=== PATIENT | male | born 1945 | race Hispanic/Latino ===

== ENCOUNTER 2016-08-06 10:17 | Inpatient (IN) | payer MEDICARE ==
--- NOTE | 2016-08-06 11:22 | ED PDOC ---
Arrival/HPI - General Chief Complaint: Lower Extremity Problem/Injury Time Seen by Provider: 08/06/16 10:59 Historian: Patient - History of Present Illness Narrative History of Present Illness (Text): 08/06/16 11:20 70 year old male whose past medical history includes congestive heart failure, pleural effusion, atrial fibrillation, diabetes, hypertension, and lower extremity edema presents to the emergency department with left knee pain and right wrist pain for the past 2 days. Patient states he has had similar knee pain in the past and reports history of arthritis in the left lower extremity. He states he has not seen his PMD for this episode. No other complaints at this time. Time/Duration: < week Symptom Onset: Gradual Symptom Course: Unchanged Associated Symptoms (Text): None Past Medical History - Provider Review Nursing Documentation Reviewed: Yes - Infectious Disease Hx of Infectious Diseases: None - Tetanus Immunization Tetanus Immunization: Unknown - Cardiac Hx Cardiac Disorders: Yes (mi x3,HEART STENTS) Hx Congestive Heart Failure: Yes Hx Hypertension: Yes - Pulmonary Hx Respiratory Disorders: Yes (SMOKED CIGARETTES 1 PPD) - Neurological Hx Neurological Disorder: Yes (NEUROPATHY) - HEENT Hx HEENT Disorder: No - Renal Hx Renal Disorder: No - Endocrine/Metabolic Hx Diabetes Mellitus Type 2: Yes - Hematological/Oncological Hx Blood Disorders: Yes Hx Cancer: Yes (stomacg ca, 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 QUIT.) Hx Emotional Abuse: No Hx Physical Abuse: No Hx Substance Use: No - Surgical History Hx Amputation: Yes (1960 amputation of all toes on right foot) Other/Comment: multiple heart catherizations - Anesthesia Hx Anesthesia: Yes Hx Anesthesia Reactions: No Hx Malignant Hyperthermia: No - Suicidal Assessment Feels Threatened In Home Enviroment: No Family/Social History - Physician Review Nursing Documentation Reviewed: Yes Family/Social History: Unknown Family HX Smoking Status: Former Smoker Hx Alcohol Use: Yes (QUIT 2015 DRINKS 6 PK/BEER DAILY.) Hx Substance Use: No Hx Substance Use Treatment: No Allergies/Home Meds Allergies/Adverse Reactions: Allergies No Known Allergies Allergy (Verified 08/06/16 10:49) Home Medications: Home Meds Medication Instructions Recorded Confirmed Digoxin 125 mcg PO DAILY 02/24/12 08/06/16 Glipizide [Glucotrol Xl] 10 mg PO BID 02/24/12 08/06/16 Metformin HCl [Metformin HCl ER] 1,000 mg PO BID 02/24/12 08/06/16 Carvedilol [Coreg] 25 mg PO BID 11/08/15 08/06/16 Ergocalciferol (Vitamin D2) 2,000 iu PO BID 11/08/15 08/06/16 [Vitamin D2] Famotidine [Pepcid] 20 mg PO BID 11/08/15 08/06/16 Flaxseed Oil [Natural Flax Seed 2,000 mg PO BID 11/08/15 08/06/16 Oil] Gabapentin [Neurontin] 600 mg PO TID 11/08/15 08/06/16 Nitroglycerin [Nitrostat] 0.4 mg SL PRN PRN 11/08/15 08/06/16 [id number] Ethyl Esters [OMEGA 3] 2,000 mg PO BID 11/08/15 08/06/16 Pravastatin Sodium 40 mg PO DAILY 11/08/15 08/06/16 Vit Bcomp,C/Folic Acid/Zinc [Abena 1 tab PO DAILY 11/08/15 08/06/16 B Strong with C & Zinc Tb] Vitamin E Acetate [Vitamin E] 800 unit PO BID 11/08/15 08/06/16 Warfarin [Coumadin] 2.5 mg PO DAILY 11/08/15 08/06/16 [id number] CD [Cardizem CD] 180 mg PO DAILY 11/08/15 08/06/16 Aspirin [Ecotrin] 81 mg PO DAILY 11/12/15 08/06/16 Review of Systems - Physician Review All systems were reviewed & negative as marked: Yes Physical Exam - Physical Exam Narrative Physical Exam (Text): - Review of Systems Constitutional: Normal. absent: Fatigue, Weight Change, Fevers Eyes: Normal ENT: Normal Respiratory: Normal absent: SOB, Cough, Sputum Cardiovascular: Normal absent: Chest pain, Palpitations, Syncope Gastrointestinal: Normal absent: Abdominal pain, Diarrhea, Nausea, Vomiting Genitourinary: Normal. absent: Dysuria, Frequency, Hematuria Musculoskeletal: Right wrist pain, Left knee pain. absent: Back Pain, Neck Pain Skin: Normal Neurological: Normal absent: Focal Weakness Endocrine: Normal Hemo/Lymphatic: Normal Psychiatric: Normal - Physical exam Patient appears age appropriate, speaking full sentences without difficulty - Systems Exam Head: Present: Atraumatic, Normocephalic Pupils: Present: PERRL Extraocular Muscles: Present: EOMI Conjunctiva: Present: Normal Mouth: Present: Moist Mucous Membranes Neck: Present: Normal Range of Motion. No: MIDLINE TENDERNESS, Paraspinal Tenderness Respiratory/Chest: Present: Clear to Auscultation, Good Air Exchange. No: Respiratory Distress, Accessory Muscle Use, Tachypneic Cardiovascular: Present: Regular Rate, Irregular Rhythm, Normal S1, S2, Peripheral Pulses Present. No: Murmurs Abdomen: Present: Normal Bowel Sounds, No: Tenderness, Peritoneal Signs, Rebound, Guarding, Distention Back: Present: Normal Inspection. No: Midline Tenderness, Paraspinal Tenderness Upper Extremity: Present: Right wrist: Tenderness to palpation, Swelling, Distal neurovascular intact, Full range of motion. No: Erythema Lower Extremity: Present: Left lower extremity: Tenderness to palpation over the medial aspect of the left knee, Distal neurovascular intact, Full range of motion. No swelling or effusion appreciated. No tenderness over patella. No warmth or erythema. Neurological: Present: GCS=15, Speech Normal, cranial nerves II through XII fully intact with no cerebellar abnormality, neuro-sensory fully intact. No focal neurological deficits. Skin: Present: Warm, Dry, Normal Color. No: Rashes Lymphatic: Present: OX3, NI, NC Psychiatric: Present: Alert, Oriented x 3, Normal Insight, Normal Concentration Vital Signs Reviewed: Yes Vital Signs Temp Pulse Resp BP Pulse Ox 08/06/16 13:51 59 L 18 127/68 98 08/06/16 12:37 67 18 118/75 92 L 08/06/16 10:51 98.9 F 76 16 114/63 91 L Temperature: Afebrile Blood Pressure: Normal Pulse: Regular Respiratory Rate: Normal Appearance: Positive for: Well-Appearing, Non-Toxic Mental Status: Positive for: Alert and Oriented X 3 Medical Decision Making ED Course and Treatment: Impression: 70 year old male whose past medical history includes congestive heart failure, pleural effusion, atrial fibrillation, diabetes, hypertension, and lower extremity edema presents to the emergency department with left knee pain and right wrist pain for the past 2 days. On physical exam, patient has tenderness to palpation and swelling of the right wrist, and tenderness to palpation over the medial aspect of the left knee. Patient ambulating with cane, bearing weight. Full range of motion. Based on history and physical, no suspicion for septic joint. Differential Diagnosis include but are not limited to: Gout vs arthritis Plan: -- XR's Right wrist, Left knee -- Labs -- Percocet -- Reassess and disposition Prior Visits: Notes and results from previous visits were reviewed. Patient last discharged after being treated for CHF. Progress Notes: XR Right Wrist Chocolate Molder: Michoacano Sanabria MD IMPRESSION: Normal right wrist radiographs XR Left Knee Chocolate Molder: Michoacano Sanabria MD IMPRESSION: Normal radiographs of the left knee. 08/06/16 14:06 pt was informed that we need to perform arthrocenthesis for further w/u, but he refused. I then offered admission for med. management, but pt asked to be dc'd home states he would like to f/u with an orthopedist outpatient 08/06/16 14:16 pt unable to ambulate in the ER states he leans on his R. hand with cane and lives alone pt now willing to stay in the hospital dw Dr. Ivory Holt, accepted admission to his service, Dr. Solitario on consult pt aware of and agrees with plan - Lab Interpretations Lab Results: 08/06/16 11:44 08/06/16 11:44 Lab Results 08/06/16 11:44: Sodium 140, Potassium 4.1, Chloride 99, Carbon Dioxide 30, Anion Gap 15, BUN 27 H, Creatinine 1.6 H, Est GFR ( Amer) 52, Est GFR ( Non-Af Amer) 43, Random Glucose 86, Calcium 9.7, Total Bilirubin 1.8 H, AST 33, ALT 23, Alkaline Phosphatase 73, Total Protein 8.3, Albumin 4.5, Globulin 3.7, Albumin/Globulin Ratio 1.2 08/06/16 11:44: PT 15.1 H, INR 1.40 H, APTT 33.0 H 08/06/16 11:44: WBC 7.6 D, RBC 4.80, Hgb 11.8 L, Hct 36.7 L, MCV 76.5 L, MCH 24.6 L, MCHC 32.2, RDW 19.8 H, Plt Count 168, MPV 10.0, Gran % 74.9 H, Lymph % ( Auto) 13.4 L, Tyrrell % (Auto) 10.7 H, Eos % (Auto) 0.3 L, Baso % (Auto) 0.7, Gran # 5.70, Lymph # 1.0 L, Tyrrell # 0.8 H, Eos # 0.0, Baso # 0.05, ESR 35 H - RAD Interpretation Radiology Orders: 08/06/16 11:24 KNEE LEFT 2 VIEWS (AP & LAT) [RAD] Stat WRIST, RIGHT 3 VIEWS [RAD] Stat - Medication Orders Current Medication Orders: Discontinued Medications Oxycodone/Acetaminophen (Percocet 5/325 Mg Tab) 1 tab PO STAT STA Stop: 08/06/16 11:25 Last Admin: 08/06/16 11:43 Dose: 1 tab - Scribe Statement The provider has reviewed the documentation as recorded by the Chepe Bangura Provider Scribe Attestation: All medical record entries made by the Chepe were at my direction and personally dictated by me. I have reviewed the chart and agree that the record accurately reflects my personal performance of the history, physical exam, medical decision making, and the department course for this patient. I have also personally directed, reviewed, and agree with the discharge instructions and disposition. Disposition/Present on Arrival - Present on Arrival Any Indicators Present on Arrival: No History of DVT/PE: No History of Uncontrolled Diabetes: No Urinary Catheter: No History of Decub. Ulcer: No History Surgical Site Infection Following: None - Disposition Have Diagnosis and Disposition been Completed?: Yes Diagnosis: Arthralgia Disposition: HOSPITALIZED Disposition Time: 14:10 Patient Plan: Admission Patient Problems: Current Active Problems Problem Status Onset Arthralgia Acute Condition: FAIR Prescriptions: oxyCODONE/Acetaminophen [Percocet 5/325 mg Tab] 1 ea PO BID PRN #6 tab PRN Reason: Pain, Moderate (4-7) Referrals: Palmer Whalen MD [Primary Care Provider] - Follow up with primary
[2016-08-06] MEDS ORDERED: Oxycodone/Acetaminophen 5/325 mg Tab PO STA (11:24)
[2016-08-06 11:46] LABS: ADD MANUAL DIFF? NO
[2016-08-06 12:02] LABS: ALB/GLOB RATIO 1.2 (1.1-1.8); BILIRUBIN,TOTAL 1.8 mg/dL (0.2-1.3); CALCIUM 9.7 mg/dL (8.4-10.5); POTASSIUM 4.1 mmol/L (3.6-5.0); TOTAL PROTEIN 8.3 g/dL (5.8-8.3)
[2016-08-06 12:03] LABS: BASO # 0.05 K/mm3 (0.0-2.0); BASO % 0.7 % (0.0-3.0); EOS % 0.3 % (1.5-5.0); GRAN % 74.9 % (50.0-68.0); HEMATOCRIT 36.7 % (42.0-52.0); LYMPH % 13.4 % (22.0-35.0); MEAN CELL VOLUME 76.5 fL (80.0-105.0); MEAN CORPUSCULAR HEMOGLOBIN 24.6 pg (25.0-35.0); MEAN CORPUSCULAR HGB CONC 32.2 g/dl (31.0-37.0); MONO # 0.8 (0.1-0.6); MONO % 10.7 % (1.0-6.0); PLATELET COUNT 168 10^3/uL (120.0-450.0); RED CELL DISTRIBUTION WIDTH 19.8 % (11.5-14.5); WHITE BLOOD COUNT 7.6 10^3/ul (4.5-11.0)
[2016-08-06 12:06] LABS: INR 1.4 (0.93-1.08)
--- NOTE | 2016-08-06 12:38 | RAD ---
PROCEDURE: Left Knee Radiographs. HISTORY: Pain. COMPARISON: None. FINDINGS: BONES: Normal. No fracture. JOINTS: Normal. No osteoarthritis. JOINT EFFUSION: None. OTHER FINDINGS: None. IMPRESSION: Normal radiographs of the left knee.
--- NOTE | 2016-08-06 12:39 | RAD ---
PROCEDURE: Right Wrist Radiographs. HISTORY: swelling, pain COMPARISON: None. FINDINGS: BONES: Normal. No fracture. JOINTS: Normal. No dislocation. SOFT TISSUES: Normal. OTHER FINDINGS: None. IMPRESSION: Normal right wrist radiographs.
[2016-08-06 13:40] LABS: ERYTHROCYTE SEDIMENTATION RATE 35 mm/hr (0.00-15.0)
[2016-08-06] MEDS ORDERED: cefTRIAXone 1 gm 100 ML IV STA (14:13)
[2016-08-06] MEDS ORDERED: cefTRIAXone 1 gm 1 GM/100 ML BAG IV STA (14:15)
[2016-08-06] MEDS: Oxycodone/Acetaminophen 5/325 mg Tab PO PRN ×2 (14:48→18:34)
[2016-08-06] MEDS: Digoxin 125 mcg (0.125 mg) Tab PO SCH (16:14)
[2016-08-06] MEDS: diltiaZEM 180 mg/24 Hours CD Cap PO SCH (18:26)
[2016-08-06] MEDS: GlipiZIDE 10 mg SR Tab PO SCH (18:27)
[2016-08-07 02:41] VITALS: BMI 25.9
[2016-08-07] MEDS: diltiaZEM 180 mg/24 Hours CD Cap PO SCH (09:29)
[2016-08-07] MEDS: Digoxin 125 mcg (0.125 mg) Tab PO SCH (09:32)
[2016-08-07] MEDS: GlipiZIDE 10 mg SR Tab PO SCH ×2 (09:32→17:15)
[2016-08-07] MEDS: Enoxaparin 80 mg Syringe SC SCH ×2 (09:33→21:35)
[2016-08-07] MEDS ORDERED: Bupivacaine 0.5% Inj(30mL) IJ ONE (09:38)
[2016-08-07] MEDS ORDERED: MethylPREDNISolone Depo 40 mg/ml Inj IM ONE (09:38)
[2016-08-07 10:01] LABS: FLUID TYPE SYNOVIAL FLUID
--- NOTE | 2016-08-07 10:41 | HP ---
CHIEF COMPLAINT AND HISTORY OF PRESENT ILLNESS: This is a 70-year-old male who is coming into the [facility] with complaints of swelling in his left knee and right wrist. The patient says this started h appening about 2-3 days ago and has been getting progressively worse. He has a history of diabetes, hypertension, atrial fibrillation, CHF. The patient says that he has difficulty in ambulating becaus e of the pain. He has no fevers or chills, no nausea, no vomiting, no abdominal pain, no back pain, no dysuria or frequency, no nocturia. ALLERGIES: No known drug allergies. PAST MEDICAL HISTORY: As above. 1. Congestive heart failure secondary to systolic dysfunction. 2. Coronary artery disease with stents. 3. Atrial fibrillation. 4. Defibrillator. 5. Hypertension. 6. Diabetes type 2. 7. Stomach cancer in 1997. 8. Peripheral neuropathy. PAST SURGICAL HISTORY: 1. Stomach surgery in 1997. 2. Amputation of the toes of the right foot. SOCIAL HISTORY: He says he smokes 1 pack per day for 50 years. He was an alcoholic but quit in 2015 . He was drinking 6 pack of beer per day. He denies drug use. 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 FAMILY HISTORY: Father at 72 of diabetes. Mother at 94 of old age. PHYSICAL EXAMINATION: VITAL SIGNS: He has a temperature of 98.2, pulse of 56, blood pressure 115/66, respirations 18, O2 s aturation 94%. Height is 5 feet 11 inches. Weight is 186 pounds, BMI is 25.9. GENERAL: Patient lying in bed, flat, and in no apparent distress. HEAD AND NECK EXAM: Atraumatic, normocephalic. Conjunctivae are pink. Throat clear and mouth with moist mucosa. Oropharynx benign. EYES: Extraocular movements are intact. PERRLA. NECK: Supple. No JVD, thyromegaly, or adenopathy. No bruits. HEART: S1 and S2 regular rate and rhythm. No murmurs, rubs, or gallops. LUNGS: Clear to auscultation bilaterally. No wheezing rales or rhonchi appreciated. No retractions on exam. ABDOMEN: Soft, nontender, nondistended. Bowel sounds are positive in all quadrants. No rebound. No hepatosplenomegaly. EXTREMITIES: No cyanosis, clubbing, or edema. NEURO: No facial asymmetry, tongue is midline, no uvula deviation. Power is 5/5 in upper extremity and 5/5 in lower extremity. Sensation is normal in upper extremity and lower extremity. PSYCH: Awake, alert, oriented x3. No anxiety or depression symptoms. Good insight. Normal affect . : No CVA tenderness VASCULAR: 2+ pulses in carotid and pedal pulses. SKIN: No erythema or abnormal nodules noted. SPINE: Normal curvature. LYMPHADENOPATHY: No anterior cervical or posterior cervical adenopathy. No inguinal adenopathy. RIGHT HAND: There is swelling. Decreased range of motion of the right wrist because of pain. LEFT KNEE: There is swelling. There is pain on palpation. LABORATORY DATA: White count of 7.6, hemoglobin 11.8, platelet count is 168. Chemistry shows a sodi um 140, potassium 4.1, creatinine is 1.6. His baseline creatinine is 1.6 initially. His uric acid i s 13. Wrist x-ray of right shows normal wrist. Left knee x-ray shows normal radiographs of the left knee. Chest x-ray shows no infiltrates. ASSESSMENT: 1. Acute gout attack. 2. Atrial fibrillation. 3. Diabetes type 2. 4. Coronary artery disease. 5. Hypertension. 6. Smoking. 7. Gait dysfunction, right. 8. Neuropathy. PLAN: The patient is going to be admitted to the hospital. He is going to be seen by Dr. Markus ch. The patient is on Coumadin. He is going to continue. He is on aspirin. The patient is on Gluc otrol for his diabetes. He is receiving Neurontin for neuropathy. The patient was given a dose of R ocephin. I will place him on colchicine. I will also get evaluation by orthopedics. He is subthera peutic on his anticoagulation so I will place him on Lovenox. Kike Holt MD cc: [id number] TT: 08/07/2016 10:40:40 nd
[2016-08-07 10:54] LABS: SYNOVIAL FLUID LYMPHOCYTE 22.5 % (0-0); SYNOVIAL FLUID NEUTROPHIL 77.5 % (0-0); SYNOVIAL FLUID TOTAL COUNT 100 (0-0)
--- NOTE | 2016-08-07 10:56 | CON ---
DATE: 08/07/2016 This is a 70-year-old male in room 561, bed 1. Complaint of left knee pain and right wrist pain. Past history of gout and he does have a high uric acid, and he has an effusion of his left knee and an effusion and tenderness of his right wrist ulnar side. So we did an aspiration arthrocentesis of his left knee, taking out 50 mL of turbid fluid and irrigated it with 20 mL of normal saline to dilute the abnormal fluid and injected with Depo-Medrol and Marcaine. With the wrist, we localized the pain to the ulnar side of the right wrist dorsally. You could feel like there is some fluid, so we put a 23 gauge needle in there. Was unable to aspirat e any fluid, but we did inject with Depo-Medrol and Marcaine as it was swollen. With history of gout , it looks like it is an inflammatory arthritis of the right wrist and left knee, but the fluid from the knee will be going for culture, cell count and crystal analysis. We will follow him closely and, if need be, we can get a culture from the right wrist if it reaccumulates next time. FINAL DIAGNOSES: Pain at the left knee and right wrist with inflammatory arthritis as the x-rays do show signs of mild arthritis of the left knee and right wrist. Will wait to see how the response is to the injections. In the meantime, will send the fluid for analysis for a cell count, culture and c rystals. Michoacano Trinh DO cc: [id number] TT: 08/07/2016 10:55:48 Confirmation # [id number] Dictation # [id number] mn
[2016-08-07] MEDS: Oxycodone/Acetaminophen 5/325 mg Tab PO PRN ×3 (12:04→21:33)
[2016-08-07] MEDS ORDERED: Insulin Regular 1 UNITS/0.01 ML ML SC STA (21:21)
--- NOTE | 2016-08-07 21:32 | CP.PCM.PN ---
Subjective - Date & Time of Evaluation Date of Evaluation: 08/07/16 Time of Evaluation: 21:23 - Subjective Subjective: S:Nurse calls me and gives me information that FSBS 500 mg%,On steroids. He was seen by me at bedside. He has no symptoms. No history of DM. Has family history of DM, father and mother both have DM. Medical record was reviewed. O: Last Vital Signs 3 Temp 98.2 F 08/07/16 16:00 Pulse 61 08/07/16 17:20 Resp 19 08/07/16 16:00 BP 120/61 08/07/16 17:20 Pulse Ox 95 08/07/16 16:00 Awake, alert ,no in distress. LUNGS: Normal breathing pattern. NEURO: Speech normal. A:Hyperglycemia. On steroids. P:Regular insulin 15 units SC STAT. Will place on medium sliding scale. Objective - Vital Signs/Intake and Output Vital Signs (last 24 hours): Temp Pulse Resp BP Pulse Ox 98.2 F 61 19 120/61 95 08/07/16 16:00 08/07/16 17:20 08/07/16 16:00 08/07/16 17:20 08/07/16 16:00 - Medications Medications: Current Medications Aspirin (Ecotrin) 81 mg PO DAILY [facility] Last Admin: 08/07/16 09:32 Dose: 81 mg Carvedilol (Coreg) 25 mg PO BID [facility] Last Admin: 08/07/16 17:20 Dose: 25 mg Colchicine (Colocrys) 0.6 mg PO BID [facility] Last Admin: 08/07/16 17:14 Dose: 0.6 mg Digoxin (Lanoxin) 0.125 mg PO DAILY [facility] Last Admin: 08/07/16 09:32 Dose: 0.125 mg Diltiazem HCl (Cardizem Cd) 180 mg PO DAILY [facility] Last Admin: 08/07/16 09:29 Dose: 180 mg Enoxaparin Sodium (Lovenox) 80 mg SC Q12H [facility] PRN Reason: Protocol Last Admin: 08/07/16 09:33 Dose: 80 mg Famotidine (Pepcid) 20 mg PO BID [facility] Last Admin: 08/07/16 17:16 Dose: 20 mg Furosemide (Lasix) 40 mg PO BID [facility] Last Admin: 08/07/16 17:15 Dose: 40 mg Gabapentin (Neurontin) 600 mg PO TID [facility] PRN Reason: Protocol Last Admin: 08/07/16 17:15 Dose: 600 mg Glipizide (Glucotrol Xl) 10 mg PO BID [facility] Last Admin: 08/07/16 17:15 Dose: 10 mg Insulin Human Regular (Humulin R) 15 units SC STAT STA Stop: 08/07/16 21:22 Oxycodone/Acetaminophen (Percocet 5/325 Mg Tab) 1 tab PO Q4H PRN PRN Reason: Pain, moderate (4-7) Stop: 08/09/16 14:21 Last Admin: 08/07/16 17:16 Dose: 1 tab Prednisone (Prednisone Tab) 20 mg PO DAILY [facility] Last Admin: 08/07/16 09:34 Dose: 20 mg Warfarin Sodium (Coumadin) 2.5 mg PO HS [facility] PRN Reason: Protocol Last Admin: 08/06/16 22:28 Dose: 2.5 mg - Labs Labs: PT 15.1 Seconds (9.9-11.8) H 08/06/16 11:44 INR 1.40 (0.93-1.08) H 08/06/16 11:44 APTT 33.0 Seconds (23.7-30.8) H 08/06/16 11:44
[2016-08-07] MEDS: Insulin Reg-MEDIUM-Coverage SC SCH (22:18)
[2016-08-08 07:33] LABS: HEMATOCRIT 33.9 % (42.0-52.0); MEAN CELL VOLUME 76.2 fL (80.0-105.0); MEAN CORPUSCULAR HEMOGLOBIN 24.7 pg (25.0-35.0); MEAN CORPUSCULAR HGB CONC 32.4 g/dl (31.0-37.0); MEAN PLATELET VOLUME 10.3 fl (7.0-11.0); RED CELL DISTRIBUTION WIDTH 19.5 % (11.5-14.5)
[2016-08-08 07:49] LABS: INR 1.47 (0.93-1.08)
[2016-08-08 07:51] LABS: ALB/GLOB RATIO 1.1 (1.1-1.8); CALCIUM 8.9 mg/dL (8.4-10.5); POTASSIUM 4.2 mmol/L (3.6-5.0)
[2016-08-08] MEDS: Insulin Reg-MEDIUM-Coverage SC SCH (08:29)
[2016-08-08] MEDS: GlipiZIDE 10 mg SR Tab PO SCH ×2 (09:57→17:20)
[2016-08-08] MEDS: Digoxin 125 mcg (0.125 mg) Tab PO SCH (09:57)
[2016-08-08] MEDS: diltiaZEM 180 mg/24 Hours CD Cap PO SCH (09:58)
[2016-08-08] MEDS: Oxycodone/Acetaminophen 5/325 mg Tab PO PRN (10:07)
[2016-08-08] MEDS: Enoxaparin 80 mg Syringe SC SCH ×2 (10:08→21:25)
--- NOTE | 2016-08-08 11:05 | PN ---
DATE: 08/08/2016 A 70-year-old male in room 561, bed 1. The patient was seen yesterday for swelling of his left knee and right wrist. We aspirated the left knee with arthrocentesis evacuating turbid fluid. So far the cultures are pending, but the white count was under 3300, which does not speak for an infection, but he could have an inflammatory arthritis. There was no uric acid crystals seen and no signs of pseud ogout on the x-ray. His wrist was also injected with Depo-Medrol as well as the knee on the left enid e and that is improved also, it is still somewhat swollen, but there is no evidence of a bacterial in fection but I will order tests for Lyme's disease and rheumatoid arthritis and follow him up. As rene g he is getting better, there is no need for surgical intervention. We have to make a better diagnos is with further testing because the uric acid serum-camarena was quite elevated. We will follow him jeovany aaron. Michoacano Trinh DO cc: [id number] TT: 08/08/2016 11:05:34 Confirmation # [id number] Dictation # [id number] rosy
[2016-08-08] MEDS: Insulin Lispro (HUMAlog) HIGH Coverage SC SCH ×3 (12:20→21:25)
[2016-08-08] MEDS: MethylPREDNISolone 40 mg Vial IV SCH ×2 (12:20→21:26)
--- NOTE | 2016-08-08 13:08 | PN ---
DATE: 08/08/2016 SUBJECTIVE: The patient is a 70-year-old, seen and examined, complaining of right hand pain and redn ess, swelling and also complained of left knee pain, has paracentesis done yesterday, still in pain. He states Percocet helps a little bit. PHYSICAL EXAMINATION: VITAL SIGNS: He is afebrile, pulse 55, respirations 20, blood pressure 132/62. LUNGS: Bilateral fair airflow, no rhonchi or crackle. HEART: S1, S2 audible. ABDOMEN: Soft, nontender, no rebound, no guarding. NEUROLOGIC: He is awake and alert, able to communicate. His right base of thumb is red extending to avina the wrist and has left knee effusion with limited mobility. LABORATORY: WBC 6.0, hemoglobin 11, hematocrit 33, platelet of 146. PT 15.9, INR 1.47. Chemistry: Sodium 133, potassium 4.2, chloride 97, CO2 29, BUN 40, creatinine 1.5, blood sugar 386, uric acid i s 13.0, C-reactive protein is 15. Blood culture and urine cultures are negative. ASSESSMENT: 1. Probably acute gouty arthritis. 2. Chronic atrial fibrillation. 3. Hypertension. 4. Hyperlipidemia. 5. Non-insulin dependent diabetes. PLAN: The patient is on Cardizem-CD. I will increase his colchicine to 0.6 t.i.d. for today. Noemí nue him on his Coumadin, monitor his blood sugar, IV steroids and analgesic as needed. We will follo w up patient in a.m. Diane Kirkland MD cc: [phone] TT: 08/08/2016 13:07:43 Confirmation # [id number] Dictation # [id number] michelle
[2016-08-08] MEDS: HYDROmorphone 2 mg/ml ISec IVP PRN (21:31)
[2016-08-09] MEDS: HYDROmorphone 2 mg/ml ISec IVP PRN ×2 (02:07→06:37)
[2016-08-09] MEDS: Pantoprazole 40 mg EC Tab PO SCH (05:40)
[2016-08-09] MEDS: Insulin Lispro (HUMAlog) HIGH Coverage SC SCH ×4 (08:30→21:48)
[2016-08-09] MEDS: MethylPREDNISolone 40 mg Vial IV SCH ×2 (09:00→21:52)
[2016-08-09] MEDS: GlipiZIDE 10 mg SR Tab PO SCH ×2 (09:01→17:15)
[2016-08-09] MEDS: diltiaZEM 180 mg/24 Hours CD Cap PO SCH (09:09)
[2016-08-09] MEDS: Digoxin 125 mcg (0.125 mg) Tab PO SCH (09:12)
[2016-08-09] MEDS: Enoxaparin 80 mg Syringe SC SCH ×2 (09:12→21:53)
[2016-08-09 12:09] LABS: LYME DISEASE SCREEN <0.90 index
[2016-08-09] MEDS: Cefpodoxime (Vantin) 200 mg Tab PO SCH ×2 (12:17→21:53)
[2016-08-09] MEDS: Levalbuterol 1.25 MG/3 ML Inhal Soln UD IH SCH ×3 (13:27→23:30)
--- NOTE | 2016-08-09 13:58 | PN ---
DATE: 08/09/2016 SUBJECTIVE: The patient is a 70-year-old, seen and examined, complained of some cough and congestion . The left knee pain seems to be a little better. Right hand pain is better also. PHYSICAL EXAMINATION: VITAL SIGNS: Afebrile, pulse 47, respirations 18, blood pressure 121/77. LUNGS: Bilateral fair airflow, few expiratory rhonchi. HEART: S1, S2 audible. ABDOMEN: Soft, nontender, no rebound, no guarding. NEUROLOGIC: He is awake and alert. EXTREMITIES: Limited movement because of the pain in the left knee. Right hand movement is also limi viviana because of pain, but has improved since yesterday. LABORATORY: PT is 15.9, INR 1.47. Chemistry: Sodium 133, potassium 4.2, chloride 97, CO2 of 40, BU N 1.5, blood sugar 386. ASSESSMENT AND PLAN: 1. Right hand gouty arthritis. 2. Renal insufficiency. 3. Non-insulin dependent diabetes. 4. Chronic atrial fibrillation. 5. Asthmatic bronchitis. PLAN: Will start him on nebulizer treatment. He is already on IV steroids. Will add antibiotics, _ ____, discontinue , continue on colchicine and steroids, and will reevaluate the patient in a.m. Diane Kirkland MD cc: [id number] TT: 08/09/2016 13:57:36 Confirmation # [id number] Dictation # [id number] ln
[2016-08-10] MEDS: Levalbuterol 1.25 MG/3 ML Inhal Soln UD IH SCH ×4 (02:46→20:17)
[2016-08-10] MEDS: Pantoprazole 40 mg EC Tab PO SCH (05:55)
[2016-08-10 07:08] LABS: ADD MANUAL DIFF? NO
[2016-08-10 07:26] LABS: GRAN # 3.64 (1.4-6.5); GRAN % 85.6 % (50.0-68.0); HEMATOCRIT 33.8 % (42.0-52.0); LYMPH # 0.3 (1.2-3.4); LYMPH % 7.1 % (22.0-35.0); MEAN CELL VOLUME 74.8 fL (80.0-105.0); MEAN CORPUSCULAR HEMOGLOBIN 24.1 pg (25.0-35.0); MEAN CORPUSCULAR HGB CONC 32.2 g/dl (31.0-37.0); MEAN PLATELET VOLUME 10.1 fl (7.0-11.0); MONO # 0.3 (0.1-0.6); MONO % 7.3 % (1.0-6.0); PLATELET COUNT 151 10^3/uL (120.0-450.0); RED CELL DISTRIBUTION WIDTH 19.1 % (11.5-14.5); WHITE BLOOD COUNT 4.3 10^3/ul (4.5-11.0)
[2016-08-10 07:28] LABS: INR 2.35 (0.93-1.08)
[2016-08-10 07:29] LABS: ALB/GLOB RATIO 1.2 (1.1-1.8); ALKALINE PHOSPHATASE 67 U/L (38-133); ALT/SGPT 46 U/L (7-56); AST/SGOT 63 U/L (15-59); BILIRUBIN,TOTAL 0.7 mg/dL (0.2-1.3); BLOOD UREA NITROGEN 70 mg/dL (7-21); CALCIUM 7.7 mg/dL (8.4-10.5); CARBON DIOXIDE 24 mmol/L (21-33); CHLORIDE 96 mmol/L (95-110); GFR AFRICAN-AMERICAN > 60; POTASSIUM 4.3 mmol/L (3.6-5.0); SODIUM 131 mmol/L (132-148); TOTAL PROTEIN 6.5 g/dL (5.8-8.3)
[2016-08-10 07:58] LABS: GLUCOSE,RANDOM 373 mg/dL (70-110)
[2016-08-10] MEDS: Insulin Lispro (HUMAlog) HIGH Coverage SC SCH ×3 (08:09→17:47)
--- NOTE | 2016-08-10 08:56 | DS ---
This is a 70-year-old male who had come in to the hospital because of an acute swelling of his right hand and also his left knee. The patient was having difficulty in ambulating. He has been using a c ane, but it is becoming difficult because of his swelling. The patient had been placed on colchicine . He did have improvement of his symptoms. He was seen by orthopedics. He has no complaints of any chest pain, no shortness of breath, no headaches, or dizziness. We will see if he qualifies for tra [facility] care unit after he is seen by physical therapy. OBJECTIVE: VITAL SIGNS: Temperature is 98.3, pulse of 52. Blood pressure is 105/64, respirations 18, O2 satura tion 96. GENERAL: The patient is comfortable, in no acute distress. HEENT: Anicteric sclerae. Moist mucosa. NECK: No JVD or adenopathy. CARDIAC: S1/S2. No murmurs. No rubs. Regular. RESPIRATORY: Clear to auscultation bilaterally. No wheezes, rales, or rhonchi. Good air entry. ABDOMEN: Bowel sounds are positive, soft, nontender, and nondistended. EXTREMITIES: No edema. Has 1+ pulses. ASSESSMENT: 1. Acute gout attack. 2. Atrial fibrillation. 3. Diabetes type 2. 4. Coronary artery disease. 5. Hypertension. 6. Smoking. 7. Gait dysfunction. 8. Neuropathy. PLAN: The patient is currently comfortable. He has a rheumatoid factor that has been ordered. He i s going to be on Cardizem. He is on colchicine daily. He is on Coumadin for his atrial fibrillation . His last INR was subtherapeutic. He has an INR that is pending this morning. The patient is on g lipizide for his diabetes. He is going to be on Lasix daily. He is on Lovenox for anticoagulation. He is receiving steroids. He is on antibiotics with Vantin. He is on a heart-healthy diet. CONDITION: Stable. ACTIVITIES: Increase as tolerated. Follow up with primary care doctor in 1-2 weeks. Follow up with orthopedics in 2-3 weeks. Kike Holt MD cc: [id number] TT: 08/10/2016 08:55:28 jn
[2016-08-10] MEDS ORDERED: Insulin Lispro 1 UNITS/0.01 ML SC ONE (09:06)
[2016-08-10] MEDS: diltiaZEM 180 mg/24 Hours CD Cap PO SCH (09:41)
[2016-08-10] MEDS: Digoxin 125 mcg (0.125 mg) Tab PO SCH (09:42)
[2016-08-10] MEDS: GlipiZIDE 10 mg SR Tab PO SCH ×2 (09:42→17:48)
[2016-08-10] MEDS: Cefpodoxime (Vantin) 200 mg Tab PO SCH (09:44)
[2016-08-10] MEDS: Oxycodone/Acetaminophen 5/325 mg Tab PO PRN ×2 (09:44→14:02)
[2016-08-10] MEDS: MethylPREDNISolone 40 mg Vial IV SCH (09:44)
[2016-08-10 09:48] VITALS: PULSE 64
[2016-08-10] MEDS: Enoxaparin 80 mg Syringe SC SCH (09:48)
[2016-08-10 17:35] VITALS: BP 109/55; RESP 18; TEMP 97.2; O2SAT 96
[2016-08-10 17:50] VITALS: PULSE 54
== END 2016-08-10 20:38 | DRG 554 ==
LOC: ED 10:17 → ERH 14:20 → 5RNO 18:02
PROVIDERS: ADMIT Internal Medicine Nephrology; ATTEND Internal Medicine Nephrology
PROC: 0S9D3ZZ Drainage of Left Knee Joint, Percutaneous Approach (ICD-10-PCS; principal; 2016-08-07)
PROC: 3E0U33Z Introduction of Anti-inflammatory into Joints, Percutaneous Approach (ICD-10-PCS; 2016-08-07)
PROC: 3E0U3BZ Introduction of Anesthetic Agent into Joints, Percutaneous Approach (ICD-10-PCS; 2016-08-07)
DX: M10.9 Gout, unspecified (principal); I11.0 Hypertensive heart disease with heart failure; E11.621 Type 2 diabetes mellitus with foot ulcer; I50.20 Unspecified systolic (congestive) heart failure; I48.2 Chronic atrial fibrillation; E11.65 Type 2 diabetes mellitus with hyperglycemia; L97.509 Non-pressure chronic ulcer of other part of unspecified foot with unspecified severity; G62.9 Polyneuropathy, unspecified; M06.4 Inflammatory polyarthropathy; E78.5 Hyperlipidemia, unspecified; F17.200 Nicotine dependence, unspecified, uncomplicated; I25.10 Atherosclerotic heart disease of native coronary artery without angina pectoris; R26.9 Unspecified abnormalities of gait and mobility; I25.2 Old myocardial infarction; Z95.5 Presence of coronary angioplasty implant and graft; Z85.028 Personal history of other malignant neoplasm of stomach; J45.909 Unspecified asthma, uncomplicated; K21.9 Gastro-esophageal reflux disease without esophagitis; N28.9 Disorder of kidney and ureter, unspecified; Z79.01 Long term (current) use of anticoagulants; Z79.82 Long term (current) use of aspirin; Z79.84 Long term (current) use of oral hypoglycemic drugs; Z79.899 Other long term (current) drug therapy; Z83.3 Family history of diabetes mellitus; Z87.11 Personal history of peptic ulcer disease; Z86.19 Personal history of other infectious and parasitic diseases; Z95.810 Presence of automatic (implantable) cardiac defibrillator

== ENCOUNTER 2016-08-10 20:38 | Inpatient (IN) | payer OTHER, MEDICARE ==
[2016-08-10] MEDS ORDERED: Levalbuterol 1.25 MG/3 ML Inhal Soln UD IH PRN (23:43)
[2016-08-10] MEDS: Cefpodoxime (Vantin) 200 mg Tab PO SCH (23:45)
[2016-08-11] MEDS: Oxycodone/Acetaminophen 5/325 mg Tab PO PRN ×3 (00:09→17:58)
[2016-08-11 04:55] VITALS: BMI 25.7
[2016-08-11] MEDS: Pantoprazole 40 mg EC Tab PO SCH (05:52)
[2016-08-11] MEDS: Insulin Lispro (HUMAlog) HIGH Coverage SC SCH ×4 (07:24→21:36)
[2016-08-11] MEDS ORDERED: GlipiZIDE 10 mg SR Tab PO SCH (08:00)
[2016-08-11] MEDS: GlipiZIDE 10 mg SR Tab PO SCH ×2 (08:15→17:53)
--- NOTE | 2016-08-11 10:09 | PN ---
DATE: 08/11/2016 DATE: 08/11/2016 SUBJECTIVE: The patient has no complaints of any chest pain, no shortness of breath, no headaches. He has come to the transitional care unit for rehab. Please see the initial H and P that was done th at I did review and agree with. PHYSICAL EXAMINATION: VITAL SIGNS: Temperature is 97.2, pulse of 57. Blood pressure 126/67, respirations 18. GENERAL: The patient is comfortable, in no acute distress. HEENT: Anicteric sclerae. Moist mucosa. NECK: No JVD or adenopathy. CARDIAC: S1/S2. No murmurs. No rubs. Regular. RESPIRATORY: Clear to auscultation bilaterally. No wheezes, rales, or rhonchi. Good air entry. ABDOMEN: Bowel sounds are positive, soft, nontender, and nondistended. EXTREMITIES: No edema. Has 1+ pulses. ASSESSMENT: 1. Gout. 2. Atrial fibrillation, on Coumadin. 3. Diabetes type 2. 4. Coronary artery disease. 5. Hypertension. 6. Smoking. 7. Peripheral neuropathy. 8. Gait dysfunction. PLAN: The patient is currently comfortable. His last INR was therapeutic at 2.3. The patient is on prednisone at this point. He is on Protonix. He is going to continue with Vantin for antibiotics. The patient is on colchicine. He is clinically improving. He is going to need aggressive physical and occupational therapy. Kike Holt MD cc: [id number] TT: 08/11/2016 10:08:15 Confirmation # [id number] Dictation # [id number] jn
[2016-08-11] MEDS: Cefpodoxime (Vantin) 200 mg Tab PO SCH ×2 (10:28→21:36)
[2016-08-11] MEDS: diltiaZEM 180 mg/24 Hours CD Cap PO SCH (10:29)
[2016-08-11] MEDS: Digoxin 125 mcg (0.125 mg) Tab PO SCH (14:10)
[2016-08-12] MEDS: Pantoprazole 40 mg EC Tab PO SCH (05:29)
[2016-08-12] MEDS: Oxycodone/Acetaminophen 5/325 mg Tab PO PRN ×2 (05:29→19:58)
[2016-08-12] MEDS: Insulin Lispro (HUMAlog) HIGH Coverage SC SCH ×4 (06:32→22:36)
[2016-08-12] MEDS: GlipiZIDE 10 mg SR Tab PO SCH ×2 (08:04→17:35)
[2016-08-12] MEDS: diltiaZEM 180 mg/24 Hours CD Cap PO SCH (09:27)
[2016-08-12] MEDS: Cefpodoxime (Vantin) 200 mg Tab PO SCH ×2 (09:29→21:38)
[2016-08-12] MEDS: Digoxin 125 mcg (0.125 mg) Tab PO SCH (13:25)
[2016-08-13] MEDS: Oxycodone/Acetaminophen 5/325 mg Tab PO PRN (00:05)
[2016-08-13] MEDS: Pantoprazole 40 mg EC Tab PO SCH (06:15)
[2016-08-13] MEDS: Insulin Lispro (HUMAlog) HIGH Coverage SC SCH ×4 (06:45→23:43)
[2016-08-13] MEDS: GlipiZIDE 10 mg SR Tab PO SCH ×2 (08:09→17:27)
[2016-08-13] MEDS: diltiaZEM 180 mg/24 Hours CD Cap PO SCH (10:01)
[2016-08-13] MEDS: Cefpodoxime (Vantin) 200 mg Tab PO SCH ×2 (10:12→21:02)
--- NOTE | 2016-08-13 11:51 | PN ---
DATE: 08/13/2016 DATE: 08/13/2016 SUBJECTIVE: The patient has no complaints of any chest pain, no shortness of breath, no headaches or dizziness. PHYSICAL EXAMINATION: VITAL SIGNS: Temperature is 97.8, pulse of 69. Blood pressure is 127/69, respirations 18. GENERAL: The patient is comfortable, in no acute distress. HEENT: Anicteric sclerae. Moist mucosa. NECK: No JVD or adenopathy. CARDIAC: S1/S2. No murmurs. No rubs. Regular. RESPIRATORY: Clear to auscultation bilaterally. No wheezes, rales, or rhonchi. Good air entry. ABDOMEN: Bowel sounds are positive, soft, nontender, and nondistended. EXTREMITIES: No edema. Has 1+ pulses. ASSESSMENT: 1. Atrial fibrillation, on Coumadin. 2. Diabetes type 2. 3. Coronary artery disease. 4. Hypertension. 5. Smoking. 6. Peripheral neuropathy. 7. Gait dysfunction. PLAN: The patient is currently on glipizide. He is on Coumadin for his atrial fibrillation. He is on colchicine. The patient is on digoxin. This will be continued. I have decreased his prednisone. He is going to be on Protonix. He is on Xopenex. He is on a heart-healthy diet. He is feeling we ll. Kike Holt MD cc: [id number] TT: 08/13/2016 11:50:40 Confirmation # [id number] Dictation # [id number] michelle
[2016-08-13] MEDS: Digoxin 125 mcg (0.125 mg) Tab PO SCH (14:12)
[2016-08-14] MEDS: Pantoprazole 40 mg EC Tab PO SCH (05:46)
[2016-08-14] MEDS: Insulin Lispro (HUMAlog) HIGH Coverage SC SCH ×4 (07:31→21:24)
[2016-08-14] MEDS: GlipiZIDE 10 mg SR Tab PO SCH ×2 (08:28→17:54)
[2016-08-14] MEDS: diltiaZEM 180 mg/24 Hours CD Cap PO SCH (09:38)
[2016-08-14] MEDS: Cefpodoxime (Vantin) 200 mg Tab PO SCH ×2 (09:42→21:18)
[2016-08-14 12:22] LABS: ADD MANUAL DIFF? NO
[2016-08-14 12:24] LABS: EOS # 0.1 (0.0-0.7); GRAN # 4.95 (1.4-6.5); GRAN % 78.4 % (50.0-68.0); HEMATOCRIT 40.9 % (42.0-52.0); LYMPH # 0.8 (1.2-3.4); LYMPH % 12.7 % (22.0-35.0); MEAN CELL VOLUME 74.9 fL (80.0-105.0); MEAN CORPUSCULAR HEMOGLOBIN 24.2 pg (25.0-35.0); MEAN CORPUSCULAR HGB CONC 32.3 g/dl (31.0-37.0); MEAN PLATELET VOLUME 10.3 fl (7.0-11.0); MONO # 0.5 (0.1-0.6); MONO % 7.9 % (1.0-6.0); PLATELET COUNT 204 10^3/uL (120.0-450.0); WHITE BLOOD COUNT 6.3 10^3/ul (4.5-11.0)
[2016-08-14 12:36] LABS: BLOOD UREA NITROGEN 33 mg/dL (7-21); CALCIUM 9.6 mg/dL (8.4-10.5); CARBON DIOXIDE 32 mmol/L (21-33); CHLORIDE 96 mmol/L (98-107); GFR AFRICAN-AMERICAN > 60; GLUCOSE,RANDOM 196 mg/dL (70-110); POTASSIUM 4.5 mmol/L (3.6-5.0); SODIUM 136 mmol/L (132-148)
[2016-08-14 12:54] LABS: IRON 88 ug/dL (45-180)
[2016-08-14] MEDS: Digoxin 125 mcg (0.125 mg) Tab PO SCH (13:41)
[2016-08-14] MEDS: Oxycodone/Acetaminophen 5/325 mg Tab PO PRN (21:17)
[2016-08-15] MEDS: Pantoprazole 40 mg EC Tab PO SCH (05:46)
[2016-08-15] MEDS: Insulin Lispro (HUMAlog) HIGH Coverage SC SCH ×4 (06:32→22:00)
[2016-08-15] MEDS: GlipiZIDE 10 mg SR Tab PO SCH ×2 (08:33→17:40)
[2016-08-15] MEDS: diltiaZEM 180 mg/24 Hours CD Cap PO SCH (11:00)
[2016-08-15] MEDS: Cefpodoxime (Vantin) 200 mg Tab PO SCH ×2 (11:01→21:27)
[2016-08-15] MEDS: Digoxin 125 mcg (0.125 mg) Tab PO SCH (14:15)
[2016-08-15 14:19] VITALS: PULSE 61
[2016-08-15] MEDS: Oxycodone/Acetaminophen 5/325 mg Tab PO PRN (21:38)
[2016-08-16] MEDS: Pantoprazole 40 mg EC Tab PO SCH (05:10)
[2016-08-16 06:23] VITALS: RESP 18; TEMP 97.5
[2016-08-16] MEDS: Insulin Lispro (HUMAlog) HIGH Coverage SC SCH ×2 (06:46→12:01)
[2016-08-16] MEDS: GlipiZIDE 10 mg SR Tab PO SCH (08:12)
[2016-08-16] MEDS: diltiaZEM 180 mg/24 Hours CD Cap PO SCH (09:57)
[2016-08-16] MEDS: Cefpodoxime (Vantin) 200 mg Tab PO SCH (09:58)
[2016-08-16 10:35] VITALS: BP 114/70; PULSE 54
[2016-08-16 10:44] VITALS: O2SAT 100
--- NOTE | 2016-08-16 11:03 | PN ---
DATE: 08/15/2016 SUBJECTIVE: He is comfortable in bed, no acute distress. No chest pain, no palpitations. Ambulating without any discomfort, participating in physical therapy. Appetite good. No joint pain. REVIEW OF SYSTEMS: As per HPI. Rest of 12-point reviewed and negative. PHYSICAL EXAMINATION: GENERAL: Comfortable in bed, no acute distress. VITAL SIGNS: Temperature 98.7, heart rate 80 per minute, blood pressure 130/80 , respiratory rate 18 per minute. HEENT: Normal. CHEST: Air entry present, equal bilateral. No added sound. CARDIOVASCULAR: Within normal limits. ABDOMEN: Soft, nontender, no hepatosplenomegaly. EXTREMITIES: No edema. CENTRAL NERVOUS SYSTEM: Alert, oriented x 3. No focal sensorimotor deficit. SPINE: Nontender. MEDICATIONS: Reviewed. LABORATORIES: Reviewed. ASSESSMENT: 1. Anemia. 2. Osteoarthritis. 3. Atrial fibrillation, on Coumadin. 4. Coronary artery disease. 5. Smoking. 6. Peripheral neuropathy. 7. Gait dysfunction. PLAN: Currently participating in physical therapy. We will continue all the current medications. He is requesting to be discharged tomorrow. We will consider discharge tomorrow. He has a home care nurse already set up to come for Wednesday. Discussed with the staff nurse. Discussed with the patient. Janey Moya MD cc: [id number] TT: 08/16/2016 11:02:19 Confirmation # [id number] Dictation # [id number] en MTDD
--- NOTE | 2016-08-16 23:02 | CP.PCM.DIS ---
Provider - Provider Date of Admission: 08/10/16 20:38 Attending physician: Kike Holt MD Primary care physician: Palmer Whalen MD Time Spent in preparation of Discharge (in minutes): 55 Hospital Course - Lab Results Lab Results: Most Recent Lab Values WBC 6.3 10^3/ul (4.5-11.0) D 08/14/16 12:10 RBC 5.46 10^6/uL (3.5-6.1) 08/14/16 12:10 Hgb 13.2 gm/dL (14.0-18.0) L 08/14/16 12:10 Hct 40.9 % (42.0-52.0) L 08/14/16 12:10 MCV 74.9 fL (80.0-105.0) L 08/14/16 12:10 MCH 24.2 pg (25.0-35.0) L 08/14/16 12:10 MCHC 32.3 g/dl (31.0-37.0) 08/14/16 12:10 RDW 19.0 % (11.5-14.5) H 08/14/16 12:10 Plt Count 204 10^3/uL (120.0-450.0) 08/14/16 12:10 MPV 10.3 fl (7.0-11.0) 08/14/16 12:10 Gran % 78.4 % (50.0-68.0) H 08/14/16 12:10 Lymph % (Auto) 12.7 % (22.0-35.0) L 08/14/16 12:10 Bailey % (Auto) 7.9 % (1.0-6.0) H 08/14/16 12:10 Eos % (Auto) 1.0 % (1.5-5.0) L 08/14/16 12:10 Baso % (Auto) 0.0 % (0.0-3.0) 08/14/16 12:10 Gran # 4.95 (1.4-6.5) 08/14/16 12:10 Lymph # 0.8 (1.2-3.4) L 08/14/16 12:10 Bailey # 0.5 (0.1-0.6) 08/14/16 12:10 Eos # 0.1 (0.0-0.7) 08/14/16 12:10 Baso # 0.00 K/mm3 (0.0-2.0) 08/14/16 12:10 Sodium 136 mmol/L (132-148) 08/14/16 12:10 Potassium 4.5 mmol/L (3.6-5.0) 08/14/16 12:10 Chloride 96 mmol/L (98-107) L 08/14/16 12:10 Carbon Dioxide 32 mmol/L (21-33) 08/14/16 12:10 Anion Gap 13 (10-20) 08/14/16 12:10 BUN 33 mg/dL (7-21) H 08/14/16 12:10 Creatinine 1.0 mg/dL (0.5-1.4) 08/14/16 12:10 Est GFR ( Amer) > 60 08/14/16 12:10 Est GFR (Non-Af Amer) > 60 08/14/16 12:10 POC Glucose (mg/dL) 279 mg/dL (65-110) H 08/16/16 11:11 Random Glucose 196 mg/dL (70-110) H 08/14/16 12:10 Calcium 9.6 mg/dL (8.4-10.5) 08/14/16 12:10 Iron 88 ug/dL (45-180) 08/14/16 12:10 TIBC 411 ug/dL (261-462) 08/14/16 12:10 % Saturation 21 % (20-55) 08/14/16 12:10 Ferritin 47.5 ng/mL 08/14/16 12:10 Vitamin B12 > 1000 pg/mL (239-931) H 08/14/16 12:10 - Hospital Course Hospital Course: DATE: 08/16/2016 SUBJECTIVE: He is comfortable in bed, no acute distress. No chest pain, no palpitations. Ambulating without any discomfort, participating in physical therapy. Appetite good. No joint pain. ambulating without support. REVIEW OF SYSTEMS: As per HPI. Rest of 12-point reviewed and negative. PHYSICAL EXAMINATION: GENERAL: Comfortable in bed, no acute distress. VITAL SIGNS: reviewed. HEENT: Normal. CHEST: Air entry present, equal bilateral. No added sound. CARDIOVASCULAR: Within normal limits. ABDOMEN: Soft, nontender, no hepatosplenomegaly. EXTREMITIES: No edema. CENTRAL NERVOUS SYSTEM: Alert, oriented x 3. No focal sensorimotor deficit. SPINE: Nontender. MEDICATIONS: Reviewed. LABORATORIES: Reviewed. ASSESSMENT: 1. Anemia. 2. Osteoarthritis. 3. Atrial fibrillation, on Coumadin. 4. Coronary artery disease. 5. Smoking. 6. Peripheral neuropathy. 7. Gait dysfunction. PLAN: DC home today. Pt. has home care nurse set up every wednesday. Foloow up with Dr. Holt in 1 week. condition on discharge : stable. Janey Moya MD Discharge Plan - Follow Up Plan Condition: GOOD Disposition: HOME/ ROUTINE Instructions: How to Stop Smoking (GEN), Chronic Pain (DC), Chronic Pain (GEN) Referrals: Palmer Whalen MD [Primary Care Provider] -
--- NOTE | 2016-08-17 08:38 | PN ---
DATE: 08/14/2016 HISTORY OF PRESENT ILLNESS: The patient is comfortable in bed, no acute distress. He is participati ng in physical therapy. He has history of osteoarthritis and gait dysfunction. No complaints today. Pain is controlled with current medications. REVIEW OF SYSTEMS: As per HPI. Rest of 12-point reviewed and negative. PHYSICAL EXAMINATION: GENERAL: Comfortable in bed, no acute distress. VITAL SIGNS: Temperature 98.7, heart rate is 57 per minute, blood pressure 130/80, respiratory rate 15 per minute. HEENT: Normal. NECK: No lymphadenopathy. CHEST: Air entry present, equal bilateral. No added sound. CARDIOVASCULAR: S1, S2 normal. No murmur, no gallop. ABDOMEN: Soft, nontender, no hepatosplenomegaly. ABDOMEN: Soft, nontender, no rebound tenderness. EXTREMITIES: No edema. CENTRAL NERVOUS: Alert, oriented x 3, no focal sensorimotor deficit. SPINE: Nontender. LABORATORIES: Reviewed. MEDICATIONS: Reviewed. ASSESSMENT: Atrial fibrillation, diabetes mellitus type 2, anemia, hypertension, peripheral neuropat hy, gait dysfunction, gout. PLAN: We will continue the current medication. INR is therapeutic. Continue Coumadin. He is on pr ednisone for osteoarthritis. Will continue Vantin antibiotics. He is currently on colchicine also. Clinically improving, participating in physical therapy, asking to be discharged tomorrow. He has a home care nurse who comes on Tuesdays at home. Janey Moya MD cc: [id number] TT: 08/16/2016 10:59:10 Confirmation # [id number] Dictation # [id number] en
== END 2016-08-16 15:17 | disposition home or self-care (01) | DRG 92 ==
LOC: TRCU 20:38
PROVIDERS: ADMIT Internal Medicine Nephrology; ATTEND Internal Medicine Nephrology
PROC: F07Z9FZ Gait Training/Functional Ambulation Treatment using Assistive, Adaptive, Supportive or Protective Equipment (ICD-10-PCS; principal; 2016-08-11)
PROC: F08Z4FZ Home Management Treatment using Assistive, Adaptive, Supportive or Protective Equipment (ICD-10-PCS; 2016-08-11)
DX: R26.9 Unspecified abnormalities of gait and mobility (principal); M10.9 Gout, unspecified; I50.22 Chronic systolic (congestive) heart failure; E11.42 Type 2 diabetes mellitus with diabetic polyneuropathy; I11.0 Hypertensive heart disease with heart failure; D64.9 Anemia, unspecified; I48.91 Unspecified atrial fibrillation; Z79.01 Long term (current) use of anticoagulants; I25.10 Atherosclerotic heart disease of native coronary artery without angina pectoris; F17.210 Nicotine dependence, cigarettes, uncomplicated; M19.90 Unspecified osteoarthritis, unspecified site; Z95.5 Presence of coronary angioplasty implant and graft; Z89.421 Acquired absence of other right toe(s); Z85.028 Personal history of other malignant neoplasm of stomach; Z95.810 Presence of automatic (implantable) cardiac defibrillator

== ENCOUNTER 2016-09-07 11:45 | Observation (INO) | payer MEDICARE ==
[2016-09-07 11:46] VITALS: PULSE 61
[2016-09-07 12:19] VITALS: BMI 24.4
--- NOTE | 2016-09-07 14:11 | RAD ---
PROCEDURE: Left Hand Radiographs. HISTORY: swollen hand COMPARISON: 02/20/2015 FINDINGS: BONES: Normal. No fracture. JOINTS: Normal. No osteoarthritic changes. SOFT TISSUES: Normal. OTHER FINDINGS: None. IMPRESSION: Normal left hand radiographs.
[2016-09-07 14:27] LABS: BASO # 0.04 K/mm3 (0.0-2.0); BASO % 0.6 % (0.0-3.0); EOS % 0.4 % (1.5-5.0); GRAN # 4.93 (1.4-6.5); GRAN % 70.7 % (50.0-68.0); HEMOGLOBIN 13.3 gm/dL (14.0-18.0); LYMPH # 1.1 (1.2-3.4); LYMPH % 16.1 % (22.0-35.0); MEAN CELL VOLUME 75.5 fL (80.0-105.0); MEAN CORPUSCULAR HEMOGLOBIN 25.1 pg (25.0-35.0); MEAN CORPUSCULAR HGB CONC 33.3 g/dl (31.0-37.0); MEAN PLATELET VOLUME 10.2 fl (7.0-11.0); MONO # 0.9 (0.1-0.6); MONO % 12.2 % (1.0-6.0); PLATELET COUNT 193 10^3/uL (120.0-450.0); RED CELL DISTRIBUTION WIDTH 22.8 % (11.5-14.5)
[2016-09-07 14:40] LABS: ALB/GLOB RATIO 1.1 (1.1-1.8); ALBUMIN 4.2 g/dL (3.0-4.8); ALT/SGPT 33 U/L (7-56); AST/SGOT 38 U/L (15-59); BLOOD UREA NITROGEN 26 mg/dL (7-21); CALCIUM 9.7 mg/dL (8.4-10.5); GFR AFRICAN-AMERICAN > 60; GFR NON-AFRICAN AMERICAN > 60
[2016-09-07] MEDS ORDERED: Oxycodone/Acetaminophen 5/325 mg Tab PO STA ×2 (15:01→19:25)
[2016-09-07] MEDS ORDERED: Morphine 4 mg/ml ISec IVP STA (15:19)
--- NOTE | 2016-09-07 15:19 | ED PDOC ---
Arrival/HPI - General Chief Complaint: Finger,Hand,&Wrist Time Seen by Provider: 09/07/16 12:41 Historian: Patient - History of Present Illness Narrative History of Present Illness (Text): 09/07/16 15:20 A 70 year old male with a history of diabetes presents to the emergency department complaining of two days history of left hand pain swelling and erythema. Denies any numbness tingling or weakness. Denies any recent trauma or injury. Limited range of motion of hand. Denies any fever at home. No chest pain. No shortness of breath. No dizziness or weakness. Patient states he is unable to remove ring from left 4th finger due to the swelling. Also states he has a history of gout but hasn't had gout flare up in upper extremity. Denies any other complaints at this time. Time/Duration: Other (2 days) Symptom Onset: Sudden Symptom Course: Unchanged Activities at Onset: Rest Context: Home Past Medical History - Provider Review Nursing Documentation Reviewed: Yes - Infectious Disease Hx of Infectious Diseases: None - Tetanus Immunization Tetanus Immunization: Unknown - Cardiac Hx Cardiac Disorders: Yes - Pulmonary Hx Respiratory Disorders: No Other/Comment: ex-smoker - Neurological Hx Neurological Disorder: Yes Other/Comment: neuropathy - HEENT Hx HEENT Disorder: No Hx Blind: No Hx Cataracts: No Hx Deafness: No Hx Difficulty Chewing: No Hx Epistaxis: No Hx Glaucoma: No Hx Macular Degeneration: No - Renal Hx Renal Disorder: No - Endocrine/Metabolic Hx Diabetes Mellitus Type 2: Yes - Hematological/Oncological Hx Blood Disorders: No Hx AIDS: No Hx Anemia: No Hx Cancer: No Hx Chemotherapy: No Hx Cirrhosis: No Hx Hepatitis A: No Hx Hepatitis B: No Hx Hepatitis C: No Hx Metastasis: No Hx Shingles: No Hx Unexplained Bleeding: No - Integumentary Hx Dermatological Disorder: No Hx Basal Cell Carcinoma: No Hx Eczema: No Hx Melanoma: No Hx Psoriasis: No Hx Squamous Cell Carcinoma: No - Musculoskeletal/Rheumatological Hx Falls: Yes - Gastrointestinal Hx Gastrointestinal Disorders: Yes Hx Gastroesophageal Reflux: Yes Hx Gastrointestinal Ulcer: Yes Other/Comment: stomach cancer 1998 - Genitourinary/Gynecological Hx Reproductive Disorders: No - Psychiatric Hx Psychophysiologic Disorder: No Hx Anxiety: No Hx Bipolar Disorder: No Hx Depression: No Hx Emotional Abuse: No Hx Hallucinations: No Hx Panic Disorder: No Hx Post Traumatic Stress Disorder: No Hx Psychosis: No Hx Physical Abuse: No Hx Schizophrenia: No Hx Sexual Abuse: No Hx Substance Use: No Other/Comment: ETOH - Surgical History Hx Amputation: Yes (metatarsal right foot amputation) Hx Coronary Stent: Yes - Anesthesia Hx Anesthesia: Yes Hx Anesthesia Reactions: No Hx Malignant Hyperthermia: No - Suicidal Assessment Feels Threatened In Home Enviroment: No Family/Social History - Physician Review Nursing Documentation Reviewed: Yes Family/Social History: No Known Family HX Smoking Status: Former Smoker Hx Alcohol Use: Yes (former) Hx Substance Use: No Hx Substance Use Treatment: No Allergies/Home Meds Allergies/Adverse Reactions: Allergies No Known Allergies Allergy (Verified 08/06/16 18:59) Home Medications: Home Meds Medication Instructions Recorded Confirmed Digoxin 125 mcg PO DAILY 02/24/12 09/07/16 Glipizide [Glucotrol Xl] 10 mg PO BID 02/24/12 09/07/16 Carvedilol [Coreg] 25 mg PO BID 11/08/15 09/07/16 Famotidine [Pepcid] 20 mg PO BID 11/08/15 09/07/16 Gabapentin [Neurontin] 600 mg PO TID 11/08/15 09/07/16 [id number] CD [Cardizem CD] 180 mg PO DAILY 11/08/15 09/07/16 Aspirin [Ecotrin] 81 mg PO DAILY 11/12/15 09/07/16 Review of Systems - Physician Review All systems were reviewed & negative as marked: Yes - Review of Systems Constitutional: absent: Fevers, Other (weakness) Respiratory: absent: SOB Cardiovascular: absent: Chest Pain Skin: Other (left hand pain and swelling) Neurological: absent: Dizziness Physical Exam Vital Signs Reviewed: Yes Vital Signs Temp Pulse Resp BP Pulse Ox 09/07/16 15:23 99.3 F 76 16 141/67 98 09/07/16 12:21 98.7 F 86 18 124/70 97 Temperature: Afebrile Blood Pressure: Normal Pulse: Regular Respiratory Rate: Normal Appearance: Positive for: Well-Appearing, Non-Toxic, Comfortable Pain Distress: None Mental Status: Positive for: Alert and Oriented X 3 - Systems Exam Head: Present: Atraumatic, Normocephalic Extroacular Muscles: Present: EOMI Conjunctiva: Present: Normal Respiratory/Chest: Present: Clear to Auscultation, Good Air Exchange. No: Respiratory Distress, Accessory Muscle Use Cardiovascular: Present: Regular Rate and Rhythm, Normal S1, S2. No: Murmurs Upper Extremity: Present: NORMAL PULSES, Tenderness (+ ttp over entire hand. ), Swelling (significant swellingon dorsal aspect of hand. ), Erythema (along dorsal aspect of hand across 2nd 3rd and 4th metapcarpal heads and extends along dorsum of hand into wrist and distal forearm. ), Neurovascularly Intact, Other (L hand edematous. ring stuck on 4th finger of L hand. Limited flexion and extension of all four fingers.). No: Cyanosis, Normal ROM (limited rom of hand with pain) Lower Extremity: Present: Normal Inspection. No: Edema Neurological: Present: GCS=15, Speech Normal Skin: Present: Warm, Dry, Normal Color. No: Rashes Psychiatric: Present: Alert, Oriented x 3, Normal Insight, Normal Concentration Medical Decision Making ED Course and Treatment: 09/07/16 15:15 Impression- A 70 year old male with left hand pain and swelling and erythema. diff diagnosis- r/o fracture. Gout vs. cellulitis past visit- Patient last reported to the emergency department on 08/06/16 for evaluation of left knee pain and right wrist pain. Plan- -- Radiology of left hand: no fracture -- labs cbc; wnl cmp; wnl -- morphine for pain. 09/07/16 14:15 Left Hand Radiographs Creator : Michoacano Sanabria MD IMPRESSION: Normal left hand radiographs. Patient with a ring on the left fourth finger with swelling. I have advised the patient that the bleeding is very tight on the finger and if the patient develops any further swelling it could cut off circulation to the finger. Patient states he does not want to have the ring cut off of his finger. He states he understands the risk of significant swelling to the finger and the risk that the finger could swell and the ring could cut the circulation to the finger. blood cultures pending zosyn and vanco started iv. 09/07/16 15:[address] Holt who agrees for patient to be admitted to Med Surg on observation. impression; cellulitis, hand admit observational status to med/surg. - Lab Interpretations Lab Results: 09/07/16 13:38 09/07/16 13:38 Lab Results 09/07/16 13:38: PT 13.3 H, INR 1.23 H, APTT 33.4 H 09/07/16 13:38: WBC 7.0, RBC 5.30, Hgb 13.3 L, Hct 40.0 L, MCV 75.5 L, MCH 25.1 , MCHC 33.3, RDW 22.8 H, Plt Count 193, MPV 10.2, Gran % 70.7 H, Lymph % (Auto) 16.1 L, Bennett % (Auto) 12.2 H, Eos % (Auto) 0.4 L, Baso % (Auto) 0.6, Gran # 4.93 , Lymph # 1.1 L, Bennett # 0.9 H, Eos # 0.0, Baso # 0.04 09/07/16 13:38: Sodium 137, Potassium 4.2, Chloride 96 L, Carbon Dioxide 31, Anion Gap 14, BUN 26 H, Creatinine 1.1, Est GFR ( Amer) > 60, Est GFR ( Non-Af Amer) > 60, Random Glucose 132 H, Calcium 9.7, Total Bilirubin 1.8 H, AST 38, ALT 33, Alkaline Phosphatase 77, Total Protein 8.1, Albumin 4.2, Globulin 4.0, Albumin/Globulin Ratio 1.1 I have reviewed the lab results: Yes - RAD Interpretation Radiology Orders: 09/07/16 13:26 HAND LEFT 3 VIEWS ROUTINE [RAD] Stat - Medication Orders Current Medication Orders: Vancomycin HCl (Vancomycin 1gm) 1 gm in 250 mls @ 167 mls/hr IVPB STAT STA PRN Reason: Protocol Stop: 09/07/16 18:30 Discontinued Medications Piperacillin Sod/Tazobactam Sod (Zosyn 3.375 In Ns 100ml) 100 mls @ 200 mls/hr IVPB STAT STA PRN Reason: Protocol Stop: 09/07/16 17:14 Last Admin: 09/07/16 17:24 Dose: 200 mls/hr Morphine Sulfate (Morphine) 4 mg IVP STAT STA Stop: 09/07/16 15:20 Last Admin: 09/07/16 15:33 Dose: 4 mg Disposition/Present on Arrival - Present on Arrival Any Indicators Present on Arrival: No History of DVT/PE: No History of Uncontrolled Diabetes: No Urinary Catheter: No History of Decub. Ulcer: No History Surgical Site Infection Following: None - Disposition Have Diagnosis and Disposition been Completed?: Yes Diagnosis: Cellulitis of hand Disposition: HOSPITALIZED Disposition Time: 15:08 Patient Plan: Admission Condition: FAIR Discharge Instructions (ExitCare): Cellulitis (ED) Referrals: PCP,NO [Primary Care Provider] - Follow up with primary
[2016-09-07 15:40] LABS: INR 1.23 (0.93-1.08); PARTIAL THROMBOPLASTIN TIME 33.4 Seconds (23.7-30.8); PROTHROMBIN TIME 13.3 Seconds (9.9-11.8)
[2016-09-07] MEDS ORDERED: Piperacillin/Tazobact 3.375 gm 100 ML IVPB STA (16:45)
[2016-09-07] MEDS ORDERED: Vancomycin 1gm in NS 250ml 1 GM/250 ML BAG IVPB STA (17:01)
[2016-09-07] MEDS ORDERED: Morphine 4 mg/ml ISec IVP PRN (22:34)
[2016-09-07] MEDS ORDERED: Pneumococcal 23-Valent Vaccine IM ONE (23:36)
[2016-09-08] MEDS ORDERED: Bupivacaine 0.5% Inj(30mL) IJ ONE (07:28)
[2016-09-08] MEDS ORDERED: MethylPREDNISolone Depo 40 mg/ml Inj IM ONE (07:28)
[2016-09-08] MEDS ORDERED: Insulin Reg-LOW-Coverage SC SCH (07:30)
[2016-09-08 08:38] VITALS: BP 119/63; PULSE 74; RESP 20; TEMP 99.5; O2SAT 95
[2016-09-08] MEDS ORDERED: GlipiZIDE 10 mg SR Tab PO SCH (10:00)
[2016-09-08] MEDS ORDERED: diltiaZEM 180 mg/24 Hours CD Cap PO SCH (10:00)
[2016-09-08] MEDS ORDERED: Digoxin 125 mcg (0.125 mg) Tab PO SCH (14:00)
--- NOTE | 2016-09-08 19:23 | CON ---
The patient was seen for a complaint of swelling and erythema of the left wrist with effusion of the left wrist by clinical palpation. His x-ray was within normal limits. He has a past history of inflammatory arthritis, suspect gouty arthritis, it does not look like an infection process as there is no white count elevation, it has just been there only for less than 2 days, so I do feel some effusion of the radiocarpal joint, so we numbed the skin up and tried to aspirate, there was no fluid to be removed, so I injected with Depo-Medrol and Marcaine *------* inflammatory arthritis, he should feel better. He said he was already worked up for Lyme disease, which was negative, so I will follow him here. Hopefully, he will feel better with the Depo-Medrol injection to the left wrist at swollen and tender radiocarpal joint. I will follow him in the hospital setting. Michoacano Trinh DO
--- NOTE | 2016-09-08 20:35 | HP ---
DATE OF SERVICE: 09/08/2016 HISTORY OF PRESENT ILLNESS: This is a 70-year-old male who came into the hospital with complaints of left hand pain, swelling, erythema. The patient states that it has improved, they started about 3 days ago. He is complaining of 5/10 pain. He says he is not able to remove the ring from his finger. He does have a history of gout. He denies any trauma, no insect bites, no injures to the hand. He has no fevers, no chills, no nausea, no vomiting, no abdominal pain, no back pain, no dysuria, no frequency, no nocturia. All other review of symptoms are within normal limits except what is mentioned. ALLERGIES: No known drug allergies. HOME MEDICATIONS: Digoxin, glipizide, Coreg, Pepcid, Neurontin, Cardizem and aspirin. PAST MEDICAL HISTORY: 1. 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 2. Coronary artery disease with stent. 3. AFib. 4. Defibrillator. 5. Hypertension. 6. Diabetes type 2. 7. Stomach cancer in 1997. 8. Peripheral neuropathy. PAST SURGICAL HISTORY: Stomach surgery in 1997. SOCIAL HISTORY: He says he smokes 1 pack per day for 50 years. He drank alcohol, but quit in 2016. He denies drug use. 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 FAMILY HISTORY: Father at 72 of diabetes mellitus. Mother of an old age at 94. PHYSICAL EXAMINATION VITAL SIGNS: Temperature is 99.1, pulse is 79, blood pressure is 123/74, respirations 18. Height is 5 feet 11 inches, weight is 175 pounds. BMI is 24.4. GENERAL: The patient is lying in bed flat, comfortable, in no acute distress. HEENT: Atraumatic, normocephalic. Conjunctivae are pink. Throat is clear and mouth is moist. Oropharynx is benign. No oral lesions. Eyes: EOMI, PERRLA. NECK: Supple. No JVD. No thyromegaly or adenopathy, no bruits. HEART: S1, S2 are regular. No murmurs, rubs or gallops. LUNGS: Clear to auscultation bilaterally. No wheezes, rales or rhonchi. ABDOMEN: Soft, nontender, nondistended. No rebound. No guarding. EXTREMITIES: No cyanosis, clubbing. In the left hand, there is mild edema, but improved significantly. There is very mild erythema. Apparently, the patient says that it has improved significantly. NEUROLOGICAL: No facial asymmetry. Tongue is midline. No uvular deviation. Power is 5/5 in upper extremity and lower extremity and sensation is normal in the upper extremity and lower extremity. PSYCHIATRIC: Alert, awake and oriented x3. No anxiety, depression. Good insight, normal affect. GENITOURINARY: No CVA tenderness. VASCULAR: There are 2+ pulses, carotid and pedal pulses. SKIN: No erythema or nodules. SPINE: Normal curvature. No lymphadenopathy. No anterior or posterior cervical adenopathy. No inguinal adenopathy. LABORATORY DATA: White count of 7.0, hemoglobin is 13.3, platelet count is 193. INR is 1.2. Sodium is 137, potassium is 4.2, creatinine is 1.1. IMAGING: X-ray of the left hand is normal. ASSESSMENT: 1. Acute left wrist gout attack. 2. Smoking. 3. Atrial fibrillation, on Coumadin. 4. Diabetes type 2. 5. Coronary artery disease. 6. Hypertension. 7. Neuropathy. PLAN: The patient *------* comfortable, was seen by *------*. The patient had a needle to aspirate fluid, but not much was aspirated. The patient was started on colchicine. The patient is on carvedilol. He is going to continue with Coumadin with higher dose because of he being subtherapeutic. The patient is on aspirin. He is going to continue with digoxin. He is on morphine for pain. He is on gabapentin for neuropathy. I placed him on a nicotine patch. He will be discharged home today. I did inform Dr. Whalen regarding followup. Kike Holt MD
--- NOTE | 2016-09-09 00:27 | CON ---
DATE: 09/08/2016 LOCATION: The patient was seen early this morning in room 371, bed 1. CHIEF COMPLAINT: Left hand pain from several days. HISTORY OF PRESENT ILLNESS: This is a 70-year-old male with history of gout, hypertension, diabetes, coronary artery disease, peptic ulcer disease, and atrial fibrillation, who is admitted with a left hand pain from several days. He denies any fevers , any chills, any nausea or vomiting. No chest pain. He denies any trauma. No abdominal pain, diarrhea, or constipation. PAST MEDICAL HISTORY: Significant for gout, diabetes, hypertension, coronary artery disease, peptic ulcer disease, and atrial fibrillation. PAST SURGICAL HISTORY: Significant for coronary artery bypass graft. ALLERGIES: The patient has no known allergies. MEDICATIONS: Reviewed. PHYSICAL EXAMINATION VITAL SIGNS: Temperature is 99, blood pressure is 119/60, respiratory rate of 20, heart rate of 74. HEENT: Unremarkable. NECK: Supple. LUNGS: Decreased breath sounds. HEART: Normal S1 and S2. ABDOMEN: Soft and nontender. No rebound or guarding. EXTREMITIES: Examination of the left hand is swollen. No erythema. Tender to touch. LABORATORY DATA: Reveals a white count of 7000, hemoglobin of 13, MCV is 75, platelets of 193, differential is noted, the coagulation is reviewed. BUN of 26, creatinine of 1.1. Emergency room chart is reviewed. X-ray of the hand is also reviewed to be negative. 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 Nathen Long MD
== END 2016-09-08 12:12 | disposition home or self-care (01) ==
LOC: ED 11:45 → ERH 17:45 → 3RSO 21:37
PROVIDERS: ADMIT Internal Medicine Nephrology; ATTEND Internal Medicine Nephrology
DX: L03.114 Cellulitis of left upper limb (principal); I10 Essential (primary) hypertension; E11.9 Type 2 diabetes mellitus without complications; I25.10 Atherosclerotic heart disease of native coronary artery without angina pectoris; I48.91 Unspecified atrial fibrillation
CPT/HCPCS: 73130; 80053; 82948; 85025; 85610; 85730; 87040; 96374; 99285; G0378; J2270; J2543

== ENCOUNTER 2017-02-16 16:15 | Inpatient (IN) | payer MEDICARE ==
[2017-02-16 16:15] VITALS: BMI 24.4
[2017-02-16] MEDS ORDERED: Levalbuterol 1.25 MG/3 ML Inhal Soln UD IH STA (17:59)
--- NOTE | 2017-02-16 18:05 | ED PDOC ---
Arrival/HPI - General Chief Complaint: Lower Extremity Problem/Injury Time Seen by Provider: 02/16/17 17:21 Historian: Patient - History of Present Illness Narrative History of Present Illness (Text): 02/16/17 18:00 71yr old male presents today with worsening SOB and increased swelling to the bilateral lower legs. pt now with a 3 day history of swelling and pain to the right arm. pt c/o increased fatigue and dyspnea on exertion. Patient denies chest pain. Denies fevers or chills. Patient states he's noticed decreased urination in the morning. Patient denies any recent trauma or injury to the right upper arm but states he's had worsening pain and increasing swelling. Patient states the pain started in the upper arm and now spreading into the forearm with swelling from the forearm into the hand. pt states he has been using nebulizer for SOB recently. no other complaints. pt states he is taking his coumadin and other medications as prescribed. Time/Duration: > week Symptom Onset: Gradual Past Medical History - Provider Review Nursing Documentation Reviewed: Yes - Travel History Have you recently traveled outside [place] w/in the past 3 mons?: No - Infectious Disease Hx of Infectious Diseases: None - Tetanus Immunization Tetanus Immunization: Unknown - Cardiac Hx Cardiac Disorders: Yes (mi) Hx Cardiac Arrhythmia: Yes (afib) Hx Congestive Heart Failure: Yes Hx Hypertension: Yes Hx Internal Defibrillator: Yes Hx Peripheral Edema: Yes Other/Comment: multiple cardiaC catherizations stents x 4 last 2014, DEFIFRILLATOR - Pulmonary Hx Respiratory Disorders: Yes Other/Comment: pt stated "I smoke 1 ppd" - Neurological Hx Neurological Disorder: Yes Other/Comment: neuropathy - HEENT Hx HEENT Disorder: Yes (eyeglasses) Hx Blind: No Hx Cataracts: No Hx Deafness: No Hx Difficulty Chewing: No Hx Epistaxis: No Hx Glaucoma: No Hx Macular Degeneration: No - Renal Hx Renal Disorder: No - Endocrine/Metabolic Hx Diabetes Mellitus Type 2: Yes - Hematological/Oncological Hx Blood Disorders: No Hx AIDS: No Hx Anemia: No Hx Cancer: Yes (stomach ca 1997) Hx Chemotherapy: No Hx Cirrhosis: No Hx Hepatitis A: No Hx Hepatitis B: No Hx Hepatitis C: No Hx Metastasis: No Hx Shingles: No Hx Unexplained Bleeding: No - Integumentary Hx Dermatological Disorder: No - Musculoskeletal/Rheumatological Hx Musculoskeletal Disorders: Yes Hx Falls: Yes (past) Hx Unsteady Gait: Yes - Gastrointestinal Hx Gastrointestinal Disorders: Yes Hx Gastroesophageal Reflux: Yes Hx Gastrointestinal Ulcer: Yes Other/Comment: stomach cancer 1997 - Genitourinary/Gynecological Hx Genitourinary Disorders: No Hx Hematuria: No Hx Incontinence: No Hx Prostate Problems: No Hx Sexually Transmitted Diseases: No Hx Urinary Tract Infection: No - Psychiatric Hx Psychophysiologic Disorder: No Hx Anxiety: No Hx Bipolar Disorder: No Hx Depression: No Hx Emotional Abuse: No Hx Hallucinations: No Hx Panic Disorder: No Hx Post Traumatic Stress Disorder: No Hx Psychosis: No Hx Physical Abuse: No Hx Schizophrenia: No Hx Sexual Abuse: No Hx Substance Use: No - Surgical History Hx Amputation: Yes (metatarsal right foot amputation) Hx Cardiac Catheterization: Yes Hx Coronary Stent: Yes Other/Comment: TRAUMATIC AMPUTEE R TOES - Anesthesia Hx Anesthesia: Yes - Suicidal Assessment Feels Threatened In Home Enviroment: No Family/Social History - Physician Review Nursing Documentation Reviewed: Yes Family/Social History: Unknown Family HX Smoking Status: Heavy Smoker > 10 Cigarettes Daily Hx Alcohol Use: Yes (quit) Hx Substance Use: No Hx Substance Use Treatment: No Allergies/Home Meds Allergies/Adverse Reactions: Allergies No Known Allergies Allergy (Verified 02/16/17 16:28) Home Medications: Home Meds Medication Instructions Recorded Confirmed Digoxin 125 mcg PO DAILY 02/24/12 02/16/17 Glipizide [Glucotrol Xl] 10 mg PO BID 02/24/12 02/16/17 Carvedilol [Coreg] 25 mg PO BID 11/08/15 02/16/17 Famotidine [Pepcid] 20 mg PO BID 11/08/15 02/16/17 Gabapentin [Neurontin] 600 mg PO TID 11/08/15 02/16/17 [id number] CD [Cardizem CD] 180 mg PO DAILY 11/08/15 02/16/17 Aspirin [Ecotrin] 81 mg PO DAILY 11/12/15 02/16/17 Warfarin [Coumadin] 2.5 mg PO 1800 09/07/16 02/16/17 Acarbose [Precose] 100 mg PO TID 02/16/17 02/16/17 Ergocalciferol (Vitamin D2) 2,000 mg PO BID 02/16/17 02/16/17 [Vitamin D2] Flaxseed Oil [Flaxseed] 2,000 mg PO BID 02/16/17 02/16/17 Hydrocodone/Acetaminophen 1 tab PO PRN PRN 02/16/17 02/16/17 [Hydrocodone-Acetamin 2.5-325] Levomefolate/B6/B12/Algal Oil 1 cap PO DAILY 02/16/17 02/16/17 [Metanx Capsule] [id number] Ethyl Esters [OMEGA 3] 2,000 mg PO BID 02/16/17 02/16/17 Pravastatin Sodium [Pravachol] 40 mg PO DAILY 02/16/17 02/16/17 Vitamin E Acetate [Vitamin E] 400 mg PO BID 02/16/17 02/16/17 Review of Systems - Review of Systems Constitutional: Fatigue. absent: Fevers Respiratory: SOB. absent: Cough Cardiovascular: absent: Chest Pain, Palpitations Gastrointestinal: absent: Abdominal Pain, Nausea, Vomiting Musculoskeletal: Arthralgias, Other (swelling) Skin: absent: Rash, Pruritis Neurological: absent: Headache, Dizziness Psychiatric: absent: Anxiety, Depression, Suicidal Ideation Physical Exam Vital Signs Reviewed: Yes Vital Signs Temp Pulse Resp BP Pulse Ox 02/16/17 19:52 123/61 02/16/17 19:10 60 10 L 114/57 L 96 02/16/17 18:40 97.8 F 58 L 16 115/65 90 L 02/16/17 16:39 97.7 F 60 17 119/77 87 L Temperature: Afebrile Blood Pressure: Normal Pulse: Regular Respiratory Rate: Normal Appearance: Positive for: Well-Appearing, Non-Toxic, Comfortable Pain Distress: None Mental Status: Positive for: Alert and Oriented X 3 - Systems Exam Head: Present: Atraumatic Mouth: Present: Moist Mucous Membranes Neck: Present: Normal Range of Motion Respiratory/Chest: Present: Wheezes, Rales. No: Clear to Auscultation, Rhonchi , Tachypneic Cardiovascular: Present: Regular Rate and Rhythm. No: Tachycardic Abdomen: No: Tenderness, Distention, Rebound, Guarding Back: Present: Normal Inspection Upper Extremity: Present: Edema, Normal ROM, NORMAL PULSES, Tenderness (right arm; + edema from elbow distally to hand; no erythema; no warmth. ), Swelling, Neurovascularly Intact, Capillary Refill < 2s. No: Erythema Lower Extremity: Present: Edema, Normal ROM, Swelling (+ bilateral pitting edema ; right foot amputation noted without erythema or tenderness. ), Capillary Refill < 2 s. No: CALF TENDERNESS, Tenderness, Erythema Neurological: Present: GCS=15, Speech Normal Skin: Present: Warm, Dry, Normal Color. No: Rashes Psychiatric: Present: Alert, Oriented x 3 Medical Decision Making ED Course and Treatment: 02/16/17 19:04 71yr old male with hx of chf with sob, b/l leg swelling, right arm swelling. hypoxic at 88% on room air. xopenex given cbc; hgb:10.4 Cmp; glucose; 62, bun; 41 INR: 1.5 cxr; + vascular congestion Venous duplex of the right upper extremity no DVT verbal report from neurodiagnostic technologist ekg; atrial fibrillation at 64 bpm left axis deviation no ST elevations 02/16/17 21:19 Patient started on 40 mg of Lasix IV Patient given nasal cannula at 2 L. O2 saturation 94% D-dimer elevated at 3040 Case was discussed in depth with Dr. kraus Case was discussed in depth with Dr. varghese covering for dr. calles. We'll start Lovenox subq. Elevated d-dimer in the setting of hypoxia concerning for PE. dr. simmons on consult. Patient reassessment: Patient nontoxic well-appearing no distress with stable vital signs streaking in full sentences resting comfortably in the emergency room I discussed the results in depth with the patient. Impression: CHF, hypoxia, elevated d-dimer admit to telemetry Reassessment Condition: Re-examined, Improving,but remains with symptoms - Lab Interpretations Lab Results: 02/16/17 18:17 02/16/17 18:17 Lab Results 02/16/17 18:30: D-Dimer, Quantitative 3044 H 02/16/17 18:17: Digoxin 1.4 02/16/17 18:17: WBC 5.8, RBC 4.59, Hgb 10.5 L, Hct 34.4 L, MCV 74.9 L, MCH 22.9 L, MCHC 30.5 L, RDW 19.8 H, Plt Count 184, MPV 10.1, Gran % 68.4 H, Lymph % ( Auto) 19.7 L, [place] % (Auto) 9.3 H, Eos % (Auto) 1.4 L, Baso % (Auto) 1.2, Gran # 3.99, Lymph # 1.2, [place] # 0.5, Eos # 0.1, Baso # 0.07 02/16/17 18:17: Sodium 137, Potassium 4.5, Chloride 100, Carbon Dioxide 28, Anion Gap 14, BUN 41 H, Creatinine 1.5, Est GFR ( Amer) 56, Est GFR (Non- Af Amer) 46, Random Glucose 62 L, Calcium 8.8, Total Bilirubin 1.1, AST 29, ALT 30, Alkaline Phosphatase 71, Lactate Dehydrogenase 429, Total Creatine Kinase 43 , Troponin I 0.02, NT-Pro-B Natriuret Pep 4130 H, Total Protein 7.2, Albumin 4.0 , Globulin 3.3, Albumin/Globulin Ratio 1.2 02/16/17 18:17: PT 16.5 H, INR 1.50 H, APTT 30.0 - RAD Interpretation Radiology Orders: 02/16/17 17:21 CHEST PORTABLE [RAD] Stat 02/16/17 17:22 DUPLEX UPPER EXTRM VEIN RIGHT [US] Stat - Medication Orders Current Medication Orders: Discontinued Medications Enoxaparin Sodium (Lovenox) 90 mg SC STAT STA PRN Reason: Protocol Stop: 02/16/17 20:47 Last Admin: 02/16/17 20:56 Dose: 90 mg Subcutaneous Administrations Document 02/16/17 20:56 CNR (Rec: 02/16/17 20:57 CNR [id number]) Injection Site MAR Injection Site Left Abdomen Charges for Administration # of Subcutaneous Administrations 1 Furosemide (Lasix) 40 mg IVP STAT STA Stop: 02/16/17 18:58 Last Admin: 02/16/17 19:52 Dose: 40 mg MAR Blood Pressure Document 02/16/17 19:52 CNR (Rec: 02/16/17 19:52 CNR [id number]) Blood Pressure Blood Pressure (100/60-150/90 mm Hg) 123/61 IVP Administration Document 02/16/17 19:52 CNR (Rec: 02/16/17 19:52 CNR [id number]) Charges for Administration # of IVP Administrations 1 Levalbuterol HCl (Xopenex) 1.25 mg IH STAT STA Stop: 02/16/17 18:00 Last Admin: 02/16/17 18:29 Dose: 1.25 mg Disposition/Present on Arrival - Present on Arrival Any Indicators Present on Arrival: Yes History of DVT/PE: No History of Uncontrolled Diabetes: Yes Urinary Catheter: No History of Decub. Ulcer: No History Surgical Site Infection Following: None - Disposition Have Diagnosis and Disposition been Completed?: Yes Diagnosis: CHF (congestive heart failure), Swelling of right upper extremity, Elevated d- dimer Disposition: HOSPITALIZED Disposition Time: 21:24 Patient Plan: Admission Condition: FAIR
[2017-02-16 18:33] LABS: BASO # 0.07 K/mm3 (0.0-2.0); BASO % 1.2 % (0.0-3.0); EOS # 0.1 (0.0-0.7); EOS % 1.4 % (1.5-5.0); GRAN # 3.99 (1.4-6.5); GRAN % 68.4 % (50.0-68.0); HEMOGLOBIN 10.5 g/dL (14.0-18.0); LYMPH # 1.2 (1.2-3.4); LYMPH % 19.7 % (22.0-35.0); MEAN CELL VOLUME 74.9 fl (80.0-105.0); MEAN CORPUSCULAR HEMOGLOBIN 22.9 pg (25.0-35.0); MEAN CORPUSCULAR HGB CONC 30.5 g/dl (31.0-37.0); MEAN PLATELET VOLUME 10.1 fl (7.0-11.0); MONO # 0.5 (0.1-0.6); MONO % 9.3 % (1.0-6.0); RBC 4.59 10^6/uL (3.5-6.1); RED CELL DISTRIBUTION WIDTH 19.8 % (11.5-14.5); WHITE BLOOD COUNT 5.8 10^3/ul (4.5-11.0)
[2017-02-16 18:42] LABS: ALB/GLOB RATIO 1.2 (1.1-1.8); CALCIUM 8.8 mg/dL (8.4-10.5)
[2017-02-16 18:54] LABS: TROPONIN I 0.02 ng/mL
[2017-02-16 18:57] LABS: INR 1.5 (0.93-1.08); PROTHROMBIN TIME 16.5 SECONDS (9.4-12.5)
[2017-02-16] MEDS ORDERED: Enoxaparin 100 mg Syringe SC STA (20:46)
[2017-02-16] MEDS ORDERED: Oxycodone/Acetaminophen 5/325 mg Tab PO STA (21:22)
[2017-02-17] MEDS: Enoxaparin 100 mg Syringe SC SCH ×3 (01:22→23:30)
[2017-02-17 02:37] LABS: INR 1.57 (0.93-1.08); PROTHROMBIN TIME 17.3 SECONDS (9.4-12.5)
[2017-02-17] MEDS: diltiaZEM 180 mg/24 Hours CD Cap PO SCH (10:27)
[2017-02-17] MEDS: GlipiZIDE 10 mg SR Tab PO SCH ×2 (10:38→18:21)
--- NOTE | 2017-02-17 11:02 | US ---
PROCEDURE: Right upper extremity venous US CLINICAL HISTORY: Arm pain and swelling Evaluate for deep venous thrombosis. PHYSICIAN(S): Charli Bear M.D FINDINGS: The visualized rightinternal jugular vein is sonographically normal and compressible. No evidence of obstruction or thrombus is seen. The visualized segments of the right subclavian vein are patent with normal waveforms. No sonographic evidence of obstruction or thrombosis is seen. The visualized deep venous system of the proximal right upper extremity is sonographically normal and compressible. IMPRESSION: 1. No sonographic evidence for deep venous thrombosis in the visualized segments of the right upper extremity.
--- NOTE | 2017-02-17 11:13 | RAD ---
HISTORY: sob/swelling COMPARISON: 07/08/2016 FINDINGS: LUNGS: No active pulmonary disease. PLEURA: No significant pleural effusion identified, no pneumothorax apparent. CARDIOVASCULAR: Mild cardiomegaly. Mild vascular congestion. Single lead pacemaker OSSEOUS STRUCTURES: No significant abnormalities. VISUALIZED UPPER ABDOMEN: Normal. OTHER FINDINGS: None. IMPRESSION: Mild vascular congestion
[2017-02-17] MEDS: Digoxin 125 mcg (0.125 mg) Tab PO SCH (13:21)
--- NOTE | 2017-02-17 17:11 | CARD ---
APPROVED REPORT EKG Measurement Heart [id number] <Conclusion> Atrial fibrillation Left axis deviation Possible Lateral infarct, age undetermined Abnormal ECG
--- NOTE | 2017-02-17 19:53 | CON ---
DATE: 02/17/2017 INDICATIONS: Edema of the lower extremities and right arm. HISTORY OF PRESENT ILLNESS: This is a 71-year-old man, known to us from prior admissions, admitted yesterday through the emergency room when he complained of swelling of his legs and right arm and right hand. He complained of fatigue and dyspnea on exertion. There was no chest pain reported. There is no orthopnea, PND, syncope, presyncope, lightheadedness, dizziness, or vertigo. No fever, chills, cough, sputum production or hemoptysis. No abdominal pain, nausea, vomiting, diarrhea, constipation, or melena. PAST MEDICAL HISTORY: Notable for coronary artery disease with remote myocardial infarctions and coronary interventions, congestive heart failure. An echocardiogram in 03/2016 revealed moderately severe LV dysfunction with an ejection fraction of around 35%, he has moderate TR and [id number] pulmonary hypertension. He has chronic atrial fibrillation, on warfarin. He has a permanent pacemaker. 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 He has a history of peptic ulcer disease and stomach cancer with gastrectomy. He has cerebrovascular disease based on a carotid ultrasound. He drinks beer on a daily basis. CURRENT MEDICATIONS: Include diltiazem, Coreg, warfarin, digoxin, aspirin, flaxseed oil, glipizide, Percocet, Lasix, Metanx, gabapentin, omega-3 fish oil, Pepcid, Pravachol, acarbose, vitamin D, and vitamin E. ALLERGIES: THERE WERE NO MEDICATIONS ALLERGIES REPORTED. SOCIAL HISTORY: He is a smoker. He drinks beer on almost daily basis, although this may be diminished lately. He lives at home. He is sedentary. FAMILY HISTORY: Noncontributory. REVIEW OF SYSTEMS: A 10-point review of systems is otherwise unremarkable except as noted above. PHYSICAL EXAMINATION: GENERAL: He is a well-developed male, lying in bed on telemetry, in no acute distress. VITAL SIGNS: Notable for atrial fibrillation, heart rate in the 50s and 60s, afebrile, blood pressure 116/54, respirations 16 to 20, O2 saturation 94% to 96% on nasal canula. HEENT: Reveals no neck vein distention, thyromegaly, or carotid bruits. Mucous membranes moist. Conjunctivae pink. NECK: Supple. LUNGS: Lung caal clear. HEART: Reveals irregular rhythm. Normal first and second heart sounds. ABDOMEN: Soft. Bowel sounds present. No mass, organomegaly, tenderness, rebound, guarding, CVA tenderness or palpable abdominal aortic aneurysm. EXTREMITIES: Reveal edema of both legs. Amputations of the toes on his right foot. His right arm is also swollen, especially his right hand at the dorsum area. NEUROLOGIC: Awake, alert, and oriented. PSYCHIATRIC: Normal as to mood and affect. SKIN: Warm and dry. No rash or cellulitis. LABORATORY AND IMAGING: EKG demonstrates atrial fibrillation, left anterior hemiblock, poor R-wave progression, nonspecific ST-wave changes, anterolateral myocardial infarction, old. No change compared to an old EKG. The chest x-ray is a portable study, does not interpreted yet, which shows cardiomegaly, no definite congestive heart failure, possible small left pleural effusion, await radiologist interpretation. Extremity ultrasounds were done, results are pending. White count normal, hemoglobin 10.5, hematocrit 34.4, platelets count normal. PT 16.5, repeat 17.3. INR 1.5, repeat 1.57. PTT 30. D-dimer 3044. Electrolytes unremarkable except that the BUN is 41 and creatinine is 1.5. LFTs are unremarkable. CK 43, troponin 0.02, BNP 4130, digoxin level 1.4 at present. ASSESSMENT: Prashant Tolentino is a 71-year-old man with edema of the legs and right arm and hand with known history of cardiac disease including myocardial infarctions, coronary interventions, left ventricular dysfunction, tricuspid regurgitation with [id number] pulmonary hypertension, permanent pacemaker, and chronic atrial fibrillation, he is a diabetic with diabetic foot, amputation of the toes on the right foot, peripheral neuropathy and cerebrovascular disease, he has a history of gastrectomy for stomach cancer and he is a smoker with history of daily beer consumption. PLAN: At this time, he is admitted to telemetry. I will review his old records and echocardiogram. We will resume his usual medications. I would switch p.o. to IV Lasix. Monitor Is and Os. Check stool for occult blood. I will continue diltiazem and Coreg. He will get an increased dose of warfarin. He is getting aspirin, glipizide, digoxin, Lipitor in place of Pravachol, gabapentin, Pepcid, acarbose and Xopenex. He is getting Lovenox until the INR is subtherapeutic. He can be out of bed to a chair. He should elevate his right arm. Ultrasound of the right upper extremity is pending. I will follow along with you. I will make additional recommendations based on his clinical course. Bernardo August MD [email or web address]
[2017-02-18 06:33] LABS: INR 1.71 (0.93-1.08)
--- NOTE | 2017-02-18 08:42 | CP.PCM.PN ---
Subjective - Date & Time of Evaluation Date of Evaluation: 02/18/17 Time of Evaluation: 07:00 - Subjective Subjective: Stable on 2R. No CP or SOB. Edema RUE better. V/S noted. AF PE: Lungs: clear Cor.: S1S2 Abd.: soft Ext.: edema better Neuro.: alert Labs: INR = 1.71 UE U/S: No DVT Objective - Vital Signs/Intake and Output Vital Signs (last 24 hours): Temp Pulse Resp BP Pulse Ox 98 F 61 20 131/78 97 02/18/17 06:00 02/18/17 06:00 02/18/17 06:00 02/18/17 06:00 02/18/17 06:00 Intake and Output: 02/18/17 02/18/17 06:59 18:59 Intake Total 100 Output Total 1 Balance 99 - Medications Medications: Current Medications Acarbose (Precose 50 Mg Tab) 100 mg PO WM [facility] Last Admin: 02/17/17 20:00 Dose: 100 mg Acetaminophen (Tylenol 325mg Tab) 650 mg PO Q4H PRN PRN Reason: Pain, moderate (4-7) Last Admin: 02/18/17 01:26 Dose: 650 mg Aspirin (Ecotrin) 81 mg PO DAILY [facility] Last Admin: 02/17/17 10:38 Dose: 81 mg Atorvastatin Calcium (Lipitor) 10 mg PO DIN [facility] Last Admin: 02/17/17 18:22 Dose: 10 mg Carvedilol (Coreg) 25 mg PO BID [facility] Last Admin: 02/17/17 18:21 Dose: Not Given Digoxin (Lanoxin) 0.125 mg PO 1400 [facility] Last Admin: 02/17/17 13:21 Dose: Not Given Diltiazem HCl (Cardizem Cd) 180 mg PO DAILY [facility] Last Admin: 02/17/17 10:27 Dose: Not Given Enoxaparin Sodium (Lovenox) 90 mg SC Q12H [facility] PRN Reason: Protocol Last Admin: 02/17/17 23:30 Dose: 90 mg Famotidine (Pepcid) 20 mg PO BID [facility] Last Admin: 02/17/17 18:22 Dose: 20 mg Furosemide (Lasix) 40 mg IVP BID [facility] Last Admin: 02/17/17 19:00 Dose: 40 mg Gabapentin (Neurontin) 600 mg PO TID [facility] PRN Reason: Protocol Last Admin: 02/17/17 18:22 Dose: 600 mg Glipizide (Glucotrol Xl) 10 mg PO BID [facility] Last Admin: 02/17/17 18:21 Dose: 10 mg Warfarin Sodium (Coumadin) 6 mg PO 1800 [facility] PRN Reason: Protocol Last Admin: 02/17/17 18:21 Dose: 6 mg Warfarin Sodium (Coumadin) 7.5 mg PO ONCE ONE PRN Reason: Protocol Stop: 02/18/17 10:01 - Labs Labs: PT 19.0 SECONDS (9.4-12.5) H 02/18/17 06:00 INR 1.71 (0.93-1.08) H 02/18/17 06:00 APTT 30.0 Seconds (25.1-36.5) 02/16/17 18:17 Assessment and Plan - Assessment and Plan (Free Text) Assessment: Edema, LE, RUE CAD/WA/PCI's/LVD-mod. on echo 04/10 with mod. MR and mod/sev. PH CHF AF, on warfarin Diabetes PN Diabetic foot/Amp. toes right foot PUD Gastric cancer with gastrectomy CVD Smoker Plan Continue IV Lasix Monitor labs, I/O, INR's Warfarin 7.5 today. D/C Lovenox after AM dosage OOB as livan.
[2017-02-18 10:44] LABS: BASO # 0.06 K/mm3 (0.0-2.0); BASO % 1.1 % (0.0-3.0); EOS # 0.1 (0.0-0.7); EOS % 1.6 % (1.5-5.0); GRAN # 3.75 (1.4-6.5); HEMOGLOBIN 10.4 g/dL (14.0-18.0); LYMPH # 1.1 (1.2-3.4); LYMPH % 19.7 % (22.0-35.0); MEAN CELL VOLUME 74.9 fl (80.0-105.0); MEAN CORPUSCULAR HEMOGLOBIN 22.9 pg (25.0-35.0); MEAN CORPUSCULAR HGB CONC 30.5 g/dl (31.0-37.0); MONO # 0.6 (0.1-0.6); MONO % 10.6 % (1.0-6.0); RBC 4.55 10^6/uL (3.5-6.1); WHITE BLOOD COUNT 5.6 10^3/ul (4.5-11.0)
[2017-02-18 11:02] LABS: ALB/GLOB RATIO 1.2 (1.1-1.8); ALBUMIN 3.7 g/dL (3.0-4.8); ALT/SGPT 26 U/L (7-56); AST/SGOT 24 U/L (17-59); B-TYPE NATRIURETIC PEPTIDE 3920 pg/mL (0-450); BLOOD UREA NITROGEN 31 mg/dL (7-21); CALCIUM 8.9 mg/dL (8.4-10.5); GFR AFRICAN-AMERICAN > 60; GFR NON-AFRICAN AMERICAN > 60; MAGNESIUM 1.9 mg/dL (1.7-2.2)
[2017-02-18] MEDS ORDERED: Oxycodone/Acetaminophen 5/325 mg Tab PO ONE (11:05)
[2017-02-18] MEDS: diltiaZEM 180 mg/24 Hours CD Cap PO SCH (11:37)
[2017-02-18] MEDS: GlipiZIDE 10 mg SR Tab PO SCH (11:38)
[2017-02-18] MEDS: Digoxin 125 mcg (0.125 mg) Tab PO SCH (15:05)
[2017-02-18] MEDS: Oxycodone/Acetaminophen 5/325 mg Tab PO PRN (17:20)
[2017-02-19] MEDS: Oxycodone/Acetaminophen 5/325 mg Tab PO PRN ×3 (00:33→17:00)
[2017-02-19 06:14] VITALS: RESP 20; O2SAT 97
[2017-02-19 06:20] LABS: BASO # 0.06 K/mm3 (0.0-2.0); BASO % 1.3 % (0.0-3.0); EOS # 0.1 (0.0-0.7); GRAN # 2.69 (1.4-6.5); GRAN % 58.4 % (50.0-68.0); HEMOGLOBIN 9.7 g/dL (14.0-18.0); LYMPH # 1.3 (1.2-3.4); MEAN CELL VOLUME 75.2 fl (80.0-105.0); MEAN CORPUSCULAR HEMOGLOBIN 22.5 pg (25.0-35.0); MEAN CORPUSCULAR HGB CONC 29.8 g/dl (31.0-37.0); MONO # 0.4 (0.1-0.6); MONO % 9.3 % (1.0-6.0); RBC 4.32 10^6/uL (3.5-6.1); RED CELL DISTRIBUTION WIDTH 19.8 % (11.5-14.5); WHITE BLOOD COUNT 4.6 10^3/ul (4.5-11.0)
[2017-02-19 06:25] LABS: INR 2.3 (0.93-1.08); PROTHROMBIN TIME 25.7 SECONDS (9.4-12.5)
[2017-02-19 06:40] LABS: ALB/GLOB RATIO 1.1 (1.1-1.8); ALBUMIN 3.4 g/dL (3.0-4.8); ALT/SGPT 21 U/L (7-56); AST/SGOT 31 U/L (17-59); BLOOD UREA NITROGEN 25 mg/dL (7-21); CALCIUM 8.7 mg/dL (8.4-10.5); GFR AFRICAN-AMERICAN > 60; GFR NON-AFRICAN AMERICAN > 60; MAGNESIUM 1.9 mg/dL (1.7-2.2)
--- NOTE | 2017-02-19 09:02 | CP.PCM.PN ---
Subjective - Date & Time of Evaluation Date of Evaluation: 02/19/17 Time of Evaluation: 07:00 - Subjective Subjective: Stable on 2R. No CP or SOB. Edema RUE gone. V/S noted. AF PE: Lungs: clear Cor.: S1S2 Abd.: soft Ext.: edema better Neuro.: alert Labs: INR = 2.3. CMP OK UE U/S: No DVT Objective - Vital Signs/Intake and Output Vital Signs (last 24 hours): Temp Pulse Resp BP Pulse Ox 97.8 F 48 L 20 122/65 97 02/19/17 06:00 02/19/17 06:00 02/19/17 06:00 02/19/17 06:00 02/19/17 06:00 Intake and Output: 02/19/17 02/19/17 06:59 18:59 Intake Total 600 Output Total 4 Balance 596 - Medications Medications: Current Medications Acarbose (Precose 50 Mg Tab) 100 mg PO WM [facility] Last Admin: 02/19/17 08:21 Dose: 100 mg Aspirin (Ecotrin) 81 mg PO DAILY [facility] Last Admin: 02/18/17 11:37 Dose: 81 mg Atorvastatin Calcium (Lipitor) 10 mg PO DIN [facility] Last Admin: 02/18/17 17:20 Dose: 10 mg Carvedilol (Coreg) 25 mg PO BID [facility] Last Admin: 02/18/17 17:19 Dose: 25 mg Digoxin (Lanoxin) 0.125 mg PO 1400 [facility] Last Admin: 02/18/17 15:05 Dose: 0.125 mg Diltiazem HCl (Cardizem Cd) 180 mg PO DAILY [facility] Last Admin: 02/18/17 11:37 Dose: 180 mg Enoxaparin Sodium (Lovenox) 90 mg SC Q12H [facility] PRN Reason: Protocol Last Admin: 02/17/17 23:30 Dose: 90 mg Famotidine (Pepcid) 20 mg PO BID [facility] Last Admin: 02/18/17 17:20 Dose: 20 mg Furosemide (Lasix) 40 mg IVP BID [facility] Last Admin: 02/18/17 17:22 Dose: Not Given Gabapentin (Neurontin) 600 mg PO TID [facility] PRN Reason: Protocol Last Admin: 02/18/17 18:23 Dose: 600 mg Oxycodone/Acetaminophen (Percocet 5/325 Mg Tab) 1 tab PO Q4H PRN PRN Reason: Pain, moderate (4-7) Stop: 02/21/17 16:17 Last Admin: 02/19/17 08:22 Dose: 1 tab Warfarin Sodium (Coumadin) 6 mg PO 1800 [facility] PRN Reason: Protocol Last Admin: 02/17/17 18:21 Dose: 6 mg - Labs Labs: 02/19/17 05:15 02/19/17 05:15 PT 25.7 SECONDS (9.4-12.5) H 02/19/17 05:15 INR 2.30 (0.93-1.08) H 02/19/17 05:15 APTT 30.0 Seconds (25.1-36.5) 02/16/17 18:17 Assessment and Plan - Assessment and Plan (Free Text) Assessment: Edema, LE, RUE CAD/CO/PCI's/LVD-mod. on echo 04/10 with mod. MR and mod/sev. PH CHF AF, on warfarin Diabetes PN Diabetic foot/Amp. toes right foot PUD Gastric cancer with gastrectomy CVD Smoker Plan Continue IV Lasix Monitor labs, I/O, INR's Warfarin 6 mg. today. OOB as livan./PT
--- NOTE | 2017-02-19 09:15 | PQF CHF ---
This form is a permanent part of the medical record Clarification of your documentation is requested to better reflect the severity of illness and intensity of treatment of your patient. Indicators present Pt w/ Hx CHF, presented w/ SOB & increased leg swelling, BNP 4130, Treated w/ IV Lasix. CXR- mild vascular congested. Please document if CHF, POA, also note type & acuity for accurate coding. [x] Diagnosis of CHF and/or history of CHF [x] BNP > 200 [] Imaging Finding of Pulmonary Edema /Pleural Effusions [] Fluid/Volume Overload [x] Pitting edema [] Ejection Fraction < 40% (Indicative of Systolic Heart Failure) [] Ejection Fraction > 40% (Indicative of Diastolic Heart Failure) [x] Dyspnea / Orthopenea / Paroxysmal Nocturnal Dyspnea [] Other: Location in the medical record that reflects the above clinical findings: [] H&P Treatment Provided: [x] I&O, Wt, IV Lasix PHYSICIAN'S RESPONSE Based on your medical judgment of the clinical indicators outlined above, are you treating this patient for a known or suspected: [] Acute CHF [] Systolic [] Diastolic [] Combined [] Chronic CHF [] Systolic [] Diastolic [] Combined [] Acute on Chronic CHF []Systolic [] Diastolic [] Combined [] CHF due hypertension [] Acute systolic []Chronic systolic [] Acute/ chronic systolic [] Other, please indicate: [] [] If Unable to Determine, please check the box, sign and date. Present On Admission (POA) Indicator: [] Present at the time of admission [] Not present at the time of admission [] Clinically Undetermined In responding to this query, please exercise your independent professional judgment. The fact that a question is asked does not imply that any particular answer is desired or expected. Thank you for your clarification on this documentation. If you have any questions please call:[ ][phone] * Thank you, [ ]Poly Giang RN CDS emergency medicine nurse practitioner MICHEAL
[2017-02-19] MEDS: diltiaZEM 180 mg/24 Hours CD Cap PO SCH (09:48)
[2017-02-19 12:12] VITALS: TEMP 97.4
[2017-02-19 13:36] VITALS: PULSE 53
[2017-02-19] MEDS: Digoxin 125 mcg (0.125 mg) Tab PO SCH (13:36)
[2017-02-19 17:51] VITALS: BP 130/87; PULSE 54
--- NOTE | 2017-02-20 01:03 | PN ---
DATE: 02/17/2017 SUBJECTIVE: He is comfortable in bed, in no acute distress. Shortness of breath has decreased. Denies any chest pain. He is still complaining of bilateral leg pain, getting Percocet for that. Heart rate is well-controlled with current medications. He still has swelling of the right arm. He is being aggressively diuresed. REVIEW OF SYSTEMS: As per HPI. Rest of 12-point review of systems reviewed and negative. MEDICATIONS: Acarbose 100 mg p.o. twice a week, aspirin 81 mg daily, Lipitor 20 mg daily, Coreg mg p.o. b.i.d., digoxin 0.125 mg p.o. daily, Cardizem 180 mg daily, Lovenox 90 mg subcu q. 12 hours, Pepcid 40 mg IV daily, Lasix 40 mg IV b.i.d., gabapentin 600 mg p.o. t.i.d., Percocet p.r.n., and Coumadin 6 mg daily. PHYSICAL EXAMINATION: GENERAL: Comfortable in bed, in no acute distress. VITAL SIGNS: Temperature 98.7, heart rate 60 per minute, blood pressure 110/70, respiratory rate 18 per minute, and oxygen saturation 98% on room air. HEENT: Pallor positive. NECK: Supple. CHEST: Air entry present and equal bilaterally. No added sounds. CARDIOVASCULAR: S1 and S2 normal. Heart rate is irregularly irregular. ABDOMEN: Soft and nontender. No hepatosplenomegaly. EXTREMITIES: Bilateral 1+ edema. PROFESSIONAL DEVELOPMENT MANAGER: Alert and oriented x3. No focal sensory or motor deficit. LABORATORY DATA: White count 12.8, hemoglobin 10.5, hematocrit , MCV 74. Sodium 141, potassium 3.8, creatinine 1.2, and BNP 3920. ASSESSMENT: 1. Congestive heart failure. 2. Atrial fibrillation. 3. History of gastric cancer. 4. History of lung cancer. 5. Chronic anemia. 6. Bilateral leg edema. PLAN: We will continue to aggressively diurese with Lasix 40 mg IV daily. Cardiology consultation appreciated. Blood counts are stable. We will continue Lasix IV b.i.d. Electrolytes are normal. Potassium is normal. Pain is well controlled with gabapentin and Percocet. We will continue the same. Continue to monitor PT and INR. Continue Coumadin and Lovenox. Janey Moya MD
--- NOTE | 2017-02-20 01:25 | DS ---
DISCHARGE DIAGNOSES: 1. Congestive heart failure. 2. Atrial fibrillation. 3. Chronic anemia. 4. History of lung cancer. 5. History of gastric cancer. HOSPITAL COURSE: He was admitted with increased shortness of breath, right upper lip swelling, bilateral lower extremity swelling. He was treated with aggressive diuresis. Cardiology consulted, Dr. August. Doppler, upper extremity, was negative for DVT. Condition improved during hospitalization. He has been transferred to rehab for deconditioning. PHYSICAL EXAMINATION ON DISCHARGE: GENERAL: Comfortable in bed, in no acute distress. VITAL SIGNS: Heart rate is 60 per minute, blood pressure is 130/70, respiratory rate 18 per minute, oxygen saturation 98% on room air. HEENT: Pallor positive. NECK: Supple. No lymphadenopathy. CHEST: Fair air entry present and equal bilaterally. No added sounds. CARDIOVASCULAR EXAM: S1 and S2 normal. No murmur. No gallop. ABDOMEN: Soft and nontender. No hepatosplenomegaly. EXTREMITIES: Bilateral 1+ edema. CENTRAL NERVOUS SYSTEM: Alert and oriented x3. No focal sensory or motor deficit. SKIN: No petechia. No rash. CONDITION ON DISCHARGE: Stable. DISPOSITION: Discharged to Transitional Care Unit. Continue current medications. Discussed with the staff nurse. Discussed with the patient. Time spent in preparing discharge and coordinating care, 50 minutes. Janey Griffin, MD
--- NOTE | 2017-02-20 01:33 | PN ---
DATE: 02/18/2017 FOLLOWUP NOTE SUBJECTIVE: He is comfortable in bed, in no acute distress. Respiratory distress improved. He developed an episode of hypoglycemia. At 10:30 this morning, blood glucose was 34. He was given orange juice, hypoglycemia resolved. He ate the entire breakfast. Denies any chest pain. No shortness of breath. Blood counts are stable. REVIEW OF SYSTEMS: As per HPI. Rest of 12-point review of system was reviewed negative. MEDICATIONS: Diltiazem 180 mg daily, 100 mg Wednesday and Wednesday, Lipitor 10 mg daily, Coreg 25 mg p.o. b.i.d., digoxin 0.125 mg daily, diltiazem 180 daily, Lovenox 90 b.i.d., Lasix 40 b.i.d., Percocet and Coumadin. PHYSICAL EXAMINATION GENERAL: Comfortable in bed, in no acute distress. VITAL SIGNS: Temperature 98.7, heart rate is 80 per minute, respiratory rate 16 per minute, blood pressure 110/70. HEENT: Normal. NECK: No lymphadenopathy. CHEST: Fair air entry present and equal bilaterally. No added sound. CARDIOVASCULAR: S1 and S2 normal. No murmur. No gallop. ABDOMEN: Soft, nontender. No hepatosplenomegaly. EXTREMITIES: No edema. COOK FROZEN DESSERT: Alert, oriented x3. No focal sensory or motor deficit. LABORATORY DATA: White count 5.6, hemoglobin 10.4, hematocrit 34 and MCV 74.9, platelet count 198. Sodium 141, potassium 3.8, creatinine 1.2, glucose 34. BNP 3900. ASSESSMENT AND PLAN: 1. Hypoglycemia. 2. Congestive heart failure. 3. Atrial fibrillation. 4. Anemia. 5. History of lung cancer. 6. History of gastric cancer. PLAN: Episode of hypoglycemia resolved. We will continue the regular diet. Continue aggressive diuresis. Electrolytes are normal. Hemoglobin and hematocrit stable. We will do the workup for anemia, iron studies, B12, and folate level. Electrolytes are normal. He is on aggressive diuresis 40 b.i.d. Shortness of breath has decreased. Leg edema has decreased. We will encourage bedside ambulation, bedside PT ordered. I discussed with the staff nurse. Discussed with the patient. Janey Moya MD
--- NOTE | 2017-02-20 01:54 | HP ---
DATE OF EVALUATION: 02/16/2017 HISTORY OF PRESENT ILLNESS: Mr. Tolentino is a 71-year-old male who presented to the ED with bilateral leg swelling, right arm swelling and shortness of breath. Chest-ray showed pulmonary congestion with congestive heart failure. He has history of chronic anemia. Also history of gastric cancer and lung cancer. Last PET scan was done in 04/2016 did not show any recurrence of disease. Denies any chest pain. No fever and no cough with expectoration. PAST MEDICAL HISTORY: Atrial fibrillation, coronary artery disease, has defibrillator, hypertension, multiple cardiac catheterization, neurological peripheral neuropathy, diabetes mellitus type 2, history of stomach cancer and lung cancer, and GE reflux. PAST SURGICAL HISTORY: Amputation of the right foot, metatarsal, and cardiac catheterization. FAMILY HISTORY: Noncontributory. PERSONAL HISTORY: Heavy smoker, continue to smoke. History of alcohol abuse in the past. SOCIAL HISTORY: Lives at home. ALLERGIES: NO KNOWN DRUG ALLERGIES. HOME MEDICATIONS: Digoxin 0.125 mg daily, Glucotrol 10 mg p.o. b.i.d., Coreg 25 mg p.o. b.i.d., Pepcid 20 mg b.i.d., Neurontin 600 mg p.o. t.i.d., Cardizem 180 mg daily, aspirin 81 mg daily, Coumadin 2.5 mg daily, acarbose 100 mg p.o. t.i.d., multivitamins and Pravachol 40 mg daily. REVIEW OF SYSTEMS: As per HPI. Rest of 12-point review of systems reviewed negative. PHYSICAL EXAMINATION GENERAL: Comfortable in bed, in no acute distress. VITAL SIGNS: Temperature is 97.7, heart rate is 60 per minute, respiratory rate is 18 per minute, blood pressure is 119/77 and pulse oximetry is 87% on oxygen by nasal cannula. HEENT: Pallor positive. NECK: No lymphadenopathy. CHEST: Mild respiratory distress. Occasional rhonchi at the bases. CARDIOVASCULAR: Atrial fibrillation present. S1 and S2 normal. ABDOMEN: Soft and nontender. No hepatosplenomegaly. EXTREMITIES: Right upper arm edema and bilateral leg edema 1+. DIAGNOSTIC DATA: Chest x-ray showed vascular congestion and no infiltrate. EKG: Left axis deviation, heart rate is 64 beats per minute, and atrial fibrillation. LABORATORY DATA: White count of 5.8, hemoglobin of 10.5, hematocrit of 34.4 and platelet count of 184. Sodium is 137, potassium is 4.5, BUN is 41, creatinine is 1.5 and glucose is 62. BNP is 4,000. INR is 1.5. IMPRESSION AND PLAN: He will be admitted to telemonitoring. Right arm ultrasound ordered and did not show any deep vein thrombosis. He is subtherapeutic on Coumadin and we will start the Lovenox 90 mcg subcutaneous q. 12 hours, continue Coumadin at 6 mg p.o. daily. We will discontinue Lovenox, once Coumadin is therapeutic, and Percocet p.r.n. for leg pain. He has peripheral neuropathy. He is on gabapentin 600 mg p.o. t.i.d., Lasix 40 mg intravenous b.i.d., Pepcid 20 mg b.i.d., diltiazem 180 mg p.o. daily and continue digoxin 0.125 mg daily, Coreg 25 mg daily, aspirin 81 mg daily, and acarbose 100 mg p.o. three times a week. We will continue to monitor blood counts, telemonitoring, and electrolytes stable now. Cardiology consultation with Dr. August requested. Janey Moya MD
== END 2017-02-19 18:27 | DRG 293 ==
LOC: ED 16:15 → ERH 21:14 → 2RSO 02-17 00:31
PROVIDERS: ADMIT Internal Medicine Medical Oncology; ATTEND Internal Medicine Medical Oncology
DX: I11.0 Hypertensive heart disease with heart failure (principal); I50.9 Heart failure, unspecified; E11.42 Type 2 diabetes mellitus with diabetic polyneuropathy; E11.649 Type 2 diabetes mellitus with hypoglycemia without coma; I27.20 Pulmonary hypertension, unspecified; I25.10 Atherosclerotic heart disease of native coronary artery without angina pectoris; K21.9 Gastro-esophageal reflux disease without esophagitis; I67.9 Cerebrovascular disease, unspecified; K27.9 Peptic ulcer, site unspecified, unspecified as acute or chronic, without hemorrhage or perforation; I48.2 Chronic atrial fibrillation; I36.1 Nonrheumatic tricuspid (valve) insufficiency; D64.9 Anemia, unspecified; F17.210 Nicotine dependence, cigarettes, uncomplicated; Z85.028 Personal history of other malignant neoplasm of stomach; Z85.118 Personal history of other malignant neoplasm of bronchus and lung; Z79.01 Long term (current) use of anticoagulants; Z90.3 Acquired absence of stomach [part of]; Z95.810 Presence of automatic (implantable) cardiac defibrillator; Z95.5 Presence of coronary angioplasty implant and graft

== ENCOUNTER 2017-02-19 18:30 | Inpatient (IN) | payer OTHER, MEDICARE ==
[2017-02-19 18:47] VITALS: BMI 27.6
[2017-02-19] MEDS ORDERED: Influenza Vaccine 60 mcg/0.5 mL SYR (4YR UP) IM ONE (22:33)
[2017-02-19] MEDS ORDERED: Pneumococcal 23-Valent Vaccine IM ONE (22:33)
--- NOTE | 2017-02-20 01:54 | HP ---
HISTORY OF PRESENT ILLNESS: Mr. Prashant Tolentino has history of congestive cardiac failure, atrial fibrillation, admitted with right upper arm swelling, shortness of breath, and lower extremity swelling. He was admitted to [facility]. Transported to Transitional Care Unit for deconditioning. He is not able to walk because of peripheral neuropathy and congestive cardiac failure. He is here for deconditioning. Denies any chest pain, no shortness of breath. He also has history of lung cancer and gastric cancer. PAST MEDICAL HISTORY: Atrial fibrillation, coronary artery disease, CHF, history of lung cancer, and gastric cancer. PAST SURGICAL HISTORY: Multiple cardiac catheterizations. PERSONAL HISTORY: He continues to smoke. History of alcohol abuse. FAMILY HISTORY: Noncontributory. SOCIAL HISTORY: Lives at home. ALLERGIES: NO KNOWN DRUG ALLERGIES. HOME MEDICATIONS: Aspirin 81 mg daily, Coreg 25 mg b.i.d., digoxin 0.125 mg daily, diltiazem 180 mg daily, Pepcid 20 mg p.o. b.i.d., Lasix 40 mg IV b.i.d., Coumadin 6 mg daily. REVIEW OF SYSTEMS: As per HPI. Rest of 12-point review of systems reviewed negative. PHYSICAL EXAMINATION: GENERAL: Comfortable in bed, in no acute distress. VITAL SIGNS: Temperature is 98.7, heart rate is 60 per minute, blood pressure is 110/70, oxygen saturation 98% on room air. HEENT: Normal. Pallor positive. NECK: No lymphadenopathy. CHEST: Air entry present and equal bilaterally. No added sounds. CARDIOVASCULAR EXAM: S1 and S2 normal. No murmur and no gallop. ABDOMEN: Soft and nontender. No hepatosplenomegaly. EXTREMITIES: No edema. CENTRAL NERVOUS SYSTEM: Alert, oriented x3. No focal sensory motor deficit. SKIN: No petechiae, no rash. LABORATORY DATA: Labs reviewed. ASSESSMENT AND PLAN: We will admit to the Transitional Care Unit. We will hold acarbose because of hypoglycemia. We will continue to monitor blood glucose, aspirin 81 mg daily, Coreg 25 mg p.o. b.i.d., digoxin 0.125 mg daily, diltiazem 180 mg daily, Pepcid b.i.d., Lasix 40 mg IV b.i.d., gabapentin 600 mg p.o. t.i.d., Percocet p.r.n. for pain, Coumadin 6 mg. We will continue to monitor PT/INR. Labs ordered for the morning. Janey Moya MD
[2017-02-20] MEDS: Oxycodone/Acetaminophen 5/325 mg Tab PO PRN ×3 (02:47→18:33)
[2017-02-20 07:50] LABS: IRON 25 ug/dL (45-180)
[2017-02-20 07:59] LABS: TOTAL IRON BINDING CAPACITY 384 ug/dL (261-462)
[2017-02-20 08:01] LABS: % IRON SATURATION 6 % (20-55)
[2017-02-20] MEDS ORDERED: Potassium Chloride 20 mEq ER Tab PO ONE (08:10)
--- NOTE | 2017-02-20 09:09 | PN ---
DATE: 02/20/2017 SUBJECTIVE: The patient is seen lying in bed in the TCU. He states that his gait instability persist. He also has persistent peripheral edema. CURRENT MEDICATIONS: Include diltiazem 180 mg daily, carvedilol 25 mg b.i.d., Coumadin, Ecotrin, digoxin 0.125 mg daily, Lasix 40 mg b.i.d., Neurontin, Pepcid, and Percocet p.r.n. PHYSICAL EXAMINATION: GENERAL: He is a middle-aged man who appears comfortable at rest. VITAL SIGNS: His blood pressure is 118/66 with the pulse of 60, respirations are 14 and he is afebrile. HEENT: No JVD. CHEST: Few scattered rhonchi. HEART: PMI displaced laterally with systolic murmur at the lower left sternal border and apex. ABDOMEN: Soft and nontender. Normoactive bowel sounds. EXTREMITIES: 2+ leg edema. His right upper extremity edema has resolved. DIAGNOSTIC DATA: Blood work pending. IMPRESSION: 1. Decompensated congestive heart failure, acute on chronic. 2. Coronary artery disease status post remote myocardial infarction and percutaneous coronary intervention. 3. Moderate left ventricular dysfunction. 4. Moderate mitral and tricuspid regurgitation. 5. Chronic atrial fibrillation. 6. History of diabetes. 7. Peripheral vascular disease with toe amputations in the past. 8. History of gastric cancer status post gastrectomy. RECOMMENDATIONS: His current medications should be continued at this time. IV diuretics therapy will continue as well. A dose of Zaroxolyn will be given today to improve diuresis. Increased activity. Diet is advised as tolerated. We will continue to follow and make further recommendation as appropriate. Chuy Spaulding MD
[2017-02-20] MEDS ORDERED: metOLazone 5 MG TAB PO ONE (09:30)
[2017-02-20] MEDS: diltiaZEM 180 mg/24 Hours CD Cap PO SCH (12:35)
[2017-02-20] MEDS: Digoxin 125 mcg (0.125 mg) Tab PO SCH (14:00)
[2017-02-21 07:55] LABS: BASO # 0.04 K/mm3 (0.0-2.0); BASO % 0.9 % (0.0-3.0); EOS # 0.1 (0.0-0.7); EOS % 2.1 % (1.5-5.0); GRAN # 3.04 (1.4-6.5); GRAN % 64.6 % (50.0-68.0); HEMOGLOBIN 10.4 g/dL (14.0-18.0); LYMPH % 21.3 % (22.0-35.0); MEAN CELL VOLUME 73.4 fl (80.0-105.0); MEAN CORPUSCULAR HEMOGLOBIN 22.7 pg (25.0-35.0); MEAN CORPUSCULAR HGB CONC 30.9 g/dl (31.0-37.0); MEAN PLATELET VOLUME 9.6 fl (7.0-11.0); MONO # 0.5 (0.1-0.6); MONO % 11.1 % (1.0-6.0); RBC 4.59 10^6/uL (3.5-6.1); RED CELL DISTRIBUTION WIDTH 19.7 % (11.5-14.5); WHITE BLOOD COUNT 4.7 10^3/ul (4.5-11.0)
[2017-02-21 08:03] LABS: BLOOD UREA NITROGEN 30 mg/dL (7-21); GFR AFRICAN-AMERICAN > 60; GFR NON-AFRICAN AMERICAN > 60
[2017-02-21 08:25] LABS: INR 3.4 (0.93-1.08); PROTHROMBIN TIME 38.4 SECONDS (9.4-12.5)
[2017-02-21] MEDS: Oxycodone/Acetaminophen 5/325 mg Tab PO PRN ×3 (09:12→17:46)
[2017-02-21] MEDS: diltiaZEM 180 mg/24 Hours CD Cap PO SCH (09:38)
[2017-02-21] MEDS: Digoxin 125 mcg (0.125 mg) Tab PO SCH (13:21)
[2017-02-22] MEDS: Oxycodone/Acetaminophen 5/325 mg Tab PO PRN ×2 (05:25→09:29)
[2017-02-22 07:53] LABS: INR 3.08 (0.93-1.08); PROTHROMBIN TIME 37.7 SECONDS (9.4-12.5)
[2017-02-22] MEDS ORDERED: Potassium Chloride 20 mEq ER Tab PO ONE (08:37)
[2017-02-22] MEDS: diltiaZEM 180 mg/24 Hours CD Cap PO SCH (09:26)
[2017-02-22] MEDS ORDERED: metOLazone 5 MG TAB PO ONE (09:30)
--- NOTE | 2017-02-22 10:37 | PN ---
DATE: 02/22/2017 SUBJECTIVE: The patient is seen lying in bed on Transitional Care Unit. He is comfortable. He states he had some paresthesias in his leg when ambulating yesterday that appears to limit his activities. His leg edema has improved. He denies any dyspnea. CURRENT MEDICATIONS: Include diltiazem 180 mg daily, carvedilol 25 mg b.i.d., aspirin 81 mg daily, digoxin 0.125 mg daily, Lasix 40 mg IV b.i.d., gabapentin 600 mg t.i.d., Pepcid 20 mg daily, and Percocet p.r.n. OBJECTIVE: GENERAL: He is a middle-aged male who appears comfortable at rest. VITAL SIGNS: His blood pressure is 112/54 with a pulse of 60 and irregularly irregular, respirations are 16. He is afebrile. HEENT: No JVD. CHEST: Few scattered rhonchi. HEART: PMI displaced laterally with systolic murmur at the left sternal border and apex. Rhythm is irregularly irregular. ABDOMEN: Soft and nontender, normoactive bowel sounds. EXTREMITIES: 1 to 2+ leg edema. DIAGNOSTIC DATA: No blood work pending from this morning. ASSESSMENT: 1. Decompensated congestive heart failure, acute on chronic, medically improved. 2. Coronary artery disease, status post prior myocardial infarction with percutaneous coronary intervention. 3. Moderate left ventricular systolic dysfunction. 4. Moderate mitral and tricuspid regurgitation. 5. Chronic atrial fibrillation. 6. Peripheral vascular disease with history of toe amputations. 7. Rest of problems as noted. RECOMMENDATIONS: His current medications should continue. An additional dose of Zaroxolyn will be given today. Compression stockings are advised. Increased activity as tolerated is recommended. We will continue to follow and make further recommendations as appropriate. Chuy Spaulding MD
[2017-02-22] MEDS: Digoxin 125 mcg (0.125 mg) Tab PO SCH (13:03)
[2017-02-23] MEDS ORDERED: Oxycodone/Acetaminophen 5/325 mg Tab PO PRN (02:39)
[2017-02-23 08:10] LABS: BLOOD UREA NITROGEN 36 mg/dL (7-21); CALCIUM 9.4 mg/dL (8.4-10.5); GFR AFRICAN-AMERICAN > 60; GFR NON-AFRICAN AMERICAN 55
[2017-02-23] MEDS: diltiaZEM 180 mg/24 Hours CD Cap PO SCH (09:21)
[2017-02-23] MEDS: Oxycodone/Acetaminophen 5/325 mg Tab PO PRN ×2 (12:15→18:37)
[2017-02-23] MEDS: Digoxin 125 mcg (0.125 mg) Tab PO SCH (13:50)
[2017-02-24] MEDS: diltiaZEM 180 mg/24 Hours CD Cap PO SCH (10:32)
[2017-02-24] MEDS: Oxycodone/Acetaminophen 5/325 mg Tab PO PRN (11:48)
[2017-02-24] MEDS: Digoxin 125 mcg (0.125 mg) Tab PO SCH (13:22)
--- NOTE | 2017-02-24 13:58 | PN ---
DATE: 02/24/2017 SUBJECTIVE: Patient states he is feeling better. He is ambulating better. He came in initially because of acute CHF exacerbation that has also improved. He has no complaints of any headaches or dizziness. PHYSICAL EXAMINATION VITAL SIGNS: Temperature is 98.1, pulse of 58, blood pressure is 95/51, respirations 16. GENERAL: The patient is lying in bed, flat, comfortable. HEENT: No oral lesion. Anicteric sclerae. Moist mucosa. NECK: No JVD, adenopathy, or thyromegaly. CARDIOVASCULAR: S1 and S2, regular. No murmurs, rubs, or gallops. LUNGS: Clear to auscultation bilaterally. No wheeze, rales, or rhonchi. ABDOMEN: Bowel sounds are positive, soft, nontender and nondistended. EXTREMITIES: No cyanosis, clubbing or edema. ASSESSMENT: 1. Acute congestive heart failure secondary to systolic dysfunction, improved. 2. Coronary artery disease. 3. Mitral regurgitation. 4. Tricuspid regurgitation. 5. Chronic atrial fibrillation. 6. Peripheral arterial disease. PLAN: The patient is currently comfortable. He is getting Coumadin for his anticoagulation. The patient is on digoxin daily. He is on Lasix twice a day. He is also getting Pepcid. The patient is on Neurontin for neuropathy and he is on a heart healthy diet. He is being followed by Cardiology. Kike Hotl MD
--- NOTE | 2017-02-24 19:57 | PN ---
DATE: 02/24/2017 SUBJECTIVE: The patient was seen sitting in bed on telemetry. He feels significantly better. His ambulation is improved. His leg edema is improved as well. CURRENT MEDICATIONS: Include diltiazem 180 mg daily, carvedilol 25 mg b.i.d., Coumadin, aspirin, digoxin 0.125 mg daily, Lasix 40 mg b.i.d., Neurontin 600 mg t.i.d. and Pepcid 20 mg daily. OBJECTIVE: GENERAL: He is a middle-aged man, appears comfortable at the present time. VITAL SIGNS: His blood pressure is 112/60 with a pulse of 60, respirations are 16. He is afebrile. HEENT: No JVD. CHEST: A few scattered rhonchi. HEART: PMI displaced laterally. Rhythm is irregularly irregular. ABDOMEN: Soft, nontender. Normoactive bowel sounds. EXTREMITIES: Trace ankle edema. DIAGNOSTIC DATA: No blood work pending from this morning. IMPRESSION: 1. Decompensated congestive heart failure, acute on chronic, clinically improved. 2. Coronary artery disease, status post remote myocardial infarction and percutaneous coronary intervention. 3. Moderate left ventricular systolic dysfunction. 4. Chronic atrial fibrillation. 5. Peripheral vascular disease. 6. Moderate mitral and tricuspid regurgitation. RECOMMENDATIONS: His current medications should continue for now. Increased activities are advised. Lasix can be switched to oral administration within the next 24 to 48 hours. Hopefully, discharge home soon will be appropriate. We will be happy to see as needed. Chuy Spaulding MD
[2017-02-25] MEDS: Oxycodone/Acetaminophen 5/325 mg Tab PO PRN ×4 (01:02→22:28)
[2017-02-25] MEDS: diltiaZEM 180 mg/24 Hours CD Cap PO SCH (10:10)
[2017-02-25 11:37] VITALS: RESP 18
[2017-02-25] MEDS: Digoxin 125 mcg (0.125 mg) Tab PO SCH (14:32)
[2017-02-25 14:33] VITALS: PULSE 51
[2017-02-25 17:16] VITALS: TEMP 98
[2017-02-26] MEDS: Oxycodone/Acetaminophen 5/325 mg Tab PO PRN (08:40)
[2017-02-26] MEDS: diltiaZEM 180 mg/24 Hours CD Cap PO SCH (10:42)
[2017-02-26 10:47] VITALS: BP 141/70
[2017-02-26 11:23] LABS: INR 2.98 (0.93-1.08)
[2017-02-26 13:29] VITALS: PULSE 55; O2SAT 93
--- NOTE | 2017-02-27 03:58 | DS ---
HISTORY OF PRESENT ILLNESS: The patient has no complaints of any chest pain or shortness of breath, no headaches or dizziness. He is ambulating better. He is going to be discharged today to a subacute rehab facility. PHYSICAL EXAMINATION: VITAL SIGNS: Temperature is 98, pulse is 47, blood pressure 108/59, respirations 18. GENERAL: The patient is lying in bed, flat, comfortable. HEENT: No oral lesion. Anicteric sclerae. Moist mucosa. NECK: No JVD, adenopathy, or thyromegaly. CARDIOVASCULAR: S1 and S2, regular. No murmurs, rubs, or gallops. LUNGS: Clear to auscultation bilaterally. No wheeze, rales, or rhonchi. ABDOMEN: Bowel sounds are positive, soft, nontender and nondistended. EXTREMITIES: No cyanosis, clubbing or edema. LABORATORY DATA: White count of 4.7, hemoglobin 10.4. Creatinine is 1.3. ASSESSMENT : 1. Acute congestive heart failure secondary to systolic dysfunction. 2. Atrial fibrillation, on Coumadin. 3. Coronary artery disease. 4. Mitral regurgitation. 5. Tricuspid regurgitation. 6. Peripheral arterial disease. PLAN: The patient is on carvedilol. He is going to continue with digoxin and Lasix. The patient is on Percocet for pain. I will change his Lasix to p.o. at this point. CONDITION: Stable. ACTIVITY: Increase as tolerated. Kike Holt MD
== END 2017-02-26 14:14 | DRG 293 ==
LOC: TRCU 18:30
PROVIDERS: ADMIT Internal Medicine Medical Oncology; ATTEND Internal Medicine Medical Oncology
PROC: F07Z9FZ Gait Training/Functional Ambulation Treatment using Assistive, Adaptive, Supportive or Protective Equipment (ICD-10-PCS; principal; 2017-02-20)
PROC: F08Z4FZ Home Management Treatment using Assistive, Adaptive, Supportive or Protective Equipment (ICD-10-PCS; 2017-02-22)
DX: I50.23 Acute on chronic systolic (congestive) heart failure (principal); E11.42 Type 2 diabetes mellitus with diabetic polyneuropathy; E11.51 Type 2 diabetes mellitus with diabetic peripheral angiopathy without gangrene; R26.89 Other abnormalities of gait and mobility; I48.2 Chronic atrial fibrillation; I25.10 Atherosclerotic heart disease of native coronary artery without angina pectoris; I08.1 Rheumatic disorders of both mitral and tricuspid valves; F17.210 Nicotine dependence, cigarettes, uncomplicated; I25.2 Old myocardial infarction; Z79.01 Long term (current) use of anticoagulants; Z85.028 Personal history of other malignant neoplasm of stomach; Z90.3 Acquired absence of stomach [part of]; Z85.118 Personal history of other malignant neoplasm of bronchus and lung; Z79.82 Long term (current) use of aspirin; Z89.429 Acquired absence of other toe(s), unspecified side

== ENCOUNTER 2017-03-30 15:38 | Inpatient (IN) | payer MEDICARE ==
[2017-03-30 15:52] VITALS: BMI 24.5
[2017-03-30] MEDS ORDERED: cefTRIAXone 1 gm 1 GM/100 ML BAG IVPB STA (16:19)
[2017-03-30] MEDS ORDERED: Albuterol-Ipratrop 3 mg / 0.5 (3 ml) UD IH STA (16:19)
--- NOTE | 2017-03-30 16:23 | ED PDOC ---
Arrival/HPI - General Chief Complaint: Cough, Cold, Congestion Time Seen by Provider: 03/30/17 15:56 Historian: Patient, Other (Friend) - History of Present Illness Time/Duration: Other (2 days) Symptom Onset: Gradual Symptom Course: Worsening Quality: Aching Severity Level: Severe Activities at Onset: Rest Associated Symptoms (Text): 03/30/17 16:21 Patient complains of a 2 day history of severe worsening left wrist and hand swelling and pain erythema warmth and tenderness. He has also developed a productive cough over the last several days and he has increasing bilateral lower extremity edema, left greater than right. He was discharged home from rehabilitation 5 days ago after a one-month admission. No fever. Some chills. There is generalized weakness and fatigue. No chest pain. No abdominal pain nausea or vomiting. Past Medical History - Infectious Disease Hx of Infectious Diseases: None - Tetanus Immunization Tetanus Immunization: Unknown - Cardiac Hx Cardiac Disorders: Yes Hx Congestive Heart Failure: Yes Hx Hypertension: Yes Hx Internal Defibrillator: Yes - Pulmonary Hx Respiratory Disorders: Yes Other/Comment: pt stated "I smoke 1 ppd" - Neurological Hx Neurological Disorder: Yes Other/Comment: neuropathy - HEENT Hx HEENT Disorder: Yes (eyeglasses) Hx Blind: No Hx Cataracts: No Hx Deafness: No Hx Difficulty Chewing: No Hx Epistaxis: No Hx Glaucoma: No Hx Macular Degeneration: No - Renal Hx Renal Disorder: No - Endocrine/Metabolic Hx Diabetes Mellitus Type 2: Yes - Hematological/Oncological Hx Blood Disorders: No Hx AIDS: No Hx Anemia: No Hx Cancer: Yes (stomach ca 1997) Hx Chemotherapy: No Hx Cirrhosis: No Hx Hepatitis A: No Hx Hepatitis B: No Hx Hepatitis C: No Hx Metastasis: No Hx Shingles: No Hx Unexplained Bleeding: No - Integumentary Hx Dermatological Disorder: No - Musculoskeletal/Rheumatological Hx Falls: Yes (past) - Gastrointestinal Hx Gastrointestinal Disorders: Yes (hx stomach ca 80% stomach removed 1997) - Genitourinary/Gynecological Hx Reproductive Disorders: No - Psychiatric Hx Psychophysiologic Disorder: No Hx Anxiety: No Hx Bipolar Disorder: No Hx Depression: No Hx Emotional Abuse: No Hx Hallucinations: No Hx Panic Disorder: No Hx Post Traumatic Stress Disorder: No Hx Psychosis: No Hx Physical Abuse: No Hx Schizophrenia: No Hx Sexual Abuse: No Hx Substance Use: No - Surgical History Hx Amputation: Yes (Right toes) - Anesthesia Hx Anesthesia: Yes - Suicidal Assessment Feels Threatened In Home Enviroment: No Family/Social History - Physician Review Nursing Documentation Reviewed: Yes Family/Social History: Unknown Family HX Smoking Status: Heavy Smoker > 10 Cigarettes Daily Hx Alcohol Use: No Hx Substance Use: No Hx Substance Use Treatment: No Allergies/Home Meds Allergies/Adverse Reactions: Allergies No Known Allergies Allergy (Verified 02/16/17 16:28) Home Medications: Home Meds Medication Instructions Recorded Confirmed Digoxin 125 mcg PO DAILY 02/24/12 03/30/17 Glipizide [Glucotrol Xl] 5 mg PO BID 02/24/12 03/30/17 Carvedilol [Coreg] 25 mg PO BID 11/08/15 03/30/17 Famotidine [Pepcid] 20 mg PO BID 11/08/15 03/30/17 Gabapentin [Neurontin] 600 mg PO TID 11/08/15 03/30/17 [id number] CD [Cardizem CD] 180 mg PO DAILY 11/08/15 03/30/17 Aspirin [Ecotrin] 81 mg PO DAILY 11/12/15 03/30/17 Warfarin [Coumadin] 3 mg PO 1800 09/07/16 03/30/17 Review of Systems - Physician Review All systems were reviewed & negative as marked: Yes - Review of Systems Constitutional: Fatigue. absent: Fevers Respiratory: SOB, Cough, Wheezing. absent: Sputum Cardiovascular: absent: Chest Pain, Orthopnea, Syncope Gastrointestinal: absent: Abdominal Pain, Nausea, Vomiting Genitourinary Male: absent: Dysuria, Frequency Musculoskeletal: Arthralgias, Joint Swelling. absent: Myalgias Skin: Cellulitis Neurological: absent: Headache, Dizziness Physical Exam Vital Signs Temp Pulse Resp BP Pulse Ox 03/30/17 15:55 97.8 F 70 16 97 03/30/17 15:39 97.8 F 128/85 Temperature: Afebrile Blood Pressure: Normal Pulse: Regular Respiratory Rate: Normal Appearance: Positive for: Well-Appearing, Non-Toxic, Uncomfortable Pain Distress: Moderate Mental Status: Positive for: Alert and Oriented X 3 - Systems Exam Head: Present: Atraumatic, Normocephalic Pupils: Present: PERRL Extroacular Muscles: Present: EOMI Conjunctiva: Present: Normal Ears: Present: NORMAL TM, Normal Canal. No: Erythema Mouth: Present: Moist Mucous Membranes Pharnyx: No: ERYTHEMA, EXUDATE, TONSILS ENLARGED Neck: Present: Normal Range of Motion Respiratory/Chest: Present: Wheezes, Decreased Breath Sounds, Rhonchi Cardiovascular: Present: Irregular Rhythm Abdomen: Present: Normal Bowel Sounds. No: Tenderness, Distention, Peritoneal Signs, Rebound, Guarding Upper Extremity: Present: NORMAL PULSES, Tenderness, Swelling, Erythema, Neurovascularly Intact, Other (Left dorsal hand has a superficial abrasion. There is erythema and tenderness warmth swelling and limited range of motion of the wrist and fingers. Cellulitis with no streaking). No: Normal ROM, Deformity Lower Extremity: Present: Edema (1+ left lower extremity edema, trace right lower extremity edema) Neurological: Present: GCS=15, CN II-XII Intact, Speech Normal, Motor Func Grossly Intact Skin: Present: Warm, Dry, Normal Color, Other (Left wrist and hand cellulitis as above). No: Rashes Psychiatric: Present: Alert, Oriented x 3, Normal Insight, Normal Concentration Medical Decision Making ED Course and Treatment: 03/30/17 16:24 EKG shows atrial fibrillation rate approximately 80 with poor R waves and nonspecific intraventricular conduction delay and no acute ST or T-wave changes 03/30/17 17:16 Lasix has been ordered for the elevated BNP. Solu-Medrol has been ordered for the left wrist swelling and elevated uric acid. Nonsteroidals have been held as we do not yet know the patient's creatinine. - Lab Interpretations Lab Results: 03/30/17 16:30 03/30/17 16:30 Lab Results 03/30/17 16:30: pO2 48, VBG pH 7.42, VBG pCO2 48.0, VBG HCO3 31.1 H, VBG Total CO2 32.6 H, VBG O2 Sat (Calc) 82.6 H, VBG Base Excess 5.5 H, VBG Potassium 4.5, Sodium 134.0, Chloride 98.0, Glucose 82, Lactate 1.7, FiO2 21.0, Venous Blood Potassium 4.5 03/30/17 16:30: PT 20.3 H, INR 1.76 H, APTT 34.8 03/30/17 16:30: WBC 8.3 D, RBC 4.79, Hgb 11.5 L, Hct 35.6 L, MCV 74.3 L, MCH 24.0 L, MCHC 32.3, RDW 26.3 H, Plt Count 186, MPV 9.4, Gran % 68.1 H, Lymph % ( Auto) 19.1 L, [place] % (Auto) 11.9 H, Eos % (Auto) 0.5 L, Baso % (Auto) 0.4, Gran # 5.64, Lymph # (Auto) 1.6, [place] # (Auto) 1.0 H, Eos # (Auto) 0.0, Baso # (Auto ) 0.03 03/30/17 16:30: Sodium 138, Chloride 96 L, Potassium 4.3, Carbon Dioxide 27, Anion Gap 19, BUN 31 H, Creatinine 1.3, Est GFR ( Amer) > 60, Est GFR ( Non-Af Amer) 55, Random Glucose 79, Uric Acid 10.6 H, Calcium 9.7, Total Bilirubin 1.3, AST 28, ALT 28, Alkaline Phosphatase 81, Lactate Dehydrogenase 411, Total Creatine Kinase 28 L, Troponin I 0.02, NT-Pro-B Natriuret Pep 4250 H , Total Protein 8.0, Albumin 4.1, Globulin 3.9, Albumin/Globulin Ratio 1.0 L - RAD Interpretation Radiology Orders: 03/30/17 16:18 CHEST PORTABLE [RAD] Stat Chest one view shows a right middle lobe pneumonia. 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 - Medication Orders Current Medication Orders: Aspirin (Ecotrin) 81 mg PO DAILY [facility] Carvedilol (Coreg) 25 mg PO BID [facility] Digoxin (Lanoxin) 0.125 mg PO DAILY [facility] Diltiazem HCl (Cardizem Cd) 180 mg PO DAILY [facility] Famotidine (Pepcid) 20 mg PO BID [facility] Furosemide (Lasix) 40 mg PO BID [facility] Gabapentin (Neurontin) 600 mg PO TID [facility] PRN Reason: Protocol Glipizide (Glucotrol Xl) 5 mg PO BID [facility] Sodium Chloride (Sodium Chloride 0.9%) 500 mls @ 500 mls/hr IV ONCE ONE Stop: 03/30/17 18:13 Azithromycin (Zithromax 500mg In Ns) 500 mg in 250 mls @ 167 mls/hr IVPB STAT STA PRN Reason: Protocol Stop: 03/30/17 19:33 Warfarin Sodium (Coumadin) 3 mg PO 1800 [facility] PRN Reason: Protocol Discontinued Medications Albuterol/Ipratropium (Duoneb 3 Mg/0.5 Mg (3 Ml) Ud) 3 ml IH ONCE STA Stop: 03/30/17 16:20 Last Admin: 03/30/17 16:24 Dose: 3 ml Furosemide (Lasix) 40 mg IVP ONCE ONE Stop: 03/30/17 17:15 Glipizide (Glucotrol Xl) 5 mg PO BID [facility] Ceftriaxone Sodium (Rocephin 1 Gram Ivpb) 1 gm in 100 mls @ 200 mls/hr IVPB STAT STA PRN Reason: Protocol Stop: 03/30/17 16:48 Last Admin: 03/30/17 16:40 Dose: 200 mls/hr eMAR Start Stop Document 03/30/17 16:40 MS (Rec: 03/30/17 16:42 [facility] [id number] Intravenous Solution Start Date 03/30/17 Start Time 16:42 End Date 03/30/17 End time 17:12 Total Infusion Time 30 Disposition/Present on Arrival - Present on Arrival Any Indicators Present on Arrival: No History of DVT/PE: No History of Uncontrolled Diabetes: No Urinary Catheter: No History of Decub. Ulcer: No History Surgical Site Infection Following: None - Disposition Have Diagnosis and Disposition been Completed?: Yes Diagnosis: CHF (congestive heart failure), Cellulitis, Gout, Pedal edema, Pneumonia Disposition: HOSPITALIZED Disposition Time: 17:38 Patient Plan: Admission, Telemetry Patient Problems: Current Active Problems Problem Status Onset CHF (congestive heart failure) Acute Cellulitis Acute Gout Acute Pedal edema Acute Condition: SERIOUS
[2017-03-30 16:51] LABS: VENOUS BLOOD GAS BASE EXCESS 5.5 mmol/L (0.0-2.0); VENOUS BLOOD GAS PO2 48 mm/Hg (30-55); VENOUS BLOOD PH 7.42 (7.32-7.43)
[2017-03-30 16:54] LABS: BASO # 0.03 K/mm3 (0.0-2.0); BASO % 0.4 % (0.0-3.0); EOS % 0.5 % (1.5-5.0); GRAN # 5.64 (1.4-6.5); GRAN % 68.1 % (50.0-68.0); HEMOGLOBIN 11.5 g/dL (14.0-18.0); LYMPH # 1.6 (1.2-3.4); LYMPH % 19.1 % (22.0-35.0); MEAN CELL VOLUME 74.3 fl (80.0-105.0); MEAN CORPUSCULAR HGB CONC 32.3 g/dl (31.0-37.0); MEAN PLATELET VOLUME 9.4 fl (7.0-11.0); MONO % 11.9 % (1.0-6.0); RBC 4.79 10^6/uL (3.5-6.1); RED CELL DISTRIBUTION WIDTH 26.3 % (11.5-14.5); WHITE BLOOD COUNT 8.3 10^3/ul (4.5-11.0)
[2017-03-30 17:01] LABS: INR 1.76 (0.93-1.08); PARTIAL THROMBOPLASTIN TIME 34.8 Seconds (25.1-36.5); PROTHROMBIN TIME 20.3 SECONDS (9.4-12.5); URIC ACID 10.6 mg/dL (3.5-8.5)
[2017-03-30 17:12] LABS: B-TYPE NATRIURETIC PEPTIDE 4250 pg/mL (0-450); TROPONIN I 0.02 ng/mL
[2017-03-30 17:14] LABS: ALBUMIN 4.1 g/dL (3.0-4.8); ALT/SGPT 28 U/L (7-56); AST/SGOT 28 U/L (17-59); BLOOD UREA NITROGEN 31 mg/dL (7-21); CALCIUM 9.7 mg/dL (8.4-10.5); GFR AFRICAN-AMERICAN > 60; GFR NON-AFRICAN AMERICAN 55
[2017-03-30] MEDS ORDERED: Sodium Chloride 0.9% 500 ML IV ONE (17:14)
--- NOTE | 2017-03-30 17:43 | RAD ---
HISTORY: Cough COMPARISON: 02/16/2017 FINDINGS: LUNGS: New right lower lobe infiltrate likely pneumonia. PLEURA: No significant pleural effusion identified, no pneumothorax apparent. CARDIOVASCULAR: No radiographic findings to suggest acute or significant cardiovascular disease. Position/ configuration of pacemaker device: Satisfactory. OSSEOUS STRUCTURES: No significant abnormalities. VISUALIZED UPPER ABDOMEN: Normal. OTHER FINDINGS: None. IMPRESSION: Upper lobe infiltrate consistent with acute pneumonia.
[2017-03-30] MEDS ORDERED: GlipiZIDE 10 mg SR Tab PO SCH (18:00)
[2017-03-30] MEDS ORDERED: Azithromycin 500MG/NS 250ml 500 MG/250 ML BAG IVPB STA (18:04)
[2017-03-30] MEDS: Digoxin 250 mcg (0.25 mg) Tab PO SCH ×2 (18:16→18:21)
[2017-03-30] MEDS: GlipiZIDE 5 mg SR Tab PO SCH (18:20)
[2017-03-30] MEDS: diltiaZEM 180 mg/24 Hours CD Cap PO SCH (18:20)
--- NOTE | 2017-03-30 21:57 | CARD ---
APPROVED REPORT EKG Measurement Heart [id number] <Conclusion> Atrial fibrillation Left axis deviation Possible Lateral infarct, age undetermined Abnormal ECG
[2017-03-31] MEDS ORDERED: MethylPREDNISolone Depo 40 mg/ml Inj IM ONE (06:48)
[2017-03-31] MEDS ORDERED: Bupivacaine 0.5% Inj(30mL) IJ ONE (06:48)
[2017-03-31] MEDS: Oxycodone/Acetaminophen 5/325 mg Tab PO PRN ×4 (09:44→23:06)
--- NOTE | 2017-03-31 11:45 | CP.PCM.CON ---
History of Present Illness - History of Present Illness History of Present Illness: 71 year old male with PMH of HTN, DM, CAD S/P CABG, peptic ulcer disease, atrial fibrillation, possible gout came in to [facility] complaining of left wrist and hand swelling, erythema and pain for the past day. He is also complaining of increased cough and some dyspnea on exertion for the past 2-3 days. He denies fever or chills, no nausea or vomiting, no sore throat, no body aches, no rhinorrhea, no chest pain, no abdominal pain, no headache or dizziness, no diarrhea, no dysuria. Infectious Diseases consult is requested to further evaluate and manage. Review of Systems - Review of Systems All systems: reviewed and no additional remarkable complaints except (as per HPI ) Past Patient History - Infectious Disease Hx of Infectious Diseases: None - Tetanus Immunizations Tetanus Immunization: Unknown - Past Social History Smoking Status: Heavy Smoker > 10 Cigarettes Daily - CARDIAC Hx Cardiac Disorders: Yes Hx Congestive Heart Failure: Yes Hx Hypertension: Yes Hx Internal Defibrillator: Yes - PULMONARY Hx Respiratory Disorders: No - NEUROLOGICAL Hx Neurological Disorder: Yes Hx Seizures: Yes - HEENT Hx HEENT Problems: No - RENAL Hx Chronic Kidney Disease: No - ENDOCRINE/METABOLIC Hx Endocrine Disorders: Yes Hx Diabetes Mellitus Type 2: Yes - HEMATOLOGICAL/ONCOLOGICAL Hx Blood Disorders: Yes Hx Cancer: Yes (bladder CA) - INTEGUMENTARY Hx Dermatological Problems: No - MUSCULOSKELETAL/RHEUMATOLOGICAL Hx Musculoskeletal Disorders: Yes Hx Arthritis: Yes Hx Falls: No Hx Gout: Yes - GASTROINTESTINAL Hx Gastrointestinal Disorders: No - GENITOURINARY/GYNECOLOGICAL Hx Genitourinary Disorders: No - PSYCHIATRIC Hx Psychophysiologic Disorder: No Hx Substance Use: No - SURGICAL HISTORY Hx Surgeries: Yes Hx Cardiac Catheterization: Yes Hx Coronary Stent: Yes - ANESTHESIA Hx Anesthesia: Yes Meds Allergies/Adverse Reactions: Allergies Allergy/AdvReac Type Severity Reaction Status Date / Time No Known Allergies Allergy Verified 02/16/17 16:28 - Medications Medications: Current Medications Aspirin (Ecotrin) 81 mg PO DAILY [facility] Carvedilol (Coreg) 25 mg PO BID [facility] Last Admin: 03/30/17 18:23 Dose: 25 mg Colchicine (Colocrys) 0.6 mg PO DAILY [facility] Digoxin (Lanoxin) 0.125 mg PO DAILY [facility] Last Admin: 03/30/17 18:21 Dose: 0.125 mg Diltiazem HCl (Cardizem Cd) 180 mg PO DAILY [facility] Last Admin: 03/30/17 18:20 Dose: 180 mg Famotidine (Pepcid) 20 mg PO BID [facility] Last Admin: 03/30/17 18:22 Dose: 20 mg Furosemide (Lasix) 40 mg PO BID [facility] Last Admin: 03/30/17 18:22 Dose: 40 mg Gabapentin (Neurontin) 600 mg PO TID [facility] PRN Reason: Protocol Last Admin: 03/30/17 18:22 Dose: 600 mg Glipizide (Glucotrol Xl) 5 mg PO BID [facility] Last Admin: 03/30/17 18:20 Dose: 5 mg Oxycodone/Acetaminophen (Percocet 5/325 Mg Tab) 1 tab PO Q4H PRN PRN Reason: Pain, moderate (4-7) Stop: 04/03/17 09:08 Warfarin Sodium (Coumadin) 4 mg PO 1800 [facility] PRN Reason: Protocol Physical Exam - Constitutional Appears: Non-toxic, Chronically Ill - Head Exam Head Exam: NORMAL INSPECTION - ENT Exam ENT Exam: Mucous Membranes Moist - Neck Exam Neck exam: Negative for: Meningismus - Respiratory Exam Respiratory Exam: Decreased Breath Sounds - Cardiovascular Exam Cardiovascular Exam: +S1, +S2 - GI/Abdominal Exam GI & Abdominal Exam: Soft. absent: Tenderness - Extremities Exam Additional comments: left hand with swelling Results - Vital Signs Recent Vital Signs: Last Vital Signs Temp 99.6 F 03/31/17 05:56 Pulse 63 03/31/17 05:56 Resp 20 03/31/17 05:56 BP 118/69 03/31/17 05:56 Pulse Ox 95 03/31/17 05:56 - Labs Result Diagrams: 03/30/17 16:30 03/30/17 16:30 Labs: Laboratory Results - last 24 hr 03/30/17 03/30/17 03/31/17 21:07 21:38 07:35 POC Glucose (mg/dL) 60 L 101 46 L Assessment & Plan - Assessment and Plan (Free Text) Plan: Assessment consider right sided HCAP left hand swelling consider gout R/O cellulitis HTN DM CAD S/P CABG peptic ulcer disease atrial fibrillation Plan started patient on Zyvox, Doxycycline and Cefepime pending blood, sputum cx, urine Legionella Ag monitor hand swelling Will follow clinically
[2017-03-31] MEDS: Linezolid 600 mg in D5W 300 ml 600 MG/300 ML BAG IVPB SCH ×2 (14:52→22:57)
[2017-03-31] MEDS ORDERED: Bupivacaine 0.5% Inj(30mL) ONE (16:24)
[2017-03-31] MEDS: diltiaZEM 180 mg/24 Hours CD Cap PO SCH (16:38)
[2017-03-31] MEDS: GlipiZIDE 5 mg SR Tab PO SCH ×2 (16:38→18:19)
--- NOTE | 2017-03-31 18:45 | CON ---
DATE: 03/31/2017 ORTHOPEDIC CONSULTATION REPORT HISTORY OF PRESENT ILLNESS: Patient is a 71-year-old male in room 374, bed 2, with exquisite left wrist pain along the radial aspect of the left non-dominant wrist for two days. He has an effusion of the left wrist . Left knee was swollen about several months ago where it was aspirated and gave him Depo-Medrol and Marcaine with good results. That aspiration of the left knee was done on 08/07/2016. Now, the left wrist is swollen, so we washed out the wrist, cleaned it, and numbed it up at the site of an injection with an 18-gauge needle, went into the radial aspect of the left wrist dorsally and got out less than 1 mL fluid, turbid, consistent with gout, but not purulent and we injected that area with Depo-Medrol and Marcaine to see how he does and I put him in a wrist splint along with the thumb on the left side to protect it from moving. The uric acid was elevated at 10.6 and his white count was within normal limits. We will see how he does with the Depo-Medrol injection. If need be, we can always go back and get more fluid if he has more fluid. Right now, I will treat him for inflammatory arthritis of the left wrist, suspect gout, and we will see how he responds to the Depo-Medrol injection at the left wrist. Michoacano Trinh DO MICHEAL
[2017-03-31] MEDS: Cefepime 1gm in NS 100ml 1 GM/100 ML BAG IVPB SCH ×3 (18:49→22:56)
--- NOTE | 2017-04-01 04:14 | HP ---
HISTORY OF PRESENT ILLNESS: This is a 71-year-old male who has a past medical history of diabetes type 2, coronary artery disease with CABG, peptic ulcer disease, and atrial fibrillation, coming to the hospital because of left hand swelling. The patient states that he started noticing the swelling over the past two to three days, it became significantly worse. He also has been developing a cough over the last few days. He says that he also has increase in swelling of the legs. He was at a rehab facility recently, was discharged about 5 days ago after staying there for about one month. He says the swelling of the leg has improved since he has been in the hospital. He also complains of redness in the left wrist area. He denies any fevers or chills. No abdominal pain or back pain. No dysuria, frequency, or nocturia. No headaches. He has no history of gout. REVIEW OF SYSTEMS: All review of symptoms are within normal limits except what is mentioned. ALLERGIES: NO KNOWN DRUG ALLERGIES. HOME MEDICATIONS: Reviewed on the MRI. PAST MEDICAL HISTORY: As above. Stomach cancer in 1997, and partial gastrectomy in 1997. FAMILY HISTORY: Noncontributory. SOCIAL HISTORY: He does smoke more than 10 cigarettes a day. He denies alcohol or drugs. PHYSICAL EXAMINATION: VITAL SIGNS: T-max is 97.8, pulse in the 40s to 50s, blood pressure 109/59, respirations 16, O2 saturation 98%. Height is 5 feet 11 inches, weight is 172 pounds. GENERAL: The patient lying in bed, uncomfortable, and in no acute distress. HEENT: Atraumatic and normocephalic. Anicteric sclerae. Moist mucosa. [place] conjunctivae. No oral lesions. NECK: No JVD, anterior and posterior adenopathy, thyromegaly, or bruits. CARDIOVASCULAR: S1 and S2 regular. No murmur, rubs, or gallop. LUNGS: Clear to auscultation bilaterally. No wheezes, rales, or rhonchi. ABDOMEN: Bowel sounds are positive. Soft, nontender and nondistended. No hepatosplenomegaly. No rebound and no guarding EXTREMITIES: No cyanosis, clubbing. In the left wrist, there is edema and erythema as well. NEUROLOGIC: No facial asymmetry. Tongue is midline. No uvula deviation. Power is 5/5 upper extremity and lower extremity. Sensation intact in upper extremity and lower extremity. PSYCHIATRIC: He is awake, alert and oriented x3. No anxiety or depression. He has normal affect. GENITOURINARY: No CVA tenderness. VASCULAR: 2+ pulses in the carotid pulses and pedal pulses. SKIN: No erythema or nodules SPINE: Shows normal curvature. LABORATORY DATA: White count of 8.3, hemoglobin 11.5, INR is 1.76. Chemistry shows sodium 138, creatinine is 1.3, alk phos of 81, proBNP is 40 to 50. Uric acid 10.6. EKG shows atrial fibrillation with a heart rate of 78, left axis deviation, QTC of 419. Chest x-ray done shows upper lobe infiltration consistent with acute pneumonia. ASSESSMENT: 1. Hospital-acquired pneumonia. 2. Acute gout, left wrist. 3. Diabetes type 2. 4. Hypertension. 5. Coronary artery disease, status post coronary artery bypass graft. 6. Atrial fibrillation, on Coumadin. 7. Peptic ulcer disease. 8. Left hand cellulitis. PLAN: The patient is going to be admitted to the hospital. The patient has left wrist swelling. He is going to be placed on IV antibiotics for his cellulitis. I also asked Dr. Trinh to see the patient from Orthopedics. He did, to tap the wrist. The patient's Coumadin is going to be increased from 3 mg to 4 mg because he is subtherapeutic. He is going to be on Cardizem. He is bradycardic. The patient will need to be seen by Cardiology as well. I will get Dr. August to see the patient. The patient was started on colchicine. Cardizem is going to be on hold because of the bradycardia. The patient had Glucotrol for his diabetes. He is going to continue with his digoxin for his atrial fibrillation. He is on Lasix twice a day. He is on Neurontin for his neuropathy. He is going to get OT. I did speak to the physical therapist about OT as well. Kike Holt MD
[2017-04-01] MEDS: Cefepime 1gm in NS 100ml 1 GM/100 ML BAG IVPB SCH ×3 (05:24→21:10)
[2017-04-01 07:43] LABS: HEMOGLOBIN 10.4 g/dL (14.0-18.0); MEAN CELL VOLUME 74.3 fl (80.0-105.0); MEAN CORPUSCULAR HEMOGLOBIN 23.3 pg (25.0-35.0); MEAN CORPUSCULAR HGB CONC 31.3 g/dl (31.0-37.0); PLATELET COUNT 181 10^3/uL (120.0-450.0); RBC 4.47 10^6/uL (3.5-6.1); RED CELL DISTRIBUTION WIDTH 25.7 % (11.5-14.5); WHITE BLOOD COUNT 7.4 10^3/ul (4.5-11.0)
[2017-04-01 07:52] LABS: INR 1.75 (0.93-1.08); PROTHROMBIN TIME 20.4 SECONDS (9.4-12.5)
[2017-04-01 07:57] LABS: ALB/GLOB RATIO 0.9 (1.1-1.8); ALBUMIN 3.4 g/dL (3.0-4.8); ALT/SGPT 29 U/L (7-56); AST/SGOT 29 U/L (17-59); BLOOD UREA NITROGEN 34 mg/dL (7-21); CALCIUM 9.2 mg/dL (8.4-10.5); GFR AFRICAN-AMERICAN > 60; GFR NON-AFRICAN AMERICAN 55
[2017-04-01] MEDS: Linezolid 600 mg in D5W 300 ml 600 MG/300 ML BAG IVPB SCH ×2 (11:08→21:09)
[2017-04-01] MEDS: GlipiZIDE 5 mg SR Tab PO SCH ×2 (11:09→18:44)
[2017-04-01] MEDS: Digoxin 250 mcg (0.25 mg) Tab PO SCH (11:10)
--- NOTE | 2017-04-01 16:44 | CON ---
DATE: 04/01/2017 INDICATIONS: Edema, CHF, pneumonia. HISTORY OF PRESENT ILLNESS: This is a 71-year-old man known from previous admissions including a recent admission in January, who returned home from rehab a few days ago and then began noticing cough, edema, and pain and swelling of his left wrist and hand. This got worse and he came to the emergency room on 03/30/2017. He also noted swelling of his leg, but no chest pain, shortness of breath, orthopnea, PND, syncope, presyncope, lightheadedness, dizziness, vertigo, palpitations, claudication, fever, chills, rigors, sweats, hemoptysis, abdominal pain, nausea, vomiting, diarrhea, constipation, melena. He was found to have an infiltrate on his chest x-ray. He was admitted to a telemetry bed. He has improved with treatment so far. This morning, he denies chest pain, shortness of breath and notes that his lower extremity edema has improved. His wrist has been aspirated by Dr. Trinh. He is being treated for gout and cellulitis. PAST MEDICAL HISTORY: Notable for coronary artery disease,remote myocardial infarction, remote coronary intervention, severe LV dysfunction based on echocardiogram last year which also noted moderate tricuspid regurgitation and [id number] pulmonary hypertension. He has chronic AFib, on Coumadin therapy; CHF, a defibrillator implanted which is followed at [facility]. He has diabetes, peripheral neuropathy, diabetic foot, amputation of toes on the right foot in the past, peptic ulcer disease, gastric cancer with remote resection, and cerebrovascular disease. There is no history of rheumatic fever, stroke, or TIA. CURRENT MEDICATIONS: Include diltiazem, Coreg, warfarin, digoxin, aspirin, glipizide, Lasix, gabapentin, and Pepcid. ALLERGIES: NO KNOWN MEDICATION ALLERGIES. SOCIAL HISTORY: He is a smoker. He has been a drinker, but he has been in rehab for the last month or so. He is ambulatory. FAMILY HISTORY: Noncontributory. REVIEW OF SYSTEMS: A 10-point review of systems is otherwise unremarkable except as noted above. PHYSICAL EXAMINATION: GENERAL: He is a well-developed man, in no acute distress. VITAL SIGNS: Notable for atrial fibrillation 52 to 61 beats minute. He is afebrile. Blood pressure 120/61, respirations 16 to 20, O2 sat 97% to 98% on nasal cannula. HEENT: Reveals no neck vein distention, thyromegaly, or carotid bruit. Mucous membranes moist. Conjunctivae pink. NECK: Supple. LUNGS: Lung caal, a few rhonchi, especially at the right base. HEART: Reveals normal first and second heart sounds. There is a systolic murmur along the left sternal border. ABDOMEN: Soft. Bowel sounds present. No mass, organomegaly, tenderness, rebound, or guarding. No CVA tenderness. No palpable abdominal aortic aneurysm. EXTREMITIES: Reveal mild lower extremity edema. His right wrist is in a splint. NEUROLOGIC: Awake, alert, and oriented. PSYCHIATRIC: Normal as to mood and affect. SKIN: Warm and dry. Cellulitis of the left wrist has been noted. LABORATORY AND IMAGING: A chest x-ray shows a right lower lobe infiltrate. EKG shows atrial fibrillation, left axis deviation, possible lateral wall infarct, nonspecific ST wave changes. White count normal. Platelet count normal. Hemoglobin 10.4, hematocrit 33.2. PT 20.4, INR 1.75, PTT 34.8. Blood gases are noted. Chemistry: BUN and creatinine unremarkable. Blood sugars in the 117 to 340 range. LFTs unremarkable. Procalcitonin low at 0.11. IMPRESSION: Prashant Tolentino is a 71-year-old man with admission for wrist symptoms, possibly acute gout and cellulitis, edema, and infiltrate on chest x-ray consistent with pneumonia, an extensive cardiac history with severe left ventricular dysfunction, chronic atrial fibrillation, on Coumadin with subtherapeutic INR on admission and implantable cardioverter defibrillator implant. He has Cardiology followup with Dr. Guevara in [place] and implantable cardioverter defibrillator followup at [facility]. He claims to be compliant with both of these followups. At this time, I agree with current plans. He is a bit bradycardiac, so diltiazem is being held. I will check a digoxin level. We will continue Coreg and continue to monitor telemetry. We will monitor INR daily. We will continue aspirin and Lasix. He is getting cultured. He is getting antibiotics. He is being seen by Orthopedics and Infectious Disease. We will monitor inputs and outputs. Check stool for occult blood. Review his old records and echocardiogram. He can be out of bed to chair. Warfarin has been increased to 4 mg daily. I will follow along with you. I will make additional recommendations based on his clinical course. Bernardo August MD MICHEAL
--- NOTE | 2017-04-01 18:22 | CP.PCM.PN ---
Subjective - Date & Time of Evaluation Date of Evaluation: 04/01/17 Time of Evaluation: 10:50 - Subjective Subjective: Comfortable, less pain in the left hand, no fevers. Objective - Vital Signs/Intake and Output Vital Signs (last 24 hours): Temp Pulse Resp BP Pulse Ox 97.6 F 52 L 20 120/61 98 04/01/17 06:00 04/01/17 06:00 04/01/17 06:00 04/01/17 06:00 04/01/17 06:00 Intake and Output: 04/01/17 04/01/17 06:59 18:59 Intake Total 1080 Output Total 2300 Balance -1220 - Medications Medications: Current Medications Aspirin (Ecotrin) 81 mg PO DAILY [facility] Last Admin: 03/31/17 09:45 Dose: 81 mg Carvedilol (Coreg) 25 mg PO BID [facility] Last Admin: 03/31/17 18:48 Dose: 25 mg Colchicine (Colocrys) 0.6 mg PO DAILY [facility] Digoxin (Lanoxin) 0.125 mg PO DAILY [facility] Last Admin: 03/30/17 18:21 Dose: 0.125 mg Diltiazem HCl (Cardizem Cd) 180 mg PO DAILY [facility] Last Admin: 03/31/17 16:38 Dose: Not Given Doxycycline Hyclate (Doryx) 100 mg PO Q12 [facility] PRN Reason: Protocol Last Admin: 03/31/17 22:57 Dose: 100 mg Famotidine (Pepcid) 20 mg PO BID [facility] Last Admin: 03/31/17 19:35 Dose: 20 mg Furosemide (Lasix) 40 mg PO BID [facility] Last Admin: 03/31/17 18:19 Dose: 40 mg Gabapentin (Neurontin) 600 mg PO TID [facility] PRN Reason: Protocol Last Admin: 03/31/17 19:53 Dose: 600 mg Glipizide (Glucotrol Xl) 5 mg PO BID [facility] Last Admin: 03/31/17 18:19 Dose: 5 mg Cefepime HCl (Maxipime 1gm) 1 gm in 100 mls @ 100 mls/hr IVPB Q8 [facility] PRN Reason: Protocol Last Admin: 04/01/17 05:24 Dose: 100 mls/hr Linezolid (Zyvox 600mg/300ml D5w) 600 mg in 300 mls @ 200 mls/hr IVPB Q12 [facility] PRN Reason: Protocol Stop: 04/07/17 10:01 Last Admin: 03/31/17 22:57 Dose: 200 mls/hr Oxycodone/Acetaminophen (Percocet 5/325 Mg Tab) 1 tab PO Q4H PRN PRN Reason: Pain, moderate (4-7) Stop: 04/03/17 09:08 Last Admin: 03/31/17 23:06 Dose: 1 tab Warfarin Sodium (Coumadin) 4 mg PO 1800 [facility] PRN Reason: Protocol Last Admin: 03/31/17 18:46 Dose: 4 mg - Labs Labs: 04/01/17 07:00 04/01/17 07:00 PT 20.4 SECONDS (9.4-12.5) H 04/01/17 07:00 INR 1.75 (0.93-1.08) H 04/01/17 07:00 APTT 34.8 Seconds (25.1-36.5) 03/30/17 16:30 - Constitutional Appears: Non-toxic, Chronically Ill - Head Exam Head Exam: NORMAL INSPECTION - Neck Exam Neck Exam: absent: Meningismus - Respiratory Exam Respiratory Exam: Decreased Breath Sounds - Cardiovascular Exam Cardiovascular Exam: +S1, +S2 - GI/Abdominal Exam GI & Abdominal Exam: Soft. absent: Tenderness Assessment and Plan - Assessment and Plan (Free Text) Plan: Assessment consider right sided HCAP left hand swelling consider gout R/O cellulitis HTN DM CAD S/P CABG peptic ulcer disease atrial fibrillation Plan continue Zyvox, Doxycycline and Cefepime day 2; blood cx are negative, PCT is only 0.11 monitor hand swelling Will follow clinically
[2017-04-01] MEDS: Oxycodone/Acetaminophen 5/325 mg Tab PO PRN (20:42)
--- NOTE | 2017-04-01 21:20 | PN ---
DATE: SUBJECTIVE: Patient has no complaints of any chest pain or shortness of breath. No headaches. He states the swelling in the left hand is improving. PHYSICAL EXAMINATION: VITAL SIGNS: Temperature is 97.5, pulse of 54, blood pressure 118/83, respirations 12. GENERAL: The patient is lying in bed, flat, comfortable. HEENT: No oral lesion. Anicteric sclerae. Moist mucosa. NECK: No JVD, adenopathy, or thyromegaly. CARDIOVASCULAR: S1 and S2, regular. No murmurs, rubs, or gallops. LUNGS: Clear to auscultation bilaterally. No wheeze, rales, or rhonchi. ABDOMEN: Bowel sounds are positive, soft, nontender and nondistended. EXTREMITIES: no cyanosis, clubbing or edema. LABORATORY DATA: Creatinine is 1.3. ASSESSMENT: 1. Left wrist acute gout. 2. Hospital-acquired pneumonia. 3. Diabetes type 2. 4. Hypertension. 5. Asymptomatic bradycardia. 6. Coronary artery disease, status post coronary artery bypass grafting. 7. Atrial fibrillation, on Coumadin. 8. Peptic ulcer disease. 9. Left hand cellulitis. PLAN: The patient's blood cultures are negative. He says his swelling is improving. He is on Coumadin for his anticoagulation, his INR is 1.75. I increased his Coumadin dosage yesterday. He is on colchicine for his gout attack. He is receiving carvedilol for his coronary artery disease. He is on aspirin. I have placed a hold on his Cardizem because of bradycardia. He is on Lasix twice a day. He is receiving antibiotics with cefepime. He is on Neurontin for his neuropathy. He is on Percocet for pain. I will change his gabapentin for 600 mg twice a day and 1200 mg in the evening. Kike Holt MD
[2017-04-02] MEDS: Oxycodone/Acetaminophen 5/325 mg Tab PO PRN ×2 (01:33→10:48)
[2017-04-02] MEDS: Cefepime 1gm in NS 100ml 1 GM/100 ML BAG IVPB SCH ×4 (05:42→23:00)
[2017-04-02 07:42] LABS: INR 1.96 (0.93-1.08); PROTHROMBIN TIME 22.8 SECONDS (9.4-12.5)
--- NOTE | 2017-04-02 08:25 | CP.PCM.PN ---
Subjective - Date & Time of Evaluation Date of Evaluation: 04/02/17 Time of Evaluation: 07:00 - Subjective Subjective: Stable on 3R. No chest pain or SOB. hand sxs and leg edema improved. V/S noted. AF 50 - 60's PE: Lungs: rhonchi right base Cor>; irreg S1S2 Abd.: soft Ext. No edema LE's, left hand Neuro.: alert Labs: INR = 1.96, Dig.: 0.8 CXR 04/01 pending. RLL infiltrate BC X2 NG at 48 hrs. Objective - Vital Signs/Intake and Output Vital Signs (last 24 hours): Temp Pulse Resp BP Pulse Ox 97.6 F 58 L 20 146/70 97 04/02/17 05:26 04/02/17 05:26 04/02/17 05:26 04/02/17 05:26 04/02/17 05:26 Intake and Output: 04/02/17 04/02/17 06:59 18:59 Intake Total 480 Balance 480 - Medications Medications: Current Medications Aspirin (Ecotrin) 81 mg PO DAILY [facility] Last Admin: 04/01/17 11:09 Dose: 81 mg Carvedilol (Coreg) 25 mg PO BID [facility] Last Admin: 04/01/17 18:44 Dose: 25 mg Colchicine (Colocrys) 0.6 mg PO DAILY [facility] Last Admin: 04/01/17 11:09 Dose: 0.6 mg Digoxin (Lanoxin) 0.125 mg PO DAILY [facility] Last Admin: 04/01/17 11:10 Dose: 0.125 mg Diltiazem HCl (Cardizem Cd) 180 mg PO DAILY [facility] Last Admin: 03/31/17 16:38 Dose: Not Given Doxycycline Hyclate (Doryx) 100 mg PO Q12 [facility] PRN Reason: Protocol Last Admin: 04/01/17 21:06 Dose: 100 mg Famotidine (Pepcid) 20 mg PO BID [facility] Last Admin: 04/01/17 18:44 Dose: 20 mg Furosemide (Lasix) 40 mg PO BID [facility] Last Admin: 04/01/17 18:44 Dose: 40 mg Gabapentin (Neurontin) 1,200 mg PO HS [facility] PRN Reason: Protocol Last Admin: 04/01/17 21:08 Dose: 1,200 mg Gabapentin (Neurontin) 600 mg PO BID [facility] PRN Reason: Protocol Last Admin: 04/01/17 18:43 Dose: 600 mg Glipizide (Glucotrol Xl) 5 mg PO BID [facility] Last Admin: 04/01/17 18:44 Dose: 5 mg Cefepime HCl (Maxipime 1gm) 1 gm in 100 mls @ 100 mls/hr IVPB Q8 [facility] PRN Reason: Protocol Last Admin: 04/02/17 05:42 Dose: 100 mls/hr Linezolid (Zyvox 600mg/300ml D5w) 600 mg in 300 mls @ 200 mls/hr IVPB Q12 [facility] PRN Reason: Protocol Stop: 04/07/17 10:01 Last Admin: 04/01/17 21:09 Dose: 200 mls/hr Oxycodone/Acetaminophen (Percocet 5/325 Mg Tab) 1 tab PO Q4H PRN PRN Reason: Pain, moderate (4-7) Stop: 04/03/17 09:08 Last Admin: 04/02/17 01:33 Dose: 1 tab Warfarin Sodium (Coumadin) 4 mg PO 1800 [facility] PRN Reason: Protocol Last Admin: 04/01/17 18:44 Dose: 4 mg - Labs Labs: 04/01/17 07:00 04/01/17 07:00 PT 22.8 SECONDS (9.4-12.5) H 04/02/17 07:00 INR 1.96 (0.93-1.08) H 04/02/17 07:00 APTT 34.8 Seconds (25.1-36.5) 03/30/17 16:30 Assessment and Plan - Assessment and Plan (Free Text) Assessment: Left hand/wrist pain and swelling LE edema Cough Pneumonia CAD/CO/PCI/Severe LVD CHF ICD AF Echo: sev. LVD, Mod. TR, Mod./Sev. PH Diabetes PN Diabetic foot Traumatic amp toes left foot PUD Gastric carcinoma with resection CVD Plan: As per ID, Ortho and Dr. Holt Continue cardiac meds and hold cardizem for now. AB OOB Daily INR's
[2017-04-02] MEDS: Digoxin 250 mcg (0.25 mg) Tab PO SCH (10:09)
[2017-04-02] MEDS: GlipiZIDE 5 mg SR Tab PO SCH ×2 (10:19→18:20)
--- NOTE | 2017-04-02 11:14 | PN ---
DATE: SUBJECTIVE: Patient has no complaints of any chest pain. No shortness of breath. No headaches. He states his wrist is improving. PHYSICAL EXAMINATION VITAL SIGNS: Temperature is 97.6, pulse of 58, blood pressure 146/70, respirations 20. GENERAL: The patient is lying in bed, flat, comfortable. HEENT: No oral lesion. Anicteric sclerae. Moist mucosa. NECK: No JVD, adenopathy, or thyromegaly. CARDIOVASCULAR: S1 and S2, regular. No murmurs, rubs, or gallops. LUNGS: Clear to auscultation bilaterally. No wheeze, rales, or rhonchi. ABDOMEN: Bowel sounds are positive. Soft, nontender and nondistended. EXTREMITIES: No cyanosis, clubbing or edema. In the left wrist, there is mild swelling in the wrist. Erythema has improved. LABORATORY DATA: White count is 7.4, hemiglobin 10.4, creatinine is 1.3. ASSESSMENT: 1. Left wrist acute gout attack 2. Hospital-acquired pneumonia. 3. Diabetes type 2. 4. Hypertension. 5. Asymptomatic bradycardia. 6. Coronary artery disease, status post coronary artery bypass graft. 7. Atrial fibrillation, on Coumadin. 8. Peptic ulcer disease. 9. Left hand cellulitis. PLAN: Patient is currently on colchicine for gout. For his palpitation, going to continue on carvedilol. The patient is on aspirin daily. He is on glipizide for diabetes . He is on digoxin. He is on cefepime for antibiotic. He is on Neurontin for his neuropathy. He is being followed by . Blood cultures have been negative. The patient is being seen by Dr. Joya from Infectious Disease and also by Dr. August from Cardiology. The patient was having asymptomatic bradycardia. The patient's Cardizem is being held. Kike Holt MD
--- NOTE | 2017-04-02 12:27 | RAD ---
HISTORY: rule out pneumonia COMPARISON: Comparison is made with 03/30/2017 FINDINGS: LUNGS: Interval decrease in the size of right infrahilar opacity and consolidation since the previous exam may represent resolving pneumonia. Otherwise no significant interval change in the lungs. PLEURA: No significant pleural effusion identified, no pneumothorax apparent. CARDIOVASCULAR: Normal. OSSEOUS STRUCTURES: No significant abnormalities. VISUALIZED UPPER ABDOMEN: Normal. OTHER FINDINGS: None. IMPRESSION: Interval improvement in the right lower lung opacity since the previous exam suggestive of resolving pneumonia.
--- NOTE | 2017-04-02 17:29 | CP.PCM.PN ---
Subjective - Date & Time of Evaluation Date of Evaluation: 04/02/17 Time of Evaluation: 10:50 - Subjective Subjective: Comfortable, no fevers, no more pain in the left hand, cough is better. Objective - Vital Signs/Intake and Output Vital Signs (last 24 hours): Temp Pulse Resp BP Pulse Ox 97.6 F 58 L 20 146/70 97 04/02/17 05:26 04/02/17 05:26 04/02/17 05:26 04/02/17 05:26 04/02/17 05:26 Intake and Output: 04/02/17 04/02/17 06:59 18:59 Intake Total 480 Balance 480 - Medications Medications: Current Medications Aspirin (Ecotrin) 81 mg PO DAILY [facility] Last Admin: 04/01/17 11:09 Dose: 81 mg Carvedilol (Coreg) 25 mg PO BID [facility] Last Admin: 04/01/17 18:44 Dose: 25 mg Colchicine (Colocrys) 0.6 mg PO DAILY [facility] Last Admin: 04/01/17 11:09 Dose: 0.6 mg Digoxin (Lanoxin) 0.125 mg PO DAILY [facility] Last Admin: 04/01/17 11:10 Dose: 0.125 mg Diltiazem HCl (Cardizem Cd) 180 mg PO DAILY [facility] Last Admin: 03/31/17 16:38 Dose: Not Given Doxycycline Hyclate (Doryx) 100 mg PO Q12 [facility] PRN Reason: Protocol Last Admin: 04/01/17 21:06 Dose: 100 mg Famotidine (Pepcid) 20 mg PO BID [facility] Last Admin: 04/01/17 18:44 Dose: 20 mg Furosemide (Lasix) 40 mg PO BID [facility] Last Admin: 04/01/17 18:44 Dose: 40 mg Gabapentin (Neurontin) 1,200 mg PO HS [facility] PRN Reason: Protocol Last Admin: 04/01/17 21:08 Dose: 1,200 mg Gabapentin (Neurontin) 600 mg PO BID [facility] PRN Reason: Protocol Last Admin: 04/01/17 18:43 Dose: 600 mg Glipizide (Glucotrol Xl) 5 mg PO BID [facility] Last Admin: 04/01/17 18:44 Dose: 5 mg Cefepime HCl (Maxipime 1gm) 1 gm in 100 mls @ 100 mls/hr IVPB Q8 [facility] PRN Reason: Protocol Last Admin: 04/02/17 05:42 Dose: 100 mls/hr Oxycodone/Acetaminophen (Percocet 5/325 Mg Tab) 1 tab PO Q4H PRN PRN Reason: Pain, moderate (4-7) Stop: 04/03/17 09:08 Last Admin: 04/02/17 01:33 Dose: 1 tab Warfarin Sodium (Coumadin) 4 mg PO 1800 [facility] PRN Reason: Protocol Last Admin: 04/01/17 18:44 Dose: 4 mg - Labs Labs: 04/01/17 07:00 04/01/17 07:00 PT 22.8 SECONDS (9.4-12.5) H 04/02/17 07:00 INR 1.96 (0.93-1.08) H 04/02/17 07:00 APTT 34.8 Seconds (25.1-36.5) 03/30/17 16:30 - Constitutional Appears: Non-toxic - Head Exam Head Exam: NORMAL INSPECTION - ENT Exam ENT Exam: Mucous Membranes Moist - Neck Exam Neck Exam: absent: Meningismus - Respiratory Exam Respiratory Exam: Decreased Breath Sounds - Cardiovascular Exam Cardiovascular Exam: +S1, +S2 - GI/Abdominal Exam GI & Abdominal Exam: Soft. absent: Tenderness Assessment and Plan - Assessment and Plan (Free Text) Plan: Assessment consider right sided HCAP left hand swelling consider gout HTN DM CAD S/P CABG peptic ulcer disease atrial fibrillation Plan continue Doxycycline and Cefepime day 3; blood cx are negative, PCT is only 0.11 - can switch to PO doxycycline by tomorrow Will follow clinically
[2017-04-03 03:51] VITALS: RESP 19
[2017-04-03 06:07] VITALS: TEMP 97; O2SAT 96
[2017-04-03] MEDS: Cefepime 1gm in NS 100ml 1 GM/100 ML BAG IVPB SCH (06:39)
[2017-04-03 08:26] LABS: INR 2.23 (0.93-1.08); PROTHROMBIN TIME 26.1 SECONDS (9.4-12.5)
[2017-04-03] MEDS: diltiaZEM 180 mg/24 Hours CD Cap PO SCH (09:50)
[2017-04-03] MEDS: Digoxin 250 mcg (0.25 mg) Tab PO SCH (09:50)
[2017-04-03] MEDS: GlipiZIDE 5 mg SR Tab PO SCH (09:53)
[2017-04-03 09:58] VITALS: BP 124/75; PULSE 68
--- NOTE | 2017-04-03 11:22 | PN ---
DATE: 04/03/2017 SUBJECTIVE: The patient is seen lying in bed on 3R. He is fairly comfortable. His hand cellulitis is improved. Plans are for discharge later today. CURRENT MEDICATIONS: Include colchicine, carvedilol 25 mg b.i.d., Coumadin, doxycycline, Ecotrin, Glucotrol XL 5 mg b.i.d., digoxin 0.125 mg daily, Lasix 40 mg b.i.d., Maxipime, Neurontin and Pepcid. OBJECTIVE: GENERAL: He is a middle-aged man, appears comfortable at rest. VITAL SIGNS: His blood pressure is 122/76 with a pulse of 65 in atrial fibrillation, respirations are 14. He is afebrile. HEENT: No JVD. CHEST: Bilateral scattered rhonchi heard. HEART: PMI displaced laterally with soft tones noted. Rhythm is irregularly irregular. ABDOMEN: Soft, nontender. Normoactive bowel sounds. EXTREMITIES: No edema. Left hand cellulitis and edema are improved. DIAGNOSTIC DATA: No blood work pending from this morning. IMPRESSION: 1. Hand cellulitis, clinically improved. 2. Peripheral edema, also improved. 3. Severe left ventricular dysfunction. 4. Coronary artery disease, status post remote myocardial infarction and percutaneous coronary intervention. 5. Rest of problems as noted. RECOMMENDATIONS: His current medications should be continued for now. Diltiazem should be withheld given his LV dysfunction unless a contraindication exists, consideration should be given to addition of RUTHIE inhibitor and angiotensin receptor dianne. He is tentatively scheduled for defibrillator implant at [facility] later this month. 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 Continue sodium and fluid restriction recommended. Chuy Spaulding MD
--- NOTE | 2017-04-03 15:55 | PN ---
DATE: 04/03/2017 SUBJECTIVE: The patient is a 71-year-old male who had come into the hospital and was found to have acute gout attack. The patient's gout attack has improved. He is able to ambulate. His breathing is better. He has no complaints of any chest pain or shortness of breath. No headaches or dizziness. He is refusing his medication, IV antibiotics. He is also refusing IV Hep-Lock placement. The patient's nurse had tried multiple times. The patient will be switched over to p.o. antibiotics. The patient has no complaints of any headaches or dizziness. PHYSICAL EXAMINATION: VITAL SIGNS: Temperature is 97.0, pulse of 55, blood pressure 122/75, and respirations is 19. GENERAL: The patient is lying in bed, flat, comfortable. HEENT: No oral lesion. Anicteric sclerae. Moist mucosa. NECK: No JVD, adenopathy, or thyromegaly. CARDIOVASCULAR: S1 and S2, regular. No murmurs, rubs, or gallops. LUNGS: Clear to auscultation bilaterally. No wheeze, rales, or rhonchi. ABDOMEN: Bowel sounds are positive, soft, nontender and nondistended. EXTREMITIES: No cyanosis, clubbing or edema. ASSESSMENT: 1. Acute gout in the left wrist. 2. Hospital-acquired pneumonia. 3. Diabetes type 2. 4. Hypertension. 5. Asymptomatic bradycardia. 6. Coronary artery disease, status post coronary artery bypass grafting. 7. Atrial fibrillation, on Coumadin. 8. Peptic ulcer disease. 9. Left hand cellulitis. PLAN: The patient is currently comfortable. He is on colchicine. I will continue his colchicine as an outpatient. He is on Cardizem. He is going to be on aspirin daily. He is on Neurontin for his neuropathy. Follow up with primary care doctor in 1 to 2 weeks. CONDITION: Stable. ACTIVITY: Increase as tolerated. Kiek Holt MD
--- NOTE | 2017-04-03 23:39 | PN ---
DATE: 04/03/2017 SUBJECTIVE: Patient is in bed, in no acute distress, nontoxic. PHYSICAL EXAMINATION: VITAL SIGNS: Temperature is 97, blood pressure is 120/70, respiratory rate of 16. HEENT: Unremarkable. NECK: Supple. LUNGS: Have decreased breath sounds. HEART: Normal S1 and S2. ABDOMEN: Soft. LABORATORY EXAMINATION: Reveals a white count of 7.4, hemoglobin of 10. BUN of 34, creatinine of 1.3. Blood cultures are no growth. ASSESSMENT AND PLAN: A 71-year-old male with right-sided healthcare-acquired pneumonia, left hand swelling and considerable gout, hypertension, diabetes, on doxy and cefepime - day #4, and switched to p.o. doxycycline. Patient was seen early this morning in room 374, bed 2. Nathen Long MD
== END 2017-04-03 10:53 | disposition home or self-care (01) | DRG 553 ==
LOC: ED 15:38 → ERH 17:35 → 3RSO 21:11
PROVIDERS: ADMIT Internal Medicine Nephrology; ATTEND Internal Medicine Nephrology
PROC: 3E0U33Z Introduction of Anti-inflammatory into Joints, Percutaneous Approach (ICD-10-PCS; principal; 2017-03-31)
PROC: 3E0U3BZ Introduction of Anesthetic Agent into Joints, Percutaneous Approach (ICD-10-PCS; 2017-03-31)
DX: M10.9 Gout, unspecified (principal); J18.9 Pneumonia, unspecified organism; E11.42 Type 2 diabetes mellitus with diabetic polyneuropathy; I11.0 Hypertensive heart disease with heart failure; I07.1 Rheumatic tricuspid insufficiency; I50.9 Heart failure, unspecified; I27.20 Pulmonary hypertension, unspecified; L03.114 Cellulitis of left upper limb; M06.4 Inflammatory polyarthropathy; Y95 Nosocomial condition; K27.9 Peptic ulcer, site unspecified, unspecified as acute or chronic, without hemorrhage or perforation; I67.9 Cerebrovascular disease, unspecified; F17.210 Nicotine dependence, cigarettes, uncomplicated; I25.10 Atherosclerotic heart disease of native coronary artery without angina pectoris; I25.2 Old myocardial infarction; I48.2 Chronic atrial fibrillation; Z79.01 Long term (current) use of anticoagulants; Z79.82 Long term (current) use of aspirin; Z85.028 Personal history of other malignant neoplasm of stomach; Z85.51 Personal history of malignant neoplasm of bladder; Z87.11 Personal history of peptic ulcer disease; Z90.3 Acquired absence of stomach [part of]; Z95.1 Presence of aortocoronary bypass graft; Z95.5 Presence of coronary angioplasty implant and graft; Z89.421 Acquired absence of other right toe(s); R00.1 Bradycardia, unspecified

== ENCOUNTER 2017-04-05 21:19 | Emergency (ER) | payer MEDICARE ==
[2017-04-05 21:19] VITALS: PULSE 68
[2017-04-05 21:27] VITALS: BMI 22.3
[2017-04-05 21:48] VITALS: BP 114/63; PULSE 82; RESP 20; TEMP 98.1; O2SAT 97
[2017-04-05] MEDS ORDERED: Oxycodone/Acetaminophen 5/325 mg Tab PO STA (22:00)
--- NOTE | 2017-04-05 22:22 | ED PDOC ---
Arrival/HPI - General Chief Complaint: Upper Extremity Problem/Injury Time Seen by Provider: 04/05/17 21:44 Historian: Patient - History of Present Illness Narrative History of Present Illness (Text): 04/05/17 22:21 71 year old male, whose past medical history includes congestive heart failure, pleural effusion, atrial fibrillation, diabetes, hypertension, and lower extremity edema, presents to the emergency department complaining bilateral hand pain. Patient was recently discharged from hospital 2 days ago for admission for gout, pneumonia, and cellulitis. Patient is current on colchine and Augmentin. Patient requests pain medication. Friend reports that he called PMD Dr. Whalen today but the phone was busy so he came to ED. He also reports he was unable to follow up with Dr. Whalen. Patient denies any fever, chills, nausea, vomiting, diarrhea, or any other complaints. 04/05/17 22:54 Symptom Onset: Gradual Symptom Course: Unchanged Activities at Onset: Light Context: Home Past Medical History - Provider Review Nursing Documentation Reviewed: Yes - Infectious Disease Hx of Infectious Diseases: None - Tetanus Immunization Tetanus Immunization: Unknown - Cardiac Hx Cardiac Disorders: Yes (CAD, S/P CABG, Afib) - Pulmonary Hx Respiratory Disorders: No - Neurological Hx Neurological Disorder: Yes Hx Seizures: Yes - HEENT Hx HEENT Disorder: No - Renal Hx Renal Disorder: No - Endocrine/Metabolic Hx Diabetes Mellitus Type 2: Yes - Hematological/Oncological Hx Blood Disorders: Yes Hx Cancer: Yes (bladder CA) - Integumentary Hx Dermatological Disorder: No - Musculoskeletal/Rheumatological Hx Arthritis: Yes - Gastrointestinal Hx Gastrointestinal Disorders: No - Genitourinary/Gynecological Hx Genitourinary Disorders: No - Psychiatric Hx Psychophysiologic Disorder: No Hx Substance Use: No - Surgical History Hx Cardiac Catheterization: Yes Hx Coronary Stent: Yes - Anesthesia Hx Anesthesia: Yes Hx Anesthesia Reactions: No Hx Malignant Hyperthermia: No - Suicidal Assessment Feels Threatened In Home Enviroment: No Family/Social History - Physician Review Nursing Documentation Reviewed: Yes Family/Social History: No Known Family HX Smoking Status: Heavy Smoker > 10 Cigarettes Daily Hx Alcohol Use: No Hx Substance Use: No Hx Substance Use Treatment: No Allergies/Home Meds Allergies/Adverse Reactions: Allergies No Known Allergies Allergy (Verified 02/16/17 16:28) Home Medications: Home Meds Medication Instructions Recorded Confirmed Digoxin 125 mcg PO DAILY 02/24/12 04/05/17 Glipizide [Glucotrol Xl] 5 mg PO BID 02/24/12 04/05/17 Carvedilol [Coreg] 25 mg PO BID 11/08/15 04/05/17 Famotidine [Pepcid] 20 mg PO BID 11/08/15 04/05/17 Gabapentin [Neurontin] 600 mg PO TID 11/08/15 04/05/17 [id number] CD [Cardizem CD] 180 mg PO DAILY 11/08/15 04/05/17 Aspirin [Ecotrin] 81 mg PO DAILY 11/12/15 04/05/17 Warfarin [Coumadin] 3 mg PO 1800 09/07/16 04/05/17 Amoxicillin/Clavulanate [Augmentin 1 tab PO BID 04/05/17 04/05/17 875 MG-125 MG Tab] Colchicine [Colcrys] 0.6 mg PO DAILY 04/05/17 04/05/17 Review of Systems - Physician Review All systems were reviewed & negative as marked: Yes - Review of Systems Constitutional: absent: Fevers, Other (Chills) Respiratory: absent: SOB, Cough, Sputum, Wheezing Cardiovascular: absent: Chest Pain Gastrointestinal: absent: Abdominal Pain, Constipation, Diarrhea, Nausea, Vomiting Musculoskeletal: Arthralgias, Other (Bilaterial hand pain) Neurological: absent: Headache, Dizziness, Focal Weakness Physical Exam Vital Signs Reviewed: Yes Vital Signs Temp Pulse Resp BP Pulse Ox 04/05/17 21:19 98.1 F 82 20 114/63 97 Temperature: Afebrile Blood Pressure: Normal Pulse: Regular Respiratory Rate: Normal Appearance: Positive for: Well-Appearing, Non-Toxic, Comfortable Pain Distress: None Mental Status: Positive for: Alert and Oriented X 3 - Systems Exam Head: Present: Atraumatic, Normocephalic Pupils: Present: PERRL Extroacular Muscles: Present: EOMI Conjunctiva: Present: Normal Mouth: Present: Moist Mucous Membranes Neck: Present: Normal Range of Motion Respiratory/Chest: Present: Clear to Auscultation, Good Air Exchange. No: Respiratory Distress, Accessory Muscle Use Cardiovascular: Present: Regular Rate and Rhythm, Normal S1, S2. No: Murmurs Abdomen: Present: Normal Bowel Sounds. No: Tenderness, Distention, Peritoneal Signs Back: Present: Normal Inspection Upper Extremity: Present: NORMAL PULSES (Distal pulses intact), Tenderness ( Left hand swelling and tenderness. Scant erythema), Swelling (Some swelling to the right hand, but not as bad as left. Change consistant with gout.), Erythema. No: Cyanosis, Edema Lower Extremity: Present: Normal Inspection. No: Edema Neurological: Present: GCS=15, CN II-XII Intact, Speech Normal Skin: Present: Warm, Dry, Normal Color. No: Rashes Psychiatric: Present: Alert, Oriented x 3, Normal Insight, Normal Concentration Medical Decision Making ED Course and Treatment: 04/05/17 22:22 Impression: 71 year old male presents complaining of bilateral hand pain. Patient was discharged 2 days ago after admission for gout and has been evaluated by orthopedics. No acute change in symptoms. Requesting pain medication. Afebrile and well appearing Plan: -- Percocet -- Reassess and disposition Prior Visits: Notes and results from previous visits were reviewed. Patient was last seen in the emergency department on 03/30/17 presents complaining of worsening left wrist and hand swelling and pain, erythema, warmth, and tenderness. Patient was admitted. Progress Notes: 04/05/17 22:[address] Looney. No change in symptoms since discharge. No indication for admission. Will discharge with pain medication. - Medication Orders Current Medication Orders: Discontinued Medications Oxycodone/Acetaminophen (Percocet 5/325 Mg Tab) 1 tab PO STAT STA Stop: 04/05/17 22:01 Last Admin: 04/05/17 22:09 Dose: 1 tab [facility] Pain Assessment Document 04/05/17 22:09 AD (Rec: 04/05/17 22:15 AD [facility] [id number] Pain Reassessment Is this a pain reassessment? No Presence of Pain Presence of Pain Yes Location Left, Right or Bilateral Bilateral Description Intensity of Pain at present 8 Pain Behavior Facial Grimacing - Scribe Statement The provider has reviewed the documentation as recorded by the Chepe Hanna Provider Scribe Attestation: All medical record entries made by the Scribe were at my direction and personally dictated by me. I have reviewed the chart and agree that the record accurately reflects my personal performance of the history, physical exam, medical decision making, and the department course for this patient. I have also personally directed, reviewed, and agree with the discharge instructions and disposition. Disposition/Present on Arrival - Present on Arrival Any Indicators Present on Arrival: No History of DVT/PE: No History of Uncontrolled Diabetes: No Urinary Catheter: No History of Decub. Ulcer: No History Surgical Site Infection Following: None - Disposition Have Diagnosis and Disposition been Completed?: Yes Diagnosis: Gout Disposition: HOME/ ROUTINE Disposition Time: 22:38 Patient Plan: Discharge Patient Problems: Current Active Problems Problem Status Onset Gout Acute Condition: GOOD Additional Instructions: Take full course of antibiotics. Take colchine as directed. Naproxen for mild pain. Percocet for severe pain. Follow-up with Dr. Whalen within 2 days. Return to ED if condition worsens. Prescriptions: Naproxen 500 mg PO BID PRN #20 tab PRN Reason: Pain, Mild (1-3) oxyCODONE/Acetaminophen [Percocet 5/325 mg Tab] 1 ea PO Q6 PRN #15 tab PRN Reason: Pain, Moderate (4-7) Referrals: Erum Torres, [Primary Care Provider] - Follow up with primary Forms: [employer] (Kazakh)
== END 2017-04-05 22:50 | disposition home or self-care (01) ==
LOC: ED 21:19
DX: M10.9 Gout, unspecified (principal)

== ENCOUNTER 2017-07-09 18:49 | Inpatient (IN) | payer MEDICARE ==
[2017-07-09 18:49] VITALS: PULSE 68
[2017-07-09 19:13] VITALS: BMI 27.8
--- NOTE | 2017-07-09 19:35 | ED PDOC ---
Arrival/HPI - General Chief Complaint: Lower Extremity Problem/Injury Time Seen by Provider: 07/09/17 19:20 Historian: Patient - History of Present Illness Narrative History of Present Illness (Text): 07/09/17 19:34 A 71 year old male, whose past medical history includes Congestive Heart Failure and defibrillator, presents to the emergency department for worsening b/ l leg swelling for the past 2-3 weeks. Reports to seeing PMD today, who advised patient to come to emergency department for further evaluation of CHF and blood clots. Patient also has a history of anemia and blood in stool. Patient denies any other complaints at this time. PMD: Dr. Whalen Cardio: Dr. Guevara GI: Dr. Shea Time/Duration: Other (2-3 weeks) Symptom Onset: Sudden Symptom Course: Unchanged Activities at Onset: Rest Context: Home Past Medical History - Provider Review Nursing Documentation Reviewed: Yes - Infectious Disease Hx of Infectious Diseases: None - Tetanus Immunization Tetanus Immunization: Unknown - Cardiac Hx Cardiac Disorders: Yes (CAD, S/P CABG, Afib) - Pulmonary Hx Respiratory Disorders: No - Neurological Hx Neurological Disorder: Yes Hx Seizures: Yes - HEENT Hx HEENT Disorder: No - Renal Hx Renal Disorder: No - Endocrine/Metabolic Hx Diabetes Mellitus Type 2: Yes - Hematological/Oncological Hx Blood Disorders: Yes Hx Cancer: Yes (bladder CA) - Integumentary Hx Dermatological Disorder: No - Musculoskeletal/Rheumatological Hx Arthritis: Yes - Gastrointestinal Hx Gastrointestinal Disorders: No - Genitourinary/Gynecological Hx Genitourinary Disorders: No - Psychiatric Hx Psychophysiologic Disorder: No Hx Substance Use: No - Surgical History Hx Cardiac Catheterization: Yes Hx Coronary Stent: Yes - Anesthesia Hx Anesthesia: Yes Hx Anesthesia Reactions: No Hx Malignant Hyperthermia: No - Suicidal Assessment Feels Threatened In Home Enviroment: No Family/Social History - Physician Review Nursing Documentation Reviewed: Yes Family/Social History: No Known Family HX Smoking Status: Heavy Smoker > 10 Cigarettes Daily Hx Alcohol Use: No Hx Substance Use: No Hx Substance Use Treatment: No Allergies/Home Meds Allergies/Adverse Reactions: Allergies No Known Allergies Allergy (Verified 07/09/17 19:13) Home Medications: Home Meds Medication Instructions Recorded Confirmed Digoxin 125 mcg PO DAILY 02/24/12 07/09/17 Glipizide [Glucotrol Xl] 5 mg PO BID 02/24/12 07/09/17 Carvedilol [Coreg] 25 mg PO BID 11/08/15 07/09/17 Famotidine [Pepcid] 20 mg PO BID 11/08/15 07/09/17 Gabapentin [Neurontin] 600 mg PO TID 11/08/15 07/09/17 [id number] CD [Cardizem CD] 180 mg PO DAILY 11/08/15 07/09/17 Aspirin [Ecotrin] 81 mg PO DAILY 11/12/15 07/09/17 Amoxicillin/Clavulanate [Augmentin 1 tab PO BID 04/05/17 07/09/17 875 MG-125 MG Tab] Colchicine [Colcrys] 0.6 mg PO DAILY 04/05/17 07/09/17 Review of Systems - Physician Review All systems were reviewed & negative as marked: Yes - Review of Systems Constitutional: absent: Fevers Musculoskeletal: Other (b/l LE swelling) Physical Exam Vital Signs Reviewed: Yes Vital Signs Temp Pulse Resp BP Pulse Ox 07/09/17 21:03 97.8 F 60 18 137/71 95 07/09/17 19:53 140/60 07/09/17 19:17 97.7 F 69 18 137/61 92 L Temperature: Afebrile Blood Pressure: Normal Pulse: Regular Respiratory Rate: Normal Appearance: Positive for: Well-Appearing, Non-Toxic, Comfortable Pain Distress: None Mental Status: Positive for: Alert and Oriented X 3 - Systems Exam Head: Present: Atraumatic, Normocephalic Pupils: Present: PERRL Extroacular Muscles: Present: EOMI Conjunctiva: Present: Normal Mouth: Present: Moist Mucous Membranes Neck: Present: Normal Range of Motion, JVD Respiratory/Chest: Present: Clear to Auscultation, Good Air Exchange. No: Respiratory Distress, Accessory Muscle Use Cardiovascular: Present: Regular Rate and Rhythm, Normal S1, S2. No: Murmurs Abdomen: No: Tenderness, Distention, Peritoneal Signs Back: Present: Normal Inspection Upper Extremity: Present: Normal Inspection. No: Cyanosis, Edema Lower Extremity: Present: Edema (b/l swelling LE up to thighs) Neurological: Present: GCS=15, CN II-XII Intact, Speech Normal Skin: Present: Warm, Dry, Normal Color. No: Rashes Psychiatric: Present: Alert, Oriented x 3, Normal Insight, Normal Concentration Medical Decision Making ED Course and Treatment: 07/09/17 19:32 Impression: A 71 year old male with b/l leg swelling. Plan: -- labs -- Chest X-ray -- US lower extremity -- Urinalysis -- Lasix -- Reassess and disposition Prior Visits: Notes and results from previous visits were reviewed. Patient was last seen in the emergency department on 04/05/17 for evaluation of b/l hand pain. Progress Notes: 07/09/17 21:[address] Holt, who agrees and accepts patient to be admitted , Dr. August on consult. 07/09/17 21:42 EKG: Ordered, reviewed, and independently interpreted the EKG. Rate : 54 BPM Rhythm : A fib Interpretation : controlled ventricular response - Lab Interpretations Lab Results: 07/09/17 19:40 07/09/17 19:40 Lab Results 07/09/17 19:40: Sodium 146, Chloride 106, Potassium 4.0, Carbon Dioxide 28, Anion Gap 15, BUN 21, Creatinine 1.3, Est GFR ( Amer) > 60, Est GFR (Non- Af Amer) 55, Random Glucose 60 L, Calcium 8.9, Total Bilirubin 0.9, AST 24, ALT 21, Alkaline Phosphatase 62, Lactate Dehydrogenase 409, Total Creatine Kinase 62 , Troponin I 0.01 D, NT-Pro-B Natriuret Pep 3230 H, Total Protein 7.4, Albumin 4.0, Globulin 3.4, Albumin/Globulin Ratio 1.2 07/09/17 19:40: pO2 48, VBG pH 7.38, VBG pCO2 50.0, VBG HCO3 29.6 H, VBG Total CO2 31.1 H, VBG O2 Sat (Calc) 85.1 H, VBG Base Excess 3.4 H, VBG Potassium 3.8, Sodium 139.0, Chloride 107.0, Glucose 60 L, Lactate 1.2, FiO2 21.0, Venous Blood Potassium 3.8 07/09/17 19:40: PT 20.4 H, INR 1.77 H 07/09/17 19:40: WBC 5.8 D, RBC 4.64, Hgb 11.6 L, Hct 37.1 L, MCV 80.0 D, MCH 25.0, MCHC 31.3, RDW 22.7 H, Plt Count 165, MPV 9.6, Gran % 66.8, Lymph % (Auto ) 22.3, [place] % (Auto) 8.1 H, Eos % (Auto) 2.1, Baso % (Auto) 0.7, Gran # 3.86, Lymph # (Auto) 1.3, [place] # (Auto) 0.5, Eos # (Auto) 0.1, Baso # (Auto) 0.04 I have reviewed the lab results: Yes - RAD Interpretation Radiology Orders: 07/09/17 19:21 DUPLEX LOWER EXTRM VEIN BILAT [US] Stat 07/09/17 19:29 CHEST PORTABLE [RAD] Stat - Medication Orders Current Medication Orders: Discontinued Medications Furosemide (Lasix) 80 mg IVP STAT STA Stop: 07/09/17 19:30 Last Admin: 07/09/17 19:53 Dose: 80 mg MAR Blood Pressure Document 07/09/17 19:53 LA (Rec: 07/09/17 19:55 LA [id number]) Blood Pressure Blood Pressure (100/60-150/90) 140/60 IVP Administration Document 07/09/17 19:53 LA (Rec: 07/09/17 19:55 LA [id number]) Charges for Administration # of IVP Administrations 1 - Scribe Statement The provider has reviewed the documentation as recorded by the Chepe Nino Provider Scribe Attestation: All medical record entries made by the Scribe were at my direction and personally dictated by me. I have reviewed the chart and agree that the record accurately reflects my personal performance of the history, physical exam, medical decision making, and the department course for this patient. I have also personally directed, reviewed, and agree with the discharge instructions and disposition. Disposition/Present on Arrival - Present on Arrival History of DVT/PE: No History of Uncontrolled Diabetes: No Urinary Catheter: No History of Decub. Ulcer: No History Surgical Site Infection Following: None - Disposition Referrals: Erum Torres, [Primary Care Provider] - Follow up with primary Forms: [employer] (Cameroonian)
[2017-07-09 20:07] LABS: VENOUS BLOOD GAS BASE EXCESS 3.4 mmol/L (0.0-2.0); VENOUS BLOOD GAS PO2 48 mm/Hg (30-55); VENOUS BLOOD PH 7.38 (7.32-7.43)
[2017-07-09 20:08] LABS: BASO # 0.04 K/mm3 (0.0-2.0); BASO % 0.7 % (0.0-3.0); EOS # 0.1 (0.0-0.7); EOS % 2.1 % (1.5-5.0); GRAN # 3.86 (1.4-6.5); GRAN % 66.8 % (50.0-68.0); HEMOGLOBIN 11.6 g/dL (14.0-18.0); LYMPH # 1.3 (1.2-3.4); LYMPH % 22.3 % (22.0-35.0); MEAN CORPUSCULAR HGB CONC 31.3 g/dl (31.0-37.0); MEAN PLATELET VOLUME 9.6 fl (7.0-11.0); MONO # 0.5 (0.1-0.6); MONO % 8.1 % (1.0-6.0); RBC 4.64 10^6/uL (3.5-6.1); RED CELL DISTRIBUTION WIDTH 22.7 % (11.5-14.5); WHITE BLOOD COUNT 5.8 10^3/ul (4.5-11.0)
[2017-07-09 20:14] LABS: INR 1.77 (0.93-1.08); PROTHROMBIN TIME 20.4 SECONDS (9.4-12.5)
[2017-07-09 20:17] LABS: ALB/GLOB RATIO 1.2 (1.1-1.8); ALT/SGPT 21 U/L (7-56); AST/SGOT 24 U/L (17-59); BLOOD UREA NITROGEN 21 mg/dL (7-21); CALCIUM 8.9 mg/dL (8.4-10.5); GFR AFRICAN-AMERICAN > 60; GFR NON-AFRICAN AMERICAN 55
[2017-07-09 20:28] LABS: B-TYPE NATRIURETIC PEPTIDE 3230 pg/mL (0-450); TROPONIN I 0.01 ng/mL
[2017-07-09 21:53] LABS: PH,URINE 6.5 (4.7-8.0); URINE APPEARANCE CLEAR (CLEAR); URINE BILIRUBIN NEGATIVE (NEGATIVE); URINE BLOOD NEGATIVE (NEGATIVE); URINE COLOR YELLOW (YELLOW); URINE GLUCOSE (UA) NEGATIVE (NEGATIVE); URINE LEUKOCYTE ESTERASE NEGATIVE Leu/uL (NEGATIVE); URINE PROTEIN NEGATIVE mg/dL (<30 mg/dL); URINE UROBILINOGEN 0.2 E.U./dL (<1 E.U./dL)
[2017-07-09] MEDS ORDERED: Oxycodone/Acetaminophen 5/325 mg Tab PO STA (22:24)
--- NOTE | 2017-07-10 09:52 | RAD ---
HISTORY: ?CHF COMPARISON: 03/30/2017 FINDINGS: LUNGS: Pulmonary vascular congestion, moderate. PLEURA: No significant pleural effusion identified, no pneumothorax apparent. CARDIOVASCULAR: Cardiomegaly -acute CHF.Position/ configuration of pacemaker device: Satisfactory. OSSEOUS STRUCTURES: No significant abnormalities. VISUALIZED UPPER ABDOMEN: Normal. OTHER FINDINGS: None. IMPRESSION: Cardiomegaly/ CHF with moderate pulmonary edema. This represents a new finding compared to the prior chest x-ray 03/30/2017.
[2017-07-10] MEDS ORDERED: Digoxin 125 mcg (0.125 mg) Tab PO SCH (10:45)
[2017-07-10] MEDS ORDERED: diltiaZEM 180 mg/24 Hours CD Cap PO SCH (10:45)
--- NOTE | 2017-07-10 11:06 | HP ---
CHIEF COMPLAINT AND HISTORY OF PRESENT ILLNESS: This is an 71-year-old male, who is coming in to the hospital with complaints of lower extremity swelling. He says that he has noticed that his legs were swelling for the past 2-3 weeks. He has no complaints of any chest pain. He has no nausea. No vomiting. He says that he was advised to come in to the ER for further evaluation by Dr. Whalen, his primary care doctor. He has no fevers or chills. No dysuria or frequency. No nocturia. REVIEW OF SYMPTOMS: All other review of symptoms are within normal limits except that was mentioned. ALLERGIES: NO KNOWN DRUG ALLERGIES. HOME MEDICATIONS: Digoxin has been reviewed on the [facility]. PAST MEDICAL HISTORY: 1. Stomach cancer in 1997 with partial gastrectomy. 2. Gout. 3. Diabetes type 2. 4. Hypertension. 5. Coronary artery disease, status post CABG. 6. Atrial fibrillation. 7. Peptic ulcer disease. PHYSICAL EXAMINATION: VITAL SIGNS: Temperature is 97.4, pulse of 87, blood pressure is 115/52, respirations 20, O2 saturation 94%, height is 5 feet 11, weight is 201 pounds. GENERAL: The patient lying in bed, uncomfortable, and in no acute distress. HEENT: Atraumatic and normocephalic. Anicteric sclerae. Moist mucosa. [place] conjunctivae. No oral lesions. NECK: No JVD, anterior and posterior adenopathy, thyromegaly, or bruits. CARDIOVASCULAR: S1 and S2 regular. No murmur, rubs, or gallop. LUNGS: Clear to auscultation bilaterally. No wheezes, rales, or rhonchi. ABDOMEN: Bowel sounds are positive. Soft, nontender and nondistended. No hepatosplenomegaly. No rebound and no guarding EXTREMITIES: No cyanosis, clubbing. Lower extremity, there is 2+ edema. NEUROLOGIC: No facial asymmetry. Tongue is midline. No uvula deviation. Power is 5/5 upper extremity and lower extremity. Sensation intact in upper extremity and lower extremity. PSYCHIATRIC: He is awake, alert and oriented x3. No anxiety or depression. He has normal affect. GENITOURINARY: No CVA tenderness. VASCULAR: 2+ pulses in the carotid pulses and pedal pulses. SKIN: No erythema or nodules SPINE: Shows normal curvature. LABORATORY DATA: Labs have been reviewed. The patient has hemoglobin of 11.6, creatinine is 1.3. ProBNP is 3230. Chest x-ray shows cardiomegaly. There is pulmonary edema. EKG shows a heart rate of 54 with atrial fibrillation. ASSESSMENT: 1. Acute congestive heart failure secondary to systolic dysfunction with ejection fraction of 35%. 2. Diabetes type 2. 3. Gout. 4. Coronary artery disease, status post coronary artery bypass graft. 5. Atrial fibrillation. 6. History of blood in stool. PLAN: The patient is admitted to the hospital. He has elevated proBNP. The patient has lower extremity edema. He is going to be placed on IV diuretics. The patient is receiving digoxin. This will be continued. He is on his Cardizem for his atrial fibrillation. He is receiving aspirin for his diabetes. He is going to need GI evaluation. He is on glipizide for his diabetes. This will be continued. He is also on Neurontin for his neuropathy. We will await further input from the warehouse person. The patient is going to have GI evaluation by Dr. Shea. He does complain of some blood in his stool. Kike Holt MD
[2017-07-10] MEDS: GlipiZIDE 5 mg SR Tab PO SCH ×2 (11:56→17:14)
--- NOTE | 2017-07-10 13:05 | CON ---
DATE: 07/10/2017 REQUESTING PHYSICIAN: Kike Holt MD. REASON FOR CONSULTATION: Recurrent congestive heart failure. HISTORY: This is a 71-year-old man, known to us with a history of coronary artery disease, prior myocardial fraction and severe LV dysfunction, admitted with worsening abdominal distention and leg edema. He also has a history of alcohol abuse. He claims compliance with his medications as well as sodium restriction and alcohol abstinence. Over the past several weeks, he has had worsening leg edema as well as apparent blood in his stool. He is also noted to be anemic. Admission for evaluation was advised. He has had multiple admissions for similar problems in the past. PAST MEDICAL HISTORY: As mentioned. He also has a history of chronic atrial fibrillation, maintained on Coumadin. He has had a prior ICD placed and is followed for this at [facility] [place]. 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 MEDICATIONS AT HOME: Include digoxin, Glucotrol XL, carvedilol 25 mg b.i.d., Pepcid, Neurontin, Cardizem 180 mg daily, aspirin, colchicine and Augmentin. ALLERGIES: NONE. SOCIAL HISTORY: He is a smoker and he also has a history of alcohol abuse in the past. FAMILY HISTORY: Both parents from age-related illness. REVIEW OF SYSTEMS: Ten-point review of systems is unremarkable. PHYSICAL EXAMINATION: GENERAL: He is a chronically ill-appearing middle-aged man. VITAL SIGNS: His blood pressure is 116/50 with a pulse of 86, in atrial fibrillation; respirations are 16; he is afebrile. HEENT: Diminished carotid upstrokes. CHEST: Decreased breath sounds at the bases. HEART: PMI displaced laterally with soft tones noted and systolic murmur present at the lower left sternal border. ABDOMEN: Soft, protuberant with normoactive bowel sounds. Ascites may be present. EXTREMITIES: 3+ edema to the thighs. SKIN: Warm and dry. PSYCHIATRIC: Normal mood and affect. NEUROLOGIC: No gross motor or sensory deficit is appreciable. DIAGNOSTIC DATA: White count is 5.8, hemoglobin and hematocrit 11.6 and 37.1 with a platelet count of 165,000. INR is 1.77. Venous blood gas: 7.38, pCO2 of 50, pO2 of 48. Potassium 4, BUN and creatinine are 21 and 1.3. BNP 3230. Troponin 0.01. Electrocardiogram reveals atrial fibrillation with intermittent pacing and controlled ventricular rate, left axis deviation is present, prior anterolateral wall myocardial fraction pattern is likely present as well. IMPRESSION: 1. Decompensated congestive heart failure, acute on chronic, possibly with a component of decompensated liver disease as well. 2. Known coronary artery disease, status post remote myocardial infarction and severe left ventricular dysfunction. 3. Status post implantable cardioverter-defibrillator implant. 4. Chronic atrial fibrillation. 5. Possible gastrointestinal bleeding. 6. Rest of problems as noted. RECOMMENDATIONS: His current cardiac medications will be continued for now. Followup CBCs are advised. GI evaluation for possible bleeding is recommended as well. Oral spironolactone will be added to his regimen at the present time. Continued sodium and fluid restriction was advised. Tobacco and alcohol abstinence were advised. We will follow along as needed. Chuy Spaulding MD
[2017-07-10] MEDS: Albuterol-Ipratrop 3 mg / 0.5 (3 ml) UD IH PRN (13:43)
[2017-07-10] MEDS ORDERED: Digoxin 250 mcg (0.25 mg) Tab PO SCH (14:00)
--- NOTE | 2017-07-10 15:25 | CARD ---
APPROVED REPORT EKG Measurement Heart [id number] <Conclusion> Atrial fibrillation with slow ventricular response and a demand ventricular paced rhythm Left axis deviation Anterolateral infarct, age undetermined Abnormal ECG
[2017-07-10] MEDS: Oxycodone/Acetaminophen 5/325 mg Tab PO PRN (17:15)
[2017-07-11 07:54] LABS: BLOOD UREA NITROGEN 18 mg/dL (7-21)
[2017-07-11 08:03] LABS: CALCIUM 8.8 mg/dL (8.4-10.5); GFR AFRICAN-AMERICAN > 60; GFR NON-AFRICAN AMERICAN > 60
[2017-07-11] MEDS: GlipiZIDE 5 mg SR Tab PO SCH ×3 (09:00→17:39)
[2017-07-11] MEDS: Oxycodone/Acetaminophen 5/325 mg Tab PO PRN ×2 (09:22→21:25)
[2017-07-11 10:06] LABS: INR 1.56 (0.93-1.08); PROTHROMBIN TIME 18.1 SECONDS (9.4-12.5)
--- NOTE | 2017-07-11 12:06 | PN ---
DATE: 07/11/2017 SUBJECTIVE: The patient has no complaints of any chest pain. No shortness of breath. No headaches or dizziness. REVIEW OF SYMPTOMS: All other review of symptoms are within normal limits except that was mentioned. PHYSICAL EXAMINATION: VITAL SIGNS: Temperature is 97.5, pulse of 53, blood pressure 136/50, respirations 22. GENERAL: The patient is lying in bed, flat, comfortable. HEENT: No oral lesion. Anicteric sclerae. Moist mucosa. NECK: No JVD, adenopathy, or thyromegaly. CARDIOVASCULAR: S1 and S2, regular. No murmurs, rubs, or gallops. LUNGS: Clear to auscultation bilaterally. No wheeze, rales, or rhonchi. ABDOMEN: Bowel sounds are positive, soft, nontender and nondistended. EXTREMITIES: No cyanosis, clubbing or edema. LABS: White count of 5.8, hemoglobin 11.6, creatinine is 1.1. ASSESSMENT: 1. Acute congestive heart failure secondary to systolic dysfunction with an EF of 35%. 2. Anemia secondary to gastrointestinal bleed. 3. Diabetes type 2. 4. Gout. 5. Coronary artery disease. 6. Atrial fibrillation on anticoagulation. PLAN: The patient is currently comfortable. He is on Aldactone. He is going to continue with colchicine. The patient is on Lasix. He is on Coumadin, but his anticoagulation is on hold because of his bleeding. The patient is being followed by Dr. Shea who is going to take the patient to the OR tomorrow. The patient also gets bradycardia at times, but he is asymptomatic. He is on Neurontin for neuropathy. He is on Percocet for pain. He has no complaints of any headaches or dizziness. I did speak with Dr. Shea regarding the case. Kike Holt MD
[2017-07-11] MEDS ORDERED: Peg-Electrolyte Oral Soln 4L (Golytely) PO ONE (14:00)
--- NOTE | 2017-07-11 14:51 | PN ---
DATE: 07/11/2017 SUBJECTIVE: The patient is seen lying in bed on telemetry. He is comfortable at the present time. His leg edema persists. CURRENT MEDICATIONS: Include Aldactone 25 mg b.i.d., colchicine 0.6 mg daily, carvedilol 25 mg b.i.d., albuterol inhaler, Ecotrin, Glucotrol XL 5 mg b.i.d., Lasix 40 mg b.i.d., Neurontin and Percocet p.r.n. OBJECTIVE: GENERAL: He is a middle-aged man who appears comfortable at rest. VITAL SIGNS: His blood pressure is 122/56 with a pulse of 56 with ventricular pacing, respirations are 14. He is afebrile. HEENT: No JVD. CHEST: Diminished breath sounds at the bases. HEART: PMI displaced laterally with soft tones noted and systolic murmur present at the apex. ABDOMEN: Soft and nontender with normoactive bowel sounds and mildly protuberant. EXTREMITIES: 2-3+ edema to the thighs. DIAGNOSTIC DATA: Potassium 3.3, BUN and creatinine are 18 and 1.1. INR 1.56. Intake and output from yesterday appears to be 960 and 1550. IMPRESSION: 1. Decompensated congestive heart failure, prominently right-sided. 2. Known coronary artery disease, status post myocardial infarction with residual severe left ventricular dysfunction. 3. Chronic atrial fibrillation. 4. Status post implantable cardioverter-defibrillator implant. 5. Possible gastrointestinal bleeding. RECOMMENDATIONS: His current diuretic therapy will be continued for now. Digoxin and diltiazem remain on hold. GI evaluation for possible source of bleeding has been considered. Continue sodium and fluid restriction was advised. We will be happy to follow along and make further recommendations as appropriate. Chuy Spaulding MD
[2017-07-11] MEDS: Albuterol-Ipratrop 3 mg / 0.5 (3 ml) UD IH PRN (18:30)
--- NOTE | 2017-07-11 19:18 | US ---
HISTORY: Leg pain and swelling. Evaluate for DVT PHYSICIAN(S): Charli Bear MD. TECHNIQUE: Duplex sonography and color-flow Doppler with graded compression were used to evaluate the deep venous systems of both lower extremities. The exam is limited by body habitus and edema. The tibial veins are not well seen FINDINGS: The visualized deep venous systems of both lower extremities are sonographically normal and compressible. Normal wave forms and augmentation are seen. There is no sonographic evidence for deep venous thrombosis in the visualized segments of both lower extremities. IMPRESSION: No sonographic evidence for deep venous thrombosis in the visualized segments of both lower extremities.
[2017-07-12 07:02] LABS: INR 1.35 (0.93-1.08); PROTHROMBIN TIME 15.5 SECONDS (9.4-12.5)
[2017-07-12 07:29] LABS: BLOOD UREA NITROGEN 12 mg/dL (7-21); CALCIUM 8.8 mg/dL (8.4-10.5); GFR AFRICAN-AMERICAN > 60; GFR NON-AFRICAN AMERICAN > 60
--- NOTE | 2017-07-12 08:25 | CON ---
DATE: 07/10/2017 REASON FOR THE CONSULT: Anemia, history of colon polyp, GI bleeding. HISTORY OF PRESENT ILLNESS: This is a 71-year-old patient with past medical history of coronary artery disease, CHF, history of ETOH use in the past, atrial fibrillation, on Coumadin, status post AICD placement, history of diabetes mellitus with peripheral vascular disease, status post CVA, peripheral neuropathy, admitted with increased leg swelling and also some shortness of breath. Patient also agrees to have some blood in the stool. 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 Patient is on iron supplement. GI consult was requested to evaluate this. Patient has a history of colon polyps and multiple colon polyps removed in 2014. They are tubular adenomas. Patient also has a history of gastric CA status post partial gastrectomy with . ALLERGIES: NO KNOWN DRUG ALLERGIES. SOCIAL HISTORY: History of alcohol use in the past. Positive for smoking. REVIEW OF SYSTEMS: Positive as above. Other systems reviewed. PHYSICAL EXAMINATION: GENERAL: The patient is lying on the bed, not in acute distress. VITAL SIGNS: Pulse 86, respiration is 16, blood pressure 115/50. HEENT: Atraumatic, anicteric. NECK: Supple. HEART: S1 and S2 heard, irregular. LUNGS: Bilateral air entry present. ABDOMEN: Soft. Liver edge was palpable. EXTREMITIES: Edema in bilateral legs present. NEUROLOGIC: Alert, oriented, moves all the extremities. LABORATORY DATA: Hemoglobin 11.6, hematocrit 37.1, platelets 155. INR was 1.77. BUN 31, creatinine 1.3. IMPRESSION: This is a 71-year-old patient with coronary artery disease, congestive heart failure, status post defibrillator placement, history of atrial fibrillation, on Coumadin, admitted with decompensated congestive heart failure and patient also was found to have blood in the stool. History of colon polyp and iron-deficiency anemia. Patient needs to be on anticoagulation in view of the drop in the hemoglobin, anemia, gastrointestinal bleeding. GI consult was requested to evaluate this. . The differential diagnosis should include colon polyp, peptic ulcer disease, . Patient would benefit from the esophagogastroduodenoscopy and a colonoscopy. I did have a detailed discussion with the patient. We will repeat the INR. If the INR is on downward side, we will consider EGD and a colonoscopy on Wednesday. I also discussed with the patient's family. Thank you very much for allowing us to participate in the care of the patient. Jarad Shea MD
[2017-07-12] MEDS ORDERED: Propofol 10 mg/ml Inj (20 ML) ONE (08:33)
[2017-07-12] MEDS ORDERED: Etomidate 20 mg/10ml Inj IV ONE (08:33)
--- NOTE | 2017-07-12 08:33 | IP.NPCORE ---
Heart Failure Core Measure - Heart Failure Left Ventricular Function to be assessed after discharge: Yes RUTHIE Inhibitor Prescribed: No Contraindication/Reason for not providing: hypersensitivity Beta-Cristóbal Prescribed: Carvedilol Angiotensin II Receptor Cristóbal Prescribed: No Contraindication/Reason for not providing: persistent dry cough AnticoagulationTherapy for Atrial Fibrillation/Atrialflutter: Yes Aldosterone Antagonist Prescribed: Yes Hydralazine Nitrate Prescribed: No Contraindication/Reason for not providing: bradycardia Implantable Cardioverter Defibrillator Therapy: Yes Cardiac Resynchronization Therapy Prescribed: Yes - Follow up Will be discharged to: Home Follow Up Date (must be within 7 days from discharge): 07/18/17 (recommended) Follow Up Time: 14:00
--- NOTE | 2017-07-12 08:34 | CP.PCM.PN ---
Subjective - Date & Time of Evaluation Date of Evaluation: 07/12/17 Time of Evaluation: 07:00 - Subjective Subjective: Stable on 2R. No CP or SOB. Less edema. He feels better. GI studies planned for today. V/S noted. AF/V. Paced at 60 BPM PE: Lungs: rhonchi Cor.: S1S2, sys. murmur Abd: soft Ext.: + edema Neuro.: alert I/O: N/A Labs: noted. BMP NL, INR = 1.35 BC X2 NG at 48 hrs. LE venous Dopplers: neg for DVT Objective - Vital Signs/Intake and Output Vital Signs (last 24 hours): Temp Pulse Resp BP Pulse Ox 97.6 F 71 12 144/74 95 07/12/17 05:24 07/12/17 08:10 07/12/17 08:10 07/12/17 08:10 07/12/17 08:10 Intake and Output: 07/12/17 07/12/17 06:59 18:59 Intake Total 600 Balance 600 - Medications Medications: Current Medications Albuterol/Ipratropium (Duoneb 3 Mg/0.5 Mg (3 Ml) Ud) 3 ml IH [id number] PRN PRN Reason: Wheezing Last Admin: 07/11/17 18:30 Dose: 3 ml Aspirin (Ecotrin) 81 mg PO DAILY [facility] Last Admin: 07/11/17 09:22 Dose: 81 mg Carvedilol (Coreg) 25 mg PO BID [facility] Last Admin: 07/11/17 17:39 Dose: 25 mg Colchicine (Colocrys) 0.6 mg PO DAILY [facility] Last Admin: 07/11/17 09:21 Dose: 0.6 mg Furosemide (Lasix) 40 mg IV BID [facility] Last Admin: 07/11/17 17:38 Dose: 40 mg Gabapentin (Neurontin) 600 mg PO TID [facility] PRN Reason: Protocol Last Admin: 07/11/17 17:38 Dose: 600 mg Glipizide (Glucotrol Xl) 5 mg PO BIDWM [facility] Last Admin: 07/11/17 17:39 Dose: 5 mg Oxycodone/Acetaminophen (Percocet 5/325 Mg Tab) 1 tab PO Q6 PRN PRN Reason: Pain, moderate (4-7) Stop: 07/13/17 10:45 Last Admin: 07/11/17 21:25 Dose: 1 tab Spironolactone (Aldactone) 25 mg PO BID [facility] Last Admin: 07/11/17 17:39 Dose: 25 mg - Labs Labs: 07/12/17 06:00 PT 15.5 SECONDS (9.4-12.5) H 07/12/17 06:30 INR 1.35 (0.93-1.08) H 07/12/17 06:30 Assessment and Plan - Assessment and Plan (Free Text) Assessment: Edema/Ascites Blood in BMs CHF CAD/WV/PCI/Severe LVD Moderate TR and Moderate/Severe PH on echo Chronic AF, on warfarin Diabetes PN 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 Monitor I/O, labs, sats., INRs, weights, etc. Colonoscopy and EGD planned for today. Warfarin on hold pending GI eval. Dig. and diltiazem not being given. Will reassess. OOB as livan Will follow.
[2017-07-12] MEDS ORDERED: Levalbuterol 1.25 MG/3 ML Inhal Soln UD ONE (09:10)
[2017-07-12] MEDS ORDERED: Levalbuterol 1.25 MG/3 ML Inhal Soln UD IH ONE (09:15)
[2017-07-12] MEDS ORDERED: Levalbuterol 1.25 MG/3 ML Inhal Soln UD IH STA (09:16)
[2017-07-12] MEDS ORDERED: Sodium Chloride 0.9% 1,000 ML IV SCH (09:30)
[2017-07-12 09:40] VITALS: O2SAT 97
[2017-07-12] MEDS: GlipiZIDE 5 mg SR Tab PO SCH (10:30)
[2017-07-12] MEDS: Oxycodone/Acetaminophen 5/325 mg Tab PO PRN (11:26)
[2017-07-12 14:17] VITALS: PULSE 62
[2017-07-12 14:22] VITALS: TEMP 97.3
[2017-07-12 15:09] VITALS: BP 143/74; RESP 58
--- NOTE | 2017-07-13 04:03 | DS ---
CHIEF COMPLAINT AND HISTORY OF PRESENT ILLNESS: This is a 71-year-old male who had come into the hospital because of acute CHF exacerbation. He was given IV diuretic therapy. He has improvement of his symptoms. He has EF of 35% from a previous echo. The patient has no complaints of any headaches or dizziness. No nausea, no vomiting. He has a history of atrial fibrillation. He is also complaining of rectal bleeding. He is going for colonoscopy today. His lower extremity swelling is better. No headaches, no dizziness. No nausea, no vomiting. PHYSICAL EXAMINATION: VITAL SIGNS: Temperature is 97.6, pulse of 59, blood pressure 145/91, respirations 20, O2 saturation 92%. GENERAL: The patient is lying in bed, flat, comfortable. HEENT: No oral lesion. Anicteric sclerae. Moist mucosa. NECK: No JVD, adenopathy, or thyromegaly. CARDIOVASCULAR: S1 and S2, regular. No murmurs, rubs, or gallops. LUNGS: Clear to auscultation bilaterally. No wheeze, rales, or rhonchi. ABDOMEN: Bowel sounds are positive, soft, nontender and nondistended. EXTREMITIES: Left lower extremity, 1+ edema. ASSESSMENT: 1. Acute congestive heart failure secondary to systolic dysfunction. 2. Atrial fibrillation, on anticoagulation. 3. Coronary artery disease. 4. Gout. 5. Anemia secondary to gastrointestinal bleed. 6. Status post defibrillator. PLAN: The patient is currently comfortable. He has no signs of bleeding. He was given GoLYTELY for his colonoscopy. He is on colchicine daily for his gout. He is receiving Coreg for his coronary disease. He is on Glucotrol for his diabetes. The patient is on Lasix twice a day. He is on Percocet for pain. He is on a liquid diet. If he has no acute abnormalities, we will most likely discharge home. Condition is stable. Activities, increase as tolerated. We will need to continue Lasix at home, he is on 40 mg twice a day. 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 He is also advised about the importance of low-sodium diet. Kike Holt MD
[2017-07-13] MEDS ORDERED: Pantoprazole 40 mg EC Tab PO SCH (06:00)
== END 2017-07-12 15:49 | disposition home health service (06) | DRG 292 ==
LOC: ED 18:49 → ERH 21:37 → 2RNO 07-10 01:40
PROVIDERS: ADMIT Internal Medicine Nephrology; ATTEND Internal Medicine Nephrology
DX: I11.0 Hypertensive heart disease with heart failure (principal); R18.8 Other ascites; I50.21 Acute systolic (congestive) heart failure; I48.2 Chronic atrial fibrillation; D50.0 Iron deficiency anemia secondary to blood loss (chronic); E11.42 Type 2 diabetes mellitus with diabetic polyneuropathy; E11.51 Type 2 diabetes mellitus with diabetic peripheral angiopathy without gangrene; F17.200 Nicotine dependence, unspecified, uncomplicated; I25.10 Atherosclerotic heart disease of native coronary artery without angina pectoris; Z95.1 Presence of aortocoronary bypass graft; Z87.11 Personal history of peptic ulcer disease; I67.9 Cerebrovascular disease, unspecified; I25.2 Old myocardial infarction; K27.9 Peptic ulcer, site unspecified, unspecified as acute or chronic, without hemorrhage or perforation; M10.9 Gout, unspecified; Z79.01 Long term (current) use of anticoagulants; Z85.028 Personal history of other malignant neoplasm of stomach; Z90.3 Acquired absence of stomach [part of]; Z86.010 Personal history of colon polyps; Z86.73 Personal history of transient ischemic attack (TIA), and cerebral infarction without residual deficits; Z89.429 Acquired absence of other toe(s), unspecified side; Z95.810 Presence of automatic (implantable) cardiac defibrillator

== ENCOUNTER 2017-08-30 12:08 | Inpatient (IN) | payer MEDICARE ==
[2017-08-30 12:25] VITALS: BMI 23.0
[2017-08-30 13:34] LABS: ALB/GLOB RATIO 1.1 (1.1-1.8); ALBUMIN 4.1 g/dL (3.0-4.8); ALT/SGPT 23 U/L (7-56); AST/SGOT 24 U/L (17-59); BLOOD UREA NITROGEN 29 mg/dL (7-21); CALCIUM 9.1 mg/dL (8.4-10.5); GFR AFRICAN-AMERICAN > 60; GFR NON-AFRICAN AMERICAN 55; URIC ACID 11.9 mg/dL (3.5-8.5)
--- NOTE | 2017-08-30 13:40 | ED PDOC ---
Arrival/HPI - General Chief Complaint: Lower Extremity Problem/Injury Time Seen by Provider: 08/30/17 12:45 Historian: Patient - History of Present Illness Narrative History of Present Illness (Text): 08/30/17 13:29 A 71 year old male presents to the emergency department complaining of right knee pain and swelling for 2 days. Patient reports his pain worsened today causing him to come in for further evaluation. Patient denies any recent falls, trauma or injury to area, fever, chills, nausea, vomiting, abdominal pain, chest pain, shortness of breath or any other complaints. Time/Duration: Other (2 days) Symptom Course: Worsening Quality: Other Context: Home Past Medical History - Provider Review Nursing Documentation Reviewed: Yes - Infectious Disease Hx of Infectious Diseases: None - Tetanus Immunization Tetanus Immunization: Unknown - Cardiac Hx Cardiac Disorders: Yes (CAD, S/P CABG, Afib) - Pulmonary Hx Respiratory Disorders: No - Neurological Hx Neurological Disorder: Yes Hx Seizures: Yes - HEENT Hx HEENT Disorder: No - Renal Hx Renal Disorder: No - Endocrine/Metabolic Hx Diabetes Mellitus Type 2: Yes - Hematological/Oncological Hx Blood Disorders: Yes Hx Cancer: Yes (bladder CA) - Integumentary Hx Dermatological Disorder: No - Musculoskeletal/Rheumatological Hx Arthritis: Yes - Gastrointestinal Hx Gastrointestinal Disorders: No - Genitourinary/Gynecological Hx Genitourinary Disorders: No - Psychiatric Hx Psychophysiologic Disorder: No Hx Substance Use: No - Surgical History Hx Cardiac Catheterization: Yes Hx Coronary Stent: Yes - Anesthesia Hx Anesthesia: Yes Hx Anesthesia Reactions: No Hx Malignant Hyperthermia: No - Suicidal Assessment Feels Threatened In Home Enviroment: No Family/Social History - Physician Review Nursing Documentation Reviewed: Yes Family/Social History: No Known Family HX Smoking Status: Heavy Smoker > 10 Cigarettes Daily Hx Alcohol Use: No Hx Substance Use: No Hx Substance Use Treatment: No Allergies/Home Meds Allergies/Adverse Reactions: Allergies No Known Allergies Allergy (Verified 07/09/17 19:13) Home Medications: Home Meds Medication Instructions Recorded Confirmed Digoxin 125 mcg PO DAILY 02/24/12 08/30/17 Glipizide [Glucotrol Xl] 5 mg PO BID 02/24/12 08/30/17 Carvedilol [Coreg] 25 mg PO BID 11/08/15 08/30/17 Famotidine [Pepcid] 20 mg PO BID 11/08/15 08/30/17 Gabapentin [Neurontin] 600 mg PO TID 11/08/15 08/30/17 [id number] CD [Cardizem CD] 180 mg PO DAILY 11/08/15 08/30/17 Aspirin [Ecotrin] 81 mg PO DAILY 11/12/15 08/30/17 Colchicine [Colcrys] 0.6 mg PO DAILY 04/05/17 08/30/17 Review of Systems - Physician Review All systems were reviewed & negative as marked: Yes - Review of Systems Constitutional: absent: Fevers, Night Sweats Respiratory: absent: SOB Cardiovascular: absent: Chest Pain Gastrointestinal: absent: Abdominal Pain, Nausea, Vomiting Musculoskeletal: Other (right knee pain and swelling) Physical Exam Vital Signs Reviewed: Yes Vital Signs Temp Pulse Resp BP Pulse Ox 08/30/17 16:12 100.4 F H 72 18 115/72 95 08/30/17 12:26 99.8 F H 72 18 122/56 L 95 Temperature: Afebrile Blood Pressure: Hypotensive Pulse: Regular Respiratory Rate: Normal Appearance: Positive for: Well-Appearing, Non-Toxic, Comfortable Pain Distress: None Mental Status: Positive for: Alert and Oriented X 3 Medical Decision Making ED Course and Treatment: 08/30/17 13:29 Impression: A 71 year old male with right knee pain and swelling Plan: -- Right knee xray -- Labs -- Blood culture -- Reassess and disposition Progress Notes: 08/30/17 15:00 Patient was seen by Dr. Trinh at bedside. Dr. Trinh drained straw colored fluid from the right knee with no complications. Patient is resting comfortably with no new complaints. - Lab Interpretations Lab Results: 08/30/17 13:20 08/30/17 13:20 Lab Results 08/30/17 15:56: Fluid Type Synovial fluid, Synovial WBC 27742.0 H, Synovial RBC 27.5 H, Synovial Neutrophils 94.0 H, Synovial Lymphocytes 6.0 H, Synov Monos/ Macrophage Pending, Synovial Fluid Comment 08/30/17 13:20: Sodium 141, Potassium 4.5, Chloride 100, Carbon Dioxide 31, Anion Gap 15, BUN 29 H, Creatinine 1.3, Est GFR ( Amer) > 60, Est GFR ( Non-Af Amer) 55, Random Glucose 79, Uric Acid 11.9 H, Calcium 9.1, Total Bilirubin 1.4 H, AST 24, ALT 23, Alkaline Phosphatase 50, Total Protein 7.9, Albumin 4.1, Globulin 3.8, Albumin/Globulin Ratio 1.1 08/30/17 13:20: WBC 7.4 D, RBC 4.60, Hgb 12.2 L, Hct 36.5 L, MCV 79.3 L, MCH 26.5, MCHC 33.4, RDW 22.8 H, Plt Count 160, MPV 9.4, Gran % 71.7 H, Lymph % ( Auto) 15.1 L, [place] % (Auto) 10.7 H, Eos % (Auto) 1.8, Baso % (Auto) 0.7, Gran # 5.29, Lymph # (Auto) 1.1 L, [place] # (Auto) 0.8 H, Eos # (Auto) 0.1, Baso # (Auto ) 0.05 I have reviewed the lab results: Yes - RAD Interpretation Narrative RAD Interpretations (Text): 08/30/17 17:24 X-ray of right knee was reviewed by radiologist, shows: No acute fractures. Minor degenerative osteoarthritis. 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 No Sleep Is patient sleeping during reassessment? No Presence of Pain Presence of Pain Yes Bupivacaine HCl (Marcaine 0.25%) 15 ml IJ STAT STA Stop: 08/30/17 15:32 Last Admin: 08/30/17 16:10 Dose: 15 ml Methylprednisolone Acetate (Depo-Medrol) 80 mg IM STAT STA Stop: 08/30/17 15:33 Last Admin: 08/30/17 16:10 Dose: 80 mg IM Administration Charges Document 08/30/17 16:10 EQ (Rec: 08/30/17 16:11 EQ [id number]) Charges for Administration # of IM Administrations 1 Morphine Sulfate (Morphine) 2 mg IVP STAT STA Stop: 08/30/17 17:33 Last Admin: 08/30/17 17:47 Dose: 2 mg MAR Pain Assessment Document 08/30/17 17:47 EQ (Rec: 08/30/17 17:47 EQ [id number]) Pain Reassessment Is this a pain reassessment? No Sleep Is patient sleeping during reassessment? No Presence of Pain Presence of Pain Yes IVP Administration Document 08/30/17 17:47 EQ (Rec: 08/30/17 17:47 EQ [id number]) Charges for Administration # of IVP Administrations 1 - Scribe Statement The provider has reviewed the documentation as recorded by the Chepe Kim Provider Scribe Attestation: All medical record entries made by the Scribe were at my direction and personally dictated by me. I have reviewed the chart and agree that the record accurately reflects my personal performance of the history, physical exam, medical decision making, and the department course for this patient. I have also personally directed, reviewed, and agree with the discharge instructions and disposition. Disposition/Present on Arrival - Present on Arrival Any Indicators Present on Arrival: No History of DVT/PE: No History of Uncontrolled Diabetes: No Urinary Catheter: No History of Decub. Ulcer: No History Surgical Site Infection Following: None - Disposition Have Diagnosis and Disposition been Completed?: Yes Diagnosis: Septic joint Disposition Time: 15:00 Condition: STABLE Prescriptions: Naproxen [Naprosyn] 500 mg PO Q12 PRN #20 tablet PRN Reason: Pain, Moderate (4-7)
[2017-08-30 13:42] LABS: BASO # 0.05 K/mm3 (0.0-2.0); BASO % 0.7 % (0.0-3.0); EOS # 0.1 (0.0-0.7); EOS % 1.8 % (1.5-5.0); GRAN # 5.29 (1.4-6.5); GRAN % 71.7 % (50.0-68.0); HEMOGLOBIN 12.2 g/dL (14.0-18.0); LYMPH # 1.1 (1.2-3.4); LYMPH % 15.1 % (22.0-35.0); MEAN CELL VOLUME 79.3 fl (80.0-105.0); MEAN CORPUSCULAR HEMOGLOBIN 26.5 pg (25.0-35.0); MEAN CORPUSCULAR HGB CONC 33.4 g/dl (31.0-37.0); MEAN PLATELET VOLUME 9.4 fl (7.0-11.0); MONO # 0.8 (0.1-0.6); MONO % 10.7 % (1.0-6.0); RBC 4.6 10^6/uL (3.5-6.1); RED CELL DISTRIBUTION WIDTH 22.8 % (11.5-14.5); WHITE BLOOD COUNT 7.4 10^3/ul (4.5-11.0)
--- NOTE | 2017-08-30 15:28 | RAD ---
PROCEDURE: Right Knee Radiographs. HISTORY: Nontraumatic swollen joint COMPARISON: None. FINDINGS: BONES: No evidence of acute displaced fracture nor dislocation. The osseous structures appear intact. No obvious cortical destructive changes. JOINTS: Minor degenerative osteoarthritis. Small anterior patella enthesophytes are present. JOINT EFFUSION: Moderate to large size suprapatellar joint effusion. OTHER FINDINGS: Vascular calcifications are present IMPRESSION: No acute fractures. Minor degenerative osteoarthritis. Moderate to large size suprapatellar joint effusion
[2017-08-30] MEDS ORDERED: Bupivacaine 0.25% Inj(30mL) IJ STA (15:31)
[2017-08-30] MEDS ORDERED: MethylPREDNISolone Depo 40 mg/ml Inj IM STA (15:32)
[2017-08-30 15:58] LABS: FLUID TYPE SYNOVIAL FLUID
[2017-08-30 17:15] LABS: SF GROSS APPEARANCE TURBID (CLEAR)
[2017-08-30] MEDS ORDERED: Morphine 2 mg/ml ISec IVP STA (17:32)
[2017-08-30] MEDS ORDERED: Vancomycin 1gm in NS 250ml 1 GM/250 ML BAG IVPB STA (18:44)
[2017-08-30] MEDS: Cefepime 1gm in NS 100ml 1 GM/100 ML BAG IVPB SCH (21:45)
--- NOTE | 2017-08-31 07:52 | CP.PCM.HP ---
<Paramjit Caldwell - Last Filed: 08/31/17 13:50> History of Present Illness - History of Present Illness History of Present Illness: Medicine H&P for Dr. Holt's service - Shakira Caldwell PGY3 HPI: Patient is a 71yo male with past medical history of hypertension, hyperlipidemia, diabetes mellitus type 2, gout, CAD, atrial fibrillation, systolic CHF (LVEF 35%) that presented to [facility] with c/o right knee pain for 2 days. He reported that he noticed that his right knee became swollen, difficult to stand on and was painful on ambulation. He reported having had a similar type of pain in the past and told he has gout however was not taking medication for prevention/flares. He denied any trauma, fevers, chills, nausea or vomiting. He also denied any chest pain, palpitations, SOB, abdominal pain, focal weakness, numbness, tingling. 12point ROS as per above otherwise negative PMH: as stated above PSH: permanent pacemaker implantation Allergies: NKDA Family Hx: reviewed, non-contributory Social Hx: Lives at home alone, denies alcohol and illicit drug use PMD: Dr. Whalen Present on Admission - Present on Admission Any Indicators Present on Admission: No Past Patient History - Infectious Disease Hx of Infectious Diseases: None - Tetanus Immunizations Tetanus Immunization: Unknown - Past Social History Smoking Status: Heavy Smoker > 10 Cigarettes Daily - CARDIAC Hx Cardiac Disorders: Yes (CAD, S/P CABG, Afib) - PULMONARY Hx Respiratory Disorders: No - NEUROLOGICAL Hx Neurological Disorder: Yes Hx Seizures: Yes - HEENT Hx HEENT Problems: No - RENAL Hx Chronic Kidney Disease: No - ENDOCRINE/METABOLIC Hx Diabetes Mellitus Type 2: Yes - HEMATOLOGICAL/ONCOLOGICAL Hx Blood Disorders: Yes Hx Cancer: Yes (bladder CA) - INTEGUMENTARY Hx Dermatological Problems: No - MUSCULOSKELETAL/RHEUMATOLOGICAL Hx Arthritis: Yes - GASTROINTESTINAL Hx Gastrointestinal Disorders: No - GENITOURINARY/GYNECOLOGICAL Hx Genitourinary Disorders: No - PSYCHIATRIC Hx Psychophysiologic Disorder: No Hx Substance Use: No - SURGICAL HISTORY Hx Cardiac Catheterization: Yes Hx Coronary Stent: Yes - ANESTHESIA Hx Anesthesia: Yes Hx Anesthesia Reactions: No Hx Malignant Hyperthermia: No Meds Home Medications: Home Medication List Medication Instructions Recorded Confirmed Type Naproxen [Naprosyn] 500 mg PO Q12 PRN #20 tablet 08/30/17 Rx Allergies/Adverse Reactions: Allergies Allergy/AdvReac Type Severity Reaction Status Date / Time No Known Allergies Allergy Verified 07/09/17 19:13 Physical Exam - Constitutional Appears: No Acute Distress - Head Exam Head Exam: ATRAUMATIC, NORMOCEPHALIC - Eye Exam Eye Exam: EOMI Pupil Exam: PERRL - ENT Exam ENT Exam: Mucous Membranes Moist - Neck Exam Neck exam: Positive for: Normal Inspection - Respiratory Exam Respiratory Exam: Clear to Auscultation Bilateral. absent: Rales, Rhonchi, Wheezes - Cardiovascular Exam Cardiovascular Exam: Irregular Rhythm, +S1, +S2. absent: Gallop, Rubs - GI/Abdominal Exam GI & Abdominal Exam: Normal Bowel Sounds, Soft. absent: Distended, Firm, Guarding, Rebound, Rigid, Tenderness - Extremities Exam Extremities exam: Negative for: pedal edema Additional comments: right knee without erythema or edema left knee, no erythema or edema - Neurological Exam Neurological exam: Alert, CN II-XII Intact, Oriented x3 - Psychiatric Exam Psychiatric exam: Normal Affect, Normal Mood - Skin Skin Exam: Dry, Intact, Normal Color, Warm Results - Vital Signs Recent Vital Signs: Last Vital Signs Temp 97.6 F 08/31/17 06:28 Pulse 65 08/31/17 06:28 Resp 18 08/31/17 06:28 BP 141/70 08/31/17 06:28 Pulse Ox 96 08/31/17 06:28 - Labs Result Diagrams: 08/30/17 13:20 08/30/17 13:20 Labs: Laboratory Results - last 24 hr 08/30/17 21:21 POC Glucose (mg/dL) 170 H Assessment & Plan - Assessment and Plan (Free Text) Plan: 71yo male with history of hypertension, hyperlipidemia, DM type 2, gout, afib on coumadin presents with c/o right-sided knee pain for past 2 days associated with difficulty ambulation secondary to acute gout flare 1. Acute gout flare 2. Hx of hypertension 3. Hx of hyperlipidemia 4. DM type 2 5. Hx of afib on coumadin 6. Hx of systolic CHF (EF 35%), compensated -The patient is currently on colchicine for suspected acute gout flare. The synovial fluid was reviewed and uric acid is elevated however is pending culture /sensitivity -He is presently on IV cefepime and we will continue pending the results of the culture; ID is following as well -He is on digoxin, cardizem and warfarin for his history of atrial fibrillation as well as coreg, aldactone and lasix for his CHF -He is on pepcid for GI prophylaxis/GERD -Consistent carb diet, fingersticks ACHS with insulin sliding scale coverage -BRIAN/TCU evaluation as he is deconditioned and will benefit from subacute rehabilitation -PT evaluation Patient seen and case discussed/reviewed with attending, Dr. Holt <Kike Holt S - Last Filed: 08/31/17 19:23> Results - Vital Signs Recent Vital Signs: Last Vital Signs Temp 97.9 F 08/31/17 16:16 Pulse 60 08/31/17 17:51 Resp 20 08/31/17 16:16 BP 129/70 08/31/17 17:53 Pulse Ox 96 08/31/17 16:16 - Labs Result Diagrams: 08/30/17 13:20 08/30/17 13:20 Labs: Laboratory Results - last 24 hr 08/30/17 08/31/17 08/31/17 21:21 07:20 11:04 POC Glucose (mg/dL) 170 H 290 H 289 H 08/31/17 15:38 POC Glucose (mg/dL) 239 H Assessment & Plan - Assessment and Plan (Free Text) Plan: Pt seen and examined. I have reviewed the note of the medical pathologist and agree with it. I have discussed the assessment and plan with the resident. I have reviewed the patient's labs and medications. Pt with acute gout attack. Pt is on colchicine. He does not seem to have a septic joint. Will wait for crystal evaluation from the joint aspiration by ortho.May need TCU for PT. He is open to the idea.
--- NOTE | 2017-08-31 08:15 | CON ---
DATE: 08/30/2017 ORTHOPEDIC CONSULTATION HISTORY OF PRESENT ILLNESS: The patient is seen in the emergency room for swollen right knee. A 71-year-old male came in complaining of swollen right knee with tremendous pain for 2 days. X-rays showed mild osteoarthritis in the right knee with an effusion, also with a past history of gout, from what he said, we aspirated 60 mL of turbid fluid, greenish tinged, and going to send it over for cell count, culture, and crystals. Low-grade fever, does not look infectious but morbid inflammatory arthritis; could be gout or pseudogout. So once this fluid was aspirated, we irrigated with 40 mL of normal saline, expressed half of it, and then put in 0.5% bupivacaine and Depo-Medrol for inflammatory relief of the pain. Patient will be seen in the office since the fluid was sent for cultures, cell count, crystals. FINAL DIAGNOSES: Inflammatory arthritis, right knee with pain. Michoacano Trinh DO
[2017-08-31] MEDS: Insulin Reg-MEDIUM-Coverage SC SCH ×3 (08:50→17:55)
--- NOTE | 2017-08-31 11:13 | CP.PCM.CON ---
History of Present Illness - History of Present Illness History of Present Illness: 71 year old male with PMH of HTN, DM, CAD S/P CABG, peptic ulcer disease, atrial fibrillation, gout came to [facility] [place] complaining of right knee pain and swelling for 2 days prior to admission. He denies trauma to the knee, no scratches to the legs, no animal contacts, no travel to wooded areas, no known insect or tick bites. He denies fever or chills, no nausea or vomiting, no headache or dizziness, no chest pain, no SOB, no cough or rhinorrhea, no abdominal pain, no diarrhea, no dysuria. Xray of the knee showed large joint effusion. He was seen yesterday by Ortho and arthrocentesis was done showing ~19 ,000 WBC's in the fluid. The patient is feeling much better after the procedure. Infectious diseases consult is requested to further evaluate and manage. Review of Systems - Review of Systems All systems: reviewed and no additional remarkable complaints except (as per HPI ) Past Patient History - Infectious Disease Hx of Infectious Diseases: None - Tetanus Immunizations Tetanus Immunization: Unknown - Past Social History Smoking Status: Heavy Smoker > 10 Cigarettes Daily - CARDIAC Hx Cardiac Disorders: Yes (CAD, S/P CABG, Afib) - PULMONARY Hx Respiratory Disorders: No - NEUROLOGICAL Hx Neurological Disorder: Yes Hx Seizures: Yes - HEENT Hx HEENT Problems: No - RENAL Hx Chronic Kidney Disease: No - ENDOCRINE/METABOLIC Hx Diabetes Mellitus Type 2: Yes - HEMATOLOGICAL/ONCOLOGICAL Hx Blood Disorders: Yes Hx Cancer: Yes (bladder CA) - INTEGUMENTARY Hx Dermatological Problems: No - MUSCULOSKELETAL/RHEUMATOLOGICAL Hx Arthritis: Yes - GASTROINTESTINAL Hx Gastrointestinal Disorders: No - GENITOURINARY/GYNECOLOGICAL Hx Genitourinary Disorders: No - PSYCHIATRIC Hx Psychophysiologic Disorder: No Hx Substance Use: No - SURGICAL HISTORY Hx Cardiac Catheterization: Yes Hx Coronary Stent: Yes - ANESTHESIA Hx Anesthesia: Yes Hx Anesthesia Reactions: No Hx Malignant Hyperthermia: No Meds Home Medications: Home Medication List Medication Instructions Recorded Confirmed Type Naproxen [Naprosyn] 500 mg PO Q12 PRN #20 tablet 08/30/17 Rx Allergies/Adverse Reactions: Allergies Allergy/AdvReac Type Severity Reaction Status Date / Time No Known Allergies Allergy Verified 07/09/17 19:13 - Medications Medications: Current Medications Acetaminophen (Tylenol 325mg Tab) 650 mg PO Q6H PRN PRN Reason: Pain, moderate (4-7) Carvedilol (Coreg) 25 mg PO BID [facility] Colchicine (Colocrys) 0.6 mg PO DAILY [facility] Digoxin (Digoxin) 0.125 mg PO 1400 [facility] Diltiazem HCl (Cardizem Cd) 180 mg PO DAILY [facility] Famotidine (Pepcid) 20 mg PO BID [facility] Furosemide (Lasix) 40 mg PO BID [facility] Gabapentin (Neurontin) 600 mg PO TID [facility] PRN Reason: Protocol Cefepime HCl (Maxipime 1gm) 1 gm in 100 mls @ 100 mls/hr IVPB Q12 [facility] PRN Reason: Protocol Last Admin: 08/30/17 21:45 Dose: 100 mls/hr Spironolactone (Aldactone) 25 mg PO BID [facility] Physical Exam - Constitutional Appears: Non-toxic, Chronically Ill - Head Exam Head Exam: NORMAL INSPECTION - Neck Exam Neck exam: Negative for: Lymphadenopathy, Meningismus - Respiratory Exam Respiratory Exam: Decreased Breath Sounds. absent: Rales - Cardiovascular Exam Cardiovascular Exam: +S1, +S2 - GI/Abdominal Exam GI & Abdominal Exam: Soft. absent: Tenderness - Extremities Exam Additional comments: right knee with lateral dressing in place, no swelling, no erythema, no fluid wave Results - Vital Signs Recent Vital Signs: Last Vital Signs Temp 98.4 F 08/30/17 20:13 Pulse 60 08/30/17 20:13 Resp 18 08/30/17 20:13 BP 128/56 L 08/30/17 20:13 Pulse Ox 97 08/30/17 20:13 - Labs Result Diagrams: 08/30/17 13:20 08/30/17 13:20 Labs: Laboratory Results - last 24 hr 08/30/17 21:21 POC Glucose (mg/dL) 170 H Assessment & Plan - Assessment and Plan (Free Text) Plan: Assessment Inflammatory arthritis of the right knee, consider gout R/O septic arthritis ( less likely) acute renal failure history of right sided HCAP HTN DM CAD S/P CABG peptic ulcer disease atrial fibrillation Plan patient has been started on Cefepime and given a dose of IV Vancomycin pending blood cx, cultures of the synovial fluid will monitor clinically
[2017-08-31] MEDS: diltiaZEM 180 mg/24 Hours CD Cap PO SCH (11:57)
[2017-08-31] MEDS: Cefepime 1gm in NS 100ml 1 GM/100 ML BAG IVPB SCH ×2 (11:58→21:22)
[2017-08-31] MEDS: Digoxin 125 mcg (0.125 mg) Tab PO SCH (14:00)
[2017-09-01 06:35] LABS: INR 1.45 (0.93-1.08); PROTHROMBIN TIME 16.8 SECONDS (9.4-12.5)
[2017-09-01] MEDS: Insulin Reg-MEDIUM-Coverage SC SCH ×4 (08:32→21:54)
--- NOTE | 2017-09-01 10:02 | CP.PCM.PN ---
<Paramjit Caldwell - Last Filed: 09/01/17 09:58> Subjective - Date & Time of Evaluation Date of Evaluation: 09/01/17 Time of Evaluation: 09:58 - Subjective Subjective: Medicine progress note for Dr. Holt's service - Shakira Caldwell PGY3 Patient seen and examined at bedside this morning. No acute overnight events or new complaints. Patient is pending insurance approval for BRIAN placement. Denies chest pain, palpitations, SOB. Objective - Vital Signs/Intake and Output Vital Signs (last 24 hours): Temp Pulse Resp BP Pulse Ox 98 F 55 L 19 110/56 L 95 09/01/17 08:07 09/01/17 08:07 09/01/17 08:07 09/01/17 08:07 09/01/17 08:07 Intake and Output: 09/01/17 09/01/17 06:59 18:59 Intake Total 540 Balance 540 - Medications Medications: Current Medications Acetaminophen (Tylenol 325mg Tab) 650 mg PO Q6H PRN PRN Reason: Pain, moderate (4-7) Last Admin: 08/31/17 08:50 Dose: 650 mg Carvedilol (Coreg) 25 mg PO BID [facility] Last Admin: 08/31/17 17:51 Dose: 25 mg Colchicine (Colocrys) 0.6 mg PO DAILY [facility] Last Admin: 08/31/17 11:57 Dose: 0.6 mg Digoxin (Digoxin) 0.125 mg PO 1400 [facility] Last Admin: 08/31/17 14:00 Dose: 0.125 mg Diltiazem HCl (Cardizem Cd) 180 mg PO DAILY [facility] Last Admin: 08/31/17 11:57 Dose: 180 mg Famotidine (Pepcid) 20 mg PO BID [facility] Last Admin: 08/31/17 17:53 Dose: 20 mg Furosemide (Lasix) 40 mg PO BID [facility] Last Admin: 08/31/17 17:53 Dose: 40 mg Gabapentin (Neurontin) 600 mg PO TID [facility] PRN Reason: Protocol Last Admin: 08/31/17 17:54 Dose: 600 mg Insulin Human Regular (Humulin R Med) 0 units SC ACHS [facility] PRN Reason: Protocol Last Admin: 09/01/17 08:32 Dose: 1 units Spironolactone (Aldactone) 25 mg PO BID [facility] Last Admin: 08/31/17 17:51 Dose: 25 mg Warfarin Sodium (Coumadin) 2.5 mg PO 1800 [facility] PRN Reason: Protocol Last Admin: 08/31/17 17:52 Dose: 2.5 mg - Labs Labs: PT 16.8 SECONDS (9.4-12.5) H 09/01/17 05:30 INR 1.45 (0.93-1.08) H 09/01/17 05:30 - Constitutional Appears: No Acute Distress - Head Exam Head Exam: ATRAUMATIC, NORMAL INSPECTION, NORMOCEPHALIC - Eye Exam Eye Exam: EOMI, PERRL - ENT Exam ENT Exam: Mucous Membranes Moist - Neck Exam Neck Exam: Normal Inspection - Respiratory Exam Respiratory Exam: Clear to Ausculation Bilateral. absent: Rales, Rhonchi, Wheezes - Cardiovascular Exam Cardiovascular Exam: RRR, +S1, +S2. absent: Gallop, Rubs - GI/Abdominal Exam GI & Abdominal Exam: Soft. absent: Distended, Firm, Guarding, Rigid, Tenderness , Rebound - Extremities Exam Additional comments: left knee with no edema or erythema; right knee with no edema or erythema - Neurological Exam Neurological Exam: Alert, Awake, CN II-XII Intact, Oriented x3 - Psychiatric Exam Psychiatric exam: Normal Affect, Normal Mood - Skin Skin Exam: Dry, Intact, Normal Color, Warm Assessment and Plan - Assessment and Plan (Free Text) Plan: 71yo male with history of hypertension, hyperlipidemia, DM type 2, gout, afib on coumadin presents with c/o right-sided knee pain for past 2 days associated with difficulty ambulation secondary to acute gout flare 1. Acute gout flare 2. Hx of hypertension 3. Hx of hyperlipidemia 4. DM type 2 5. Hx of afib on coumadin 6. Hx of systolic CHF (EF 35%), compensated -The patient is currently on colchicine for gout flare -Synovial fluid revealed gout crystals; Culture negative, Uric acid elevated -Cefepime was discontinued -Pending BRIAN placement as he is deconditioned and would benefit from physical therapy -He is on digoxin, cardizem and warfarin for his history of atrial fibrillation as well as coreg, aldactone and lasix for his CHF -He is on pepcid for GI prophylaxis/GERD -Consistent carb diet, fingersticks ACHS with insulin sliding scale coverage -BRIAN/TCU evaluation as he is deconditioned and will benefit from subacute rehabilitation -PT evaluation reviewed Patient seen and case discussed/reviewed with attending, Dr. Holt <Kike Holt - Last Filed: 09/02/17 18:41> Objective - Vital Signs/Intake and Output Vital Signs (last 24 hours): Temp Pulse Resp BP Pulse Ox 97.8 F 82 19 120/72 96 09/02/17 08:32 09/02/17 10:25 09/02/17 08:32 09/02/17 11:51 09/02/17 08:32 Intake and Output: 09/02/17 09/02/17 06:59 18:59 Intake Total 240 Balance 240 - Labs Labs: 09/02/17 05:45 09/02/17 05:45 PT 15.8 SECONDS (9.4-12.5) H 09/02/17 05:45 INR 1.37 (0.93-1.08) H 09/02/17 05:45 Assessment and Plan - Assessment and Plan (Free Text) Plan: Pt seen and examined yesterday. This is a late entry. I have reviewed the note of the medical assistant float and agree with it. I have discussed the assessment and plan with the resident. I have reviewed the patient's labs and medications. Pt will need PT. He is agreeable to TCU. On Colchicine for gout. He is feeling better. He is able to put more weight on his knee. D/C Abx.
[2017-09-01] MEDS: diltiaZEM 180 mg/24 Hours CD Cap PO SCH (10:07)
--- NOTE | 2017-09-01 11:09 | CP.PCM.PN ---
Subjective - Date & Time of Evaluation Date of Evaluation: 09/01/17 Time of Evaluation: 09:30 - Subjective Subjective: Patient is ready to do his physical therapy, no fevers, improved pain in the knee. Objective - Vital Signs/Intake and Output Vital Signs (last 24 hours): Temp Pulse Resp BP Pulse Ox 98 F 55 L 19 110/56 L 95 09/01/17 08:07 09/01/17 08:07 09/01/17 08:07 09/01/17 08:07 09/01/17 08:07 Intake and Output: 09/01/17 09/01/17 06:59 18:59 Intake Total 540 Balance 540 - Medications Medications: Current Medications Acetaminophen (Tylenol 325mg Tab) 650 mg PO Q6H PRN PRN Reason: Pain, moderate (4-7) Last Admin: 08/31/17 08:50 Dose: 650 mg Carvedilol (Coreg) 25 mg PO BID [facility] Last Admin: 08/31/17 17:51 Dose: 25 mg Colchicine (Colocrys) 0.6 mg PO DAILY [facility] Last Admin: 08/31/17 11:57 Dose: 0.6 mg Digoxin (Digoxin) 0.125 mg PO 1400 [facility] Last Admin: 08/31/17 14:00 Dose: 0.125 mg Diltiazem HCl (Cardizem Cd) 180 mg PO DAILY [facility] Last Admin: 08/31/17 11:57 Dose: 180 mg Famotidine (Pepcid) 20 mg PO BID [facility] Last Admin: 08/31/17 17:53 Dose: 20 mg Furosemide (Lasix) 40 mg PO BID [facility] Last Admin: 08/31/17 17:53 Dose: 40 mg Gabapentin (Neurontin) 600 mg PO TID [facility] PRN Reason: Protocol Last Admin: 08/31/17 17:54 Dose: 600 mg Insulin Human Regular (Humulin R Med) 0 units SC ACHS [facility] PRN Reason: Protocol Last Admin: 09/01/17 08:32 Dose: 1 units Spironolactone (Aldactone) 25 mg PO BID [facility] Last Admin: 08/31/17 17:51 Dose: 25 mg Warfarin Sodium (Coumadin) 2.5 mg PO 1800 [facility] PRN Reason: Protocol Last Admin: 08/31/17 17:52 Dose: 2.5 mg - Labs Labs: PT 16.8 SECONDS (9.4-12.5) H 09/01/17 05:30 INR 1.45 (0.93-1.08) H 09/01/17 05:30 - Constitutional Appears: Non-toxic, Chronically Ill - Head Exam Head Exam: NORMAL INSPECTION - ENT Exam ENT Exam: Mucous Membranes Moist - Neck Exam Neck Exam: absent: Meningismus - Respiratory Exam Respiratory Exam: Decreased Breath Sounds - Cardiovascular Exam Cardiovascular Exam: +S1, +S2 - GI/Abdominal Exam GI & Abdominal Exam: Soft. absent: Tenderness - Extremities Exam Additional comments: no more swelling in the knees Assessment and Plan - Assessment and Plan (Free Text) Plan: Assessment Inflammatory arthritis of the right knee due to gout acute renal failure history of right sided HCAP HTN DM CAD S/P CABG peptic ulcer disease atrial fibrillation Plan uric acid crystals were seen in the synovial fluid and cultures are negative - we have discontinued antibiotics and will observe; continue gout medications
[2017-09-01] MEDS: Digoxin 125 mcg (0.125 mg) Tab PO SCH (13:37)
[2017-09-02 06:27] LABS: BASO # 0.05 K/mm3 (0.0-2.0); BASO % 0.6 % (0.0-3.0); EOS # 0.1 (0.0-0.7); EOS % 1.3 % (1.5-5.0); GRAN % 72.6 % (50.0-68.0); HEMOGLOBIN 11.8 g/dL (14.0-18.0); LYMPH # 1.6 (1.2-3.4); LYMPH % 19.4 % (22.0-35.0); MEAN CELL VOLUME 79.4 fl (80.0-105.0); MEAN CORPUSCULAR HEMOGLOBIN 26.2 pg (25.0-35.0); MEAN PLATELET VOLUME 9.8 fl (7.0-11.0); MONO # 0.5 (0.1-0.6); MONO % 6.1 % (1.0-6.0); RBC 4.51 10^6/uL (3.5-6.1); RED CELL DISTRIBUTION WIDTH 21.3 % (11.5-14.5); WHITE BLOOD COUNT 8.3 10^3/ul (4.5-11.0)
[2017-09-02 06:45] LABS: INR 1.37 (0.93-1.08); PROTHROMBIN TIME 15.8 SECONDS (9.4-12.5)
[2017-09-02 06:59] LABS: ALB/GLOB RATIO 1.2 (1.1-1.8); ALT/SGPT 21 U/L (7-56); AST/SGOT 34 U/L (17-59); BLOOD UREA NITROGEN 35 mg/dL (7-21); CALCIUM 9.2 mg/dL (8.4-10.5); GFR AFRICAN-AMERICAN > 60; GFR NON-AFRICAN AMERICAN > 60
[2017-09-02 07:43] LABS: IRON 66 ug/dL (45-180)
[2017-09-02 07:53] LABS: % IRON SATURATION 22 % (20-55); TOTAL IRON BINDING CAPACITY 305 ug/dL (261-462)
[2017-09-02 08:32] VITALS: RESP 19; TEMP 97.8; O2SAT 96
[2017-09-02] MEDS: Insulin Reg-MEDIUM-Coverage SC SCH ×2 (08:54→11:50)
[2017-09-02] MEDS: diltiaZEM 180 mg/24 Hours CD Cap PO SCH (10:24)
[2017-09-02 10:36] VITALS: PULSE 82
--- NOTE | 2017-09-02 11:36 | CP.PCM.DIS ---
<Paramjit Caldwell - Last Filed: 09/02/17 11:31> Provider - Provider Date of Admission: 08/30/17 18:45 Attending physician: Kike Holt MD Primary care physician: Palmer Whalen MD Consults: LISA - Dr. Toan Kapoor - Dr. Trinh Time Spent in preparation of Discharge (in minutes): 25 Hospital Course - Lab Results Lab Results: Most Recent Lab Values WBC 8.3 10^3/ul (4.5-11.0) 09/02/17 05:45 RBC 4.51 10^6/uL (3.5-6.1) 09/02/17 05:45 Hgb 11.8 g/dL (14.0-18.0) L 09/02/17 05:45 Hct 35.8 % (42.0-52.0) L 09/02/17 05:45 MCV 79.4 fl (80.0-105.0) L 09/02/17 05:45 MCH 26.2 pg (25.0-35.0) 09/02/17 05:45 MCHC 33.0 g/dl (31.0-37.0) 09/02/17 05:45 RDW 21.3 % (11.5-14.5) H 09/02/17 05:45 Plt Count 183 10^3/uL (120.0-450.0) 09/02/17 05:45 MPV 9.8 fl (7.0-11.0) 09/02/17 05:45 Gran % 72.6 % (50.0-68.0) H 09/02/17 05:45 Lymph % (Auto) 19.4 % (22.0-35.0) L 09/02/17 05:45 [place] % (Auto) 6.1 % (1.0-6.0) H 09/02/17 05:45 Eos % (Auto) 1.3 % (1.5-5.0) L 09/02/17 05:45 Baso % (Auto) 0.6 % (0.0-3.0) 09/02/17 05:45 Gran # 6.00 (1.4-6.5) 09/02/17 05:45 Lymph # (Auto) 1.6 (1.2-3.4) 09/02/17 05:45 [place] # (Auto) 0.5 (0.1-0.6) 09/02/17 05:45 Eos # (Auto) 0.1 (0.0-0.7) 09/02/17 05:45 Baso # (Auto) 0.05 K/mm3 (0.0-2.0) 09/02/17 05:45 Retic Count 1.68 % (0.5-1.5) H 09/02/17 07:00 PT 15.8 SECONDS (9.4-12.5) H 09/02/17 05:45 INR 1.37 (0.93-1.08) H 09/02/17 05:45 Sodium 139 mmol/L (132-148) 09/02/17 05:45 Potassium 4.2 mmol/L (3.6-5.0) 09/02/17 05:45 Chloride 98 mmol/L (98-107) 09/02/17 05:45 Carbon Dioxide 31 mmol/L (21-33) 09/02/17 05:45 Anion Gap 14 (10-20) 09/02/17 05:45 BUN 35 mg/dL (7-21) H 09/02/17 05:45 Creatinine 1.0 mg/dl (0.8-1.5) 09/02/17 05:45 Est GFR ( Amer) > 60 09/02/17 05:45 Est GFR (Non-Af Amer) > 60 09/02/17 05:45 POC Glucose (mg/dL) 183 mg/dL (65-110) H 09/02/17 07:13 Random Glucose 191 mg/dL (70-110) H 09/02/17 05:45 Uric Acid 11.9 mg/dL (3.5-8.5) H 08/30/17 13:20 Calcium 9.2 mg/dL (8.4-10.5) 09/02/17 05:45 Iron 66 ug/dL (45-180) 09/02/17 07:00 TIBC 305 ug/dL (261-462) 09/02/17 07:00 % Saturation 22 % (20-55) 09/02/17 07:00 Total Bilirubin 0.8 mg/dL (0.2-1.3) 09/02/17 05:45 AST 34 U/L (17-59) 09/02/17 05:45 ALT 21 U/L (7-56) 09/02/17 05:45 Alkaline Phosphatase 47 U/L (38-126) 09/02/17 05:45 Total Protein 7.2 g/dL (5.8-8.3) 09/02/17 05:45 Albumin 4.0 g/dL (3.0-4.8) 09/02/17 05:45 Globulin 3.3 gm/dL 09/02/17 05:45 Albumin/Globulin Ratio 1.2 (1.1-1.8) 09/02/17 05:45 Fluid Type Synovial fluid 08/30/17 15:56 Synovial WBC 74386.0 /uL (0.0-150.0) H 08/30/17 15:56 Synovial RBC 27.5 /uL (0.0-0.0) H 08/30/17 15:56 Synovial Neutrophils 94.0 % (0-0) H 08/30/17 15:56 Synovial Lymphocytes 6.0 % (0-0) H 08/30/17 15:56 Synov Monos/Macrophage % (0-0) 08/30/17 15:56 Synovial Fluid Comment 08/30/17 15:56 - Hospital Course Hospital Course: Patient is a 71yo male with past medical history of hypertension, hyperlipidemia , diabetes mellitus type 2, gout, CAD, atrial fibrillation, systolic CHF (LVEF 35%) that had presented to [facility] with c/o right knee pain for 2 days. He reported right knee swelling, difficulty standing and pain on ambulation. He denied any trauma, fevers, chills, nausea or vomiting. He also denied any chest pain, palpitations, SOB, abdominal pain, focal weakness, numbness, tingling. He was admitted for further evaluation due to concerns for septic arthritis. Orthopedic surgery was consulted and synovial fluid was sent for further analysis. Knee xray revealed no acute fractures/dislocations. He was started on ABX and seen by ID. Culture revealed no growth and fluid analysis revealed uric acid crystals consistent with gout. He was started on colchicine and antibiotics were discontinued. He was evaluated by physical therapy due to deconditioning and subacute rehabilitation was recommended. He was agreeable to discharge to the transitional care unit for physical therapy. Discharge Exam - Head Exam Head Exam: NORMAL INSPECTION - Eye Exam Eye Exam: EOMI, PERRL - ENT Exam ENT Exam: Mucous Membranes Moist - Respiratory Exam Respiratory Exam: Clear to PA & Lateral. absent: Rales, Rhonchi, Wheezes - Cardiovascular Exam Cardiovascular Exam: RRR, +S1, +S2. absent: Clicks, Gallop, JVD, Rubs - GI/Abdominal Exam GI & Abdominal Exam: Soft. absent: Distended, Firm, Guarding, Rebound, Tenderness - Neurological Exam Neurological exam: Alert, CN II-XII Intact, Oriented x3 - Psychiatric Exam Psychiatric exam: Normal Affect, Normal Mood - Skin Skin Exam: Dry, Intact, Normal Color, Warm Discharge Plan - Follow Up Plan Condition: STABLE Disposition: TRANSF TO SNF Instructions: Arthrocentesis Additional Instructions: PATIENT GOING TO TRCU. Referrals: Palmer Whalen MD [Primary Care Provider] - <Kike Holt - Last Filed: 09/02/17 23:08> Provider - Provider Date of Admission: 08/30/17 18:45 Attending physician: Kike Holt MD Primary care physician: Palmer Whalen MD Hospital Course - Lab Results Lab Results: Most Recent Lab Values WBC 8.3 10^3/ul (4.5-11.0) 09/02/17 05:45 RBC 4.51 10^6/uL (3.5-6.1) 09/02/17 05:45 Hgb 11.8 g/dL (14.0-18.0) L 09/02/17 05:45 Hct 35.8 % (42.0-52.0) L 09/02/17 05:45 MCV 79.4 fl (80.0-105.0) L 09/02/17 05:45 MCH 26.2 pg (25.0-35.0) 09/02/17 05:45 MCHC 33.0 g/dl (31.0-37.0) 09/02/17 05:45 RDW 21.3 % (11.5-14.5) H 09/02/17 05:45 Plt Count 183 10^3/uL (120.0-450.0) 09/02/17 05:45 MPV 9.8 fl (7.0-11.0) 09/02/17 05:45 Gran % 72.6 % (50.0-68.0) H 09/02/17 05:45 Lymph % (Auto) 19.4 % (22.0-35.0) L 09/02/17 05:45 [place] % (Auto) 6.1 % (1.0-6.0) H 09/02/17 05:45 Eos % (Auto) 1.3 % (1.5-5.0) L 09/02/17 05:45 Baso % (Auto) 0.6 % (0.0-3.0) 09/02/17 05:45 Gran # 6.00 (1.4-6.5) 09/02/17 05:45 Lymph # (Auto) 1.6 (1.2-3.4) 09/02/17 05:45 [place] # (Auto) 0.5 (0.1-0.6) 09/02/17 05:45 Eos # (Auto) 0.1 (0.0-0.7) 09/02/17 05:45 Baso # (Auto) 0.05 K/mm3 (0.0-2.0) 09/02/17 05:45 Retic Count 1.68 % (0.5-1.5) H 09/02/17 07:00 PT 15.8 SECONDS (9.4-12.5) H 09/02/17 05:45 INR 1.37 (0.93-1.08) H 09/02/17 05:45 Sodium 139 mmol/L (132-148) 09/02/17 05:45 Potassium 4.2 mmol/L (3.6-5.0) 09/02/17 05:45 Chloride 98 mmol/L (98-107) 09/02/17 05:45 Carbon Dioxide 31 mmol/L (21-33) 09/02/17 05:45 Anion Gap 14 (10-20) 09/02/17 05:45 BUN 35 mg/dL (7-21) H 09/02/17 05:45 Creatinine 1.0 mg/dl (0.8-1.5) 09/02/17 05:45 Est GFR ( Amer) > 60 09/02/17 05:45 Est GFR (Non-Af Amer) > 60 09/02/17 05:45 POC Glucose (mg/dL) 232 mg/dL (65-110) H 09/02/17 11:06 Random Glucose 191 mg/dL (70-110) H 09/02/17 05:45 Uric Acid 11.9 mg/dL (3.5-8.5) H 08/30/17 13:20 Calcium 9.2 mg/dL (8.4-10.5) 09/02/17 05:45 Iron 66 ug/dL (45-180) 09/02/17 07:00 TIBC 305 ug/dL (261-462) 09/02/17 07:00 % Saturation 22 % (20-55) 09/02/17 07:00 Ferritin 122.0 ng/mL 09/02/17 07:00 Total Bilirubin 0.8 mg/dL (0.2-1.3) 09/02/17 05:45 AST 34 U/L (17-59) 09/02/17 05:45 ALT 21 U/L (7-56) 09/02/17 05:45 Alkaline Phosphatase 47 U/L (38-126) 09/02/17 05:45 Total Protein 7.2 g/dL (5.8-8.3) 09/02/17 05:45 Albumin 4.0 g/dL (3.0-4.8) 09/02/17 05:45 Globulin 3.3 gm/dL 09/02/17 05:45 Albumin/Globulin Ratio 1.2 (1.1-1.8) 09/02/17 05:45 Fluid Type Synovial fluid 08/30/17 15:56 Synovial WBC 67290.0 /uL (0.0-150.0) H 08/30/17 15:56 Synovial RBC 27.5 /uL (0.0-0.0) H 08/30/17 15:56 Synovial Neutrophils 94.0 % (0-0) H 08/30/17 15:56 Synovial Lymphocytes 6.0 % (0-0) H 08/30/17 15:56 Synov Monos/Macrophage % (0-0) 08/30/17 15:56 Synovial Fluid Comment 08/30/17 15:56 - Hospital Course Hospital Course: Pt seen and examined. I have reviewed the note of the medical sociologist and agree with it. I have discussed the assessment and plan with the resident. I have reviewed the patient's labs and medications. Pt going to TCU today. He is able to ambulate. His pain is controlled. BP controlled.
[2017-09-02 11:53] VITALS: BP 120/72
--- NOTE | 2017-09-02 12:57 | CP.PCM.PN ---
Subjective - Date & Time of Evaluation Date of Evaluation: 09/02/17 Time of Evaluation: 09:10 - Subjective Subjective: Improved movement and pain in the knee, no fevers, not in distress. Objective - Vital Signs/Intake and Output Vital Signs (last 24 hours): Temp Pulse Resp BP Pulse Ox 97.8 F 55 L 19 124/68 96 09/02/17 08:32 09/01/17 17:49 09/02/17 08:32 09/02/17 08:32 09/02/17 08:32 Intake and Output: 09/02/17 09/02/17 06:59 18:59 Intake Total 240 Balance 240 - Medications Medications: Current Medications Acetaminophen (Tylenol 325mg Tab) 650 mg PO Q6H PRN PRN Reason: Pain, moderate (4-7) Last Admin: 09/02/17 04:25 Dose: 650 mg Carvedilol (Coreg) 25 mg PO BID [facility] Last Admin: 09/01/17 17:27 Dose: 25 mg Colchicine (Colocrys) 0.6 mg PO DAILY [facility] Last Admin: 09/01/17 10:08 Dose: 0.6 mg Digoxin (Digoxin) 0.125 mg PO 1400 [facility] Last Admin: 09/01/17 13:37 Dose: 0.125 mg Diltiazem HCl (Cardizem Cd) 180 mg PO DAILY [facility] Last Admin: 09/01/17 10:07 Dose: 180 mg Famotidine (Pepcid) 20 mg PO BID [facility] Last Admin: 09/01/17 17:26 Dose: 20 mg Furosemide (Lasix) 40 mg PO BID [facility] Last Admin: 09/01/17 17:26 Dose: 40 mg Gabapentin (Neurontin) 1,200 mg PO HS [facility] PRN Reason: Protocol Gabapentin (Neurontin) 600 mg PO BID [facility] PRN Reason: Protocol Insulin Human Regular (Humulin R Med) 0 units SC ACHS [facility] PRN Reason: Protocol Last Admin: 09/01/17 21:54 Dose: Not Given Nicotine (Nicoderm Cq) 1 patch TD DAILY [facility] Last Admin: 09/01/17 17:27 Dose: 1 patch Spironolactone (Aldactone) 25 mg PO BID [facility] Last Admin: 09/01/17 17:25 Dose: 25 mg Warfarin Sodium (Coumadin) 3 mg PO 1800 [facility] PRN Reason: Protocol - Labs Labs: 09/02/17 05:45 09/02/17 05:45 PT 15.8 SECONDS (9.4-12.5) H 09/02/17 05:45 INR 1.37 (0.93-1.08) H 09/02/17 05:45 - Constitutional Appears: Non-toxic, Chronically Ill - Head Exam Head Exam: NORMAL INSPECTION - Respiratory Exam Respiratory Exam: Decreased Breath Sounds - Cardiovascular Exam Cardiovascular Exam: +S1, +S2 - GI/Abdominal Exam GI & Abdominal Exam: Soft. absent: Tenderness Assessment and Plan - Assessment and Plan (Free Text) Plan: Assessment Inflammatory arthritis of the right knee due to gout, clinically improving acute renal failure history of right sided HCAP HTN DM CAD S/P CABG peptic ulcer disease atrial fibrillation Plan uric acid crystals were seen in the synovial fluid and cultures are negative - we have discontinued antibiotics and will continue to observe; continue gout medications
[2017-09-02] MEDS: Digoxin 125 mcg (0.125 mg) Tab PO SCH (13:31)
[2017-09-02 13:34] VITALS: PULSE 86
--- NOTE | 2017-09-02 13:52 | CP.PCM.CON ---
History of Present Illness - History of Present Illness History of Present Illness: 71 y/o male with PMHx of CAD, atrial fibrillation, systolic CHF, HTN, HLD, DM type II, gout seen at bedside this morning for thickened painful dystrophic toenails and right foot painful callus. Pt sees Dr. George on a regular basis for diabetic foot care. Pt states his nails get painful on his left foot as they grow longer. Also states he has pain in the right foot where he gets a recurrent callus. Admits to occasional mild tingling in the lower extremities. Denies numbness or burning. Denies F/C/N/V/CP/SOB. Denies history of open foot ulcerations. Review of Systems - Review of Systems All systems: reviewed and no additional remarkable complaints except (per HPI) Past Patient History - Infectious Disease Hx of Infectious Diseases: None - Tetanus Immunizations Tetanus Immunization: Unknown - Past Social History Smoking Status: Heavy Smoker > 10 Cigarettes Daily - CARDIAC Hx Cardiac Disorders: Yes (CAD, S/P CABG, Afib) - PULMONARY Hx Respiratory Disorders: No - NEUROLOGICAL Hx Neurological Disorder: Yes Hx Seizures: Yes - HEENT Hx HEENT Problems: No - RENAL Hx Chronic Kidney Disease: No - ENDOCRINE/METABOLIC Hx Diabetes Mellitus Type 2: Yes - HEMATOLOGICAL/ONCOLOGICAL Hx Blood Disorders: Yes Hx Cancer: Yes (bladder CA) - INTEGUMENTARY Hx Dermatological Problems: No - MUSCULOSKELETAL/RHEUMATOLOGICAL Hx Arthritis: Yes - GASTROINTESTINAL Hx Gastrointestinal Disorders: No - GENITOURINARY/GYNECOLOGICAL Hx Genitourinary Disorders: No - PSYCHIATRIC Hx Psychophysiologic Disorder: No Hx Substance Use: No - SURGICAL HISTORY Hx Cardiac Catheterization: Yes Hx Coronary Stent: Yes - ANESTHESIA Hx Anesthesia: Yes Hx Anesthesia Reactions: No Hx Malignant Hyperthermia: No Meds Home Medications: Home Medication List Medication Instructions Recorded Confirmed Type Acetaminophen [Tylenol 325mg tab] 650 mg PO Q6H PRN tab 09/02/17 Rx Carvedilol [Coreg] 25 mg PO BID tab 09/02/17 Rx Digoxin 0.125 mg PO 1400 tab 09/02/17 Rx Famotidine [Pepcid] 20 mg PO BID tab 09/02/17 Rx Furosemide [Lasix] 40 mg PO BID tab 09/02/17 Rx Gabapentin [Neurontin] 1,200 mg PO HS tab 09/02/17 Rx Gabapentin [Neurontin] 600 mg PO BID tab 09/02/17 Rx Insulin Human Regular-MED [HumuLIN 0 units SC ACHS ml 09/02/17 Rx R MED] Nicotine 21 mg/24 hr [Nicoderm Cq] 1 patch TD DAILY patch 09/02/17 Rx Spironolactone [Aldactone] 25 mg PO BID tab 09/02/17 Rx Warfarin [Coumadin] 1 mg PO 1800 tab 09/02/17 Rx Warfarin [Coumadin] 2.5 mg PO 1800 tab 09/02/17 Rx diltiaZEM CD [Cardizem CD] 180 mg PO DAILY cap 09/02/17 Rx Allergies/Adverse Reactions: Allergies Allergy/AdvReac Type Severity Reaction Status Date / Time No Known Allergies Allergy Verified 09/02/17 15:44 - Medications Medications: Current Medications Acetaminophen (Tylenol 325mg Tab) 650 mg PO Q6H PRN PRN Reason: Pain, moderate (4-7) Last Admin: 09/02/17 04:25 Dose: 650 mg Carvedilol (Coreg) 25 mg PO BID [facility] Last Admin: 09/02/17 10:25 Dose: 25 mg Colchicine (Colocrys) 0.6 mg PO DAILY [facility] Last Admin: 09/02/17 10:24 Dose: 0.6 mg Digoxin (Digoxin) 0.125 mg PO 1400 [facility] Last Admin: 09/02/17 13:31 Dose: 0.125 mg Diltiazem HCl (Cardizem Cd) 180 mg PO DAILY [facility] Last Admin: 09/02/17 10:24 Dose: 180 mg Famotidine (Pepcid) 20 mg PO BID [facility] Last Admin: 09/02/17 10:24 Dose: 20 mg Furosemide (Lasix) 40 mg PO BID [facility] Last Admin: 09/02/17 11:51 Dose: 40 mg Gabapentin (Neurontin) 1,200 mg PO HS [facility] PRN Reason: Protocol Gabapentin (Neurontin) 600 mg PO BID [facility] PRN Reason: Protocol Last Admin: 09/02/17 10:27 Dose: 600 mg Insulin Human Regular (Humulin R Med) 0 units SC ACHS [facility] PRN Reason: Protocol Last Admin: 09/02/17 11:50 Dose: 3 units Nicotine (Nicoderm Cq) 1 patch TD DAILY [facility] Last Admin: 09/02/17 10:29 Dose: 1 patch Spironolactone (Aldactone) 25 mg PO BID [facility] Last Admin: 09/02/17 10:25 Dose: 25 mg Warfarin Sodium (Coumadin) 2.5 mg PO 1800 [facility] PRN Reason: Protocol Warfarin Sodium (Coumadin) 1 mg PO 1800 [facility] Physical Exam - Constitutional Appears: Well, Non-toxic, No Acute Distress - Extremities Exam Additional comments: Lower extremity exam: Vasc: DP/PT pulses palpable 2/4. Temperature gradient warm to cool. CFT < 3 sec to all digits on L foot and WNL to right foot TMA stump. - Neurological Exam Neurological exam: Alert, Oriented x3 - Psychiatric Exam Psychiatric exam: Normal Affect, Normal Mood Results - Vital Signs Recent Vital Signs: Last Vital Signs Temp 97.8 F 09/02/17 08:32 Pulse 82 09/02/17 10:25 Resp 19 09/02/17 08:32 BP 120/72 09/02/17 11:51 Pulse Ox 96 09/02/17 08:32 - Labs Result Diagrams: 09/02/17 05:45 09/02/17 05:45 Labs: Laboratory Results - last 24 hr 09/01/17 09/01/17 09/01/17 11:02 16:44 21:34 WBC RBC Hgb Hct MCV MCH MCHC RDW Plt Count MPV Gran % Lymph % (Auto) [place] % (Auto) Eos % (Auto) Baso % (Auto) Gran # Lymph # (Auto) [place] # (Auto) Eos # (Auto) Baso # (Auto) Retic Count PT INR Sodium Potassium Chloride Carbon Dioxide Anion Gap BUN Creatinine Est GFR ( Amer) Est GFR (Non-Af Amer) POC Glucose (mg/dL) 243 H 233 H 233 H Random Glucose Calcium Iron TIBC % Saturation Ferritin Total Bilirubin AST ALT Alkaline Phosphatase Total Protein Albumin Globulin Albumin/Globulin Ratio 09/02/17 09/02/17 09/02/17 05:45 05:45 05:45 WBC 8.3 RBC 4.51 Hgb 11.8 L Hct 35.8 L MCV 79.4 L MCH 26.2 MCHC 33.0 RDW 21.3 H Plt Count 183 MPV 9.8 Gran % 72.6 H Lymph % (Auto) 19.4 L [place] % (Auto) 6.1 H Eos % (Auto) 1.3 L Baso % (Auto) 0.6 Gran # 6.00 Lymph # (Auto) 1.6 [place] # (Auto) 0.5 Eos # (Auto) 0.1 Baso # (Auto) 0.05 Retic Count PT 15.8 H INR 1.37 H Sodium 139 Potassium 4.2 Chloride 98 Carbon Dioxide 31 Anion Gap 14 BUN 35 H Creatinine 1.0 Est GFR ( Amer) > 60 Est GFR (Non-Af Amer) > 60 POC Glucose (mg/dL) Random Glucose 191 H Calcium 9.2 Iron TIBC % Saturation Ferritin Total Bilirubin 0.8 AST 34 ALT 21 Alkaline Phosphatase 47 Total Protein 7.2 Albumin 4.0 Globulin 3.3 Albumin/Globulin Ratio 1.2 09/02/17 09/02/17 09/02/17 07:00 07:00 07:00 WBC RBC Hgb Hct MCV MCH MCHC RDW Plt Count MPV Gran % Lymph % (Auto) [place] % (Auto) Eos % (Auto) Baso % (Auto) Gran # Lymph # (Auto) [place] # (Auto) Eos # (Auto) Baso # (Auto) Retic Count 1.68 H PT INR Sodium Potassium Chloride Carbon Dioxide Anion Gap BUN Creatinine Est GFR ( Amer) Est GFR (Non-Af Amer) POC Glucose (mg/dL) Random Glucose Calcium Iron 66 TIBC 305 % Saturation 22 Ferritin 122.0 Total Bilirubin AST ALT Alkaline Phosphatase Total Protein Albumin Globulin Albumin/Globulin Ratio 09/02/17 07:13 WBC RBC Hgb Hct MCV MCH MCHC RDW Plt Count MPV Gran % Lymph % (Auto) [place] % (Auto) Eos % (Auto) Baso % (Auto) Gran # Lymph # (Auto) [place] # (Auto) Eos # (Auto) Baso # (Auto) Retic Count PT INR Sodium Potassium Chloride Carbon Dioxide Anion Gap BUN Creatinine Est GFR ( Amer) Est GFR (Non-Af Amer) POC Glucose (mg/dL) 183 H Random Glucose Calcium Iron TIBC % Saturation Ferritin Total Bilirubin AST ALT Alkaline Phosphatase Total Protein Albumin Globulin Albumin/Globulin Ratio
== END 2017-09-02 14:41 | DRG 554 ==
LOC: ED 12:08 → ERH 18:45 → 3RSO 20:51
PROVIDERS: ADMIT Internal Medicine Nephrology; ATTEND Internal Medicine Nephrology
PROC: 0S9C3ZZ Drainage of Right Knee Joint, Percutaneous Approach (ICD-10-PCS; principal; 2017-08-30)
DX: M10.9 Gout, unspecified (principal); N17.9 Acute kidney failure, unspecified; I50.22 Chronic systolic (congestive) heart failure; M13.861 Other specified arthritis, right knee; M06.4 Inflammatory polyarthropathy; M17.11 Unilateral primary osteoarthritis, right knee; E11.9 Type 2 diabetes mellitus without complications; E78.5 Hyperlipidemia, unspecified; I11.0 Hypertensive heart disease with heart failure; I25.10 Atherosclerotic heart disease of native coronary artery without angina pectoris; I48.91 Unspecified atrial fibrillation; Z79.01 Long term (current) use of anticoagulants; Z79.82 Long term (current) use of aspirin; Z79.899 Other long term (current) drug therapy; Z85.51 Personal history of malignant neoplasm of bladder; Z87.11 Personal history of peptic ulcer disease; F17.210 Nicotine dependence, cigarettes, uncomplicated; Z95.1 Presence of aortocoronary bypass graft; Z95.5 Presence of coronary angioplasty implant and graft; M25.461 Effusion, right knee; Z86.69 Personal history of other diseases of the nervous system and sense organs; Z87.01 Personal history of pneumonia (recurrent)

== ENCOUNTER 2017-09-02 14:22 | Inpatient (IN) | payer OTHER, MEDICARE ==
[2017-09-02 15:20] VITALS: BMI 21.6
[2017-09-02] MEDS: Insulin Reg-MEDIUM-Coverage SC SCH ×2 (17:43→21:43)
[2017-09-02] MEDS ORDERED: Pneumococcal 23-Valent Vaccine IM ONE (18:24)
[2017-09-03] MEDS: Insulin Reg-MEDIUM-Coverage SC SCH ×4 (06:58→22:02)
[2017-09-03 07:12] LABS: BASO # 0.14 K/mm3 (0.0-2.0); BASO % 1.9 % (0.0-3.0); EOS # 0.2 (0.0-0.7); EOS % 2.2 % (1.5-5.0); GRAN # 4.62 (1.4-6.5); GRAN % 62.9 % (50.0-68.0); HEMOGLOBIN 12.4 g/dL (14.0-18.0); LYMPH # 1.8 (1.2-3.4); LYMPH % 24.8 % (22.0-35.0); MEAN CELL VOLUME 78.7 fl (80.0-105.0); MEAN CORPUSCULAR HEMOGLOBIN 26.1 pg (25.0-35.0); MEAN CORPUSCULAR HGB CONC 33.2 g/dl (31.0-37.0); MEAN PLATELET VOLUME 9.3 fl (7.0-11.0); MONO # 0.6 (0.1-0.6); MONO % 8.2 % (1.0-6.0); RBC 4.75 10^6/uL (3.5-6.1); RED CELL DISTRIBUTION WIDTH 20.9 % (11.5-14.5); WHITE BLOOD COUNT 7.3 10^3/ul (4.5-11.0)
[2017-09-03 07:14] LABS: INR 1.27 (0.93-1.08); PROTHROMBIN TIME 14.7 SECONDS (9.4-12.5)
[2017-09-03 07:46] LABS: ALB/GLOB RATIO 1.1 (1.1-1.8); ALBUMIN 4.2 g/dL (3.0-4.8); ALT/SGPT 26 U/L (7-56); AST/SGOT 32 U/L (17-59); BLOOD UREA NITROGEN 42 mg/dL (7-21); CALCIUM 9.5 mg/dL (8.4-10.5); GFR AFRICAN-AMERICAN > 60; GFR NON-AFRICAN AMERICAN > 60
[2017-09-03] MEDS: diltiaZEM 180 mg/24 Hours CD Cap PO SCH (09:04)
--- NOTE | 2017-09-03 09:13 | CP.PCM.HP ---
<Paramjit Caldwell - Last Filed: 09/03/17 09:16> History of Present Illness - History of Present Illness History of Present Illness: Medicine H&P for Dr. Holt's service - Shakira Caldwell PGY3 HPI: Patient is a 71yo male with past medical history of hypertension, hyperlipidemia, diabetes mellitus type 2, gout, CAD, atrial fibrillation, systolic CHF (LVEF 35%) that originally presented to [facility] with c/o right knee pain for 2 days. He reported right knee swelling, difficulty standing and pain on ambulation. He denied any trauma, fevers, chills , nausea or vomiting. He also denied any chest pain, palpitations, SOB, abdominal pain, focal weakness, numbness, tingling. He was admitted for further evaluation due to concerns for septic arthritis. Orthopedic surgery was consulted and synovial fluid was sent for further analysis. Knee xray revealed no acute fractures/dislocations. He was started on ABX and seen by ID. Culture revealed no growth and fluid analysis revealed uric acid crystals consistent with gout. He was started on colchicine and antibiotics were discontinued. He was evaluated by physical therapy due to deconditioning and subacute rehabilitation was recommended. He was subsequently sent to the transitional care unit for further rehabilitation. 12point ROS as per above otherwise negative PMH: as stated above PSH: permanent pacemaker implantation Allergies: NKDA Family Hx: reviewed, non-contributory Social Hx: Lives at home alone, denies alcohol and illicit drug use PMD: Dr. Whalen Present on Admission - Present on Admission Any Indicators Present on Admission: No Past Patient History - Infectious Disease Hx of Infectious Diseases: None - Tetanus Immunizations Tetanus Immunization: Unknown - Past Social History Smoking Status: Heavy Smoker > 10 Cigarettes Daily - CARDIAC Hx Cardiac Disorders: Yes (CAD, S/P CABG, Afib) - PULMONARY Hx Respiratory Disorders: No - NEUROLOGICAL Hx Neurological Disorder: Yes Hx Seizures: Yes - HEENT Hx HEENT Problems: No - RENAL Hx Chronic Kidney Disease: No - ENDOCRINE/METABOLIC Hx Diabetes Mellitus Type 2: Yes - HEMATOLOGICAL/ONCOLOGICAL Hx Blood Disorders: Yes Hx Cancer: Yes (bladder CA) - INTEGUMENTARY Hx Dermatological Problems: No - MUSCULOSKELETAL/RHEUMATOLOGICAL Hx Falls: No - GASTROINTESTINAL Hx Gastrointestinal Disorders: Yes (POOR APPETITE) - GENITOURINARY/GYNECOLOGICAL Hx Genitourinary Disorders: No Hx Reproductive Disorders: No - PSYCHIATRIC Hx Psychophysiologic Disorder: No Hx Substance Use: No - SURGICAL HISTORY Hx Cardiac Catheterization: Yes Hx Coronary Stent: Yes - ANESTHESIA Hx Anesthesia: Yes Hx Anesthesia Reactions: No Hx Malignant Hyperthermia: No Meds Allergies/Adverse Reactions: Allergies Allergy/AdvReac Type Severity Reaction Status Date / Time No Known Allergies Allergy Verified 09/02/17 15:44 Physical Exam - Constitutional Appears: No Acute Distress - Head Exam Head Exam: ATRAUMATIC, NORMAL INSPECTION, NORMOCEPHALIC - Eye Exam Eye Exam: EOMI Pupil Exam: PERRL - ENT Exam ENT Exam: Mucous Membranes Moist - Neck Exam Neck exam: Positive for: Normal Inspection - Respiratory Exam Respiratory Exam: Clear to Auscultation Bilateral. absent: Rales, Rhonchi, Wheezes - Cardiovascular Exam Cardiovascular Exam: Irregular Rhythm, +S1, +S2. absent: Gallop, JVD, Rubs - GI/Abdominal Exam GI & Abdominal Exam: Soft. absent: Distended, Firm, Guarding, Rebound, Tenderness - Extremities Exam Extremities exam: Negative for: calf tenderness - Neurological Exam Neurological exam: Alert, CN II-XII Intact, Oriented x3 - Psychiatric Exam Psychiatric exam: Normal Affect, Normal Mood - Skin Skin Exam: Dry, Intact, Normal Color, Warm Results - Vital Signs Recent Vital Signs: Last Vital Signs Temp 98.3 F 09/02/17 18:03 Pulse 46 L 09/03/17 09:04 Resp 18 09/02/17 18:03 BP 123/63 09/03/17 09:05 Pulse Ox 96 09/02/17 14:25 - Labs Result Diagrams: 09/03/17 06:30 09/03/17 06:30 Labs: Laboratory Results - last 24 hr 09/02/17 09/02/17 09/03/17 17:42 21:41 05:06 WBC RBC Hgb Hct MCV MCH MCHC RDW Plt Count MPV Gran % Lymph % (Auto) [place] % (Auto) Eos % (Auto) Baso % (Auto) Gran # Lymph # (Auto) [place] # (Auto) Eos # (Auto) Baso # (Auto) PT INR Sodium Potassium Chloride Carbon Dioxide Anion Gap BUN Creatinine Est GFR ( Amer) Est GFR (Non-Af Amer) POC Glucose (mg/dL) 198 H 281 H 192 H Random Glucose Calcium Total Bilirubin AST ALT Alkaline Phosphatase Total Protein Albumin Globulin Albumin/Globulin Ratio 09/03/17 09/03/17 09/03/17 06:30 06:30 06:30 WBC 7.3 RBC 4.75 Hgb 12.4 L Hct 37.4 L MCV 78.7 L MCH 26.1 MCHC 33.2 RDW 20.9 H Plt Count 182 MPV 9.3 Gran % 62.9 Lymph % (Auto) 24.8 [place] % (Auto) 8.2 H Eos % (Auto) 2.2 Baso % (Auto) 1.9 Gran # 4.62 Lymph # (Auto) 1.8 [place] # (Auto) 0.6 Eos # (Auto) 0.2 Baso # (Auto) 0.14 PT 14.7 H INR 1.27 H Sodium 141 Potassium 4.5 Chloride 98 Carbon Dioxide 31 Anion Gap 16 BUN 42 H Creatinine 1.1 Est GFR ( Amer) > 60 Est GFR (Non-Af Amer) > 60 POC Glucose (mg/dL) Random Glucose 187 H Calcium 9.5 Total Bilirubin 0.9 AST 32 ALT 26 Alkaline Phosphatase 45 Total Protein 7.9 Albumin 4.2 Globulin 3.7 Albumin/Globulin Ratio 1.1 Assessment & Plan - Assessment and Plan (Free Text) Plan: 71yo male with history of hypertension, hyperlipidemia, DM type 2, gout, afib on coumadin presents with c/o right-sided knee pain for past 2 days associated with difficulty ambulation secondary to acute gout flare 1. Deconditioning 2. Acute gout flare 3. Hx of hypertension 4. Hx of hyperlipidemia 5. DM type 2 6. Hx of afib on coumadin 7. Hx of systolic CHF (EF 35%), compensated -Patient encouraged to continue with physical therapy for strengthening -His coumadin was increased to 5mg due to downtrending INR, will trend INR daily -The patient is currently on colchicine for gout flare -Synovial fluid revealed gout crystals; Culture negative, Uric acid elevated -Cefepime was discontinued -He is on digoxin, cardizem and warfarin for his history of atrial fibrillation as well as coreg, aldactone and lasix for his CHF -He is on pepcid for GI prophylaxis/GERD -Consistent carb diet, fingersticks ACHS with insulin sliding scale coverage Patient seen and case discussed/reviewed with attending, Dr. Holt <Kike Holt S - Last Filed: 09/03/17 23:27> Results - Vital Signs Recent Vital Signs: Last Vital Signs Temp 97.5 F L 09/03/17 16:00 Pulse 44 L 09/03/17 16:00 Resp 18 09/03/17 16:00 BP 135/73 09/03/17 17:36 Pulse Ox 96 09/03/17 16:00 - Labs Result Diagrams: 09/03/17 06:30 09/03/17 06:30 Labs: Laboratory Results - last 24 hr 09/03/17 09/03/17 09/03/17 05:06 06:30 06:30 WBC 7.3 RBC 4.75 Hgb 12.4 L Hct 37.4 L MCV 78.7 L MCH 26.1 MCHC 33.2 RDW 20.9 H Plt Count 182 MPV 9.3 Gran % 62.9 Lymph % (Auto) 24.8 [place] % (Auto) 8.2 H Eos % (Auto) 2.2 Baso % (Auto) 1.9 Gran # 4.62 Lymph # (Auto) 1.8 [place] # (Auto) 0.6 Eos # (Auto) 0.2 Baso # (Auto) 0.14 PT 14.7 H INR 1.27 H Sodium Potassium Chloride Carbon Dioxide Anion Gap BUN Creatinine Est GFR ( Amer) Est GFR (Non-Af Amer) POC Glucose (mg/dL) 192 H Random Glucose Calcium Ferritin Total Bilirubin AST ALT Alkaline Phosphatase Total Protein Albumin Globulin Albumin/Globulin Ratio 09/03/17 09/03/17 09/03/17 06:30 11:17 16:43 WBC RBC Hgb Hct MCV MCH MCHC RDW Plt Count MPV Gran % Lymph % (Auto) [place] % (Auto) Eos % (Auto) Baso % (Auto) Gran # Lymph # (Auto) [place] # (Auto) Eos # (Auto) Baso # (Auto) PT INR Sodium 141 Potassium 4.5 Chloride 98 Carbon Dioxide 31 Anion Gap 16 BUN 42 H Creatinine 1.1 Est GFR ( Amer) > 60 Est GFR (Non-Af Amer) > 60 POC Glucose (mg/dL) 197 H 221 H Random Glucose 187 H Calcium 9.5 Ferritin 109.0 Total Bilirubin 0.9 AST 32 ALT 26 Alkaline Phosphatase 45 Total Protein 7.9 Albumin 4.2 Globulin 3.7 Albumin/Globulin Ratio 1.1 09/03/17 21:45 WBC RBC Hgb Hct MCV MCH MCHC RDW Plt Count MPV Gran % Lymph % (Auto) [place] % (Auto) Eos % (Auto) Baso % (Auto) Gran # Lymph # (Auto) [place] # (Auto) Eos # (Auto) Baso # (Auto) PT INR Sodium Potassium Chloride Carbon Dioxide Anion Gap BUN Creatinine Est GFR ( Amer) Est GFR (Non-Af Amer) POC Glucose (mg/dL) 239 H Random Glucose Calcium Ferritin Total Bilirubin AST ALT Alkaline Phosphatase Total Protein Albumin Globulin Albumin/Globulin Ratio Assessment & Plan - Assessment and Plan (Free Text) Plan: Pt seen and examined. I have reviewed the note of the mobile paramedical examiner and agree with it. I have discussed the assessment and plan with the resident. I have reviewed the patient's labs and medications. Pt is on TCU for rehab. On Coumadin for A fib, dosage was increased. Pain is controlled.
--- NOTE | 2017-09-03 11:50 | CP.PCM.CON ---
History of Present Illness - History of Present Illness History of Present Illness: 71 year old male with PMH of HTN, DM, CAD S/P CABG, peptic ulcer disease, atrial fibrillation, gout initially came in to [facility] complaining of right knee pain and swelling. Thoracentesis was done which showed gout. He has been doing well and is now transferred to [facility] for continued medical therapy and physical rehabilitation. Infectious Diseases consult is requested to see if the patient still needs antibiotics. He is currently resting comfortably in bed, no fever or chills, no vomiting, no diarrhea. Review of Systems - Review of Systems All systems: reviewed and no additional remarkable complaints except (as per HPI ) Past Patient History - Infectious Disease Hx of Infectious Diseases: None - Tetanus Immunizations Tetanus Immunization: Unknown - Past Social History Smoking Status: Heavy Smoker > 10 Cigarettes Daily - CARDIAC Hx Cardiac Disorders: Yes (CAD, S/P CABG, Afib) - PULMONARY Hx Respiratory Disorders: No - NEUROLOGICAL Hx Neurological Disorder: Yes Hx Seizures: Yes - HEENT Hx HEENT Problems: No - RENAL Hx Chronic Kidney Disease: No - ENDOCRINE/METABOLIC Hx Diabetes Mellitus Type 2: Yes - HEMATOLOGICAL/ONCOLOGICAL Hx Blood Disorders: Yes Hx Cancer: Yes (bladder CA) - INTEGUMENTARY Hx Dermatological Problems: No - MUSCULOSKELETAL/RHEUMATOLOGICAL Hx Falls: No - GASTROINTESTINAL Hx Gastrointestinal Disorders: Yes (POOR APPETITE) - GENITOURINARY/GYNECOLOGICAL Hx Genitourinary Disorders: No Hx Reproductive Disorders: No - PSYCHIATRIC Hx Psychophysiologic Disorder: No Hx Substance Use: No - SURGICAL HISTORY Hx Cardiac Catheterization: Yes Hx Coronary Stent: Yes - ANESTHESIA Hx Anesthesia: Yes Hx Anesthesia Reactions: No Hx Malignant Hyperthermia: No Meds Allergies/Adverse Reactions: Allergies Allergy/AdvReac Type Severity Reaction Status Date / Time No Known Allergies Allergy Verified 09/02/17 15:44 - Medications Medications: Current Medications Acetaminophen (Tylenol 325mg Tab) 650 mg PO Q6H PRN PRN Reason: Pain, moderate (4-7) Last Admin: 09/02/17 21:18 Dose: 650 mg Carvedilol (Coreg) 25 mg PO BID [facility] Last Admin: 09/02/17 17:36 Dose: 25 mg Colchicine (Colocrys) 0.6 mg PO DAILY [facility] Digoxin (Digoxin) 0.125 mg PO 1400 [facility] Diltiazem HCl (Cardizem Cd) 180 mg PO DAILY [facility] Famotidine (Pepcid) 20 mg PO BID [facility] Last Admin: 09/02/17 17:38 Dose: 20 mg Furosemide (Lasix) 40 mg PO BID [facility] Last Admin: 09/02/17 17:37 Dose: 40 mg Gabapentin (Neurontin) 600 mg PO BID [facility] PRN Reason: Protocol Last Admin: 09/02/17 17:37 Dose: 600 mg Gabapentin (Neurontin) 1,200 mg PO HS [facility] PRN Reason: Protocol Last Admin: 09/02/17 21:32 Dose: 1,200 mg Insulin Human Regular (Humulin R Med) 0 units SC ACHS [facility] PRN Reason: Protocol Last Admin: 09/02/17 17:43 Dose: 1 unit Nicotine (Nicoderm Cq) 1 patch TD DAILY [facility] Spironolactone (Aldactone) 25 mg PO BID [facility] Last Admin: 09/02/17 17:33 Dose: 25 mg Warfarin Sodium (Coumadin) 1 mg PO 1800 [facility] PRN Reason: Protocol Last Admin: 09/02/17 17:36 Dose: 1 mg Warfarin Sodium (Coumadin) 2.5 mg PO 1800 [facility] PRN Reason: Protocol Last Admin: 09/02/17 17:37 Dose: 2.5 mg Physical Exam - Constitutional Appears: Non-toxic - Head Exam Head Exam: NORMAL INSPECTION - Cardiovascular Exam Cardiovascular Exam: +S1, +S2 - GI/Abdominal Exam GI & Abdominal Exam: Soft. absent: Tenderness Results - Vital Signs Recent Vital Signs: Last Vital Signs Temp 98.3 F 09/02/17 18:03 Pulse 46 L 09/02/17 18:03 Resp 18 09/02/17 18:03 BP 129/70 09/02/17 18:03 Pulse Ox 96 09/02/17 14:25 - Labs Result Diagrams: 09/03/17 06:30 09/03/17 06:30 Labs: Laboratory Results - last 24 hr 09/02/17 17:42 POC Glucose (mg/dL) 198 H Assessment & Plan - Assessment and Plan (Free Text) Plan: Assessment Inflammatory arthritis of the right knee due to gout, clinically improving acute renal failure history of right sided HCAP HTN DM CAD S/P CABG peptic ulcer disease atrial fibrillation Plan uric acid crystals were seen in the synovial fluid and cultures are negative - we will continue to monitor off antibiotics continue gout medications
[2017-09-03] MEDS: Digoxin 125 mcg (0.125 mg) Tab PO SCH (14:34)
--- NOTE | 2017-09-03 14:34 | CON ---
DATE: ORTHOPEDIC CONSULTATION LOCATION: A 71-year-old male in room 304, bed 1. HISTORY OF PRESENT ILLNESS: The patient was seen on 08/30/2017 on another floor for acutely swollen right knee and was supposed to be having infection now, but we took the fluid out, it came back positive for uric acid crystals and negative for culture and the white count elevation in the fluid is from inflammatory arthritis consistent with gouty arthritis. So, I saw him today. Now was back on 08/30/2017. Today, 09/03/2017 his knee is much better. There is no evidence of undue swelling. He has good range of motion. I told him just to watch the food substances that have a high uric acid like fish and alcohol, so he thinks that he feels better. We would be glad to give him another Toradol shot today and hopefully, if he does well then might be able to follow up with the medical front desk specialist. FINAL DIAGNOSIS: No infection of the right knee, but he does have some uric acid crystals consistent with gouty arthritis of the right knee. Michoacano Trinh DO
[2017-09-04] MEDS: Insulin Reg-MEDIUM-Coverage SC SCH ×4 (06:37→22:07)
[2017-09-04] MEDS: diltiaZEM 180 mg/24 Hours CD Cap PO SCH (10:22)
--- NOTE | 2017-09-04 12:27 | CP.PCM.PN ---
Subjective - Date & Time of Evaluation Date of Evaluation: 09/03/17 Time of Evaluation: 11:40 - Subjective Subjective: No fevers, improved knee pain, not in distress. Objective - Vital Signs/Intake and Output Vital Signs (last 24 hours): Temp Pulse Resp BP Pulse Ox 97.5 F L 44 L 18 135/73 96 09/03/17 16:00 09/03/17 16:00 09/03/17 16:00 09/03/17 17:36 09/03/17 16:00 - Medications Medications: Current Medications Acetaminophen (Tylenol 325mg Tab) 650 mg PO Q6H PRN PRN Reason: Pain, moderate (4-7) Last Admin: 09/03/17 22:04 Dose: 650 mg Carvedilol (Coreg) 25 mg PO BID [facility] Last Admin: 09/03/17 17:35 Dose: 25 mg Colchicine (Colocrys) 0.6 mg PO DAILY [facility] Last Admin: 09/03/17 09:04 Dose: 0.6 mg Digoxin (Digoxin) 0.125 mg PO 1400 [facility] Last Admin: 09/03/17 14:34 Dose: Not Given Diltiazem HCl (Cardizem Cd) 180 mg PO DAILY [facility] Last Admin: 09/03/17 09:04 Dose: 180 mg Famotidine (Pepcid) 20 mg PO BID [facility] Last Admin: 09/03/17 17:36 Dose: 20 mg Furosemide (Lasix) 40 mg PO BID [facility] Last Admin: 09/03/17 17:36 Dose: 40 mg Gabapentin (Neurontin) 600 mg PO BID [facility] PRN Reason: Protocol Last Admin: 09/03/17 17:36 Dose: 600 mg Gabapentin (Neurontin) 1,200 mg PO HS [facility] PRN Reason: Protocol Last Admin: 09/03/17 22:05 Dose: 1,200 mg Insulin Human Regular (Humulin R Med) 0 units SC ACHS [facility] PRN Reason: Protocol Last Admin: 09/03/17 22:02 Dose: Not Given Nicotine (Nicoderm Cq) 1 patch TD DAILY [facility] Last Admin: 09/03/17 09:05 Dose: 1 patch Spironolactone (Aldactone) 25 mg PO BID [facility] Last Admin: 09/03/17 17:35 Dose: 25 mg Warfarin Sodium (Coumadin) 5 mg PO 1800 [facility] PRN Reason: Protocol Last Admin: 09/03/17 17:36 Dose: 5 mg - Labs Labs: 09/03/17 06:30 09/03/17 06:30 PT 14.7 SECONDS (9.4-12.5) H 09/03/17 06:30 INR 1.27 (0.93-1.08) H 09/03/17 06:30 - Constitutional Appears: Chronically Ill - Head Exam Head Exam: NORMAL INSPECTION - Respiratory Exam Respiratory Exam: Decreased Breath Sounds - Cardiovascular Exam Cardiovascular Exam: +S1, +S2 - GI/Abdominal Exam GI & Abdominal Exam: Soft. absent: Tenderness Assessment and Plan - Assessment and Plan (Free Text) Plan: Assessment Inflammatory arthritis of the right knee due to gout, clinically improving acute renal failure history of right sided HCAP HTN DM CAD S/P CABG peptic ulcer disease atrial fibrillation Plan uric acid crystals were seen in the synovial fluid and cultures are negative - we will continue to monitor off antibiotics since he is at risk for infections continue gout medications
[2017-09-04] MEDS: Digoxin 125 mcg (0.125 mg) Tab PO SCH (14:50)
--- NOTE | 2017-09-04 21:16 | PN ---
DATE: 09/04/2017 SUBJECTIVE: Patient was seen and examined, complained of right knee pain, but better than before since he had fluid drained. Otherwise, he has no complaints. No nausea or vomiting. No diarrhea. No fever. No chills. Eating and tolerating. PHYSICAL EXAMINATION: VITAL SIGNS: He is afebrile. Pulse 76, respirations 22, blood pressure 130/68. LUNGS: Bilateral fair airflow. No rhonchi or crackle. HEART: S1 and S2 audible. ABDOMEN: Soft, nontender. No rebound. No guarding. NEUROLOGIC: Patient is awake, alert, oriented, communicative. Moves all the extremities. LABORATORY DATA: His blood sugar is 244. His blood cultures and urine cultures are negative. He has right knee tap done and no growth. ASSESSMENT: 1. Right knee gouty arthritis. 2. Hypertension. 3. Insulin-dependent diabetes. 4. Chronic atrial fibrillation. 5. Hyperlipidemia. 6. History of chronic atrial fibrillation. 7. Systolic congestive heart failure with ejection fraction of 35 %. PLAN: Currently, the patient is on spironolactone. He is getting diltiazem, colchicine, carvedilol, Coumadin 5 mg daily. He is on digoxin. Blood sugar is being monitored. He is on Tylenol. Complains of having some pain, I will give him Ultracet. Follow up his PT/INR in a.m. Diane Kirkland MD
[2017-09-04] MEDS: TraMADol/Apap 37.5/325 mg Tab PO PRN (21:27)
[2017-09-05] MEDS: Insulin Reg-MEDIUM-Coverage SC SCH ×4 (06:47→21:32)
[2017-09-05] MEDS: diltiaZEM 180 mg/24 Hours CD Cap PO SCH (10:33)
[2017-09-05] MEDS: Digoxin 125 mcg (0.125 mg) Tab PO SCH (13:33)
--- NOTE | 2017-09-05 14:52 | CP.PCM.PN ---
Subjective - Date & Time of Evaluation Date of Evaluation: 09/05/17 Time of Evaluation: 10:30 - Subjective Subjective: Doing his physical therapy well, no fevers, much improved pain in the left knee. Objective - Vital Signs/Intake and Output Vital Signs (last 24 hours): Temp Pulse Resp BP Pulse Ox 97.3 F L 52 L 20 134/75 97 09/04/17 10:00 09/04/17 17:28 09/04/17 10:00 09/04/17 17:28 09/04/17 10:00 - Medications Medications: Current Medications Acetaminophen (Tylenol 325mg Tab) 650 mg PO Q6H PRN PRN Reason: Pain, moderate (4-7) Last Admin: 09/04/17 10:34 Dose: 650 mg Carvedilol (Coreg) 25 mg PO BID [facility] Last Admin: 09/04/17 17:28 Dose: 25 mg Colchicine (Colocrys) 0.6 mg PO DAILY [facility] Last Admin: 09/04/17 10:22 Dose: 0.6 mg Digoxin (Digoxin) 0.125 mg PO 1400 [facility] Last Admin: 09/04/17 14:50 Dose: Not Given Diltiazem HCl (Cardizem Cd) 180 mg PO DAILY [facility] Last Admin: 09/04/17 10:22 Dose: 180 mg Famotidine (Pepcid) 20 mg PO BID [facility] Last Admin: 09/04/17 17:27 Dose: 20 mg Furosemide (Lasix) 40 mg PO BID [facility] Last Admin: 09/04/17 17:25 Dose: 40 mg Gabapentin (Neurontin) 600 mg PO BID [facility] PRN Reason: Protocol Last Admin: 09/04/17 17:27 Dose: 600 mg Gabapentin (Neurontin) 1,200 mg PO HS [facility] PRN Reason: Protocol Last Admin: 09/04/17 21:24 Dose: 1,200 mg Insulin Human Regular (Humulin R Med) 0 units SC ACHS [facility] PRN Reason: Protocol Last Admin: 09/04/17 22:07 Dose: Not Given Nicotine (Nicoderm Cq) 1 patch TD DAILY [facility] Last Admin: 09/04/17 10:21 Dose: 1 patch Spironolactone (Aldactone) 25 mg PO BID [facility] Last Admin: 09/04/17 17:27 Dose: 25 mg Tramadol/Acetaminophen (Ultracet 37.5/325 Mg) 1 tab PO Q6H PRN PRN Reason: Pain, moderate (4-7) Last Admin: 09/04/17 21:27 Dose: 1 tab Warfarin Sodium (Coumadin) 5 mg PO 1800 [facility] PRN Reason: Protocol Last Admin: 09/04/17 17:28 Dose: 5 mg - Labs Labs: 09/03/17 06:30 09/03/17 06:30 PT 14.7 SECONDS (9.4-12.5) H 09/03/17 06:30 INR 1.27 (0.93-1.08) H 09/03/17 06:30 - Constitutional Appears: Non-toxic, Chronically Ill - Head Exam Head Exam: NORMAL INSPECTION - Neck Exam Neck Exam: absent: Meningismus - Respiratory Exam Respiratory Exam: Decreased Breath Sounds - Cardiovascular Exam Cardiovascular Exam: +S1, +S2 - GI/Abdominal Exam GI & Abdominal Exam: Soft. absent: Tenderness Assessment and Plan - Assessment and Plan (Free Text) Plan: Assessment Inflammatory arthritis of the right knee due to gout, clinically improved acute renal failure history of right sided HCAP HTN DM CAD S/P CABG peptic ulcer disease atrial fibrillation Plan uric acid crystals were seen in the synovial fluid and cultures are negative - we will continue to monitor off antibiotics since he is at risk for infections continue gout medications
[2017-09-05] MEDS: TraMADol/Apap 37.5/325 mg Tab PO PRN (21:21)
--- NOTE | 2017-09-06 00:17 | PN ---
DATE: 09/05/2017 SUBJECTIVE: He is comfortable in bed, in no acute distress. Denies any joint pain. Appetite is good. Participating in physical therapy. No events overnight. No fever, no cough, no chills, no rigors. REVIEW OF SYSTEMS: As per HPI. Rest of 12-point review of systems reviewed negative. PHYSICAL EXAMINATION: GENERAL: Comfortable in bed, in no acute distress. VITAL SIGNS: Temperature 98.5, heart rate is 70 per minute, respiratory rate 20 per minute, blood pressure 130/60. HEENT: Pallor positive. NECK: No lymphadenopathy. CHEST: Air entry present and equal bilaterally. No added sounds. CARDIOVASCULAR: S1 and S2 normal. No murmur. No gallop. ABDOMEN: Soft, nontender. No hepatosplenomegaly. EXTREMITIES: No edema. NEUROLOGICAL: Awake, alert, oriented. No sensory or motor deficit. LABORATORY DATA: Urine culture negative. Blood culture negative. Hemoglobin 10.9. ASSESSMENT: 1. Right knee gouty arthritis. 2. Chronic atrial fibrillation. 3. Congestive cardiac failure. 4. Hypertension. 6. Diabetes mellitus type 2. PLAN: He is currently on current medication, spironolactone, diltiazem, colchicine; currently on Coumadin and digoxin. Blood sugar fairly controlled on current medications. We will follow up on coags. INR is 1.2, currently on 5 mg Coumadin. We will order PT/INR for the morning. Janey Moya MD
[2017-09-06] MEDS: Insulin Reg-MEDIUM-Coverage SC SCH ×4 (06:55→23:27)
[2017-09-06 07:18] LABS: BASO # 0.12 K/mm3 (0.0-2.0); BASO % 1.6 % (0.0-3.0); EOS # 0.3 (0.0-0.7); EOS % 3.5 % (1.5-5.0); GRAN # 4.43 (1.4-6.5); GRAN % 57.5 % (50.0-68.0); HEMOGLOBIN 12.9 g/dL (14.0-18.0); LYMPH # 2.4 (1.2-3.4); LYMPH % 30.6 % (22.0-35.0); MEAN CELL VOLUME 77.7 fl (80.0-105.0); MEAN CORPUSCULAR HEMOGLOBIN 26.4 pg (25.0-35.0); MEAN CORPUSCULAR HGB CONC 33.9 g/dl (31.0-37.0); MEAN PLATELET VOLUME 9.8 fl (7.0-11.0); MONO # 0.5 (0.1-0.6); MONO % 6.8 % (1.0-6.0); RBC 4.89 10^6/uL (3.5-6.1); RED CELL DISTRIBUTION WIDTH 20.3 % (11.5-14.5); WHITE BLOOD COUNT 7.7 10^3/ul (4.5-11.0)
[2017-09-06 07:31] LABS: ALB/GLOB RATIO 1.2 (1.1-1.8); ALBUMIN 4.3 g/dL (3.0-4.8); ALT/SGPT 35 U/L (7-56); AST/SGOT 34 U/L (17-59); BLOOD UREA NITROGEN 70 mg/dL (7-21); CALCIUM 9.4 mg/dL (8.4-10.5); GFR AFRICAN-AMERICAN > 60; GFR NON-AFRICAN AMERICAN 55; INR 1.69 (0.93-1.08); PROTHROMBIN TIME 19.7 SECONDS (9.4-12.5)
[2017-09-06] MEDS: diltiaZEM 180 mg/24 Hours CD Cap PO SCH (10:21)
--- NOTE | 2017-09-06 10:42 | CP.PCM.PN ---
<Paramjit Caldwell - Last Filed: 09/06/17 10:39> Subjective - Date & Time of Evaluation Date of Evaluation: 09/06/17 Time of Evaluation: 10:39 - Subjective Subjective: Medicine progress note for Dr. Holt's service - Shakira Caldwell PGY3 Patient seen and examined at bedside this morning. No acute overnight events or new complaints reported. Working well with physical therapy. Reports improvement of his knee pain. Eating well. Objective - Vital Signs/Intake and Output Vital Signs (last 24 hours): Temp Pulse Resp BP Pulse Ox 97.5 F L 61 20 118/68 97 09/05/17 16:02 09/06/17 10:24 09/05/17 16:02 09/06/17 10:24 09/05/17 10:00 - Medications Medications: Current Medications Acetaminophen (Tylenol 325mg Tab) 650 mg PO Q6H PRN PRN Reason: Pain, moderate (4-7) Last Admin: 09/06/17 08:06 Dose: 650 mg Carvedilol (Coreg) 25 mg PO BID [facility] Last Admin: 09/06/17 10:24 Dose: 25 mg Colchicine (Colocrys) 0.6 mg PO DAILY [facility] Last Admin: 09/06/17 10:24 Dose: 0.6 mg Digoxin (Digoxin) 0.125 mg PO 1400 [facility] Last Admin: 09/05/17 13:33 Dose: Not Given Diltiazem HCl (Cardizem Cd) 180 mg PO DAILY [facility] Last Admin: 09/06/17 10:21 Dose: 180 mg Famotidine (Pepcid) 20 mg PO BID [facility] Last Admin: 09/06/17 10:25 Dose: 20 mg Furosemide (Lasix) 40 mg PO BID [facility] Last Admin: 09/06/17 10:24 Dose: 40 mg Gabapentin (Neurontin) 600 mg PO BID [facility] PRN Reason: Protocol Last Admin: 09/06/17 10:25 Dose: 600 mg Gabapentin (Neurontin) 1,200 mg PO HS [facility] PRN Reason: Protocol Last Admin: 09/05/17 21:21 Dose: 1,200 mg Insulin Human Regular (Humulin R Med) 0 units SC ACHS [facility] PRN Reason: Protocol Last Admin: 09/06/17 06:55 Dose: 1 unit Nicotine (Nicoderm Cq) 1 patch TD DAILY [facility] Last Admin: 09/06/17 10:25 Dose: 1 patch Spironolactone (Aldactone) 25 mg PO BID [facility] Last Admin: 09/06/17 10:21 Dose: 25 mg Tramadol/Acetaminophen (Ultracet 37.5/325 Mg) 1 tab PO Q6H PRN PRN Reason: Pain, moderate (4-7) Last Admin: 09/05/17 21:21 Dose: 1 tab Warfarin Sodium (Coumadin) 6 mg PO 1800 [facility] PRN Reason: Protocol - Labs Labs: 09/06/17 06:30 09/06/17 06:30 PT 19.7 SECONDS (9.4-12.5) H 09/06/17 06:30 INR 1.69 (0.93-1.08) H 09/06/17 06:30 - Constitutional Appears: No Acute Distress - Head Exam Head Exam: ATRAUMATIC, NORMAL INSPECTION, NORMOCEPHALIC - Eye Exam Eye Exam: EOMI Pupil Exam: PERRL - ENT Exam ENT Exam: Mucous Membranes Moist - Neck Exam Neck Exam: Normal Inspection - Respiratory Exam Respiratory Exam: Clear to Ausculation Bilateral. absent: Rales, Rhonchi, Wheezes - Cardiovascular Exam Cardiovascular Exam: Irregular Rhythm, +S1, +S2. absent: Gallop, Rubs - GI/Abdominal Exam GI & Abdominal Exam: Soft. absent: Distended, Firm, Guarding, Rigid, Tenderness , Rebound - Neurological Exam Neurological Exam: Alert, Awake, Oriented x3 - Psychiatric Exam Psychiatric exam: Normal Affect, Normal Mood - Skin Skin Exam: Dry, Intact, Normal Color, Warm Assessment and Plan - Assessment and Plan (Free Text) Plan: 71yo male with history of hypertension, hyperlipidemia, DM type 2, gout, afib on coumadin presents with c/o right-sided knee pain for past 2 days associated with difficulty ambulation secondary to acute gout flare 1. Deconditioning 2. Acute gout flare 3. Hx of hypertension 4. Hx of hyperlipidemia 5. DM type 2 6. Hx of afib on coumadin 7. Hx of systolic CHF (EF 35%), compensated -Encouraged to continue with physical therapy for strengthening -His coumadin was increased to 6mg due to subtheurapetic INR, will trend INR daily -The patient is currently on colchicine for gout flare -Synovial fluid revealed gout crystals; Culture negative, Uric acid elevated -Cefepime was discontinued -He is on digoxin, cardizem and warfarin for his history of atrial fibrillation as well as coreg, aldactone and lasix for his CHF -He is on pepcid for GI prophylaxis/GERD -Consistent carb diet, fingersticks ACHS with insulin sliding scale coverage Patient seen and case discussed/reviewed with attending, Dr. Holt <Kike Holt - Last Filed: 09/06/17 19:28> Objective - Vital Signs/Intake and Output Vital Signs (last 24 hours): Temp Pulse Resp BP Pulse Ox 97.8 F 51 L 20 98/64 L 97 09/06/17 10:00 09/06/17 17:51 09/06/17 10:00 09/06/17 17:52 09/06/17 10:00 - Medications Medications: Current Medications Acetaminophen (Tylenol 325mg Tab) 650 mg PO Q6H PRN PRN Reason: Pain, moderate (4-7) Last Admin: 09/06/17 13:51 Dose: 650 mg Carvedilol (Coreg) 25 mg PO BID [facility] Last Admin: 09/06/17 17:51 Dose: Not Given Colchicine (Colocrys) 0.6 mg PO DAILY [facility] Last Admin: 09/06/17 10:24 Dose: 0.6 mg Digoxin (Digoxin) 0.125 mg PO 1400 [facility] Last Admin: 09/06/17 14:40 Dose: 0.125 mg Diltiazem HCl (Cardizem Cd) 180 mg PO DAILY [facility] Last Admin: 09/06/17 10:21 Dose: 180 mg Famotidine (Pepcid) 20 mg PO BID [facility] Last Admin: 09/06/17 17:53 Dose: 20 mg Furosemide (Lasix) 40 mg PO BID [facility] Last Admin: 09/06/17 17:52 Dose: 40 mg Gabapentin (Neurontin) 600 mg PO BID [facility] PRN Reason: Protocol Last Admin: 09/06/17 17:52 Dose: 600 mg Gabapentin (Neurontin) 1,200 mg PO HS [facility] PRN Reason: Protocol Last Admin: 09/05/17 21:21 Dose: 1,200 mg Insulin Human Regular (Humulin R Med) 0 units SC ACHS [facility] PRN Reason: Protocol Last Admin: 09/06/17 17:50 Dose: Not Given Nicotine (Nicoderm Cq) 1 patch TD DAILY [facility] Last Admin: 09/06/17 10:25 Dose: 1 patch Spironolactone (Aldactone) 25 mg PO BID [facility] Last Admin: 09/06/17 17:51 Dose: 25 mg Tramadol/Acetaminophen (Ultracet 37.5/325 Mg) 1 tab PO Q6H PRN PRN Reason: Pain, moderate (4-7) Last Admin: 09/05/17 21:21 Dose: 1 tab Warfarin Sodium (Coumadin) 6 mg PO 1800 [facility] PRN Reason: Protocol Last Admin: 09/06/17 17:52 Dose: 6 mg - Labs Labs: 09/06/17 06:30 09/06/17 06:30 PT 19.7 SECONDS (9.4-12.5) H 09/06/17 06:30 INR 1.69 (0.93-1.08) H 09/06/17 06:30 Assessment and Plan - Assessment and Plan (Free Text) Plan: Pt seen and examined. I have reviewed the note of the medical records tech and agree with it. I have discussed the assessment and plan with the resident. I have reviewed the patient's labs and medications. Pt is going well and able to ambulate. Pain is controlled.
[2017-09-06] MEDS: Digoxin 125 mcg (0.125 mg) Tab PO SCH (14:40)
--- NOTE | 2017-09-06 15:44 | CP.PCM.PN ---
Subjective - Date & Time of Evaluation Date of Evaluation: 09/06/17 Time of Evaluation: 12:20 - Subjective Subjective: Comfortable in bed, afebrile. Objective - Vital Signs/Intake and Output Vital Signs (last 24 hours): Temp Pulse Resp BP Pulse Ox 97.5 F L 61 20 118/68 97 09/05/17 16:02 09/06/17 10:24 09/05/17 16:02 09/06/17 10:24 09/05/17 10:00 - Medications Medications: Current Medications Acetaminophen (Tylenol 325mg Tab) 650 mg PO Q6H PRN PRN Reason: Pain, moderate (4-7) Last Admin: 09/06/17 13:51 Dose: 650 mg Carvedilol (Coreg) 25 mg PO BID [facility] Last Admin: 09/06/17 10:24 Dose: 25 mg Colchicine (Colocrys) 0.6 mg PO DAILY [facility] Last Admin: 09/06/17 10:24 Dose: 0.6 mg Digoxin (Digoxin) 0.125 mg PO 1400 [facility] Last Admin: 09/06/17 14:40 Dose: 0.125 mg Diltiazem HCl (Cardizem Cd) 180 mg PO DAILY [facility] Last Admin: 09/06/17 10:21 Dose: 180 mg Famotidine (Pepcid) 20 mg PO BID [facility] Last Admin: 09/06/17 10:25 Dose: 20 mg Furosemide (Lasix) 40 mg PO BID [facility] Last Admin: 09/06/17 10:24 Dose: 40 mg Gabapentin (Neurontin) 600 mg PO BID [facility] PRN Reason: Protocol Last Admin: 09/06/17 10:25 Dose: 600 mg Gabapentin (Neurontin) 1,200 mg PO HS [facility] PRN Reason: Protocol Last Admin: 09/05/17 21:21 Dose: 1,200 mg Insulin Human Regular (Humulin R Med) 0 units SC ACHS [facility] PRN Reason: Protocol Last Admin: 09/06/17 12:28 Dose: 3 unit Nicotine (Nicoderm Cq) 1 patch TD DAILY [facility] Last Admin: 09/06/17 10:25 Dose: 1 patch Spironolactone (Aldactone) 25 mg PO BID [facility] Last Admin: 09/06/17 10:21 Dose: 25 mg Tramadol/Acetaminophen (Ultracet 37.5/325 Mg) 1 tab PO Q6H PRN PRN Reason: Pain, moderate (4-7) Last Admin: 09/05/17 21:21 Dose: 1 tab Warfarin Sodium (Coumadin) 6 mg PO 1800 [facility] PRN Reason: Protocol - Labs Labs: 09/06/17 06:30 09/06/17 06:30 PT 19.7 SECONDS (9.4-12.5) H 09/06/17 06:30 INR 1.69 (0.93-1.08) H 09/06/17 06:30 - Constitutional Appears: Non-toxic, Chronically Ill - Head Exam Head Exam: NORMAL INSPECTION - ENT Exam ENT Exam: Mucous Membranes Moist - Neck Exam Neck Exam: absent: Meningismus - Respiratory Exam Respiratory Exam: Decreased Breath Sounds - Cardiovascular Exam Cardiovascular Exam: +S1, +S2 - GI/Abdominal Exam GI & Abdominal Exam: Soft. absent: Tenderness Assessment and Plan - Assessment and Plan (Free Text) Plan: Assessment Inflammatory arthritis of the right knee due to gout, clinically improved acute renal failure history of right sided HCAP HTN DM CAD S/P CABG peptic ulcer disease atrial fibrillation Plan uric acid crystals were seen in the synovial fluid and cultures are negative - we will continue to monitor off antibiotics since he is at risk for infections continue gout medications
[2017-09-06] MEDS: TraMADol/Apap 37.5/325 mg Tab PO PRN (21:38)
[2017-09-07] MEDS: Insulin Reg-MEDIUM-Coverage SC SCH ×4 (06:31→21:45)
[2017-09-07 07:18] LABS: INR 1.97 (0.93-1.08)
[2017-09-07] MEDS: diltiaZEM 180 mg/24 Hours CD Cap PO SCH (10:54)
[2017-09-07] MEDS: Digoxin 125 mcg (0.125 mg) Tab PO SCH (14:56)
[2017-09-07] MEDS: TraMADol/Apap 37.5/325 mg Tab PO PRN ×2 (15:00→21:46)
[2017-09-07 16:53] VITALS: RESP 18
[2017-09-08] MEDS: Insulin Reg-MEDIUM-Coverage SC SCH ×4 (06:39→22:16)
[2017-09-08 08:03] LABS: INR 2.73 (0.93-1.08); PROTHROMBIN TIME 32.1 SECONDS (9.4-12.5)
--- NOTE | 2017-09-08 08:43 | CP.PCM.PN ---
<Paramjit Caldwell - Last Filed: 09/08/17 08:41> Subjective - Date & Time of Evaluation Date of Evaluation: 09/08/17 Time of Evaluation: 08:41 - Subjective Subjective: Medicine progress note - Shakira Javi PGY3 Patient seen and examined at bedside. No acute overnight events or new complaints. Working with PT. Discharge planned for tomorrow. Denies cp, palpitations, SOB. Objective - Vital Signs/Intake and Output Vital Signs (last 24 hours): Temp Pulse Resp BP Pulse Ox 97.5 F L 51 L 18 125/76 96 09/07/17 16:00 09/07/17 16:00 09/07/17 16:00 09/07/17 17:32 09/07/17 16:00 - Medications Medications: Current Medications Acetaminophen (Tylenol 325mg Tab) 650 mg PO Q6H PRN PRN Reason: Pain, moderate (4-7) Last Admin: 09/07/17 10:50 Dose: 650 mg Carvedilol (Coreg) 25 mg PO BID [facility] Last Admin: 09/07/17 17:31 Dose: 25 mg Colchicine (Colocrys) 0.6 mg PO DAILY [facility] Last Admin: 09/07/17 10:22 Dose: 0.6 mg Digoxin (Digoxin) 0.125 mg PO 1400 [facility] Last Admin: 09/07/17 14:56 Dose: 0.125 mg Diltiazem HCl (Cardizem Cd) 180 mg PO DAILY [facility] Last Admin: 09/07/17 10:54 Dose: 180 mg Famotidine (Pepcid) 20 mg PO BID [facility] Last Admin: 09/07/17 17:32 Dose: 20 mg Furosemide (Lasix) 40 mg PO BID [facility] Last Admin: 09/07/17 17:32 Dose: 40 mg Gabapentin (Neurontin) 600 mg PO BID [facility] PRN Reason: Protocol Last Admin: 09/07/17 17:32 Dose: 600 mg Gabapentin (Neurontin) 1,200 mg PO HS [facility] PRN Reason: Protocol Last Admin: 09/07/17 21:45 Dose: 1,200 mg Insulin Human Regular (Humulin R Med) 0 units SC ACHS [facility] PRN Reason: Protocol Last Admin: 09/08/17 06:39 Dose: 3 unit Nicotine (Nicoderm Cq) 1 patch TD DAILY [facility] Last Admin: 09/07/17 10:22 Dose: 1 patch Spironolactone (Aldactone) 25 mg PO BID [facility] Last Admin: 09/07/17 17:32 Dose: 25 mg Tramadol/Acetaminophen (Ultracet 37.5/325 Mg) 1 tab PO Q6H PRN PRN Reason: Pain, moderate (4-7) Last Admin: 09/07/17 21:46 Dose: 1 tab Warfarin Sodium (Coumadin) 3 mg PO 1800 [facility] PRN Reason: Protocol - Labs Labs: 09/06/17 06:30 09/06/17 06:30 PT 32.1 SECONDS (9.4-12.5) H 09/08/17 07:30 INR 2.73 (0.93-1.08) H 09/08/17 07:30 - Constitutional Appears: No Acute Distress - Head Exam Head Exam: ATRAUMATIC, NORMAL INSPECTION, NORMOCEPHALIC - Eye Exam Eye Exam: EOMI Pupil Exam: PERRL - ENT Exam ENT Exam: Mucous Membranes Moist - Neck Exam Neck Exam: Normal Inspection - Respiratory Exam Respiratory Exam: absent: Rales, Rhonchi, Wheezes - Cardiovascular Exam Cardiovascular Exam: Irregular Rhythm, +S1, +S2. absent: Gallop, Rubs - GI/Abdominal Exam GI & Abdominal Exam: Soft, Normal Bowel Sounds. absent: Distended, Firm, Guarding, Rigid, Tenderness, Rebound - Extremities Exam Extremities Exam: Normal Inspection - Neurological Exam Neurological Exam: Alert, Awake, CN II-XII Intact, Oriented x3 - Psychiatric Exam Psychiatric exam: Normal Affect, Normal Mood - Skin Skin Exam: Dry, Intact, Normal Color, Warm Assessment and Plan - Assessment and Plan (Free Text) Plan: 71yo male with history of hypertension, hyperlipidemia, DM type 2, gout, afib on coumadin presents with c/o right-sided knee pain for past 2 days associated with difficulty ambulation secondary to acute gout flare 1. Deconditioning 2. Acute gout flare 3. Hx of hypertension 4. Hx of hyperlipidemia 5. DM type 2 6. Hx of afib on coumadin 7. Hx of systolic CHF (EF 35%), compensated -Working with physical therapy for strengthening -INR reviewed; coumadin adjusted -The patient is currently on colchicine for gout flare -Synovial fluid revealed gout crystals; Culture negative, Uric acid elevated -He is on digoxin, cardizem and warfarin for his history of atrial fibrillation as well as coreg, aldactone and lasix for his CHF -He is on pepcid for GI prophylaxis/GERD -Consistent carb diet, fingersticks ACHS with insulin sliding scale coverage Patient seen and case discussed/reviewed with attending, Dr. Holt <Kike Holt - Last Filed: 09/08/17 21:02> Objective - Vital Signs/Intake and Output Vital Signs (last 24 hours): Temp Pulse Resp BP Pulse Ox 98.5 F 45 L 18 128/71 97 09/08/17 10:00 09/08/17 17:36 09/08/17 10:00 09/08/17 17:36 09/08/17 10:00 - Medications Medications: Current Medications Acetaminophen (Tylenol 325mg Tab) 650 mg PO Q6H PRN PRN Reason: Pain, moderate (4-7) Last Admin: 09/08/17 09:49 Dose: 650 mg Carvedilol (Coreg) 25 mg PO BID [facility] Last Admin: 09/08/17 17:36 Dose: 25 mg Colchicine (Colocrys) 0.6 mg PO DAILY [facility] Last Admin: 09/08/17 09:42 Dose: 0.6 mg Digoxin (Digoxin) 0.125 mg PO 1400 [facility] Last Admin: 09/08/17 14:35 Dose: 0.125 mg Diltiazem HCl (Cardizem Cd) 180 mg PO DAILY [facility] Last Admin: 09/08/17 09:42 Dose: 180 mg Famotidine (Pepcid) 20 mg PO BID [facility] Last Admin: 09/08/17 17:38 Dose: 20 mg Gabapentin (Neurontin) 600 mg PO BID [facility] PRN Reason: Protocol Last Admin: 09/08/17 17:38 Dose: 600 mg Gabapentin (Neurontin) 1,200 mg PO HS [facility] PRN Reason: Protocol Last Admin: 09/07/17 21:45 Dose: 1,200 mg Insulin Human Regular (Humulin R Med) 0 units SC [facility] PRN Reason: Protocol Last Admin: 09/08/17 17:35 Dose: 1 unit Nicotine (Nicoderm Cq) 1 patch TD DAILY [facility] Last Admin: 09/08/17 09:42 Dose: 1 patch Spironolactone (Aldactone) 25 mg PO BID [facility] Last Admin: 09/08/17 17:36 Dose: 25 mg Tramadol/Acetaminophen (Ultracet 37.5/325 Mg) 1 tab PO Q6H PRN PRN Reason: Pain, moderate (4-7) Last Admin: 09/08/17 14:37 Dose: 1 tab Warfarin Sodium (Coumadin) 3 mg PO 1800 [facility] PRN Reason: Protocol Last Admin: 09/08/17 17:37 Dose: 3 mg - Labs Labs: 09/06/17 06:30 09/06/17 06:30 PT 32.1 SECONDS (9.4-12.5) H 09/08/17 07:30 INR 2.73 (0.93-1.08) H 09/08/17 07:30 Assessment and Plan - Assessment and Plan (Free Text) Plan: Pt seen and examined. I have reviewed the note of the medical records custodian and agree with it. I have discussed the assessment and plan with the resident. I have reviewed the patient's labs and medications.Pt improving with his walking. He is on Coumadin. A fib is under control. He is going to be discharged home in the AM.
[2017-09-08] MEDS: diltiaZEM 180 mg/24 Hours CD Cap PO SCH (09:42)
--- NOTE | 2017-09-08 14:04 | CP.PCM.PN ---
Subjective - Date & Time of Evaluation Date of Evaluation: 09/08/17 Time of Evaluation: 10:10 - Subjective Subjective: Afebrile, not in distress. Objective - Vital Signs/Intake and Output Vital Signs (last 24 hours): Temp Pulse Resp BP Pulse Ox 97.5 F L 61 18 128/87 96 09/07/17 16:00 09/08/17 09:42 09/07/17 16:00 09/08/17 09:42 09/07/17 16:00 - Medications Medications: Current Medications Acetaminophen (Tylenol 325mg Tab) 650 mg PO Q6H PRN PRN Reason: Pain, moderate (4-7) Last Admin: 09/07/17 10:50 Dose: 650 mg Carvedilol (Coreg) 25 mg PO BID [facility] Last Admin: 09/08/17 09:40 Dose: 25 mg Colchicine (Colocrys) 0.6 mg PO DAILY [facility] Last Admin: 09/08/17 09:42 Dose: 0.6 mg Digoxin (Digoxin) 0.125 mg PO 1400 [facility] Last Admin: 09/07/17 14:56 Dose: 0.125 mg Diltiazem HCl (Cardizem Cd) 180 mg PO DAILY [facility] Last Admin: 09/08/17 09:42 Dose: 180 mg Famotidine (Pepcid) 20 mg PO BID [facility] Last Admin: 09/08/17 09:42 Dose: 20 mg Furosemide (Lasix) 40 mg PO BID [facility] Last Admin: 09/08/17 09:41 Dose: 40 mg Gabapentin (Neurontin) 600 mg PO BID [facility] PRN Reason: Protocol Last Admin: 09/08/17 09:42 Dose: 600 mg Gabapentin (Neurontin) 1,200 mg PO HS [facility] PRN Reason: Protocol Last Admin: 09/07/17 21:45 Dose: 1,200 mg Insulin Human Regular (Humulin R Med) 0 units SC ACHS [facility] PRN Reason: Protocol Last Admin: 09/08/17 06:39 Dose: 3 unit Nicotine (Nicoderm Cq) 1 patch TD DAILY [facility] Last Admin: 09/08/17 09:42 Dose: 1 patch Spironolactone (Aldactone) 25 mg PO BID [facility] Last Admin: 09/08/17 09:40 Dose: 25 mg Tramadol/Acetaminophen (Ultracet 37.5/325 Mg) 1 tab PO Q6H PRN PRN Reason: Pain, moderate (4-7) Last Admin: 09/07/17 21:46 Dose: 1 tab Warfarin Sodium (Coumadin) 3 mg PO 1800 [facility] PRN Reason: Protocol - Labs Labs: 09/06/17 06:30 09/06/17 06:30 PT 32.1 SECONDS (9.4-12.5) H 09/08/17 07:30 INR 2.73 (0.93-1.08) H 09/08/17 07:30 - Constitutional Appears: Non-toxic, Chronically Ill - Head Exam Head Exam: NORMAL INSPECTION - Respiratory Exam Respiratory Exam: Decreased Breath Sounds - Cardiovascular Exam Cardiovascular Exam: +S1, +S2 - GI/Abdominal Exam GI & Abdominal Exam: Soft. absent: Tenderness Assessment and Plan - Assessment and Plan (Free Text) Plan: Assessment Inflammatory arthritis of the right knee due to gout, clinically improved acute renal failure history of right sided HCAP HTN DM CAD S/P CABG peptic ulcer disease atrial fibrillation Plan uric acid crystals were seen in the synovial fluid and cultures are negative - we will continue to monitor off antibiotics since he is at risk for nosocomial infections continue gout medications
[2017-09-08] MEDS: Digoxin 125 mcg (0.125 mg) Tab PO SCH (14:35)
[2017-09-08 14:36] VITALS: PULSE 65
[2017-09-08] MEDS: TraMADol/Apap 37.5/325 mg Tab PO PRN (14:37)
[2017-09-08 17:14] VITALS: O2SAT 97
[2017-09-09] MEDS: Insulin Reg-MEDIUM-Coverage SC SCH ×2 (06:37→12:19)
--- NOTE | 2017-09-09 06:47 | CP.PCM.DIS ---
<Paramjit Caldwell - Last Filed: 09/09/17 07:52> Provider - Provider Date of Admission: 09/02/17 14:22 Attending physician: Kike Holt MD Primary care physician: Palmer Whalen MD Consults: LISA - Dr. Toan Kapoor - Dr. Solitario Time Spent in preparation of Discharge (in minutes): 25 Hospital Course - Lab Results Lab Results: Most Recent Lab Values WBC 7.7 10^3/ul (4.5-11.0) 09/06/17 06:30 RBC 4.89 10^6/uL (3.5-6.1) 09/06/17 06:30 Hgb 12.9 g/dL (14.0-18.0) L 09/06/17 06:30 Hct 38.0 % (42.0-52.0) L 09/06/17 06:30 MCV 77.7 fl (80.0-105.0) L 09/06/17 06:30 MCH 26.4 pg (25.0-35.0) 09/06/17 06:30 MCHC 33.9 g/dl (31.0-37.0) 09/06/17 06:30 RDW 20.3 % (11.5-14.5) H 09/06/17 06:30 Plt Count 190 10^3/uL (120.0-450.0) 09/06/17 06:30 MPV 9.8 fl (7.0-11.0) 09/06/17 06:30 Gran % 57.5 % (50.0-68.0) 09/06/17 06:30 Lymph % (Auto) 30.6 % (22.0-35.0) 09/06/17 06:30 [place] % (Auto) 6.8 % (1.0-6.0) H 09/06/17 06:30 Eos % (Auto) 3.5 % (1.5-5.0) 09/06/17 06:30 Baso % (Auto) 1.6 % (0.0-3.0) 09/06/17 06:30 Gran # 4.43 (1.4-6.5) 09/06/17 06:30 Lymph # (Auto) 2.4 (1.2-3.4) 09/06/17 06:30 [place] # (Auto) 0.5 (0.1-0.6) 09/06/17 06:30 Eos # (Auto) 0.3 (0.0-0.7) 09/06/17 06:30 Baso # (Auto) 0.12 K/mm3 (0.0-2.0) 09/06/17 06:30 PT 32.1 SECONDS (9.4-12.5) H 09/08/17 07:30 INR 2.73 (0.93-1.08) H 09/08/17 07:30 Sodium 136 mmol/L (132-148) 09/06/17 06:30 Potassium 4.8 mmol/L (3.6-5.0) 09/06/17 06:30 Chloride 96 mmol/L (98-107) L 09/06/17 06:30 Carbon Dioxide 29 mmol/L (21-33) 09/06/17 06:30 Anion Gap 16 (10-20) 09/06/17 06:30 BUN 70 mg/dL (7-21) H 09/06/17 06:30 Creatinine 1.3 mg/dl (0.8-1.5) 09/06/17 06:30 Est GFR ( Amer) > 60 09/06/17 06:30 Est GFR (Non-Af Amer) 55 09/06/17 06:30 POC Glucose (mg/dL) 156 mg/dL (65-110) H 09/07/17 17:06 Random Glucose 175 mg/dL (70-110) H 09/06/17 06:30 Calcium 9.4 mg/dL (8.4-10.5) 09/06/17 06:30 Ferritin 109.0 ng/mL 09/03/17 06:30 Total Bilirubin 0.8 mg/dL (0.2-1.3) 09/06/17 06:30 AST 34 U/L (17-59) 09/06/17 06:30 ALT 35 U/L (7-56) 09/06/17 06:30 Alkaline Phosphatase 53 U/L (38-126) 09/06/17 06:30 Total Protein 7.9 g/dL (5.8-8.3) 09/06/17 06:30 Albumin 4.3 g/dL (3.0-4.8) 09/06/17 06:30 Globulin 3.6 gm/dL 09/06/17 06:30 Albumin/Globulin Ratio 1.2 (1.1-1.8) 09/06/17 06:30 - Hospital Course Hospital Course: Patient is a 71yo male with past medical history of hypertension, hyperlipidemia , diabetes mellitus type 2, gout, CAD, atrial fibrillation, systolic CHF (LVEF 35%) that had presented to [facility] with c/o right knee pain for 2 days. He reported right knee swelling, difficulty standing and pain on ambulation. He denied any trauma, fevers, chills, nausea or vomiting. He also denied any chest pain, palpitations, SOB, abdominal pain, focal weakness, numbness, tingling. He was admitted for further evaluation due to concerns for septic arthritis. Orthopedic surgery was consulted and synovial fluid was sent for further analysis. Knee xray revealed no acute fractures/dislocations. He was started on ABX and seen by ID. Culture revealed no growth and fluid analysis revealed uric acid crystals consistent with gout. He was started on colchicine and antibiotics were discontinued. He was evaluated by physical therapy due to deconditioning and subacute rehabilitation was recommended. He was agreeable to discharge to the transitional care unit for physical therapy. He subsequently stayed at the transitional care unit undergoing physical therapy and had improvement in his ambulation/strength. He was thereafter discharged home with instructions to follow up with his PMD within 1 week of discharge as well as follow up to get his INR checked within 1 week of being discharged. Discharge Exam - Head Exam Head Exam: NORMAL INSPECTION - Eye Exam Eye Exam: EOMI Pupil Exam: PERRL - ENT Exam ENT Exam: Mucous Membranes Moist - Respiratory Exam Respiratory Exam: Clear to PA & Lateral. absent: Rales, Rhonchi, Wheezes - Cardiovascular Exam Cardiovascular Exam: RRR, +S1, +S2. absent: Gallop, Rubs - GI/Abdominal Exam GI & Abdominal Exam: Normal Bowel Sounds, Soft. absent: Distended, Guarding, Rebound, Tenderness - Neurological Exam Neurological exam: Alert, CN II-XII Intact, Oriented x3 - Psychiatric Exam Psychiatric exam: Normal Affect, Normal Mood - Skin Skin Exam: Dry, Intact, Normal Color, Warm Discharge Plan - Discharge Medications Prescriptions: Warfarin [Coumadin] 3 mg PO 1800 #30 tab Warfarin [Coumadin] 3 mg PO 1800 #30 tab traMADol/Acetaminophen [Ultracet 37.5/325 mg] 1 tab PO Q6H PRN #30 tab PRN Reason: Pain, Moderate (4-7) - Follow Up Plan Condition: GOOD Disposition: HOME/ ROUTINE Instructions: Gout, Type 2 Diabetes, Heart Failure, Adult, Sepsis in Adults, Atrial Fibrillation, High Blood Pressure in Adults Additional Instructions: 1. Follow up with your primary doctor within 1 week of discharge. 2. Follow up with your customs officer within 1 week of discharge. 3. Follow up within 1 week to get your INR checked. 4. Continue to take your medications as prescribed. 5. Return to the emergency room should your condition worsen. Referrals: Palmer Whalen MD [Primary Care Provider] - <Kike Holt - Last Filed: 09/09/17 21:16> Provider - Provider Date of Admission: 09/02/17 14:22 Attending physician: Kike Holt MD Primary care physician: Palmer Whalen MD Hospital Course - Lab Results Lab Results: Most Recent Lab Values WBC 7.7 10^3/ul (4.5-11.0) 09/06/17 06:30 RBC 4.89 10^6/uL (3.5-6.1) 09/06/17 06:30 Hgb 12.9 g/dL (14.0-18.0) L 09/06/17 06:30 Hct 38.0 % (42.0-52.0) L 09/06/17 06:30 MCV 77.7 fl (80.0-105.0) L 09/06/17 06:30 MCH 26.4 pg (25.0-35.0) 09/06/17 06:30 MCHC 33.9 g/dl (31.0-37.0) 09/06/17 06:30 RDW 20.3 % (11.5-14.5) H 09/06/17 06:30 Plt Count 190 10^3/uL (120.0-450.0) 09/06/17 06:30 MPV 9.8 fl (7.0-11.0) 09/06/17 06:30 Gran % 57.5 % (50.0-68.0) 09/06/17 06:30 Lymph % (Auto) 30.6 % (22.0-35.0) 09/06/17 06:30 [place] % (Auto) 6.8 % (1.0-6.0) H 09/06/17 06:30 Eos % (Auto) 3.5 % (1.5-5.0) 09/06/17 06:30 Baso % (Auto) 1.6 % (0.0-3.0) 09/06/17 06:30 Gran # 4.43 (1.4-6.5) 09/06/17 06:30 Lymph # (Auto) 2.4 (1.2-3.4) 09/06/17 06:30 [place] # (Auto) 0.5 (0.1-0.6) 09/06/17 06:30 Eos # (Auto) 0.3 (0.0-0.7) 09/06/17 06:30 Baso # (Auto) 0.12 K/mm3 (0.0-2.0) 09/06/17 06:30 PT 39.3 SECONDS (9.4-12.5) H 09/09/17 06:00 INR 3.17 (0.93-1.08) H 09/09/17 06:00 Sodium 136 mmol/L (132-148) 09/06/17 06:30 Potassium 4.8 mmol/L (3.6-5.0) 09/06/17 06:30 Chloride 96 mmol/L (98-107) L 09/06/17 06:30 Carbon Dioxide 29 mmol/L (21-33) 09/06/17 06:30 Anion Gap 16 (10-20) 09/06/17 06:30 BUN 70 mg/dL (7-21) H 09/06/17 06:30 Creatinine 1.3 mg/dl (0.8-1.5) 09/06/17 06:30 Est GFR ( Amer) > 60 09/06/17 06:30 Est GFR (Non-Af Amer) 55 09/06/17 06:30 POC Glucose (mg/dL) 136 mg/dL (65-110) H 09/09/17 11:13 Random Glucose 175 mg/dL (70-110) H 09/06/17 06:30 Calcium 9.4 mg/dL (8.4-10.5) 09/06/17 06:30 Ferritin 109.0 ng/mL 09/03/17 06:30 Total Bilirubin 0.8 mg/dL (0.2-1.3) 09/06/17 06:30 AST 34 U/L (17-59) 09/06/17 06:30 ALT 35 U/L (7-56) 09/06/17 06:30 Alkaline Phosphatase 53 U/L (38-126) 09/06/17 06:30 Total Protein 7.9 g/dL (5.8-8.3) 09/06/17 06:30 Albumin 4.3 g/dL (3.0-4.8) 09/06/17 06:30 Globulin 3.6 gm/dL 09/06/17 06:30 Albumin/Globulin Ratio 1.2 (1.1-1.8) 09/06/17 06:30 - Hospital Course Hospital Course: Pt seen and examined. I have reviewed the note of the center medical director and agree with it. I have discussed the assessment and plan with the resident. I have reviewed the patient's labs and medications. Pt did well and is going home. Will f/u in office in 2 weeks. INR therapeutic. Pain is controlled on NSAIDs.
[2017-09-09 07:14] LABS: INR 3.17 (0.93-1.08); PROTHROMBIN TIME 39.3 SECONDS (9.4-12.5)
[2017-09-09] MEDS: TraMADol/Apap 37.5/325 mg Tab PO PRN (09:29)
[2017-09-09 10:21] VITALS: BP 142/18; PULSE 60; TEMP 97.4
--- NOTE | 2017-09-09 12:43 | CP.PCM.PN ---
Subjective - Date & Time of Evaluation Date of Evaluation: 09/09/17 Time of Evaluation: 11:25 - Subjective Subjective: No fevers, not in distress. Objective - Vital Signs/Intake and Output Vital Signs (last 24 hours): Temp Pulse Resp BP Pulse Ox 98.5 F 45 L 18 128/71 97 09/08/17 10:00 09/08/17 17:36 09/08/17 10:00 09/08/17 17:36 09/08/17 10:00 - Medications Medications: Current Medications Acetaminophen (Tylenol 325mg Tab) 650 mg PO Q6H PRN PRN Reason: Pain, moderate (4-7) Last Admin: 09/09/17 01:18 Dose: 650 mg Carvedilol (Coreg) 25 mg PO BID [facility] Last Admin: 09/08/17 17:36 Dose: 25 mg Colchicine (Colocrys) 0.6 mg PO DAILY [facility] Last Admin: 09/08/17 09:42 Dose: 0.6 mg Digoxin (Digoxin) 0.125 mg PO 1400 [facility] Last Admin: 09/08/17 14:35 Dose: 0.125 mg Diltiazem HCl (Cardizem Cd) 180 mg PO DAILY [facility] Last Admin: 09/08/17 09:42 Dose: 180 mg Famotidine (Pepcid) 20 mg PO BID [facility] Last Admin: 09/08/17 17:38 Dose: 20 mg Gabapentin (Neurontin) 600 mg PO BID [facility] PRN Reason: Protocol Last Admin: 09/08/17 17:38 Dose: 600 mg Gabapentin (Neurontin) 1,200 mg PO HS [facility] PRN Reason: Protocol Last Admin: 09/08/17 21:22 Dose: 1,200 mg Insulin Human Regular (Humulin R Med) 0 units SC [facility] PRN Reason: Protocol Last Admin: 09/08/17 22:16 Dose: 2 unit Nicotine (Nicoderm Cq) 1 patch TD DAILY [facility] Last Admin: 09/08/17 09:42 Dose: 1 patch Spironolactone (Aldactone) 25 mg PO BID [facility] Last Admin: 09/08/17 17:36 Dose: 25 mg Tramadol/Acetaminophen (Ultracet 37.5/325 Mg) 1 tab PO Q6H PRN PRN Reason: Pain, moderate (4-7) Last Admin: 09/08/17 14:37 Dose: 1 tab Warfarin Sodium (Coumadin) 3 mg PO 1800 [facility] PRN Reason: Protocol Last Admin: 09/08/17 17:37 Dose: 3 mg - Labs Labs: 09/06/17 06:30 09/06/17 06:30 PT 32.1 SECONDS (9.4-12.5) H 09/08/17 07:30 INR 2.73 (0.93-1.08) H 09/08/17 07:30 - Constitutional Appears: Chronically Ill - Head Exam Head Exam: NORMAL INSPECTION - Respiratory Exam Respiratory Exam: Decreased Breath Sounds - Cardiovascular Exam Cardiovascular Exam: +S1, +S2 - GI/Abdominal Exam GI & Abdominal Exam: Soft. absent: Tenderness Assessment and Plan - Assessment and Plan (Free Text) Plan: Assessment Inflammatory arthritis of the right knee due to gout, clinically improved acute renal failure history of right sided HCAP HTN DM CAD S/P CABG peptic ulcer disease atrial fibrillation Plan uric acid crystals were seen in the synovial fluid and cultures are negative - we will continue to monitor off antibiotics since he is at risk for hospital- acquired infections continue gout medications
[2017-09-09] MEDS: Digoxin 125 mcg (0.125 mg) Tab PO SCH (12:59)
--- NOTE | 2017-09-09 13:27 | PN ---
DATE: 09/07/2017 SUBJECTIVE: The patient was seen on 09/07/2017, in room 304. No fevers and no chills. No nausea or vomiting. PHYSICAL EXAMINATION: VITAL SIGNS: Temperature 97.4, blood pressure is 128/70, respiratory rate of 18, heart rate of 60. HEENT: Unremarkable. NECK: Supple. LUNGS: Decreased breath sounds. HEART: Normal S1, S2. ABDOMEN: Soft. LABORATORY EXAMINATION: Reveals a white count of 7.7. Creatinine is 1.3. Microbiology is noted. ASSESSMENT AND PLAN: This is a 71-year-old who was seen early that morning in room 304 on 09/07/2017. The patient with inflammatory arthritis of right knee due to gout, acute renal failure, history of right-sided healthcare-associated pneumonia, hypertension, diabetes, and the patient was off antibiotics. The patient has risk for developing nosocomial infections. Nathen Long MD
== END 2017-09-09 13:19 | disposition home health service (06) | DRG 554 ==
LOC: TRCU 14:22
PROVIDERS: ADMIT Internal Medicine Nephrology; ATTEND Internal Medicine Nephrology
PROC: F07Z9FZ Gait Training/Functional Ambulation Treatment using Assistive, Adaptive, Supportive or Protective Equipment (ICD-10-PCS; principal; 2017-09-03)
PROC: F07M6ZZ Therapeutic Exercise Treatment of Musculoskeletal System - Whole Body (ICD-10-PCS; 2017-09-03)
DX: M10.9 Gout, unspecified (principal); I50.22 Chronic systolic (congestive) heart failure; N17.9 Acute kidney failure, unspecified; I25.10 Atherosclerotic heart disease of native coronary artery without angina pectoris; I11.0 Hypertensive heart disease with heart failure; E11.9 Type 2 diabetes mellitus without complications; E78.5 Hyperlipidemia, unspecified; I48.2 Chronic atrial fibrillation; K27.9 Peptic ulcer, site unspecified, unspecified as acute or chronic, without hemorrhage or perforation; M06.4 Inflammatory polyarthropathy; M17.11 Unilateral primary osteoarthritis, right knee; Z79.4 Long term (current) use of insulin; Z85.51 Personal history of malignant neoplasm of bladder; F17.210 Nicotine dependence, cigarettes, uncomplicated; Z95.1 Presence of aortocoronary bypass graft; Z95.5 Presence of coronary angioplasty implant and graft

== ENCOUNTER 2018-03-28 12:33 | Inpatient (IN) | payer MEDICARE ==
[2018-03-28 12:34] VITALS: PULSE 65
[2018-03-28] MEDS ORDERED: Cefepime 1gm in NS 100ml 1 GM/100 ML BAG IVPB STA (14:06)
[2018-03-28] MEDS ORDERED: Vancomycin 1gm in NS 250ml 1 GM/250 ML BAG IVPB STA (14:06)
--- NOTE | 2018-03-28 14:25 | ED PDOC ---
Arrival/HPI - General Chief Complaint: Abdominal Pain Time Seen by Provider: 03/28/18 13:22 Historian: Patient, Caregiver (childhood friend ) - History of Present Illness Narrative History of Present Illness (Text): Prashant Tolentino is a 72 year old male who presents to the Emergency department with complaints of abdominal distention and bilateral lower extremity swelling since two days. Patient informs that he is retaining an increasing amount of water with mild difficulty urinating since one day ago. Patient informs difficulty breathing secondary to abdominal distention. Patient states he has an appointment with his presser all around on Wednesday. Patient denies any fevers, chills, headache, dizziness, chest pain, dyspnea on exertion, cough, abdominal pain, nausea, vomiting, diarrhea, back pain, neck pain, or any other complaints. Past medical history: hypertension, hyperlipidemia, diabetes mellitus type 2, gout, CAD s/p CABG, A-fib, systolic CHF (LVEF 35%) Past surgical history: CABG, permanent pacemaker implantation. PMD: Dr. Whalen Laborer Cutting Tool: Dr. Spaulding Time/Duration: < week Symptom Course: Worsening Activities at Onset: Light Context: Home Past Medical History - Provider Review Nursing Documentation Reviewed: Yes - Infectious Disease Hx of Infectious Diseases: None - Tetanus Immunization Tetanus Immunization: Unknown - Cardiac Hx Cardiac Disorders: Yes (CAD; S/P CABG) - Pulmonary Hx Respiratory Disorders: No - Neurological Hx Neurological Disorder: Yes Hx Seizures: Yes - HEENT Hx HEENT Disorder: No - Renal Hx Renal Disorder: No - Endocrine/Metabolic Hx Diabetes Mellitus Type 2: Yes - Hematological/Oncological Hx Blood Disorders: Yes Hx Cancer: Yes (bladder CA) - Integumentary Hx Dermatological Disorder: No - Musculoskeletal/Rheumatological Hx Arthritis: Yes (Gout) - Gastrointestinal Hx Gastrointestinal Disorders: Yes (POOR APPETITE) - Genitourinary/Gynecological Hx Genitourinary Disorders: No - Psychiatric Hx Psychophysiologic Disorder: No Hx Substance Use: No - Surgical History Hx Cardiac Catheterization: Yes Hx Coronary Stent: Yes - Anesthesia Hx Anesthesia: Yes Hx Anesthesia Reactions: No Hx Malignant Hyperthermia: No - Suicidal Assessment Feels Threatened In Home Enviroment: No Family/Social History - Physician Review Nursing Documentation Reviewed: Yes Family/Social History: Unknown Family HX Smoking Status: Heavy Smoker > 10 Cigarettes Daily Hx Alcohol Use: No Hx Substance Use: No Hx Substance Use Treatment: No Allergies/Home Meds Allergies/Adverse Reactions: Allergies No Known Allergies Allergy (Verified 09/02/17 15:44) Home Medications: Home Meds Medication Instructions Recorded Confirmed Colchicine [Colcrys] 0.6 mg PO DAILY 04/05/17 09/02/17 Review of Systems - Physician Review All systems were reviewed & negative as marked: Yes - Review of Systems Constitutional: absent: Fevers, Night Sweats Respiratory: SOB (secondary to abdominal distention ) Cardiovascular: Edema (bilateral lower extremities and abdominal ) Gastrointestinal: absent: Abdominal Pain, Diarrhea, Nausea, Vomiting Genitourinary Male: Frequency, Urinary Output Changes Musculoskeletal: absent: Back Pain, Neck Pain Skin: absent: Rash Neurological: absent: Headache, Dizziness Physical Exam Vital Signs Reviewed: Yes Vital Signs Temp Pulse Resp BP Pulse Ox 03/28/18 12:34 97.6 F 120 H 18 112/74 94 L Temperature: Afebrile Blood Pressure: Normal Pulse: Tachycardic Respiratory Rate: Normal Appearance: Positive for: Well-Appearing, Non-Toxic, Comfortable Pain Distress: None Mental Status: Positive for: Alert and Oriented X 3 - Systems Exam Head: Present: Atraumatic, Normocephalic Pupils: Present: PERRL Extroacular Muscles: Present: EOMI Conjunctiva: Present: Normal Mouth: Present: Moist Mucous Membranes Pharnyx: Present: Normal. No: EXUDATE Neck: Present: Normal Range of Motion. No: Meningeal Signs Respiratory/Chest: Present: Clear to Auscultation, Good Air Exchange. No: Respiratory Distress, Accessory Muscle Use Cardiovascular: Present: Normal S1, S2, Irregular Rhythm, Tachycardic. No: Murmurs Abdomen: Present: Distention. No: Tenderness, Peritoneal Signs Back: Present: Normal Inspection. No: CVA Tenderness Upper Extremity: Present: Normal Inspection. No: Cyanosis, Edema Lower Extremity: Present: Edema (2+ pitting edema) Neurological: Present: GCS=15, CN II-XII Intact, Speech Normal Skin: Present: Warm, Dry, Normal Color. No: Rashes Psychiatric: Present: Alert, Oriented x 3, Normal Insight, Normal Concentration Medical Decision Making ED Course and Treatment: Impression: Patient is a 72 year old male who presents to the Emergency department with abdominal distention and lower bilateral extremity swelling. No history of liver issues or alcoholisim. Pt notes that he has never had a paracentesis. No fever, chills or night sweats. Pt notes diffuse abdominal swelling. No trauma or fall noted. Likely worsening CHF w/ edema. No penile or testicular pain. No rash. Plan: -- Labs -- CT Abd / Pelvis W/O PO or IV Contrast -- EKG -- Chest X-Ray -- Urinalysis -- Reassess and disposition Prior Visits: Notes and results from previous visits were reviewed. Progress Notes: 03/28/18 16:44 HR 115, Afib mildly increased rate, pt in NAD endorsed to Dr. Stanton: admitted to his service 03/28/18 17:17 BNP elevated, Additional Lasix ordered. pt notes taking his AM dose. EKG 126, afib w/ rvr, no stemi pt not on colchicine currently cardizem ordered per Dr. Valderrama for afib w/ mild rvr 03/28/18 1807 pt in NAD, HR improving, now 110 from 126 03/28/18 18:08 - RAD Interpretation Radiology Orders: 03/28/18 14:06 CHEST TWO VIEWS (PA/LAT) [RAD] Stat 03/28/18 14:16 ABDOMEN & PELVIS [ABD & PELVIS W/O PO OR IV CONT] [CT] Stat - Scribe Statement The provider has reviewed the documentation as recorded by the Lukaszibelva Campos training with Julia All medical record entries made by the Lukaszibelva were at my direction and personally dictated by me. I have reviewed the chart and agree that the record accurately reflects my personal performance of the history, physical exam, medical decision making, and the department course for this patient. I have also personally directed, reviewed, and agree with the discharge instructions and disposition. Disposition/Present on Arrival - Present on Arrival Any Indicators Present on Arrival: No History of DVT/PE: No History of Uncontrolled Diabetes: No Urinary Catheter: No History of Decub. Ulcer: No History Surgical Site Infection Following: None - Disposition Have Diagnosis and Disposition been Completed?: Yes Diagnosis: CHF (congestive heart failure) Disposition Time: 16:43 Patient Problems: Current Active Problems Problem Status Onset CHF (congestive heart failure) Acute Condition: STABLE
[2018-03-28 14:52] LABS: BASO # 0.05 K/mm3 (0.0-2.0); BASO % 0.7 % (0.0-3.0); EOS % 0.6 % (1.5-5.0); LYMPH # 1.2 (1.2-3.4); LYMPH % 17.2 % (22.0-35.0); MEAN CELL VOLUME 85.9 fl (80.0-105.0); MEAN CORPUSCULAR HEMOGLOBIN 28.5 pg (25.0-35.0); MEAN CORPUSCULAR HGB CONC 33.2 g/dl (31.0-37.0); MEAN PLATELET VOLUME 10.4 fl (7.0-11.0); MONO # 0.8 (0.1-0.6); RBC 4.91 10^6/uL (3.5-6.1); RED CELL DISTRIBUTION WIDTH 17.4 % (11.5-14.5); WHITE BLOOD COUNT 7.1 10^3/uL (4.5-11.0)
[2018-03-28 15:02] LABS: ALB/GLOB RATIO 1.2 (1.1-1.8); ALBUMIN 4.1 g/dL (3.0-4.8)
--- NOTE | 2018-03-28 15:12 | CT ---
Date of service: 03/28/2018 PROCEDURE: CT Abdomen and Pelvis without intravenous contrast HISTORY: abd distension COMPARISON: 09/29/2017 TECHNIQUE: Without contrast.. Contrast dose: Radiation dose: Total exam DLP = 1053.38 mGy-cm. This CT exam was performed using one or more of the following dose reduction techniques: Automated exposure control, adjustment of the mA and/or kV according to patient size, and/or use of iterative reconstruction technique. FINDINGS: LOWER THORAX: Moderate size bilateral pleural effusions. Coronary artery calcifications and aortic calcification LIVER: Unremarkable. No gross lesion or ductal dilatation. GALLBLADDER AND BILE DUCTS: Multiple gallstones PANCREAS: Unremarkable. No gross lesion or ductal dilatation. SPLEEN: Unremarkable. ADRENALS: 3.7 x 4.9 cm fatty lesion in the left adrenal gland. No change KIDNEYS AND URETERS: Unremarkable. No hydronephrosis. No solid mass. VASCULATURE: Unremarkable. No aortic aneurysm. Aortic calcification BOWEL: Unremarkable. No obstruction. No gross mural thickening. APPENDIX: Unremarkable. Normal appendix. PERITONEUM: Moderate ascites. Subcutaneous edema consistent with anasarca. LYMPH NODES: Unremarkable. No enlarged lymph nodes. BLADDER: Unremarkable. REPRODUCTIVE: Unremarkable. BONES: No acute fracture. OTHER FINDINGS: None. IMPRESSION: Moderate pleural effusions and a moderate volume of ascites. Multiple gallstones. No acute findings
[2018-03-28 15:13] LABS: TROPONIN I 0.07 ng/mL
--- NOTE | 2018-03-28 16:02 | RAD ---
Date of service: 03/28/2018 HISTORY: lung ca, fever on chemo COMPARISON: 07/09/2017 TECHNIQUE: Chest PA and lateral FINDINGS: LUNGS: No active pulmonary disease. PLEURA: No significant pleural effusion identified. No pneumothorax apparent. CARDIOVASCULAR: No aortic atherosclerotic calcification present. Normal cardiac size. Improved vascular congestion OSSEOUS STRUCTURES: No significant abnormalities. VISUALIZED UPPER ABDOMEN: Normal. OTHER FINDINGS: Single lead pacemaker IMPRESSION: No active disease.
[2018-03-28 16:28] LABS: VENOUS BLOOD GAS BASE EXCESS -3.9 mmol/L (0.0-2.0); VENOUS BLOOD GAS PO2 23 mm/Hg (30-55); VENOUS BLOOD PH 7.34 (7.32-7.43)
[2018-03-28] MEDS: diltiaZEM IVPB 100mg in NS 100 ML IV PRN ×2 (18:09→23:20)
[2018-03-28 20:21] LABS: VENOUS BLOOD GAS PO2 106 mm/Hg (30-55); VENOUS BLOOD PH 7.35 (7.32-7.43)
--- NOTE | 2018-03-28 23:59 | CARD ---
APPROVED REPORT Date of service: 03/28/2018 EKG Measurement Heart [id number] <Conclusion> Poor data quality, interpretation may be adversely affected Atrial fibrillation with rapid ventricular response Left axis deviation Anterolateral infarct, age undetermined NDSTT abnormalities Abnormal ECG
[2018-03-29] MEDS: diltiaZEM IVPB 100mg in NS 100 ML IV PRN ×2 (02:25→09:39)
[2018-03-29 03:09] LABS: VENOUS BLOOD GAS BASE EXCESS -6.8 mmol/L (0.0-2.0); VENOUS BLOOD GAS PO2 55 mm/Hg (30-55); VENOUS BLOOD PH 7.35 (7.32-7.43)
[2018-03-29 03:57] VITALS: BMI 28.4
--- NOTE | 2018-03-29 06:10 | CP.PCM.HP ---
History of Present Illness - History of Present Illness History of Present Illness: 72yo male PMHx Afib, systolic CHF, HTN, HLD, DM2, Gout, CAD s/p CABG, AICD, presented with b/l LE swelling and abdominal distention worsening over 2 days [employer]. Patient complained of feeling like he was retaining fluid and complained of difficulty urinating and some associated sob. In the ER patient was found to be in rapid Afib and was placed on a cardizem gtt and admitted to telemetry. This AM patient was seen and examined at bedside and he was resting comfortably. He reported that he was still having some mild lower abdominal discomfort but believed it was secondary to not having urinated well. 12 point ROS was reviewed and negative. Cardizem gtt was discontinued by cardio and patient was placed on PO lopressor. Later in the afternoon patient began to complain of b/l lower back pain and discomfort and was unable to find a comfortable position to rest in. He was refusing the bains at first but finally agreed and had 500cc output when placed. Patient began to complain of weakness and discomfort and reported to urged to have BM however was unable to when he was at the commode. He was ao x 3 and denied any chest pain but did admit to some sob. Patient denied any abdominal pain but continued to complain of b/l LBP. Patient clinically worsened and started to desaturate and an TRAY PACKER was called. Patient was also noted to be hypotensive and started on levophed gtt and transferred to MICU for further management. In the MICU patient reported some mild improvement in symptoms. Patient's POA was at bedside and patient was confirmed to be DNR/DNI. Patient continued to complain of weakness but denied any chest pain and SOB. PMHx: HTN, HLD, DM2, Gout, CAD s/p CABG, atrial fibrillation, CHF systolic last known EF of 35%, gout PSurgHx: Gastric CA resection 30years ago, Defibrilator, CABG, Right Foot TMA SocHx: Lives at home ALL: NKDA Meds: MAR reviewed PMD: Dr. Whalen Stacker Driver: Dr. Spaulding Present on Admission - Present on Admission Any Indicators Present on Admission: No Review of Systems - Review of Systems All systems: reviewed and no additional remarkable complaints except Review of Systems: as per HPI Past Patient History - Infectious Disease Hx of Infectious Diseases: None - Tetanus Immunizations Tetanus Immunization: Unknown - Past Social History Smoking Status: Heavy Smoker > 10 Cigarettes Daily - CARDIAC Hx Cardia Arrhythmia: Yes (Afib) Hx Congestive Heart Failure: Yes Hx Hypercholesterolemia: Yes Hx Hypertension: Yes Hx Internal Defibrillator: Yes Hx Pacemaker: Yes (PPM) - PULMONARY Hx Asthma: Yes Hx Emphysema: Yes - NEUROLOGICAL Hx Seizures: Yes - HEENT Hx HEENT Problems: Yes (GLASSES) - RENAL Hx Chronic Kidney Disease: No - ENDOCRINE/METABOLIC Hx Diabetes Mellitus Type 2: Yes - HEMATOLOGICAL/ONCOLOGICAL Hx Cancer: Yes (Lung, Bladder) Hx Chemotherapy: Yes - INTEGUMENTARY Hx Dermatological Problems: No - MUSCULOSKELETAL/RHEUMATOLOGICAL Hx Falls: No Hx Gout: Yes - GASTROINTESTINAL Hx Gastrointestinal Disorders: Yes (POOR APPETITE) - GENITOURINARY/GYNECOLOGICAL Hx Genitourinary Disorders: No - PSYCHIATRIC Hx Substance Use: No - SURGICAL HISTORY Hx Open Heart Surgery: Yes (CABG) - ANESTHESIA Hx Anesthesia: Yes Hx Anesthesia Reactions: No Hx Malignant Hyperthermia: No Meds Allergies/Adverse Reactions: Allergies Allergy/AdvReac Type Severity Reaction Status Date / Time No Known Allergies Allergy Verified 09/02/17 15:44 Physical Exam - Constitutional Appears: Toxic, In Acute Distress - Head Exam Head Exam: ATRAUMATIC, NORMAL INSPECTION, NORMOCEPHALIC - Eye Exam Eye Exam: EOMI, Normal appearance. absent: Conjunctival injection, Scleral icterus - ENT Exam ENT Exam: Mucous Membranes Dry - Respiratory Exam Respiratory Exam: Rales (mild posterior lung caal b/l). absent: Accessory Muscle Use, Rhonchi, Wheezes - Cardiovascular Exam Cardiovascular Exam: Bradycardia, Irregular Rhythm, +S1, +S2 - GI/Abdominal Exam GI & Abdominal Exam: Distended, Soft, Tenderness (mild to palpation in lower abdomen) - Extremities Exam Extremities exam: Positive for: pedal edema (+2 b/l ), pedal pulses present Additional comments: Right Foot TMA - Back Exam Back exam: NORMAL INSPECTION. absent: rash noted, tenderness - Neurological Exam Neurological exam: Alert, Oriented x3 - Psychiatric Exam Psychiatric exam: Anxious - Skin Skin Exam: Dry, Intact, Pallor Results - Vital Signs Recent Vital Signs: Last Vital Signs Temp 98.1 F 03/28/18 23:05 Pulse 105 H 03/29/18 02:00 Resp 20 03/29/18 01:14 BP 112/60 03/28/18 23:05 Pulse Ox 94 L 03/28/18 23:05 - Labs Result Diagrams: 03/29/18 15:15 03/29/18 18:30 Labs: Laboratory Results - last 24 hr 03/28/18 03/28/18 03/28/18 14:45 14:45 16:10 WBC 7.1 RBC 4.91 Hgb 14.0 Hct 42.2 MCV 85.9 D MCH 28.5 MCHC 33.2 RDW 17.4 H Plt Count 224 MPV 10.4 Neut % (Auto) 70.5 H Lymph % (Auto) 17.2 L Trigg % (Auto) 11.0 H Eos % (Auto) 0.6 L Baso % (Auto) 0.7 Lymph # (Auto) 1.2 Trigg # (Auto) 0.8 H Eos # (Auto) 0.0 Baso # (Auto) 0.05 Absolute Neuts (auto) 5.00 pO2 23 L VBG pH 7.34 VBG pCO2 40.0 VBG HCO3 21.6 VBG Total CO2 22.8 VBG O2 Sat (Calc) 41.7 VBG Base Excess -3.9 L VBG Potassium 5.7 H Glucose 178 H Lactate 3.6 H FiO2 21.0 Blood Gas Comments Given to rn Crit Value Called To Rn roaquin Crit Value Called By Ec Blood Gas Notified Time 1627 Sodium 134 132.0 Potassium 5.3 H Chloride 101 99.0 Carbon Dioxide 21 Anion Gap 18 BUN 60 H Creatinine 2.6 H Est GFR ( Amer) 30 Est GFR (Non-Af Amer) 25 Random Glucose 175 H Calcium 9.0 Magnesium 2.2 Total Bilirubin 0.9 AST 38 ALT 18 Alkaline Phosphatase 95 Ammonia Troponin I 0.07 D NT-Pro-B Natriuret Pep 37482 H Total Protein 7.6 Albumin 4.1 Globulin 3.5 Albumin/Globulin Ratio 1.2 Lipase 25 Venous Blood Potassium 5.7 H 03/28/18 03/28/18 03/29/18 17:32 20:17 02:30 WBC RBC Hgb Hct MCV MCH MCHC RDW Plt Count MPV Neut % (Auto) Lymph % (Auto) Trigg % (Auto) Eos % (Auto) Baso % (Auto) Lymph # (Auto) Trigg # (Auto) Eos # (Auto) Baso # (Auto) Absolute Neuts (auto) pO2 106 H 55 VBG pH 7.35 7.35 VBG pCO2 34.0 L 32.0 L VBG HCO3 18.8 L 17.7 L VBG Total CO2 19.8 L 18.7 L VBG O2 Sat (Calc) 96.4 H 89.1 H VBG Base Excess -6.0 L -6.8 L VBG Potassium 5.0 5.1 Glucose 170 H 197 H Lactate 2.8 H 2.7 H FiO2 21.0 21.0 Blood Gas Comments Crit Value Called To Miguel Angel martins rn 2rno Crit Value Called By Atc Jsm Blood Gas Notified Time 2019 309 Sodium 132.0 132.0 Potassium Chloride 100.0 99.0 Carbon Dioxide Anion Gap BUN Creatinine Est GFR ( Amer) Est GFR (Non-Af Amer) Random Glucose Calcium Magnesium Total Bilirubin AST ALT Alkaline Phosphatase Ammonia 34 H Troponin I NT-Pro-B Natriuret Pep Total Protein Albumin Globulin Albumin/Globulin Ratio Lipase Venous Blood Potassium 5.0 5.1 Assessment & Plan - Assessment and Plan (Free Text) Assessment: -Acute systolic CHF exacerbation on chronic CHF -Lactic acidosis -Metabolic acidosis -Supratherapeutic INR -HUGO -Hyperkalemia -Abdominal ascites -Rapid Afib- controlled -HTN -HLD -DM2 -CAD s/p CABG -AICD -Liver cirrhosis -Tobacco abuse -DNR/DNI Plan: Daytime events noted. Patient transferred to MICU for further management. Patient's vitals, blood work, and imaging noted. Blood work remarkable for severe metabolic acidosis with worsening renal failure. Unknown cause of rapid rise in lactic acid. Sepsis protocol followed during TRAY PACKER with patient given 1L bolus and started on broad spectrum IV abx. Patient blood cultures prelim negative x 2 and urine culture and UA pending. Patient's abdominal distention concerning fro SBP however no leukocytosis or fevers make sepsis low on differential. In light of Afib ischemic bowel/acute abdomen was concern; surgery consulted and in light of CT Abd/pelvis and clinical picture believe abdominal s ource unlikely the cause of elevated lactate. Supratherapuetic INR noted; coumadin on hold. Patient on bicarb gtt and hydration with MAP > 65. Cocktail of insulin, D50, calcium gluconate administered for hyperkalemia with repeat BMP ordered. Will hold off HD at this time and medically manage. Patient continued on levophed gtt. Patient ordered Vitamin K and 4U ffp to be transferred. Echocardiogram: EF 10% with systolic function is severely impaired, global hypokinesis of LV, no LV thrombus, RV mod dilated. Continue diuresis and lopressor, digoxin, and aldactone. Cardio on board. Abd u/s ordered to f/u for abdominal distention. Renal u/s ordered to f/u. DVT and GI ppx in place. Maintain normotension, normothermia, euglycemia. Continue management as per MICU team. Discussed with Dr. Jonathon Washington PGY3
[2018-03-29 07:09] LABS: HEMOGLOBIN 13.1 g/dL (14.0-18.0); MEAN CELL VOLUME 85.4 fl (80.0-105.0); MEAN CORPUSCULAR HEMOGLOBIN 28.1 pg (25.0-35.0); MEAN CORPUSCULAR HGB CONC 32.9 g/dl (31.0-37.0); MEAN PLATELET VOLUME 10.2 fl (7.0-11.0); RBC 4.66 10^6/uL (3.5-6.1); RED CELL DISTRIBUTION WIDTH 17.5 % (11.5-14.5); WHITE BLOOD COUNT 7.3 10^3/uL (4.5-11.0)
[2018-03-29 07:23] LABS: ALB/GLOB RATIO 1.2 (1.1-1.8); ALBUMIN 4.1 g/dL (3.0-4.8); CALCIUM 8.9 mg/dL (8.4-10.5)
[2018-03-29 08:10] VITALS: O2SAT 93
[2018-03-29 08:58] LABS: VENOUS BLOOD GAS BASE EXCESS -8.1 mmol/L (0.0-2.0); VENOUS BLOOD GAS PO2 61 mm/Hg (30-55); VENOUS BLOOD PH 7.29 (7.32-7.43)
[2018-03-29] MEDS: Albuterol-Ipratrop 3 mg / 0.5 (3 ml) UD IH SCH ×2 (09:03→20:44)
[2018-03-29 10:29] LABS: FREE T4 1.59 ng/dL (0.78-2.19)
[2018-03-29 12:25] LABS: VENOUS BLOOD GAS BASE EXCESS -9.9 mmol/L (0.0-2.0); VENOUS BLOOD GAS PO2 67 mm/Hg (30-55)
[2018-03-29 13:06] VITALS: RESP 19
[2018-03-29] MEDS: Insulin Lispro (humaLOG) LOW Coverage SC SCH ×3 (13:31→22:04)
[2018-03-29] MEDS ORDERED: Morphine 2 mg/ml ISec IVP ONE (13:36)
[2018-03-29] MEDS ORDERED: Digoxin 125 mcg (0.125 mg) Tab PO SCH (14:00)
--- NOTE | 2018-03-29 14:22 | US ---
Date of service: 03/29/2018 PROCEDURE: Ultrasound of the Kidneys HISTORY: ARF COMPARISON: None available. TECHNIQUE: Sonogram of the kidneys. FINDINGS: RIGHT KIDNEY: Measures: 11.2 cm. Normal in size, contour and echogenicity. No stone, solid mass lesion or hydronephrosis visualized. LEFT KIDNEY: Measures: 12.9 cm. Normal in size, contour and echogenicity. No stone, solid mass lesion or hydronephrosis visualized. OTHER FINDINGS: Extensive ascites IMPRESSION: Unremarkable renal sonogram. Extensive ascites.
[2018-03-29] MEDS: Albuterol-Ipratrop 3 mg / 0.5 (3 ml) UD IH PRN (14:30)
[2018-03-29 14:53] LABS: ARTERIAL BLOOD GAS HCO3 8.2 mmol/L (21-28); ARTERIAL BLOOD GAS O2 SAT 93.6 % (95-98); ARTERIAL BLOOD GAS PCO2 23 mm/Hg (35-45); ARTERIAL BLOOD GAS PH 7.16 (7.35-7.45); ARTERIAL BLOOD GAS TCO2 8.9 mmol.L (22-28)
[2018-03-29] MEDS ORDERED: Sodium Bicarbonate (8.4%) 50 Meq Syringe IVP ONE (14:58)
[2018-03-29] MEDS ORDERED: Vancomycin 1gm in NS 250ml 1 GM/250 ML BAG IVPB STA (15:01)
[2018-03-29] MEDS ORDERED: MEROPENEM 500 MG in NS 500 MG/50 ML BAG IVPB ONE (15:01)
--- NOTE | 2018-03-29 15:11 | CP.PCM.PCO ---
Physician Communication Note - Physician Communication Note Physician Communication Note: admit w.CHF/ascites, tachypneic, PARTRIDGE FARMER called for resp distress.
[2018-03-29] MEDS ORDERED: Sodium Chloride 0.9% 1,000 ML IV STA (15:21)
[2018-03-29] MEDS ORDERED: NOREPINEPHRINE BIT/0.9 % NACL 4 MG/250 ML BAG IV PRN (15:22)
--- NOTE | 2018-03-29 15:22 | CARD ---
APPROVED REPORT Date of service: 03/29/2018 EXAM: Two-dimensional and M-mode echocardiogram with Doppler and color Doppler. INDICATION Atrial Fibrillation B/L LE EDEMA 2D DIMENSIONS Left Atrium (2D)4.0 (1.6-4.0cm)IVSd1.1 (0.7-1.1cm) LVDd4.7 (3.9-5.9cm)PWd1.1 (0.7-1.1cm) LVDs4.5 (2.5-4.0cm)FS (%) 4.5 % LVEF (%)10.4 (>50%) M-Mode DIMENSIONS Aortic Root3.10 (2.2-3.7cm)Aortic Cusp Exc.1.00 (1.5-2.0cm) Aortic Valve AoV Peak Whfncdfy471.0cm/Loreta Peak GR.7mmHg Mitral Valve E/A ratio0.0 TDI E/Lateral E'0.0E/Medial E'0.0 Pulmonary Valve PV Peak Hjtaadsn69.5cm/sPV Peak Grad.1mmHg Tricuspid Valve TR Peak [id number] [id number] Peak Gr.5mmHg [id number] LEFT VENTRICLE The left ventricle is normal size. There is normal left ventricular wall thickness. The systolic function is severely impaired. There is global hypokinesis of the left ventricle. No left ventricle thrombus noted on this study. RIGHT VENTRICLE The right ventricle is moderately dilated. There is normal right ventricular wall thickness. Systolic function is severely reduced. There is a pacemaker lead in the right ventricle. ATRIA The left atrium is borderline dilated. The right atrium is moderately dilated. AORTIC VALVE The aortic valve is moderately thickened. No aortic regurgitation is present. There is no aortic valvular stenosis. MITRAL VALVE The mitral valve is moderately thickened. Mitral regurgitation is mild. There is no mitral valve stenosis. TRICUSPID VALVE The tricuspid valve is normal in structure. There is mild tricuspid regurgitation. PULMONIC VALVE There is mild pulmonic valvular regurgitation. GREAT VESSELS The aortic root is normal in size. The IVC is dilated. PERICARDIAL EFFUSION There is no pericardial effusion. <Conclusion> The left ventricle is normal size. There is normal left ventricular wall thickness. The systolic function is severely impaired. There is global hypokinesis of the left ventricle. No left ventricle thrombus noted on this study. The right ventricle is moderately dilated.RV Systolic function is severely reduced. Mitral regurgitation is mild. There is mild tricuspid regurgitation. There is mild pulmonic valvular regurgitation.
[2018-03-29 15:42] LABS: BASO # 0.05 K/mm3 (0.0-2.0); BASO % 0.7 % (0.0-3.0); EOS % 0.1 % (1.5-5.0); HEMOGLOBIN 13.4 g/dL (14.0-18.0); LYMPH # 1.1 (1.2-3.4); LYMPH % 16.7 % (22.0-35.0); MEAN CELL VOLUME 86.7 fl (80.0-105.0); MEAN CORPUSCULAR HEMOGLOBIN 28.4 pg (25.0-35.0); MEAN CORPUSCULAR HGB CONC 32.8 g/dl (31.0-37.0); MEAN PLATELET VOLUME 9.8 fl (7.0-11.0); MONO # 0.4 (0.1-0.6); MONO % 6.5 % (1.0-6.0); RBC 4.72 10^6/uL (3.5-6.1); RED CELL DISTRIBUTION WIDTH 17.6 % (11.5-14.5); WHITE BLOOD COUNT 6.8 10^3/uL (4.5-11.0)
[2018-03-29 15:52] LABS: ALB/GLOB RATIO 1.2 (1.1-1.8); CALCIUM 8.4 mg/dL (8.4-10.5)
[2018-03-29 15:57] LABS: PARTIAL THROMBOPLASTIN TIME 76.4 Seconds (26.9-38.3)
[2018-03-29] MEDS ORDERED: Sodium Chloride 0.9% 1,000 ML IV SCH (16:00)
[2018-03-29] MEDS ORDERED: Dextrose 5%/0.9% NS 1,000 ML IV SCH (16:00)
[2018-03-29] MEDS ORDERED: Insulin Regular 1 UNITS/0.01 ML ML IV ONE (16:04)
--- NOTE | 2018-03-29 16:07 | CP.PCM.CON ---
<Waqas Hester - Last Filed: 03/29/18 16:51> History of Present Illness - History of Present Illness History of Present Illness: Shamar Hester PGY2 - ICU Consult Note for Dr. Guevara Consulted reason: Metabolic acidosis, Respiratory distress HPI: 72 year old male with past medical history of HTN, HLD, DM2, Gout, CAD, atrial fibrillation, CHF systolic last known EF of 35% who presented to [facility] with complaints of a 2 day history of abdominal distention, increased bilateral lower extremity swelling and increased difficulty breathing. EXTENSION PROFESSOR was called on patient for respiratory distress. Patient was placed on non-rebreather @15L with irregular rhythm and fluid on lung exam. Patient was noted to have elevated l actate of 9.8 and metabolic acidosis with pH of 7.16. Patient was given IVF bolus, 1 amp bicarb and empiric vancomycin and meropenem. Patient was noted to become hypotensive and placed on IV levophed peripherally and transferred to ICU. Patient was noted to be somnolent with limited responsiveness to questioning. 12 point ROS is limited secondary to patient mentation. PMH: HTN, HLD, DM2, Gout, CAD s/p CABG, atrial fibrillation, CHF systolic last known EF of 35%, gout PSH: Pacemaker, CABG SOCHx: Lives at home ALL: NKDA MEDS: MAR reviewed PMD: Dr. Whalen Review of Systems - Review of Systems Systems not reviewed;Unavailable: Other (patient noted to be somnlent with limited reponse) Past Patient History - Infectious Disease Hx of Infectious Diseases: None - Tetanus Immunizations Tetanus Immunization: Unknown - Past Social History Smoking Status: Heavy Smoker > 10 Cigarettes Daily - CARDIAC Hx Cardia Arrhythmia: Yes (Afib) Hx Congestive Heart Failure: Yes Hx Hypercholesterolemia: Yes Hx Hypertension: Yes Hx Internal Defibrillator: Yes Hx Pacemaker: Yes (PPM) - PULMONARY Hx Asthma: Yes Hx Emphysema: Yes - NEUROLOGICAL Hx Seizures: Yes - HEENT Hx HEENT Problems: Yes (GLASSES) - RENAL Hx Chronic Kidney Disease: No - ENDOCRINE/METABOLIC Hx Diabetes Mellitus Type 2: Yes - HEMATOLOGICAL/ONCOLOGICAL Hx Cancer: Yes (Lung, Bladder) Hx Chemotherapy: Yes - INTEGUMENTARY Hx Dermatological Problems: No - MUSCULOSKELETAL/RHEUMATOLOGICAL Hx Falls: No Hx Gout: Yes - GASTROINTESTINAL Hx Gastrointestinal Disorders: Yes (POOR APPETITE) - GENITOURINARY/GYNECOLOGICAL Hx Genitourinary Disorders: No - PSYCHIATRIC Hx Substance Use: No - SURGICAL HISTORY Hx Open Heart Surgery: Yes (CABG) - ANESTHESIA Hx Anesthesia: Yes Hx Anesthesia Reactions: No Hx Malignant Hyperthermia: No Meds Allergies/Adverse Reactions: Allergies Allergy/AdvReac Type Severity Reaction Status Date / Time No Known Allergies Allergy Verified 09/02/17 15:44 - Medications Medications: Current Medications Albuterol/Ipratropium (Duoneb 3 Mg/0.5 Mg (3 Ml) Ud) 3 ml IH BIDRESP JASWANT Last Admin: 03/29/18 09:03 Dose: 3 ml Albuterol/Ipratropium (Duoneb 3 Mg/0.5 Mg (3 Ml) Ud) 3 ml IH [id number] PRN PRN Reason: Shortness of Breath Last Admin: 03/29/18 14:30 Dose: 3 ml Digoxin (Digoxin) 0.125 mg PO 1400 JASWANT Last Admin: 03/29/18 15:44 Dose: Not Given Famotidine (Pepcid) 20 mg PO DAILY [facility] Furosemide (Lasix) 40 mg IVP Q12 JASWANT Last Admin: 03/29/18 09:29 Dose: 40 mg Gabapentin (Neurontin) 600 mg PO BID JASWANT; Protocol Last Admin: 03/29/18 09:29 Dose: 600 mg Vancomycin HCl (Vancomycin 1gm) 1 gm in 250 mls @ 167 mls/hr IVPB STAT STA; Protocol Stop: 03/29/18 16:30 Sodium Chloride (Sodium Chloride 0.9%) 1,000 mls @ 999 mls/hr IV .Q1H1M STA Stop: 03/29/18 16:21 NOREPINEPHRINE BIT/0.9 % NACL (Levophed 4 Mg/ 250 Ml Ns Premixed) 4 mg in 250 mls @ 15 mls/hr IV .[id number] PRN; Protocol PRN Reason: TITRATE PER MD ORDER Dextrose/Sodium Chloride (Dextrose 5%/0.9% Ns 1000 Ml) 1,000 mls @ 100 mls/hr IV .Q10H [facility] Insulin Human Lispro (Humalog Low) 0 units SC ACHS [facility]; Protocol Last Admin: 03/29/18 13:31 Dose: 3 units Metoprolol Tartrate (Lopressor) 50 mg PO BRKDIN [facility] Spironolactone (Aldactone) 25 mg PO BID JASWANT Last Admin: 03/29/18 09:29 Dose: 25 mg Physical Exam - Head Exam Head Exam: ATRAUMATIC, NORMAL INSPECTION, NORMOCEPHALIC - Eye Exam Eye Exam: EOMI, PERRL - ENT Exam ENT Exam: Mucous Membranes Moist - Respiratory Exam Respiratory Exam: Clear to Auscultation Bilateral - Cardiovascular Exam Cardiovascular Exam: Bradycardia, REGULAR RHYTHM, +S1, +S2 - GI/Abdominal Exam GI & Abdominal Exam: Distended, Guarding, Tenderness. absent: Diminished Bowel Sounds - Extremities Exam Extremities exam: Positive for: pedal edema. Negative for: calf tenderness - Neurological Exam Neurological exam: Alert, CN II-XII Intact, Oriented x3 Additional comments: motor and sensory grossly intact - Psychiatric Exam Additional comments: somnolent - Skin Skin Exam: Dry, Intact Results - Vital Signs Recent Vital Signs: Last Vital Signs Temp 97.1 F L 03/29/18 12:00 Pulse 59 L 03/29/18 12:00 Resp 19 03/29/18 12:00 BP 93/66 L 03/29/18 12:00 Pulse Ox 93 L 03/29/18 06:00 - Labs Result Diagrams: 03/29/18 15:15 03/29/18 15:30 Labs: Laboratory Results - last 24 hr 03/28/18 03/28/18 03/28/18 16:10 17:32 20:17 WBC RBC Hgb Hct MCV MCH MCHC RDW Plt Count MPV Neut % (Auto) Lymph % (Auto) [place] % (Auto) Eos % (Auto) Baso % (Auto) Lymph # (Auto) [place] # (Auto) Eos # (Auto) Baso # (Auto) Absolute Neuts (auto) APTT pCO2 pO2 23 L 106 H HCO3 ABG pH ABG Total CO2 ABG O2 Saturation ABG Base Excess ABG Potassium VBG pH 7.34 7.35 VBG pCO2 40.0 34.0 L VBG HCO3 21.6 18.8 L VBG Total CO2 22.8 19.8 L VBG O2 Sat (Calc) 41.7 96.4 H VBG Base Excess -3.9 L -6.0 L VBG Potassium 5.7 H 5.0 Sodium 132.0 132.0 Chloride 99.0 100.0 Glucose 178 H 170 H Lactate 3.6 H 2.8 H FiO2 21.0 21.0 Blood Gas Comments Given to rn Crit Value Called To Janes hurtado Crit Value Called By Ec Atc Blood Gas Notified Time [id number] Potassium Carbon Dioxide Anion Gap BUN Creatinine Est GFR ( Amer) Est GFR (Non-Af Amer) POC Glucose (mg/dL) Random Glucose Hemoglobin A1c Lactic Acid Calcium Phosphorus Magnesium Total Bilirubin AST ALT Alkaline Phosphatase Ammonia 34 H Troponin I Total Protein Albumin Globulin Albumin/Globulin Ratio Free T4 TSH 3rd Generation Arterial Blood Potassium Venous Blood Potassium 5.7 H 5.0 03/29/18 03/29/18 03/29/18 02:30 06:20 06:20 WBC 7.3 RBC 4.66 Hgb 13.1 L Hct 39.8 L MCV 85.4 MCH 28.1 MCHC 32.9 RDW 17.5 H Plt Count 232 MPV 10.2 Neut % (Auto) Lymph % (Auto) [place] % (Auto) Eos % (Auto) Baso % (Auto) Lymph # (Auto) [place] # (Auto) Eos # (Auto) Baso # (Auto) Absolute Neuts (auto) APTT pCO2 pO2 55 HCO3 ABG pH ABG Total CO2 ABG O2 Saturation ABG Base Excess ABG Potassium VBG pH 7.35 VBG pCO2 32.0 L VBG HCO3 17.7 L VBG Total CO2 18.7 L VBG O2 Sat (Calc) 89.1 H VBG Base Excess -6.8 L VBG Potassium 5.1 Sodium 132.0 136 Chloride 99.0 101 Glucose 197 H Lactate 2.7 H FiO2 21.0 Blood Gas Comments Crit Value Called To Marko martins rn 2rno Crit Value Called By Jsm Blood Gas Notified Time 309 Potassium 5.3 H Carbon Dioxide 18 L Anion Gap 22 H BUN 66 H Creatinine 2.8 H Est GFR ( Amer) 27 Est GFR (Non-Af Amer) 23 POC Glucose (mg/dL) Random Glucose 195 H Hemoglobin A1c Lactic Acid Calcium 8.9 Phosphorus 5.1 H Magnesium 2.2 Total Bilirubin 1.0 AST 41 ALT 19 Alkaline Phosphatase 91 Ammonia Troponin I Total Protein 7.5 Albumin 4.1 Globulin 3.4 Albumin/Globulin Ratio 1.2 Free T4 TSH 3rd Generation Arterial Blood Potassium Venous Blood Potassium 5.1 03/29/18 03/29/18 03/29/18 07:47 08:45 09:45 WBC RBC Hgb Hct MCV MCH MCHC RDW Plt Count MPV Neut % (Auto) Lymph % (Auto) [place] % (Auto) Eos % (Auto) Baso % (Auto) Lymph # (Auto) [place] # (Auto) Eos # (Auto) Baso # (Auto) Absolute Neuts (auto) APTT pCO2 pO2 61 H HCO3 ABG pH ABG Total CO2 ABG O2 Saturation ABG Base Excess ABG Potassium VBG pH 7.29 L VBG pCO2 37.0 L VBG HCO3 17.8 L VBG Total CO2 18.9 L VBG O2 Sat (Calc) 90.4 H VBG Base Excess -8.1 L VBG Potassium 5.4 H Sodium 132.0 Chloride 99.0 Glucose 202 H Lactate 3.1 H FiO2 21.0 Blood Gas Comments Crit Value Called To Pieter Crit Value Called By Ab Blood Gas Notified Time 858 Potassium Carbon Dioxide Anion Gap BUN Creatinine Est GFR ( Amer) Est GFR (Non-Af Amer) POC Glucose (mg/dL) 218 H Random Glucose Hemoglobin A1c 8.8 H Lactic Acid Calcium Phosphorus Magnesium Total Bilirubin AST ALT Alkaline Phosphatase Ammonia Troponin I Total Protein Albumin Globulin Albumin/Globulin Ratio Free T4 TSH 3rd Generation Arterial Blood Potassium Venous Blood Potassium 5.4 H 03/29/18 03/29/18 03/29/18 10:00 11:06 12:20 WBC RBC Hgb Hct MCV MCH MCHC RDW Plt Count MPV Neut % (Auto) Lymph % (Auto) [place] % (Auto) Eos % (Auto) Baso % (Auto) Lymph # (Auto) [place] # (Auto) Eos # (Auto) Baso # (Auto) Absolute Neuts (auto) APTT pCO2 pO2 67 H HCO3 ABG pH ABG Total CO2 ABG O2 Saturation ABG Base Excess ABG Potassium VBG pH 7.30 L VBG pCO2 31.0 L VBG HCO3 15.3 L VBG Total CO2 16.3 L VBG O2 Sat (Calc) 92.4 H VBG Base Excess -9.9 L VBG Potassium 5.6 H Sodium 129.0 L Chloride 96.0 L Glucose 269 H Lactate 4.7 H* FiO2 21.0 Blood Gas Comments Crit Value Called To Michelle cooper Crit Value Called By Ab Blood Gas Notified Time 1225 Potassium Carbon Dioxide Anion Gap BUN Creatinine Est GFR ( Amer) Est GFR (Non-Af Amer) POC Glucose (mg/dL) 266 H Random Glucose Hemoglobin A1c Lactic Acid Calcium Phosphorus Magnesium Total Bilirubin AST ALT Alkaline Phosphatase Ammonia Troponin I Total Protein Albumin Globulin Albumin/Globulin Ratio Free T4 1.59 TSH 3rd Generation 4.69 H Arterial Blood Potassium Venous Blood Potassium 5.6 H 03/29/18 03/29/18 03/29/18 13:25 14:45 14:52 WBC RBC Hgb Hct MCV MCH MCHC RDW Plt Count MPV Neut % (Auto) Lymph % (Auto) [place] % (Auto) Eos % (Auto) Baso % (Auto) Lymph # (Auto) [place] # (Auto) Eos # (Auto) Baso # (Auto) Absolute Neuts (auto) APTT pCO2 23 L pO2 83.0 HCO3 8.2 L* ABG pH 7.16 L* ABG Total CO2 8.9 L ABG O2 Saturation 93.6 L ABG Base Excess -18.7 L ABG Potassium 5.3 H VBG pH VBG pCO2 VBG HCO3 VBG Total CO2 VBG O2 Sat (Calc) VBG Base Excess VBG Potassium Sodium 131.0 L Chloride 101.0 Glucose 193 H Lactate 9.8 H* FiO2 40.0 Blood Gas Comments Crit Value Called To Betty hooker rn Crit Value Called By Blood Gas Notified Time 1452 Potassium Carbon Dioxide Anion Gap BUN Creatinine Est GFR ( Amer) Est GFR (Non-Af Amer) POC Glucose (mg/dL) 250 H Random Glucose Hemoglobin A1c Lactic Acid Calcium Phosphorus Magnesium Total Bilirubin AST ALT Alkaline Phosphatase Ammonia Troponin I 0.07 Total Protein Albumin Globulin Albumin/Globulin Ratio Free T4 TSH 3rd Generation Arterial Blood Potassium 5.3 H Venous Blood Potassium 03/29/18 03/29/18 03/29/18 15:15 15:30 15:30 WBC 6.8 RBC 4.72 Hgb 13.4 L Hct 40.9 L MCV 86.7 MCH 28.4 MCHC 32.8 RDW 17.6 H Plt Count 242 MPV 9.8 Neut % (Auto) 76.0 H Lymph % (Auto) 16.7 L [place] % (Auto) 6.5 H Eos % (Auto) 0.1 L Baso % (Auto) 0.7 Lymph # (Auto) 1.1 L [place] # (Auto) 0.4 Eos # (Auto) 0.0 Baso # (Auto) 0.05 Absolute Neuts (auto) 5.12 APTT pCO2 pO2 HCO3 ABG pH ABG Total CO2 ABG O2 Saturation ABG Base Excess ABG Potassium VBG pH VBG pCO2 VBG HCO3 VBG Total CO2 VBG O2 Sat (Calc) VBG Base Excess VBG Potassium Sodium 134 Chloride 98 Glucose Lactate FiO2 Blood Gas Comments Crit Value Called To Crit Value Called By Blood Gas Notified Time Potassium 6.0 H* Carbon Dioxide 13 L Anion Gap 29 H BUN 64 H Creatinine 3.6 H Est GFR ( Amer) 20 Est GFR (Non-Af Amer) 17 POC Glucose (mg/dL) Random Glucose 197 H Hemoglobin A1c Lactic Acid 8.9 H* Calcium 8.4 Phosphorus 7.8 H Magnesium 2.5 H Total Bilirubin 1.2 AST 49 ALT 15 Alkaline Phosphatase 77 Ammonia Troponin I Total Protein 7.2 Albumin 4.0 Globulin 3.2 Albumin/Globulin Ratio 1.2 Free T4 TSH 3rd Generation Arterial Blood Potassium Venous Blood Potassium 03/29/18 15:30 WBC RBC Hgb Hct MCV MCH MCHC RDW Plt Count MPV Neut % (Auto) Lymph % (Auto) [place] % (Auto) Eos % (Auto) Baso % (Auto) Lymph # (Auto) [place] # (Auto) Eos # (Auto) Baso # (Auto) Absolute Neuts (auto) APTT 76.4 H pCO2 pO2 HCO3 ABG pH ABG Total CO2 ABG O2 Saturation ABG Base Excess ABG Potassium VBG pH VBG pCO2 VBG HCO3 VBG Total CO2 VBG O2 Sat (Calc) VBG Base Excess VBG Potassium Sodium Chloride Glucose Lactate FiO2 Blood Gas Comments Crit Value Called To Crit Value Called By Blood Gas Notified Time Potassium Carbon Dioxide Anion Gap BUN Creatinine Est GFR ( Amer) Est GFR (Non-Af Amer) POC Glucose (mg/dL) Random Glucose Hemoglobin A1c Lactic Acid Calcium Phosphorus Magnesium Total Bilirubin AST ALT Alkaline Phosphatase Ammonia Troponin I Total Protein Albumin Globulin Albumin/Globulin Ratio Free T4 TSH 3rd Generation Arterial Blood Potassium Venous Blood Potassium Assessment & Plan - Assessment and Plan (Free Text) Assessment: 72 year old male with past medical history of HTN, HLD, DM2, Gout, CAD, atrial fibrillation, CHF systolic last known EF of 35% who presented to [facility] with complaints of a 2 day history of abdominal distention, increased bilateral lower extremity swelling and increased difficulty breathing. EXTENSION PROFESSOR was called on patient for respiratory distress. Patient noted to have metabolic acidosis, elevated lactate, hypotension and supratheraputic INR. Patient brought to ICU for further management and evaluation. Plan: Neuro: -Somnolent -Monitor mentation -Maintain normothermia Cardio: Systolic CHF last known EF from this admission showing >50% -Continue lasix 40mg BID, metoprolol 50mg BID, Digoxin 0.125mg Daily, aldactone 25mg BID -Echocardiogram: EF >50%, systolic function is severely impaired, global hypokinesis of LV, no LV thrombus, RV mod dilated -Cardiology consulted with Dr. Brenner, f/u recs Atrial fibrillation on anticoagulation -Continue digoxin 0.125mg Daily -Holding AC secondary to supratheraputic INR -Follow up INR and cardio recs for continuation of AC HTN, HLD - Continue Metoprolol 50mg BID, Aldactone 25mg BID Pulm: -Abd/pelvis CT showing pleural effusions -Lasix for diuresis given -Daily CXR for evaluation -Supplemental O2, maintain SaO2 >90% -CXR: no active disease GI: Acute Ascites, Cholelithiasis -Abdomen/Pelvis CT w/o contrast: 03/28/2018: moderate pleural effusions and moderate volume of ascites, multiple gallstones, no acute findings -Lactic acid elevated 8.9, 9.8, continue to monitor lactic acid Q2H -Abdominal US for evaluation ascites -Consider paracentesis for further evaluation, holding secondary to elevated INR -IV hydration -General Surgery with Dr. Keller consulted and following Renal: Hyperkalemia, Severe Metabolic acidosis -IV insulin, sodium bicarb given -IV bicarb gtt 150mEQ in 500mL -Recheck BMP Q2H -Monitor for EKG changes -Renal US: unremarkable renal sonogram, extensive ascites Endo: DM2 -Maintian euglycemia, bg goal 140-180 -ISS, ACHS Heme: Supratheraputic INR -Vitamin K 10mg, 4 units FFP to be given -Recheck coags immediatley following FFP administration ID: -No leukocytosis, afebrile -follow up cultures GI prophylaxis DVT prophylaxis Code Status: DNR/DNI Patient case and plan discussed with attending <Kianna Guevara - Last Filed: 03/29/18 17:17> Meds - Medications Medications: Current Medications Albuterol/Ipratropium (Duoneb 3 Mg/0.5 Mg (3 Ml) Ud) 3 ml IH BIDRESP JASWANT Last Admin: 03/29/18 09:03 Dose: 3 ml Albuterol/Ipratropium (Duoneb 3 Mg/0.5 Mg (3 Ml) Ud) 3 ml IH [id number] PRN PRN Reason: Shortness of Breath Last Admin: 03/29/18 14:30 Dose: 3 ml Digoxin (Digoxin) 0.125 mg PO 1400 JASWANT Last Admin: 03/29/18 15:44 Dose: Not Given Famotidine (Pepcid) 20 mg PO DAILY [facility] Furosemide (Lasix) 40 mg IVP Q12 JASWANT Last Admin: 03/29/18 09:29 Dose: 40 mg Gabapentin (Neurontin) 600 mg PO BID JASWANT; Protocol Last Admin: 03/29/18 09:29 Dose: 600 mg NOREPINEPHRINE BIT/0.9 % NACL (Levophed 4 Mg/ 250 Ml Ns Premixed) 4 mg in 250 mls @ 15 mls/hr IV .[id number] PRN; Protocol PRN Reason: TITRATE PER MD ORDER Dextrose/Sodium Chloride (Dextrose 5%/0.9% Ns 1000 Ml) 1,000 mls @ 100 mls/hr IV .Q10H [facility] Sodium Bicarbonate 150 meq/ (Sodium Chloride) 650 mls @ 100 mls/hr IV .Q6H30M [facility] Insulin Human Lispro (Humalog Low) 0 units SC ACHS [facility]; Protocol Last Admin: 03/29/18 13:31 Dose: 3 units Metoprolol Tartrate (Lopressor) 50 mg PO BRKDIN [facility] Mupirocin (Bactroban Ointment) 0 gm TOP BID [facility] Spironolactone (Aldactone) 25 mg PO BID [facility] Last Admin: 03/29/18 09:29 Dose: 25 mg Results - Vital Signs Recent Vital Signs: Last Vital Signs Temp 97.1 F L 03/29/18 12:00 Pulse 59 L 03/29/18 12:00 Resp 19 03/29/18 12:00 BP 93/66 L 03/29/18 12:00 Pulse Ox 93 L 03/29/18 06:00 - Labs Result Diagrams: 03/29/18 15:15 03/29/18 15:30 Labs: Laboratory Results - last 24 hr 03/28/18 03/28/18 03/29/18 17:32 20:17 02:30 WBC RBC Hgb Hct MCV MCH MCHC RDW Plt Count MPV Neut % (Auto) Lymph % (Auto) [place] % (Auto) Eos % (Auto) Baso % (Auto) Lymph # (Auto) [place] # (Auto) Eos # (Auto) Baso # (Auto) Absolute Neuts (auto) PT INR APTT pCO2 pO2 106 H 55 HCO3 ABG pH ABG Total CO2 ABG O2 Saturation ABG Base Excess ABG Potassium VBG pH 7.35 7.35 VBG pCO2 34.0 L 32.0 L VBG HCO3 18.8 L 17.7 L VBG Total CO2 19.8 L 18.7 L VBG O2 Sat (Calc) 96.4 H 89.1 H VBG Base Excess -6.0 L -6.8 L VBG Potassium 5.0 5.1 Sodium 132.0 132.0 Chloride 100.0 99.0 Glucose 170 H 197 H Lactate 2.8 H 2.7 H FiO2 21.0 21.0 Crit Value Called To Miguel Angel martins rn 2rno Crit Value Called By Atc Jsm Blood Gas Notified Time 2019 309 Potassium Carbon Dioxide Anion Gap BUN Creatinine Est GFR ( Amer) Est GFR (Non-Af Amer) POC Glucose (mg/dL) Random Glucose Hemoglobin A1c Lactic Acid Calcium Phosphorus Magnesium Total Bilirubin AST ALT Alkaline Phosphatase Ammonia 34 H Lactate Dehydrogenase Total Creatine Kinase Troponin I Total Protein Albumin Globulin Albumin/Globulin Ratio Free T4 TSH 3rd Generation Arterial Blood Potassium Venous Blood Potassium 5.0 5.1 Urine Color Urine Appearance Urine pH Ur Specific [place] Urine Protein Urine Glucose (UA) Urine Ketones Urine Blood Urine Nitrate Urine Bilirubin Urine Urobilinogen Ur Leukocyte Esterase 03/29/18 03/29/18 03/29/18 06:20 06:20 07:47 WBC 7.3 RBC 4.66 Hgb 13.1 L Hct 39.8 L MCV 85.4 MCH 28.1 MCHC 32.9 RDW 17.5 H Plt Count 232 MPV 10.2 Neut % (Auto) Lymph % (Auto) [place] % (Auto) Eos % (Auto) Baso % (Auto) Lymph # (Auto) [place] # (Auto) Eos # (Auto) Baso # (Auto) Absolute Neuts (auto) PT INR APTT pCO2 pO2 HCO3 ABG pH ABG Total CO2 ABG O2 Saturation ABG Base Excess ABG Potassium VBG pH VBG pCO2 VBG HCO3 VBG Total CO2 VBG O2 Sat (Calc) VBG Base Excess VBG Potassium Sodium 136 Chloride 101 Glucose Lactate FiO2 Crit Value Called To Crit Value Called By Blood Gas Notified Time Potassium 5.3 H Carbon Dioxide 18 L Anion Gap 22 H BUN 66 H Creatinine 2.8 H Est GFR ( Amer) 27 Est GFR (Non-Af Amer) 23 POC Glucose (mg/dL) 218 H Random Glucose 195 H Hemoglobin A1c Lactic Acid Calcium 8.9 Phosphorus 5.1 H Magnesium 2.2 Total Bilirubin 1.0 AST 41 ALT 19 Alkaline Phosphatase 91 Ammonia Lactate Dehydrogenase Total Creatine Kinase Troponin I Total Protein 7.5 Albumin 4.1 Globulin 3.4 Albumin/Globulin Ratio 1.2 Free T4 TSH 3rd Generation Arterial Blood Potassium Venous Blood Potassium Urine Color Urine Appearance Urine pH Ur Specific [place] Urine Protein Urine Glucose (UA) Urine Ketones Urine Blood Urine Nitrate Urine Bilirubin Urine Urobilinogen Ur Leukocyte Esterase 03/29/18 03/29/18 03/29/18 08:45 09:45 10:00 WBC RBC Hgb Hct MCV MCH MCHC RDW Plt Count MPV Neut % (Auto) Lymph % (Auto) [place] % (Auto) Eos % (Auto) Baso % (Auto) Lymph # (Auto) [place] # (Auto) Eos # (Auto) Baso # (Auto) Absolute Neuts (auto) PT INR APTT pCO2 pO2 61 H HCO3 ABG pH ABG Total CO2 ABG O2 Saturation ABG Base Excess ABG Potassium VBG pH 7.29 L VBG pCO2 37.0 L VBG HCO3 17.8 L VBG Total CO2 18.9 L VBG O2 Sat (Calc) 90.4 H VBG Base Excess -8.1 L VBG Potassium 5.4 H Sodium 132.0 Chloride 99.0 Glucose 202 H Lactate 3.1 H FiO2 21.0 Crit Value Called To Pieter Crit Value Called By Ab Blood Gas Notified Time 858 Potassium Carbon Dioxide Anion Gap BUN Creatinine Est GFR ( Amer) Est GFR (Non-Af Amer) POC Glucose (mg/dL) Random Glucose Hemoglobin A1c 8.8 H Lactic Acid Calcium Phosphorus Magnesium Total Bilirubin AST ALT Alkaline Phosphatase Ammonia Lactate Dehydrogenase Total Creatine Kinase Troponin I Total Protein Albumin Globulin Albumin/Globulin Ratio Free T4 1.59 TSH 3rd Generation 4.69 H Arterial Blood Potassium Venous Blood Potassium 5.4 H Urine Color Urine Appearance Urine pH Ur Specific [place] Urine Protein Urine Glucose (UA) Urine Ketones Urine Blood Urine Nitrate Urine Bilirubin Urine Urobilinogen Ur Leukocyte Esterase 03/29/18 03/29/18 03/29/18 11:06 12:20 13:25 WBC RBC Hgb Hct MCV MCH MCHC RDW Plt Count MPV Neut % (Auto) Lymph % (Auto) [place] % (Auto) Eos % (Auto) Baso % (Auto) Lymph # (Auto) [place] # (Auto) Eos # (Auto) Baso # (Auto) Absolute Neuts (auto) PT INR APTT pCO2 pO2 67 H HCO3 ABG pH ABG Total CO2 ABG O2 Saturation ABG Base Excess ABG Potassium VBG pH 7.30 L VBG pCO2 31.0 L VBG HCO3 15.3 L VBG Total CO2 16.3 L VBG O2 Sat (Calc) 92.4 H VBG Base Excess -9.9 L VBG Potassium 5.6 H Sodium 129.0 L Chloride 96.0 L Glucose 269 H Lactate 4.7 H* FiO2 21.0 Crit Value Called To Michelle cooper Crit Value Called By Ab Blood Gas Notified Time 1225 Potassium Carbon Dioxide Anion Gap BUN Creatinine Est GFR ( Amer) Est GFR (Non-Af Amer) POC Glucose (mg/dL) 266 H Random Glucose Hemoglobin A1c Lactic Acid Calcium Phosphorus Magnesium Total Bilirubin AST ALT Alkaline Phosphatase Ammonia Lactate Dehydrogenase Total Creatine Kinase Troponin I 0.07 Total Protein Albumin Globulin Albumin/Globulin Ratio Free T4 TSH 3rd Generation Arterial Blood Potassium Venous Blood Potassium 5.6 H Urine Color Urine Appearance Urine pH Ur Specific [place] Urine Protein Urine Glucose (UA) Urine Ketones Urine Blood Urine Nitrate Urine Bilirubin Urine Urobilinogen Ur Leukocyte Esterase 03/29/18 03/29/18 03/29/18 14:45 14:52 15:15 WBC 6.8 RBC 4.72 Hgb 13.4 L Hct 40.9 L MCV 86.7 MCH 28.4 MCHC 32.8 RDW 17.6 H Plt Count 242 MPV 9.8 Neut % (Auto) 76.0 H Lymph % (Auto) 16.7 L [place] % (Auto) 6.5 H Eos % (Auto) 0.1 L Baso % (Auto) 0.7 Lymph # (Auto) 1.1 L [place] # (Auto) 0.4 Eos # (Auto) 0.0 Baso # (Auto) 0.05 Absolute Neuts (auto) 5.12 PT INR APTT pCO2 23 L pO2 83.0 HCO3 8.2 L* ABG pH 7.16 L* ABG Total CO2 8.9 L ABG O2 Saturation 93.6 L ABG Base Excess -18.7 L ABG Potassium 5.3 H VBG pH VBG pCO2 VBG HCO3 VBG Total CO2 VBG O2 Sat (Calc) VBG Base Excess VBG Potassium Sodium 131.0 L Chloride 101.0 Glucose 193 H Lactate 9.8 H* FiO2 40.0 Crit Value Called To Betty hooker rn Crit Value Called By Blood Gas Notified Time 1452 Potassium Carbon Dioxide Anion Gap BUN Creatinine Est GFR ( Amer) Est GFR (Non-Af Amer) POC Glucose (mg/dL) 250 H Random Glucose Hemoglobin A1c Lactic Acid Calcium Phosphorus Magnesium Total Bilirubin AST ALT Alkaline Phosphatase Ammonia Lactate Dehydrogenase Total Creatine Kinase Troponin I Total Protein Albumin Globulin Albumin/Globulin Ratio Free T4 TSH 3rd Generation Arterial Blood Potassium 5.3 H Venous Blood Potassium Urine Color Urine Appearance Urine pH Ur Specific [place] Urine Protein Urine Glucose (UA) Urine Ketones Urine Blood Urine Nitrate Urine Bilirubin Urine Urobilinogen Ur Leukocyte Esterase 03/29/18 03/29/18 03/29/18 15:30 15:30 15:30 WBC RBC Hgb Hct MCV MCH MCHC RDW Plt Count MPV Neut % (Auto) Lymph % (Auto) [place] % (Auto) Eos % (Auto) Baso % (Auto) Lymph # (Auto) [place] # (Auto) Eos # (Auto) Baso # (Auto) Absolute Neuts (auto) PT 158.9 H INR 14.32 H* APTT 76.4 H pCO2 pO2 HCO3 ABG pH ABG Total CO2 ABG O2 Saturation ABG Base Excess ABG Potassium VBG pH VBG pCO2 VBG HCO3 VBG Total CO2 VBG O2 Sat (Calc) VBG Base Excess VBG Potassium Sodium 134 Chloride 98 Glucose Lactate FiO2 Crit Value Called To Crit Value Called By Blood Gas Notified Time Potassium 6.0 H* Carbon Dioxide 13 L Anion Gap 29 H BUN 64 H Creatinine 3.6 H Est GFR ( Amer) 20 Est GFR (Non-Af Amer) 17 POC Glucose (mg/dL) Random Glucose 197 H Hemoglobin A1c Lactic Acid 8.9 H* Calcium 8.4 Phosphorus 7.8 H Magnesium 2.5 H Total Bilirubin 1.2 AST 49 ALT 15 Alkaline Phosphatase 77 Ammonia Lactate Dehydrogenase Total Creatine Kinase Troponin I Total Protein 7.2 Albumin 4.0 Globulin 3.2 Albumin/Globulin Ratio 1.2 Free T4 TSH 3rd Generation Arterial Blood Potassium Venous Blood Potassium Urine Color Urine Appearance Urine pH Ur Specific [place] Urine Protein Urine Glucose (UA) Urine Ketones Urine Blood Urine Nitrate Urine Bilirubin Urine Urobilinogen Ur Leukocyte Esterase 03/29/18 03/29/18 15:40 16:27 WBC RBC Hgb Hct MCV MCH MCHC RDW Plt Count MPV Neut % (Auto) Lymph % (Auto) [place] % (Auto) Eos % (Auto) Baso % (Auto) Lymph # (Auto) [place] # (Auto) Eos # (Auto) Baso # (Auto) Absolute Neuts (auto) PT INR APTT pCO2 pO2 HCO3 ABG pH ABG Total CO2 ABG O2 Saturation ABG Base Excess ABG Potassium VBG pH VBG pCO2 VBG HCO3 VBG Total CO2 VBG O2 Sat (Calc) VBG Base Excess VBG Potassium Sodium Chloride Glucose Lactate FiO2 Crit Value Called To Crit Value Called By Blood Gas Notified Time Potassium Carbon Dioxide Anion Gap BUN Creatinine Est GFR ( Amer) Est GFR (Non-Af Amer) POC Glucose (mg/dL) Random Glucose Hemoglobin A1c Lactic Acid Calcium Phosphorus Magnesium Total Bilirubin AST ALT Alkaline Phosphatase Ammonia Lactate Dehydrogenase 524 Total Creatine Kinase 181 Troponin I Total Protein Albumin Globulin Albumin/Globulin Ratio Free T4 TSH 3rd Generation Arterial Blood Potassium Venous Blood Potassium Urine Color Yellow Urine Appearance Clear Urine pH 5.5 Ur Specific [place] >= 1.030 Urine Protein Negative Urine Glucose (UA) Negative Urine Ketones Negative Urine Blood Negative Urine Nitrate Negative Urine Bilirubin Negative Urine Urobilinogen 0.2 Ur Leukocyte Esterase Negative Addendum Addendum: 03/29/18 17:11 ICU Attending Addendum Patient seen and examined. Case reviewed on round with housestaff. Agree with resident note above with the following additions/exceptions 72M with HTN, HLD, DM2, Gout, CAD, atrial fibrillation on warfarin, CHF systolic admitted yesterday with abdominal distention and bilateral lower extremity swelling x 2 two days. Reports difficulty urinating and difficulty breathing secondary to abdominal distention. Patient denies any fevers, chills, headache, dizziness, chest pain, dyspnea on exertion, He was being managed on the floors with diursesis as well as for his fib rvr with cardizem drip which was transitioned to PO today. Rapid Resp called approx 3pm for hypontesion patient fround ot have bp 84/52 HR 55 c/o abd pain. Labs remarkable for severe metabolic acidosis with worsening renal failure and hyperK. Unclear why his lac is rising so quickly over 2 hours. He has no leukocysotis or fever so less favoring sepsis. Ischemic bowel is possible to cause an acute change, afib is a risk factor. Awaiting coags. RTA is also possible however i would have expected his lac to be elevated on admission as well. I suspect he may be intravsc depleted. His low BP state may also have causes hypoperfusion to watershed areas of the bowel; For now will hydrate with 500c bolus and bicarb drip levophed goal MAP > 65 will need TLC monitor I/O calcium, glucose, insulin for K repeat chem in 2 hours as well as ABG with lac trend TNI may need paracentesis send urine culture f/u coags f/u nephro recs f/u surg recs for possible ishemic bowel Rest of care as above Kianna Guevara MD Pulmonary Critical Care Attending Critical Care Time: 45 mins Addendum: INR just came back as 14 Patient at high risk for bleeding Dr. Holt holding off on HD for now thus it would be high risk to empirically insert HD catheter especially for an intervention he may not recevie He is on levophe @ 4mcg right now via 18 guage peripheral IV; will cont peripheral levo as he seems to be holding his pressure with 4mcg given the high risk of bleeding with INR 14 give 4 units FFP and vit k 10 to reverse INR once INR comes down, team will re-evaluate if he needs TLC or HD catherter and if so he will have it placed then this will be signed out to the night team In addition, patient stated he does not want to have CPR done and he would not want to be intubted his financial PO[facility] at [facility] who says he has had these discussions with him in the past and he has clearly stated he does not want CPR or a ventilator Patient is also unsure if he would want dialysis intermediate frame tender For now Cont levophed peripehral give 4 unit FFP repeat coags re-asssess need to TLC or HD cather based on pressors requiements and chem/k/acidosis code status DNR/ DNI Kianna Guevara MD MICU Attending
--- NOTE | 2018-03-29 16:08 | PCM.RRT ---
<Bhaskar Wilson - Last Filed: 03/29/18 17:53> [employer] Nurse Assessment - Situation Date: 03/29/18 I.Reason for [employer] - A) Acute Change in Patient: (Select all that apply): Acute change in mental status - Neurological Status (Select all that apply): Alert, Responsive, Verbal - Respiratory Oxygen Delivery Method: Non Rebreather @% (15L) - Constitutional Appears: In Acute Distress - Head Head Exam: NORMAL INSPECTION, NORMOCEPHALIC - Eyes Eye Exam: EOMI, Normal appearance - Respiratory Exam Respiratory Exam: Respiratory Distress Additional comments: tachypneic - Cardiovascular Exam Cardiovascular Exam: Irregular Rhythm, +S1, +S2 - GI/Abdominal Exam GI & Abdominal Exam: Distended. absent: Guarding, Rigid - Neurological Exam Neurological Exam: Alert, Awake, Oriented x3 - Extremities Exam Extremities Exam: Pedal Edema Plan - Assessment of Findings&Treatment Plan [employer] called as patient had acute change in clinical status with respiratory distress, SOB, tachypnea, restlessness. Vitals upon arrival were: BP 132/112, 98% non-rebreather @15L, HR 50s-60s. Heart exam was irregular rhythm, lungs revealed crackles in L lung base. ABG was performed revealing 7.16/23/83/18. Lactate was found to be elevated at 9.8. Pt was initiated on treatment for septic shock per protocol. 1L NS IVF bolus was administered, with goal of 30ml/kg. Administered 1 amp bicarbonate. Empiric vancomycin and meropenem were ordered. Blood pressure was noted to drop to 86/50. Levophed drip was initiated at 4mcg/kg and was titrated up to 5mcg/kg to maintain at MAP>65. Strap Cutter was notified and evaluated patient. Pt accepted to ICU. Stat labs/imaging were ordered including CBC/CMP/Mg/Phos/ABG w/shock panel/serum lactic acid/LDH/coags. Chest xray was repeated revealing vascular congestion with small L sided pleural effusion. CT head/chest/abdomen/pelvis without contrast were ordered. Surgery consulted for concern of ischemic bowel Pt hemodynamically stable, on levophed drip, will be transferred to ICU. <Dawson Fonseca - Last Filed: 03/31/18 15:26> [employer] Nurse Assessment - Vital Signs Vital Sign: Rapid Response Vital Sign Blood Pressure 132/112 Pulse Rate 54 Respiratory Rate 26 Temperature 96 F Oxygen Saturation 92 - Vital Signs at end of [employer] Vital Signs at end of [employer]: Rapid Response End Vital Sign Blood Pressure 83/47 Pulse Rate 56 Respiratory Rate 19 Temperature 96 F O2 Sat by Pulse Oximetry 94 Attending/Attestation - Attestation I have personally seen and examined this patient.: Yes I have fully participated in the care of the patient.: Yes I have reviewed all pertinent clinical information, including history, physical exam and plan: Yes Notes (Text): 03/31/18 15:19 Attending note; Patient seen and examined with resident during [employer]. Patient is in respiratory distress. Started on oxygen. Patient is a 72-year-old with a history of chronic alcohol abuse, alcohol cirrhosis, chronic kidney disease, anemia, Afib, systolic CHF, HTN, HLD, DM2, Gout, CAD s/p CABG, AICD, toe amputations on the right leg presented with b/l LE swelling and abdominal distention worsening over 2 days. Patient acutely deteriorated with shortness of breath. VBG showed significant lactic acidosis. Patient had episodes of hypotension. Possible etiologies include sepsis, hypoperfusion secondary to hypotension, arrhythmia, possible bowel ischemia. Patient also has poor lactic acid clearance secondary to liver failure and renal failure. Patient is currently alert. Placed on oxygen. IV bicarbonate 2 given. Started on IV vancomycin 1 dose and meropenem ordered. Patient became hypotensive. Started on normal saline and Levophed. ABG showed severe metabolic acidosis with acute compensatory respiratory alkalosis. Patient was seen and examined with ICU attending. Patient will be transferred to ICU. Stat blood work including CBC, CMP, PT, INR, ABG ordered. Case discussed with PMD in detail. Further Per PMD and ICU attending. Prognosis is poor secondary to multiple medical issues. Time spent over 50 minutes. Addendum patient had significantly elevated INR. Patient is getting FFP and vitamin K. Patient has hyperkalemia getting treated with IV insulin/dextrose and Kayexalate. Patient was made DNI and DNR as per his wishes. 03/31/18 15:26
[2018-03-29 16:23] LABS: PROTHROMBIN TIME 158.9 SECONDS (9.4-12.5)
[2018-03-29 16:25] LABS: INR 14.32
--- NOTE | 2018-03-29 16:27 | RAD ---
Date of service: 03/29/2018 HISTORY: ams COMPARISON: 03/28/2018 FINDINGS: LUNGS: No active pulmonary disease. PLEURA: No significant pleural effusion identified, no pneumothorax apparent. CARDIOVASCULAR: Aortic calcification Mild cardiomegaly moderate vascular congestion right greater than left OSSEOUS STRUCTURES: No significant abnormalities. VISUALIZED UPPER ABDOMEN: Normal. OTHER FINDINGS: Single lead pacemaker IMPRESSION: Mild cardiomegaly moderate vascular congestion right greater than left
[2018-03-29 16:36] LABS: PH,URINE 5.5 (4.7-8.0); URINE BILIRUBIN NEGATIVE (NEGATIVE); URINE BLOOD NEGATIVE (NEGATIVE); URINE GLUCOSE (UA) NEGATIVE (NEGATIVE); URINE LEUKOCYTE ESTERASE NEGATIVE Leu/uL (NEGATIVE); URINE PROTEIN NEGATIVE mg/dL (<30 mg/dL); URINE UROBILINOGEN 0.2 E.U./dL (<1 E.U./dL)
[2018-03-29 16:37] LABS: URINE APPEARANCE CLEAR (CLEAR); URINE COLOR YELLOW (YELLOW)
[2018-03-29] MEDS ORDERED: Phytonadione 10 MG in Sodium Chloride 0.9% 50 ML IV ONE (16:37)
--- NOTE | 2018-03-29 16:40 | CP.PCM.CON ---
<Archie Cabrera - Last Filed: 03/29/18 16:34> History of Present Illness - History of Present Illness History of Present Illness: Podiatry consult note for Dr. Ordonez 71 y/o male with PMHx of CAD, atrial fibrillation, systolic CHF, HTN, HLD, DM type II, gout seen at bedside in ICU for wound to the right TMA site. Pt sees Dr. George on a regular basis for diabetic foot care, elongated left foot toenails, and non-healing, small wound to the right TMA site. Patient denies any pain to his feet at this time. Admits to occasional mild tingling in the lower extremities. Denies numbness or burning. Denies F/C/N/V/CP/SOB. Review of Systems - Review of Systems All systems: reviewed and no additional remarkable complaints except Review of Systems: As per HPI Past Patient History - Infectious Disease Hx of Infectious Diseases: None - Tetanus Immunizations Tetanus Immunization: Unknown - Past Social History Smoking Status: Heavy Smoker > 10 Cigarettes Daily - CARDIAC Hx Cardia Arrhythmia: Yes (Afib) Hx Congestive Heart Failure: Yes Hx Hypercholesterolemia: Yes Hx Hypertension: Yes Hx Internal Defibrillator: Yes Hx Pacemaker: Yes (PPM) - PULMONARY Hx Asthma: Yes Hx Emphysema: Yes - NEUROLOGICAL Hx Seizures: Yes - HEENT Hx HEENT Problems: Yes (GLASSES) - RENAL Hx Chronic Kidney Disease: No - ENDOCRINE/METABOLIC Hx Diabetes Mellitus Type 2: Yes - HEMATOLOGICAL/ONCOLOGICAL Hx Cancer: Yes (Lung, Bladder) Hx Chemotherapy: Yes - INTEGUMENTARY Hx Dermatological Problems: No - MUSCULOSKELETAL/RHEUMATOLOGICAL Hx Falls: No Hx Gout: Yes - GASTROINTESTINAL Hx Gastrointestinal Disorders: Yes (POOR APPETITE) - GENITOURINARY/GYNECOLOGICAL Hx Genitourinary Disorders: No - PSYCHIATRIC Hx Substance Use: No - SURGICAL HISTORY Hx Open Heart Surgery: Yes (CABG) - ANESTHESIA Hx Anesthesia: Yes Hx Anesthesia Reactions: No Hx Malignant Hyperthermia: No Meds Allergies/Adverse Reactions: Allergies Allergy/AdvReac Type Severity Reaction Status Date / Time No Known Allergies Allergy Verified 09/02/17 15:44 - Medications Medications: Current Medications Albuterol/Ipratropium (Duoneb 3 Mg/0.5 Mg (3 Ml) Ud) 3 ml IH BIDRESP JASWANT Last Admin: 03/29/18 09:03 Dose: 3 ml Albuterol/Ipratropium (Duoneb 3 Mg/0.5 Mg (3 Ml) Ud) 3 ml IH [id number] PRN PRN Reason: Shortness of Breath Last Admin: 03/29/18 14:30 Dose: 3 ml Digoxin (Digoxin) 0.125 mg PO 1400 JASWANT Last Admin: 03/29/18 15:44 Dose: Not Given Famotidine (Pepcid) 20 mg PO DAILY [facility] Furosemide (Lasix) 40 mg IVP Q12 [facility] Last Admin: 03/29/18 09:29 Dose: 40 mg Gabapentin (Neurontin) 600 mg PO BID JASWANT; Protocol Last Admin: 03/29/18 09:29 Dose: 600 mg NOREPINEPHRINE BIT/0.9 % NACL (Levophed 4 Mg/ 250 Ml Ns Premixed) 4 mg in 250 mls @ 15 mls/hr IV .[id number] PRN; Protocol PRN Reason: TITRATE PER MD ORDER Dextrose/Sodium Chloride (Dextrose 5%/0.9% Ns 1000 Ml) 1,000 mls @ 100 mls/hr IV .Q10H JASWANT Calcium Gluconate 1,000 mg/ (Dextrose) 110 mls @ 110 mls/hr IVPB ONCE ONE Stop: 03/29/18 16:59 Insulin Human Lispro (Humalog Low) 0 units SC ACHS [facility]; Protocol Last Admin: 03/29/18 13:31 Dose: 3 units Metoprolol Tartrate (Lopressor) 50 mg PO BRKDIN [facility] Spironolactone (Aldactone) 25 mg PO BID [facility] Last Admin: 03/29/18 09:29 Dose: 25 mg Physical Exam - Constitutional Appears: Well, Non-toxic, No Acute Distress - Head Exam Head Exam: ATRAUMATIC, NORMOCEPHALIC - Eye Exam Eye Exam: Normal appearance - Extremities Exam Additional comments: VASC: DP and PT 2/4 bilaterally, CFT less than 3 seconds X 5 on the left, no e corinna, TG within normal limits DERM: small 0.5 cm longitudinal fissure noted to the TMA site, minimal sanguinous drainage, no malodor, no signs of infection, no erythema, does not probe to bone NEURO: grossly intact ORTHO: no pain on palpation, no pain with range of motion, right TMA from many years ago - Neurological Exam Neurological exam: Alert, Oriented x3 - Psychiatric Exam Psychiatric exam: Normal Affect, Normal Mood Results - Vital Signs Recent Vital Signs: Last Vital Signs Temp 97.1 F L 03/29/18 12:00 Pulse 59 L 03/29/18 12:00 Resp 19 03/29/18 12:00 BP 93/66 L 03/29/18 12:00 Pulse Ox 93 L 03/29/18 06:00 - Labs Result Diagrams: 03/29/18 15:15 03/29/18 15:30 Labs: Laboratory Results - last 24 hr 03/28/18 03/28/18 03/29/18 17:32 20:17 02:30 WBC RBC Hgb Hct MCV MCH MCHC RDW Plt Count MPV Neut % (Auto) Lymph % (Auto) [place] % (Auto) Eos % (Auto) Baso % (Auto) Lymph # (Auto) [place] # (Auto) Eos # (Auto) Baso # (Auto) Absolute Neuts (auto) PT INR APTT pCO2 pO2 106 H 55 HCO3 ABG pH ABG Total CO2 ABG O2 Saturation ABG Base Excess ABG Potassium VBG pH 7.35 7.35 VBG pCO2 34.0 L 32.0 L VBG HCO3 18.8 L 17.7 L VBG Total CO2 19.8 L 18.7 L VBG O2 Sat (Calc) 96.4 H 89.1 H VBG Base Excess -6.0 L -6.8 L VBG Potassium 5.0 5.1 Sodium 132.0 132.0 Chloride 100.0 99.0 Glucose 170 H 197 H Lactate 2.8 H 2.7 H FiO2 21.0 21.0 Crit Value Called To Miguel Angel martins rn 2rno Crit Value Called By Atc Jsm Blood Gas Notified Time 2019 309 Potassium Carbon Dioxide Anion Gap BUN Creatinine Est GFR ( Amer) Est GFR (Non-Af Amer) POC Glucose (mg/dL) Random Glucose Hemoglobin A1c Lactic Acid Calcium Phosphorus Magnesium Total Bilirubin AST ALT Alkaline Phosphatase Ammonia 34 H Lactate Dehydrogenase Total Creatine Kinase Troponin I Total Protein Albumin Globulin Albumin/Globulin Ratio Free T4 TSH 3rd Generation Arterial Blood Potassium Venous Blood Potassium 5.0 5.1 03/29/18 03/29/18 03/29/18 06:20 06:20 07:47 WBC 7.3 RBC 4.66 Hgb 13.1 L Hct 39.8 L MCV 85.4 MCH 28.1 MCHC 32.9 RDW 17.5 H Plt Count 232 MPV 10.2 Neut % (Auto) Lymph % (Auto) [place] % (Auto) Eos % (Auto) Baso % (Auto) Lymph # (Auto) [place] # (Auto) Eos # (Auto) Baso # (Auto) Absolute Neuts (auto) PT INR APTT pCO2 pO2 HCO3 ABG pH ABG Total CO2 ABG O2 Saturation ABG Base Excess ABG Potassium VBG pH VBG pCO2 VBG HCO3 VBG Total CO2 VBG O2 Sat (Calc) VBG Base Excess VBG Potassium Sodium 136 Chloride 101 Glucose Lactate FiO2 Crit Value Called To Crit Value Called By Blood Gas Notified Time Potassium 5.3 H Carbon Dioxide 18 L Anion Gap 22 H BUN 66 H Creatinine 2.8 H Est GFR ( Amer) 27 Est GFR (Non-Af Amer) 23 POC Glucose (mg/dL) 218 H Random Glucose 195 H Hemoglobin A1c Lactic Acid Calcium 8.9 Phosphorus 5.1 H Magnesium 2.2 Total Bilirubin 1.0 AST 41 ALT 19 Alkaline Phosphatase 91 Ammonia Lactate Dehydrogenase Total Creatine Kinase Troponin I Total Protein 7.5 Albumin 4.1 Globulin 3.4 Albumin/Globulin Ratio 1.2 Free T4 TSH 3rd Generation Arterial Blood Potassium Venous Blood Potassium 03/29/18 03/29/18 03/29/18 08:45 09:45 10:00 WBC RBC Hgb Hct MCV MCH MCHC RDW Plt Count MPV Neut % (Auto) Lymph % (Auto) [place] % (Auto) Eos % (Auto) Baso % (Auto) Lymph # (Auto) [place] # (Auto) Eos # (Auto) Baso # (Auto) Absolute Neuts (auto) PT INR APTT pCO2 pO2 61 H HCO3 ABG pH ABG Total CO2 ABG O2 Saturation ABG Base Excess ABG Potassium VBG pH 7.29 L VBG pCO2 37.0 L VBG HCO3 17.8 L VBG Total CO2 18.9 L VBG O2 Sat (Calc) 90.4 H VBG Base Excess -8.1 L VBG Potassium 5.4 H Sodium 132.0 Chloride 99.0 Glucose 202 H Lactate 3.1 H FiO2 21.0 Crit Value Called To Pieter Crit Value Called By Ab Blood Gas Notified Time 858 Potassium Carbon Dioxide Anion Gap BUN Creatinine Est GFR ( Amer) Est GFR (Non-Af Amer) POC Glucose (mg/dL) Random Glucose Hemoglobin A1c 8.8 H Lactic Acid Calcium Phosphorus Magnesium Total Bilirubin AST ALT Alkaline Phosphatase Ammonia Lactate Dehydrogenase Total Creatine Kinase Troponin I Total Protein Albumin Globulin Albumin/Globulin Ratio Free T4 1.59 TSH 3rd Generation 4.69 H Arterial Blood Potassium Venous Blood Potassium 5.4 H 03/29/18 03/29/18 03/29/18 11:06 12:20 13:25 WBC RBC Hgb Hct MCV MCH MCHC RDW Plt Count MPV Neut % (Auto) Lymph % (Auto) [place] % (Auto) Eos % (Auto) Baso % (Auto) Lymph # (Auto) [place] # (Auto) Eos # (Auto) Baso # (Auto) Absolute Neuts (auto) PT INR APTT pCO2 pO2 67 H HCO3 ABG pH ABG Total CO2 ABG O2 Saturation ABG Base Excess ABG Potassium VBG pH 7.30 L VBG pCO2 31.0 L VBG HCO3 15.3 L VBG Total CO2 16.3 L VBG O2 Sat (Calc) 92.4 H VBG Base Excess -9.9 L VBG Potassium 5.6 H Sodium 129.0 L Chloride 96.0 L Glucose 269 H Lactate 4.7 H* FiO2 21.0 Crit Value Called To Michelle cooper Crit Value Called By Ab Blood Gas Notified Time 1225 Potassium Carbon Dioxide Anion Gap BUN Creatinine Est GFR ( Amer) Est GFR (Non-Af Amer) POC Glucose (mg/dL) 266 H Random Glucose Hemoglobin A1c Lactic Acid Calcium Phosphorus Magnesium Total Bilirubin AST ALT Alkaline Phosphatase Ammonia Lactate Dehydrogenase Total Creatine Kinase Troponin I 0.07 Total Protein Albumin Globulin Albumin/Globulin Ratio Free T4 TSH 3rd Generation Arterial Blood Potassium Venous Blood Potassium 5.6 H 03/29/18 03/29/18 03/29/18 14:45 14:52 15:15 WBC 6.8 RBC 4.72 Hgb 13.4 L Hct 40.9 L MCV 86.7 MCH 28.4 MCHC 32.8 RDW 17.6 H Plt Count 242 MPV 9.8 Neut % (Auto) 76.0 H Lymph % (Auto) 16.7 L [place] % (Auto) 6.5 H Eos % (Auto) 0.1 L Baso % (Auto) 0.7 Lymph # (Auto) 1.1 L [place] # (Auto) 0.4 Eos # (Auto) 0.0 Baso # (Auto) 0.05 Absolute Neuts (auto) 5.12 PT INR APTT pCO2 23 L pO2 83.0 HCO3 8.2 L* ABG pH 7.16 L* ABG Total CO2 8.9 L ABG O2 Saturation 93.6 L ABG Base Excess -18.7 L ABG Potassium 5.3 H VBG pH VBG pCO2 VBG HCO3 VBG Total CO2 VBG O2 Sat (Calc) VBG Base Excess VBG Potassium Sodium 131.0 L Chloride 101.0 Glucose 193 H Lactate 9.8 H* FiO2 40.0 Crit Value Called To Betty hooker rn Crit Value Called By Ss Blood Gas Notified Time 1452 Potassium Carbon Dioxide Anion Gap BUN Creatinine Est GFR ( Amer) Est GFR (Non-Af Amer) POC Glucose (mg/dL) 250 H Random Glucose Hemoglobin A1c Lactic Acid Calcium Phosphorus Magnesium Total Bilirubin AST ALT Alkaline Phosphatase Ammonia Lactate Dehydrogenase Total Creatine Kinase Troponin I Total Protein Albumin Globulin Albumin/Globulin Ratio Free T4 TSH 3rd Generation Arterial Blood Potassium 5.3 H Venous Blood Potassium 03/29/18 03/29/18 03/29/18 15:30 15:30 15:30 WBC RBC Hgb Hct MCV MCH MCHC RDW Plt Count MPV Neut % (Auto) Lymph % (Auto) [place] % (Auto) Eos % (Auto) Baso % (Auto) Lymph # (Auto) [place] # (Auto) Eos # (Auto) Baso # (Auto) Absolute Neuts (auto) PT 158.9 H INR 14.32 H* APTT 76.4 H pCO2 pO2 HCO3 ABG pH ABG Total CO2 ABG O2 Saturation ABG Base Excess ABG Potassium VBG pH VBG pCO2 VBG HCO3 VBG Total CO2 VBG O2 Sat (Calc) VBG Base Excess VBG Potassium Sodium 134 Chloride 98 Glucose Lactate FiO2 Crit Value Called To Crit Value Called By Blood Gas Notified Time Potassium 6.0 H* Carbon Dioxide 13 L Anion Gap 29 H BUN 64 H Creatinine 3.6 H Est GFR ( Amer) 20 Est GFR (Non-Af Amer) 17 POC Glucose (mg/dL) Random Glucose 197 H Hemoglobin A1c Lactic Acid 8.9 H* Calcium 8.4 Phosphorus 7.8 H Magnesium 2.5 H Total Bilirubin 1.2 AST 49 ALT 15 Alkaline Phosphatase 77 Ammonia Lactate Dehydrogenase Total Creatine Kinase Troponin I Total Protein 7.2 Albumin 4.0 Globulin 3.2 Albumin/Globulin Ratio 1.2 Free T4 TSH 3rd Generation Arterial Blood Potassium Venous Blood Potassium 03/29/18 15:40 WBC RBC Hgb Hct MCV MCH MCHC RDW Plt Count MPV Neut % (Auto) Lymph % (Auto) [place] % (Auto) Eos % (Auto) Baso % (Auto) Lymph # (Auto) [place] # (Auto) Eos # (Auto) Baso # (Auto) Absolute Neuts (auto) PT INR APTT pCO2 pO2 HCO3 ABG pH ABG Total CO2 ABG O2 Saturation ABG Base Excess ABG Potassium VBG pH VBG pCO2 VBG HCO3 VBG Total CO2 VBG O2 Sat (Calc) VBG Base Excess VBG Potassium Sodium Chloride Glucose Lactate FiO2 Crit Value Called To Crit Value Called By Blood Gas Notified Time Potassium Carbon Dioxide Anion Gap BUN Creatinine Est GFR ( Amer) Est GFR (Non-Af Amer) POC Glucose (mg/dL) Random Glucose Hemoglobin A1c Lactic Acid Calcium Phosphorus Magnesium Total Bilirubin AST ALT Alkaline Phosphatase Ammonia Lactate Dehydrogenase 524 Total Creatine Kinase 181 Troponin I Total Protein Albumin Globulin Albumin/Globulin Ratio Free T4 TSH 3rd Generation Arterial Blood Potassium Venous Blood Potassium Assessment & Plan - Assessment and Plan (Free Text) Assessment: 72 y/o male patient with Right TMA seen for small wound to the right TMA site, non -infected Plan: Patient seen and evaluated Plan discussed with Dr. Grubbs Chart reviewed, patient currently in CCU Optifoam applied, bactroban ordered Patient stable from podiatry Thank you for the consult Will continue to follow - Date & Time Date: 03/29/18 Time: 16:59 <Blue Ordonez - Last Filed: 03/29/18 19:05> Meds - Medications Medications: Current Medications Albuterol/Ipratropium (Duoneb 3 Mg/0.5 Mg (3 Ml) Ud) 3 ml IH BIDRESP JASWANT Last Admin: 03/29/18 09:03 Dose: 3 ml Albuterol/Ipratropium (Duoneb 3 Mg/0.5 Mg (3 Ml) Ud) 3 ml IH [id number] PRN PRN Reason: Shortness of Breath Last Admin: 03/29/18 14:30 Dose: 3 ml Digoxin (Digoxin) 0.125 mg PO 1400 [facility] Last Admin: 03/29/18 15:44 Dose: Not Given Famotidine (Pepcid) 20 mg PO DAILY [facility] Furosemide (Lasix) 40 mg IVP Q12 [facility] Last Admin: 03/29/18 09:29 Dose: 40 mg Gabapentin (Neurontin) 600 mg PO BID [facility]; Protocol Last Admin: 03/29/18 17:54 Dose: Not Given NOREPINEPHRINE BIT/0.9 % NACL (Levophed 4 Mg/ 250 Ml Ns Premixed) 4 mg in 250 mls @ 15 mls/hr IV .[id number] PRN; Protocol PRN Reason: TITRATE PER MD ORDER Sodium Bicarbonate 150 meq/ (Sodium Chloride) 650 mls @ 100 mls/hr IV .[id number] [facility] Last Admin: 03/29/18 18:07 Dose: 100 mls/hr Insulin Human Lispro (Humalog Low) 0 units SC ACHS [facility]; Protocol Last Admin: 03/29/18 17:53 Dose: 2 units Metoprolol Tartrate (Lopressor) 50 mg PO BRKDIN [facility] Last Admin: 03/29/18 17:43 Dose: Not Given Mupirocin (Bactroban Ointment) 0 gm TOP BID [facility] Spironolactone (Aldactone) 25 mg PO BID [facility] Last Admin: 03/29/18 17:46 Dose: Not Given Results - Vital Signs Recent Vital Signs: Last Vital Signs Temp 97.1 F L 03/29/18 12:00 Pulse 46 L 03/29/18 17:43 Resp 19 03/29/18 12:00 BP 88/60 L 03/29/18 17:43 Pulse Ox 93 L 03/29/18 06:00 - Labs Result Diagrams: 03/29/18 15:15 03/29/18 15:30 Labs: Laboratory Results - last 24 hr 03/28/18 03/29/18 03/29/18 20:17 02:30 06:20 WBC 7.3 RBC 4.66 Hgb 13.1 L Hct 39.8 L MCV 85.4 MCH 28.1 MCHC 32.9 RDW 17.5 H Plt Count 232 MPV 10.2 Neut % (Auto) Lymph % (Auto) [place] % (Auto) Eos % (Auto) Baso % (Auto) Lymph # (Auto) [place] # (Auto) Eos # (Auto) Baso # (Auto) Absolute Neuts (auto) PT INR APTT pCO2 pO2 106 H 55 HCO3 ABG pH ABG Total CO2 ABG O2 Saturation ABG Base Excess ABG Potassium VBG pH 7.35 7.35 VBG pCO2 34.0 L 32.0 L VBG HCO3 18.8 L 17.7 L VBG Total CO2 19.8 L 18.7 L VBG O2 Sat (Calc) 96.4 H 89.1 H VBG Base Excess -6.0 L -6.8 L VBG Potassium 5.0 5.1 Sodium 132.0 132.0 Chloride 100.0 99.0 Glucose 170 H 197 H Lactate 2.8 H 2.7 H FiO2 21.0 21.0 Crit Value Called To Miguel Angel martins rn 2rno Crit Value Called By Pretty Peguerom Blood Gas Notified Time 2019 309 Potassium Carbon Dioxide Anion Gap BUN Creatinine Est GFR ( Amer) Est GFR (Non-Af Amer) POC Glucose (mg/dL) Random Glucose Hemoglobin A1c Lactic Acid Calcium Phosphorus Magnesium Total Bilirubin AST ALT Alkaline Phosphatase Lactate Dehydrogenase Total Creatine Kinase Troponin I Total Protein Albumin Globulin Albumin/Globulin Ratio Free T4 TSH 3rd Generation Arterial Blood Potassium Venous Blood Potassium 5.0 5.1 Urine Color Urine Appearance Urine pH Ur Specific [place] Urine Protein Urine Glucose (UA) Urine Ketones Urine Blood Urine Nitrate Urine Bilirubin Urine Urobilinogen Ur Leukocyte Esterase U Random Total Protein Digoxin Urine Opiates Screen Urine Methadone Screen Ur Barbiturates Screen Ur Phencyclidine Scrn Ur Amphetamines Screen U Benzodiazepines Scrn U Oth Cocaine Metabols U Cannabinoids Screen 03/29/18 03/29/18 03/29/18 06:20 07:47 08:45 WBC RBC Hgb Hct MCV MCH MCHC RDW Plt Count MPV Neut % (Auto) Lymph % (Auto) [place] % (Auto) Eos % (Auto) Baso % (Auto) Lymph # (Auto) [place] # (Auto) Eos # (Auto) Baso # (Auto) Absolute Neuts (auto) PT INR APTT pCO2 pO2 61 H HCO3 ABG pH ABG Total CO2 ABG O2 Saturation ABG Base Excess ABG Potassium VBG pH 7.29 L VBG pCO2 37.0 L VBG HCO3 17.8 L VBG Total CO2 18.9 L VBG O2 Sat (Calc) 90.4 H VBG Base Excess -8.1 L VBG Potassium 5.4 H Sodium 136 132.0 Chloride 101 99.0 Glucose 202 H Lactate 3.1 H FiO2 21.0 Crit Value Called To Pieter Crit Value Called By Ab Blood Gas Notified Time 858 Potassium 5.3 H Carbon Dioxide 18 L Anion Gap 22 H BUN 66 H Creatinine 2.8 H Est GFR ( Amer) 27 Est GFR (Non-Af Amer) 23 POC Glucose (mg/dL) 218 H Random Glucose 195 H Hemoglobin A1c Lactic Acid Calcium 8.9 Phosphorus 5.1 H Magnesium 2.2 Total Bilirubin 1.0 AST 41 ALT 19 Alkaline Phosphatase 91 Lactate Dehydrogenase Total Creatine Kinase Troponin I Total Protein 7.5 Albumin 4.1 Globulin 3.4 Albumin/Globulin Ratio 1.2 Free T4 TSH 3rd Generation Arterial Blood Potassium Venous Blood Potassium 5.4 H Urine Color Urine Appearance Urine pH Ur Specific [place] Urine Protein Urine Glucose (UA) Urine Ketones Urine Blood Urine Nitrate Urine Bilirubin Urine Urobilinogen Ur Leukocyte Esterase U Random Total Protein Digoxin Urine Opiates Screen Urine Methadone Screen Ur Barbiturates Screen Ur Phencyclidine Scrn Ur Amphetamines Screen U Benzodiazepines Scrn U Oth Cocaine Metabols U Cannabinoids Screen 03/29/18 03/29/18 03/29/18 09:45 10:00 11:06 WBC RBC Hgb Hct MCV MCH MCHC RDW Plt Count MPV Neut % (Auto) Lymph % (Auto) [place] % (Auto) Eos % (Auto) Baso % (Auto) Lymph # (Auto) [place] # (Auto) Eos # (Auto) Baso # (Auto) Absolute Neuts (auto) PT INR APTT pCO2 pO2 HCO3 ABG pH ABG Total CO2 ABG O2 Saturation ABG Base Excess ABG Potassium VBG pH VBG pCO2 VBG HCO3 VBG Total CO2 VBG O2 Sat (Calc) VBG Base Excess VBG Potassium Sodium Chloride Glucose Lactate FiO2 Crit Value Called To Crit Value Called By Blood Gas Notified Time Potassium Carbon Dioxide Anion Gap BUN Creatinine Est GFR ( Amer) Est GFR (Non-Af Amer) POC Glucose (mg/dL) 266 H Random Glucose Hemoglobin A1c 8.8 H Lactic Acid Calcium Phosphorus Magnesium Total Bilirubin AST ALT Alkaline Phosphatase Lactate Dehydrogenase Total Creatine Kinase Troponin I Total Protein Albumin Globulin Albumin/Globulin Ratio Free T4 1.59 TSH 3rd Generation 4.69 H Arterial Blood Potassium Venous Blood Potassium Urine Color Urine Appearance Urine pH Ur Specific [place] Urine Protein Urine Glucose (UA) Urine Ketones Urine Blood Urine Nitrate Urine Bilirubin Urine Urobilinogen Ur Leukocyte Esterase U Random Total Protein Digoxin Urine Opiates Screen Urine Methadone Screen Ur Barbiturates Screen Ur Phencyclidine Scrn Ur Amphetamines Screen U Benzodiazepines Scrn U Oth Cocaine Metabols U Cannabinoids Screen 03/29/18 03/29/18 03/29/18 12:20 13:25 14:45 WBC RBC Hgb Hct MCV MCH MCHC RDW Plt Count MPV Neut % (Auto) Lymph % (Auto) [place] % (Auto) Eos % (Auto) Baso % (Auto) Lymph # (Auto) [place] # (Auto) Eos # (Auto) Baso # (Auto) Absolute Neuts (auto) PT INR APTT pCO2 23 L pO2 67 H 83.0 HCO3 8.2 L* ABG pH 7.16 L* ABG Total CO2 8.9 L ABG O2 Saturation 93.6 L ABG Base Excess -18.7 L ABG Potassium 5.3 H VBG pH 7.30 L VBG pCO2 31.0 L VBG HCO3 15.3 L VBG Total CO2 16.3 L VBG O2 Sat (Calc) 92.4 H VBG Base Excess -9.9 L VBG Potassium 5.6 H Sodium 129.0 L 131.0 L Chloride 96.0 L 101.0 Glucose 269 H 193 H Lactate 4.7 H* 9.8 H* FiO2 21.0 40.0 Crit Value Called To Michelle hooker rn Crit Value Called By [facility] Blood Gas Notified Time [id number] Potassium Carbon Dioxide Anion Gap BUN Creatinine Est GFR ( Amer) Est GFR (Non-Af Amer) POC Glucose (mg/dL) Random Glucose Hemoglobin A1c Lactic Acid Calcium Phosphorus Magnesium Total Bilirubin AST ALT Alkaline Phosphatase Lactate Dehydrogenase Total Creatine Kinase Troponin I 0.07 Total Protein Albumin Globulin Albumin/Globulin Ratio Free T4 TSH 3rd Generation Arterial Blood Potassium 5.3 H Venous Blood Potassium 5.6 H Urine Color Urine Appearance Urine pH Ur Specific [place] Urine Protein Urine Glucose (UA) Urine Ketones Urine Blood Urine Nitrate Urine Bilirubin Urine Urobilinogen Ur Leukocyte Esterase U Random Total Protein Digoxin Urine Opiates Screen Urine Methadone Screen Ur Barbiturates Screen Ur Phencyclidine Scrn Ur Amphetamines Screen U Benzodiazepines Scrn U Oth Cocaine Metabols U Cannabinoids Screen 03/29/18 03/29/18 03/29/18 14:52 15:15 15:30 WBC 6.8 RBC 4.72 Hgb 13.4 L Hct 40.9 L MCV 86.7 MCH 28.4 MCHC 32.8 RDW 17.6 H Plt Count 242 MPV 9.8 Neut % (Auto) 76.0 H Lymph % (Auto) 16.7 L [place] % (Auto) 6.5 H Eos % (Auto) 0.1 L Baso % (Auto) 0.7 Lymph # (Auto) 1.1 L [place] # (Auto) 0.4 Eos # (Auto) 0.0 Baso # (Auto) 0.05 Absolute Neuts (auto) 5.12 PT INR APTT pCO2 pO2 HCO3 ABG pH ABG Total CO2 ABG O2 Saturation ABG Base Excess ABG Potassium VBG pH VBG pCO2 VBG HCO3 VBG Total CO2 VBG O2 Sat (Calc) VBG Base Excess VBG Potassium Sodium 134 Chloride 98 Glucose Lactate FiO2 Crit Value Called To Crit Value Called By Blood Gas Notified Time Potassium 6.0 H* Carbon Dioxide 13 L Anion Gap 29 H BUN 64 H Creatinine 3.6 H Est GFR ( Amer) 20 Est GFR (Non-Af Amer) 17 POC Glucose (mg/dL) 250 H Random Glucose 197 H Hemoglobin A1c Lactic Acid Calcium 8.4 Phosphorus 7.8 H Magnesium 2.5 H Total Bilirubin 1.2 AST 49 ALT 15 Alkaline Phosphatase 77 Lactate Dehydrogenase Total Creatine Kinase Troponin I Total Protein 7.2 Albumin 4.0 Globulin 3.2 Albumin/Globulin Ratio 1.2 Free T4 TSH 3rd Generation Arterial Blood Potassium Venous Blood Potassium Urine Color Urine Appearance Urine pH Ur Specific [place] Urine Protein Urine Glucose (UA) Urine Ketones Urine Blood Urine Nitrate Urine Bilirubin Urine Urobilinogen Ur Leukocyte Esterase U Random Total Protein Digoxin Urine Opiates Screen Urine Methadone Screen Ur Barbiturates Screen Ur Phencyclidine Scrn Ur Amphetamines Screen U Benzodiazepines Scrn U Oth Cocaine Metabols U Cannabinoids Screen 03/29/18 03/29/18 03/29/18 15:30 15:30 15:40 WBC RBC Hgb Hct MCV MCH MCHC RDW Plt Count MPV Neut % (Auto) Lymph % (Auto) [place] % (Auto) Eos % (Auto) Baso % (Auto) Lymph # (Auto) [place] # (Auto) Eos # (Auto) Baso # (Auto) Absolute Neuts (auto) PT 158.9 H INR 14.32 H* APTT 76.4 H pCO2 pO2 HCO3 ABG pH ABG Total CO2 ABG O2 Saturation ABG Base Excess ABG Potassium VBG pH VBG pCO2 VBG HCO3 VBG Total CO2 VBG O2 Sat (Calc) VBG Base Excess VBG Potassium Sodium Chloride Glucose Lactate FiO2 Crit Value Called To Crit Value Called By Blood Gas Notified Time Potassium Carbon Dioxide Anion Gap BUN Creatinine Est GFR ( Amer) Est GFR (Non-Af Amer) POC Glucose (mg/dL) Random Glucose Hemoglobin A1c Lactic Acid 8.9 H* Calcium Phosphorus Magnesium Total Bilirubin AST ALT Alkaline Phosphatase Lactate Dehydrogenase 524 Total Creatine Kinase 181 Troponin I Total Protein Albumin Globulin Albumin/Globulin Ratio Free T4 TSH 3rd Generation Arterial Blood Potassium Venous Blood Potassium Urine Color Urine Appearance Urine pH Ur Specific [place] Urine Protein Urine Glucose (UA) Urine Ketones Urine Blood Urine Nitrate Urine Bilirubin Urine Urobilinogen Ur Leukocyte Esterase U Random Total Protein Digoxin Urine Opiates Screen Urine Methadone Screen Ur Barbiturates Screen Ur Phencyclidine Scrn Ur Amphetamines Screen U Benzodiazepines Scrn U Oth Cocaine Metabols U Cannabinoids Screen 03/29/18 03/29/18 03/29/18 16:27 17:20 17:30 WBC RBC Hgb Hct MCV MCH MCHC RDW Plt Count MPV Neut % (Auto) Lymph % (Auto) [place] % (Auto) Eos % (Auto) Baso % (Auto) Lymph # (Auto) [place] # (Auto) Eos # (Auto) Baso # (Auto) Absolute Neuts (auto) PT INR APTT pCO2 pO2 HCO3 ABG pH ABG Total CO2 ABG O2 Saturation ABG Base Excess ABG Potassium VBG pH VBG pCO2 VBG HCO3 VBG Total CO2 VBG O2 Sat (Calc) VBG Base Excess VBG Potassium Sodium Chloride Glucose Lactate FiO2 Crit Value Called To Crit Value Called By Blood Gas Notified Time Potassium Carbon Dioxide Anion Gap BUN Creatinine Est GFR ( Amer) Est GFR (Non-Af Amer) POC Glucose (mg/dL) Random Glucose Hemoglobin A1c Lactic Acid Calcium Phosphorus Magnesium Total Bilirubin AST ALT Alkaline Phosphatase Lactate Dehydrogenase Total Creatine Kinase Troponin I Total Protein Albumin Globulin Albumin/Globulin Ratio Free T4 TSH 3rd Generation Arterial Blood Potassium Venous Blood Potassium Urine Color Yellow Urine Appearance Clear Urine pH 5.5 Ur Specific [place] >= 1.030 Urine Protein Negative Urine Glucose (UA) Negative Urine Ketones Negative Urine Blood Negative Urine Nitrate Negative Urine Bilirubin Negative Urine Urobilinogen 0.2 Ur Leukocyte Esterase Negative U Random Total Protein 14 Digoxin < 0.4 L Urine Opiates Screen Urine Methadone Screen Ur Barbiturates Screen Ur Phencyclidine Scrn Ur Amphetamines Screen U Benzodiazepines Scrn U Oth Cocaine Metabols U Cannabinoids Screen 03/29/18 17:30 WBC RBC Hgb Hct MCV MCH MCHC RDW Plt Count MPV Neut % (Auto) Lymph % (Auto) [place] % (Auto) Eos % (Auto) Baso % (Auto) Lymph # (Auto) [place] # (Auto) Eos # (Auto) Baso # (Auto) Absolute Neuts (auto) PT INR APTT pCO2 pO2 HCO3 ABG pH ABG Total CO2 ABG O2 Saturation ABG Base Excess ABG Potassium VBG pH VBG pCO2 VBG HCO3 VBG Total CO2 VBG O2 Sat (Calc) VBG Base Excess VBG Potassium Sodium Chloride Glucose Lactate FiO2 Crit Value Called To Crit Value Called By Blood Gas Notified Time Potassium Carbon Dioxide Anion Gap BUN Creatinine Est GFR ( Amer) Est GFR (Non-Af Amer) POC Glucose (mg/dL) Random Glucose Hemoglobin A1c Lactic Acid Calcium Phosphorus Magnesium Total Bilirubin AST ALT Alkaline Phosphatase Lactate Dehydrogenase Total Creatine Kinase Troponin I Total Protein Albumin Globulin Albumin/Globulin Ratio Free T4 TSH 3rd Generation Arterial Blood Potassium Venous Blood Potassium Urine Color Urine Appearance Urine pH Ur Specific [place] Urine Protein Urine Glucose (UA) Urine Ketones Urine Blood Urine Nitrate Urine Bilirubin Urine Urobilinogen Ur Leukocyte Esterase U Random Total Protein Digoxin Urine Opiates Screen Negative Urine Methadone Screen Negative Ur Barbiturates Screen Negative Ur Phencyclidine Scrn Negative Ur Amphetamines Screen Negative U Benzodiazepines Scrn Negative U Oth Cocaine Metabols Negative U Cannabinoids Screen Negative Attending/Attestation - Attestation I have personally seen and examined this patient.: Yes I have fully participated in the care of the patient.: Yes I have reviewed all pertinent clinical information: Yes
[2018-03-29] MEDS ORDERED: SODIUM CHLORIDE 0.9% IV SCH ×2 (17:00→17:14)
[2018-03-29] MEDS ORDERED: SODIUM BICARBONATE IV SCH ×2 (17:00→17:14)
--- NOTE | 2018-03-29 17:03 | CP.PCM.CON ---
History of Present Illness - History of Present Illness History of Present Illness: Surgery Consult note. Dr. Keller 72yo M with PMHx of HTN, HLD, DM, Gout, Gastric CA s/p resection, CAD, A.Fib on coumadin, CHF who was admitted due to worsening bilateral lower extremity swelling and abdominal distention. Patient started to have respiratory decompensation and was transferred to the ICU. Surgical consultation was re quested to r/o acute abdomen. Patient states that he has been having right upper quadrant abdominal pain radiating to the right back which started today. He denies any N/V/D. Has been having normal bowel movements. Denies any bloody or tarry stools. Denies any fevers or chills. He does report decreasing urine output for the past 3 days. Denies any sick contacts. PMHx: HTN, HLD, DM, Gout, CAD, A.Fib on coumadin, CHF, Gastric CA PSHx: Gastric CA resection 30years ago, Defibrilator, CABG, Right Foot TMA Family Hx: Non-contributory Social Hx: Admits to current tobacco use; Former ETOH abuse (quit 2014), Denies illicit drugs NKDA Review of Systems - Review of Systems All systems: reviewed and no additional remarkable complaints except - Constitutional Constitutional: As Per HPI - Cardiovascular Cardiovascular: Chest Pain, Dyspnea - Respiratory Respiratory: Dyspnea. absent: Cough - Gastrointestinal Gastrointestinal: Abdominal Pain. absent: Diarrhea, Hematemesis, Hematochezia, Nausea, Vomiting Past Patient History - Infectious Disease Hx of Infectious Diseases: None - Tetanus Immunizations Tetanus Immunization: Unknown - Past Medical History & Family History Past Family History: Reviewed and not pertinent - Past Social History Smoking Status: Heavy Smoker > 10 Cigarettes Daily Drugs: Denies - CARDIAC Hx Cardia Arrhythmia: Yes (Afib) Hx Congestive Heart Failure: Yes Hx Hypercholesterolemia: Yes Hx Hypertension: Yes Hx Internal Defibrillator: Yes Hx Pacemaker: Yes (PPM) - PULMONARY Hx Asthma: Yes Hx Emphysema: Yes - NEUROLOGICAL Hx Seizures: Yes - HEENT Hx HEENT Problems: Yes (GLASSES) - RENAL Hx Chronic Kidney Disease: No - ENDOCRINE/METABOLIC Hx Diabetes Mellitus Type 2: Yes - HEMATOLOGICAL/ONCOLOGICAL Hx Cancer: Yes (Lung, Bladder) Hx Chemotherapy: Yes - INTEGUMENTARY Hx Dermatological Problems: No - MUSCULOSKELETAL/RHEUMATOLOGICAL Hx Falls: No Hx Gout: Yes - GASTROINTESTINAL Hx Gastrointestinal Disorders: Yes (POOR APPETITE) - GENITOURINARY/GYNECOLOGICAL Hx Genitourinary Disorders: No - PSYCHIATRIC Hx Substance Use: No - SURGICAL HISTORY Hx Open Heart Surgery: Yes (CABG) - ANESTHESIA Hx Anesthesia: Yes Hx Anesthesia Reactions: No Hx Malignant Hyperthermia: No Meds Allergies/Adverse Reactions: Allergies Allergy/AdvReac Type Severity Reaction Status Date / Time No Known Allergies Allergy Verified 09/02/17 15:44 - Medications Medications: Current Medications Albuterol/Ipratropium (Duoneb 3 Mg/0.5 Mg (3 Ml) Ud) 3 ml IH BIDRESP JASWANT Last Admin: 03/29/18 09:03 Dose: 3 ml Albuterol/Ipratropium (Duoneb 3 Mg/0.5 Mg (3 Ml) Ud) 3 ml IH [id number] PRN PRN Reason: Shortness of Breath Last Admin: 03/29/18 14:30 Dose: 3 ml Digoxin (Digoxin) 0.125 mg PO 1400 JASWANT Last Admin: 03/29/18 15:44 Dose: Not Given Famotidine (Pepcid) 20 mg PO DAILY [facility] Furosemide (Lasix) 40 mg IVP Q12 [facility] Last Admin: 03/29/18 09:29 Dose: 40 mg Gabapentin (Neurontin) 600 mg PO BID [facility]; Protocol Last Admin: 03/29/18 09:29 Dose: 600 mg NOREPINEPHRINE BIT/0.9 % NACL (Levophed 4 Mg/ 250 Ml Ns Premixed) 4 mg in 250 mls @ 15 mls/hr IV .[id number] PRN; Protocol PRN Reason: TITRATE PER MD ORDER Dextrose/Sodium Chloride (Dextrose 5%/0.9% Ns 1000 Ml) 1,000 mls @ 100 mls/hr IV .Q10H [facility] Phytonadione 10 mg/ Sodium (Chloride) 51 mls @ 100 mls/hr IV ONCE ONE Stop: 03/29/18 17:07 Sodium Bicarbonate 150 meq/ (Sodium Chloride) 650 mls @ 100 mls/hr IV .[id number] [facility] Insulin Human Lispro (Humalog Low) 0 units SC ACHS [facility]; Protocol Last Admin: 03/29/18 13:31 Dose: 3 units Metoprolol Tartrate (Lopressor) 50 mg PO BRKDIN [facility] Mupirocin (Bactroban Ointment) 0 gm TOP BID [facility] Spironolactone (Aldactone) 25 mg PO BID [facility] Last Admin: 03/29/18 09:29 Dose: 25 mg Physical Exam - Constitutional Appears: Older Than Stated Age - Head Exam Head Exam: ATRAUMATIC, NORMAL INSPECTION, NORMOCEPHALIC - Eye Exam Eye Exam: EOMI, Normal appearance. absent: Scleral icterus - ENT Exam ENT Exam: Mucous Membranes Moist - Cardiovascular Exam Cardiovascular Exam: Bradycardia. absent: JVD - GI/Abdominal Exam GI & Abdominal Exam: Soft. absent: Distended, Firm, Guarding, Rebound Additional comments: Mild tender to palpation RUQ. No rebound. No guarding. No peritoneal signs - Extremities Exam Extremities exam: Positive for: pedal edema - Neurological Exam Neurological exam: Alert, Oriented x3 - Psychiatric Exam Psychiatric exam: Normal Affect, Normal Mood - Skin Skin Exam: Dry, Intact, Normal Color, Warm Results - Vital Signs Recent Vital Signs: Last Vital Signs Temp 97.1 F L 03/29/18 12:00 Pulse 59 L 03/29/18 12:00 Resp 19 03/29/18 12:00 BP 93/66 L 03/29/18 12:00 Pulse Ox 93 L 03/29/18 06:00 - Labs Result Diagrams: 03/29/18 15:15 03/29/18 18:30 Labs: Laboratory Results - last 24 hr 03/28/18 03/28/18 03/29/18 17:32 20:17 02:30 WBC RBC Hgb Hct MCV MCH MCHC RDW Plt Count MPV Neut % (Auto) Lymph % (Auto) [place] % (Auto) Eos % (Auto) Baso % (Auto) Lymph # (Auto) [place] # (Auto) Eos # (Auto) Baso # (Auto) Absolute Neuts (auto) PT INR APTT pCO2 pO2 106 H 55 HCO3 ABG pH ABG Total CO2 ABG O2 Saturation ABG Base Excess ABG Potassium VBG pH 7.35 7.35 VBG pCO2 34.0 L 32.0 L VBG HCO3 18.8 L 17.7 L VBG Total CO2 19.8 L 18.7 L VBG O2 Sat (Calc) 96.4 H 89.1 H VBG Base Excess -6.0 L -6.8 L VBG Potassium 5.0 5.1 Sodium 132.0 132.0 Chloride 100.0 99.0 Glucose 170 H 197 H Lactate 2.8 H 2.7 H FiO2 21.0 21.0 Crit Value Called To Miguel Angel martins rn 2rno Crit Value Called By [facility] Blood Gas Notified Time 2019 309 Potassium Carbon Dioxide Anion Gap BUN Creatinine Est GFR ( Amer) Est GFR (Non-Af Amer) POC Glucose (mg/dL) Random Glucose Hemoglobin A1c Lactic Acid Calcium Phosphorus Magnesium Total Bilirubin AST ALT Alkaline Phosphatase Ammonia 34 H Lactate Dehydrogenase Total Creatine Kinase Troponin I Total Protein Albumin Globulin Albumin/Globulin Ratio Free T4 TSH 3rd Generation Arterial Blood Potassium Venous Blood Potassium 5.0 5.1 Urine Color Urine Appearance Urine pH Ur Specific [place] Urine Protein Urine Glucose (UA) Urine Ketones Urine Blood Urine Nitrate Urine Bilirubin Urine Urobilinogen Ur Leukocyte Esterase 03/29/18 03/29/18 03/29/18 06:20 06:20 07:47 WBC 7.3 RBC 4.66 Hgb 13.1 L Hct 39.8 L MCV 85.4 MCH 28.1 MCHC 32.9 RDW 17.5 H Plt Count 232 MPV 10.2 Neut % (Auto) Lymph % (Auto) [place] % (Auto) Eos % (Auto) Baso % (Auto) Lymph # (Auto) [place] # (Auto) Eos # (Auto) Baso # (Auto) Absolute Neuts (auto) PT INR APTT pCO2 pO2 HCO3 ABG pH ABG Total CO2 ABG O2 Saturation ABG Base Excess ABG Potassium VBG pH VBG pCO2 VBG HCO3 VBG Total CO2 VBG O2 Sat (Calc) VBG Base Excess VBG Potassium Sodium 136 Chloride 101 Glucose Lactate FiO2 Crit Value Called To Crit Value Called By Blood Gas Notified Time Potassium 5.3 H Carbon Dioxide 18 L Anion Gap 22 H BUN 66 H Creatinine 2.8 H Est GFR ( Amer) 27 Est GFR (Non-Af Amer) 23 POC Glucose (mg/dL) 218 H Random Glucose 195 H Hemoglobin A1c Lactic Acid Calcium 8.9 Phosphorus 5.1 H Magnesium 2.2 Total Bilirubin 1.0 AST 41 ALT 19 Alkaline Phosphatase 91 Ammonia Lactate Dehydrogenase Total Creatine Kinase Troponin I Total Protein 7.5 Albumin 4.1 Globulin 3.4 Albumin/Globulin Ratio 1.2 Free T4 TSH 3rd Generation Arterial Blood Potassium Venous Blood Potassium Urine Color Urine Appearance Urine pH Ur Specific [place] Urine Protein Urine Glucose (UA) Urine Ketones Urine Blood Urine Nitrate Urine Bilirubin Urine Urobilinogen Ur Leukocyte Esterase 03/29/18 03/29/18 03/29/18 08:45 09:45 10:00 WBC RBC Hgb Hct MCV MCH MCHC RDW Plt Count MPV Neut % (Auto) Lymph % (Auto) [place] % (Auto) Eos % (Auto) Baso % (Auto) Lymph # (Auto) [place] # (Auto) Eos # (Auto) Baso # (Auto) Absolute Neuts (auto) PT INR APTT pCO2 pO2 61 H HCO3 ABG pH ABG Total CO2 ABG O2 Saturation ABG Base Excess ABG Potassium VBG pH 7.29 L VBG pCO2 37.0 L VBG HCO3 17.8 L VBG Total CO2 18.9 L VBG O2 Sat (Calc) 90.4 H VBG Base Excess -8.1 L VBG Potassium 5.4 H Sodium 132.0 Chloride 99.0 Glucose 202 H Lactate 3.1 H FiO2 21.0 Crit Value Called To Pieter Crit Value Called By Ab Blood Gas Notified Time 858 Potassium Carbon Dioxide Anion Gap BUN Creatinine Est GFR ( Amer) Est GFR (Non-Af Amer) POC Glucose (mg/dL) Random Glucose Hemoglobin A1c 8.8 H Lactic Acid Calcium Phosphorus Magnesium Total Bilirubin AST ALT Alkaline Phosphatase Ammonia Lactate Dehydrogenase Total Creatine Kinase Troponin I Total Protein Albumin Globulin Albumin/Globulin Ratio Free T4 1.59 TSH 3rd Generation 4.69 H Arterial Blood Potassium Venous Blood Potassium 5.4 H Urine Color Urine Appearance Urine pH Ur Specific [place] Urine Protein Urine Glucose (UA) Urine Ketones Urine Blood Urine Nitrate Urine Bilirubin Urine Urobilinogen Ur Leukocyte Esterase 03/29/18 03/29/18 03/29/18 11:06 12:20 13:25 WBC RBC Hgb Hct MCV MCH MCHC RDW Plt Count MPV Neut % (Auto) Lymph % (Auto) [place] % (Auto) Eos % (Auto) Baso % (Auto) Lymph # (Auto) [place] # (Auto) Eos # (Auto) Baso # (Auto) Absolute Neuts (auto) PT INR APTT pCO2 pO2 67 H HCO3 ABG pH ABG Total CO2 ABG O2 Saturation ABG Base Excess ABG Potassium VBG pH 7.30 L VBG pCO2 31.0 L VBG HCO3 15.3 L VBG Total CO2 16.3 L VBG O2 Sat (Calc) 92.4 H VBG Base Excess -9.9 L VBG Potassium 5.6 H Sodium 129.0 L Chloride 96.0 L Glucose 269 H Lactate 4.7 H* FiO2 21.0 Crit Value Called To Michelle cooper Crit Value Called By Blood Gas Notified Time 1225 Potassium Carbon Dioxide Anion Gap BUN Creatinine Est GFR ( Amer) Est GFR (Non-Af Amer) POC Glucose (mg/dL) 266 H Random Glucose Hemoglobin A1c Lactic Acid Calcium Phosphorus Magnesium Total Bilirubin AST ALT Alkaline Phosphatase Ammonia Lactate Dehydrogenase Total Creatine Kinase Troponin I 0.07 Total Protein Albumin Globulin Albumin/Globulin Ratio Free T4 TSH 3rd Generation Arterial Blood Potassium Venous Blood Potassium 5.6 H Urine Color Urine Appearance Urine pH Ur Specific [place] Urine Protein Urine Glucose (UA) Urine Ketones Urine Blood Urine Nitrate Urine Bilirubin Urine Urobilinogen Ur Leukocyte Esterase 03/29/18 03/29/18 03/29/18 14:45 14:52 15:15 WBC 6.8 RBC 4.72 Hgb 13.4 L Hct 40.9 L MCV 86.7 MCH 28.4 MCHC 32.8 RDW 17.6 H Plt Count 242 MPV 9.8 Neut % (Auto) 76.0 H Lymph % (Auto) 16.7 L [place] % (Auto) 6.5 H Eos % (Auto) 0.1 L Baso % (Auto) 0.7 Lymph # (Auto) 1.1 L [place] # (Auto) 0.4 Eos # (Auto) 0.0 Baso # (Auto) 0.05 Absolute Neuts (auto) 5.12 PT INR APTT pCO2 23 L pO2 83.0 HCO3 8.2 L* ABG pH 7.16 L* ABG Total CO2 8.9 L ABG O2 Saturation 93.6 L ABG Base Excess -18.7 L ABG Potassium 5.3 H VBG pH VBG pCO2 VBG HCO3 VBG Total CO2 VBG O2 Sat (Calc) VBG Base Excess VBG Potassium Sodium 131.0 L Chloride 101.0 Glucose 193 H Lactate 9.8 H* FiO2 40.0 Crit Value Called To Betty hooker rn Crit Value Called By Blood Gas Notified Time 1452 Potassium Carbon Dioxide Anion Gap BUN Creatinine Est GFR ( Amer) Est GFR (Non-Af Amer) POC Glucose (mg/dL) 250 H Random Glucose Hemoglobin A1c Lactic Acid Calcium Phosphorus Magnesium Total Bilirubin AST ALT Alkaline Phosphatase Ammonia Lactate Dehydrogenase Total Creatine Kinase Troponin I Total Protein Albumin Globulin Albumin/Globulin Ratio Free T4 TSH 3rd Generation Arterial Blood Potassium 5.3 H Venous Blood Potassium Urine Color Urine Appearance Urine pH Ur Specific [place] Urine Protein Urine Glucose (UA) Urine Ketones Urine Blood Urine Nitrate Urine Bilirubin Urine Urobilinogen Ur Leukocyte Esterase 03/29/18 03/29/18 03/29/18 15:30 15:30 15:30 WBC RBC Hgb Hct MCV MCH MCHC RDW Plt Count MPV Neut % (Auto) Lymph % (Auto) [place] % (Auto) Eos % (Auto) Baso % (Auto) Lymph # (Auto) [place] # (Auto) Eos # (Auto) Baso # (Auto) Absolute Neuts (auto) PT 158.9 H INR 14.32 H* APTT 76.4 H pCO2 pO2 HCO3 ABG pH ABG Total CO2 ABG O2 Saturation ABG Base Excess ABG Potassium VBG pH VBG pCO2 VBG HCO3 VBG Total CO2 VBG O2 Sat (Calc) VBG Base Excess VBG Potassium Sodium 134 Chloride 98 Glucose Lactate FiO2 Crit Value Called To Crit Value Called By Blood Gas Notified Time Potassium 6.0 H* Carbon Dioxide 13 L Anion Gap 29 H BUN 64 H Creatinine 3.6 H Est GFR ( Amer) 20 Est GFR (Non-Af Amer) 17 POC Glucose (mg/dL) Random Glucose 197 H Hemoglobin A1c Lactic Acid 8.9 H* Calcium 8.4 Phosphorus 7.8 H Magnesium 2.5 H Total Bilirubin 1.2 AST 49 ALT 15 Alkaline Phosphatase 77 Ammonia Lactate Dehydrogenase Total Creatine Kinase Troponin I Total Protein 7.2 Albumin 4.0 Globulin 3.2 Albumin/Globulin Ratio 1.2 Free T4 TSH 3rd Generation Arterial Blood Potassium Venous Blood Potassium Urine Color Urine Appearance Urine pH Ur Specific [place] Urine Protein Urine Glucose (UA) Urine Ketones Urine Blood Urine Nitrate Urine Bilirubin Urine Urobilinogen Ur Leukocyte Esterase 03/29/18 03/29/18 15:40 16:27 WBC RBC Hgb Hct MCV MCH MCHC RDW Plt Count MPV Neut % (Auto) Lymph % (Auto) [place] % (Auto) Eos % (Auto) Baso % (Auto) Lymph # (Auto) [place] # (Auto) Eos # (Auto) Baso # (Auto) Absolute Neuts (auto) PT INR APTT pCO2 pO2 HCO3 ABG pH ABG Total CO2 ABG O2 Saturation ABG Base Excess ABG Potassium VBG pH VBG pCO2 VBG HCO3 VBG Total CO2 VBG O2 Sat (Calc) VBG Base Excess VBG Potassium Sodium Chloride Glucose Lactate FiO2 Crit Value Called To Crit Value Called By Blood Gas Notified Time Potassium Carbon Dioxide Anion Gap BUN Creatinine Est GFR ( Amer) Est GFR (Non-Af Amer) POC Glucose (mg/dL) Random Glucose Hemoglobin A1c Lactic Acid Calcium Phosphorus Magnesium Total Bilirubin AST ALT Alkaline Phosphatase Ammonia Lactate Dehydrogenase 524 Total Creatine Kinase 181 Troponin I Total Protein Albumin Globulin Albumin/Globulin Ratio Free T4 TSH 3rd Generation Arterial Blood Potassium Venous Blood Potassium Urine Color Yellow Urine Appearance Clear Urine pH 5.5 Ur Specific [place] >= 1.030 Urine Protein Negative Urine Glucose (UA) Negative Urine Ketones Negative Urine Blood Negative Urine Nitrate Negative Urine Bilirubin Negative Urine Urobilinogen 0.2 Ur Leukocyte Esterase Negative Assessment & Plan - Assessment and Plan (Free Text) Assessment: 72yo M w PMHx of HTN, HLD, CAD, DM, A.Fib on coumadin, CHF here with worsening abdominal distention, lactic acidosis, and supratheraputic INR. Surgery consulted for possible acute abdomen. - CT Abd/Pelvis noted. Cholelithiasis. Moderate abdominal ascites. B/L Pleural Effusions. Plan: - Will continue to monitor - Abdominal source not likely. Will continue serial abdominal exams - Continue medical management as per ICU and medical teams Further recs as per Dr. Krishna Carreon PGY2 surgery
[2018-03-29] MEDS ORDERED: Dextrose 50% SYRINGE Inj (50 ml) IVP ONE (17:25)
[2018-03-29 17:45] VITALS: BP 88/60
[2018-03-29] MEDS ORDERED: Mupirocin 2% Ointment 15 GM TUBE TOP SCH (18:00)
[2018-03-29 18:17] LABS: OPIATES, UR NEGATIVE (NEGATIVE); PHENCYCLIDINE, UR NEGATIVE (NEGATIVE)
[2018-03-29 18:20] LABS: BARBITURATES, UR NEGATIVE (NEGATIVE); BENZODIAZEPINES, UR NEGATIVE (NEGATIVE)
[2018-03-29 19:05] LABS: ALB/GLOB RATIO 1.3 (1.1-1.8); ALBUMIN 3.9 g/dL (3.0-4.8); CALCIUM 8.3 mg/dL (8.4-10.5)
[2018-03-29 19:09] LABS: VENOUS BLOOD GAS BASE EXCESS -12.7 mmol/L (0.0-2.0); VENOUS BLOOD GAS PO2 173 mm/Hg (30-55); VENOUS BLOOD PH 7.25 (7.32-7.43)
[2018-03-29 19:41] LABS: CREATININE,RANDOM URINE 150 mg/dL
[2018-03-29] MEDS ORDERED: Vancomycin 1.5 GM in Sodium Chloride 0.9% 500 ML IVPB ONE (21:09)
[2018-03-29] MEDS: MEROPENEM 500 MG in NS 500 MG/50 ML BAG IVPB SCH (22:06)
[2018-03-29 22:47] LABS: ACETAMINOPHEN < 10.0 ug/ml (10.0-20.0); SALICYLATE < 1 mg/dL (2.0-20.0)
--- NOTE | 2018-03-29 22:53 | CARD ---
APPROVED REPORT Date of service: 03/29/2018 EKG Measurement Heart [id number] <Conclusion> Demand pacemaker, interpretation is based on intrinsic rhythm Atrial fibrillation with slow ventricular response with premature ventricular or aberrantly conducted complexes Nonspecific intraventricular block Possible Lateral infarct, age undetermined NDSTT abnormalities CCR Abnormal ECG
--- NOTE | 2018-03-30 02:04 | CON ---
DATE: 03/29/2018 REQUESTING PHYSICIAN: Dr. Holt REASON FOR CONSULTATION: Atrial fibrillation. HISTORY: This is a 72-year-old man known to us with a history of coronary artery disease status post prior myocardial infarction, severe LV dysfunction and a history of alcohol abuse, admitted with worsening abdominal distention and leg edema. He has had several admissions for similar problems in the past. He claims compliance with his medications. PAST HISTORY: Notable for chronic atrial fibrillation, left ventricular dysfunction, hypertension, hyperlipidemia. 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 and [facility] for this. He has had prior toe amputation on his right foot as well as gastric cancer, prior cerebrovascular disease and peripheral neuropathy. MEDICATIONS AT HOME: Include Aldactone, colchicine, Coumadin, Neurontin, Nicoderm patch and Pepcid. ALLERGIES: NONE. SOCIAL HISTORY: He has been a smoker for many years. He also has a history of alcohol abuse. FAMILY HISTORY: Both parents from age-related illness. REVIEW OF SYSTEMS: Ten-point review of systems is otherwise unremarkable. PHYSICAL EXAMINATION: GENERAL: He is a toxic-appearing elderly man who appears comfortable at rest. VITAL SIGNS: His blood pressure is 130/78, pulse of 82 and atrial fibrillation, respirations are 16. He is currently afebrile. HEENT: Normocephalic, atraumatic. NECK: Supple. No JVD noted. CHEST: Bilateral scattered rhonchi are heard. HEART: PMI normal position. Soft tones are noted. Systolic murmur is noted at the lower left sternal border. ABDOMEN: Distended. Ascites appears present. Bowel sounds are present. Mild diffuse tenderness is noted. EXTREMITIES: 3+ leg edema is noted. SKIN: Warm and dry. PSYCHIATRIC: Somewhat flat affect. NEUROLOGIC: Oriented to person, place and time. No gross motor or sensory deficits noted. DIAGNOSTIC DATA: White count 7.3, hemoglobin and hematocrit of 13.1 and 39.8 with a platelet count of 232,000. Venous blood gas showed pH 7.35, pCO2 of 32 and pO2 of 18.7. Lactic acid was 2.7. Potassium 5.3. BUN and creatinine of 66 and 2.8. Glucose 195. TSH 4.69. Electrocardiogram reveals atrial fibrillation with rapid ventricular response, left axis deviation, and prior anterolateral myocardial infarction pattern cannot be excluded. Chest x-ray reveals mildly increased cardiac silhouette with bilateral congestive changes. CT of the abdomen reveals moderate ascites and cholelithiasis. IMPRESSION: 1. Ascites and peripheral edema, unclear if this is due to passive congestion secondary to left ventricular dysfunction or due to some underlying hepatobiliary disease. The patient does have a history of alcohol abuse in the past. 2. Coronary artery disease status post prior myocardial infarction and known severe left ventricular dysfunction. 3. Chronic atrial fibrillation. 4. Status post implantable cardioverter defibrillator implant. 5. Renal insufficiency and metabolic abnormalities, needs further evaluation. RECOMMENDATIONS: Beta-dianne therapy will be continued for rate control at the present time. IV diltiazem can be discontinued. Evaluation for possible paracentesis should be considered. IV diuretic therapy will be initiated as blood pressure allows. Further recommendations will be made based upon his clinical course and responses to the above interventions. Thank you for this consultation. We will be happy to follow along as needed. Chuy Spaulding MD
[2018-03-30] MEDS ORDERED: Sodium Bicarbonate 8.4% 150 MEQ in Dextrose 5% In Water 1,000 ML IV SCH (05:00)
[2018-03-30 05:22] LABS: ARTERIAL BLOOD GAS HCO3 12.9 mmol/L (21-28); ARTERIAL BLOOD GAS HEMOGLOBIN 13.4 g/dL (11.7-17.4); ARTERIAL BLOOD GAS O2 CAPACITY 18.7 mL/dl (16-24); ARTERIAL BLOOD GAS O2 SAT 91.1 % (95-98); ARTERIAL BLOOD GAS PCO2 25 mm/Hg (35-45); ARTERIAL BLOOD GAS PH 7.32 (7.35-7.45); ARTERIAL BLOOD GAS TCO2 13.7 mmol.L (22-28)
[2018-03-30 06:48] LABS: INR 2.57
[2018-03-30 06:50] LABS: BASO # 0.01 K/mm3 (0.0-2.0); BASO % 0.1 % (0.0-3.0); HEMOGLOBIN 13.3 g/dL (14.0-18.0); LYMPH # 0.7 (1.2-3.4); LYMPH % 5.3 % (22.0-35.0); MEAN CELL VOLUME 87.5 fl (80.0-105.0); MEAN CORPUSCULAR HEMOGLOBIN 28.2 pg (25.0-35.0); MEAN CORPUSCULAR HGB CONC 32.2 g/dl (31.0-37.0); MEAN PLATELET VOLUME 10.7 fl (7.0-11.0); MONO # 1.4 (0.1-0.6); MONO % 10.8 % (1.0-6.0); RBC 4.72 10^6/uL (3.5-6.1); RED CELL DISTRIBUTION WIDTH 18.1 % (11.5-14.5); WHITE BLOOD COUNT 12.9 10^3/uL (4.5-11.0)
[2018-03-30 07:22] LABS: ALB/GLOB RATIO 1.3 (1.1-1.8); ALBUMIN 4.3 g/dL (3.0-4.8); CALCIUM 8.4 mg/dL (8.4-10.5)
--- NOTE | 2018-03-30 07:37 | CP.PCM.PN ---
Objective - Vital Signs/Intake and Output Vital Signs (last 24 hours): Temp Pulse Resp BP Pulse Ox 97.1 F L 71 19 88/60 L 93 L 03/29/18 12:00 03/29/18 22:00 03/29/18 12:00 03/29/18 17:43 03/29/18 06:00 - Medications Medications: Current Medications Albuterol/Ipratropium (Duoneb 3 Mg/0.5 Mg (3 Ml) Ud) 3 ml IH BIDRESP JASWANT Last Admin: 03/29/18 20:44 Dose: 3 ml Albuterol/Ipratropium (Duoneb 3 Mg/0.5 Mg (3 Ml) Ud) 3 ml IH [id number] PRN PRN Reason: Shortness of Breath Last Admin: 03/29/18 14:30 Dose: 3 ml Digoxin (Digoxin) 0.125 mg PO 1400 JASWANT Last Admin: 03/29/18 15:44 Dose: Not Given Famotidine (Pepcid) 20 mg PO DAILY [facility] NOREPINEPHRINE BIT/0.9 % NACL (Levophed 4 Mg/ 250 Ml Ns Premixed) 4 mg in 250 mls @ 15 mls/hr IV .[id number] PRN; Protocol PRN Reason: TITRATE PER MD ORDER Last Admin: 03/30/18 02:56 Dose: 4 mcg/min, 15 mls/hr Meropenem/Sodium Chloride (Merrem Iv 500 Mg/Ns 50 Ml) 500 mg in 50 mls @ 100 mls/hr IVPB Q12 JASWANT; Protocol Stop: 04/05/18 22:01 Last Admin: 03/29/18 22:06 Dose: 100 mls/hr Sodium Bicarbonate 150 meq/ (Dextrose) 1,150 mls @ 100 mls/hr IV .[id number] [facility] Insulin Human Lispro (Humalog Low) 0 units SC ACHS [facility]; Protocol Last Admin: 03/29/18 22:04 Dose: Not Given Metoprolol Tartrate (Lopressor) 50 mg PO BRKDIN [facility] Last Admin: 03/29/18 17:43 Dose: Not Given Mupirocin (Bactroban Ointment) 0 gm TOP BID [facility] - Labs Labs: 03/30/18 06:00 03/30/18 06:00 PT 29.0 SECONDS (9.4-12.5) H 03/30/18 06:00 INR 2.57 03/30/18 06:00 APTT 76.4 Seconds (26.9-38.3) H 03/29/18 15:30
[2018-03-30] MEDS: Albuterol-Ipratrop 3 mg / 0.5 (3 ml) UD IH SCH (07:38)
[2018-03-30] MEDS ORDERED: Dextrose 50% SYRINGE Inj (50 ml) IV PRN (07:58)
[2018-03-30] MEDS ORDERED: Sodium Bicarbonate (8.4%) 50 Meq Syringe IVP ONE (07:58)
[2018-03-30] MEDS ORDERED: Dextrose 50% SYRINGE Inj (50 ml) IVP ONE (07:58)
[2018-03-30] MEDS ORDERED: Insulin Regular 1 UNITS/0.01 ML ML SC ONE (08:00)
[2018-03-30] MEDS: Insulin Lispro (humaLOG) LOW Coverage SC SCH ×2 (08:05→13:48)
[2018-03-30 08:07] VITALS: TEMP 97.3
[2018-03-30] MEDS ORDERED: Insulin Regular 1 UNITS/0.01 ML ML IV ONE (08:33)
[2018-03-30 08:35] LABS: HDL CHOLESTEROL 24 mg/dL (29-60)
[2018-03-30 08:46] LABS: LDL CHOLESTEROL 78 mg/dL (0-129)
[2018-03-30] MEDS ORDERED: SODIUM CHLORIDE 0.9% IV ONE (09:00)
[2018-03-30] MEDS ORDERED: CALCIUM GLUCONATE IV ONE (09:00)
[2018-03-30] MEDS: MEROPENEM 500 MG in NS 500 MG/50 ML BAG IVPB SCH (09:27)
--- NOTE | 2018-03-30 10:37 | CP.PCM.CON ---
<Joesph Lundberg - Last Filed: 03/30/18 13:55> History of Present Illness - History of Present Illness History of Present Illness: ID Consult Note 72 year old male with past medical history of A-fib, CHF, HTN, HLD, DM2, Gout, AICD, and CAD s/p CABG presented to the hospital for worsening shortness of breath and lower extremity swelling over 2 days. Patient is agitated and lethargic in the ICU, medical history obtained from prior medical records. Patient was admitted to for a-fib with RVR. 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 Patient was hypotensive and started Levophed. Patient also noted to have an elevated INR. Medical Hx: A-fib, CHF, HTN, HLD, DM2, Gout, AICD, and CAD s/p CABG Surgical Hx: Gastric CA resection, Defibrillator, CABG, Right Foot TMA Social Hx: Denies alcohol, tobacco, and illicit drug use Allergies: NKDA Medications: Reviewed, as per MAR Review of Systems - Review of Systems Systems not reviewed;Unavailable: Altered Mental Status Past Patient History - Infectious Disease Hx of Infectious Diseases: None - Tetanus Immunizations Tetanus Immunization: Unknown - Past Medical History & Family History Past Family History: Reviewed and not pertinent - Past Social History Smoking Status: Heavy Smoker > 10 Cigarettes Daily - CARDIAC Hx Cardia Arrhythmia: Yes (Afib) Hx Congestive Heart Failure: Yes Hx Hypercholesterolemia: Yes Hx Hypertension: Yes Hx Internal Defibrillator: Yes Hx Pacemaker: Yes (PPM) - PULMONARY Hx Asthma: Yes Hx Emphysema: Yes - NEUROLOGICAL Hx Seizures: Yes - HEENT Hx HEENT Problems: Yes (GLASSES) - RENAL Hx Chronic Kidney Disease: No - ENDOCRINE/METABOLIC Hx Diabetes Mellitus Type 2: Yes - HEMATOLOGICAL/ONCOLOGICAL Hx Cancer: Yes (Lung, Bladder) Hx Chemotherapy: Yes - INTEGUMENTARY Hx Dermatological Problems: No - MUSCULOSKELETAL/RHEUMATOLOGICAL Hx Falls: No Hx Gout: Yes - GASTROINTESTINAL Hx Gastrointestinal Disorders: Yes (POOR APPETITE) - GENITOURINARY/GYNECOLOGICAL Hx Genitourinary Disorders: No - PSYCHIATRIC Hx Substance Use: No - SURGICAL HISTORY Hx Open Heart Surgery: Yes (CABG) - ANESTHESIA Hx Anesthesia: Yes Hx Anesthesia Reactions: No Hx Malignant Hyperthermia: No Meds Allergies/Adverse Reactions: Allergies Allergy/AdvReac Type Severity Reaction Status Date / Time No Known Allergies Allergy Verified 09/02/17 15:44 - Medications Medications: Current Medications Albuterol/Ipratropium (Duoneb 3 Mg/0.5 Mg (3 Ml) Ud) 3 ml IH BIDRESP [facility] Last Admin: 03/30/18 07:38 Dose: 3 ml Albuterol/Ipratropium (Duoneb 3 Mg/0.5 Mg (3 Ml) Ud) 3 ml IH [id number] PRN PRN Reason: Shortness of Breath Last Admin: 03/29/18 14:30 Dose: 3 ml Dextrose (Dextrose 50% Inj) 0 ml IV STAT PRN; Protocol PRN Reason: Hypoglycemia Protocol Digoxin (Digoxin) 0.125 mg PO 1400 [facility] Last Admin: 03/29/18 15:44 Dose: Not Given Famotidine (Pepcid) 20 mg PO DAILY [facility] Last Admin: 03/30/18 09:23 Dose: 20 mg NOREPINEPHRINE BIT/0.9 % NACL (Levophed 4 Mg/ 250 Ml Ns Premixed) 4 mg in 250 mls @ 15 mls/hr IV .[id number] PRN; Protocol PRN Reason: TITRATE PER MD ORDER Last Admin: 03/30/18 02:56 Dose: 4 mcg/min, 15 mls/hr Meropenem/Sodium Chloride (Merrem Iv 500 Mg/Ns 50 Ml) 500 mg in 50 mls @ 100 mls/hr IVPB Q12 JASWANT; Protocol Stop: 04/05/18 22:01 Last Admin: 03/30/18 09:27 Dose: 100 mls/hr Sodium Bicarbonate 150 meq/ (Dextrose) 1,150 mls @ 100 mls/hr IV .[id number] [facility] Dextrose (Dextrose 5% In Water 1000 Ml) 1,000 mls @ 0 mls/hr IV .Q0M PRN; Protocol PRN Reason: Hypoglycemia Protocol Insulin Human Lispro (Humalog Low) 0 units SC ACHS [facility]; Protocol Last Admin: 03/30/18 08:05 Dose: Not Given Metoprolol Tartrate (Lopressor) 50 mg PO BRKDIN [facility] Last Admin: 03/30/18 09:02 Dose: Not Given Mupirocin (Bactroban Ointment) 0 gm TOP BID [facility] Physical Exam - Constitutional Appears: Non-toxic, Confused - Head Exam Head Exam: ATRAUMATIC, NORMAL INSPECTION, NORMOCEPHALIC - ENT Exam ENT Exam: Mucous Membranes Dry - Respiratory Exam Respiratory Exam: Decreased Breath Sounds, NORMAL BREATHING PATTERN. absent: Rales, Rhonchi, Wheezes - Cardiovascular Exam Cardiovascular Exam: RRR, +S1, +S2 - GI/Abdominal Exam GI & Abdominal Exam: Diminished Bowel Sounds, Distended, Firm. absent: Guarding, Tenderness - Extremities Exam Extremities exam: Positive for: pedal edema (+2 edema b/l) - Neurological Exam Additional comments: agitated - Skin Skin Exam: Intact, Normal Color, Warm Results - Vital Signs Recent Vital Signs: Last Vital Signs Temp 97.3 F L 03/30/18 06:00 Pulse 74 03/30/18 06:00 Resp 19 03/29/18 12:00 BP 88/60 L 03/29/18 17:43 Pulse Ox 93 L 03/29/18 06:00 - Labs Result Diagrams: 03/30/18 06:00 03/30/18 06:00 Labs: Laboratory Results - last 24 hr 03/29/18 03/29/18 03/29/18 09:45 10:00 11:06 WBC RBC Hgb Hct MCV MCH MCHC RDW Plt Count MPV Neut % (Auto) Lymph % (Auto) [place] % (Auto) Eos % (Auto) Baso % (Auto) Lymph # (Auto) [place] # (Auto) Eos # (Auto) Baso # (Auto) Absolute Neuts (auto) PT INR APTT pCO2 pO2 HCO3 ABG pH ABG Total CO2 ABG O2 Saturation ABG O2 Content ABG Base Excess ABG Hemoglobin ABG Carboxyhemoglobin POC ABG HHb (Measured) ABG Methemoglobin ABG O2 Capacity ABG Potassium VBG pH VBG pCO2 VBG HCO3 VBG Total CO2 VBG O2 Sat (Calc) VBG Base Excess VBG Potassium Hgb O2 Saturation Sodium Chloride Glucose Lactate FiO2 Crit Value Called To Crit Value Called By Blood Gas Notified Time Potassium Carbon Dioxide Anion Gap BUN Creatinine Est GFR ( Amer) Est GFR (Non-Af Amer) POC Glucose (mg/dL) 266 H Random Glucose Hemoglobin A1c 8.8 H Serum Osmolality Lactic Acid Calcium Phosphorus Magnesium Total Bilirubin AST ALT Alkaline Phosphatase Ammonia Lactate Dehydrogenase Total Creatine Kinase Troponin I Total Protein Albumin Globulin Albumin/Globulin Ratio Triglycerides Cholesterol LDL Cholesterol Direct HDL Cholesterol Free T4 1.59 TSH 3rd Generation 4.69 H Arterial Blood Potassium Venous Blood Potassium Urine Color Urine Appearance Urine pH Ur Specific [place] Urine Protein Urine Glucose (UA) Urine Ketones Urine Blood Urine Nitrate Urine Bilirubin Urine Urobilinogen Ur Leukocyte Esterase Ur Random Creatinine U Random Total Protein Ur Random Sodium Digoxin Salicylates Urine Opiates Screen Urine Methadone Screen Acetaminophen Ur Barbiturates Screen Ur Phencyclidine Scrn Ur Amphetamines Screen U Benzodiazepines Scrn U Oth Cocaine Metabols U Cannabinoids Screen Alcohol, Quantitative 03/29/18 03/29/18 03/29/18 12:20 13:25 14:45 WBC RBC Hgb Hct MCV MCH MCHC RDW Plt Count MPV Neut % (Auto) Lymph % (Auto) [place] % (Auto) Eos % (Auto) Baso % (Auto) Lymph # (Auto) [place] # (Auto) Eos # (Auto) Baso # (Auto) Absolute Neuts (auto) PT INR APTT pCO2 23 L pO2 67 H 83.0 HCO3 8.2 L* ABG pH 7.16 L* ABG Total CO2 8.9 L ABG O2 Saturation 93.6 L ABG O2 Content ABG Base Excess -18.7 L ABG Hemoglobin ABG Carboxyhemoglobin POC ABG HHb (Measured) ABG Methemoglobin ABG O2 Capacity ABG Potassium 5.3 H VBG pH 7.30 L VBG pCO2 31.0 L VBG HCO3 15.3 L VBG Total CO2 16.3 L VBG O2 Sat (Calc) 92.4 H VBG Base Excess -9.9 L VBG Potassium 5.6 H Hgb O2 Saturation Sodium 129.0 L 131.0 L Chloride 96.0 L 101.0 Glucose 269 H 193 H Lactate 4.7 H* 9.8 H* FiO2 21.0 40.0 Crit Value Called To Michelle hooker rn Crit Value Called By [facility] Blood Gas Notified Time [id number] Potassium Carbon Dioxide Anion Gap BUN Creatinine Est GFR ( Amer) Est GFR (Non-Af Amer) POC Glucose (mg/dL) Random Glucose Hemoglobin A1c Serum Osmolality Lactic Acid Calcium Phosphorus Magnesium Total Bilirubin AST ALT Alkaline Phosphatase Ammonia Lactate Dehydrogenase Total Creatine Kinase Troponin I 0.07 Total Protein Albumin Globulin Albumin/Globulin Ratio Triglycerides Cholesterol LDL Cholesterol Direct HDL Cholesterol Free T4 TSH 3rd Generation Arterial Blood Potassium 5.3 H Venous Blood Potassium 5.6 H Urine Color Urine Appearance Urine pH Ur Specific [place] Urine Protein Urine Glucose (UA) Urine Ketones Urine Blood Urine Nitrate Urine Bilirubin Urine Urobilinogen Ur Leukocyte Esterase Ur Random Creatinine U Random Total Protein Ur Random Sodium Digoxin Salicylates Urine Opiates Screen Urine Methadone Screen Acetaminophen Ur Barbiturates Screen Ur Phencyclidine Scrn Ur Amphetamines Screen U Benzodiazepines Scrn U Oth Cocaine Metabols U Cannabinoids Screen Alcohol, Quantitative 03/29/18 03/29/18 03/29/18 14:52 15:15 15:30 WBC 6.8 RBC 4.72 Hgb 13.4 L Hct 40.9 L MCV 86.7 MCH 28.4 MCHC 32.8 RDW 17.6 H Plt Count 242 MPV 9.8 Neut % (Auto) 76.0 H Lymph % (Auto) 16.7 L [place] % (Auto) 6.5 H Eos % (Auto) 0.1 L Baso % (Auto) 0.7 Lymph # (Auto) 1.1 L [place] # (Auto) 0.4 Eos # (Auto) 0.0 Baso # (Auto) 0.05 Absolute Neuts (auto) 5.12 PT INR APTT pCO2 pO2 HCO3 ABG pH ABG Total CO2 ABG O2 Saturation ABG O2 Content ABG Base Excess ABG Hemoglobin ABG Carboxyhemoglobin POC ABG HHb (Measured) ABG Methemoglobin ABG O2 Capacity ABG Potassium VBG pH VBG pCO2 VBG HCO3 VBG Total CO2 VBG O2 Sat (Calc) VBG Base Excess VBG Potassium Hgb O2 Saturation Sodium 134 Chloride 98 Glucose Lactate FiO2 Crit Value Called To Crit Value Called By Blood Gas Notified Time Potassium 6.0 H* Carbon Dioxide 13 L Anion Gap 29 H BUN 64 H Creatinine 3.6 H Est GFR ( Amer) 20 Est GFR (Non-Af Amer) 17 POC Glucose (mg/dL) 250 H Random Glucose 197 H Hemoglobin A1c Serum Osmolality Lactic Acid Calcium 8.4 Phosphorus 7.8 H Magnesium 2.5 H Total Bilirubin 1.2 AST 49 ALT 15 Alkaline Phosphatase 77 Ammonia Lactate Dehydrogenase Total Creatine Kinase Troponin I Total Protein 7.2 Albumin 4.0 Globulin 3.2 Albumin/Globulin Ratio 1.2 Triglycerides Cholesterol LDL Cholesterol Direct HDL Cholesterol Free T4 TSH 3rd Generation Arterial Blood Potassium Venous Blood Potassium Urine Color Urine Appearance Urine pH Ur Specific [place] Urine Protein Urine Glucose (UA) Urine Ketones Urine Blood Urine Nitrate Urine Bilirubin Urine Urobilinogen Ur Leukocyte Esterase Ur Random Creatinine U Random Total Protein Ur Random Sodium Digoxin Salicylates Urine Opiates Screen Urine Methadone Screen Acetaminophen Ur Barbiturates Screen Ur Phencyclidine Scrn Ur Amphetamines Screen U Benzodiazepines Scrn U Oth Cocaine Metabols U Cannabinoids Screen Alcohol, Quantitative 03/29/18 03/29/18 03/29/18 15:30 15:30 15:40 WBC RBC Hgb Hct MCV MCH MCHC RDW Plt Count MPV Neut % (Auto) Lymph % (Auto) [place] % (Auto) Eos % (Auto) Baso % (Auto) Lymph # (Auto) [place] # (Auto) Eos # (Auto) Baso # (Auto) Absolute Neuts (auto) PT 158.9 H INR 14.32 H* APTT 76.4 H pCO2 pO2 HCO3 ABG pH ABG Total CO2 ABG O2 Saturation ABG O2 Content ABG Base Excess ABG Hemoglobin ABG Carboxyhemoglobin POC ABG HHb (Measured) ABG Methemoglobin ABG O2 Capacity ABG Potassium VBG pH VBG pCO2 VBG HCO3 VBG Total CO2 VBG O2 Sat (Calc) VBG Base Excess VBG Potassium Hgb O2 Saturation Sodium Chloride Glucose Lactate FiO2 Crit Value Called To Crit Value Called By Blood Gas Notified Time Potassium Carbon Dioxide Anion Gap BUN Creatinine Est GFR ( Amer) Est GFR (Non-Af Amer) POC Glucose (mg/dL) Random Glucose Hemoglobin A1c Serum Osmolality Lactic Acid 8.9 H* Calcium Phosphorus Magnesium Total Bilirubin AST ALT Alkaline Phosphatase Ammonia Lactate Dehydrogenase 524 Total Creatine Kinase 181 Troponin I Total Protein Albumin Globulin Albumin/Globulin Ratio Triglycerides Cholesterol LDL Cholesterol Direct HDL Cholesterol Free T4 TSH 3rd Generation Arterial Blood Potassium Venous Blood Potassium Urine Color Urine Appearance Urine pH Ur Specific [place] Urine Protein Urine Glucose (UA) Urine Ketones Urine Blood Urine Nitrate Urine Bilirubin Urine Urobilinogen Ur Leukocyte Esterase Ur Random Creatinine U Random Total Protein Ur Random Sodium Digoxin Salicylates Urine Opiates Screen Urine Methadone Screen Acetaminophen Ur Barbiturates Screen Ur Phencyclidine Scrn Ur Amphetamines Screen U Benzodiazepines Scrn U Oth Cocaine Metabols U Cannabinoids Screen Alcohol, Quantitative 03/29/18 03/29/18 03/29/18 16:27 17:20 17:30 WBC RBC Hgb Hct MCV MCH MCHC RDW Plt Count MPV Neut % (Auto) Lymph % (Auto) [place] % (Auto) Eos % (Auto) Baso % (Auto) Lymph # (Auto) [place] # (Auto) Eos # (Auto) Baso # (Auto) Absolute Neuts (auto) PT INR APTT pCO2 pO2 HCO3 ABG pH ABG Total CO2 ABG O2 Saturation ABG O2 Content ABG Base Excess ABG Hemoglobin ABG Carboxyhemoglobin POC ABG HHb (Measured) ABG Methemoglobin ABG O2 Capacity ABG Potassium VBG pH VBG pCO2 VBG HCO3 VBG Total CO2 VBG O2 Sat (Calc) VBG Base Excess VBG Potassium Hgb O2 Saturation Sodium Chloride Glucose Lactate FiO2 Crit Value Called To Crit Value Called By Blood Gas Notified Time Potassium Carbon Dioxide Anion Gap BUN Creatinine Est GFR ( Amer) Est GFR (Non-Af Amer) POC Glucose (mg/dL) Random Glucose Hemoglobin A1c Serum Osmolality Lactic Acid Calcium Phosphorus Magnesium Total Bilirubin AST ALT Alkaline Phosphatase Ammonia Lactate Dehydrogenase Total Creatine Kinase Troponin I Total Protein Albumin Globulin Albumin/Globulin Ratio Triglycerides Cholesterol LDL Cholesterol Direct HDL Cholesterol Free T4 TSH 3rd Generation Arterial Blood Potassium Venous Blood Potassium Urine Color Yellow Urine Appearance Clear Urine pH 5.5 Ur Specific [place] >= 1.030 Urine Protein Negative Urine Glucose (UA) Negative Urine Ketones Negative Urine Blood Negative Urine Nitrate Negative Urine Bilirubin Negative Urine Urobilinogen 0.2 Ur Leukocyte Esterase Negative Ur Random Creatinine U Random Total Protein 14 Ur Random Sodium Digoxin < 0.4 L Salicylates Urine Opiates Screen Urine Methadone Screen Acetaminophen Ur Barbiturates Screen Ur Phencyclidine Scrn Ur Amphetamines Screen U Benzodiazepines Scrn U Oth Cocaine Metabols U Cannabinoids Screen Alcohol, Quantitative 03/29/18 03/29/18 03/29/18 17:30 18:30 18:30 WBC RBC Hgb Hct MCV MCH MCHC RDW Plt Count MPV Neut % (Auto) Lymph % (Auto) [place] % (Auto) Eos % (Auto) Baso % (Auto) Lymph # (Auto) [place] # (Auto) Eos # (Auto) Baso # (Auto) Absolute Neuts (auto) PT INR APTT pCO2 pO2 HCO3 ABG pH ABG Total CO2 ABG O2 Saturation ABG O2 Content ABG Base Excess ABG Hemoglobin ABG Carboxyhemoglobin POC ABG HHb (Measured) ABG Methemoglobin ABG O2 Capacity ABG Potassium VBG pH VBG pCO2 VBG HCO3 VBG Total CO2 VBG O2 Sat (Calc) VBG Base Excess VBG Potassium Hgb O2 Saturation Sodium 136 Chloride 102 Glucose Lactate FiO2 Crit Value Called To Crit Value Called By Blood Gas Notified Time Potassium 5.5 H Carbon Dioxide 13 L Anion Gap 26 H BUN 63 H Creatinine 3.7 H Est GFR ( Amer) 20 Est GFR (Non-Af Amer) 16 POC Glucose (mg/dL) Random Glucose 110 Hemoglobin A1c Serum Osmolality Lactic Acid 10.0 H* Calcium 8.3 L Phosphorus 7.1 H Magnesium 2.4 H Total Bilirubin 1.2 AST 126 H D ALT 27 Alkaline Phosphatase 73 Ammonia Lactate Dehydrogenase Total Creatine Kinase Troponin I Total Protein 6.9 Albumin 3.9 Globulin 3.1 Albumin/Globulin Ratio 1.3 Triglycerides Cholesterol LDL Cholesterol Direct HDL Cholesterol Free T4 TSH 3rd Generation Arterial Blood Potassium Venous Blood Potassium Urine Color Urine Appearance Urine pH Ur Specific [place] Urine Protein Urine Glucose (UA) Urine Ketones Urine Blood Urine Nitrate Urine Bilirubin Urine Urobilinogen Ur Leukocyte Esterase Ur Random Creatinine U Random Total Protein Ur Random Sodium Digoxin Salicylates Urine Opiates Screen Negative Urine Methadone Screen Negative Acetaminophen Ur Barbiturates Screen Negative Ur Phencyclidine Scrn Negative Ur Amphetamines Screen Negative U Benzodiazepines Scrn Negative U Oth Cocaine Metabols Negative U Cannabinoids Screen Negative Alcohol, Quantitative 03/29/18 03/29/18 03/29/18 18:30 18:50 21:53 WBC RBC Hgb Hct MCV MCH MCHC RDW Plt Count MPV Neut % (Auto) Lymph % (Auto) [place] % (Auto) Eos % (Auto) Baso % (Auto) Lymph # (Auto) [place] # (Auto) Eos # (Auto) Baso # (Auto) Absolute Neuts (auto) PT INR APTT pCO2 pO2 173 H HCO3 ABG pH ABG Total CO2 ABG O2 Saturation ABG O2 Content ABG Base Excess ABG Hemoglobin ABG Carboxyhemoglobin POC ABG HHb (Measured) ABG Methemoglobin ABG O2 Capacity ABG Potassium VBG pH 7.25 L VBG pCO2 30.0 L VBG HCO3 13.2 L VBG Total CO2 14.1 L VBG O2 Sat (Calc) 97.2 H VBG Base Excess -12.7 L VBG Potassium 6.6 H* Hgb O2 Saturation Sodium 131.0 L Chloride 96.0 L Glucose 189 H Lactate 11.4 H* FiO2 21.0 Crit Value Called To Aimee giraldo Crit Value Called By Atc Blood Gas Notified Time 1900 Potassium Carbon Dioxide Anion Gap BUN Creatinine Est GFR ( Amer) Est GFR (Non-Af Amer) POC Glucose (mg/dL) 82 Random Glucose Hemoglobin A1c Serum Osmolality Lactic Acid Calcium Phosphorus Magnesium Total Bilirubin AST ALT Alkaline Phosphatase Ammonia Lactate Dehydrogenase Total Creatine Kinase Troponin I Total Protein Albumin Globulin Albumin/Globulin Ratio Triglycerides Cholesterol LDL Cholesterol Direct HDL Cholesterol Free T4 TSH 3rd Generation Arterial Blood Potassium Venous Blood Potassium 6.6 H* Urine Color Urine Appearance Urine pH Ur Specific [place] Urine Protein Urine Glucose (UA) Urine Ketones Urine Blood Urine Nitrate Urine Bilirubin Urine Urobilinogen Ur Leukocyte Esterase Ur Random Creatinine 150 U Random Total Protein Ur Random Sodium < 5 Digoxin Salicylates Urine Opiates Screen Urine Methadone Screen Acetaminophen Ur Barbiturates Screen Ur Phencyclidine Scrn Ur Amphetamines Screen U Benzodiazepines Scrn U Oth Cocaine Metabols U Cannabinoids Screen Alcohol, Quantitative 03/29/18 03/29/18 03/29/18 22:30 22:30 22:30 WBC RBC Hgb Hct MCV MCH MCHC RDW Plt Count MPV Neut % (Auto) Lymph % (Auto) [place] % (Auto) Eos % (Auto) Baso % (Auto) Lymph # (Auto) [place] # (Auto) Eos # (Auto) Baso # (Auto) Absolute Neuts (auto) PT INR APTT pCO2 pO2 HCO3 ABG pH ABG Total CO2 ABG O2 Saturation ABG O2 Content ABG Base Excess ABG Hemoglobin ABG Carboxyhemoglobin POC ABG HHb (Measured) ABG Methemoglobin ABG O2 Capacity ABG Potassium VBG pH VBG pCO2 VBG HCO3 VBG Total CO2 VBG O2 Sat (Calc) VBG Base Excess VBG Potassium Hgb O2 Saturation Sodium Chloride Glucose Lactate FiO2 Crit Value Called To Crit Value Called By Blood Gas Notified Time Potassium Carbon Dioxide Anion Gap BUN Creatinine Est GFR ( Amer) Est GFR (Non-Af Amer) POC Glucose (mg/dL) Random Glucose Hemoglobin A1c Serum Osmolality 308 H Lactic Acid Calcium Phosphorus Magnesium Total Bilirubin AST ALT Alkaline Phosphatase Ammonia Lactate Dehydrogenase Total Creatine Kinase Troponin I Total Protein Albumin Globulin Albumin/Globulin Ratio Triglycerides Cholesterol LDL Cholesterol Direct HDL Cholesterol Free T4 TSH 3rd Generation Arterial Blood Potassium Venous Blood Potassium Urine Color Urine Appearance Urine pH Ur Specific [place] Urine Protein Urine Glucose (UA) Urine Ketones Urine Blood Urine Nitrate Urine Bilirubin Urine Urobilinogen Ur Leukocyte Esterase Ur Random Creatinine U Random Total Protein Ur Random Sodium Digoxin Salicylates < 1 L Urine Opiates Screen Urine Methadone Screen Acetaminophen < 10.0 L Ur Barbiturates Screen Ur Phencyclidine Scrn Ur Amphetamines Screen U Benzodiazepines Scrn U Oth Cocaine Metabols U Cannabinoids Screen Alcohol, Quantitative < 10 03/30/18 03/30/18 03/30/18 05:15 06:00 06:00 WBC 12.9 H D RBC 4.72 Hgb 13.3 L Hct 41.3 L MCV 87.5 MCH 28.2 MCHC 32.2 RDW 18.1 H Plt Count 179 MPV 10.7 Neut % (Auto) 83.8 H Lymph % (Auto) 5.3 L [place] % (Auto) 10.8 H Eos % (Auto) 0.0 L Baso % (Auto) 0.1 Lymph # (Auto) 0.7 L [place] # (Auto) 1.4 H Eos # (Auto) 0.0 Baso # (Auto) 0.01 Absolute Neuts (auto) 10.81 H PT INR APTT pCO2 25 L pO2 63.0 L HCO3 12.9 L ABG pH 7.32 L ABG Total CO2 13.7 L ABG O2 Saturation 91.1 L ABG O2 Content 17.0 ABG Base Excess -11.4 L ABG Hemoglobin 13.4 ABG Carboxyhemoglobin 0.8 POC ABG HHb (Measured) 8.8 H ABG Methemoglobin 0.1 ABG O2 Capacity 18.7 ABG Potassium VBG pH VBG pCO2 VBG HCO3 VBG Total CO2 VBG O2 Sat (Calc) VBG Base Excess VBG Potassium Hgb O2 Saturation 90.3 L Sodium 140 Chloride 100 Glucose Lactate FiO2 40.0 Crit Value Called To Crit Value Called By Blood Gas Notified Time Potassium 6.2 H* Carbon Dioxide 16 L Anion Gap 30 H BUN 67 H Creatinine 4.3 H Est GFR ( Amer) 17 Est GFR (Non-Af Amer) 14 POC Glucose (mg/dL) Random Glucose 51 L Hemoglobin A1c Serum Osmolality Lactic Acid Calcium 8.4 Phosphorus 7.9 H Magnesium 2.3 H Total Bilirubin 2.7 H AST 3530 H ALT 928 H Alkaline Phosphatase 101 Ammonia Lactate Dehydrogenase Total Creatine Kinase Troponin I Total Protein 7.7 Albumin 4.3 Globulin 3.4 Albumin/Globulin Ratio 1.3 Triglycerides Cholesterol LDL Cholesterol Direct HDL Cholesterol Free T4 TSH 3rd Generation Arterial Blood Potassium Venous Blood Potassium Urine Color Urine Appearance Urine pH Ur Specific [place] Urine Protein Urine Glucose (UA) Urine Ketones Urine Blood Urine Nitrate Urine Bilirubin Urine Urobilinogen Ur Leukocyte Esterase Ur Random Creatinine U Random Total Protein Ur Random Sodium Digoxin Salicylates Urine Opiates Screen Urine Methadone Screen Acetaminophen Ur Barbiturates Screen Ur Phencyclidine Scrn Ur Amphetamines Screen U Benzodiazepines Scrn U Oth Cocaine Metabols U Cannabinoids Screen Alcohol, Quantitative 03/30/18 03/30/18 03/30/18 06:00 06:00 06:00 WBC RBC Hgb Hct MCV MCH MCHC RDW Plt Count MPV Neut % (Auto) Lymph % (Auto) [place] % (Auto) Eos % (Auto) Baso % (Auto) Lymph # (Auto) [place] # (Auto) Eos # (Auto) Baso # (Auto) Absolute Neuts (auto) PT 29.0 H INR 2.57 APTT pCO2 pO2 HCO3 ABG pH ABG Total CO2 ABG O2 Saturation ABG O2 Content ABG Base Excess ABG Hemoglobin ABG Carboxyhemoglobin POC ABG HHb (Measured) ABG Methemoglobin ABG O2 Capacity ABG Potassium VBG pH VBG pCO2 VBG HCO3 VBG Total CO2 VBG O2 Sat (Calc) VBG Base Excess VBG Potassium Hgb O2 Saturation Sodium Chloride Glucose Lactate FiO2 Crit Value Called To Crit Value Called By Blood Gas Notified Time Potassium Carbon Dioxide Anion Gap BUN Creatinine Est GFR ( Amer) Est GFR (Non-Af Amer) POC Glucose (mg/dL) Random Glucose Hemoglobin A1c Serum Osmolality Lactic Acid 10.1 H* Calcium Phosphorus Magnesium Total Bilirubin AST ALT Alkaline Phosphatase Ammonia Lactate Dehydrogenase Total Creatine Kinase Troponin I Total Protein Albumin Globulin Albumin/Globulin Ratio Triglycerides 108 Cholesterol 120 L LDL Cholesterol Direct 78 HDL Cholesterol 24 L Free T4 TSH 3rd Generation Arterial Blood Potassium Venous Blood Potassium Urine Color Urine Appearance Urine pH Ur Specific [place] Urine Protein Urine Glucose (UA) Urine Ketones Urine Blood Urine Nitrate Urine Bilirubin Urine Urobilinogen Ur Leukocyte Esterase Ur Random Creatinine U Random Total Protein Ur Random Sodium Digoxin Salicylates Urine Opiates Screen Urine Methadone Screen Acetaminophen Ur Barbiturates Screen Ur Phencyclidine Scrn Ur Amphetamines Screen U Benzodiazepines Scrn U Oth Cocaine Metabols U Cannabinoids Screen Alcohol, Quantitative 03/30/18 03/30/18 07:49 09:00 WBC RBC Hgb Hct MCV MCH MCHC RDW Plt Count MPV Neut % (Auto) Lymph % (Auto) [place] % (Auto) Eos % (Auto) Baso % (Auto) Lymph # (Auto) [place] # (Auto) Eos # (Auto) Baso # (Auto) Absolute Neuts (auto) PT INR APTT pCO2 pO2 HCO3 ABG pH ABG Total CO2 ABG O2 Saturation ABG O2 Content ABG Base Excess ABG Hemoglobin ABG Carboxyhemoglobin POC ABG HHb (Measured) ABG Methemoglobin ABG O2 Capacity ABG Potassium VBG pH VBG pCO2 VBG HCO3 VBG Total CO2 VBG O2 Sat (Calc) VBG Base Excess VBG Potassium Hgb O2 Saturation Sodium Chloride Glucose Lactate FiO2 Crit Value Called To Crit Value Called By Blood Gas Notified Time Potassium Carbon Dioxide Anion Gap BUN Creatinine Est GFR ( Amer) Est GFR (Non-Af Amer) POC Glucose (mg/dL) 153 H Random Glucose Hemoglobin A1c Serum Osmolality Lactic Acid Calcium Phosphorus Magnesium Total Bilirubin AST ALT Alkaline Phosphatase Ammonia 78 H Lactate Dehydrogenase Total Creatine Kinase Troponin I Total Protein Albumin Globulin Albumin/Globulin Ratio Triglycerides Cholesterol LDL Cholesterol Direct HDL Cholesterol Free T4 TSH 3rd Generation Arterial Blood Potassium Venous Blood Potassium Urine Color Urine Appearance Urine pH Ur Specific [place] Urine Protein Urine Glucose (UA) Urine Ketones Urine Blood Urine Nitrate Urine Bilirubin Urine Urobilinogen Ur Leukocyte Esterase Ur Random Creatinine U Random Total Protein Ur Random Sodium Digoxin Salicylates Urine Opiates Screen Urine Methadone Screen Acetaminophen Ur Barbiturates Screen Ur Phencyclidine Scrn Ur Amphetamines Screen U Benzodiazepines Scrn U Oth Cocaine Metabols U Cannabinoids Screen Alcohol, Quantitative Assessment & Plan - Assessment and Plan (Free Text) Plan: Cardiogenic shock HUGO Ischemic hepatitis Lactic acidosis Elevated INR Hyperkalemia Hx of CHF Hx of CAD s/p CABG Hx of HTN Hx of a-fib Hx of Gout Plan Echocardiogram reviewed Chest x-ray reviewed CT abdomen/pelvis reviewed INR normalized after FFP given Renal US reviewed Continue Merrem Will give 1 dose of Vancomycin Blood culture negative Poor prognosis Continue to monitor closely Toño, PGY-3 <Oswaldo Joya - Last Filed: 03/30/18 15:53> Results - Vital Signs Recent Vital Signs: Last Vital Signs Temp 97.3 F L 03/30/18 06:00 Pulse 99 H 03/30/18 10:00 Resp 19 03/29/18 12:00 BP 88/60 L 03/29/18 17:43 Pulse Ox 93 L 03/29/18 06:00 - Labs Result Diagrams: 03/30/18 06:00 03/30/18 06:00 Labs: Laboratory Results - last 24 hr 03/29/18 03/29/18 03/29/18 15:30 15:30 15:30 WBC RBC Hgb Hct MCV MCH MCHC RDW Plt Count MPV Neut % (Auto) Lymph % (Auto) [place] % (Auto) Eos % (Auto) Baso % (Auto) Lymph # (Auto) [place] # (Auto) Eos # (Auto) Baso # (Auto) Absolute Neuts (auto) PT 158.9 H INR 14.32 H* APTT 76.4 H pCO2 pO2 HCO3 ABG pH ABG Total CO2 ABG O2 Saturation ABG O2 Content ABG Base Excess ABG Hemoglobin ABG Carboxyhemoglobin POC ABG HHb (Measured) ABG Methemoglobin ABG O2 Capacity VBG pH VBG pCO2 VBG HCO3 VBG Total CO2 VBG O2 Sat (Calc) VBG Base Excess VBG Potassium Hgb O2 Saturation Glucose Lactate FiO2 Crit Value Called To Crit Value Called By Blood Gas Notified Time Sodium 134 Potassium 6.0 H* Chloride 98 Carbon Dioxide 13 L Anion Gap 29 H BUN 64 H Creatinine 3.6 H Est GFR ( Amer) 20 Est GFR (Non-Af Amer) 17 POC Glucose (mg/dL) Random Glucose 197 H Serum Osmolality Lactic Acid 8.9 H* Calcium 8.4 Phosphorus 7.8 H Magnesium 2.5 H Total Bilirubin 1.2 AST 49 ALT 15 Alkaline Phosphatase 77 Ammonia Lactate Dehydrogenase Total Creatine Kinase Total Protein 7.2 Albumin 4.0 Globulin 3.2 Albumin/Globulin Ratio 1.2 Triglycerides Cholesterol LDL Cholesterol Direct HDL Cholesterol Venous Blood Potassium Urine Color Urine Appearance Urine pH Ur Specific [place] Urine Protein Urine Glucose (UA) Urine Ketones Urine Blood Urine Nitrate Urine Bilirubin Urine Urobilinogen Ur Leukocyte Esterase Ur Random Creatinine U Random Total Protein Ur Random Sodium Digoxin Salicylates Urine Opiates Screen Urine Methadone Screen Acetaminophen Ur Barbiturates Screen Ur Phencyclidine Scrn Ur Amphetamines Screen U Benzodiazepines Scrn U Oth Cocaine Metabols U Cannabinoids Screen Alcohol, Quantitative 03/29/18 03/29/18 03/29/18 15:40 16:27 17:20 WBC RBC Hgb Hct MCV MCH MCHC RDW Plt Count MPV Neut % (Auto) Lymph % (Auto) [place] % (Auto) Eos % (Auto) Baso % (Auto) Lymph # (Auto) [place] # (Auto) Eos # (Auto) Baso # (Auto) Absolute Neuts (auto) PT INR APTT pCO2 pO2 HCO3 ABG pH ABG Total CO2 ABG O2 Saturation ABG O2 Content ABG Base Excess ABG Hemoglobin ABG Carboxyhemoglobin POC ABG HHb (Measured) ABG Methemoglobin ABG O2 Capacity VBG pH VBG pCO2 VBG HCO3 VBG Total CO2 VBG O2 Sat (Calc) VBG Base Excess VBG Potassium Hgb O2 Saturation Glucose Lactate FiO2 Crit Value Called To Crit Value Called By Blood Gas Notified Time Sodium Potassium Chloride Carbon Dioxide Anion Gap BUN Creatinine Est GFR ( Amer) Est GFR (Non-Af Amer) POC Glucose (mg/dL) Random Glucose Serum Osmolality Lactic Acid Calcium Phosphorus Magnesium Total Bilirubin AST ALT Alkaline Phosphatase Ammonia Lactate Dehydrogenase 524 Total Creatine Kinase 181 Total Protein Albumin Globulin Albumin/Globulin Ratio Triglycerides Cholesterol LDL Cholesterol Direct HDL Cholesterol Venous Blood Potassium Urine Color Yellow Urine Appearance Clear Urine pH 5.5 Ur Specific [place] >= 1.030 Urine Protein Negative Urine Glucose (UA) Negative Urine Ketones Negative Urine Blood Negative Urine Nitrate Negative Urine Bilirubin Negative Urine Urobilinogen 0.2 Ur Leukocyte Esterase Negative Ur Random Creatinine U Random Total Protein Ur Random Sodium Digoxin < 0.4 L Salicylates Urine Opiates Screen Urine Methadone Screen Acetaminophen Ur Barbiturates Screen Ur Phencyclidine Scrn Ur Amphetamines Screen U Benzodiazepines Scrn U Oth Cocaine Metabols U Cannabinoids Screen Alcohol, Quantitative 03/29/18 03/29/18 03/29/18 17:30 17:30 18:30 WBC RBC Hgb Hct MCV MCH MCHC RDW Plt Count MPV Neut % (Auto) Lymph % (Auto) [place] % (Auto) Eos % (Auto) Baso % (Auto) Lymph # (Auto) [place] # (Auto) Eos # (Auto) Baso # (Auto) Absolute Neuts (auto) PT INR APTT pCO2 pO2 HCO3 ABG pH ABG Total CO2 ABG O2 Saturation ABG O2 Content ABG Base Excess ABG Hemoglobin ABG Carboxyhemoglobin POC ABG HHb (Measured) ABG Methemoglobin ABG O2 Capacity VBG pH VBG pCO2 VBG HCO3 VBG Total CO2 VBG O2 Sat (Calc) VBG Base Excess VBG Potassium Hgb O2 Saturation Glucose Lactate FiO2 Crit Value Called To Crit Value Called By Blood Gas Notified Time Sodium 136 Potassium 5.5 H Chloride 102 Carbon Dioxide 13 L Anion Gap 26 H BUN 63 H Creatinine 3.7 H Est GFR ( Amer) 20 Est GFR (Non-Af Amer) 16 POC Glucose (mg/dL) Random Glucose 110 Serum Osmolality Lactic Acid Calcium 8.3 L Phosphorus 7.1 H Magnesium 2.4 H Total Bilirubin 1.2 AST 126 H D ALT 27 Alkaline Phosphatase 73 Ammonia Lactate Dehydrogenase Total Creatine Kinase Total Protein 6.9 Albumin 3.9 Globulin 3.1 Albumin/Globulin Ratio 1.3 Triglycerides Cholesterol LDL Cholesterol Direct HDL Cholesterol Venous Blood Potassium Urine Color Urine Appearance Urine pH Ur Specific [place] Urine Protein Urine Glucose (UA) Urine Ketones Urine Blood Urine Nitrate Urine Bilirubin Urine Urobilinogen Ur Leukocyte Esterase Ur Random Creatinine U Random Total Protein 14 Ur Random Sodium Digoxin Salicylates Urine Opiates Screen Negative Urine Methadone Screen Negative Acetaminophen Ur Barbiturates Screen Negative Ur Phencyclidine Scrn Negative Ur Amphetamines Screen Negative U Benzodiazepines Scrn Negative U Oth Cocaine Metabols Negative U Cannabinoids Screen Negative Alcohol, Quantitative 03/29/18 03/29/18 03/29/18 18:30 18:30 18:50 WBC RBC Hgb Hct MCV MCH MCHC RDW Plt Count MPV Neut % (Auto) Lymph % (Auto) [place] % (Auto) Eos % (Auto) Baso % (Auto) Lymph # (Auto) [place] # (Auto) Eos # (Auto) Baso # (Auto) Absolute Neuts (auto) PT INR APTT pCO2 pO2 173 H HCO3 ABG pH ABG Total CO2 ABG O2 Saturation ABG O2 Content ABG Base Excess ABG Hemoglobin ABG Carboxyhemoglobin POC ABG HHb (Measured) ABG Methemoglobin ABG O2 Capacity VBG pH 7.25 L VBG pCO2 30.0 L VBG HCO3 13.2 L VBG Total CO2 14.1 L VBG O2 Sat (Calc) 97.2 H VBG Base Excess -12.7 L VBG Potassium 6.6 H* Hgb O2 Saturation Glucose 189 H Lactate 11.4 H* FiO2 21.0 Crit Value Called To Aimee giraldo Crit Value Called By Atc Blood Gas Notified Time 1900 Sodium 131.0 L Potassium Chloride 96.0 L Carbon Dioxide Anion Gap BUN Creatinine Est GFR ( Amer) Est GFR (Non-Af Amer) POC Glucose (mg/dL) Random Glucose Serum Osmolality Lactic Acid 10.0 H* Calcium Phosphorus Magnesium Total Bilirubin AST ALT Alkaline Phosphatase Ammonia Lactate Dehydrogenase Total Creatine Kinase Total Protein Albumin Globulin Albumin/Globulin Ratio Triglycerides Cholesterol LDL Cholesterol Direct HDL Cholesterol Venous Blood Potassium 6.6 H* Urine Color Urine Appearance Urine pH Ur Specific [place] Urine Protein Urine Glucose (UA) Urine Ketones Urine Blood Urine Nitrate Urine Bilirubin Urine Urobilinogen Ur Leukocyte Esterase Ur Random Creatinine 150 U Random Total Protein Ur Random Sodium < 5 Digoxin Salicylates Urine Opiates Screen Urine Methadone Screen Acetaminophen Ur Barbiturates Screen Ur Phencyclidine Scrn Ur Amphetamines Screen U Benzodiazepines Scrn U Oth Cocaine Metabols U Cannabinoids Screen Alcohol, Quantitative 03/29/18 03/29/18 03/29/18 21:53 22:30 22:30 WBC RBC Hgb Hct MCV MCH MCHC RDW Plt Count MPV Neut % (Auto) Lymph % (Auto) [place] % (Auto) Eos % (Auto) Baso % (Auto) Lymph # (Auto) [place] # (Auto) Eos # (Auto) Baso # (Auto) Absolute Neuts (auto) PT INR APTT pCO2 pO2 HCO3 ABG pH ABG Total CO2 ABG O2 Saturation ABG O2 Content ABG Base Excess ABG Hemoglobin ABG Carboxyhemoglobin POC ABG HHb (Measured) ABG Methemoglobin ABG O2 Capacity VBG pH VBG pCO2 VBG HCO3 VBG Total CO2 VBG O2 Sat (Calc) VBG Base Excess VBG Potassium Hgb O2 Saturation Glucose Lactate FiO2 Crit Value Called To Crit Value Called By Blood Gas Notified Time Sodium Potassium Chloride Carbon Dioxide Anion Gap BUN Creatinine Est GFR ( Amer) Est GFR (Non-Af Amer) POC Glucose (mg/dL) 82 Random Glucose Serum Osmolality 308 H Lactic Acid Calcium Phosphorus Magnesium Total Bilirubin AST ALT Alkaline Phosphatase Ammonia Lactate Dehydrogenase Total Creatine Kinase Total Protein Albumin Globulin Albumin/Globulin Ratio Triglycerides Cholesterol LDL Cholesterol Direct HDL Cholesterol Venous Blood Potassium Urine Color Urine Appearance Urine pH Ur Specific [place] Urine Protein Urine Glucose (UA) Urine Ketones Urine Blood Urine Nitrate Urine Bilirubin Urine Urobilinogen Ur Leukocyte Esterase Ur Random Creatinine U Random Total Protein Ur Random Sodium Digoxin Salicylates Urine Opiates Screen Urine Methadone Screen Acetaminophen Ur Barbiturates Screen Ur Phencyclidine Scrn Ur Amphetamines Screen U Benzodiazepines Scrn U Oth Cocaine Metabols U Cannabinoids Screen Alcohol, Quantitative < 10 03/29/18 03/30/18 03/30/18 22:30 05:15 06:00 WBC 12.9 H D RBC 4.72 Hgb 13.3 L Hct 41.3 L MCV 87.5 MCH 28.2 MCHC 32.2 RDW 18.1 H Plt Count 179 MPV 10.7 Neut % (Auto) 83.8 H Lymph % (Auto) 5.3 L [place] % (Auto) 10.8 H Eos % (Auto) 0.0 L Baso % (Auto) 0.1 Lymph # (Auto) 0.7 L [place] # (Auto) 1.4 H Eos # (Auto) 0.0 Baso # (Auto) 0.01 Absolute Neuts (auto) 10.81 H PT INR APTT pCO2 25 L pO2 63.0 L HCO3 12.9 L ABG pH 7.32 L ABG Total CO2 13.7 L ABG O2 Saturation 91.1 L ABG O2 Content 17.0 ABG Base Excess -11.4 L ABG Hemoglobin 13.4 ABG Carboxyhemoglobin 0.8 POC ABG HHb (Measured) 8.8 H ABG Methemoglobin 0.1 ABG O2 Capacity 18.7 VBG pH VBG pCO2 VBG HCO3 VBG Total CO2 VBG O2 Sat (Calc) VBG Base Excess VBG Potassium Hgb O2 Saturation 90.3 L Glucose Lactate FiO2 40.0 Crit Value Called To Crit Value Called By Blood Gas Notified Time Sodium Potassium Chloride Carbon Dioxide Anion Gap BUN Creatinine Est GFR ( Amer) Est GFR (Non-Af Amer) POC Glucose (mg/dL) Random Glucose Serum Osmolality Lactic Acid Calcium Phosphorus Magnesium Total Bilirubin AST ALT Alkaline Phosphatase Ammonia Lactate Dehydrogenase Total Creatine Kinase Total Protein Albumin Globulin Albumin/Globulin Ratio Triglycerides Cholesterol LDL Cholesterol Direct HDL Cholesterol Venous Blood Potassium Urine Color Urine Appearance Urine pH Ur Specific [place] Urine Protein Urine Glucose (UA) Urine Ketones Urine Blood Urine Nitrate Urine Bilirubin Urine Urobilinogen Ur Leukocyte Esterase Ur Random Creatinine U Random Total Protein Ur Random Sodium Digoxin Salicylates < 1 L Urine Opiates Screen Urine Methadone Screen Acetaminophen < 10.0 L Ur Barbiturates Screen Ur Phencyclidine Scrn Ur Amphetamines Screen U Benzodiazepines Scrn U Oth Cocaine Metabols U Cannabinoids Screen Alcohol, Quantitative 03/30/18 03/30/18 03/30/18 06:00 06:00 06:00 WBC RBC Hgb Hct MCV MCH MCHC RDW Plt Count MPV Neut % (Auto) Lymph % (Auto) [place] % (Auto) Eos % (Auto) Baso % (Auto) Lymph # (Auto) [place] # (Auto) Eos # (Auto) Baso # (Auto) Absolute Neuts (auto) PT 29.0 H INR 2.57 APTT pCO2 pO2 HCO3 ABG pH ABG Total CO2 ABG O2 Saturation ABG O2 Content ABG Base Excess ABG Hemoglobin ABG Carboxyhemoglobin POC ABG HHb (Measured) ABG Methemoglobin ABG O2 Capacity VBG pH VBG pCO2 VBG HCO3 VBG Total CO2 VBG O2 Sat (Calc) VBG Base Excess VBG Potassium Hgb O2 Saturation Glucose Lactate FiO2 Crit Value Called To Crit Value Called By Blood Gas Notified Time Sodium 140 Potassium 6.2 H* Chloride 100 Carbon Dioxide 16 L Anion Gap 30 H BUN 67 H Creatinine 4.3 H Est GFR ( Amer) 17 Est GFR (Non-Af Amer) 14 POC Glucose (mg/dL) Random Glucose 51 L Serum Osmolality Lactic Acid Calcium 8.4 Phosphorus 7.9 H Magnesium 2.3 H Total Bilirubin 2.7 H AST 3530 H ALT 928 H Alkaline Phosphatase 101 Ammonia Lactate Dehydrogenase Total Creatine Kinase Total Protein 7.7 Albumin 4.3 Globulin 3.4 Albumin/Globulin Ratio 1.3 Triglycerides 108 Cholesterol 120 L LDL Cholesterol Direct 78 HDL Cholesterol 24 L Venous Blood Potassium Urine Color Urine Appearance Urine pH Ur Specific [place] Urine Protein Urine Glucose (UA) Urine Ketones Urine Blood Urine Nitrate Urine Bilirubin Urine Urobilinogen Ur Leukocyte Esterase Ur Random Creatinine U Random Total Protein Ur Random Sodium Digoxin Salicylates Urine Opiates Screen Urine Methadone Screen Acetaminophen Ur Barbiturates Screen Ur Phencyclidine Scrn Ur Amphetamines Screen U Benzodiazepines Scrn U Oth Cocaine Metabols U Cannabinoids Screen Alcohol, Quantitative 03/30/18 03/30/18 03/30/18 06:00 07:49 09:00 WBC RBC Hgb Hct MCV MCH MCHC RDW Plt Count MPV Neut % (Auto) Lymph % (Auto) [place] % (Auto) Eos % (Auto) Baso % (Auto) Lymph # (Auto) [place] # (Auto) Eos # (Auto) Baso # (Auto) Absolute Neuts (auto) PT INR APTT pCO2 pO2 HCO3 ABG pH ABG Total CO2 ABG O2 Saturation ABG O2 Content ABG Base Excess ABG Hemoglobin ABG Carboxyhemoglobin POC ABG HHb (Measured) ABG Methemoglobin ABG O2 Capacity VBG pH VBG pCO2 VBG HCO3 VBG Total CO2 VBG O2 Sat (Calc) VBG Base Excess VBG Potassium Hgb O2 Saturation Glucose Lactate FiO2 Crit Value Called To Crit Value Called By Blood Gas Notified Time Sodium Potassium Chloride Carbon Dioxide Anion Gap BUN Creatinine Est GFR ( Amer) Est GFR (Non-Af Amer) POC Glucose (mg/dL) 153 H Random Glucose Serum Osmolality Lactic Acid 10.1 H* Calcium Phosphorus Magnesium Total Bilirubin AST ALT Alkaline Phosphatase Ammonia 78 H Lactate Dehydrogenase Total Creatine Kinase Total Protein Albumin Globulin Albumin/Globulin Ratio Triglycerides Cholesterol LDL Cholesterol Direct HDL Cholesterol Venous Blood Potassium Urine Color Urine Appearance Urine pH Ur Specific [place] Urine Protein Urine Glucose (UA) Urine Ketones Urine Blood Urine Nitrate Urine Bilirubin Urine Urobilinogen Ur Leukocyte Esterase Ur Random Creatinine U Random Total Protein Ur Random Sodium Digoxin Salicylates Urine Opiates Screen Urine Methadone Screen Acetaminophen Ur Barbiturates Screen Ur Phencyclidine Scrn Ur Amphetamines Screen U Benzodiazepines Scrn U Oth Cocaine Metabols U Cannabinoids Screen Alcohol, Quantitative Assessment & Plan - Assessment and Plan (Free Text) Plan: Infectious diseases Attending Physician Attestation Patient seen and examined, discussed with medical billing coordinator. I have reviewed the patient's history of present illness, past medical, social, personal and family histories, pertinent physical exam findings, course so far in this hospital admission, pertinent laboratory and imaging results. I agree with the above findings, assessment and plan. In addition, patient with SIRS, consider cardiog enic shock with multiorgan dysfunction R/O sepsis. Follow up cultures. OVerall prognosis is poor. Started with Merrem and intermittent Vancomycin.
[2018-03-30] MEDS ORDERED: Dexmedetomidine 400mcg/100mL 400 MCG/100 ML BOTTLE IV PRN (10:49)
--- NOTE | 2018-03-30 11:20 | CP.CCUPN ---
<Lisa Sky - Last Filed: 03/30/18 11:10> CCU Subjective - Physician Review Subjective (Free Text): Lisa Sky, PGY-1, ICU Progress Note for Dr. Johnston Patient was seen and evaluated at bedside. Patient was agitated overnight and had to be restrained. No medications were given at the time. Patient is AAOx3 this morning but confused. Patient today reports improvement in shortness of breath, but denies headache, fever, chest pain, abdominal pain, nausea, vomiting, constipation, diarrhea, dysuria, hematuria. 12-point ROS was negative except for what was mentioned above but incomplete due to patient's mental status. CCU Objective - Vital Signs / Intake & Output Intake and Output (Last 8hrs): Intake & Output 03/29/18 03/30/18 03/30/18 22:59 06:59 14:59 Intake Total 1400 Output Total 100 Balance 1300 Weight 216 lb Intake: Blood Product 400 Other 1000 Output: Urine 100 Urine, Voided 100 Stool 0 - Physical Exam Head: Positive for: Atraumatic, Normocephalic Pupils: Positive for: PERRL Extroacular Muscles: Positive for: EOMI Conjunctiva: Positive for: Normal Mouth: Positive for: Moist Mucous Membranes Pharnyx: Positive for: Normal. Negative for: EXUDATE Neck: Positive for: Normal Range of Motion. Negative for: Meningeal Signs Respiratory/Chest: Positive for: Clear to Auscultation, Good Air Exchange, Tachypneic. Negative for: Respiratory Distress, Accessory Muscle Use Cardiovascular: Positive for: Normal S1, S2, Irregular Rhythm, Tachycardic. Negative for: Murmurs Abdomen: Positive for: Distention. Negative for: Tenderness, Peritoneal Signs Back: Positive for: Normal Inspection. Negative for: CVA Tenderness Upper Extremity: Positive for: Normal Inspection. Negative for: Cyanosis, Edema Lower Extremity: Positive for: Edema (2+ pitting edema) Neurological: Positive for: GCS=15, CN II-XII Intact, Speech Normal Skin: Positive for: Warm, Dry, Normal Color. Negative for: Rashes Psychiatric: Positive for: Alert, Oriented x 3, Anxious, Agitated. Negative for: Normal Insight, Normal Concentration - Medications Active Medications: Active Medications Generic Name Dose Route Start Last Admin Trade Name Freq PRN Reason Stop Dose Admin Albuterol/Ipratropium 3 ml 03/29/18 09:00 03/30/18 07:38 Duoneb 3 Mg/0.5 Mg (3 Ml) Ud IH 3 ml [id number] JASWANT Administration Albuterol/Ipratropium 3 ml 03/29/18 09:47 03/29/18 14:30 Duoneb 3 Mg/0.5 Mg (3 Ml) Ud IH 3 ml [id number] PRN Administration Shortness of Breath Dextrose 0 ml 03/30/18 07:58 Dextrose 50% Inj IV STAT PRN Hypoglycemia Protocol Protocol Digoxin 0.125 mg 03/29/18 14:00 03/29/18 15:44 Digoxin PO Not Given 1400 JASWANT Famotidine 20 mg 03/29/18 10:52 03/30/18 09:23 Pepcid PO 20 mg DAILY JASWANT Administration NOREPINEPHRINE BIT/0.9 % NACL 4 mg in 250 mls @ 15 mls/hr 03/29/18 15:22 03/30/18 02:56 Levophed 4 Mg/ 250 Ml Ns Premixed IV 4 mcg/min .[id number] PRN 15 mls/hr TITRATE PER MD ORDER Administration Protocol 4 MCG/MIN Meropenem/Sodium Chloride 500 mg in 50 mls @ 100 mls/hr 03/29/18 22:00 03/30/18 09:27 Merrem Iv 500 Mg/Ns 50 Ml IVPB 04/05/18 22:01 100 mls/hr Q12 JASWANT Administration Protocol Sodium Bicarbonate 150 meq/ 1,150 mls @ 100 mls/hr 03/30/18 05:00 Dextrose IV .[id number] JASWANT Dextrose 1,000 mls @ 0 mls/hr 03/30/18 07:58 Dextrose 5% In Water 1000 Ml IV .Q0M PRN Hypoglycemia Protocol Protocol Per Protocol Dexmedetomidine HCl 400 mcg in 100 mls @ 4.899 mls/hr 03/30/18 10:49 Precedex 400mcg/100ml IV .[id number] PRN Agitation Protocol 0.2 MCG/KG/HR Insulin Human Lispro 0 units 03/29/18 11:30 03/30/18 08:05 Humalog Low SC Not Given ACHS JASWANT Protocol Metoprolol Tartrate 50 mg 03/29/18 17:00 03/30/18 09:02 Lopressor PO Not Given BRKDIN [facility] Mupirocin 0 gm 03/29/18 18:00 Bactroban Ointment TOP BID [facility] - Patient Studies Lab Studies: Microbiology Studies 03/28/18 15:00 Blood Culture - Preliminary Blood NO GROWTH AFTER 24 HOURS 03/28/18 14:45 Blood Culture - Preliminary Blood NO GROWTH AFTER 24 HOURS Lab Studies 03/30/18 03/30/18 03/30/18 Range/Units 09:00 07:49 06:00 WBC (4.5-11.0) 10^3/uL RBC (3.5-6.1) 10^6/uL Hgb (14.0-18.0) g/dL Hct (42.0-52.0) % MCV (80.0-105.0) fl MCH (25.0-35.0) pg MCHC (31.0-37.0) g/dl RDW (11.5-14.5) % Plt Count (120.0-450.0) 10^3/uL MPV (7.0-11.0) fl Neut % (Auto) (50.0-68.0) % Lymph % (Auto) (22.0-35.0) % Lipscomb % (Auto) (1.0-6.0) % Eos % (Auto) (1.5-5.0) % Baso % (Auto) (0.0-3.0) % Lymph # (Auto) (1.2-3.4) Lipscomb # (Auto) (0.1-0.6) Eos # (Auto) (0.0-0.7) Baso # (Auto) (0.0-2.0) K/mm3 Absolute Neuts (auto) (1.4-6.5) PT (9.4-12.5) SECONDS INR APTT (26.9-38.3) Seconds pCO2 (35-45) mm/Hg pO2 (30-55) mm/Hg HCO3 (21-28) mmol/L ABG pH (7.35-7.45) ABG Total CO2 (22-28) mmol.L ABG O2 Saturation (95-98) % ABG O2 Content (15-23) ML/dl ABG Base Excess (-2.0-3.0) mmol/L ABG Hemoglobin (11.7-17.4) g/dL ABG Carboxyhemoglobin (0.5-1.5) % POC ABG HHb (Measured) (0-5) % ABG Methemoglobin (0.0-3.0) % ABG O2 Capacity (16-24) mL/dl ABG Potassium (3.6-5.2) mmol/L VBG pH (7.32-7.43) VBG pCO2 (40-60) VBG HCO3 (21-28) mmol/l VBG Total CO2 (22-28) mmol.L VBG O2 Sat (Calc) (40-65) % VBG Base Excess (0.0-2.0) mmol/L VBG Potassium (3.6-5.2) mmol/L Hgb O2 Saturation (95.0-98.0) % Sodium (132-148) mmol/L Chloride (98-107) mmol/L Glucose (75-110) mg/dl Lactate (0.7-2.1) mmol/L FiO2 % Crit Value Called To Crit Value Called By Blood Gas Notified Time Potassium (3.6-5.0) mmol/L Carbon Dioxide (21-33) mmol/L Anion Gap (10-20) BUN (7-21) mg/dL Creatinine (0.8-1.5) mg/dl Est GFR ( Amer) Est GFR (Non-Af Amer) POC Glucose (mg/dL) 153 H (65-110) mg/dL Random Glucose (70-110) mg/dL Hemoglobin A1c (4.2-6.5) % Serum Osmolality (272-300) mosm/kg Lactic Acid 10.1 H* (0.7-2.1) mmol/L Calcium (8.4-10.5) mg/dL Phosphorus (2.5-4.5) mg/dL Magnesium (1.7-2.2) mg/dL Total Bilirubin (0.2-1.3) mg/dL AST (17-59) U/L ALT (7-56) U/L Alkaline Phosphatase (38-126) U/L Ammonia 78 H (9-33) umol/L Lactate Dehydrogenase (333-699) U/L Total Creatine Kinase (35-230) U/L Troponin I ng/mL Total Protein (5.8-8.3) g/dL Albumin (3.0-4.8) g/dL Globulin gm/dL Albumin/Globulin Ratio (1.1-1.8) Triglycerides (35-160) mg/dL Cholesterol (130-200) mg/dL LDL Cholesterol Direct (0-129) mg/dL HDL Cholesterol (29-60) mg/dL Arterial Blood Potassium (3.6-5.2) mmol/L Venous Blood Potassium (3.6-5.2) mmol/L Urine Color (YELLOW) Urine Appearance (CLEAR) Urine pH (4.7-8.0) Ur Specific [place] (1.005-1.035) Urine Protein (<30 mg/dL) mg/dL Urine Glucose (UA) (NEGATIVE) mg/dL Urine Ketones (NEGATIVE) mg/dL Urine Blood (NEGATIVE) Urine Nitrate (NEGATIVE) Urine Bilirubin (NEGATIVE) Urine Urobilinogen (<1 E.U./dL) E.U./dL Ur Leukocyte Esterase (NEGATIVE) Miguelangel/uL Ur Random Creatinine mg/dL U Random Total Protein mg/L Ur Random Sodium meq/L Digoxin (0.8-2.0) ng/mL Salicylates (2.0-20.0) mg/dL Urine Opiates Screen (NEGATIVE) Urine Methadone Screen (NEGATIVE) Acetaminophen (10.0-20.0) ug/ml Ur Barbiturates Screen (NEGATIVE) Ur Phencyclidine Scrn (NEGATIVE) Ur Amphetamines Screen (NEGATIVE) U Benzodiazepines Scrn (NEGATIVE) U Oth Cocaine Metabols (NEGATIVE) U Cannabinoids Screen (NEGATIVE) Alcohol, Quantitative (0-10) mg/dL 03/30/18 03/30/18 03/30/18 Range/Units 06:00 06:00 06:00 WBC (4.5-11.0) 10^3/uL RBC (3.5-6.1) 10^6/uL Hgb (14.0-18.0) g/dL Hct (42.0-52.0) % MCV (80.0-105.0) fl MCH (25.0-35.0) pg MCHC (31.0-37.0) g/dl RDW (11.5-14.5) % Plt Count (120.0-450.0) 10^3/uL MPV (7.0-11.0) fl Neut % (Auto) (50.0-68.0) % Lymph % (Auto) (22.0-35.0) % Lipscomb % (Auto) (1.0-6.0) % Eos % (Auto) (1.5-5.0) % Baso % (Auto) (0.0-3.0) % Lymph # (Auto) (1.2-3.4) Lipscomb # (Auto) (0.1-0.6) Eos # (Auto) (0.0-0.7) Baso # (Auto) (0.0-2.0) K/mm3 Absolute Neuts (auto) (1.4-6.5) PT 29.0 H (9.4-12.5) SECONDS INR 2.57 APTT (26.9-38.3) Seconds pCO2 (35-45) mm/Hg pO2 (30-55) mm/Hg HCO3 (21-28) mmol/L ABG pH (7.35-7.45) ABG Total CO2 (22-28) mmol.L ABG O2 Saturation (95-98) % ABG O2 Content (15-23) ML/dl ABG Base Excess (-2.0-3.0) mmol/L ABG Hemoglobin (11.7-17.4) g/dL ABG Carboxyhemoglobin (0.5-1.5) % POC ABG HHb (Measured) (0-5) % ABG Methemoglobin (0.0-3.0) % ABG O2 Capacity (16-24) mL/dl ABG Potassium (3.6-5.2) mmol/L VBG pH (7.32-7.43) VBG pCO2 (40-60) VBG HCO3 (21-28) mmol/l VBG Total CO2 (22-28) mmol.L VBG O2 Sat (Calc) (40-65) % VBG Base Excess (0.0-2.0) mmol/L VBG Potassium (3.6-5.2) mmol/L Hgb O2 Saturation (95.0-98.0) % Sodium 140 (132-148) mmol/L Chloride 100 (98-107) mmol/L Glucose (75-110) mg/dl Lactate (0.7-2.1) mmol/L FiO2 % Crit Value Called To Crit Value Called By Blood Gas Notified Time Potassium 6.2 H* (3.6-5.0) mmol/L Carbon Dioxide 16 L (21-33) mmol/L Anion Gap 30 H (10-20) BUN 67 H (7-21) mg/dL Creatinine 4.3 H (0.8-1.5) mg/dl Est GFR ( Amer) 17 Est GFR (Non-Af Amer) 14 POC Glucose (mg/dL) (65-110) mg/dL Random Glucose 51 L (70-110) mg/dL Hemoglobin A1c (4.2-6.5) % Serum Osmolality (272-300) mosm/kg Lactic Acid (0.7-2.1) mmol/L Calcium 8.4 (8.4-10.5) mg/dL Phosphorus 7.9 H (2.5-4.5) mg/dL Magnesium 2.3 H (1.7-2.2) mg/dL Total Bilirubin 2.7 H (0.2-1.3) mg/dL AST 3530 H (17-59) U/L ALT 928 H (7-56) U/L Alkaline Phosphatase 101 (38-126) U/L Ammonia (9-33) umol/L Lactate Dehydrogenase (333-699) U/L Total Creatine Kinase (35-230) U/L Troponin I ng/mL Total Protein 7.7 (5.8-8.3) g/dL Albumin 4.3 (3.0-4.8) g/dL Globulin 3.4 gm/dL Albumin/Globulin Ratio 1.3 (1.1-1.8) Triglycerides 108 (35-160) mg/dL Cholesterol 120 L (130-200) mg/dL LDL Cholesterol Direct 78 (0-129) mg/dL HDL Cholesterol 24 L (29-60) mg/dL Arterial Blood Potassium (3.6-5.2) mmol/L Venous Blood Potassium (3.6-5.2) mmol/L Urine Color (YELLOW) Urine Appearance (CLEAR) Urine pH (4.7-8.0) Ur Specific [place] (1.005-1.035) Urine Protein (<30 mg/dL) mg/dL Urine Glucose (UA) (NEGATIVE) mg/dL Urine Ketones (NEGATIVE) mg/dL Urine Blood (NEGATIVE) Urine Nitrate (NEGATIVE) Urine Bilirubin (NEGATIVE) Urine Urobilinogen (<1 E.U./dL) E.U./dL Ur Leukocyte Esterase (NEGATIVE) Miguelangel/uL Ur Random Creatinine mg/dL U Random Total Protein mg/L Ur Random Sodium meq/L Digoxin (0.8-2.0) ng/mL Salicylates (2.0-20.0) mg/dL Urine Opiates Screen (NEGATIVE) Urine Methadone Screen (NEGATIVE) Acetaminophen (10.0-20.0) ug/ml Ur Barbiturates Screen (NEGATIVE) Ur Phencyclidine Scrn (NEGATIVE) Ur Amphetamines Screen (NEGATIVE) U Benzodiazepines Scrn (NEGATIVE) U Oth Cocaine Metabols (NEGATIVE) U Cannabinoids Screen (NEGATIVE) Alcohol, Quantitative (0-10) mg/dL 03/30/18 03/30/18 03/29/18 Range/Units 06:00 05:15 22:30 WBC 12.9 H D (4.5-11.0) 10^3/uL RBC 4.72 (3.5-6.1) 10^6/uL Hgb 13.3 L (14.0-18.0) g/dL Hct 41.3 L (42.0-52.0) % MCV 87.5 (80.0-105.0) fl MCH 28.2 (25.0-35.0) pg MCHC 32.2 (31.0-37.0) g/dl RDW 18.1 H (11.5-14.5) % Plt Count 179 (120.0-450.0) 10^3/uL MPV 10.7 (7.0-11.0) fl Neut % (Auto) 83.8 H (50.0-68.0) % Lymph % (Auto) 5.3 L (22.0-35.0) % Lipscomb % (Auto) 10.8 H (1.0-6.0) % Eos % (Auto) 0.0 L (1.5-5.0) % Baso % (Auto) 0.1 (0.0-3.0) % Lymph # (Auto) 0.7 L (1.2-3.4) Lipscomb # (Auto) 1.4 H (0.1-0.6) Eos # (Auto) 0.0 (0.0-0.7) Baso # (Auto) 0.01 (0.0-2.0) K/mm3 Absolute Neuts (auto) 10.81 H (1.4-6.5) PT (9.4-12.5) SECONDS INR APTT (26.9-38.3) Seconds pCO2 25 L (35-45) mm/Hg pO2 63.0 L (30-55) mm/Hg HCO3 12.9 L (21-28) mmol/L ABG pH 7.32 L (7.35-7.45) ABG Total CO2 13.7 L (22-28) mmol.L ABG O2 Saturation 91.1 L (95-98) % ABG O2 Content 17.0 (15-23) ML/dl ABG Base Excess -11.4 L (-2.0-3.0) mmol/L ABG Hemoglobin 13.4 (11.7-17.4) g/dL ABG Carboxyhemoglobin 0.8 (0.5-1.5) % POC ABG HHb (Measured) 8.8 H (0-5) % ABG Methemoglobin 0.1 (0.0-3.0) % ABG O2 Capacity 18.7 (16-24) mL/dl ABG Potassium (3.6-5.2) mmol/L VBG pH (7.32-7.43) VBG pCO2 (40-60) VBG HCO3 (21-28) mmol/l VBG Total CO2 (22-28) mmol.L VBG O2 Sat (Calc) (40-65) % VBG Base Excess (0.0-2.0) mmol/L VBG Potassium (3.6-5.2) mmol/L Hgb O2 Saturation 90.3 L (95.0-98.0) % Sodium (132-148) mmol/L Chloride (98-107) mmol/L Glucose (75-110) mg/dl Lactate (0.7-2.1) mmol/L FiO2 40.0 % Crit Value Called To Crit Value Called By Blood Gas Notified Time Potassium (3.6-5.0) mmol/L Carbon Dioxide (21-33) mmol/L Anion Gap (10-20) BUN (7-21) mg/dL Creatinine (0.8-1.5) mg/dl Est GFR ( Amer) Est GFR (Non-Af Amer) POC Glucose (mg/dL) (65-110) mg/dL Random Glucose (70-110) mg/dL Hemoglobin A1c (4.2-6.5) % Serum Osmolality (272-300) mosm/kg Lactic Acid (0.7-2.1) mmol/L Calcium (8.4-10.5) mg/dL Phosphorus (2.5-4.5) mg/dL Magnesium (1.7-2.2) mg/dL Total Bilirubin (0.2-1.3) mg/dL AST (17-59) U/L ALT (7-56) U/L Alkaline Phosphatase (38-126) U/L Ammonia (9-33) umol/L Lactate Dehydrogenase (333-699) U/L Total Creatine Kinase (35-230) U/L Troponin I ng/mL Total Protein (5.8-8.3) g/dL Albumin (3.0-4.8) g/dL Globulin gm/dL Albumin/Globulin Ratio (1.1-1.8) Triglycerides (35-160) mg/dL Cholesterol (130-200) mg/dL LDL Cholesterol Direct (0-129) mg/dL HDL Cholesterol (29-60) mg/dL Arterial Blood Potassium (3.6-5.2) mmol/L Venous Blood Potassium (3.6-5.2) mmol/L Urine Color (YELLOW) Urine Appearance (CLEAR) Urine pH (4.7-8.0) Ur Specific [place] (1.005-1.035) Urine Protein (<30 mg/dL) mg/dL Urine Glucose (UA) (NEGATIVE) mg/dL Urine Ketones (NEGATIVE) mg/dL Urine Blood (NEGATIVE) Urine Nitrate (NEGATIVE) Urine Bilirubin (NEGATIVE) Urine Urobilinogen (<1 E.U./dL) E.U./dL Ur Leukocyte Esterase (NEGATIVE) Miguelangel/uL Ur Random Creatinine mg/dL U Random Total Protein mg/L Ur Random Sodium meq/L Digoxin (0.8-2.0) ng/mL Salicylates < 1 L (2.0-20.0) mg/dL Urine Opiates Screen (NEGATIVE) Urine Methadone Screen (NEGATIVE) Acetaminophen < 10.0 L (10.0-20.0) ug/ml Ur Barbiturates Screen (NEGATIVE) Ur Phencyclidine Scrn (NEGATIVE) Ur Amphetamines Screen (NEGATIVE) U Benzodiazepines Scrn (NEGATIVE) U Oth Cocaine Metabols (NEGATIVE) U Cannabinoids Screen (NEGATIVE) Alcohol, Quantitative (0-10) mg/dL 03/29/18 03/29/18 03/29/18 Range/Units 22:30 22:30 21:53 WBC (4.5-11.0) 10^3/uL RBC (3.5-6.1) 10^6/uL Hgb (14.0-18.0) g/dL Hct (42.0-52.0) % MCV (80.0-105.0) fl MCH (25.0-35.0) pg MCHC (31.0-37.0) g/dl RDW (11.5-14.5) % Plt Count (120.0-450.0) 10^3/uL MPV (7.0-11.0) fl Neut % (Auto) (50.0-68.0) % Lymph % (Auto) (22.0-35.0) % Lipscomb % (Auto) (1.0-6.0) % Eos % (Auto) (1.5-5.0) % Baso % (Auto) (0.0-3.0) % Lymph # (Auto) (1.2-3.4) [place]comb # (Auto) (0.1-0.6) Eos # (Auto) (0.0-0.7) Baso # (Auto) (0.0-2.0) K/mm3 Absolute Neuts (auto) (1.4-6.5) PT (9.4-12.5) SECONDS INR APTT (26.9-38.3) Seconds pCO2 (35-45) mm/Hg pO2 (30-55) mm/Hg HCO3 (21-28) mmol/L ABG pH (7.35-7.45) ABG Total CO2 (22-28) mmol.L ABG O2 Saturation (95-98) % ABG O2 Content (15-23) ML/dl ABG Base Excess (-2.0-3.0) mmol/L ABG Hemoglobin (11.7-17.4) g/dL ABG Carboxyhemoglobin (0.5-1.5) % POC ABG HHb (Measured) (0-5) % ABG Methemoglobin (0.0-3.0) % ABG O2 Capacity (16-24) mL/dl ABG Potassium (3.6-5.2) mmol/L VBG pH (7.32-7.43) VBG pCO2 (40-60) VBG HCO3 (21-28) mmol/l VBG Total CO2 (22-28) mmol.L VBG O2 Sat (Calc) (40-65) % VBG Base Excess (0.0-2.0) mmol/L VBG Potassium (3.6-5.2) mmol/L Hgb O2 Saturation (95.0-98.0) % Sodium (132-148) mmol/L Chloride (98-107) mmol/L Glucose (75-110) mg/dl Lactate (0.7-2.1) mmol/L FiO2 % Crit Value Called To Crit Value Called By Blood Gas Notified Time Potassium (3.6-5.0) mmol/L Carbon Dioxide (21-33) mmol/L Anion Gap (10-20) BUN (7-21) mg/dL Creatinine (0.8-1.5) mg/dl Est GFR ( Amer) Est GFR (Non-Af Amer) POC Glucose (mg/dL) 82 (65-110) mg/dL Random Glucose (70-110) mg/dL Hemoglobin A1c (4.2-6.5) % Serum Osmolality 308 H (272-300) mosm/kg Lactic Acid (0.7-2.1) mmol/L Calcium (8.4-10.5) mg/dL Phosphorus (2.5-4.5) mg/dL Magnesium (1.7-2.2) mg/dL Total Bilirubin (0.2-1.3) mg/dL AST (17-59) U/L ALT (7-56) U/L Alkaline Phosphatase (38-126) U/L Ammonia (9-33) umol/L Lactate Dehydrogenase (333-699) U/L Total Creatine Kinase (35-230) U/L Troponin I ng/mL Total Protein (5.8-8.3) g/dL Albumin (3.0-4.8) g/dL Globulin gm/dL Albumin/Globulin Ratio (1.1-1.8) Triglycerides (35-160) mg/dL Cholesterol (130-200) mg/dL LDL Cholesterol Direct (0-129) mg/dL HDL Cholesterol (29-60) mg/dL Arterial Blood Potassium (3.6-5.2) mmol/L Venous Blood Potassium (3.6-5.2) mmol/L Urine Color (YELLOW) Urine Appearance (CLEAR) Urine pH (4.7-8.0) Ur Specific [place] (1.005-1.035) Urine Protein (<30 mg/dL) mg/dL Urine Glucose (UA) (NEGATIVE) mg/dL Urine Ketones (NEGATIVE) mg/dL Urine Blood (NEGATIVE) Urine Nitrate (NEGATIVE) Urine Bilirubin (NEGATIVE) Urine Urobilinogen (<1 E.U./dL) E.U./dL Ur Leukocyte Esterase (NEGATIVE) Miguelangel/uL Ur Random Creatinine mg/dL U Random Total Protein mg/L Ur Random Sodium meq/L Digoxin (0.8-2.0) ng/mL Salicylates (2.0-20.0) mg/dL Urine Opiates Screen (NEGATIVE) Urine Methadone Screen (NEGATIVE) Acetaminophen (10.0-20.0) ug/ml Ur Barbiturates Screen (NEGATIVE) Ur Phencyclidine Scrn (NEGATIVE) Ur Amphetamines Screen (NEGATIVE) U Benzodiazepines Scrn (NEGATIVE) U Oth Cocaine Metabols (NEGATIVE) U Cannabinoids Screen (NEGATIVE) Alcohol, Quantitative < 10 (0-10) mg/dL 03/29/18 03/29/18 03/29/18 Range/Units 18:50 18:30 18:30 WBC (4.5-11.0) 10^3/uL RBC (3.5-6.1) 10^6/uL Hgb (14.0-18.0) g/dL Hct (42.0-52.0) % MCV (80.0-105.0) fl MCH (25.0-35.0) pg MCHC (31.0-37.0) g/dl RDW (11.5-14.5) % Plt Count (120.0-450.0) 10^3/uL MPV (7.0-11.0) fl Neut % (Auto) (50.0-68.0) % Lymph % (Auto) (22.0-35.0) % [place]comb % (Auto) (1.0-6.0) % Eos % (Auto) (1.5-5.0) % Baso % (Auto) (0.0-3.0) % Lymph # (Auto) (1.2-3.4) [place] # (Auto) (0.1-0.6) Eos # (Auto) (0.0-0.7) Baso # (Auto) (0.0-2.0) K/mm3 Absolute Neuts (auto) (1.4-6.5) PT (9.4-12.5) SECONDS INR APTT (26.9-38.3) Seconds pCO2 (35-45) mm/Hg pO2 173 H (30-55) mm/Hg HCO3 (21-28) mmol/L ABG pH (7.35-7.45) ABG Total CO2 (22-28) mmol.L ABG O2 Saturation (95-98) % ABG O2 Content (15-23) ML/dl ABG Base Excess (-2.0-3.0) mmol/L ABG Hemoglobin (11.7-17.4) g/dL ABG Carboxyhemoglobin (0.5-1.5) % POC ABG HHb (Measured) (0-5) % ABG Methemoglobin (0.0-3.0) % ABG O2 Capacity (16-24) mL/dl ABG Potassium (3.6-5.2) mmol/L VBG pH 7.25 L (7.32-7.43) VBG pCO2 30.0 L (40-60) VBG HCO3 13.2 L (21-28) mmol/l VBG Total CO2 14.1 L (22-28) mmol.L VBG O2 Sat (Calc) 97.2 H (40-65) % VBG Base Excess -12.7 L (0.0-2.0) mmol/L VBG Potassium 6.6 H* (3.6-5.2) mmol/L Hgb O2 Saturation (95.0-98.0) % Sodium 131.0 L (132-148) mmol/L Chloride 96.0 L (98-107) mmol/L Glucose 189 H (75-110) mg/dl Lactate 11.4 H* (0.7-2.1) mmol/L FiO2 21.0 % Crit Value Called To Aimee enzo Crit Value Called By Atc Blood Gas Notified Time 1900 Potassium (3.6-5.0) mmol/L Carbon Dioxide (21-33) mmol/L Anion Gap (10-20) BUN (7-21) mg/dL Creatinine (0.8-1.5) mg/dl Est GFR ( Amer) Est GFR (Non-Af Amer) POC Glucose (mg/dL) (65-110) mg/dL Random Glucose (70-110) mg/dL Hemoglobin A1c (4.2-6.5) % Serum Osmolality (272-300) mosm/kg Lactic Acid 10.0 H* (0.7-2.1) mmol/L Calcium (8.4-10.5) mg/dL Phosphorus (2.5-4.5) mg/dL Magnesium (1.7-2.2) mg/dL Total Bilirubin (0.2-1.3) mg/dL AST (17-59) U/L ALT (7-56) U/L Alkaline Phosphatase (38-126) U/L Ammonia (9-33) umol/L Lactate Dehydrogenase (333-699) U/L Total Creatine Kinase (35-230) U/L Troponin I ng/mL Total Protein (5.8-8.3) g/dL Albumin (3.0-4.8) g/dL Globulin gm/dL Albumin/Globulin Ratio (1.1-1.8) Triglycerides (35-160) mg/dL Cholesterol (130-200) mg/dL LDL Cholesterol Direct (0-129) mg/dL HDL Cholesterol (29-60) mg/dL Arterial Blood Potassium (3.6-5.2) mmol/L Venous Blood Potassium 6.6 H* (3.6-5.2) mmol/L Urine Color (YELLOW) Urine Appearance (CLEAR) Urine pH (4.7-8.0) Ur Specific [place] (1.005-1.035) Urine Protein (<30 mg/dL) mg/dL Urine Glucose (UA) (NEGATIVE) mg/dL Urine Ketones (NEGATIVE) mg/dL Urine Blood (NEGATIVE) Urine Nitrate (NEGATIVE) Urine Bilirubin (NEGATIVE) Urine Urobilinogen (<1 E.U./dL) E.U./dL Ur Leukocyte Esterase (NEGATIVE) Miguelangel/uL Ur Random Creatinine 150 mg/dL U Random Total Protein mg/L Ur Random Sodium < 5 meq/L Digoxin (0.8-2.0) ng/mL Salicylates (2.0-20.0) mg/dL Urine Opiates Screen (NEGATIVE) Urine Methadone Screen (NEGATIVE) Acetaminophen (10.0-20.0) ug/ml Ur Barbiturates Screen (NEGATIVE) Ur Phencyclidine Scrn (NEGATIVE) Ur Amphetamines Screen (NEGATIVE) U Benzodiazepines Scrn (NEGATIVE) U Oth Cocaine Metabols (NEGATIVE) U Cannabinoids Screen (NEGATIVE) Alcohol, Quantitative (0-10) mg/dL 03/29/18 03/29/18 03/29/18 Range/Units 18:30 17:30 17:30 WBC (4.5-11.0) 10^3/uL RBC (3.5-6.1) 10^6/uL Hgb (14.0-18.0) g/dL Hct (42.0-52.0) % MCV (80.0-105.0) fl MCH (25.0-35.0) pg MCHC (31.0-37.0) g/dl RDW (11.5-14.5) % Plt Count (120.0-450.0) 10^3/uL MPV (7.0-11.0) fl Neut % (Auto) (50.0-68.0) % Lymph % (Auto) (22.0-35.0) % Lipscomb % (Auto) (1.0-6.0) % Eos % (Auto) (1.5-5.0) % Baso % (Auto) (0.0-3.0) % Lymph # (Auto) (1.2-3.4) Lipscomb # (Auto) (0.1-0.6) Eos # (Auto) (0.0-0.7) Baso # (Auto) (0.0-2.0) K/mm3 Absolute Neuts (auto) (1.4-6.5) PT (9.4-12.5) SECONDS INR APTT (26.9-38.3) Seconds pCO2 (35-45) mm/Hg pO2 (30-55) mm/Hg HCO3 (21-28) mmol/L ABG pH (7.35-7.45) ABG Total CO2 (22-28) mmol.L ABG O2 Saturation (95-98) % ABG O2 Content (15-23) ML/dl ABG Base Excess (-2.0-3.0) mmol/L ABG Hemoglobin (11.7-17.4) g/dL ABG Carboxyhemoglobin (0.5-1.5) % POC ABG HHb (Measured) (0-5) % ABG Methemoglobin (0.0-3.0) % ABG O2 Capacity (16-24) mL/dl ABG Potassium (3.6-5.2) mmol/L VBG pH (7.32-7.43) VBG pCO2 (40-60) VBG HCO3 (21-28) mmol/l VBG Total CO2 (22-28) mmol.L VBG O2 Sat (Calc) (40-65) % VBG Base Excess (0.0-2.0) mmol/L VBG Potassium (3.6-5.2) mmol/L Hgb O2 Saturation (95.0-98.0) % Sodium 136 (132-148) mmol/L Chloride 102 (98-107) mmol/L Glucose (75-110) mg/dl Lactate (0.7-2.1) mmol/L FiO2 % Crit Value Called To Crit Value Called By Blood Gas Notified Time Potassium 5.5 H (3.6-5.0) mmol/L Carbon Dioxide 13 L (21-33) mmol/L Anion Gap 26 H (10-20) BUN 63 H (7-21) mg/dL Creatinine 3.7 H (0.8-1.5) mg/dl Est GFR ( Amer) 20 Est GFR (Non-Af Amer) 16 POC Glucose (mg/dL) (65-110) mg/dL Random Glucose 110 (70-110) mg/dL Hemoglobin A1c (4.2-6.5) % Serum Osmolality (272-300) mosm/kg Lactic Acid (0.7-2.1) mmol/L Calcium 8.3 L (8.4-10.5) mg/dL Phosphorus 7.1 H (2.5-4.5) mg/dL Magnesium 2.4 H (1.7-2.2) mg/dL Total Bilirubin 1.2 (0.2-1.3) mg/dL AST 126 H D (17-59) U/L ALT 27 (7-56) U/L Alkaline Phosphatase 73 (38-126) U/L Ammonia (9-33) umol/L Lactate Dehydrogenase (333-699) U/L Total Creatine Kinase (35-230) U/L Troponin I ng/mL Total Protein 6.9 (5.8-8.3) g/dL Albumin 3.9 (3.0-4.8) g/dL Globulin 3.1 gm/dL Albumin/Globulin Ratio 1.3 (1.1-1.8) Triglycerides (35-160) mg/dL Cholesterol (130-200) mg/dL LDL Cholesterol Direct (0-129) mg/dL HDL Cholesterol (29-60) mg/dL Arterial Blood Potassium (3.6-5.2) mmol/L Venous Blood Potassium (3.6-5.2) mmol/L Urine Color (YELLOW) Urine Appearance (CLEAR) Urine pH (4.7-8.0) Ur Specific [place] (1.005-1.035) Urine Protein (<30 mg/dL) mg/dL Urine Glucose (UA) (NEGATIVE) mg/dL Urine Ketones (NEGATIVE) mg/dL Urine Blood (NEGATIVE) Urine Nitrate (NEGATIVE) Urine Bilirubin (NEGATIVE) Urine Urobilinogen (<1 E.U./dL) E.U./dL Ur Leukocyte Esterase (NEGATIVE) Miguelangel/uL Ur Random Creatinine mg/dL U Random Total Protein 14 mg/L Ur Random Sodium meq/L Digoxin (0.8-2.0) ng/mL Salicylates (2.0-20.0) mg/dL Urine Opiates Screen Negative (NEGATIVE) Urine Methadone Screen Negative (NEGATIVE) Acetaminophen (10.0-20.0) ug/ml Ur Barbiturates Screen Negative (NEGATIVE) Ur Phencyclidine Scrn Negative (NEGATIVE) Ur Amphetamines Screen Negative (NEGATIVE) U Benzodiazepines Scrn Negative (NEGATIVE) U Oth Cocaine Metabols Negative (NEGATIVE) U Cannabinoids Screen Negative (NEGATIVE) Alcohol, Quantitative (0-10) mg/dL 03/29/18 03/29/18 03/29/18 Range/Units 17:20 16:27 15:40 WBC (4.5-11.0) 10^3/uL RBC (3.5-6.1) 10^6/uL Hgb (14.0-18.0) g/dL Hct (42.0-52.0) % MCV (80.0-105.0) fl MCH (25.0-35.0) pg MCHC (31.0-37.0) g/dl RDW (11.5-14.5) % Plt Count (120.0-450.0) 10^3/uL MPV (7.0-11.0) fl Neut % (Auto) (50.0-68.0) % Lymph % (Auto) (22.0-35.0) % [place]comb % (Auto) (1.0-6.0) % Eos % (Auto) (1.5-5.0) % Baso % (Auto) (0.0-3.0) % Lymph # (Auto) (1.2-3.4) [place] # (Auto) (0.1-0.6) Eos # (Auto) (0.0-0.7) Baso # (Auto) (0.0-2.0) K/mm3 Absolute Neuts (auto) (1.4-6.5) PT (9.4-12.5) SECONDS INR APTT (26.9-38.3) Seconds pCO2 (35-45) mm/Hg pO2 (30-55) mm/Hg HCO3 (21-28) mmol/L ABG pH (7.35-7.45) ABG Total CO2 (22-28) mmol.L ABG O2 Saturation (95-98) % ABG O2 Content (15-23) ML/dl ABG Base Excess (-2.0-3.0) mmol/L ABG Hemoglobin (11.7-17.4) g/dL ABG Carboxyhemoglobin (0.5-1.5) % POC ABG HHb (Measured) (0-5) % ABG Methemoglobin (0.0-3.0) % ABG O2 Capacity (16-24) mL/dl ABG Potassium (3.6-5.2) mmol/L VBG pH (7.32-7.43) VBG pCO2 (40-60) VBG HCO3 (21-28) mmol/l VBG Total CO2 (22-28) mmol.L VBG O2 Sat (Calc) (40-65) % VBG Base Excess (0.0-2.0) mmol/L VBG Potassium (3.6-5.2) mmol/L Hgb O2 Saturation (95.0-98.0) % Sodium (132-148) mmol/L Chloride (98-107) mmol/L Glucose (75-110) mg/dl Lactate (0.7-2.1) mmol/L FiO2 % Crit Value Called To Crit Value Called By Blood Gas Notified Time Potassium (3.6-5.0) mmol/L Carbon Dioxide (21-33) mmol/L Anion Gap (10-20) BUN (7-21) mg/dL Creatinine (0.8-1.5) mg/dl Est GFR ( Amer) Est GFR (Non-Af Amer) POC Glucose (mg/dL) (65-110) mg/dL Random Glucose (70-110) mg/dL Hemoglobin A1c (4.2-6.5) % Serum Osmolality (272-300) mosm/kg Lactic Acid (0.7-2.1) mmol/L Calcium (8.4-10.5) mg/dL Phosphorus (2.5-4.5) mg/dL Magnesium (1.7-2.2) mg/dL Total Bilirubin (0.2-1.3) mg/dL AST (17-59) U/L ALT (7-56) U/L Alkaline Phosphatase (38-126) U/L Ammonia (9-33) umol/L Lactate Dehydrogenase 524 (333-699) U/L Total Creatine Kinase 181 (35-230) U/L Troponin I ng/mL Total Protein (5.8-8.3) g/dL Albumin (3.0-4.8) g/dL Globulin gm/dL Albumin/Globulin Ratio (1.1-1.8) Triglycerides (35-160) mg/dL Cholesterol (130-200) mg/dL LDL Cholesterol Direct (0-129) mg/dL HDL Cholesterol (29-60) mg/dL Arterial Blood Potassium (3.6-5.2) mmol/L Venous Blood Potassium (3.6-5.2) mmol/L Urine Color Yellow (YELLOW) Urine Appearance Clear (CLEAR) Urine pH 5.5 (4.7-8.0) Ur Specific [place] >= 1.030 (1.005-1.035) Urine Protein Negative (<30 mg/dL) mg/dL Urine Glucose (UA) Negative (NEGATIVE) mg/dL Urine Ketones Negative (NEGATIVE) mg/dL Urine Blood Negative (NEGATIVE) Urine Nitrate Negative (NEGATIVE) Urine Bilirubin Negative (NEGATIVE) Urine Urobilinogen 0.2 (<1 E.U./dL) E.U./dL Ur Leukocyte Esterase Negative (NEGATIVE) Miguelangel/uL Ur Random Creatinine mg/dL U Random Total Protein mg/L Ur Random Sodium meq/L Digoxin < 0.4 L (0.8-2.0) ng/mL Salicylates (2.0-20.0) mg/dL Urine Opiates Screen (NEGATIVE) Urine Methadone Screen (NEGATIVE) Acetaminophen (10.0-20.0) ug/ml Ur Barbiturates Screen (NEGATIVE) Ur Phencyclidine Scrn (NEGATIVE) Ur Amphetamines Screen (NEGATIVE) U Benzodiazepines Scrn (NEGATIVE) U Oth Cocaine Metabols (NEGATIVE) U Cannabinoids Screen (NEGATIVE) Alcohol, Quantitative (0-10) mg/dL 03/29/18 03/29/18 03/29/18 Range/Units 15:30 15:30 15:30 WBC (4.5-11.0) 10^3/uL RBC (3.5-6.1) 10^6/uL Hgb (14.0-18.0) g/dL Hct (42.0-52.0) % MCV (80.0-105.0) fl MCH (25.0-35.0) pg MCHC (31.0-37.0) g/dl RDW (11.5-14.5) % Plt Count (120.0-450.0) 10^3/uL MPV (7.0-11.0) fl Neut % (Auto) (50.0-68.0) % Lymph % (Auto) (22.0-35.0) % Lipscomb % (Auto) (1.0-6.0) % Eos % (Auto) (1.5-5.0) % Baso % (Auto) (0.0-3.0) % Lymph # (Auto) (1.2-3.4) [place]comb # (Auto) (0.1-0.6) Eos # (Auto) (0.0-0.7) Baso # (Auto) (0.0-2.0) K/mm3 Absolute Neuts (auto) (1.4-6.5) PT 158.9 H (9.4-12.5) SECONDS INR 14.32 H* APTT 76.4 H (26.9-38.3) Seconds pCO2 (35-45) mm/Hg pO2 (30-55) mm/Hg HCO3 (21-28) mmol/L ABG pH (7.35-7.45) ABG Total CO2 (22-28) mmol.L ABG O2 Saturation (95-98) % ABG O2 Content (15-23) ML/dl ABG Base Excess (-2.0-3.0) mmol/L ABG Hemoglobin (11.7-17.4) g/dL ABG Carboxyhemoglobin (0.5-1.5) % POC ABG HHb (Measured) (0-5) % ABG Methemoglobin (0.0-3.0) % ABG O2 Capacity (16-24) mL/dl ABG Potassium (3.6-5.2) mmol/L VBG pH (7.32-7.43) VBG pCO2 (40-60) VBG HCO3 (21-28) mmol/l VBG Total CO2 (22-28) mmol.L VBG O2 Sat (Calc) (40-65) % VBG Base Excess (0.0-2.0) mmol/L VBG Potassium (3.6-5.2) mmol/L Hgb O2 Saturation (95.0-98.0) % Sodium 134 (132-148) mmol/L Chloride 98 (98-107) mmol/L Glucose (75-110) mg/dl Lactate (0.7-2.1) mmol/L FiO2 % Crit Value Called To Crit Value Called By Blood Gas Notified Time Potassium 6.0 H* (3.6-5.0) mmol/L Carbon Dioxide 13 L (21-33) mmol/L Anion Gap 29 H (10-20) BUN 64 H (7-21) mg/dL Creatinine 3.6 H (0.8-1.5) mg/dl Est GFR ( Amer) 20 Est GFR (Non-Af Amer) 17 POC Glucose (mg/dL) (65-110) mg/dL Random Glucose 197 H (70-110) mg/dL Hemoglobin A1c (4.2-6.5) % Serum Osmolality (272-300) mosm/kg Lactic Acid 8.9 H* (0.7-2.1) mmol/L Calcium 8.4 (8.4-10.5) mg/dL Phosphorus 7.8 H (2.5-4.5) mg/dL Magnesium 2.5 H (1.7-2.2) mg/dL Total Bilirubin 1.2 (0.2-1.3) mg/dL AST 49 (17-59) U/L ALT 15 (7-56) U/L Alkaline Phosphatase 77 (38-126) U/L Ammonia (9-33) umol/L Lactate Dehydrogenase (333-699) U/L Total Creatine Kinase (35-230) U/L Troponin I ng/mL Total Protein 7.2 (5.8-8.3) g/dL Albumin 4.0 (3.0-4.8) g/dL Globulin 3.2 gm/dL Albumin/Globulin Ratio 1.2 (1.1-1.8) Triglycerides (35-160) mg/dL Cholesterol (130-200) mg/dL LDL Cholesterol Direct (0-129) mg/dL HDL Cholesterol (29-60) mg/dL Arterial Blood Potassium (3.6-5.2) mmol/L Venous Blood Potassium (3.6-5.2) mmol/L Urine Color (YELLOW) Urine Appearance (CLEAR) Urine pH (4.7-8.0) Ur Specific [place] (1.005-1.035) Urine Protein (<30 mg/dL) mg/dL Urine Glucose (UA) (NEGATIVE) mg/dL Urine Ketones (NEGATIVE) mg/dL Urine Blood (NEGATIVE) Urine Nitrate (NEGATIVE) Urine Bilirubin (NEGATIVE) Urine Urobilinogen (<1 E.U./dL) E.U./dL Ur Leukocyte Esterase (NEGATIVE) Miguelangel/uL Ur Random Creatinine mg/dL U Random Total Protein mg/L Ur Random Sodium meq/L Digoxin (0.8-2.0) ng/mL Salicylates (2.0-20.0) mg/dL Urine Opiates Screen (NEGATIVE) Urine Methadone Screen (NEGATIVE) Acetaminophen (10.0-20.0) ug/ml Ur Barbiturates Screen (NEGATIVE) Ur Phencyclidine Scrn (NEGATIVE) Ur Amphetamines Screen (NEGATIVE) U Benzodiazepines Scrn (NEGATIVE) U Oth Cocaine Metabols (NEGATIVE) U Cannabinoids Screen (NEGATIVE) Alcohol, Quantitative (0-10) mg/dL 03/29/18 03/29/18 03/29/18 Range/Units 15:15 14:52 14:45 WBC 6.8 (4.5-11.0) 10^3/uL RBC 4.72 (3.5-6.1) 10^6/uL Hgb 13.4 L (14.0-18.0) g/dL Hct 40.9 L (42.0-52.0) % MCV 86.7 (80.0-105.0) fl MCH 28.4 (25.0-35.0) pg MCHC 32.8 (31.0-37.0) g/dl RDW 17.6 H (11.5-14.5) % Plt Count 242 (120.0-450.0) 10^3/uL MPV 9.8 (7.0-11.0) fl Neut % (Auto) 76.0 H (50.0-68.0) % Lymph % (Auto) 16.7 L (22.0-35.0) % [place]comb % (Auto) 6.5 H (1.0-6.0) % Eos % (Auto) 0.1 L (1.5-5.0) % Baso % (Auto) 0.7 (0.0-3.0) % Lymph # (Auto) 1.1 L (1.2-3.4) [place]comb # (Auto) 0.4 (0.1-0.6) Eos # (Auto) 0.0 (0.0-0.7) Baso # (Auto) 0.05 (0.0-2.0) K/mm3 Absolute Neuts (auto) 5.12 (1.4-6.5) PT (9.4-12.5) SECONDS INR APTT (26.9-38.3) Seconds pCO2 23 L (35-45) mm/Hg pO2 83.0 (30-55) mm/Hg HCO3 8.2 L* (21-28) mmol/L ABG pH 7.16 L* (7.35-7.45) ABG Total CO2 8.9 L (22-28) mmol.L ABG O2 Saturation 93.6 L (95-98) % ABG O2 Content (15-23) ML/dl ABG Base Excess -18.7 L (-2.0-3.0) mmol/L ABG Hemoglobin (11.7-17.4) g/dL ABG Carboxyhemoglobin (0.5-1.5) % POC ABG HHb (Measured) (0-5) % ABG Methemoglobin (0.0-3.0) % ABG O2 Capacity (16-24) mL/dl ABG Potassium 5.3 H (3.6-5.2) mmol/L VBG pH (7.32-7.43) VBG pCO2 (40-60) VBG HCO3 (21-28) mmol/l VBG Total CO2 (22-28) mmol.L VBG O2 Sat (Calc) (40-65) % VBG Base Excess (0.0-2.0) mmol/L VBG Potassium (3.6-5.2) mmol/L Hgb O2 Saturation (95.0-98.0) % Sodium 131.0 L (132-148) mmol/L Chloride 101.0 (98-107) mmol/L Glucose 193 H (75-110) mg/dl Lactate 9.8 H* (0.7-2.1) mmol/L FiO2 40.0 % Crit Value Called To Betty hooker rn Crit Value Called By Blood Gas Notified Time 1452 Potassium (3.6-5.0) mmol/L Carbon Dioxide (21-33) mmol/L Anion Gap (10-20) BUN (7-21) mg/dL Creatinine (0.8-1.5) mg/dl Est GFR ( Amer) Est GFR (Non-Af Amer) POC Glucose (mg/dL) 250 H (65-110) mg/dL Random Glucose (70-110) mg/dL Hemoglobin A1c (4.2-6.5) % Serum Osmolality (272-300) mosm/kg Lactic Acid (0.7-2.1) mmol/L Calcium (8.4-10.5) mg/dL Phosphorus (2.5-4.5) mg/dL Magnesium (1.7-2.2) mg/dL Total Bilirubin (0.2-1.3) mg/dL AST (17-59) U/L ALT (7-56) U/L Alkaline Phosphatase (38-126) U/L Ammonia (9-33) umol/L Lactate Dehydrogenase (333-699) U/L Total Creatine Kinase (35-230) U/L Troponin I ng/mL Total Protein (5.8-8.3) g/dL Albumin (3.0-4.8) g/dL Globulin gm/dL Albumin/Globulin Ratio (1.1-1.8) Triglycerides (35-160) mg/dL Cholesterol (130-200) mg/dL LDL Cholesterol Direct (0-129) mg/dL HDL Cholesterol (29-60) mg/dL Arterial Blood Potassium 5.3 H (3.6-5.2) mmol/L Venous Blood Potassium (3.6-5.2) mmol/L Urine Color (YELLOW) Urine Appearance (CLEAR) Urine pH (4.7-8.0) Ur Specific [place] (1.005-1.035) Urine Protein (<30 mg/dL) mg/dL Urine Glucose (UA) (NEGATIVE) mg/dL Urine Ketones (NEGATIVE) mg/dL Urine Blood (NEGATIVE) Urine Nitrate (NEGATIVE) Urine Bilirubin (NEGATIVE) Urine Urobilinogen (<1 E.U./dL) E.U./dL Ur Leukocyte Esterase (NEGATIVE) Miguelangel/uL Ur Random Creatinine mg/dL U Random Total Protein mg/L Ur Random Sodium meq/L Digoxin (0.8-2.0) ng/mL Salicylates (2.0-20.0) mg/dL Urine Opiates Screen (NEGATIVE) Urine Methadone Screen (NEGATIVE) Acetaminophen (10.0-20.0) ug/ml Ur Barbiturates Screen (NEGATIVE) Ur Phencyclidine Scrn (NEGATIVE) Ur Amphetamines Screen (NEGATIVE) U Benzodiazepines Scrn (NEGATIVE) U Oth Cocaine Metabols (NEGATIVE) U Cannabinoids Screen (NEGATIVE) Alcohol, Quantitative (0-10) mg/dL 03/29/18 03/29/18 03/29/18 Range/Units 13:25 12:20 11:06 WBC (4.5-11.0) 10^3/uL RBC (3.5-6.1) 10^6/uL Hgb (14.0-18.0) g/dL Hct (42.0-52.0) % MCV (80.0-105.0) fl MCH (25.0-35.0) pg MCHC (31.0-37.0) g/dl RDW (11.5-14.5) % Plt Count (120.0-450.0) 10^3/uL MPV (7.0-11.0) fl Neut % (Auto) (50.0-68.0) % Lymph % (Auto) (22.0-35.0) % [place]comb % (Auto) (1.0-6.0) % Eos % (Auto) (1.5-5.0) % Baso % (Auto) (0.0-3.0) % Lymph # (Auto) (1.2-3.4) [place] # (Auto) (0.1-0.6) Eos # (Auto) (0.0-0.7) Baso # (Auto) (0.0-2.0) K/mm3 Absolute Neuts (auto) (1.4-6.5) PT (9.4-12.5) SECONDS INR APTT (26.9-38.3) Seconds pCO2 (35-45) mm/Hg pO2 67 H (30-55) mm/Hg HCO3 (21-28) mmol/L ABG pH (7.35-7.45) ABG Total CO2 (22-28) mmol.L ABG O2 Saturation (95-98) % ABG O2 Content (15-23) ML/dl ABG Base Excess (-2.0-3.0) mmol/L ABG Hemoglobin (11.7-17.4) g/dL ABG Carboxyhemoglobin (0.5-1.5) % POC ABG HHb (Measured) (0-5) % ABG Methemoglobin (0.0-3.0) % ABG O2 Capacity (16-24) mL/dl ABG Potassium (3.6-5.2) mmol/L VBG pH 7.30 L (7.32-7.43) VBG pCO2 31.0 L (40-60) VBG HCO3 15.3 L (21-28) mmol/l VBG Total CO2 16.3 L (22-28) mmol.L VBG O2 Sat (Calc) 92.4 H (40-65) % VBG Base Excess -9.9 L (0.0-2.0) mmol/L VBG Potassium 5.6 H (3.6-5.2) mmol/L Hgb O2 Saturation (95.0-98.0) % Sodium 129.0 L (132-148) mmol/L Chloride 96.0 L (98-107) mmol/L Glucose 269 H (75-110) mg/dl Lactate 4.7 H* (0.7-2.1) mmol/L FiO2 21.0 % Crit Value Called To Michelle cooper Crit Value Called By Ab Blood Gas Notified Time 1225 Potassium (3.6-5.0) mmol/L Carbon Dioxide (21-33) mmol/L Anion Gap (10-20) BUN (7-21) mg/dL Creatinine (0.8-1.5) mg/dl Est GFR ( Amer) Est GFR (Non-Af Amer) POC Glucose (mg/dL) 266 H (65-110) mg/dL Random Glucose (70-110) mg/dL Hemoglobin A1c (4.2-6.5) % Serum Osmolality (272-300) mosm/kg Lactic Acid (0.7-2.1) mmol/L Calcium (8.4-10.5) mg/dL Phosphorus (2.5-4.5) mg/dL Magnesium (1.7-2.2) mg/dL Total Bilirubin (0.2-1.3) mg/dL AST (17-59) U/L ALT (7-56) U/L Alkaline Phosphatase (38-126) U/L Ammonia (9-33) umol/L Lactate Dehydrogenase (333-699) U/L Total Creatine Kinase (35-230) U/L Troponin I 0.07 ng/mL Total Protein (5.8-8.3) g/dL Albumin (3.0-4.8) g/dL Globulin gm/dL Albumin/Globulin Ratio (1.1-1.8) Triglycerides (35-160) mg/dL Cholesterol (130-200) mg/dL LDL Cholesterol Direct (0-129) mg/dL HDL Cholesterol (29-60) mg/dL Arterial Blood Potassium (3.6-5.2) mmol/L Venous Blood Potassium 5.6 H (3.6-5.2) mmol/L Urine Color (YELLOW) Urine Appearance (CLEAR) Urine pH (4.7-8.0) Ur Specific [place] (1.005-1.035) Urine Protein (<30 mg/dL) mg/dL Urine Glucose (UA) (NEGATIVE) mg/dL Urine Ketones (NEGATIVE) mg/dL Urine Blood (NEGATIVE) Urine Nitrate (NEGATIVE) Urine Bilirubin (NEGATIVE) Urine Urobilinogen (<1 E.U./dL) E.U./dL Ur Leukocyte Esterase (NEGATIVE) Miguelangel/uL Ur Random Creatinine mg/dL U Random Total Protein mg/L Ur Random Sodium meq/L Digoxin (0.8-2.0) ng/mL Salicylates (2.0-20.0) mg/dL Urine Opiates Screen (NEGATIVE) Urine Methadone Screen (NEGATIVE) Acetaminophen (10.0-20.0) ug/ml Ur Barbiturates Screen (NEGATIVE) Ur Phencyclidine Scrn (NEGATIVE) Ur Amphetamines Screen (NEGATIVE) U Benzodiazepines Scrn (NEGATIVE) U Oth Cocaine Metabols (NEGATIVE) U Cannabinoids Screen (NEGATIVE) Alcohol, Quantitative (0-10) mg/dL 03/29/18 Range/Units 09:45 WBC (4.5-11.0) 10^3/uL RBC (3.5-6.1) 10^6/uL Hgb (14.0-18.0) g/dL Hct (42.0-52.0) % MCV (80.0-105.0) fl MCH (25.0-35.0) pg MCHC (31.0-37.0) g/dl RDW (11.5-14.5) % Plt Count (120.0-450.0) 10^3/uL MPV (7.0-11.0) fl Neut % (Auto) (50.0-68.0) % Lymph % (Auto) (22.0-35.0) % [place] % (Auto) (1.0-6.0) % Eos % (Auto) (1.5-5.0) % Baso % (Auto) (0.0-3.0) % Lymph # (Auto) (1.2-3.4) [place] # (Auto) (0.1-0.6) Eos # (Auto) (0.0-0.7) Baso # (Auto) (0.0-2.0) K/mm3 Absolute Neuts (auto) (1.4-6.5) PT (9.4-12.5) SECONDS INR APTT (26.9-38.3) Seconds pCO2 (35-45) mm/Hg pO2 (30-55) mm/Hg HCO3 (21-28) mmol/L ABG pH (7.35-7.45) ABG Total CO2 (22-28) mmol.L ABG O2 Saturation (95-98) % ABG O2 Content (15-23) ML/dl ABG Base Excess (-2.0-3.0) mmol/L ABG Hemoglobin (11.7-17.4) g/dL ABG Carboxyhemoglobin (0.5-1.5) % POC ABG HHb (Measured) (0-5) % ABG Methemoglobin (0.0-3.0) % ABG O2 Capacity (16-24) mL/dl ABG Potassium (3.6-5.2) mmol/L VBG pH (7.32-7.43) VBG pCO2 (40-60) VBG HCO3 (21-28) mmol/l VBG Total CO2 (22-28) mmol.L VBG O2 Sat (Calc) (40-65) % VBG Base Excess (0.0-2.0) mmol/L VBG Potassium (3.6-5.2) mmol/L Hgb O2 Saturation (95.0-98.0) % Sodium (132-148) mmol/L Chloride (98-107) mmol/L Glucose (75-110) mg/dl Lactate (0.7-2.1) mmol/L FiO2 % Crit Value Called To Crit Value Called By Blood Gas Notified Time Potassium (3.6-5.0) mmol/L Carbon Dioxide (21-33) mmol/L Anion Gap (10-20) BUN (7-21) mg/dL Creatinine (0.8-1.5) mg/dl Est GFR ( Amer) Est GFR (Non-Af Amer) POC Glucose (mg/dL) (65-110) mg/dL Random Glucose (70-110) mg/dL Hemoglobin A1c 8.8 H (4.2-6.5) % Serum Osmolality (272-300) mosm/kg Lactic Acid (0.7-2.1) mmol/L Calcium (8.4-10.5) mg/dL Phosphorus (2.5-4.5) mg/dL Magnesium (1.7-2.2) mg/dL Total Bilirubin (0.2-1.3) mg/dL AST (17-59) U/L ALT (7-56) U/L Alkaline Phosphatase (38-126) U/L Ammonia (9-33) umol/L Lactate Dehydrogenase (333-699) U/L Total Creatine Kinase (35-230) U/L Troponin I ng/mL Total Protein (5.8-8.3) g/dL Albumin (3.0-4.8) g/dL Globulin gm/dL Albumin/Globulin Ratio (1.1-1.8) Triglycerides (35-160) mg/dL Cholesterol (130-200) mg/dL LDL Cholesterol Direct (0-129) mg/dL HDL Cholesterol (29-60) mg/dL Arterial Blood Potassium (3.6-5.2) mmol/L Venous Blood Potassium (3.6-5.2) mmol/L Urine Color (YELLOW) Urine Appearance (CLEAR) Urine pH (4.7-8.0) Ur Specific [place] (1.005-1.035) Urine Protein (<30 mg/dL) mg/dL Urine Glucose (UA) (NEGATIVE) mg/dL Urine Ketones (NEGATIVE) mg/dL Urine Blood (NEGATIVE) Urine Nitrate (NEGATIVE) Urine Bilirubin (NEGATIVE) Urine Urobilinogen (<1 E.U./dL) E.U./dL Ur Leukocyte Esterase (NEGATIVE) Miguelangel/uL Ur Random Creatinine mg/dL U Random Total Protein mg/L Ur Random Sodium meq/L Digoxin (0.8-2.0) ng/mL Salicylates (2.0-20.0) mg/dL Urine Opiates Screen (NEGATIVE) Urine Methadone Screen (NEGATIVE) Acetaminophen (10.0-20.0) ug/ml Ur Barbiturates Screen (NEGATIVE) Ur Phencyclidine Scrn (NEGATIVE) Ur Amphetamines Screen (NEGATIVE) U Benzodiazepines Scrn (NEGATIVE) U Oth Cocaine Metabols (NEGATIVE) U Cannabinoids Screen (NEGATIVE) Alcohol, Quantitative (0-10) mg/dL Laboratory Results - last 24 hr 03/29/18 03/29/18 03/29/18 09:45 11:06 12:20 WBC RBC Hgb Hct MCV MCH MCHC RDW Plt Count MPV Neut % (Auto) Lymph % (Auto) [place] % (Auto) Eos % (Auto) Baso % (Auto) Lymph # (Auto) [place] # (Auto) Eos # (Auto) Baso # (Auto) Absolute Neuts (auto) PT INR APTT pCO2 pO2 67 H HCO3 ABG pH ABG Total CO2 ABG O2 Saturation ABG O2 Content ABG Base Excess ABG Hemoglobin ABG Carboxyhemoglobin POC ABG HHb (Measured) ABG Methemoglobin ABG O2 Capacity ABG Potassium VBG pH 7.30 L VBG pCO2 31.0 L VBG HCO3 15.3 L VBG Total CO2 16.3 L VBG O2 Sat (Calc) 92.4 H VBG Base Excess -9.9 L VBG Potassium 5.6 H Hgb O2 Saturation Sodium 129.0 L Chloride 96.0 L Glucose 269 H Lactate 4.7 H* FiO2 21.0 Crit Value Called To Michelle cooper Crit Value Called By Ab Blood Gas Notified Time 1225 Potassium Carbon Dioxide Anion Gap BUN Creatinine Est GFR ( Amer) Est GFR (Non-Af Amer) POC Glucose (mg/dL) 266 H Random Glucose Hemoglobin A1c 8.8 H Serum Osmolality Lactic Acid Calcium Phosphorus Magnesium Total Bilirubin AST ALT Alkaline Phosphatase Ammonia Lactate Dehydrogenase Total Creatine Kinase Troponin I Total Protein Albumin Globulin Albumin/Globulin Ratio Triglycerides Cholesterol LDL Cholesterol Direct HDL Cholesterol Arterial Blood Potassium Venous Blood Potassium 5.6 H Urine Color Urine Appearance Urine pH Ur Specific [place] Urine Protein Urine Glucose (UA) Urine Ketones Urine Blood Urine Nitrate Urine Bilirubin Urine Urobilinogen Ur Leukocyte Esterase Ur Random Creatinine U Random Total Protein Ur Random Sodium Digoxin Salicylates Urine Opiates Screen Urine Methadone Screen Acetaminophen Ur Barbiturates Screen Ur Phencyclidine Scrn Ur Amphetamines Screen U Benzodiazepines Scrn U Oth Cocaine Metabols U Cannabinoids Screen Alcohol, Quantitative 03/29/18 03/29/18 03/29/18 13:25 14:45 14:52 WBC RBC Hgb Hct MCV MCH MCHC RDW Plt Count MPV Neut % (Auto) Lymph % (Auto) [place] % (Auto) Eos % (Auto) Baso % (Auto) Lymph # (Auto) [place] # (Auto) Eos # (Auto) Baso # (Auto) Absolute Neuts (auto) PT INR APTT pCO2 23 L pO2 83.0 HCO3 8.2 L* ABG pH 7.16 L* ABG Total CO2 8.9 L ABG O2 Saturation 93.6 L ABG O2 Content ABG Base Excess -18.7 L ABG Hemoglobin ABG Carboxyhemoglobin POC ABG HHb (Measured) ABG Methemoglobin ABG O2 Capacity ABG Potassium 5.3 H VBG pH VBG pCO2 VBG HCO3 VBG Total CO2 VBG O2 Sat (Calc) VBG Base Excess VBG Potassium Hgb O2 Saturation Sodium 131.0 L Chloride 101.0 Glucose 193 H Lactate 9.8 H* FiO2 40.0 Crit Value Called To Betty hooker rn Crit Value Called By Blood Gas Notified Time 1452 Potassium Carbon Dioxide Anion Gap BUN Creatinine Est GFR ( Amer) Est GFR (Non-Af Amer) POC Glucose (mg/dL) 250 H Random Glucose Hemoglobin A1c Serum Osmolality Lactic Acid Calcium Phosphorus Magnesium Total Bilirubin AST ALT Alkaline Phosphatase Ammonia Lactate Dehydrogenase Total Creatine Kinase Troponin I 0.07 Total Protein Albumin Globulin Albumin/Globulin Ratio Triglycerides Cholesterol LDL Cholesterol Direct HDL Cholesterol Arterial Blood Potassium 5.3 H Venous Blood Potassium Urine Color Urine Appearance Urine pH Ur Specific [place] Urine Protein Urine Glucose (UA) Urine Ketones Urine Blood Urine Nitrate Urine Bilirubin Urine Urobilinogen Ur Leukocyte Esterase Ur Random Creatinine U Random Total Protein Ur Random Sodium Digoxin Salicylates Urine Opiates Screen Urine Methadone Screen Acetaminophen Ur Barbiturates Screen Ur Phencyclidine Scrn Ur Amphetamines Screen U Benzodiazepines Scrn U Oth Cocaine Metabols U Cannabinoids Screen Alcohol, Quantitative 03/29/18 03/29/18 03/29/18 15:15 15:30 15:30 WBC 6.8 RBC 4.72 Hgb 13.4 L Hct 40.9 L MCV 86.7 MCH 28.4 MCHC 32.8 RDW 17.6 H Plt Count 242 MPV 9.8 Neut % (Auto) 76.0 H Lymph % (Auto) 16.7 L [place] % (Auto) 6.5 H Eos % (Auto) 0.1 L Baso % (Auto) 0.7 Lymph # (Auto) 1.1 L [place] # (Auto) 0.4 Eos # (Auto) 0.0 Baso # (Auto) 0.05 Absolute Neuts (auto) 5.12 PT INR APTT pCO2 pO2 HCO3 ABG pH ABG Total CO2 ABG O2 Saturation ABG O2 Content ABG Base Excess ABG Hemoglobin ABG Carboxyhemoglobin POC ABG HHb (Measured) ABG Methemoglobin ABG O2 Capacity ABG Potassium VBG pH VBG pCO2 VBG HCO3 VBG Total CO2 VBG O2 Sat (Calc) VBG Base Excess VBG Potassium Hgb O2 Saturation Sodium 134 Chloride 98 Glucose Lactate FiO2 Crit Value Called To Crit Value Called By Blood Gas Notified Time Potassium 6.0 H* Carbon Dioxide 13 L Anion Gap 29 H BUN 64 H Creatinine 3.6 H Est GFR ( Amer) 20 Est GFR (Non-Af Amer) 17 POC Glucose (mg/dL) Random Glucose 197 H Hemoglobin A1c Serum Osmolality Lactic Acid 8.9 H* Calcium 8.4 Phosphorus 7.8 H Magnesium 2.5 H Total Bilirubin 1.2 AST 49 ALT 15 Alkaline Phosphatase 77 Ammonia Lactate Dehydrogenase Total Creatine Kinase Troponin I Total Protein 7.2 Albumin 4.0 Globulin 3.2 Albumin/Globulin Ratio 1.2 Triglycerides Cholesterol LDL Cholesterol Direct HDL Cholesterol Arterial Blood Potassium Venous Blood Potassium Urine Color Urine Appearance Urine pH Ur Specific [place] Urine Protein Urine Glucose (UA) Urine Ketones Urine Blood Urine Nitrate Urine Bilirubin Urine Urobilinogen Ur Leukocyte Esterase Ur Random Creatinine U Random Total Protein Ur Random Sodium Digoxin Salicylates Urine Opiates Screen Urine Methadone Screen Acetaminophen Ur Barbiturates Screen Ur Phencyclidine Scrn Ur Amphetamines Screen U Benzodiazepines Scrn U Oth Cocaine Metabols U Cannabinoids Screen Alcohol, Quantitative 03/29/18 03/29/18 03/29/18 15:30 15:40 16:27 WBC RBC Hgb Hct MCV MCH MCHC RDW Plt Count MPV Neut % (Auto) Lymph % (Auto) [place] % (Auto) Eos % (Auto) Baso % (Auto) Lymph # (Auto) [place] # (Auto) Eos # (Auto) Baso # (Auto) Absolute Neuts (auto) PT 158.9 H INR 14.32 H* APTT 76.4 H pCO2 pO2 HCO3 ABG pH ABG Total CO2 ABG O2 Saturation ABG O2 Content ABG Base Excess ABG Hemoglobin ABG Carboxyhemoglobin POC ABG HHb (Measured) ABG Methemoglobin ABG O2 Capacity ABG Potassium VBG pH VBG pCO2 VBG HCO3 VBG Total CO2 VBG O2 Sat (Calc) VBG Base Excess VBG Potassium Hgb O2 Saturation Sodium Chloride Glucose Lactate FiO2 Crit Value Called To Crit Value Called By Blood Gas Notified Time Potassium Carbon Dioxide Anion Gap BUN Creatinine Est GFR ( Amer) Est GFR (Non-Af Amer) POC Glucose (mg/dL) Random Glucose Hemoglobin A1c Serum Osmolality Lactic Acid Calcium Phosphorus Magnesium Total Bilirubin AST ALT Alkaline Phosphatase Ammonia Lactate Dehydrogenase 524 Total Creatine Kinase 181 Troponin I Total Protein Albumin Globulin Albumin/Globulin Ratio Triglycerides Cholesterol LDL Cholesterol Direct HDL Cholesterol Arterial Blood Potassium Venous Blood Potassium Urine Color Yellow Urine Appearance Clear Urine pH 5.5 Ur Specific [place] >= 1.030 Urine Protein Negative Urine Glucose (UA) Negative Urine Ketones Negative Urine Blood Negative Urine Nitrate Negative Urine Bilirubin Negative Urine Urobilinogen 0.2 Ur Leukocyte Esterase Negative Ur Random Creatinine U Random Total Protein Ur Random Sodium Digoxin Salicylates Urine Opiates Screen Urine Methadone Screen Acetaminophen Ur Barbiturates Screen Ur Phencyclidine Scrn Ur Amphetamines Screen U Benzodiazepines Scrn U Oth Cocaine Metabols U Cannabinoids Screen Alcohol, Quantitative 03/29/18 03/29/18 03/29/18 17:20 17:30 17:30 WBC RBC Hgb Hct MCV MCH MCHC RDW Plt Count MPV Neut % (Auto) Lymph % (Auto) [place] % (Auto) Eos % (Auto) Baso % (Auto) Lymph # (Auto) [place] # (Auto) Eos # (Auto) Baso # (Auto) Absolute Neuts (auto) PT INR APTT pCO2 pO2 HCO3 ABG pH ABG Total CO2 ABG O2 Saturation ABG O2 Content ABG Base Excess ABG Hemoglobin ABG Carboxyhemoglobin POC ABG HHb (Measured) ABG Methemoglobin ABG O2 Capacity ABG Potassium VBG pH VBG pCO2 VBG HCO3 VBG Total CO2 VBG O2 Sat (Calc) VBG Base Excess VBG Potassium Hgb O2 Saturation Sodium Chloride Glucose Lactate FiO2 Crit Value Called To Crit Value Called By Blood Gas Notified Time Potassium Carbon Dioxide Anion Gap BUN Creatinine Est GFR ( Amer) Est GFR (Non-Af Amer) POC Glucose (mg/dL) Random Glucose Hemoglobin A1c Serum Osmolality Lactic Acid Calcium Phosphorus Magnesium Total Bilirubin AST ALT Alkaline Phosphatase Ammonia Lactate Dehydrogenase Total Creatine Kinase Troponin I Total Protein Albumin Globulin Albumin/Globulin Ratio Triglycerides Cholesterol LDL Cholesterol Direct HDL Cholesterol Arterial Blood Potassium Venous Blood Potassium Urine Color Urine Appearance Urine pH Ur Specific [place] Urine Protein Urine Glucose (UA) Urine Ketones Urine Blood Urine Nitrate Urine Bilirubin Urine Urobilinogen Ur Leukocyte Esterase Ur Random Creatinine U Random Total Protein 14 Ur Random Sodium Digoxin < 0.4 L Salicylates Urine Opiates Screen Negative Urine Methadone Screen Negative Acetaminophen Ur Barbiturates Screen Negative Ur Phencyclidine Scrn Negative Ur Amphetamines Screen Negative U Benzodiazepines Scrn Negative U Oth Cocaine Metabols Negative U Cannabinoids Screen Negative Alcohol, Quantitative 03/29/18 03/29/18 03/29/18 18:30 18:30 18:30 WBC RBC Hgb Hct MCV MCH MCHC RDW Plt Count MPV Neut % (Auto) Lymph % (Auto) Lipscomb % (Auto) Eos % (Auto) Baso % (Auto) Lymph # (Auto) Lipscomb # (Auto) Eos # (Auto) Baso # (Auto) Absolute Neuts (auto) PT INR APTT pCO2 pO2 173 H HCO3 ABG pH ABG Total CO2 ABG O2 Saturation ABG O2 Content ABG Base Excess ABG Hemoglobin ABG Carboxyhemoglobin POC ABG HHb (Measured) ABG Methemoglobin ABG O2 Capacity ABG Potassium VBG pH 7.25 L VBG pCO2 30.0 L VBG HCO3 13.2 L VBG Total CO2 14.1 L VBG O2 Sat (Calc) 97.2 H VBG Base Excess -12.7 L VBG Potassium 6.6 H* Hgb O2 Saturation Sodium 136 131.0 L Chloride 102 96.0 L Glucose 189 H Lactate 11.4 H* FiO2 21.0 Crit Value Called To Aimee giraldo Crit Value Called By Atc Blood Gas Notified Time 1900 Potassium 5.5 H Carbon Dioxide 13 L Anion Gap 26 H BUN 63 H Creatinine 3.7 H Est GFR ( Amer) 20 Est GFR (Non-Af Amer) 16 POC Glucose (mg/dL) Random Glucose 110 Hemoglobin A1c Serum Osmolality Lactic Acid 10.0 H* Calcium 8.3 L Phosphorus 7.1 H Magnesium 2.4 H Total Bilirubin 1.2 AST 126 H D ALT 27 Alkaline Phosphatase 73 Ammonia Lactate Dehydrogenase Total Creatine Kinase Troponin I Total Protein 6.9 Albumin 3.9 Globulin 3.1 Albumin/Globulin Ratio 1.3 Triglycerides Cholesterol LDL Cholesterol Direct HDL Cholesterol Arterial Blood Potassium Venous Blood Potassium 6.6 H* Urine Color Urine Appearance Urine pH Ur Specific [place] Urine Protein Urine Glucose (UA) Urine Ketones Urine Blood Urine Nitrate Urine Bilirubin Urine Urobilinogen Ur Leukocyte Esterase Ur Random Creatinine U Random Total Protein Ur Random Sodium Digoxin Salicylates Urine Opiates Screen Urine Methadone Screen Acetaminophen Ur Barbiturates Screen Ur Phencyclidine Scrn Ur Amphetamines Screen U Benzodiazepines Scrn U Oth Cocaine Metabols U Cannabinoids Screen Alcohol, Quantitative 03/29/18 03/29/18 03/29/18 18:50 21:53 22:30 WBC RBC Hgb Hct MCV MCH MCHC RDW Plt Count MPV Neut % (Auto) Lymph % (Auto) Lipscomb % (Auto) Eos % (Auto) Baso % (Auto) Lymph # (Auto) [place]comb # (Auto) Eos # (Auto) Baso # (Auto) Absolute Neuts (auto) PT INR APTT pCO2 pO2 HCO3 ABG pH ABG Total CO2 ABG O2 Saturation ABG O2 Content ABG Base Excess ABG Hemoglobin ABG Carboxyhemoglobin POC ABG HHb (Measured) ABG Methemoglobin ABG O2 Capacity ABG Potassium VBG pH VBG pCO2 VBG HCO3 VBG Total CO2 VBG O2 Sat (Calc) VBG Base Excess VBG Potassium Hgb O2 Saturation Sodium Chloride Glucose Lactate FiO2 Crit Value Called To Crit Value Called By Blood Gas Notified Time Potassium Carbon Dioxide Anion Gap BUN Creatinine Est GFR ( Amer) Est GFR (Non-Af Amer) POC Glucose (mg/dL) 82 Random Glucose Hemoglobin A1c Serum Osmolality 308 H Lactic Acid Calcium Phosphorus Magnesium Total Bilirubin AST ALT Alkaline Phosphatase Ammonia Lactate Dehydrogenase Total Creatine Kinase Troponin I Total Protein Albumin Globulin Albumin/Globulin Ratio Triglycerides Cholesterol LDL Cholesterol Direct HDL Cholesterol Arterial Blood Potassium Venous Blood Potassium Urine Color Urine Appearance Urine pH Ur Specific [place] Urine Protein Urine Glucose (UA) Urine Ketones Urine Blood Urine Nitrate Urine Bilirubin Urine Urobilinogen Ur Leukocyte Esterase Ur Random Creatinine 150 U Random Total Protein Ur Random Sodium < 5 Digoxin Salicylates Urine Opiates Screen Urine Methadone Screen Acetaminophen Ur Barbiturates Screen Ur Phencyclidine Scrn Ur Amphetamines Screen U Benzodiazepines Scrn U Oth Cocaine Metabols U Cannabinoids Screen Alcohol, Quantitative 03/29/18 03/29/18 03/30/18 22:30 22:30 05:15 WBC RBC Hgb Hct MCV MCH MCHC RDW Plt Count MPV Neut % (Auto) Lymph % (Auto) Lipscomb % (Auto) Eos % (Auto) Baso % (Auto) Lymph # (Auto) [place]comb # (Auto) Eos # (Auto) Baso # (Auto) Absolute Neuts (auto) PT INR APTT pCO2 25 L pO2 63.0 L HCO3 12.9 L ABG pH 7.32 L ABG Total CO2 13.7 L ABG O2 Saturation 91.1 L ABG O2 Content 17.0 ABG Base Excess -11.4 L ABG Hemoglobin 13.4 ABG Carboxyhemoglobin 0.8 POC ABG HHb (Measured) 8.8 H ABG Methemoglobin 0.1 ABG O2 Capacity 18.7 ABG Potassium VBG pH VBG pCO2 VBG HCO3 VBG Total CO2 VBG O2 Sat (Calc) VBG Base Excess VBG Potassium Hgb O2 Saturation 90.3 L Sodium Chloride Glucose Lactate FiO2 40.0 Crit Value Called To Crit Value Called By Blood Gas Notified Time Potassium Carbon Dioxide Anion Gap BUN Creatinine Est GFR ( Amer) Est GFR (Non-Af Amer) POC Glucose (mg/dL) Random Glucose Hemoglobin A1c Serum Osmolality Lactic Acid Calcium Phosphorus Magnesium Total Bilirubin AST ALT Alkaline Phosphatase Ammonia Lactate Dehydrogenase Total Creatine Kinase Troponin I Total Protein Albumin Globulin Albumin/Globulin Ratio Triglycerides Cholesterol LDL Cholesterol Direct HDL Cholesterol Arterial Blood Potassium Venous Blood Potassium Urine Color Urine Appearance Urine pH Ur Specific [place] Urine Protein Urine Glucose (UA) Urine Ketones Urine Blood Urine Nitrate Urine Bilirubin Urine Urobilinogen Ur Leukocyte Esterase Ur Random Creatinine U Random Total Protein Ur Random Sodium Digoxin Salicylates < 1 L Urine Opiates Screen Urine Methadone Screen Acetaminophen < 10.0 L Ur Barbiturates Screen Ur Phencyclidine Scrn Ur Amphetamines Screen U Benzodiazepines Scrn U Oth Cocaine Metabols U Cannabinoids Screen Alcohol, Quantitative < 10 03/30/18 03/30/18 03/30/18 06:00 06:00 06:00 WBC 12.9 H D RBC 4.72 Hgb 13.3 L Hct 41.3 L MCV 87.5 MCH 28.2 MCHC 32.2 RDW 18.1 H Plt Count 179 MPV 10.7 Neut % (Auto) 83.8 H Lymph % (Auto) 5.3 L Lipscomb % (Auto) 10.8 H Eos % (Auto) 0.0 L Baso % (Auto) 0.1 Lymph # (Auto) 0.7 L Lipscomb # (Auto) 1.4 H Eos # (Auto) 0.0 Baso # (Auto) 0.01 Absolute Neuts (auto) 10.81 H PT INR APTT pCO2 pO2 HCO3 ABG pH ABG Total CO2 ABG O2 Saturation ABG O2 Content ABG Base Excess ABG Hemoglobin ABG Carboxyhemoglobin POC ABG HHb (Measured) ABG Methemoglobin ABG O2 Capacity ABG Potassium VBG pH VBG pCO2 VBG HCO3 VBG Total CO2 VBG O2 Sat (Calc) VBG Base Excess VBG Potassium Hgb O2 Saturation Sodium 140 Chloride 100 Glucose Lactate FiO2 Crit Value Called To Crit Value Called By Blood Gas Notified Time Potassium 6.2 H* Carbon Dioxide 16 L Anion Gap 30 H BUN 67 H Creatinine 4.3 H Est GFR ( Amer) 17 Est GFR (Non-Af Amer) 14 POC Glucose (mg/dL) Random Glucose 51 L Hemoglobin A1c Serum Osmolality Lactic Acid Calcium 8.4 Phosphorus 7.9 H Magnesium 2.3 H Total Bilirubin 2.7 H AST 3530 H ALT 928 H Alkaline Phosphatase 101 Ammonia Lactate Dehydrogenase Total Creatine Kinase Troponin I Total Protein 7.7 Albumin 4.3 Globulin 3.4 Albumin/Globulin Ratio 1.3 Triglycerides 108 Cholesterol 120 L LDL Cholesterol Direct 78 HDL Cholesterol 24 L Arterial Blood Potassium Venous Blood Potassium Urine Color Urine Appearance Urine pH Ur Specific [place] Urine Protein Urine Glucose (UA) Urine Ketones Urine Blood Urine Nitrate Urine Bilirubin Urine Urobilinogen Ur Leukocyte Esterase Ur Random Creatinine U Random Total Protein Ur Random Sodium Digoxin Salicylates Urine Opiates Screen Urine Methadone Screen Acetaminophen Ur Barbiturates Screen Ur Phencyclidine Scrn Ur Amphetamines Screen U Benzodiazepines Scrn U Oth Cocaine Metabols U Cannabinoids Screen Alcohol, Quantitative 03/30/18 03/30/18 03/30/18 06:00 06:00 07:49 WBC RBC Hgb Hct MCV MCH MCHC RDW Plt Count MPV Neut % (Auto) Lymph % (Auto) [place]comb % (Auto) Eos % (Auto) Baso % (Auto) Lymph # (Auto) [place]comb # (Auto) Eos # (Auto) Baso # (Auto) Absolute Neuts (auto) PT 29.0 H INR 2.57 APTT pCO2 pO2 HCO3 ABG pH ABG Total CO2 ABG O2 Saturation ABG O2 Content ABG Base Excess ABG Hemoglobin ABG Carboxyhemoglobin POC ABG HHb (Measured) ABG Methemoglobin ABG O2 Capacity ABG Potassium VBG pH VBG pCO2 VBG HCO3 VBG Total CO2 VBG O2 Sat (Calc) VBG Base Excess VBG Potassium Hgb O2 Saturation Sodium Chloride Glucose Lactate FiO2 Crit Value Called To Crit Value Called By Blood Gas Notified Time Potassium Carbon Dioxide Anion Gap BUN Creatinine Est GFR ( Amer) Est GFR (Non-Af Amer) POC Glucose (mg/dL) 153 H Random Glucose Hemoglobin A1c Serum Osmolality Lactic Acid 10.1 H* Calcium Phosphorus Magnesium Total Bilirubin AST ALT Alkaline Phosphatase Ammonia Lactate Dehydrogenase Total Creatine Kinase Troponin I Total Protein Albumin Globulin Albumin/Globulin Ratio Triglycerides Cholesterol LDL Cholesterol Direct HDL Cholesterol Arterial Blood Potassium Venous Blood Potassium Urine Color Urine Appearance Urine pH Ur Specific [place] Urine Protein Urine Glucose (UA) Urine Ketones Urine Blood Urine Nitrate Urine Bilirubin Urine Urobilinogen Ur Leukocyte Esterase Ur Random Creatinine U Random Total Protein Ur Random Sodium Digoxin Salicylates Urine Opiates Screen Urine Methadone Screen Acetaminophen Ur Barbiturates Screen Ur Phencyclidine Scrn Ur Amphetamines Screen U Benzodiazepines Scrn U Oth Cocaine Metabols U Cannabinoids Screen Alcohol, Quantitative 03/30/18 09:00 WBC RBC Hgb Hct MCV MCH MCHC RDW Plt Count MPV Neut % (Auto) Lymph % (Auto) Lipscomb % (Auto) Eos % (Auto) Baso % (Auto) Lymph # (Auto) [place]comb # (Auto) Eos # (Auto) Baso # (Auto) Absolute Neuts (auto) PT INR APTT pCO2 pO2 HCO3 ABG pH ABG Total CO2 ABG O2 Saturation ABG O2 Content ABG Base Excess ABG Hemoglobin ABG Carboxyhemoglobin POC ABG HHb (Measured) ABG Methemoglobin ABG O2 Capacity ABG Potassium VBG pH VBG pCO2 VBG HCO3 VBG Total CO2 VBG O2 Sat (Calc) VBG Base Excess VBG Potassium Hgb O2 Saturation Sodium Chloride Glucose Lactate FiO2 Crit Value Called To Crit Value Called By Blood Gas Notified Time Potassium Carbon Dioxide Anion Gap BUN Creatinine Est GFR ( Amer) Est GFR (Non-Af Amer) POC Glucose (mg/dL) Random Glucose Hemoglobin A1c Serum Osmolality Lactic Acid Calcium Phosphorus Magnesium Total Bilirubin AST ALT Alkaline Phosphatase Ammonia 78 H Lactate Dehydrogenase Total Creatine Kinase Troponin I Total Protein Albumin Globulin Albumin/Globulin Ratio Triglycerides Cholesterol LDL Cholesterol Direct HDL Cholesterol Arterial Blood Potassium Venous Blood Potassium Urine Color Urine Appearance Urine pH Ur Specific [place] Urine Protein Urine Glucose (UA) Urine Ketones Urine Blood Urine Nitrate Urine Bilirubin Urine Urobilinogen Ur Leukocyte Esterase Ur Random Creatinine U Random Total Protein Ur Random Sodium Digoxin Salicylates Urine Opiates Screen Urine Methadone Screen Acetaminophen Ur Barbiturates Screen Ur Phencyclidine Scrn Ur Amphetamines Screen U Benzodiazepines Scrn U Oth Cocaine Metabols U Cannabinoids Screen Alcohol, Quantitative Radiology Impressions: Radiology Impressions Renal Ultrasound 03/29/18 08:49 IMPRESSION: Unremarkable renal sonogram. Extensive ascites. Chest X-Ray 03/29/18 15:08 IMPRESSION: Mild cardiomegaly moderate vascular congestion right greater than left EKG/Cardiology Studies: Cardiology / EKG Studies 03/29/18 13:23 EKG [ELECTROCARDIOGRAM] Stat Comment: Reason For Exam: sudden back pain Fingerstick Blood Sugar Results: 154 Review of Systems - Review of Systems Systems not reviewed;Unavailable: Altered Mental Status Critical Care Progress Note - Ventilator Checklist Head of Bed 30 Degrees: Yes PUD Prophalyxis: Yes DVT Prophylaxis: Yes - Nutrition Nutrition: Nutrition Category Date Time Status Heart Healthy Diet [DIET] Diets 03/28/18 Breakfast Active Assessment/Plan - Assessment and Plan (Free Text) Assessment: 72 year old with past medical history of hypertension, hyperlipidemia, diabetes mellitus type II, gout, CAD, atrial fibrillation, congestive heart failure (last 10%) presents with diagnosis of MODS with congestive heart failure, acute liver injury, and acute renal failure complicated with anion gap metabolic acidosis with elevated lactate. Patient prognosis is poor and patient is DNR/DNI Plan: Cardiogenic shock 2/2 to Systolic Congestive Heart Failure -Last echocardiogram from 03/29 shows EF of 10% -BNP: 10,500. -Troponin negative at this time, but lactate elevated at 10.1 -Hold all beta blockers and antihypertensives due to hypotension -Patient with shock possibly attributable to congestive heart failure -Hospice has been consulted for this patient. At this time, patient is currently on levophed. Levophed will be discontinued once hospice has spoken with patient and health care proxy. -Hold all antihypertensives due to hypotension Acute liver injury -AST/ALT elevated at 3530 and 928 -Bilirubin elevated at 2.7 -Renal ultrasound and abdominal CT show ascites possibly due to hepatic component. -Would avoid paracentesis at this time due to avoidance of aggressive therapy at this time as per health care proxy. -Acute liver injury possibly due to shock liver. -Elevated lactate possibly due to hepatic injury -Continue with blood pressure management to ensure adequate perfusion of the liver. Avoid hepatotoxic medications. Acute renal failure complicated with anion gap metabolic acidosis -BUN/Cr: 67/4.3 with baseline creatinine of 1.0 -Renal ultrasound shows no acute abnormalities of the kidneys -Anion gap is currently 26 -Anion gap likely 2/2 to elevated lactate from hypoperfusion to organs from the congestive heart failure. -Unlikely medication induced elevation of lactate. -Due to acidosis with pH of 7.16 yesterday, D5W with 3 amps of bicarbonate drip was started yesterday. -Tachypnea likely due to metabolic acidosis. -Would avoid hemodialysis due to avoidance of aggressive therapy at this time as per health care proxy. Diabetes mellitus type II -Glucose: 153 -Low SSI -Continue to monitor Supratherapeutic INR -Reduced to 2.57 from 14.32 yesterday status post 4 U of FFP and Vitamin K 10 Atrial fibrillation -EKG from this admission confirms diagnosis -Anticoagulation held due to supratherapeutic INR -Hold all rate controlling antihypertensive agents due to cardiogenic shock. History of hypertension -Hold all anti-hypertensives due to cardiogenic shock History of coronary artery disease -Hold all anti-hypertensives due to cardiogenic shock -Aspirin, plavix not given due to supratherapeutic INR Delirium -Patient is currently on a precedex drip due to severe agitation. GI prophylaxis: pepcid 20 mg daily DVT prophylaxis: SCD Disposition: At this time, patient prognosis is critical. Patient has been DNR/DNI. After talking to health care proxy and palliative care, healthy care proxy would like to make patient hospise care at this time. Health care proxy would like no aggressive therapy at this time including no dialysis and no paracentesis. Hospise team will follow up with patient and health care proxy likely later today for further plans. Patient plan discussed with attending. - Date & Time Date: 03/30/18 Time: 11:23 <Nnamdi Johnston - Last Filed: 03/30/18 12:12> CCU Objective - Vital Signs / Intake & Output Intake and Output (Last 8hrs): Intake & Output 03/29/18 03/30/18 03/30/18 22:59 06:59 14:59 Intake Total 1400 Output Total 100 Balance 1300 Weight 216 lb Intake: Blood Product 400 Other 1000 Output: Urine 100 Urine, Voided 100 Stool 0 - Medications Active Medications: Active Medications Generic Name Dose Route Start Last Admin Trade Name Freq PRN Reason Stop Dose Admin Albuterol/Ipratropium 3 ml 03/29/18 09:00 03/30/18 07:38 Duoneb 3 Mg/0.5 Mg (3 Ml) Ud IH 3 ml [id number] JASWANT Administration Albuterol/Ipratropium 3 ml 03/29/18 09:47 03/29/18 14:30 Duoneb 3 Mg/0.5 Mg (3 Ml) Ud IH 3 ml [id number] PRN Administration Shortness of Breath Dextrose 0 ml 03/30/18 07:58 Dextrose 50% Inj IV STAT PRN Hypoglycemia Protocol Protocol Digoxin 0.125 mg 03/29/18 14:00 03/29/18 15:44 Digoxin PO Not Given 1400 JASWANT Famotidine 20 mg 03/29/18 10:52 03/30/18 09:23 Pepcid PO 20 mg DAILY JASWANT Administration NOREPINEPHRINE BIT/0.9 % NACL 4 mg in 250 mls @ 15 mls/hr 03/29/18 15:22 0208/10 02:56 Levophed 4 Mg/ 250 Ml Ns Premixed IV 4 mcg/min .[id number] PRN 15 mls/hr TITRATE PER MD ORDER Administration Protocol 4 MCG/MIN Meropenem/Sodium Chloride 500 mg in 50 mls @ 100 mls/hr 03/29/18 22:00 03/30/18 09:27 Merrem Iv 500 Mg/Ns 50 Ml IVPB 04/05/18 22:01 100 mls/hr Q12 JASWANT Administration Protocol Sodium Bicarbonate 150 meq/ 1,150 mls @ 100 mls/hr 03/30/18 05:00 Dextrose IV .[id number] JASWANT Dextrose 1,000 mls @ 0 mls/hr 03/30/18 07:58 Dextrose 5% In Water 1000 Ml IV .Q0M PRN Hypoglycemia Protocol Protocol Per Protocol Dexmedetomidine HCl 400 mcg in 100 mls @ 4.899 mls/hr 03/30/18 10:49 03/30/18 11:19 Precedex 400mcg/100ml IV 0.2 mcg/kg/hr .[id number] PRN 4.899 mls/hr Agitation Administration Protocol 0.2 MCG/KG/HR Insulin Human Lispro 0 units 03/29/18 11:30 03/30/18 08:05 Humalog Low SC Not Given [facility]S [facility] Protocol Metoprolol Tartrate 50 mg 03/29/18 17:00 03/30/18 09:02 Lopressor PO Not Given BRKDIN [facility] Mupirocin 0 gm 03/29/18 18:00 Bactroban Ointment TOP BID JASWANT - Patient Studies Lab Studies: Microbiology Studies 03/28/18 15:00 Blood Culture - Preliminary Blood NO GROWTH AFTER 24 HOURS 03/28/18 14:45 Blood Culture - Preliminary Blood NO GROWTH AFTER 24 HOURS Lab Studies 03/30/18 03/30/18 03/30/18 Range/Units 09:00 07:49 06:00 WBC (4.5-11.0) 10^3/uL RBC (3.5-6.1) 10^6/uL Hgb (14.0-18.0) g/dL Hct (42.0-52.0) % MCV (80.0-105.0) fl MCH (25.0-35.0) pg MCHC (31.0-37.0) g/dl RDW (11.5-14.5) % Plt Count (120.0-450.0) 10^3/uL MPV (7.0-11.0) fl Neut % (Auto) (50.0-68.0) % Lymph % (Auto) (22.0-35.0) % Lipscomb % (Auto) (1.0-6.0) % Eos % (Auto) (1.5-5.0) % Baso % (Auto) (0.0-3.0) % Lymph # (Auto) (1.2-3.4) [place]comb # (Auto) (0.1-0.6) Eos # (Auto) (0.0-0.7) Baso # (Auto) (0.0-2.0) K/mm3 Absolute Neuts (auto) (1.4-6.5) PT (9.4-12.5) SECONDS INR APTT (26.9-38.3) Seconds pCO2 (35-45) mm/Hg pO2 (30-55) mm/Hg HCO3 (21-28) mmol/L ABG pH (7.35-7.45) ABG Total CO2 (22-28) mmol.L ABG O2 Saturation (95-98) % ABG O2 Content (15-23) ML/dl ABG Base Excess (-2.0-3.0) mmol/L ABG Hemoglobin (11.7-17.4) g/dL ABG Carboxyhemoglobin (0.5-1.5) % POC ABG HHb (Measured) (0-5) % ABG Methemoglobin (0.0-3.0) % ABG O2 Capacity (16-24) mL/dl ABG Potassium (3.6-5.2) mmol/L VBG pH (7.32-7.43) VBG pCO2 (40-60) VBG HCO3 (21-28) mmol/l VBG Total CO2 (22-28) mmol.L VBG O2 Sat (Calc) (40-65) % VBG Base Excess (0.0-2.0) mmol/L VBG Potassium (3.6-5.2) mmol/L Hgb O2 Saturation (95.0-98.0) % Sodium (132-148) mmol/L Chloride (98-107) mmol/L Glucose (75-110) mg/dl Lactate (0.7-2.1) mmol/L FiO2 % Crit Value Called To Crit Value Called By Blood Gas Notified Time Potassium (3.6-5.0) mmol/L Carbon Dioxide (21-33) mmol/L Anion Gap (10-20) BUN (7-21) mg/dL Creatinine (0.8-1.5) mg/dl Est GFR ( Amer) Est GFR (Non-Af Amer) POC Glucose (mg/dL) 153 H (65-110) mg/dL Random Glucose (70-110) mg/dL Hemoglobin A1c (4.2-6.5) % Serum Osmolality (272-300) mosm/kg Lactic Acid 10.1 H* (0.7-2.1) mmol/L Calcium (8.4-10.5) mg/dL Phosphorus (2.5-4.5) mg/dL Magnesium (1.7-2.2) mg/dL Total Bilirubin (0.2-1.3) mg/dL AST (17-59) U/L ALT (7-56) U/L Alkaline Phosphatase (38-126) U/L Ammonia 78 H (9-33) umol/L Lactate Dehydrogenase (333-699) U/L Total Creatine Kinase (35-230) U/L Troponin I ng/mL Total Protein (5.8-8.3) g/dL Albumin (3.0-4.8) g/dL Globulin gm/dL Albumin/Globulin Ratio (1.1-1.8) Triglycerides (35-160) mg/dL Cholesterol (130-200) mg/dL LDL Cholesterol Direct (0-129) mg/dL HDL Cholesterol (29-60) mg/dL Arterial Blood Potassium (3.6-5.2) mmol/L Venous Blood Potassium (3.6-5.2) mmol/L Urine Color (YELLOW) Urine Appearance (CLEAR) Urine pH (4.7-8.0) Ur Specific [place] (1.005-1.035) Urine Protein (<30 mg/dL) mg/dL Urine Glucose (UA) (NEGATIVE) mg/dL Urine Ketones (NEGATIVE) mg/dL Urine Blood (NEGATIVE) Urine Nitrate (NEGATIVE) Urine Bilirubin (NEGATIVE) Urine Urobilinogen (<1 E.U./dL) E.U./dL Ur Leukocyte Esterase (NEGATIVE) Miguelangel/uL Ur Random Creatinine mg/dL U Random Total Protein mg/L Ur Random Sodium meq/L Digoxin (0.8-2.0) ng/mL Salicylates (2.0-20.0) mg/dL Urine Opiates Screen (NEGATIVE) Urine Methadone Screen (NEGATIVE) Acetaminophen (10.0-20.0) ug/ml Ur Barbiturates Screen (NEGATIVE) Ur Phencyclidine Scrn (NEGATIVE) Ur Amphetamines Screen (NEGATIVE) U Benzodiazepines Scrn (NEGATIVE) U Oth Cocaine Metabols (NEGATIVE) U Cannabinoids Screen (NEGATIVE) Alcohol, Quantitative (0-10) mg/dL 03/30/18 03/30/18 03/30/18 Range/Units 06:00 06:00 06:00 WBC (4.5-11.0) 10^3/uL RBC (3.5-6.1) 10^6/uL Hgb (14.0-18.0) g/dL Hct (42.0-52.0) % MCV (80.0-105.0) fl MCH (25.0-35.0) pg MCHC (31.0-37.0) g/dl RDW (11.5-14.5) % Plt Count (120.0-450.0) 10^3/uL MPV (7.0-11.0) fl Neut % (Auto) (50.0-68.0) % Lymph % (Auto) (22.0-35.0) % [place]comb % (Auto) (1.0-6.0) % Eos % (Auto) (1.5-5.0) % Baso % (Auto) (0.0-3.0) % Lymph # (Auto) (1.2-3.4) [place] # (Auto) (0.1-0.6) Eos # (Auto) (0.0-0.7) Baso # (Auto) (0.0-2.0) K/mm3 Absolute Neuts (auto) (1.4-6.5) PT 29.0 H (9.4-12.5) SECONDS INR 2.57 APTT (26.9-38.3) Seconds pCO2 (35-45) mm/Hg pO2 (30-55) mm/Hg HCO3 (21-28) mmol/L ABG pH (7.35-7.45) ABG Total CO2 (22-28) mmol.L ABG O2 Saturation (95-98) % ABG O2 Content (15-23) ML/dl ABG Base Excess (-2.0-3.0) mmol/L ABG Hemoglobin (11.7-17.4) g/dL ABG Carboxyhemoglobin (0.5-1.5) % POC ABG HHb (Measured) (0-5) % ABG Methemoglobin (0.0-3.0) % ABG O2 Capacity (16-24) mL/dl ABG Potassium (3.6-5.2) mmol/L VBG pH (7.32-7.43) VBG pCO2 (40-60) VBG HCO3 (21-28) mmol/l VBG Total CO2 (22-28) mmol.L VBG O2 Sat (Calc) (40-65) % VBG Base Excess (0.0-2.0) mmol/L VBG Potassium (3.6-5.2) mmol/L Hgb O2 Saturation (95.0-98.0) % Sodium 140 (132-148) mmol/L Chloride 100 (98-107) mmol/L Glucose (75-110) mg/dl Lactate (0.7-2.1) mmol/L FiO2 % Crit Value Called To Crit Value Called By Blood Gas Notified Time Potassium 6.2 H* (3.6-5.0) mmol/L Carbon Dioxide 16 L (21-33) mmol/L Anion Gap 30 H (10-20) BUN 67 H (7-21) mg/dL Creatinine 4.3 H (0.8-1.5) mg/dl Est GFR ( Amer) 17 Est GFR (Non-Af Amer) 14 POC Glucose (mg/dL) (65-110) mg/dL Random Glucose 51 L (70-110) mg/dL Hemoglobin A1c (4.2-6.5) % Serum Osmolality (272-300) mosm/kg Lactic Acid (0.7-2.1) mmol/L Calcium 8.4 (8.4-10.5) mg/dL Phosphorus 7.9 H (2.5-4.5) mg/dL Magnesium 2.3 H (1.7-2.2) mg/dL Total Bilirubin 2.7 H (0.2-1.3) mg/dL AST 3530 H (17-59) U/L ALT 928 H (7-56) U/L Alkaline Phosphatase 101 (38-126) U/L Ammonia (9-33) umol/L Lactate Dehydrogenase (333-699) U/L Total Creatine Kinase (35-230) U/L Troponin I ng/mL Total Protein 7.7 (5.8-8.3) g/dL Albumin 4.3 (3.0-4.8) g/dL Globulin 3.4 gm/dL Albumin/Globulin Ratio 1.3 (1.1-1.8) Triglycerides 108 (35-160) mg/dL Cholesterol 120 L (130-200) mg/dL LDL Cholesterol Direct 78 (0-129) mg/dL HDL Cholesterol 24 L (29-60) mg/dL Arterial Blood Potassium (3.6-5.2) mmol/L Venous Blood Potassium (3.6-5.2) mmol/L Urine Color (YELLOW) Urine Appearance (CLEAR) Urine pH (4.7-8.0) Ur Specific [place] (1.005-1.035) Urine Protein (<30 mg/dL) mg/dL Urine Glucose (UA) (NEGATIVE) mg/dL Urine Ketones (NEGATIVE) mg/dL Urine Blood (NEGATIVE) Urine Nitrate (NEGATIVE) Urine Bilirubin (NEGATIVE) Urine Urobilinogen (<1 E.U./dL) E.U./dL Ur Leukocyte Esterase (NEGATIVE) Miguelangel/uL Ur Random Creatinine mg/dL U Random Total Protein mg/L Ur Random Sodium meq/L Digoxin (0.8-2.0) ng/mL Salicylates (2.0-20.0) mg/dL Urine Opiates Screen (NEGATIVE) Urine Methadone Screen (NEGATIVE) Acetaminophen (10.0-20.0) ug/ml Ur Barbiturates Screen (NEGATIVE) Ur Phencyclidine Scrn (NEGATIVE) Ur Amphetamines Screen (NEGATIVE) U Benzodiazepines Scrn (NEGATIVE) U Oth Cocaine Metabols (NEGATIVE) U Cannabinoids Screen (NEGATIVE) Alcohol, Quantitative (0-10) mg/dL 03/30/18 03/30/18 03/29/18 Range/Units 06:00 05:15 22:30 WBC 12.9 H D (4.5-11.0) 10^3/uL RBC 4.72 (3.5-6.1) 10^6/uL Hgb 13.3 L (14.0-18.0) g/dL Hct 41.3 L (42.0-52.0) % MCV 87.5 (80.0-105.0) fl MCH 28.2 (25.0-35.0) pg MCHC 32.2 (31.0-37.0) g/dl RDW 18.1 H (11.5-14.5) % Plt Count 179 (120.0-450.0) 10^3/uL MPV 10.7 (7.0-11.0) fl Neut % (Auto) 83.8 H (50.0-68.0) % Lymph % (Auto) 5.3 L (22.0-35.0) % Lipscomb % (Auto) 10.8 H (1.0-6.0) % Eos % (Auto) 0.0 L (1.5-5.0) % Baso % (Auto) 0.1 (0.0-3.0) % Lymph # (Auto) 0.7 L (1.2-3.4) Lipscomb # (Auto) 1.4 H (0.1-0.6) Eos # (Auto) 0.0 (0.0-0.7) Baso # (Auto) 0.01 (0.0-2.0) K/mm3 Absolute Neuts (auto) 10.81 H (1.4-6.5) PT (9.4-12.5) SECONDS INR APTT (26.9-38.3) Seconds pCO2 25 L (35-45) mm/Hg pO2 63.0 L (30-55) mm/Hg HCO3 12.9 L (21-28) mmol/L ABG pH 7.32 L (7.35-7.45) ABG Total CO2 13.7 L (22-28) mmol.L ABG O2 Saturation 91.1 L (95-98) % ABG O2 Content 17.0 (15-23) ML/dl ABG Base Excess -11.4 L (-2.0-3.0) mmol/L ABG Hemoglobin 13.4 (11.7-17.4) g/dL ABG Carboxyhemoglobin 0.8 (0.5-1.5) % POC ABG HHb (Measured) 8.8 H (0-5) % ABG Methemoglobin 0.1 (0.0-3.0) % ABG O2 Capacity 18.7 (16-24) mL/dl ABG Potassium (3.6-5.2) mmol/L VBG pH (7.32-7.43) VBG pCO2 (40-60) VBG HCO3 (21-28) mmol/l VBG Total CO2 (22-28) mmol.L VBG O2 Sat (Calc) (40-65) % VBG Base Excess (0.0-2.0) mmol/L VBG Potassium (3.6-5.2) mmol/L Hgb O2 Saturation 90.3 L (95.0-98.0) % Sodium (132-148) mmol/L Chloride (98-107) mmol/L Glucose (75-110) mg/dl Lactate (0.7-2.1) mmol/L FiO2 40.0 % Crit Value Called To Crit Value Called By Blood Gas Notified Time Potassium (3.6-5.0) mmol/L Carbon Dioxide (21-33) mmol/L Anion Gap (10-20) BUN (7-21) mg/dL Creatinine (0.8-1.5) mg/dl Est GFR ( Amer) Est GFR (Non-Af Amer) POC Glucose (mg/dL) (65-110) mg/dL Random Glucose (70-110) mg/dL Hemoglobin A1c (4.2-6.5) % Serum Osmolality (272-300) mosm/kg Lactic Acid (0.7-2.1) mmol/L Calcium (8.4-10.5) mg/dL Phosphorus (2.5-4.5) mg/dL Magnesium (1.7-2.2) mg/dL Total Bilirubin (0.2-1.3) mg/dL AST (17-59) U/L ALT (7-56) U/L Alkaline Phosphatase (38-126) U/L Ammonia (9-33) umol/L Lactate Dehydrogenase (333-699) U/L Total Creatine Kinase (35-230) U/L Troponin I ng/mL Total Protein (5.8-8.3) g/dL Albumin (3.0-4.8) g/dL Globulin gm/dL Albumin/Globulin Ratio (1.1-1.8) Triglycerides (35-160) mg/dL Cholesterol (130-200) mg/dL LDL Cholesterol Direct (0-129) mg/dL HDL Cholesterol (29-60) mg/dL Arterial Blood Potassium (3.6-5.2) mmol/L Venous Blood Potassium (3.6-5.2) mmol/L Urine Color (YELLOW) Urine Appearance (CLEAR) Urine pH (4.7-8.0) Ur Specific [place] (1.005-1.035) Urine Protein (<30 mg/dL) mg/dL Urine Glucose (UA) (NEGATIVE) mg/dL Urine Ketones (NEGATIVE) mg/dL Urine Blood (NEGATIVE) Urine Nitrate (NEGATIVE) Urine Bilirubin (NEGATIVE) Urine Urobilinogen (<1 E.U./dL) E.U./dL Ur Leukocyte Esterase (NEGATIVE) Miguelangel/uL Ur Random Creatinine mg/dL U Random Total Protein mg/L Ur Random Sodium meq/L Digoxin (0.8-2.0) ng/mL Salicylates < 1 L (2.0-20.0) mg/dL Urine Opiates Screen (NEGATIVE) Urine Methadone Screen (NEGATIVE) Acetaminophen < 10.0 L (10.0-20.0) ug/ml Ur Barbiturates Screen (NEGATIVE) Ur Phencyclidine Scrn (NEGATIVE) Ur Amphetamines Screen (NEGATIVE) U Benzodiazepines Scrn (NEGATIVE) U Oth Cocaine Metabols (NEGATIVE) U Cannabinoids Screen (NEGATIVE) Alcohol, Quantitative (0-10) mg/dL 03/29/18 03/29/18 03/29/18 Range/Units 22:30 22:30 21:53 WBC (4.5-11.0) 10^3/uL RBC (3.5-6.1) 10^6/uL Hgb (14.0-18.0) g/dL Hct (42.0-52.0) % MCV (80.0-105.0) fl MCH (25.0-35.0) pg MCHC (31.0-37.0) g/dl RDW (11.5-14.5) % Plt Count (120.0-450.0) 10^3/uL MPV (7.0-11.0) fl Neut % (Auto) (50.0-68.0) % Lymph % (Auto) (22.0-35.0) % Lipscomb % (Auto) (1.0-6.0) % Eos % (Auto) (1.5-5.0) % Baso % (Auto) (0.0-3.0) % Lymph # (Auto) (1.2-3.4) [place]comb # (Auto) (0.1-0.6) Eos # (Auto) (0.0-0.7) Baso # (Auto) (0.0-2.0) K/mm3 Absolute Neuts (auto) (1.4-6.5) PT (9.4-12.5) SECONDS INR APTT (26.9-38.3) Seconds pCO2 (35-45) mm/Hg pO2 (30-55) mm/Hg HCO3 (21-28) mmol/L ABG pH (7.35-7.45) ABG Total CO2 (22-28) mmol.L ABG O2 Saturation (95-98) % ABG O2 Content (15-23) ML/dl ABG Base Excess (-2.0-3.0) mmol/L ABG Hemoglobin (11.7-17.4) g/dL ABG Carboxyhemoglobin (0.5-1.5) % POC ABG HHb (Measured) (0-5) % ABG Methemoglobin (0.0-3.0) % ABG O2 Capacity (16-24) mL/dl ABG Potassium (3.6-5.2) mmol/L VBG pH (7.32-7.43) VBG pCO2 (40-60) VBG HCO3 (21-28) mmol/l VBG Total CO2 (22-28) mmol.L VBG O2 Sat (Calc) (40-65) % VBG Base Excess (0.0-2.0) mmol/L VBG Potassium (3.6-5.2) mmol/L Hgb O2 Saturation (95.0-98.0) % Sodium (132-148) mmol/L Chloride (98-107) mmol/L Glucose (75-110) mg/dl Lactate (0.7-2.1) mmol/L FiO2 % Crit Value Called To Crit Value Called By Blood Gas Notified Time Potassium (3.6-5.0) mmol/L Carbon Dioxide (21-33) mmol/L Anion Gap (10-20) BUN (7-21) mg/dL Creatinine (0.8-1.5) mg/dl Est GFR ( Amer) Est GFR (Non-Af Amer) POC Glucose (mg/dL) 82 (65-110) mg/dL Random Glucose (70-110) mg/dL Hemoglobin A1c (4.2-6.5) % Serum Osmolality 308 H (272-300) mosm/kg Lactic Acid (0.7-2.1) mmol/L Calcium (8.4-10.5) mg/dL Phosphorus (2.5-4.5) mg/dL Magnesium (1.7-2.2) mg/dL Total Bilirubin (0.2-1.3) mg/dL AST (17-59) U/L ALT (7-56) U/L Alkaline Phosphatase (38-126) U/L Ammonia (9-33) umol/L Lactate Dehydrogenase (333-699) U/L Total Creatine Kinase (35-230) U/L Troponin I ng/mL Total Protein (5.8-8.3) g/dL Albumin (3.0-4.8) g/dL Globulin gm/dL Albumin/Globulin Ratio (1.1-1.8) Triglycerides (35-160) mg/dL Cholesterol (130-200) mg/dL LDL Cholesterol Direct (0-129) mg/dL HDL Cholesterol (29-60) mg/dL Arterial Blood Potassium (3.6-5.2) mmol/L Venous Blood Potassium (3.6-5.2) mmol/L Urine Color (YELLOW) Urine Appearance (CLEAR) Urine pH (4.7-8.0) Ur Specific [place] (1.005-1.035) Urine Protein (<30 mg/dL) mg/dL Urine Glucose (UA) (NEGATIVE) mg/dL Urine Ketones (NEGATIVE) mg/dL Urine Blood (NEGATIVE) Urine Nitrate (NEGATIVE) Urine Bilirubin (NEGATIVE) Urine Urobilinogen (<1 E.U./dL) E.U./dL Ur Leukocyte Esterase (NEGATIVE) Miguelangel/uL Ur Random Creatinine mg/dL U Random Total Protein mg/L Ur Random Sodium meq/L Digoxin (0.8-2.0) ng/mL Salicylates (2.0-20.0) mg/dL Urine Opiates Screen (NEGATIVE) Urine Methadone Screen (NEGATIVE) Acetaminophen (10.0-20.0) ug/ml Ur Barbiturates Screen (NEGATIVE) Ur Phencyclidine Scrn (NEGATIVE) Ur Amphetamines Screen (NEGATIVE) U Benzodiazepines Scrn (NEGATIVE) U Oth Cocaine Metabols (NEGATIVE) U Cannabinoids Screen (NEGATIVE) Alcohol, Quantitative < 10 (0-10) mg/dL 03/29/18 03/29/18 03/29/18 Range/Units 18:50 18:30 18:30 WBC (4.5-11.0) 10^3/uL RBC (3.5-6.1) 10^6/uL Hgb (14.0-18.0) g/dL Hct (42.0-52.0) % MCV (80.0-105.0) fl MCH (25.0-35.0) pg MCHC (31.0-37.0) g/dl RDW (11.5-14.5) % Plt Count (120.0-450.0) 10^3/uL MPV (7.0-11.0) fl Neut % (Auto) (50.0-68.0) % Lymph % (Auto) (22.0-35.0) % [place]comb % (Auto) (1.0-6.0) % Eos % (Auto) (1.5-5.0) % Baso % (Auto) (0.0-3.0) % Lymph # (Auto) (1.2-3.4) [place]comb # (Auto) (0.1-0.6) Eos # (Auto) (0.0-0.7) Baso # (Auto) (0.0-2.0) K/mm3 Absolute Neuts (auto) (1.4-6.5) PT (9.4-12.5) SECONDS INR APTT (26.9-38.3) Seconds pCO2 (35-45) mm/Hg pO2 173 H (30-55) mm/Hg HCO3 (21-28) mmol/L ABG pH (7.35-7.45) ABG Total CO2 (22-28) mmol.L ABG O2 Saturation (95-98) % ABG O2 Content (15-23) ML/dl ABG Base Excess (-2.0-3.0) mmol/L ABG Hemoglobin (11.7-17.4) g/dL ABG Carboxyhemoglobin (0.5-1.5) % POC ABG HHb (Measured) (0-5) % ABG Methemoglobin (0.0-3.0) % ABG O2 Capacity (16-24) mL/dl ABG Potassium (3.6-5.2) mmol/L VBG pH 7.25 L (7.32-7.43) VBG pCO2 30.0 L (40-60) VBG HCO3 13.2 L (21-28) mmol/l VBG Total CO2 14.1 L (22-28) mmol.L VBG O2 Sat (Calc) 97.2 H (40-65) % VBG Base Excess -12.7 L (0.0-2.0) mmol/L VBG Potassium 6.6 H* (3.6-5.2) mmol/L Hgb O2 Saturation (95.0-98.0) % Sodium 131.0 L (132-148) mmol/L Chloride 96.0 L (98-107) mmol/L Glucose 189 H (75-110) mg/dl Lactate 11.4 H* (0.7-2.1) mmol/L FiO2 21.0 % Crit Value Called To Aimee giraldo Crit Value Called By Atc Blood Gas Notified Time 1900 Potassium (3.6-5.0) mmol/L Carbon Dioxide (21-33) mmol/L Anion Gap (10-20) BUN (7-21) mg/dL Creatinine (0.8-1.5) mg/dl Est GFR ( Amer) Est GFR (Non-Af Amer) POC Glucose (mg/dL) (65-110) mg/dL Random Glucose (70-110) mg/dL Hemoglobin A1c (4.2-6.5) % Serum Osmolality (272-300) mosm/kg Lactic Acid 10.0 H* (0.7-2.1) mmol/L Calcium (8.4-10.5) mg/dL Phosphorus (2.5-4.5) mg/dL Magnesium (1.7-2.2) mg/dL Total Bilirubin (0.2-1.3) mg/dL AST (17-59) U/L ALT (7-56) U/L Alkaline Phosphatase (38-126) U/L Ammonia (9-33) umol/L Lactate Dehydrogenase (333-699) U/L Total Creatine Kinase (35-230) U/L Troponin I ng/mL Total Protein (5.8-8.3) g/dL Albumin (3.0-4.8) g/dL Globulin gm/dL Albumin/Globulin Ratio (1.1-1.8) Triglycerides (35-160) mg/dL Cholesterol (130-200) mg/dL LDL Cholesterol Direct (0-129) mg/dL HDL Cholesterol (29-60) mg/dL Arterial Blood Potassium (3.6-5.2) mmol/L Venous Blood Potassium 6.6 H* (3.6-5.2) mmol/L Urine Color (YELLOW) Urine Appearance (CLEAR) Urine pH (4.7-8.0) Ur Specific [place] (1.005-1.035) Urine Protein (<30 mg/dL) mg/dL Urine Glucose (UA) (NEGATIVE) mg/dL Urine Ketones (NEGATIVE) mg/dL Urine Blood (NEGATIVE) Urine Nitrate (NEGATIVE) Urine Bilirubin (NEGATIVE) Urine Urobilinogen (<1 E.U./dL) E.U./dL Ur Leukocyte Esterase (NEGATIVE) Miguelangel/uL Ur Random Creatinine 150 mg/dL U Random Total Protein mg/L Ur Random Sodium < 5 meq/L Digoxin (0.8-2.0) ng/mL Salicylates (2.0-20.0) mg/dL Urine Opiates Screen (NEGATIVE) Urine Methadone Screen (NEGATIVE) Acetaminophen (10.0-20.0) ug/ml Ur Barbiturates Screen (NEGATIVE) Ur Phencyclidine Scrn (NEGATIVE) Ur Amphetamines Screen (NEGATIVE) U Benzodiazepines Scrn (NEGATIVE) U Oth Cocaine Metabols (NEGATIVE) U Cannabinoids Screen (NEGATIVE) Alcohol, Quantitative (0-10) mg/dL 03/29/18 03/29/18 03/29/18 Range/Units 18:30 17:30 17:30 WBC (4.5-11.0) 10^3/uL RBC (3.5-6.1) 10^6/uL Hgb (14.0-18.0) g/dL Hct (42.0-52.0) % MCV (80.0-105.0) fl MCH (25.0-35.0) pg MCHC (31.0-37.0) g/dl RDW (11.5-14.5) % Plt Count (120.0-450.0) 10^3/uL MPV (7.0-11.0) fl Neut % (Auto) (50.0-68.0) % Lymph % (Auto) (22.0-35.0) % [place]comb % (Auto) (1.0-6.0) % Eos % (Auto) (1.5-5.0) % Baso % (Auto) (0.0-3.0) % Lymph # (Auto) (1.2-3.4) [place] # (Auto) (0.1-0.6) Eos # (Auto) (0.0-0.7) Baso # (Auto) (0.0-2.0) K/mm3 Absolute Neuts (auto) (1.4-6.5) PT (9.4-12.5) SECONDS INR APTT (26.9-38.3) Seconds pCO2 (35-45) mm/Hg pO2 (30-55) mm/Hg HCO3 (21-28) mmol/L ABG pH (7.35-7.45) ABG Total CO2 (22-28) mmol.L ABG O2 Saturation (95-98) % ABG O2 Content (15-23) ML/dl ABG Base Excess (-2.0-3.0) mmol/L ABG Hemoglobin (11.7-17.4) g/dL ABG Carboxyhemoglobin (0.5-1.5) % POC ABG HHb (Measured) (0-5) % ABG Methemoglobin (0.0-3.0) % ABG O2 Capacity (16-24) mL/dl ABG Potassium (3.6-5.2) mmol/L VBG pH (7.32-7.43) VBG pCO2 (40-60) VBG HCO3 (21-28) mmol/l VBG Total CO2 (22-28) mmol.L VBG O2 Sat (Calc) (40-65) % VBG Base Excess (0.0-2.0) mmol/L VBG Potassium (3.6-5.2) mmol/L Hgb O2 Saturation (95.0-98.0) % Sodium 136 (132-148) mmol/L Chloride 102 (98-107) mmol/L Glucose (75-110) mg/dl Lactate (0.7-2.1) mmol/L FiO2 % Crit Value Called To Crit Value Called By Blood Gas Notified Time Potassium 5.5 H (3.6-5.0) mmol/L Carbon Dioxide 13 L (21-33) mmol/L Anion Gap 26 H (10-20) BUN 63 H (7-21) mg/dL Creatinine 3.7 H (0.8-1.5) mg/dl Est GFR ( Amer) 20 Est GFR (Non-Af Amer) 16 POC Glucose (mg/dL) (65-110) mg/dL Random Glucose 110 (70-110) mg/dL Hemoglobin A1c (4.2-6.5) % Serum Osmolality (272-300) mosm/kg Lactic Acid (0.7-2.1) mmol/L Calcium 8.3 L (8.4-10.5) mg/dL Phosphorus 7.1 H (2.5-4.5) mg/dL Magnesium 2.4 H (1.7-2.2) mg/dL Total Bilirubin 1.2 (0.2-1.3) mg/dL AST 126 H D (17-59) U/L ALT 27 (7-56) U/L Alkaline Phosphatase 73 (38-126) U/L Ammonia (9-33) umol/L Lactate Dehydrogenase (333-699) U/L Total Creatine Kinase (35-230) U/L Troponin I ng/mL Total Protein 6.9 (5.8-8.3) g/dL Albumin 3.9 (3.0-4.8) g/dL Globulin 3.1 gm/dL Albumin/Globulin Ratio 1.3 (1.1-1.8) Triglycerides (35-160) mg/dL Cholesterol (130-200) mg/dL LDL Cholesterol Direct (0-129) mg/dL HDL Cholesterol (29-60) mg/dL Arterial Blood Potassium (3.6-5.2) mmol/L Venous Blood Potassium (3.6-5.2) mmol/L Urine Color (YELLOW) Urine Appearance (CLEAR) Urine pH (4.7-8.0) Ur Specific [place] (1.005-1.035) Urine Protein (<30 mg/dL) mg/dL Urine Glucose (UA) (NEGATIVE) mg/dL Urine Ketones (NEGATIVE) mg/dL Urine Blood (NEGATIVE) Urine Nitrate (NEGATIVE) Urine Bilirubin (NEGATIVE) Urine Urobilinogen (<1 E.U./dL) E.U./dL Ur Leukocyte Esterase (NEGATIVE) Miguelangel/uL Ur Random Creatinine mg/dL U Random Total Protein 14 mg/L Ur Random Sodium meq/L Digoxin (0.8-2.0) ng/mL Salicylates (2.0-20.0) mg/dL Urine Opiates Screen Negative (NEGATIVE) Urine Methadone Screen Negative (NEGATIVE) Acetaminophen (10.0-20.0) ug/ml Ur Barbiturates Screen Negative (NEGATIVE) Ur Phencyclidine Scrn Negative (NEGATIVE) Ur Amphetamines Screen Negative (NEGATIVE) U Benzodiazepines Scrn Negative (NEGATIVE) U Oth Cocaine Metabols Negative (NEGATIVE) U Cannabinoids Screen Negative (NEGATIVE) Alcohol, Quantitative (0-10) mg/dL 03/29/18 03/29/18 03/29/18 Range/Units 17:20 16:27 15:40 WBC (4.5-11.0) 10^3/uL RBC (3.5-6.1) 10^6/uL Hgb (14.0-18.0) g/dL Hct (42.0-52.0) % MCV (80.0-105.0) fl MCH (25.0-35.0) pg MCHC (31.0-37.0) g/dl RDW (11.5-14.5) % Plt Count (120.0-450.0) 10^3/uL MPV (7.0-11.0) fl Neut % (Auto) (50.0-68.0) % Lymph % (Auto) (22.0-35.0) % [place] % (Auto) (1.0-6.0) % Eos % (Auto) (1.5-5.0) % Baso % (Auto) (0.0-3.0) % Lymph # (Auto) (1.2-3.4) [place] # (Auto) (0.1-0.6) Eos # (Auto) (0.0-0.7) Baso # (Auto) (0.0-2.0) K/mm3 Absolute Neuts (auto) (1.4-6.5) PT (9.4-12.5) SECONDS INR APTT (26.9-38.3) Seconds pCO2 (35-45) mm/Hg pO2 (30-55) mm/Hg HCO3 (21-28) mmol/L ABG pH (7.35-7.45) ABG Total CO2 (22-28) mmol.L ABG O2 Saturation (95-98) % ABG O2 Content (15-23) ML/dl ABG Base Excess (-2.0-3.0) mmol/L ABG Hemoglobin (11.7-17.4) g/dL ABG Carboxyhemoglobin (0.5-1.5) % POC ABG HHb (Measured) (0-5) % ABG Methemoglobin (0.0-3.0) % ABG O2 Capacity (16-24) mL/dl ABG Potassium (3.6-5.2) mmol/L VBG pH (7.32-7.43) VBG pCO2 (40-60) VBG HCO3 (21-28) mmol/l VBG Total CO2 (22-28) mmol.L VBG O2 Sat (Calc) (40-65) % VBG Base Excess (0.0-2.0) mmol/L VBG Potassium (3.6-5.2) mmol/L Hgb O2 Saturation (95.0-98.0) % Sodium (132-148) mmol/L Chloride (98-107) mmol/L Glucose (75-110) mg/dl Lactate (0.7-2.1) mmol/L FiO2 % Crit Value Called To Crit Value Called By Blood Gas Notified Time Potassium (3.6-5.0) mmol/L Carbon Dioxide (21-33) mmol/L Anion Gap (10-20) BUN (7-21) mg/dL Creatinine (0.8-1.5) mg/dl Est GFR ( Amer) Est GFR (Non-Af Amer) POC Glucose (mg/dL) (65-110) mg/dL Random Glucose (70-110) mg/dL Hemoglobin A1c (4.2-6.5) % Serum Osmolality (272-300) mosm/kg Lactic Acid (0.7-2.1) mmol/L Calcium (8.4-10.5) mg/dL Phosphorus (2.5-4.5) mg/dL Magnesium (1.7-2.2) mg/dL Total Bilirubin (0.2-1.3) mg/dL AST (17-59) U/L ALT (7-56) U/L Alkaline Phosphatase (38-126) U/L Ammonia (9-33) umol/L Lactate Dehydrogenase 524 (333-699) U/L Total Creatine Kinase 181 (35-230) U/L Troponin I ng/mL Total Protein (5.8-8.3) g/dL Albumin (3.0-4.8) g/dL Globulin gm/dL Albumin/Globulin Ratio (1.1-1.8) Triglycerides (35-160) mg/dL Cholesterol (130-200) mg/dL LDL Cholesterol Direct (0-129) mg/dL HDL Cholesterol (29-60) mg/dL Arterial Blood Potassium (3.6-5.2) mmol/L Venous Blood Potassium (3.6-5.2) mmol/L Urine Color Yellow (YELLOW) Urine Appearance Clear (CLEAR) Urine pH 5.5 (4.7-8.0) Ur Specific [place] >= 1.030 (1.005-1.035) Urine Protein Negative (<30 mg/dL) mg/dL Urine Glucose (UA) Negative (NEGATIVE) mg/dL Urine Ketones Negative (NEGATIVE) mg/dL Urine Blood Negative (NEGATIVE) Urine Nitrate Negative (NEGATIVE) Urine Bilirubin Negative (NEGATIVE) Urine Urobilinogen 0.2 (<1 E.U./dL) E.U./dL Ur Leukocyte Esterase Negative (NEGATIVE) Miguelangel/uL Ur Random Creatinine mg/dL U Random Total Protein mg/L Ur Random Sodium meq/L Digoxin < 0.4 L (0.8-2.0) ng/mL Salicylates (2.0-20.0) mg/dL Urine Opiates Screen (NEGATIVE) Urine Methadone Screen (NEGATIVE) Acetaminophen (10.0-20.0) ug/ml Ur Barbiturates Screen (NEGATIVE) Ur Phencyclidine Scrn (NEGATIVE) Ur Amphetamines Screen (NEGATIVE) U Benzodiazepines Scrn (NEGATIVE) U Oth Cocaine Metabols (NEGATIVE) U Cannabinoids Screen (NEGATIVE) Alcohol, Quantitative (0-10) mg/dL 03/29/18 03/29/18 03/29/18 Range/Units 15:30 15:30 15:30 WBC (4.5-11.0) 10^3/uL RBC (3.5-6.1) 10^6/uL Hgb (14.0-18.0) g/dL Hct (42.0-52.0) % MCV (80.0-105.0) fl MCH (25.0-35.0) pg MCHC (31.0-37.0) g/dl RDW (11.5-14.5) % Plt Count (120.0-450.0) 10^3/uL MPV (7.0-11.0) fl Neut % (Auto) (50.0-68.0) % Lymph % (Auto) (22.0-35.0) % [place]comb % (Auto) (1.0-6.0) % Eos % (Auto) (1.5-5.0) % Baso % (Auto) (0.0-3.0) % Lymph # (Auto) (1.2-3.4) [place] # (Auto) (0.1-0.6) Eos # (Auto) (0.0-0.7) Baso # (Auto) (0.0-2.0) K/mm3 Absolute Neuts (auto) (1.4-6.5) PT 158.9 H (9.4-12.5) SECONDS INR 14.32 H* APTT 76.4 H (26.9-38.3) Seconds pCO2 (35-45) mm/Hg pO2 (30-55) mm/Hg HCO3 (21-28) mmol/L ABG pH (7.35-7.45) ABG Total CO2 (22-28) mmol.L ABG O2 Saturation (95-98) % ABG O2 Content (15-23) ML/dl ABG Base Excess (-2.0-3.0) mmol/L ABG Hemoglobin (11.7-17.4) g/dL ABG Carboxyhemoglobin (0.5-1.5) % POC ABG HHb (Measured) (0-5) % ABG Methemoglobin (0.0-3.0) % ABG O2 Capacity (16-24) mL/dl ABG Potassium (3.6-5.2) mmol/L VBG pH (7.32-7.43) VBG pCO2 (40-60) VBG HCO3 (21-28) mmol/l VBG Total CO2 (22-28) mmol.L VBG O2 Sat (Calc) (40-65) % VBG Base Excess (0.0-2.0) mmol/L VBG Potassium (3.6-5.2) mmol/L Hgb O2 Saturation (95.0-98.0) % Sodium 134 (132-148) mmol/L Chloride 98 (98-107) mmol/L Glucose (75-110) mg/dl Lactate (0.7-2.1) mmol/L FiO2 % Crit Value Called To Crit Value Called By Blood Gas Notified Time Potassium 6.0 H* (3.6-5.0) mmol/L Carbon Dioxide 13 L (21-33) mmol/L Anion Gap 29 H (10-20) BUN 64 H (7-21) mg/dL Creatinine 3.6 H (0.8-1.5) mg/dl Est GFR ( Amer) 20 Est GFR (Non-Af Amer) 17 POC Glucose (mg/dL) (65-110) mg/dL Random Glucose 197 H (70-110) mg/dL Hemoglobin A1c (4.2-6.5) % Serum Osmolality (272-300) mosm/kg Lactic Acid 8.9 H* (0.7-2.1) mmol/L Calcium 8.4 (8.4-10.5) mg/dL Phosphorus 7.8 H (2.5-4.5) mg/dL Magnesium 2.5 H (1.7-2.2) mg/dL Total Bilirubin 1.2 (0.2-1.3) mg/dL AST 49 (17-59) U/L ALT 15 (7-56) U/L Alkaline Phosphatase 77 (38-126) U/L Ammonia (9-33) umol/L Lactate Dehydrogenase (333-699) U/L Total Creatine Kinase (35-230) U/L Troponin I ng/mL Total Protein 7.2 (5.8-8.3) g/dL Albumin 4.0 (3.0-4.8) g/dL Globulin 3.2 gm/dL Albumin/Globulin Ratio 1.2 (1.1-1.8) Triglycerides (35-160) mg/dL Cholesterol (130-200) mg/dL LDL Cholesterol Direct (0-129) mg/dL HDL Cholesterol (29-60) mg/dL Arterial Blood Potassium (3.6-5.2) mmol/L Venous Blood Potassium (3.6-5.2) mmol/L Urine Color (YELLOW) Urine Appearance (CLEAR) Urine pH (4.7-8.0) Ur Specific [place] (1.005-1.035) Urine Protein (<30 mg/dL) mg/dL Urine Glucose (UA) (NEGATIVE) mg/dL Urine Ketones (NEGATIVE) mg/dL Urine Blood (NEGATIVE) Urine Nitrate (NEGATIVE) Urine Bilirubin (NEGATIVE) Urine Urobilinogen (<1 E.U./dL) E.U./dL Ur Leukocyte Esterase (NEGATIVE) Miguelangel/uL Ur Random Creatinine mg/dL U Random Total Protein mg/L Ur Random Sodium meq/L Digoxin (0.8-2.0) ng/mL Salicylates (2.0-20.0) mg/dL Urine Opiates Screen (NEGATIVE) Urine Methadone Screen (NEGATIVE) Acetaminophen (10.0-20.0) ug/ml Ur Barbiturates Screen (NEGATIVE) Ur Phencyclidine Scrn (NEGATIVE) Ur Amphetamines Screen (NEGATIVE) U Benzodiazepines Scrn (NEGATIVE) U Oth Cocaine Metabols (NEGATIVE) U Cannabinoids Screen (NEGATIVE) Alcohol, Quantitative (0-10) mg/dL 03/29/18 03/29/18 03/29/18 Range/Units 15:15 14:52 14:45 WBC 6.8 (4.5-11.0) 10^3/uL RBC 4.72 (3.5-6.1) 10^6/uL Hgb 13.4 L (14.0-18.0) g/dL Hct 40.9 L (42.0-52.0) % MCV 86.7 (80.0-105.0) fl MCH 28.4 (25.0-35.0) pg MCHC 32.8 (31.0-37.0) g/dl RDW 17.6 H (11.5-14.5) % Plt Count 242 (120.0-450.0) 10^3/uL MPV 9.8 (7.0-11.0) fl Neut % (Auto) 76.0 H (50.0-68.0) % Lymph % (Auto) 16.7 L (22.0-35.0) % Lipscomb % (Auto) 6.5 H (1.0-6.0) % Eos % (Auto) 0.1 L (1.5-5.0) % Baso % (Auto) 0.7 (0.0-3.0) % Lymph # (Auto) 1.1 L (1.2-3.4) Lipscomb # (Auto) 0.4 (0.1-0.6) Eos # (Auto) 0.0 (0.0-0.7) Baso # (Auto) 0.05 (0.0-2.0) K/mm3 Absolute Neuts (auto) 5.12 (1.4-6.5) PT (9.4-12.5) SECONDS INR APTT (26.9-38.3) Seconds pCO2 23 L (35-45) mm/Hg pO2 83.0 (30-55) mm/Hg HCO3 8.2 L* (21-28) mmol/L ABG pH 7.16 L* (7.35-7.45) ABG Total CO2 8.9 L (22-28) mmol.L ABG O2 Saturation 93.6 L (95-98) % ABG O2 Content (15-23) ML/dl ABG Base Excess -18.7 L (-2.0-3.0) mmol/L ABG Hemoglobin (11.7-17.4) g/dL ABG Carboxyhemoglobin (0.5-1.5) % POC ABG HHb (Measured) (0-5) % ABG Methemoglobin (0.0-3.0) % ABG O2 Capacity (16-24) mL/dl ABG Potassium 5.3 H (3.6-5.2) mmol/L VBG pH (7.32-7.43) VBG pCO2 (40-60) VBG HCO3 (21-28) mmol/l VBG Total CO2 (22-28) mmol.L VBG O2 Sat (Calc) (40-65) % VBG Base Excess (0.0-2.0) mmol/L VBG Potassium (3.6-5.2) mmol/L Hgb O2 Saturation (95.0-98.0) % Sodium 131.0 L (132-148) mmol/L Chloride 101.0 (98-107) mmol/L Glucose 193 H (75-110) mg/dl Lactate 9.8 H* (0.7-2.1) mmol/L FiO2 40.0 % Crit Value Called To Betty hooker rn Crit Value Called By Blood Gas Notified Time 1452 Potassium (3.6-5.0) mmol/L Carbon Dioxide (21-33) mmol/L Anion Gap (10-20) BUN (7-21) mg/dL Creatinine (0.8-1.5) mg/dl Est GFR ( Amer) Est GFR (Non-Af Amer) POC Glucose (mg/dL) 250 H (65-110) mg/dL Random Glucose (70-110) mg/dL Hemoglobin A1c (4.2-6.5) % Serum Osmolality (272-300) mosm/kg Lactic Acid (0.7-2.1) mmol/L Calcium (8.4-10.5) mg/dL Phosphorus (2.5-4.5) mg/dL Magnesium (1.7-2.2) mg/dL Total Bilirubin (0.2-1.3) mg/dL AST (17-59) U/L ALT (7-56) U/L Alkaline Phosphatase (38-126) U/L Ammonia (9-33) umol/L Lactate Dehydrogenase (333-699) U/L Total Creatine Kinase (35-230) U/L Troponin I ng/mL Total Protein (5.8-8.3) g/dL Albumin (3.0-4.8) g/dL Globulin gm/dL Albumin/Globulin Ratio (1.1-1.8) Triglycerides (35-160) mg/dL Cholesterol (130-200) mg/dL LDL Cholesterol Direct (0-129) mg/dL HDL Cholesterol (29-60) mg/dL Arterial Blood Potassium 5.3 H (3.6-5.2) mmol/L Venous Blood Potassium (3.6-5.2) mmol/L Urine Color (YELLOW) Urine Appearance (CLEAR) Urine pH (4.7-8.0) Ur Specific [place] (1.005-1.035) Urine Protein (<30 mg/dL) mg/dL Urine Glucose (UA) (NEGATIVE) mg/dL Urine Ketones (NEGATIVE) mg/dL Urine Blood (NEGATIVE) Urine Nitrate (NEGATIVE) Urine Bilirubin (NEGATIVE) Urine Urobilinogen (<1 E.U./dL) E.U./dL Ur Leukocyte Esterase (NEGATIVE) Miguelangel/uL Ur Random Creatinine mg/dL U Random Total Protein mg/L Ur Random Sodium meq/L Digoxin (0.8-2.0) ng/mL Salicylates (2.0-20.0) mg/dL Urine Opiates Screen (NEGATIVE) Urine Methadone Screen (NEGATIVE) Acetaminophen (10.0-20.0) ug/ml Ur Barbiturates Screen (NEGATIVE) Ur Phencyclidine Scrn (NEGATIVE) Ur Amphetamines Screen (NEGATIVE) U Benzodiazepines Scrn (NEGATIVE) U Oth Cocaine Metabols (NEGATIVE) U Cannabinoids Screen (NEGATIVE) Alcohol, Quantitative (0-10) mg/dL 03/29/18 03/29/18 03/29/18 Range/Units 13:25 12:20 09:45 WBC (4.5-11.0) 10^3/uL RBC (3.5-6.1) 10^6/uL Hgb (14.0-18.0) g/dL Hct (42.0-52.0) % MCV (80.0-105.0) fl MCH (25.0-35.0) pg MCHC (31.0-37.0) g/dl RDW (11.5-14.5) % Plt Count (120.0-450.0) 10^3/uL MPV (7.0-11.0) fl Neut % (Auto) (50.0-68.0) % Lymph % (Auto) (22.0-35.0) % Lipscomb % (Auto) (1.0-6.0) % Eos % (Auto) (1.5-5.0) % Baso % (Auto) (0.0-3.0) % Lymph # (Auto) (1.2-3.4) [place]comb # (Auto) (0.1-0.6) Eos # (Auto) (0.0-0.7) Baso # (Auto) (0.0-2.0) K/mm3 Absolute Neuts (auto) (1.4-6.5) PT (9.4-12.5) SECONDS INR APTT (26.9-38.3) Seconds pCO2 (35-45) mm/Hg pO2 67 H (30-55) mm/Hg HCO3 (21-28) mmol/L ABG pH (7.35-7.45) ABG Total CO2 (22-28) mmol.L ABG O2 Saturation (95-98) % ABG O2 Content (15-23) ML/dl ABG Base Excess (-2.0-3.0) mmol/L ABG Hemoglobin (11.7-17.4) g/dL ABG Carboxyhemoglobin (0.5-1.5) % POC ABG HHb (Measured) (0-5) % ABG Methemoglobin (0.0-3.0) % ABG O2 Capacity (16-24) mL/dl ABG Potassium (3.6-5.2) mmol/L VBG pH 7.30 L (7.32-7.43) VBG pCO2 31.0 L (40-60) VBG HCO3 15.3 L (21-28) mmol/l VBG Total CO2 16.3 L (22-28) mmol.L VBG O2 Sat (Calc) 92.4 H (40-65) % VBG Base Excess -9.9 L (0.0-2.0) mmol/L VBG Potassium 5.6 H (3.6-5.2) mmol/L Hgb O2 Saturation (95.0-98.0) % Sodium 129.0 L (132-148) mmol/L Chloride 96.0 L (98-107) mmol/L Glucose 269 H (75-110) mg/dl Lactate 4.7 H* (0.7-2.1) mmol/L FiO2 21.0 % Crit Value Called To Michelle cooper Crit Value Called By Ab Blood Gas Notified Time 1225 Potassium (3.6-5.0) mmol/L Carbon Dioxide (21-33) mmol/L Anion Gap (10-20) BUN (7-21) mg/dL Creatinine (0.8-1.5) mg/dl Est GFR ( Amer) Est GFR (Non-Af Amer) POC Glucose (mg/dL) (65-110) mg/dL Random Glucose (70-110) mg/dL Hemoglobin A1c 8.8 H (4.2-6.5) % Serum Osmolality (272-300) mosm/kg Lactic Acid (0.7-2.1) mmol/L Calcium (8.4-10.5) mg/dL Phosphorus (2.5-4.5) mg/dL Magnesium (1.7-2.2) mg/dL Total Bilirubin (0.2-1.3) mg/dL AST (17-59) U/L ALT (7-56) U/L Alkaline Phosphatase (38-126) U/L Ammonia (9-33) umol/L Lactate Dehydrogenase (333-699) U/L Total Creatine Kinase (35-230) U/L Troponin I 0.07 ng/mL Total Protein (5.8-8.3) g/dL Albumin (3.0-4.8) g/dL Globulin gm/dL Albumin/Globulin Ratio (1.1-1.8) Triglycerides (35-160) mg/dL Cholesterol (130-200) mg/dL LDL Cholesterol Direct (0-129) mg/dL HDL Cholesterol (29-60) mg/dL Arterial Blood Potassium (3.6-5.2) mmol/L Venous Blood Potassium 5.6 H (3.6-5.2) mmol/L Urine Color (YELLOW) Urine Appearance (CLEAR) Urine pH (4.7-8.0) Ur Specific [place] (1.005-1.035) Urine Protein (<30 mg/dL) mg/dL Urine Glucose (UA) (NEGATIVE) mg/dL Urine Ketones (NEGATIVE) mg/dL Urine Blood (NEGATIVE) Urine Nitrate (NEGATIVE) Urine Bilirubin (NEGATIVE) Urine Urobilinogen (<1 E.U./dL) E.U./dL Ur Leukocyte Esterase (NEGATIVE) Miguelangel/uL Ur Random Creatinine mg/dL U Random Total Protein mg/L Ur Random Sodium meq/L Digoxin (0.8-2.0) ng/mL Salicylates (2.0-20.0) mg/dL Urine Opiates Screen (NEGATIVE) Urine Methadone Screen (NEGATIVE) Acetaminophen (10.0-20.0) ug/ml Ur Barbiturates Screen (NEGATIVE) Ur Phencyclidine Scrn (NEGATIVE) Ur Amphetamines Screen (NEGATIVE) U Benzodiazepines Scrn (NEGATIVE) U Oth Cocaine Metabols (NEGATIVE) U Cannabinoids Screen (NEGATIVE) Alcohol, Quantitative (0-10) mg/dL Laboratory Results - last 24 hr 03/29/18 03/29/18 03/29/18 09:45 12:20 13:25 WBC RBC Hgb Hct MCV MCH MCHC RDW Plt Count MPV Neut % (Auto) Lymph % (Auto) [place] % (Auto) Eos % (Auto) Baso % (Auto) Lymph # (Auto) [place] # (Auto) Eos # (Auto) Baso # (Auto) Absolute Neuts (auto) PT INR APTT pCO2 pO2 67 H HCO3 ABG pH ABG Total CO2 ABG O2 Saturation ABG O2 Content ABG Base Excess ABG Hemoglobin ABG Carboxyhemoglobin POC ABG HHb (Measured) ABG Methemoglobin ABG O2 Capacity ABG Potassium VBG pH 7.30 L VBG pCO2 31.0 L VBG HCO3 15.3 L VBG Total CO2 16.3 L VBG O2 Sat (Calc) 92.4 H VBG Base Excess -9.9 L VBG Potassium 5.6 H Hgb O2 Saturation Sodium 129.0 L Chloride 96.0 L Glucose 269 H Lactate 4.7 H* FiO2 21.0 Crit Value Called To Michelle cooper Crit Value Called By Ab Blood Gas Notified Time 1225 Potassium Carbon Dioxide Anion Gap BUN Creatinine Est GFR ( Amer) Est GFR (Non-Af Amer) POC Glucose (mg/dL) Random Glucose Hemoglobin A1c 8.8 H Serum Osmolality Lactic Acid Calcium Phosphorus Magnesium Total Bilirubin AST ALT Alkaline Phosphatase Ammonia Lactate Dehydrogenase Total Creatine Kinase Troponin I 0.07 Total Protein Albumin Globulin Albumin/Globulin Ratio Triglycerides Cholesterol LDL Cholesterol Direct HDL Cholesterol Arterial Blood Potassium Venous Blood Potassium 5.6 H Urine Color Urine Appearance Urine pH Ur Specific [place] Urine Protein Urine Glucose (UA) Urine Ketones Urine Blood Urine Nitrate Urine Bilirubin Urine Urobilinogen Ur Leukocyte Esterase Ur Random Creatinine U Random Total Protein Ur Random Sodium Digoxin Salicylates Urine Opiates Screen Urine Methadone Screen Acetaminophen Ur Barbiturates Screen Ur Phencyclidine Scrn Ur Amphetamines Screen U Benzodiazepines Scrn U Oth Cocaine Metabols U Cannabinoids Screen Alcohol, Quantitative 03/29/18 03/29/18 03/29/18 14:45 14:52 15:15 WBC 6.8 RBC 4.72 Hgb 13.4 L Hct 40.9 L MCV 86.7 MCH 28.4 MCHC 32.8 RDW 17.6 H Plt Count 242 MPV 9.8 Neut % (Auto) 76.0 H Lymph % (Auto) 16.7 L [place] % (Auto) 6.5 H Eos % (Auto) 0.1 L Baso % (Auto) 0.7 Lymph # (Auto) 1.1 L [place] # (Auto) 0.4 Eos # (Auto) 0.0 Baso # (Auto) 0.05 Absolute Neuts (auto) 5.12 PT INR APTT pCO2 23 L pO2 83.0 HCO3 8.2 L* ABG pH 7.16 L* ABG Total CO2 8.9 L ABG O2 Saturation 93.6 L ABG O2 Content ABG Base Excess -18.7 L ABG Hemoglobin ABG Carboxyhemoglobin POC ABG HHb (Measured) ABG Methemoglobin ABG O2 Capacity ABG Potassium 5.3 H VBG pH VBG pCO2 VBG HCO3 VBG Total CO2 VBG O2 Sat (Calc) VBG Base Excess VBG Potassium Hgb O2 Saturation Sodium 131.0 L Chloride 101.0 Glucose 193 H Lactate 9.8 H* FiO2 40.0 Crit Value Called To Betty hooker rn Crit Value Called By Blood Gas Notified Time 1452 Potassium Carbon Dioxide Anion Gap BUN Creatinine Est GFR ( Amer) Est GFR (Non-Af Amer) POC Glucose (mg/dL) 250 H Random Glucose Hemoglobin A1c Serum Osmolality Lactic Acid Calcium Phosphorus Magnesium Total Bilirubin AST ALT Alkaline Phosphatase Ammonia Lactate Dehydrogenase Total Creatine Kinase Troponin I Total Protein Albumin Globulin Albumin/Globulin Ratio Triglycerides Cholesterol LDL Cholesterol Direct HDL Cholesterol Arterial Blood Potassium 5.3 H Venous Blood Potassium Urine Color Urine Appearance Urine pH Ur Specific [place] Urine Protein Urine Glucose (UA) Urine Ketones Urine Blood Urine Nitrate Urine Bilirubin Urine Urobilinogen Ur Leukocyte Esterase Ur Random Creatinine U Random Total Protein Ur Random Sodium Digoxin Salicylates Urine Opiates Screen Urine Methadone Screen Acetaminophen Ur Barbiturates Screen Ur Phencyclidine Scrn Ur Amphetamines Screen U Benzodiazepines Scrn U Oth Cocaine Metabols U Cannabinoids Screen Alcohol, Quantitative 03/29/18 03/29/18 03/29/18 15:30 15:30 15:30 WBC RBC Hgb Hct MCV MCH MCHC RDW Plt Count MPV Neut % (Auto) Lymph % (Auto) [place] % (Auto) Eos % (Auto) Baso % (Auto) Lymph # (Auto) [place] # (Auto) Eos # (Auto) Baso # (Auto) Absolute Neuts (auto) PT 158.9 H INR 14.32 H* APTT 76.4 H pCO2 pO2 HCO3 ABG pH ABG Total CO2 ABG O2 Saturation ABG O2 Content ABG Base Excess ABG Hemoglobin ABG Carboxyhemoglobin POC ABG HHb (Measured) ABG Methemoglobin ABG O2 Capacity ABG Potassium VBG pH VBG pCO2 VBG HCO3 VBG Total CO2 VBG O2 Sat (Calc) VBG Base Excess VBG Potassium Hgb O2 Saturation Sodium 134 Chloride 98 Glucose Lactate FiO2 Crit Value Called To Crit Value Called By Blood Gas Notified Time Potassium 6.0 H* Carbon Dioxide 13 L Anion Gap 29 H BUN 64 H Creatinine 3.6 H Est GFR ( Amer) 20 Est GFR (Non-Af Amer) 17 POC Glucose (mg/dL) Random Glucose 197 H Hemoglobin A1c Serum Osmolality Lactic Acid 8.9 H* Calcium 8.4 Phosphorus 7.8 H Magnesium 2.5 H Total Bilirubin 1.2 AST 49 ALT 15 Alkaline Phosphatase 77 Ammonia Lactate Dehydrogenase Total Creatine Kinase Troponin I Total Protein 7.2 Albumin 4.0 Globulin 3.2 Albumin/Globulin Ratio 1.2 Triglycerides Cholesterol LDL Cholesterol Direct HDL Cholesterol Arterial Blood Potassium Venous Blood Potassium Urine Color Urine Appearance Urine pH Ur Specific [place] Urine Protein Urine Glucose (UA) Urine Ketones Urine Blood Urine Nitrate Urine Bilirubin Urine Urobilinogen Ur Leukocyte Esterase Ur Random Creatinine U Random Total Protein Ur Random Sodium Digoxin Salicylates Urine Opiates Screen Urine Methadone Screen Acetaminophen Ur Barbiturates Screen Ur Phencyclidine Scrn Ur Amphetamines Screen U Benzodiazepines Scrn U Oth Cocaine Metabols U Cannabinoids Screen Alcohol, Quantitative 03/29/18 03/29/18 03/29/18 15:40 16:27 17:20 WBC RBC Hgb Hct MCV MCH MCHC RDW Plt Count MPV Neut % (Auto) Lymph % (Auto) [place] % (Auto) Eos % (Auto) Baso % (Auto) Lymph # (Auto) [place] # (Auto) Eos # (Auto) Baso # (Auto) Absolute Neuts (auto) PT INR APTT pCO2 pO2 HCO3 ABG pH ABG Total CO2 ABG O2 Saturation ABG O2 Content ABG Base Excess ABG Hemoglobin ABG Carboxyhemoglobin POC ABG HHb (Measured) ABG Methemoglobin ABG O2 Capacity ABG Potassium VBG pH VBG pCO2 VBG HCO3 VBG Total CO2 VBG O2 Sat (Calc) VBG Base Excess VBG Potassium Hgb O2 Saturation Sodium Chloride Glucose Lactate FiO2 Crit Value Called To Crit Value Called By Blood Gas Notified Time Potassium Carbon Dioxide Anion Gap BUN Creatinine Est GFR ( Amer) Est GFR (Non-Af Amer) POC Glucose (mg/dL) Random Glucose Hemoglobin A1c Serum Osmolality Lactic Acid Calcium Phosphorus Magnesium Total Bilirubin AST ALT Alkaline Phosphatase Ammonia Lactate Dehydrogenase 524 Total Creatine Kinase 181 Troponin I Total Protein Albumin Globulin Albumin/Globulin Ratio Triglycerides Cholesterol LDL Cholesterol Direct HDL Cholesterol Arterial Blood Potassium Venous Blood Potassium Urine Color Yellow Urine Appearance Clear Urine pH 5.5 Ur Specific [place] >= 1.030 Urine Protein Negative Urine Glucose (UA) Negative Urine Ketones Negative Urine Blood Negative Urine Nitrate Negative Urine Bilirubin Negative Urine Urobilinogen 0.2 Ur Leukocyte Esterase Negative Ur Random Creatinine U Random Total Protein Ur Random Sodium Digoxin < 0.4 L Salicylates Urine Opiates Screen Urine Methadone Screen Acetaminophen Ur Barbiturates Screen Ur Phencyclidine Scrn Ur Amphetamines Screen U Benzodiazepines Scrn U Oth Cocaine Metabols U Cannabinoids Screen Alcohol, Quantitative 03/29/18 03/29/18 03/29/18 17:30 17:30 18:30 WBC RBC Hgb Hct MCV MCH MCHC RDW Plt Count MPV Neut % (Auto) Lymph % (Auto) [place] % (Auto) Eos % (Auto) Baso % (Auto) Lymph # (Auto) [place] # (Auto) Eos # (Auto) Baso # (Auto) Absolute Neuts (auto) PT INR APTT pCO2 pO2 HCO3 ABG pH ABG Total CO2 ABG O2 Saturation ABG O2 Content ABG Base Excess ABG Hemoglobin ABG Carboxyhemoglobin POC ABG HHb (Measured) ABG Methemoglobin ABG O2 Capacity ABG Potassium VBG pH VBG pCO2 VBG HCO3 VBG Total CO2 VBG O2 Sat (Calc) VBG Base Excess VBG Potassium Hgb O2 Saturation Sodium 136 Chloride 102 Glucose Lactate FiO2 Crit Value Called To Crit Value Called By Blood Gas Notified Time Potassium 5.5 H Carbon Dioxide 13 L Anion Gap 26 H BUN 63 H Creatinine 3.7 H Est GFR ( Amer) 20 Est GFR (Non-Af Amer) 16 POC Glucose (mg/dL) Random Glucose 110 Hemoglobin A1c Serum Osmolality Lactic Acid Calcium 8.3 L Phosphorus 7.1 H Magnesium 2.4 H Total Bilirubin 1.2 AST 126 H D ALT 27 Alkaline Phosphatase 73 Ammonia Lactate Dehydrogenase Total Creatine Kinase Troponin I Total Protein 6.9 Albumin 3.9 Globulin 3.1 Albumin/Globulin Ratio 1.3 Triglycerides Cholesterol LDL Cholesterol Direct HDL Cholesterol Arterial Blood Potassium Venous Blood Potassium Urine Color Urine Appearance Urine pH Ur Specific [place] Urine Protein Urine Glucose (UA) Urine Ketones Urine Blood Urine Nitrate Urine Bilirubin Urine Urobilinogen Ur Leukocyte Esterase Ur Random Creatinine U Random Total Protein 14 Ur Random Sodium Digoxin Salicylates Urine Opiates Screen Negative Urine Methadone Screen Negative Acetaminophen Ur Barbiturates Screen Negative Ur Phencyclidine Scrn Negative Ur Amphetamines Screen Negative U Benzodiazepines Scrn Negative U Oth Cocaine Metabols Negative U Cannabinoids Screen Negative Alcohol, Quantitative 03/29/18 03/29/18 03/29/18 18:30 18:30 18:50 WBC RBC Hgb Hct MCV MCH MCHC RDW Plt Count MPV Neut % (Auto) Lymph % (Auto) [place] % (Auto) Eos % (Auto) Baso % (Auto) Lymph # (Auto) [place] # (Auto) Eos # (Auto) Baso # (Auto) Absolute Neuts (auto) PT INR APTT pCO2 pO2 173 H HCO3 ABG pH ABG Total CO2 ABG O2 Saturation ABG O2 Content ABG Base Excess ABG Hemoglobin ABG Carboxyhemoglobin POC ABG HHb (Measured) ABG Methemoglobin ABG O2 Capacity ABG Potassium VBG pH 7.25 L VBG pCO2 30.0 L VBG HCO3 13.2 L VBG Total CO2 14.1 L VBG O2 Sat (Calc) 97.2 H VBG Base Excess -12.7 L VBG Potassium 6.6 H* Hgb O2 Saturation Sodium 131.0 L Chloride 96.0 L Glucose 189 H Lactate 11.4 H* FiO2 21.0 Crit Value Called To Aimee giraldo Crit Value Called By Atc Blood Gas Notified Time 1900 Potassium Carbon Dioxide Anion Gap BUN Creatinine Est GFR ( Amer) Est GFR (Non-Af Amer) POC Glucose (mg/dL) Random Glucose Hemoglobin A1c Serum Osmolality Lactic Acid 10.0 H* Calcium Phosphorus Magnesium Total Bilirubin AST ALT Alkaline Phosphatase Ammonia Lactate Dehydrogenase Total Creatine Kinase Troponin I Total Protein Albumin Globulin Albumin/Globulin Ratio Triglycerides Cholesterol LDL Cholesterol Direct HDL Cholesterol Arterial Blood Potassium Venous Blood Potassium 6.6 H* Urine Color Urine Appearance Urine pH Ur Specific [place] Urine Protein Urine Glucose (UA) Urine Ketones Urine Blood Urine Nitrate Urine Bilirubin Urine Urobilinogen Ur Leukocyte Esterase Ur Random Creatinine 150 U Random Total Protein Ur Random Sodium < 5 Digoxin Salicylates Urine Opiates Screen Urine Methadone Screen Acetaminophen Ur Barbiturates Screen Ur Phencyclidine Scrn Ur Amphetamines Screen U Benzodiazepines Scrn U Oth Cocaine Metabols U Cannabinoids Screen Alcohol, Quantitative 03/29/18 03/29/18 03/29/18 21:53 22:30 22:30 WBC RBC Hgb Hct MCV MCH MCHC RDW Plt Count MPV Neut % (Auto) Lymph % (Auto) [place] % (Auto) Eos % (Auto) Baso % (Auto) Lymph # (Auto) [place] # (Auto) Eos # (Auto) Baso # (Auto) Absolute Neuts (auto) PT INR APTT pCO2 pO2 HCO3 ABG pH ABG Total CO2 ABG O2 Saturation ABG O2 Content ABG Base Excess ABG Hemoglobin ABG Carboxyhemoglobin POC ABG HHb (Measured) ABG Methemoglobin ABG O2 Capacity ABG Potassium VBG pH VBG pCO2 VBG HCO3 VBG Total CO2 VBG O2 Sat (Calc) VBG Base Excess VBG Potassium Hgb O2 Saturation Sodium Chloride Glucose Lactate FiO2 Crit Value Called To Crit Value Called By Blood Gas Notified Time Potassium Carbon Dioxide Anion Gap BUN Creatinine Est GFR ( Amer) Est GFR (Non-Af Amer) POC Glucose (mg/dL) 82 Random Glucose Hemoglobin A1c Serum Osmolality 308 H Lactic Acid Calcium Phosphorus Magnesium Total Bilirubin AST ALT Alkaline Phosphatase Ammonia Lactate Dehydrogenase Total Creatine Kinase Troponin I Total Protein Albumin Globulin Albumin/Globulin Ratio Triglycerides Cholesterol LDL Cholesterol Direct HDL Cholesterol Arterial Blood Potassium Venous Blood Potassium Urine Color Urine Appearance Urine pH Ur Specific [place] Urine Protein Urine Glucose (UA) Urine Ketones Urine Blood Urine Nitrate Urine Bilirubin Urine Urobilinogen Ur Leukocyte Esterase Ur Random Creatinine U Random Total Protein Ur Random Sodium Digoxin Salicylates Urine Opiates Screen Urine Methadone Screen Acetaminophen Ur Barbiturates Screen Ur Phencyclidine Scrn Ur Amphetamines Screen U Benzodiazepines Scrn U Oth Cocaine Metabols U Cannabinoids Screen Alcohol, Quantitative < 10 03/29/18 03/30/18 03/30/18 22:30 05:15 06:00 WBC 12.9 H D RBC 4.72 Hgb 13.3 L Hct 41.3 L MCV 87.5 MCH 28.2 MCHC 32.2 RDW 18.1 H Plt Count 179 MPV 10.7 Neut % (Auto) 83.8 H Lymph % (Auto) 5.3 L [place] % (Auto) 10.8 H Eos % (Auto) 0.0 L Baso % (Auto) 0.1 Lymph # (Auto) 0.7 L [place] # (Auto) 1.4 H Eos # (Auto) 0.0 Baso # (Auto) 0.01 Absolute Neuts (auto) 10.81 H PT INR APTT pCO2 25 L pO2 63.0 L HCO3 12.9 L ABG pH 7.32 L ABG Total CO2 13.7 L ABG O2 Saturation 91.1 L ABG O2 Content 17.0 ABG Base Excess -11.4 L ABG Hemoglobin 13.4 ABG Carboxyhemoglobin 0.8 POC ABG HHb (Measured) 8.8 H ABG Methemoglobin 0.1 ABG O2 Capacity 18.7 ABG Potassium VBG pH VBG pCO2 VBG HCO3 VBG Total CO2 VBG O2 Sat (Calc) VBG Base Excess VBG Potassium Hgb O2 Saturation 90.3 L Sodium Chloride Glucose Lactate FiO2 40.0 Crit Value Called To Crit Value Called By Blood Gas Notified Time Potassium Carbon Dioxide Anion Gap BUN Creatinine Est GFR ( Amer) Est GFR (Non-Af Amer) POC Glucose (mg/dL) Random Glucose Hemoglobin A1c Serum Osmolality Lactic Acid Calcium Phosphorus Magnesium Total Bilirubin AST ALT Alkaline Phosphatase Ammonia Lactate Dehydrogenase Total Creatine Kinase Troponin I Total Protein Albumin Globulin Albumin/Globulin Ratio Triglycerides Cholesterol LDL Cholesterol Direct HDL Cholesterol Arterial Blood Potassium Venous Blood Potassium Urine Color Urine Appearance Urine pH Ur Specific [place] Urine Protein Urine Glucose (UA) Urine Ketones Urine Blood Urine Nitrate Urine Bilirubin Urine Urobilinogen Ur Leukocyte Esterase Ur Random Creatinine U Random Total Protein Ur Random Sodium Digoxin Salicylates < 1 L Urine Opiates Screen Urine Methadone Screen Acetaminophen < 10.0 L Ur Barbiturates Screen Ur Phencyclidine Scrn Ur Amphetamines Screen U Benzodiazepines Scrn U Oth Cocaine Metabols U Cannabinoids Screen Alcohol, Quantitative 03/30/18 03/30/18 03/30/18 06:00 06:00 06:00 WBC RBC Hgb Hct MCV MCH MCHC RDW Plt Count MPV Neut % (Auto) Lymph % (Auto) [place] % (Auto) Eos % (Auto) Baso % (Auto) Lymph # (Auto) [place] # (Auto) Eos # (Auto) Baso # (Auto) Absolute Neuts (auto) PT 29.0 H INR 2.57 APTT pCO2 pO2 HCO3 ABG pH ABG Total CO2 ABG O2 Saturation ABG O2 Content ABG Base Excess ABG Hemoglobin ABG Carboxyhemoglobin POC ABG HHb (Measured) ABG Methemoglobin ABG O2 Capacity ABG Potassium VBG pH VBG pCO2 VBG HCO3 VBG Total CO2 VBG O2 Sat (Calc) VBG Base Excess VBG Potassium Hgb O2 Saturation Sodium 140 Chloride 100 Glucose Lactate FiO2 Crit Value Called To Crit Value Called By Blood Gas Notified Time Potassium 6.2 H* Carbon Dioxide 16 L Anion Gap 30 H BUN 67 H Creatinine 4.3 H Est GFR ( Amer) 17 Est GFR (Non-Af Amer) 14 POC Glucose (mg/dL) Random Glucose 51 L Hemoglobin A1c Serum Osmolality Lactic Acid Calcium 8.4 Phosphorus 7.9 H Magnesium 2.3 H Total Bilirubin 2.7 H AST 3530 H ALT 928 H Alkaline Phosphatase 101 Ammonia Lactate Dehydrogenase Total Creatine Kinase Troponin I Total Protein 7.7 Albumin 4.3 Globulin 3.4 Albumin/Globulin Ratio 1.3 Triglycerides 108 Cholesterol 120 L LDL Cholesterol Direct 78 HDL Cholesterol 24 L Arterial Blood Potassium Venous Blood Potassium Urine Color Urine Appearance Urine pH Ur Specific [place] Urine Protein Urine Glucose (UA) Urine Ketones Urine Blood Urine Nitrate Urine Bilirubin Urine Urobilinogen Ur Leukocyte Esterase Ur Random Creatinine U Random Total Protein Ur Random Sodium Digoxin Salicylates Urine Opiates Screen Urine Methadone Screen Acetaminophen Ur Barbiturates Screen Ur Phencyclidine Scrn Ur Amphetamines Screen U Benzodiazepines Scrn U Oth Cocaine Metabols U Cannabinoids Screen Alcohol, Quantitative 03/30/18 03/30/18 03/30/18 06:00 07:49 09:00 WBC RBC Hgb Hct MCV MCH MCHC RDW Plt Count MPV Neut % (Auto) Lymph % (Auto) [place] % (Auto) Eos % (Auto) Baso % (Auto) Lymph # (Auto) [place] # (Auto) Eos # (Auto) Baso # (Auto) Absolute Neuts (auto) PT INR APTT pCO2 pO2 HCO3 ABG pH ABG Total CO2 ABG O2 Saturation ABG O2 Content ABG Base Excess ABG Hemoglobin ABG Carboxyhemoglobin POC ABG HHb (Measured) ABG Methemoglobin ABG O2 Capacity ABG Potassium VBG pH VBG pCO2 VBG HCO3 VBG Total CO2 VBG O2 Sat (Calc) VBG Base Excess VBG Potassium Hgb O2 Saturation Sodium Chloride Glucose Lactate FiO2 Crit Value Called To Crit Value Called By Blood Gas Notified Time Potassium Carbon Dioxide Anion Gap BUN Creatinine Est GFR ( Amer) Est GFR (Non-Af Amer) POC Glucose (mg/dL) 153 H Random Glucose Hemoglobin A1c Serum Osmolality Lactic Acid 10.1 H* Calcium Phosphorus Magnesium Total Bilirubin AST ALT Alkaline Phosphatase Ammonia 78 H Lactate Dehydrogenase Total Creatine Kinase Troponin I Total Protein Albumin Globulin Albumin/Globulin Ratio Triglycerides Cholesterol LDL Cholesterol Direct HDL Cholesterol Arterial Blood Potassium Venous Blood Potassium Urine Color Urine Appearance Urine pH Ur Specific [place] Urine Protein Urine Glucose (UA) Urine Ketones Urine Blood Urine Nitrate Urine Bilirubin Urine Urobilinogen Ur Leukocyte Esterase Ur Random Creatinine U Random Total Protein Ur Random Sodium Digoxin Salicylates Urine Opiates Screen Urine Methadone Screen Acetaminophen Ur Barbiturates Screen Ur Phencyclidine Scrn Ur Amphetamines Screen U Benzodiazepines Scrn U Oth Cocaine Metabols U Cannabinoids Screen Alcohol, Quantitative Radiology Impressions: Radiology Impressions Renal Ultrasound 03/29/18 08:49 IMPRESSION: Unremarkable renal sonogram. Extensive ascites. Chest X-Ray 03/29/18 15:08 IMPRESSION: Mild cardiomegaly moderate vascular congestion right greater than left EKG/Cardiology Studies: Cardiology / EKG Studies 03/29/18 13:23 EKG [ELECTROCARDIOGRAM] Stat Comment: Reason For Exam: sudden back pain Critical Care Progress Note - Nutrition Nutrition: Nutrition Category Date Time Status Heart Healthy Diet [DIET] Diets 03/28/18 Breakfast Active Attending/Attestation - Attestation I have personally seen and examined this patient.: Yes I have fully participated in the care of the patient.: Yes I have reviewed all pertinent clinical information: Yes Notes (Text): 03/30/18 12:06 The patient was seen and examined at the bedside. Patient care was discussed with resident Medical records, lab studies were reviewed and management issues were discussed and formulated. Agree with above treatment plans as outlined in 's note with addition of the following: Acute Respiratory Insufficiency \ hypoxemia \ Acute on chronic systolic chf \ Afib with RVR \ HUGO on CKD \ Elevated LFT \ DM2 \ Acites \ Coagulopathy \ Lactic acidosis -hemodynamic monitoring to maintain MAP>65; continue vasopressor support with levophed -cardiology f\u appreciated -O2 supplementation to maintain Spo2>90 Pao2>60; will switch NRB to [place] -continue nebs and pulmonary toilet -pt DNR\DNI and cannot be intubated -broad spectrum ABX and f\u cultures ; ID team f\u -f\u Bun\Cr and U\o; hyperkalemia temporizing measures given -NPO diet and aspiration precautions -consider GI team eval; f\u serial LFT; shock liver pattern -f\u INR and monitor for bleeding -Palliation and Hospice team were called as per Healthcare Proxy wishes -further treatment vs deescalation of care and comfort measures as per family wishes -Goals of care and advanced directives were discussed wtih proxy at bedside CCM time 37
--- NOTE | 2018-03-30 11:45 | CP.PCM.CON ---
History of Present Illness - History of Present Illness History of Present Illness: Palliative consult requested by Dr Arturo Holt Reason: Goals of care 72 year old male with history old who presented to ED on 03/28/18 with with abdominal distention shortness of breath and swelling of both lower extremities. Found to be in rapid A fib and started on Cardizem drip. His shortness of breath worsened, 02 sats dropped and [employer] called. He was transferred to MICU for hemodynamic monitoring. He is in multi organ failure. CT of abdomen: Moderate bilateral pleural effusions, moderate ascites, multiple gall stones. Renal US: Extensive ascites, otherwise unremarkable. PMHx: CAD,CHF,HTN,gout, A Fib,AICD, gastric cancer, PSHx: CABG, gastric resection, right foot TMA. Social History: Current smoker,occasional alcohol, no drug abuse. Lived alone Family History: Non contributory Advance Care Planning: The pait has an Advanced Directive. He is DNR/DNI Review of Systems: As per HPI, unable to obtain the patient is altered/uncommunicative. Past Patient History - Infectious Disease Hx of Infectious Diseases: None - Tetanus Immunizations Tetanus Immunization: Unknown - Past Medical History & Family History Past Family History: Reviewed and not pertinent - Past Social History Smoking Status: Heavy Smoker > 10 Cigarettes Daily - CARDIAC Hx Cardia Arrhythmia: Yes (Afib) Hx Congestive Heart Failure: Yes Hx Hypercholesterolemia: Yes Hx Hypertension: Yes Hx Internal Defibrillator: Yes Hx Pacemaker: Yes (PPM) - PULMONARY Hx Asthma: Yes Hx Emphysema: Yes - NEUROLOGICAL Hx Seizures: Yes - HEENT Hx HEENT Problems: Yes (GLASSES) - RENAL Hx Chronic Kidney Disease: No - ENDOCRINE/METABOLIC Hx Diabetes Mellitus Type 2: Yes - HEMATOLOGICAL/ONCOLOGICAL Hx Cancer: Yes (Lung, Bladder) Hx Chemotherapy: Yes - INTEGUMENTARY Hx Dermatological Problems: No - MUSCULOSKELETAL/RHEUMATOLOGICAL Hx Falls: No Hx Gout: Yes - GASTROINTESTINAL Hx Gastrointestinal Disorders: Yes (POOR APPETITE) - GENITOURINARY/GYNECOLOGICAL Hx Genitourinary Disorders: No - PSYCHIATRIC Hx Substance Use: No - SURGICAL HISTORY Hx Open Heart Surgery: Yes (CABG) - ANESTHESIA Hx Anesthesia: Yes Hx Anesthesia Reactions: No Hx Malignant Hyperthermia: No Meds Allergies/Adverse Reactions: Allergies Allergy/AdvReac Type Severity Reaction Status Date / Time No Known Allergies Allergy Verified 09/02/17 15:44 - Medications Medications: Current Medications Albuterol/Ipratropium (Duoneb 3 Mg/0.5 Mg (3 Ml) Ud) 3 ml IH BIDRESP JASWANT Last Admin: 03/30/18 07:38 Dose: 3 ml Albuterol/Ipratropium (Duoneb 3 Mg/0.5 Mg (3 Ml) Ud) 3 ml IH [id number] PRN PRN Reason: Shortness of Breath Last Admin: 03/29/18 14:30 Dose: 3 ml Dextrose (Dextrose 50% Inj) 0 ml IV STAT PRN; Protocol PRN Reason: Hypoglycemia Protocol Digoxin (Digoxin) 0.125 mg PO 1400 JASWANT Last Admin: 03/29/18 15:44 Dose: Not Given Famotidine (Pepcid) 20 mg PO DAILY [facility] Last Admin: 03/30/18 09:23 Dose: 20 mg NOREPINEPHRINE BIT/0.9 % NACL (Levophed 4 Mg/ 250 Ml Ns Premixed) 4 mg in 250 mls @ 15 mls/hr IV .[id number] PRN; Protocol PRN Reason: TITRATE PER MD ORDER Last Admin: 03/30/18 02:56 Dose: 4 mcg/min, 15 mls/hr Meropenem/Sodium Chloride (Merrem Iv 500 Mg/Ns 50 Ml) 500 mg in 50 mls @ 100 mls/hr IVPB Q12 JASWANT; Protocol Stop: 04/05/18 22:01 Last Admin: 03/30/18 09:27 Dose: 100 mls/hr Sodium Bicarbonate 150 meq/ (Dextrose) 1,150 mls @ 100 mls/hr IV .[id number] [facility] Dextrose (Dextrose 5% In Water 1000 Ml) 1,000 mls @ 0 mls/hr IV .Q0M PRN; Protocol PRN Reason: Hypoglycemia Protocol Dexmedetomidine HCl (Precedex 400mcg/100ml) 400 mcg in 100 mls @ 4.899 mls/hr IV .[id number] PRN; Protocol PRN Reason: Agitation Last Admin: 03/30/18 11:19 Dose: 0.2 mcg/kg/hr, 4.899 mls/hr Insulin Human Lispro (Humalog Low) 0 units SC ACHS JASWANT; Protocol Last Admin: 03/30/18 08:05 Dose: Not Given Metoprolol Tartrate (Lopressor) 50 mg PO BRKDIN [facility] Last Admin: 03/30/18 09:02 Dose: Not Given Mupirocin (Bactroban Ointment) 0 gm TOP BID [facility] Physical Exam - Constitutional Appears: Cachectic, Chronically Ill - Eye Exam Eye Exam: Normal appearance - ENT Exam ENT Exam: Mucous Membranes Moist - Respiratory Exam Respiratory Exam: Decreased Breath Sounds Additional comments: high flow 02 - Cardiovascular Exam Cardiovascular Exam: Irregular Rhythm, +S1, +S2 - GI/Abdominal Exam GI & Abdominal Exam: Distended, Firm - Extremities Exam Additional comments: 2 + edema lower extremities - Neurological Exam Neurological exam: Altered - Skin Skin Exam: Dry, Warm - Additional Findings Additional findings: Palliative performance scale rating 20% Results - Vital Signs Recent Vital Signs: Last Vital Signs Temp 97.3 F L 03/30/18 06:00 Pulse 74 03/30/18 06:00 Resp 19 03/29/18 12:00 BP 88/60 L 03/29/18 17:43 Pulse Ox 93 L 03/29/18 06:00 - Labs Result Diagrams: 03/30/18 06:00 03/30/18 06:00 Labs: Laboratory Results - last 24 hr 03/29/18 03/29/18 03/29/18 09:45 12:20 13:25 WBC RBC Hgb Hct MCV MCH MCHC RDW Plt Count MPV Neut % (Auto) Lymph % (Auto) [place] % (Auto) Eos % (Auto) Baso % (Auto) Lymph # (Auto) [place] # (Auto) Eos # (Auto) Baso # (Auto) Absolute Neuts (auto) PT INR APTT pCO2 pO2 67 H HCO3 ABG pH ABG Total CO2 ABG O2 Saturation ABG O2 Content ABG Base Excess ABG Hemoglobin ABG Carboxyhemoglobin POC ABG HHb (Measured) ABG Methemoglobin ABG O2 Capacity ABG Potassium VBG pH 7.30 L VBG pCO2 31.0 L VBG HCO3 15.3 L VBG Total CO2 16.3 L VBG O2 Sat (Calc) 92.4 H VBG Base Excess -9.9 L VBG Potassium 5.6 H Hgb O2 Saturation Sodium 129.0 L Chloride 96.0 L Glucose 269 H Lactate 4.7 H* FiO2 21.0 Crit Value Called To Michelle cooper Crit Value Called By Ab Blood Gas Notified Time 1225 Potassium Carbon Dioxide Anion Gap BUN Creatinine Est GFR ( Amer) Est GFR (Non-Af Amer) POC Glucose (mg/dL) Random Glucose Hemoglobin A1c 8.8 H Serum Osmolality Lactic Acid Calcium Phosphorus Magnesium Total Bilirubin AST ALT Alkaline Phosphatase Ammonia Lactate Dehydrogenase Total Creatine Kinase Troponin I 0.07 Total Protein Albumin Globulin Albumin/Globulin Ratio Triglycerides Cholesterol LDL Cholesterol Direct HDL Cholesterol Arterial Blood Potassium Venous Blood Potassium 5.6 H Urine Color Urine Appearance Urine pH Ur Specific [place] Urine Protein Urine Glucose (UA) Urine Ketones Urine Blood Urine Nitrate Urine Bilirubin Urine Urobilinogen Ur Leukocyte Esterase Ur Random Creatinine U Random Total Protein Ur Random Sodium Digoxin Salicylates Urine Opiates Screen Urine Methadone Screen Acetaminophen Ur Barbiturates Screen Ur Phencyclidine Scrn Ur Amphetamines Screen U Benzodiazepines Scrn U Oth Cocaine Metabols U Cannabinoids Screen Alcohol, Quantitative 03/29/18 03/29/18 03/29/18 14:45 14:52 15:15 WBC 6.8 RBC 4.72 Hgb 13.4 L Hct 40.9 L MCV 86.7 MCH 28.4 MCHC 32.8 RDW 17.6 H Plt Count 242 MPV 9.8 Neut % (Auto) 76.0 H Lymph % (Auto) 16.7 L [place] % (Auto) 6.5 H Eos % (Auto) 0.1 L Baso % (Auto) 0.7 Lymph # (Auto) 1.1 L [place] # (Auto) 0.4 Eos # (Auto) 0.0 Baso # (Auto) 0.05 Absolute Neuts (auto) 5.12 PT INR APTT pCO2 23 L pO2 83.0 HCO3 8.2 L* ABG pH 7.16 L* ABG Total CO2 8.9 L ABG O2 Saturation 93.6 L ABG O2 Content ABG Base Excess -18.7 L ABG Hemoglobin ABG Carboxyhemoglobin POC ABG HHb (Measured) ABG Methemoglobin ABG O2 Capacity ABG Potassium 5.3 H VBG pH VBG pCO2 VBG HCO3 VBG Total CO2 VBG O2 Sat (Calc) VBG Base Excess VBG Potassium Hgb O2 Saturation Sodium 131.0 L Chloride 101.0 Glucose 193 H Lactate 9.8 H* FiO2 40.0 Crit Value Called To Betty hooker rn Crit Value Called By Blood Gas Notified Time 1452 Potassium Carbon Dioxide Anion Gap BUN Creatinine Est GFR ( Amer) Est GFR (Non-Af Amer) POC Glucose (mg/dL) 250 H Random Glucose Hemoglobin A1c Serum Osmolality Lactic Acid Calcium Phosphorus Magnesium Total Bilirubin AST ALT Alkaline Phosphatase Ammonia Lactate Dehydrogenase Total Creatine Kinase Troponin I Total Protein Albumin Globulin Albumin/Globulin Ratio Triglycerides Cholesterol LDL Cholesterol Direct HDL Cholesterol Arterial Blood Potassium 5.3 H Venous Blood Potassium Urine Color Urine Appearance Urine pH Ur Specific [place] Urine Protein Urine Glucose (UA) Urine Ketones Urine Blood Urine Nitrate Urine Bilirubin Urine Urobilinogen Ur Leukocyte Esterase Ur Random Creatinine U Random Total Protein Ur Random Sodium Digoxin Salicylates Urine Opiates Screen Urine Methadone Screen Acetaminophen Ur Barbiturates Screen Ur Phencyclidine Scrn Ur Amphetamines Screen U Benzodiazepines Scrn U Oth Cocaine Metabols U Cannabinoids Screen Alcohol, Quantitative 03/29/18 03/29/18 03/29/18 15:30 15:30 15:30 WBC RBC Hgb Hct MCV MCH MCHC RDW Plt Count MPV Neut % (Auto) Lymph % (Auto) [place] % (Auto) Eos % (Auto) Baso % (Auto) Lymph # (Auto) [place] # (Auto) Eos # (Auto) Baso # (Auto) Absolute Neuts (auto) PT 158.9 H INR 14.32 H* APTT 76.4 H pCO2 pO2 HCO3 ABG pH ABG Total CO2 ABG O2 Saturation ABG O2 Content ABG Base Excess ABG Hemoglobin ABG Carboxyhemoglobin POC ABG HHb (Measured) ABG Methemoglobin ABG O2 Capacity ABG Potassium VBG pH VBG pCO2 VBG HCO3 VBG Total CO2 VBG O2 Sat (Calc) VBG Base Excess VBG Potassium Hgb O2 Saturation Sodium 134 Chloride 98 Glucose Lactate FiO2 Crit Value Called To Crit Value Called By Blood Gas Notified Time Potassium 6.0 H* Carbon Dioxide 13 L Anion Gap 29 H BUN 64 H Creatinine 3.6 H Est GFR ( Amer) 20 Est GFR (Non-Af Amer) 17 POC Glucose (mg/dL) Random Glucose 197 H Hemoglobin A1c Serum Osmolality Lactic Acid 8.9 H* Calcium 8.4 Phosphorus 7.8 H Magnesium 2.5 H Total Bilirubin 1.2 AST 49 ALT 15 Alkaline Phosphatase 77 Ammonia Lactate Dehydrogenase Total Creatine Kinase Troponin I Total Protein 7.2 Albumin 4.0 Globulin 3.2 Albumin/Globulin Ratio 1.2 Triglycerides Cholesterol LDL Cholesterol Direct HDL Cholesterol Arterial Blood Potassium Venous Blood Potassium Urine Color Urine Appearance Urine pH Ur Specific [place] Urine Protein Urine Glucose (UA) Urine Ketones Urine Blood Urine Nitrate Urine Bilirubin Urine Urobilinogen Ur Leukocyte Esterase Ur Random Creatinine U Random Total Protein Ur Random Sodium Digoxin Salicylates Urine Opiates Screen Urine Methadone Screen Acetaminophen Ur Barbiturates Screen Ur Phencyclidine Scrn Ur Amphetamines Screen U Benzodiazepines Scrn U Oth Cocaine Metabols U Cannabinoids Screen Alcohol, Quantitative 03/29/18 03/29/18 03/29/18 15:40 16:27 17:20 WBC RBC Hgb Hct MCV MCH MCHC RDW Plt Count MPV Neut % (Auto) Lymph % (Auto) [place] % (Auto) Eos % (Auto) Baso % (Auto) Lymph # (Auto) [place] # (Auto) Eos # (Auto) Baso # (Auto) Absolute Neuts (auto) PT INR APTT pCO2 pO2 HCO3 ABG pH ABG Total CO2 ABG O2 Saturation ABG O2 Content ABG Base Excess ABG Hemoglobin ABG Carboxyhemoglobin POC ABG HHb (Measured) ABG Methemoglobin ABG O2 Capacity ABG Potassium VBG pH VBG pCO2 VBG HCO3 VBG Total CO2 VBG O2 Sat (Calc) VBG Base Excess VBG Potassium Hgb O2 Saturation Sodium Chloride Glucose Lactate FiO2 Crit Value Called To Crit Value Called By Blood Gas Notified Time Potassium Carbon Dioxide Anion Gap BUN Creatinine Est GFR ( Amer) Est GFR (Non-Af Amer) POC Glucose (mg/dL) Random Glucose Hemoglobin A1c Serum Osmolality Lactic Acid Calcium Phosphorus Magnesium Total Bilirubin AST ALT Alkaline Phosphatase Ammonia Lactate Dehydrogenase 524 Total Creatine Kinase 181 Troponin I Total Protein Albumin Globulin Albumin/Globulin Ratio Triglycerides Cholesterol LDL Cholesterol Direct HDL Cholesterol Arterial Blood Potassium Venous Blood Potassium Urine Color Yellow Urine Appearance Clear Urine pH 5.5 Ur Specific [place] >= 1.030 Urine Protein Negative Urine Glucose (UA) Negative Urine Ketones Negative Urine Blood Negative Urine Nitrate Negative Urine Bilirubin Negative Urine Urobilinogen 0.2 Ur Leukocyte Esterase Negative Ur Random Creatinine U Random Total Protein Ur Random Sodium Digoxin < 0.4 L Salicylates Urine Opiates Screen Urine Methadone Screen Acetaminophen Ur Barbiturates Screen Ur Phencyclidine Scrn Ur Amphetamines Screen U Benzodiazepines Scrn U Oth Cocaine Metabols U Cannabinoids Screen Alcohol, Quantitative 02/05/19 02/05/19 02/05/19 17:30 17:30 18:30 WBC RBC Hgb Hct MCV MCH MCHC RDW Plt Count MPV Neut % (Auto) Lymph % (Auto) [place] % (Auto) Eos % (Auto) Baso % (Auto) Lymph # (Auto) [place] # (Auto) Eos # (Auto) Baso # (Auto) Absolute Neuts (auto) PT INR APTT pCO2 pO2 HCO3 ABG pH ABG Total CO2 ABG O2 Saturation ABG O2 Content ABG Base Excess ABG Hemoglobin ABG Carboxyhemoglobin POC ABG HHb (Measured) ABG Methemoglobin ABG O2 Capacity ABG Potassium VBG pH VBG pCO2 VBG HCO3 VBG Total CO2 VBG O2 Sat (Calc) VBG Base Excess VBG Potassium Hgb O2 Saturation Sodium 136 Chloride 102 Glucose Lactate FiO2 Crit Value Called To Crit Value Called By Blood Gas Notified Time Potassium 5.5 H Carbon Dioxide 13 L Anion Gap 26 H BUN 63 H Creatinine 3.7 H Est GFR ( Amer) 20 Est GFR (Non-Af Amer) 16 POC Glucose (mg/dL) Random Glucose 110 Hemoglobin A1c Serum Osmolality Lactic Acid Calcium 8.3 L Phosphorus 7.1 H Magnesium 2.4 H Total Bilirubin 1.2 AST 126 H D ALT 27 Alkaline Phosphatase 73 Ammonia Lactate Dehydrogenase Total Creatine Kinase Troponin I Total Protein 6.9 Albumin 3.9 Globulin 3.1 Albumin/Globulin Ratio 1.3 Triglycerides Cholesterol LDL Cholesterol Direct HDL Cholesterol Arterial Blood Potassium Venous Blood Potassium Urine Color Urine Appearance Urine pH Ur Specific [place] Urine Protein Urine Glucose (UA) Urine Ketones Urine Blood Urine Nitrate Urine Bilirubin Urine Urobilinogen Ur Leukocyte Esterase Ur Random Creatinine U Random Total Protein 14 Ur Random Sodium Digoxin Salicylates Urine Opiates Screen Negative Urine Methadone Screen Negative Acetaminophen Ur Barbiturates Screen Negative Ur Phencyclidine Scrn Negative Ur Amphetamines Screen Negative U Benzodiazepines Scrn Negative U Oth Cocaine Metabols Negative U Cannabinoids Screen Negative Alcohol, Quantitative 03/29/18 03/29/18 03/29/18 18:30 18:30 18:50 WBC RBC Hgb Hct MCV MCH MCHC RDW Plt Count MPV Neut % (Auto) Lymph % (Auto) [place] % (Auto) Eos % (Auto) Baso % (Auto) Lymph # (Auto) [place] # (Auto) Eos # (Auto) Baso # (Auto) Absolute Neuts (auto) PT INR APTT pCO2 pO2 173 H HCO3 ABG pH ABG Total CO2 ABG O2 Saturation ABG O2 Content ABG Base Excess ABG Hemoglobin ABG Carboxyhemoglobin POC ABG HHb (Measured) ABG Methemoglobin ABG O2 Capacity ABG Potassium VBG pH 7.25 L VBG pCO2 30.0 L VBG HCO3 13.2 L VBG Total CO2 14.1 L VBG O2 Sat (Calc) 97.2 H VBG Base Excess -12.7 L VBG Potassium 6.6 H* Hgb O2 Saturation Sodium 131.0 L Chloride 96.0 L Glucose 189 H Lactate 11.4 H* FiO2 21.0 Crit Value Called To Aimee giraldo Crit Value Called By Atc Blood Gas Notified Time 1900 Potassium Carbon Dioxide Anion Gap BUN Creatinine Est GFR ( Amer) Est GFR (Non-Af Amer) POC Glucose (mg/dL) Random Glucose Hemoglobin A1c Serum Osmolality Lactic Acid 10.0 H* Calcium Phosphorus Magnesium Total Bilirubin AST ALT Alkaline Phosphatase Ammonia Lactate Dehydrogenase Total Creatine Kinase Troponin I Total Protein Albumin Globulin Albumin/Globulin Ratio Triglycerides Cholesterol LDL Cholesterol Direct HDL Cholesterol Arterial Blood Potassium Venous Blood Potassium 6.6 H* Urine Color Urine Appearance Urine pH Ur Specific [place] Urine Protein Urine Glucose (UA) Urine Ketones Urine Blood Urine Nitrate Urine Bilirubin Urine Urobilinogen Ur Leukocyte Esterase Ur Random Creatinine 150 U Random Total Protein Ur Random Sodium < 5 Digoxin Salicylates Urine Opiates Screen Urine Methadone Screen Acetaminophen Ur Barbiturates Screen Ur Phencyclidine Scrn Ur Amphetamines Screen U Benzodiazepines Scrn U Oth Cocaine Metabols U Cannabinoids Screen Alcohol, Quantitative 03/29/18 03/29/18 03/29/18 21:53 22:30 22:30 WBC RBC Hgb Hct MCV MCH MCHC RDW Plt Count MPV Neut % (Auto) Lymph % (Auto) [place] % (Auto) Eos % (Auto) Baso % (Auto) Lymph # (Auto) [place] # (Auto) Eos # (Auto) Baso # (Auto) Absolute Neuts (auto) PT INR APTT pCO2 pO2 HCO3 ABG pH ABG Total CO2 ABG O2 Saturation ABG O2 Content ABG Base Excess ABG Hemoglobin ABG Carboxyhemoglobin POC ABG HHb (Measured) ABG Methemoglobin ABG O2 Capacity ABG Potassium VBG pH VBG pCO2 VBG HCO3 VBG Total CO2 VBG O2 Sat (Calc) VBG Base Excess VBG Potassium Hgb O2 Saturation Sodium Chloride Glucose Lactate FiO2 Crit Value Called To Crit Value Called By Blood Gas Notified Time Potassium Carbon Dioxide Anion Gap BUN Creatinine Est GFR ( Amer) Est GFR (Non-Af Amer) POC Glucose (mg/dL) 82 Random Glucose Hemoglobin A1c Serum Osmolality 308 H Lactic Acid Calcium Phosphorus Magnesium Total Bilirubin AST ALT Alkaline Phosphatase Ammonia Lactate Dehydrogenase Total Creatine Kinase Troponin I Total Protein Albumin Globulin Albumin/Globulin Ratio Triglycerides Cholesterol LDL Cholesterol Direct HDL Cholesterol Arterial Blood Potassium Venous Blood Potassium Urine Color Urine Appearance Urine pH Ur Specific [place] Urine Protein Urine Glucose (UA) Urine Ketones Urine Blood Urine Nitrate Urine Bilirubin Urine Urobilinogen Ur Leukocyte Esterase Ur Random Creatinine U Random Total Protein Ur Random Sodium Digoxin Salicylates Urine Opiates Screen Urine Methadone Screen Acetaminophen Ur Barbiturates Screen Ur Phencyclidine Scrn Ur Amphetamines Screen U Benzodiazepines Scrn U Oth Cocaine Metabols U Cannabinoids Screen Alcohol, Quantitative < 10 03/29/18 03/30/18 03/30/18 22:30 05:15 06:00 WBC 12.9 H D RBC 4.72 Hgb 13.3 L Hct 41.3 L MCV 87.5 MCH 28.2 MCHC 32.2 RDW 18.1 H Plt Count 179 MPV 10.7 Neut % (Auto) 83.8 H Lymph % (Auto) 5.3 L [place] % (Auto) 10.8 H Eos % (Auto) 0.0 L Baso % (Auto) 0.1 Lymph # (Auto) 0.7 L [place] # (Auto) 1.4 H Eos # (Auto) 0.0 Baso # (Auto) 0.01 Absolute Neuts (auto) 10.81 H PT INR APTT pCO2 25 L pO2 63.0 L HCO3 12.9 L ABG pH 7.32 L ABG Total CO2 13.7 L ABG O2 Saturation 91.1 L ABG O2 Content 17.0 ABG Base Excess -11.4 L ABG Hemoglobin 13.4 ABG Carboxyhemoglobin 0.8 POC ABG HHb (Measured) 8.8 H ABG Methemoglobin 0.1 ABG O2 Capacity 18.7 ABG Potassium VBG pH VBG pCO2 VBG HCO3 VBG Total CO2 VBG O2 Sat (Calc) VBG Base Excess VBG Potassium Hgb O2 Saturation 90.3 L Sodium Chloride Glucose Lactate FiO2 40.0 Crit Value Called To Crit Value Called By Blood Gas Notified Time Potassium Carbon Dioxide Anion Gap BUN Creatinine Est GFR ( Amer) Est GFR (Non-Af Amer) POC Glucose (mg/dL) Random Glucose Hemoglobin A1c Serum Osmolality Lactic Acid Calcium Phosphorus Magnesium Total Bilirubin AST ALT Alkaline Phosphatase Ammonia Lactate Dehydrogenase Total Creatine Kinase Troponin I Total Protein Albumin Globulin Albumin/Globulin Ratio Triglycerides Cholesterol LDL Cholesterol Direct HDL Cholesterol Arterial Blood Potassium Venous Blood Potassium Urine Color Urine Appearance Urine pH Ur Specific [place] Urine Protein Urine Glucose (UA) Urine Ketones Urine Blood Urine Nitrate Urine Bilirubin Urine Urobilinogen Ur Leukocyte Esterase Ur Random Creatinine U Random Total Protein Ur Random Sodium Digoxin Salicylates < 1 L Urine Opiates Screen Urine Methadone Screen Acetaminophen < 10.0 L Ur Barbiturates Screen Ur Phencyclidine Scrn Ur Amphetamines Screen U Benzodiazepines Scrn U Oth Cocaine Metabols U Cannabinoids Screen Alcohol, Quantitative 03/30/18 03/30/18 03/30/18 06:00 06:00 06:00 WBC RBC Hgb Hct MCV MCH MCHC RDW Plt Count MPV Neut % (Auto) Lymph % (Auto) [place] % (Auto) Eos % (Auto) Baso % (Auto) Lymph # (Auto) [place] # (Auto) Eos # (Auto) Baso # (Auto) Absolute Neuts (auto) PT 29.0 H INR 2.57 APTT pCO2 pO2 HCO3 ABG pH ABG Total CO2 ABG O2 Saturation ABG O2 Content ABG Base Excess ABG Hemoglobin ABG Carboxyhemoglobin POC ABG HHb (Measured) ABG Methemoglobin ABG O2 Capacity ABG Potassium VBG pH VBG pCO2 VBG HCO3 VBG Total CO2 VBG O2 Sat (Calc) VBG Base Excess VBG Potassium Hgb O2 Saturation Sodium 140 Chloride 100 Glucose Lactate FiO2 Crit Value Called To Crit Value Called By Blood Gas Notified Time Potassium 6.2 H* Carbon Dioxide 16 L Anion Gap 30 H BUN 67 H Creatinine 4.3 H Est GFR ( Amer) 17 Est GFR (Non-Af Amer) 14 POC Glucose (mg/dL) Random Glucose 51 L Hemoglobin A1c Serum Osmolality Lactic Acid Calcium 8.4 Phosphorus 7.9 H Magnesium 2.3 H Total Bilirubin 2.7 H AST 3530 H ALT 928 H Alkaline Phosphatase 101 Ammonia Lactate Dehydrogenase Total Creatine Kinase Troponin I Total Protein 7.7 Albumin 4.3 Globulin 3.4 Albumin/Globulin Ratio 1.3 Triglycerides 108 Cholesterol 120 L LDL Cholesterol Direct 78 HDL Cholesterol 24 L Arterial Blood Potassium Venous Blood Potassium Urine Color Urine Appearance Urine pH Ur Specific [place] Urine Protein Urine Glucose (UA) Urine Ketones Urine Blood Urine Nitrate Urine Bilirubin Urine Urobilinogen Ur Leukocyte Esterase Ur Random Creatinine U Random Total Protein Ur Random Sodium Digoxin Salicylates Urine Opiates Screen Urine Methadone Screen Acetaminophen Ur Barbiturates Screen Ur Phencyclidine Scrn Ur Amphetamines Screen U Benzodiazepines Scrn U Oth Cocaine Metabols U Cannabinoids Screen Alcohol, Quantitative 03/30/18 03/30/18 03/30/18 06:00 07:49 09:00 WBC RBC Hgb Hct MCV MCH MCHC RDW Plt Count MPV Neut % (Auto) Lymph % (Auto) [place] % (Auto) Eos % (Auto) Baso % (Auto) Lymph # (Auto) [place] # (Auto) Eos # (Auto) Baso # (Auto) Absolute Neuts (auto) PT INR APTT pCO2 pO2 HCO3 ABG pH ABG Total CO2 ABG O2 Saturation ABG O2 Content ABG Base Excess ABG Hemoglobin ABG Carboxyhemoglobin POC ABG HHb (Measured) ABG Methemoglobin ABG O2 Capacity ABG Potassium VBG pH VBG pCO2 VBG HCO3 VBG Total CO2 VBG O2 Sat (Calc) VBG Base Excess VBG Potassium Hgb O2 Saturation Sodium Chloride Glucose Lactate FiO2 Crit Value Called To Crit Value Called By Blood Gas Notified Time Potassium Carbon Dioxide Anion Gap BUN Creatinine Est GFR ( Amer) Est GFR (Non-Af Amer) POC Glucose (mg/dL) 153 H Random Glucose Hemoglobin A1c Serum Osmolality Lactic Acid 10.1 H* Calcium Phosphorus Magnesium Total Bilirubin AST ALT Alkaline Phosphatase Ammonia 78 H Lactate Dehydrogenase Total Creatine Kinase Troponin I Total Protein Albumin Globulin Albumin/Globulin Ratio Triglycerides Cholesterol LDL Cholesterol Direct HDL Cholesterol Arterial Blood Potassium Venous Blood Potassium Urine Color Urine Appearance Urine pH Ur Specific [place] Urine Protein Urine Glucose (UA) Urine Ketones Urine Blood Urine Nitrate Urine Bilirubin Urine Urobilinogen Ur Leukocyte Esterase Ur Random Creatinine U Random Total Protein Ur Random Sodium Digoxin Salicylates Urine Opiates Screen Urine Methadone Screen Acetaminophen Ur Barbiturates Screen Ur Phencyclidine Scrn Ur Amphetamines Screen U Benzodiazepines Scrn U Oth Cocaine Metabols U Cannabinoids Screen Alcohol, Quantitative Assessment & Plan - Assessment and Plan (Free Text) Assessment: 72 year old male with extensive history(see PMH) who is admitted with end stage cardiomyopathy, multi organ dysfunction, respiratory failure, ascites The patient is altered.High flow 02. Levophed, precedex. Patient's POA, Mark Fair at bedside. POA is familiar with patients medical history. POA has been updated of patients condition by the ICU team and understands that patients prognosis is poor. Options for continuation of aggressive medical care vs comfort care discussed at length. POA has decided to pursue comfort care in accordance with patient's wishes as defined in his advance directive. Hospice services explained detail. Psychosocial support provided. Spiritual support offered. Time spent with POA in goals of care and advance care planning, 30 minutes Plan: Goals of care and advance care planning Hospice evaluation Continue current medical orders until transitioned to hospice
--- NOTE | 2018-03-30 11:48 | CP.PCM.PN ---
Subjective - Date & Time of Evaluation Date of Evaluation: 03/30/18 Time of Evaluation: 07:10 - Subjective Subjective: Surgery Progress note. Dr. Keller Pt seen and examined bedside. No acute events overnight. No N/V. No F/C. Denies any abdominal pain. No new complaints. Still c/o shortness of breath. States that he does not want to be intubated or resuscitated if needed. Objective - Vital Signs/Intake and Output Vital Signs (last 24 hours): Temp Pulse Resp BP Pulse Ox 97.3 F L 74 19 88/60 L 93 L 03/30/18 06:00 03/30/18 06:00 03/29/18 12:00 03/29/18 17:43 03/29/18 06:00 Intake and Output: 03/30/18 03/30/18 06:59 18:59 Intake Total 1400 Output Total 100 Balance 1300 - Medications Medications: Current Medications Albuterol/Ipratropium (Duoneb 3 Mg/0.5 Mg (3 Ml) Ud) 3 ml IH BIDRESP JASAWNT Last Admin: 03/30/18 07:38 Dose: 3 ml Albuterol/Ipratropium (Duoneb 3 Mg/0.5 Mg (3 Ml) Ud) 3 ml IH [id number] PRN PRN Reason: Shortness of Breath Last Admin: 03/29/18 14:30 Dose: 3 ml Dextrose (Dextrose 50% Inj) 0 ml IV STAT PRN; Protocol PRN Reason: Hypoglycemia Protocol Digoxin (Digoxin) 0.125 mg PO 1400 JASWANT Last Admin: 03/29/18 15:44 Dose: Not Given Famotidine (Pepcid) 20 mg PO DAILY JASWANT Last Admin: 03/30/18 09:23 Dose: 20 mg NOREPINEPHRINE BIT/0.9 % NACL (Levophed 4 Mg/ 250 Ml Ns Premixed) 4 mg in 250 mls @ 15 mls/hr IV .[id number] PRN; Protocol PRN Reason: TITRATE PER MD ORDER Last Admin: 03/30/18 02:56 Dose: 4 mcg/min, 15 mls/hr Meropenem/Sodium Chloride (Merrem Iv 500 Mg/Ns 50 Ml) 500 mg in 50 mls @ 100 mls/hr IVPB Q12 JASWANT; Protocol Stop: 04/05/18 22:01 Last Admin: 03/30/18 09:27 Dose: 100 mls/hr Sodium Bicarbonate 150 meq/ (Dextrose) 1,150 mls @ 100 mls/hr IV .[id number] [facility] Dextrose (Dextrose 5% In Water 1000 Ml) 1,000 mls @ 0 mls/hr IV .Q0M PRN; Protocol PRN Reason: Hypoglycemia Protocol Dexmedetomidine HCl (Precedex 400mcg/100ml) 400 mcg in 100 mls @ 4.899 mls/hr IV .[id number] PRN; Protocol PRN Reason: Agitation Last Admin: 03/30/18 11:19 Dose: 0.2 mcg/kg/hr, 4.899 mls/hr Insulin Human Lispro (Humalog Low) 0 units SC ACHS [facility]; Protocol Last Admin: 03/30/18 08:05 Dose: Not Given Metoprolol Tartrate (Lopressor) 50 mg PO BRKDIN [facility] Last Admin: 03/30/18 09:02 Dose: Not Given Mupirocin (Bactroban Ointment) 0 gm TOP BID [facility] - Labs Labs: 03/30/18 06:00 03/30/18 06:00 PT 29.0 SECONDS (9.4-12.5) H 03/30/18 06:00 INR 2.57 03/30/18 06:00 APTT 76.4 Seconds (26.9-38.3) H 03/29/18 15:30 - Constitutional Appears: Older Than Stated Age - Head Exam Head Exam: ATRAUMATIC, NORMAL INSPECTION, NORMOCEPHALIC - Eye Exam Eye Exam: EOMI, Normal appearance. absent: Scleral icterus - ENT Exam ENT Exam: Mucous Membranes Moist - Cardiovascular Exam Cardiovascular Exam: RRR. absent: JVD - GI/Abdominal Exam GI & Abdominal Exam: absent: Firm, Guarding, Rebound Additional comments: Mild tenderness to palpation. No rebound. No guarding. - Extremities Exam Additional comments: pretibial pitting edema. - Neurological Exam Neurological Exam: Awake - Psychiatric Exam Psychiatric exam: Normal Affect, Normal Mood - Skin Skin Exam: Dry, Intact, Normal Color, Warm Assessment and Plan - Assessment and Plan (Free Text) Assessment: 72yo M w PMHx of HTN, HLD, CAD, DM, A.Fib on coumadin, CHF here with worsening a bdominal distention, lactic acidosis, and supratheraputic INR. Plan: - continue to monitor - consider paracenthesis and thoracenthesis by IR - Low clinical suspicion for intraabdominal surgical pathology - Medical management as per ICU and primary teams Further recs as per Dr. Krishna Carreon PGY2 surgery
[2018-03-30] MEDS ORDERED: Vancomycin 1.5 GM in Sodium Chloride 0.9% 500 ML IVPB ONE (12:23)
[2018-03-30] MEDS: Albuterol-Ipratrop 3 mg / 0.5 (3 ml) UD IH PRN (13:31)
--- NOTE | 2018-03-30 14:15 | RAD ---
Date of service: 03/30/2018 HISTORY: PICC placement COMPARISON: 2018. FINDINGS: LUNGS: Pulmonary edema approximately stable. PLEURA: No significant pleural effusion identified, no pneumothorax apparent. CARDIOVASCULAR: Atherosclerotic calcifications identified primarily aortic arch. PICC line in satisfactory position the tip is in the SVC. No pneumothorax identified. OSSEOUS STRUCTURES: No significant abnormalities. VISUALIZED UPPER ABDOMEN: Normal. OTHER FINDINGS: None. IMPRESSION: Stable pulmonary edema. Satisfactory position of recently placed PICC line. No adverse findings/no pneumothorax.
--- NOTE | 2018-03-30 14:16 | CP.PCM.DIS ---
<Chely Washington - Last Filed: 03/30/18 15:00> Provider - Provider Date of Admission: 03/28/18 16:41 Attending physician: Kike Holt MD Primary care physician: Dr. Whalen Consults: 03/29/18 03:51 Nursing Referral for Wound Care Routine Comment: amputated toes R foot Physician Instructions: Reason For Exam: admission assessment 03/29/18 03:57 Transition In Care/Readmission Reduction Routine Comment: Physician Instructions: Reason For Exam: admission assessment 03/29/18 03:58 Social Work Referral Routine Comment: admission assessment Physician Instructions: Reason For Exam: candy score 9 03/29/18 08:47 Consult [Physician Consult] Routine Comment: Consulting Provider: Chuy Spaulding Consulting Physician: Chuy Spaulding Reason for Consult: A fib 03/29/18 15:30 General Surgery Consult Routine Comment: Consulting Provider: Fabiano Keller Consulting Physician: Fabiano Keller Reason for Consult: concern for ischemic bowel 03/29/18 16:04 Podiatry Consult Routine Comment: Consulting Provider: Makenna George Consulting Physician: Makenna George Reason for Consult: R foot wound 03/29/18 17:16 Consult [Physician Consult] Routine Comment: Consulting Provider: Laila Atkinson Consulting Physician: Laila Atkinson Reason for Consult: pleural effusion 03/29/18 20:44 Consult [Physician Consult] Routine Comment: Consulting Provider: Nathen Long Consulting Physician: Nathen Long Reason for Consult: shock 03/30/18 09:18 Palliative Care Consult Routine Comment: Consulting Provider: Poly Melara Physician Instructions: Patient with advance directive in physical chart Reason For Exam: goals of care 03/30/18 11:40 Hospice [Case Management Referral] Routine Comment: Physician Instructions: Reason For Exam: [facility] eval Reason for Referral: Hospice Eval Time Spent in preparation of Discharge (in minutes): 45 Hospital Course - Lab Results Lab Results: Micro Results 03/28/18 15:00 Blood Blood Culture - Preliminary NO GROWTH AFTER 24 HOURS 03/28/18 14:45 Blood Blood Culture - Preliminary NO GROWTH AFTER 24 HOURS Most Recent Lab Values WBC 12.9 10^3/uL (4.5-11.0) H D 03/30/18 06:00 RBC 4.72 10^6/uL (3.5-6.1) 03/30/18 06:00 Hgb 13.3 g/dL (14.0-18.0) L 03/30/18 06:00 Hct 41.3 % (42.0-52.0) L 03/30/18 06:00 MCV 87.5 fl (80.0-105.0) 03/30/18 06:00 MCH 28.2 pg (25.0-35.0) 03/30/18 06:00 MCHC 32.2 g/dl (31.0-37.0) 03/30/18 06:00 RDW 18.1 % (11.5-14.5) H 03/30/18 06:00 Plt Count 179 10^3/uL (120.0-450.0) 03/30/18 06:00 MPV 10.7 fl (7.0-11.0) 03/30/18 06:00 Neut % (Auto) 83.8 % (50.0-68.0) H 03/30/18 06:00 Lymph % (Auto) 5.3 % (22.0-35.0) L 03/30/18 06:00 Armstrong % (Auto) 10.8 % (1.0-6.0) H 03/30/18 06:00 Eos % (Auto) 0.0 % (1.5-5.0) L 03/30/18 06:00 Baso % (Auto) 0.1 % (0.0-3.0) 03/30/18 06:00 Lymph # (Auto) 0.7 (1.2-3.4) L 03/30/18 06:00 Armstrong # (Auto) 1.4 (0.1-0.6) H 03/30/18 06:00 Eos # (Auto) 0.0 (0.0-0.7) 03/30/18 06:00 Baso # (Auto) 0.01 K/mm3 (0.0-2.0) 03/30/18 06:00 Absolute Neuts (auto) 10.81 (1.4-6.5) H 03/30/18 06:00 PT 29.0 SECONDS (9.4-12.5) H 03/30/18 06:00 INR 2.57 03/30/18 06:00 APTT 76.4 Seconds (26.9-38.3) H 03/29/18 15:30 pCO2 25 mm/Hg (35-45) L 03/30/18 05:15 pO2 63.0 mm/Hg (80-100) L 03/30/18 05:15 HCO3 12.9 mmol/L (21-28) L 03/30/18 05:15 ABG pH 7.32 (7.35-7.45) L 03/30/18 05:15 ABG Total CO2 13.7 mmol.L (22-28) L 03/30/18 05:15 ABG O2 Saturation 91.1 % (95-98) L 03/30/18 05:15 ABG O2 Content 17.0 ML/dl (15-23) 03/30/18 05:15 ABG Base Excess -11.4 mmol/L (-2.0-3.0) L 03/30/18 05:15 ABG Hemoglobin 13.4 g/dL (11.7-17.4) 03/30/18 05:15 ABG Carboxyhemoglobin 0.8 % (0.5-1.5) 03/30/18 05:15 POC ABG HHb (Measured) 8.8 % (0-5) H 03/30/18 05:15 ABG Methemoglobin 0.1 % (0.0-3.0) 03/30/18 05:15 ABG O2 Capacity 18.7 mL/dl (16-24) 03/30/18 05:15 ABG Potassium 5.3 mmol/L (3.6-5.2) H 03/29/18 14:45 VBG pH 7.25 (7.32-7.43) L 03/29/18 18:30 VBG pCO2 30.0 (40-60) L 03/29/18 18:30 VBG HCO3 13.2 mmol/l (21-28) L 03/29/18 18:30 VBG Total CO2 14.1 mmol.L (22-28) L 03/29/18 18:30 VBG O2 Sat (Calc) 97.2 % (40-65) H 03/29/18 18:30 VBG Base Excess -12.7 mmol/L (0.0-2.0) L 03/29/18 18:30 VBG Potassium 6.6 mmol/L (3.6-5.2) H* 03/29/18 18:30 Hgb O2 Saturation 90.3 % (95.0-98.0) L 03/30/18 05:15 Sodium 131.0 mmol/L (132-148) L 03/29/18 18:30 Chloride 96.0 mmol/L (98-107) L 03/29/18 18:30 Glucose 189 mg/dl (75-110) H 03/29/18 18:30 Lactate 11.4 mmol/L (0.7-2.1) H* 03/29/18 18:30 FiO2 40.0 % 03/30/18 05:15 Blood Gas Comments Given to rn 03/28/18 16:10 Crit Value Called To Aimee giraldo 03/29/18 18:30 Crit Value Called By Atc 03/29/18 18:30 Blood Gas Notified Time 1900 03/29/18 18:30 Sodium 140 mmol/L (132-148) 03/30/18 06:00 Potassium 6.2 mmol/L (3.6-5.0) H* 03/30/18 06:00 Chloride 100 mmol/L (98-107) 03/30/18 06:00 Carbon Dioxide 16 mmol/L (21-33) L 03/30/18 06:00 Anion Gap 30 (10-20) H 03/30/18 06:00 BUN 67 mg/dL (7-21) H 03/30/18 06:00 Creatinine 4.3 mg/dl (0.8-1.5) H 03/30/18 06:00 Est GFR ( Amer) 17 03/30/18 06:00 Est GFR (Non-Af Amer) 14 03/30/18 06:00 POC Glucose (mg/dL) 153 mg/dL (65-110) H 03/30/18 07:49 Random Glucose 51 mg/dL (70-110) L 03/30/18 06:00 Hemoglobin A1c 8.8 % (4.2-6.5) H 03/29/18 09:45 Serum Osmolality 308 mosm/kg (272-300) H 03/29/18 22:30 Lactic Acid 10.1 mmol/L (0.7-2.1) H* 03/30/18 06:00 Calcium 8.4 mg/dL (8.4-10.5) 03/30/18 06:00 Phosphorus 7.9 mg/dL (2.5-4.5) H 03/30/18 06:00 Magnesium 2.3 mg/dL (1.7-2.2) H 03/30/18 06:00 Total Bilirubin 2.7 mg/dL (0.2-1.3) H 03/30/18 06:00 AST 3530 U/L (17-59) H 03/30/18 06:00 ALT 928 U/L (7-56) H 03/30/18 06:00 Alkaline Phosphatase 101 U/L (38-126) 03/30/18 06:00 Ammonia 78 umol/L (9-33) H 03/30/18 09:00 Lactate Dehydrogenase 524 U/L (333-699) 03/29/18 15:40 Total Creatine Kinase 181 U/L (35-230) 03/29/18 15:40 Troponin I 0.07 ng/mL 03/29/18 13:25 NT-Pro-B Natriuret Pep 77789 pg/mL (0-450) H 03/28/18 14:45 Total Protein 7.7 g/dL (5.8-8.3) 03/30/18 06:00 Albumin 4.3 g/dL (3.0-4.8) 03/30/18 06:00 Globulin 3.4 gm/dL 03/30/18 06:00 Albumin/Globulin Ratio 1.3 (1.1-1.8) 03/30/18 06:00 Triglycerides 108 mg/dL (35-160) 03/30/18 06:00 Cholesterol 120 mg/dL (130-200) L 03/30/18 06:00 LDL Cholesterol Direct 78 mg/dL (0-129) 03/30/18 06:00 HDL Cholesterol 24 mg/dL (29-60) L 03/30/18 06:00 Lipase 25 U/L (23-300) 03/28/18 14:45 Free T4 1.59 ng/dL (0.78-2.19) 03/29/18 10:00 TSH 3rd Generation 4.69 mIU/mL (0.46-4.68) H 03/29/18 10:00 Arterial Blood Potassium 5.3 mmol/L (3.6-5.2) H 03/29/18 14:45 Venous Blood Potassium 6.6 mmol/L (3.6-5.2) H* 03/29/18 18:30 Urine Color Yellow (YELLOW) 03/29/18 16:27 Urine Appearance Clear (CLEAR) 03/29/18 16:27 Urine pH 5.5 (4.7-8.0) 03/29/18 16:27 Ur Specific De Young >= 1.030 (1.005-1.035) 03/29/18 16:27 Urine Protein Negative mg/dL (<30 mg/dL) 03/29/18 16:27 Urine Glucose (UA) Negative mg/dL (NEGATIVE) 03/29/18 16:27 Urine Ketones Negative mg/dL (NEGATIVE) 03/29/18 16:27 Urine Blood Negative (NEGATIVE) 03/29/18 16:27 Urine Nitrate Negative (NEGATIVE) 03/29/18 16:27 Urine Bilirubin Negative (NEGATIVE) 03/29/18 16:27 Urine Urobilinogen 0.2 E.U./dL (<1 E.U./dL) 03/29/18 16:27 Ur Leukocyte Esterase Negative Miguelangel/uL (NEGATIVE) 03/29/18 16:27 Ur Random Creatinine 150 mg/dL 03/29/18 18:50 U Random Total Protein 14 mg/L 03/29/18 17:30 Ur Random Sodium < 5 meq/L 03/29/18 18:50 Digoxin < 0.4 ng/mL (0.8-2.0) L 03/29/18 17:20 Salicylates < 1 mg/dL (2.0-20.0) L 03/29/18 22:30 Urine Opiates Screen Negative (NEGATIVE) 03/29/18 17:30 Urine Methadone Screen Negative (NEGATIVE) 03/29/18 17:30 Acetaminophen < 10.0 ug/ml (10.0-20.0) L 03/29/18 22:30 Ur Barbiturates Screen Negative (NEGATIVE) 03/29/18 17:30 Ur Phencyclidine Scrn Negative (NEGATIVE) 03/29/18 17:30 Ur Amphetamines Screen Negative (NEGATIVE) 03/29/18 17:30 U Benzodiazepines Scrn Negative (NEGATIVE) 03/29/18 17:30 U Oth Cocaine Metabols Negative (NEGATIVE) 03/29/18 17:30 U Cannabinoids Screen Negative (NEGATIVE) 03/29/18 17:30 Alcohol, Quantitative < 10 mg/dL (0-10) 03/29/18 22:30 - Hospital Course Hospital Course: 72yo male PMHx Afib, systolic CHF, HTN, HLD, DM2, Gout, CAD s/p stents, AICD, 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 Patient complained of feeling like he was retaining fluid and complained of difficulty urinating and some associated sob. In the ER patient was found to be in rapid Afib and was placed on a cardizem gtt and admitted to telemetry. The next morning patient was seen and examined at bedside and he was resting comfortably. He reported that he was still having some mild lower abdominal discomfort but believed it was secondary to not having urinated well. 12 point ROS was reviewed and negative. Cardizem gtt was discontinued by cardio and patient was placed on PO lopressor. Later that afternoon patient began to complain of b/l lower back pain and di scomfort and was unable to find a comfortable position to rest in. He was refusing the bains at first but finally agreed and had 500cc output when placed. Patient began to complain of weakness and discomfort and reported to urged to have BM however was unable to when he was at the commode. He was ao x 3 and denied any chest pain but did admit to some sob. Patient denied any abdominal pain but continued to complain of b/l LBP. Patient clinically worsened and started to desaturate and an ROPE CLEANER was called. Patient was also noted to be hypotensive and started on levophed gtt and transferred to MICU for further management. In the MICU patient reported some mild improvement in symptoms. Patient's POA was at bedside and patient was confirmed to be DNR/DNI. Patient continued to complain of weakness but denied any chest pain and SOB. Blood work remarkable for severe metabolic acidosis with worsening renal failure. Sepsis protocol was followed during ROPE CLEANER with patient given 1L bolus and started on broad spectrum IV abx. Patient blood cultures prelim negative x 2 and urine culture and UA pending. Patient's abdominal distention was concerning for SBP however no leukocytosis or fevers made sepsis low on differential. In light of Afib, ischemic bowel/acute abdomen was concern; surgery consulted and in light of CT Abd/pelvis and clinical picture believe abdominal source unlikely the cause of elevated lactate. Supratherapuetic INR noted; coumadin on hold. Patient on bicarb gtt and hydration with MAP > 65. Cocktail of insulin, D50, calcium gluconate administered for hyperkalemia with repeat BMP ordered. Patient continued on levophed gtt. Patient was given Vitamin K and FFP and INR normalized. A bedside echo was done which showed EF 10% with systolic function is severely impaired, global hypokinesis of LV, no LV thrombus, RV mod dilated. Patient was continued to be diuresied. Overnight the patient became more confused and anxious. Labs this AM revealed multiorgan failure with ischemic liver, renal failure, worsening lactate. Patient wanted to continue being DNR/DNI patient's POA Mark Fair decided to pursue comfort care in accordance with patient's wishes as defined in his advanced directive. Patient was discharged to hospice services and psychosocial and spiritual support was offered to patient and family. Discharge Exam - Eye Exam Eye Exam: Normal appearance. absent: Conjunctival injection, Scleral icterus - ENT Exam ENT Exam: Mucous Membranes Dry - Respiratory Exam Respiratory Exam: Decreased Breath Sounds. absent: Rales, Rhonchi, Wheezes - Cardiovascular Exam Cardiovascular Exam: RRR, +S1, +S2 - GI/Abdominal Exam GI & Abdominal Exam: Distended, Soft - Neurological Exam Neurological exam: Altered - Psychiatric Exam Psychiatric exam: Anxious - Skin Skin Exam: Dry, Intact Discharge Plan - Follow Up Plan Condition: GUARDED Disposition: HOSPICE - MEDICAL FACILITY Instructions: Heart Failure (DC), Heart Failure (GEN), Pacemaker (DC), Pacemaker (GEN), Pulmonary Edema (DC), Pulmonary Edema (GEN), Cellulitis (DC), Cellulitis (GEN), Ascites (DC), Ascites (GEN) <Kike Holt - Last Filed: 03/30/18 16:32> Provider - Provider Date of Admission: 03/28/18 16:41 Attending physician: Kike Holt MD Consults: 03/29/18 03:51 Nursing Referral for Wound Care Routine Comment: amputated toes R foot Physician Instructions: Reason For Exam: admission assessment 03/29/18 03:57 Transition In Care/Readmission Reduction Routine Comment: Physician Instructions: Reason For Exam: admission assessment 03/29/18 03:58 Social Work Referral Routine Comment: admission assessment Physician Instructions: Reason For Exam: candy score 9 03/29/18 08:47 Consult [Physician Consult] Routine Comment: Consulting Provider: Chuy Spaulding Consulting Physician: Chuy Spaulding Reason for Consult: A fib 03/29/18 15:30 General Surgery Consult Routine Comment: Consulting Provider: Fabiano Keller Consulting Physician: Fabiano Keller Reason for Consult: concern for ischemic bowel 03/29/18 16:04 Podiatry Consult Routine Comment: Consulting Provider: Makenna George Consulting Physician: Makenna George Reason for Consult: R foot wound 03/29/18 17:16 Consult [Physician Consult] Routine Comment: Consulting Provider: Laila Atkinson Consulting Physician: Laila Atkinson Reason for Consult: pleural effusion 03/29/18 20:44 Consult [Physician Consult] Routine Comment: Consulting Provider: Nathen Long Consulting Physician: Nathen Long Reason for Consult: shock 03/30/18 09:18 Palliative Care Consult Routine Comment: Consulting Provider: Poly Melara Physician Instructions: Patient with advance directive in physical chart Reason For Exam: goals of care 03/30/18 11:40 Hospice [Case Management Referral] Routine Comment: Physician Instructions: Reason For Exam: [facility] eval Reason for Referral: Hospice [facility] Hospital Course - Lab Results Lab Results: Micro Results 03/28/18 15:00 Blood Blood Culture - Preliminary NO GROWTH AFTER 48 HOURS 03/28/18 14:45 Blood Blood Culture - Preliminary NO GROWTH AFTER 48 HOURS Most Recent Lab Values WBC 12.9 10^3/uL (4.5-11.0) H D 03/30/18 06:00 RBC 4.72 10^6/uL (3.5-6.1) 03/30/18 06:00 Hgb 13.3 g/dL (14.0-18.0) L 03/30/18 06:00 Hct 41.3 % (42.0-52.0) L 03/30/18 06:00 MCV 87.5 fl (80.0-105.0) 03/30/18 06:00 MCH 28.2 pg (25.0-35.0) 03/30/18 06:00 MCHC 32.2 g/dl (31.0-37.0) 03/30/18 06:00 RDW 18.1 % (11.5-14.5) H 03/30/18 06:00 Plt Count 179 10^3/uL (120.0-450.0) 03/30/18 06:00 MPV 10.7 fl (7.0-11.0) 03/30/18 06:00 Neut % (Auto) 83.8 % (50.0-68.0) H 03/30/18 06:00 Lymph % (Auto) 5.3 % (22.0-35.0) L 03/30/18 06:00 Armstrong % (Auto) 10.8 % (1.0-6.0) H 03/30/18 06:00 Eos % (Auto) 0.0 % (1.5-5.0) L 03/30/18 06:00 Baso % (Auto) 0.1 % (0.0-3.0) 03/30/18 06:00 Lymph # (Auto) 0.7 (1.2-3.4) L 03/30/18 06:00 Armstrong # (Auto) 1.4 (0.1-0.6) H 03/30/18 06:00 Eos # (Auto) 0.0 (0.0-0.7) 03/30/18 06:00 Baso # (Auto) 0.01 K/mm3 (0.0-2.0) 03/30/18 06:00 Absolute Neuts (auto) 10.81 (1.4-6.5) H 03/30/18 06:00 PT 29.0 SECONDS (9.4-12.5) H 03/30/18 06:00 INR 2.57 03/30/18 06:00 APTT 76.4 Seconds (26.9-38.3) H 03/29/18 15:30 pCO2 25 mm/Hg (35-45) L 03/30/18 05:15 pO2 63.0 mm/Hg (80-100) L 03/30/18 05:15 HCO3 12.9 mmol/L (21-28) L 03/30/18 05:15 ABG pH 7.32 (7.35-7.45) L 03/30/18 05:15 ABG Total CO2 13.7 mmol.L (22-28) L 03/30/18 05:15 ABG O2 Saturation 91.1 % (95-98) L 03/30/18 05:15 ABG O2 Content 17.0 ML/dl (15-23) 03/30/18 05:15 ABG Base Excess -11.4 mmol/L (-2.0-3.0) L 03/30/18 05:15 ABG Hemoglobin 13.4 g/dL (11.7-17.4) 03/30/18 05:15 ABG Carboxyhemoglobin 0.8 % (0.5-1.5) 03/30/18 05:15 POC ABG HHb (Measured) 8.8 % (0-5) H 03/30/18 05:15 ABG Methemoglobin 0.1 % (0.0-3.0) 03/30/18 05:15 ABG O2 Capacity 18.7 mL/dl (16-24) 03/30/18 05:15 ABG Potassium 5.3 mmol/L (3.6-5.2) H 03/29/18 14:45 VBG pH 7.25 (7.32-7.43) L 03/29/18 18:30 VBG pCO2 30.0 (40-60) L 03/29/18 18:30 VBG HCO3 13.2 mmol/l (21-28) L 03/29/18 18:30 VBG Total CO2 14.1 mmol.L (22-28) L 03/29/18 18:30 VBG O2 Sat (Calc) 97.2 % (40-65) H 03/29/18 18:30 VBG Base Excess -12.7 mmol/L (0.0-2.0) L 03/29/18 18:30 VBG Potassium 6.6 mmol/L (3.6-5.2) H* 03/29/18 18:30 Hgb O2 Saturation 90.3 % (95.0-98.0) L 03/30/18 05:15 Sodium 131.0 mmol/L (132-148) L 03/29/18 18:30 Chloride 96.0 mmol/L (98-107) L 03/29/18 18:30 Glucose 189 mg/dl (75-110) H 03/29/18 18:30 Lactate 11.4 mmol/L (0.7-2.1) H* 03/29/18 18:30 FiO2 40.0 % 03/30/18 05:15 Blood Gas Comments Given to rn 03/28/18 16:10 Crit Value Called To Aimee giraldo 03/29/18 18:30 Crit Value Called By Atc 03/29/18 18:30 Blood Gas Notified Time 1900 03/29/18 18:30 Sodium 140 mmol/L (132-148) 03/30/18 06:00 Potassium 6.2 mmol/L (3.6-5.0) H* 03/30/18 06:00 Chloride 100 mmol/L (98-107) 03/30/18 06:00 Carbon Dioxide 16 mmol/L (21-33) L 03/30/18 06:00 Anion Gap 30 (10-20) H 03/30/18 06:00 BUN 67 mg/dL (7-21) H 03/30/18 06:00 Creatinine 4.3 mg/dl (0.8-1.5) H 03/30/18 06:00 Est GFR ( Amer) 17 03/30/18 06:00 Est GFR (Non-Af Amer) 14 03/30/18 06:00 POC Glucose (mg/dL) 124 mg/dL (65-110) H 03/30/18 11:05 Random Glucose 51 mg/dL (70-110) L 03/30/18 06:00 Hemoglobin A1c 8.8 % (4.2-6.5) H 03/29/18 09:45 Serum Osmolality 308 mosm/kg (272-300) H 03/29/18 22:30 Lactic Acid 10.1 mmol/L (0.7-2.1) H* 03/30/18 06:00 Calcium 8.4 mg/dL (8.4-10.5) 03/30/18 06:00 Phosphorus 7.9 mg/dL (2.5-4.5) H 03/30/18 06:00 Magnesium 2.3 mg/dL (1.7-2.2) H 03/30/18 06:00 Total Bilirubin 2.7 mg/dL (0.2-1.3) H 03/30/18 06:00 AST 3530 U/L (17-59) H 03/30/18 06:00 ALT 928 U/L (7-56) H 03/30/18 06:00 Alkaline Phosphatase 101 U/L (38-126) 03/30/18 06:00 Ammonia 78 umol/L (9-33) H 03/30/18 09:00 Lactate Dehydrogenase 524 U/L (333-699) 03/29/18 15:40 Total Creatine Kinase 181 U/L (35-230) 03/29/18 15:40 Troponin I 0.07 ng/mL 03/29/18 13:25 NT-Pro-B Natriuret Pep 11262 pg/mL (0-450) H 03/28/18 14:45 Total Protein 7.7 g/dL (5.8-8.3) 03/30/18 06:00 Albumin 4.3 g/dL (3.0-4.8) 03/30/18 06:00 Globulin 3.4 gm/dL 03/30/18 06:00 Albumin/Globulin Ratio 1.3 (1.1-1.8) 03/30/18 06:00 Triglycerides 108 mg/dL (35-160) 03/30/18 06:00 Cholesterol 120 mg/dL (130-200) L 03/30/18 06:00 LDL Cholesterol Direct 78 mg/dL (0-129) 03/30/18 06:00 HDL Cholesterol 24 mg/dL (29-60) L 03/30/18 06:00 Lipase 25 U/L (23-300) 03/28/18 14:45 Free T4 1.59 ng/dL (0.78-2.19) 03/29/18 10:00 TSH 3rd Generation 4.69 mIU/mL (0.46-4.68) H 03/29/18 10:00 Arterial Blood Potassium 5.3 mmol/L (3.6-5.2) H 03/29/18 14:45 Venous Blood Potassium 6.6 mmol/L (3.6-5.2) H* 03/29/18 18:30 Urine Color Yellow (YELLOW) 03/29/18 16:27 Urine Appearance Clear (CLEAR) 03/29/18 16:27 Urine pH 5.5 (4.7-8.0) 03/29/18 16:27 Ur Specific De Young >= 1.030 (1.005-1.035) 03/29/18 16:27 Urine Protein Negative mg/dL (<30 mg/dL) 03/29/18 16:27 Urine Glucose (UA) Negative mg/dL (NEGATIVE) 03/29/18 16:27 Urine Ketones Negative mg/dL (NEGATIVE) 03/29/18 16:27 Urine Blood Negative (NEGATIVE) 03/29/18 16:27 Urine Nitrate Negative (NEGATIVE) 03/29/18 16: Urine Bilirubin Negative (NEGATIVE) 03/29/18 16: Urine Urobilinogen 0.2 E.U./dL (<1 E.U./dL) 03/29/18 16:27 Ur Leukocyte Esterase Negative Miguelangel/uL (NEGATIVE) 03/29/18 16:27 Ur Random Creatinine 150 mg/dL 03/29/18 18:50 U Random Total Protein 14 mg/L 03/29/18 17:30 Ur Random Sodium < 5 meq/L 03/29/18 18:50 Digoxin < 0.4 ng/mL (0.8-2.0) L 03/29/18 17:20 Salicylates < 1 mg/dL (2.0-20.0) L 03/29/18 22:30 Urine Opiates Screen Negative (NEGATIVE) 03/29/18 17:30 Urine Methadone Screen Negative (NEGATIVE) 03/29/18 17:30 Acetaminophen < 10.0 ug/ml (10.0-20.0) L 03/29/18 22:30 Ur Barbiturates Screen Negative (NEGATIVE) 03/29/18 17:30 Ur Phencyclidine Scrn Negative (NEGATIVE) 03/29/18 17:30 Ur Amphetamines Screen Negative (NEGATIVE) 03/29/18 17:30 U Benzodiazepines Scrn Negative (NEGATIVE) 03/29/18 17:30 U Oth Cocaine Metabols Negative (NEGATIVE) 03/29/18 17:30 U Cannabinoids Screen Negative (NEGATIVE) 03/29/18 17:30 Alcohol, Quantitative < 10 mg/dL (0-10) 03/29/18 22:30 - Hospital Course Hospital Course: Pt seen and examined by me. I have reviewed the note of the durable medical equipment technician and I agree with it. I have discussed the assessment and plan with the resident. I have reviewed the medications and the last labs. Pt with shock probably cardiogenic in nature. Spoke to Dr Spaulding and decision was to start Dobutamine. He has hyperkalemia with HUGO. This is severe and worsening. He was not a candidate for HD yesterday due to the elevated INR. The pt's POA has decided to make him comfort care. He will be placed under hospice services.
[2018-03-30 15:28] VITALS: PULSE 99
--- NOTE | 2018-03-30 15:41 | PN ---
DATE: 03/30/2018 SUBJECTIVE: The patient is seen lying in bed in the CCU. He is in wrist restraints. He became agitated and confused last evening. He was restless and tachypneic. He was transferred to the CCU for further management. He is noted to have metabolic acidosis with pH of 7.16. He was hypotensive well, was given IV fluids and started on norepinephrine. A sodium bicarbonate infusion was initiated as well. He is awake and alert, but markedly confused this morning. Current medications include DuoNeb inhaler, insulin, norepinephrine at 4 mcg per minute, meropenem, Pepcid and sodium bicarbonate infusion. OBJECTIVE: GENERAL: He is agitated appearing middle-aged man. VITAL SIGNS: Blood pressure is 88/60 with a pulse of 70 in atrial fibrillation, respirations are 26 and he is afebrile. HEENT: No JVD. CHEST: Bilateral scattered rhonchi. HEART: PMI displaced laterally with soft tones noted. ABDOMEN: Distended. Bowel sounds are present. Ascites is apparent. EXTREMITIES: 2+ edema. DIAGNOSTIC DATA: Potassium 6.2, bicarbonate 16, BUN and creatinine 67 and 4.3. Lactic acid is 10.1. White count is 12.9, hematocrit 13.3 and 41.3 with platelet count of 179,000. INR is 2.57. Followup arterial blood gas showed pH 7.32, pCO2 of 25 and pO2 of 63. AST and ALT 3530 and 928 respectively. Ammonia level 78. IMPRESSION: 1. Altered mental status appears likely triggered by metabolic causes. 2. Lactic acidosis, etiology uncertain. 3. Hypotension likely combined cause including cardiogenic and possibly re-distributive shock secondary to left ventricular dysfunction. 4. Coronary artery disease status post remote myocardial fraction with severe left ventricular systolic dysfunction. 5. Chronic atrial fibrillation. 6. Status post implantable cardioverter-defibrillator implant. 7. Progressive renal insufficiency. 8. Coagulopathy. 9. Ascites, unclear if this is due to liver disease or passive congestion and resultant third spacing. 10. Worsening transaminase elevation, etiology unclear. RECOMMENDATION: 1. Continue pressor support at the present time. If tolerated, low-dose dobutamine will be added once blood pressure is improved. 2. Blood cultures are pending. Broad-spectrum antibiotics should continue. Evaluation for hepatic dysfunction should proceed. DNR/DNI order is in place. Further recommendations will be made based upon his clinical course and results of findings. We will follow and make further things as appropriate. Chuy Spaulding MD [facility]DP[facility]
== END 2018-03-30 13:50 | disposition hospice, inpatient (51) | DRG 682 ==
LOC: ED 12:33 → ERH 16:41 → 2RNO 03-29 00:06 → CCU 03-29 16:07
PROVIDERS: ADMIT Internal Medicine Nephrology; ATTEND Internal Medicine Nephrology
PROC: 3E0F7GC Introduction of Other Therapeutic Substance into Respiratory Tract, Via Natural or Artificial Opening (ICD-10-PCS; principal; 2018-03-29)
PROC: 30233K1 Transfusion of Nonautologous Frozen Plasma into Peripheral Vein, Percutaneous Approach (ICD-10-PCS; 2018-03-29)
DX: N17.9 Acute kidney failure, unspecified (principal); I50.23 Acute on chronic systolic (congestive) heart failure; R57.0 Cardiogenic shock; J96.91 Respiratory failure, unspecified with hypoxia; E87.2 Acidosis; R18.8 Other ascites; I13.0 Hypertensive heart and chronic kidney disease with heart failure and stage 1 through stage 4 chronic kidney disease, or unspecified chronic kidney disease; I42.9 Cardiomyopathy, unspecified; E78.00 Pure hypercholesterolemia, unspecified; J43.9 Emphysema, unspecified; Z66 Do not resuscitate; E87.5 Hyperkalemia; E11.22 Type 2 diabetes mellitus with diabetic chronic kidney disease; N18.9 Chronic kidney disease, unspecified; I48.2 Chronic atrial fibrillation; I25.10 Atherosclerotic heart disease of native coronary artery without angina pectoris; M10.9 Gout, unspecified; E11.42 Type 2 diabetes mellitus with diabetic polyneuropathy; F17.210 Nicotine dependence, cigarettes, uncomplicated; I25.2 Old myocardial infarction; Z51.5 Encounter for palliative care; K80.20 Calculus of gallbladder without cholecystitis without obstruction; Z85.028 Personal history of other malignant neoplasm of stomach; Z78.1 Physical restraint status; Z79.01 Long term (current) use of anticoagulants; Z95.810 Presence of automatic (implantable) cardiac defibrillator; Z95.1 Presence of aortocoronary bypass graft; Z95.5 Presence of coronary angioplasty implant and graft; Z89.429 Acquired absence of other toe(s), unspecified side

== ENCOUNTER 2018-03-30 13:54 | Inpatient (IN) | payer OTHER ==
[2018-03-30] MEDS ORDERED: Morphine 4 mg/ml ISec IVP STA (14:03)
[2018-03-30] MEDS ORDERED: DiphenhydrAMINE 50 mg/ml Inj IVP PRN (14:05)
[2018-03-30] MEDS: Morphine PCA 1 mg/ml (30ml) 30 ML IV PRN (17:04)
[2018-03-30] MEDS: Morphine 4 mg/ml ISec IVP STA ×2 (17:18→17:25)
[2018-03-30 20:26] VITALS: BP 88/60; PULSE 74; TEMP 98.3; BMI 29.9
[2018-03-30] MEDS ORDERED: Influenza Vaccine 60 mcg/0.5 mL SYR (4YR UP) IM ONE (20:26)
[2018-03-30] MEDS ORDERED: Pneumococcal 23-Valent Vaccine IM ONE (20:26)
[2018-03-31 00:19] VITALS: RESP 20
[2018-03-31] MEDS: Morphine PCA 1 mg/ml (30ml) 30 ML IV PRN (00:54)
--- NOTE | 2018-03-31 02:09 | CP.PCM.PRO ---
Pronouncement of Note - Clinical Findings Physical Exam: No Response Verbal/Painful Stimuli, Absent Peripheral Puls es{Carotid & Femoral}, Absent Heart & Breath Sounds, No Pupillary Light Reflex, No Corneal Reflex, Pupils Fixed & Dilated, Absence of Vital Signs - Pronouncement Time Time of Pronouncement of : 02:02 - Notifications Pronouncement Notifications: Family Notified (POA contacted by nurse), Atending Notified (Message was left for Dr. Holt on his service line) Activity Therapy Teacher Notified: No - Autopsy Autopsy Requested: No - [place] [id number]
== END 2018-03-31 02:02 | DRG 682 ==
LOC: CCU 13:54
PROVIDERS: ADMIT Internal Medicine Nephrology; ATTEND Internal Medicine Nephrology
DX: N17.9 Acute kidney failure, unspecified (principal); I50.23 Acute on chronic systolic (congestive) heart failure; J96.91 Respiratory failure, unspecified with hypoxia; E87.2 Acidosis; R18.8 Other ascites; I13.0 Hypertensive heart and chronic kidney disease with heart failure and stage 1 through stage 4 chronic kidney disease, or unspecified chronic kidney disease; I42.9 Cardiomyopathy, unspecified; R57.0 Cardiogenic shock; E78.00 Pure hypercholesterolemia, unspecified; J43.9 Emphysema, unspecified; Z66 Do not resuscitate; E87.5 Hyperkalemia; E11.22 Type 2 diabetes mellitus with diabetic chronic kidney disease; E11.42 Type 2 diabetes mellitus with diabetic polyneuropathy; N18.9 Chronic kidney disease, unspecified; I48.2 Chronic atrial fibrillation; I25.10 Atherosclerotic heart disease of native coronary artery without angina pectoris; M10.9 Gout, unspecified; F17.210 Nicotine dependence, cigarettes, uncomplicated; I25.2 Old myocardial infarction; K80.20 Calculus of gallbladder without cholecystitis without obstruction; Z95.1 Presence of aortocoronary bypass graft; Z95.810 Presence of automatic (implantable) cardiac defibrillator; Z95.5 Presence of coronary angioplasty implant and graft; Z89.429 Acquired absence of other toe(s), unspecified side; Z85.028 Personal history of other malignant neoplasm of stomach